=== PATIENT | female | born 1950 | race Hispanic/Latino ===

== ENCOUNTER 2017-12-04 22:34 | Emergency (ER) | payer OTHER ==
[2017-12-04 23:45] LABS: Urine Blood 1+ (NEG); Urine Glucose NEGATIVE (NEG); Urine Protein NEGATIVE (NEG); Urine Specific Gravity >1.030 (1.005-1.030); Urine pH 5.5 (5.0-7.0)
--- NOTE | 2017-12-05 00:12 | ER ---
Nurse's Notes [facility] Name: Shelia Valentine Age: 67 yrs Sex: Female : 1950 Arrival Date: 12/04/2017 Time: 22:37 Bed 6 Private MD: Diagnosis: Strain of other muscle(s) and tendon(s) at lower leg level, left leg;Headache Presentation: 12/04 22:40 Presenting complaint: Patient states: Patient reports her lower left leg and back ea started hurting yesterday and today it started to get worse today. Transition of care: patient was not received from another setting of care. Onset of symptoms was December 04, 2017. Care prior to arrival: None. 22:40 Method Of Arrival: Ambulatory ea 22:40 Acuity: ADDI 4 ea Triage Assessment: 22:40 Headache History: The patient has had previous headaches and this one is similar to ea previous episodes. General: Appears in no apparent distress. Behavior is calm, cooperative, appropriate for age. Pain: Complains of pain in left leg. 22:40 Pain: Pain currently is 7 out of 10 on a pain scale. Pain began 2-3 days ago. Also ea complains of no other associated symptoms. Historical: - Allergies: 23:07 Cipro; ea 23:07 Codeine; ea 23:07 HYDROCODONE; ea 23:07 Morphine; ea 23:07 PENICILLINS; ea 23:07 Sulfa (Sulfonamide Antibiotics); ea - Home Meds: 23:07 lisinopril 20 mg Oral tab twice daily [Active]; ea - PMHx: 23:07 Hypertension; GERD; BRADYCARDIA; ea - PSHx: 23:07 Appendectomy; PACEMAKER; ea - Immunization history:: Adult Immunizations. - Social history:: Smoking status: Patient/guardian denies using tobacco. Screenin:45 Abuse screen: Denies threats or abuse. Nutritional screening: No deficits noted. ea Tuberculosis screening: No symptoms or risk factors identified. Fall Risk None identified. Assessment: 23:45 Reassessment: Patient and/or family updated on plan of care and expected duration. Pain ea level reassessed. Patient is alert, oriented x 3, equal unlabored respirations, skin warm/dry/pink. 23:45 Reassessment: Patient and/or family updated on plan of care and expected duration. Pain ea level reassessed. Patient is alert, oriented x 3, equal unlabored respirations, skin warm/dry/pink. Pain: Complains of pain in left leg. Neuro: Level of Consciousness is awake, alert, obeys commands, Oriented to person, place, time, situation. 23:45 General: Behavior is calm, cooperative, appropriate for age. Cardiovascular: Patient's ea skin is warm and dry. Respiratory: Airway is patent Respiratory effort is even, unlabored, Respiratory pattern is regular, symmetrical. GI: No signs and/or symptoms were reported involving the gastrointestinal system. : No signs and/or symptoms were reported regarding the genitourinary system. 23:45 Derm: No signs and/or symptoms reported regarding the dermatologic system. Skin is ea pink, warm \T\ dry. 12/05 00:29 Reassessment: Patient and/or family updated on plan of care and expected duration. Pain ea level reassessed. Patient is alert, oriented x 3, equal unlabored respirations, skin warm/dry/pink. Discharge instruction given to patient, verbalized the understanding of instruction. Patient states feeling better. Patient states symptoms have improved. Vital Signs: 12/04 22:47 BP 159 / 87; Pulse 81; Resp 18; Temp 98.7(O); Pulse Ox 96% on R/A; Weight 72.57 kg; ea Height 5 ft. 2 in. (157.48 cm); Pain 7/10; 23:00 BP 120 / 67; Pulse 67; Resp 18 S; Pulse Ox 98% on R/A; ea 12/05 00:14 BP 129 / 79; Pulse 64; Resp 18 S; Pulse Ox 96% on R/A; ea 00:30 BP 132 / 78; Pulse 66; Resp 18; Temp 97.8(O); Pulse Ox 99% on R/A; Pain 0/10; ea 12/04 22:47 Body Mass Index 29.26 (72.57 kg, 157.48 cm) ea ED Course: 12/04 22:37 Patient arrived in ED. mr 22:52 Nash Matthew NP is PHCP. pm1 22:52 Fabián Cabrera MD is Attending Physician. pm1 22:57 Nayana Avery RN is Primary Nurse. ea 23:05 Triage completed. ea 23:45 Arm band placed on right wrist. Patient placed in an exam room, on a stretcher, on ea pulse oximetry. 23:45 Patient has correct armband on for positive identification. Bed in low position. Call ea light in reach. Side rails up X 1. 12/05 00:11 Domenico Jimenes MD is Referral Physician. pm1 00:30 No provider procedures requiring assistance completed. Patient did not have IV access ea during this emergency room visit. Administered Medications: No medications were administered Outcome: 00:12 Discharge ordered by MD. pm1 00:31 Discharged to home ambulatory. ea 00:31 Condition: improved 00:31 Discharge instructions given to patient, Instructed on discharge instructions, follow up and referral plans. medication usage, Demonstrated understanding of instructions, follow-up care, medications, Prescriptions given X 1. 00:31 Patient left the ED. ea Signatures: Meli Christie TiffNash, RETORT FIRER RETORT FIRER pm1 Nayana Avery RN RN ea Corrections: (The following items were deleted from the chart) 00:18 00:16 Reassessment: Patient and/or family updated on plan of care and expected ea duration. Pain level reassessed. Patient is alert, oriented x 3, equal unlabored respirations, skin warm/dry/pink. ea 00:18 00:16 Pain: Complains of pain in left leg ea ea 00: 00:16 Neuro: Level of Consciousness is awake, alert, obeys commands, Oriented to ea person, place, time, situation, ea 00:18 12/04 23:45 Reassessment: Patient and/or family updated on plan of care and expected ea duration. Pain level reassessed. Patient is alert, oriented x 3, equal unlabored respirations, skin warm/dry/pink. ea
--- NOTE | 2017-12-05 00:13 | EDPHYS ---
Physician Documentation [facility] Name: Shelia Valentine Age: 67 yrs Sex: Female : 1950 Arrival Date: 12/04/2017 Time: 22:37 Bed 6 Private MD: ED Physician Fabián Cabrera HPI: 12/05 01:00 This 67 yrs old Female presents to ER via Ambulatory with complaints of pm1 Headache, Left Leg Pain, Abdominal pain. 03:48 The patient complains of pain to the forehead. The patient describes the headache as pm1 aching, Resolved and occasionally present when her pressure is elevated. Patient ran out of her lisinopril 20 mg PO BID for the past three days. Onset: The symptoms/episode began/occurred 3 day(s) ago. Associated signs and symptoms: Pertinent negatives: dizziness, fever, nausea, rash, sinus congestion, sinus tenderness, vomiting, weakness. Severity of symptoms: in the emergency department the pain has resolved. Patient with additional complaints of left lower leg pain for 1 month. No swelling, redness or warmth. Pain improved with massage to left lower leg. Patient reports onset of abdominal pain today that started after eating fried chicken and potatoes. Abdominal pain resolved after bowel movement in the ER. Historical: - Allergies: 12/04 23:07 Cipro; ea 23:07 Codeine; ea 23:07 HYDROCODONE; ea 23:07 Morphine; ea 23:07 PENICILLINS; ea 23:07 Sulfa (Sulfonamide Antibiotics); ea - Home Meds: 23:07 lisinopril 20 mg Oral tab twice daily [Active]; ea - PMHx: 23:07 Hypertension; GERD; BRADYCARDIA; ea - PSHx: 23:07 Appendectomy; PACEMAKER; ea - Immunization history:: Adult Immunizations. - Social history:: Smoking status: Patient/guardian denies using tobacco. ROS: 12/05 03:48 Constitutional: Negative for fever, chills, and weight loss, Eyes: Negative for injury, pm1 pain, redness, and discharge, ENT: Negative for injury, pain, and discharge, Neck: Negative for injury, pain, and swelling, Cardiovascular: Negative for chest pain, palpitations, and edema, Respiratory: Negative for shortness of breath, cough, wheezing, and pleuritic chest pain. Back: Negative for injury and pain. Skin: Negative for injury, rash, and discoloration. Abdomen/GI: Positive for abdominal pain, resolved after bowel movement, Negative for nausea, vomiting, and diarrhea. : Positive for Occasional burning with urination for the past three days, Negative for urinary frequency, small amounts, flank pain. MS/extremity: Positive for pain, of the lateral aspect of left calf, Negative for decreased range of motion, deformity, ecchymosis, erythema, swelling. Neuro: Positive for headache, Negative for numbness, tingling. Exam: 03:53 Constitutional: This is a well developed, well nourished patient who is awake, alert, pm1 and in no acute distress. Head/Face: Normocephalic, atraumatic. Eyes: Pupils equal round and reactive to light, extra-ocular motions intact. Lids and lashes normal. Conjunctiva and sclera are non-icteric and not injected. Cornea within normal limits. Periorbital areas with no swelling, redness, or edema. ENT: Nares patent. No nasal discharge, no septal abnormalities noted. Tympanic membranes are normal and external auditory canals are clear. Oropharynx with no redness, swelling, or masses, exudates, or evidence of obstruction, uvula midline. Mucous membranes moist. Neck: Trachea midline, no thyromegaly or masses palpated, and no cervical lymphadenopathy. Supple, full range of motion without nuchal rigidity, or vertebral point tenderness. No Meningismus. Chest/axilla: Normal chest wall appearance and motion. Nontender with no deformity. No lesions are appreciated. Cardiovascular: Regular rate and rhythm with a normal S1 and S2. No gallops, murmurs, or rubs. Normal PMI, no JVD. No pulse deficits. Respiratory: Lungs have equal breath sounds bilaterally, clear to auscultation and percussion. No rales, rhonchi or wheezes noted. No increased work of breathing, no retractions or nasal flaring. Abdomen/GI: Soft, non-tender, with normal bowel sounds. No distension or tympany. No guarding or rebound. No evidence of tenderness throughout. Back: No spinal tenderness. No costovertebral tenderness. Full range of motion. Skin: Warm, dry with normal turgor. Normal color with no rashes, no lesions, and no evidence of cellulitis. MS/ Extremity: Pulses equal, no cyanosis. Neurovascular intact. Full, normal range of motion. 03:53 Neuro: Orientation: is normal, Mentation: is normal, Cranial nerves: CN II- XII are normal as tested, Cerebellar function: normal finger to nose testing, Motor: is normal, moves all fours, strength is normal, strength is 5/5 in all extremities, Sensation: is normal, no obvious gross deficits, Gait: is steady, at a normal pace, without difficulty. Vital Signs: 12/04 22:47 BP 159 / 87; Pulse 81; Resp 18; Temp 98.7(O); Pulse Ox 96% on R/A; Weight 72.57 kg; ea Height 5 ft. 2 in. (157.48 cm); Pain 7/10; 23:00 BP 120 / 67; Pulse 67; Resp 18 S; Pulse Ox 98% on R/A; ea 12/05 00:14 BP 129 / 79; Pulse 64; Resp 18 S; Pulse Ox 96% on R/A; ea 00:30 BP 132 / 78; Pulse 66; Resp 18; Temp 97.8(O); Pulse Ox 99% on R/A; Pain 0/10; ea 12/04 22:47 Body Mass Index 29.26 (72.57 kg, 157.48 cm) ea MDM: 12/04 23:01 Patient medically screened. pm1 12/05 00:10 Counseling: I had a detailed discussion with the patient and/or guardian regarding: the pm1 historical points, exam findings, and any diagnostic results supporting the discharge/admit diagnosis, lab results, the need for outpatient follow up, to return to the emergency department if symptoms worsen or persist or if there are any questions or concerns that arise at home. 03:53 Data reviewed: vital signs. Data interpreted: Pulse oximetry: on room air is 99 %. pm1 Interpretation: normal. 12/04 23:29 Order name: Urine Dipstick--Ancillary (enter results) rg2 12/04 23:45 Order name: Urine Dipstick-Ancillary; Complete Time: 00:39 EDMS 12/04 23:09 Order name: Urine Dipstick-Ancillary (obtain specimen); Complete Time: 23:33 pm1 Administered Medications: No medications were administered Disposition: 12/05/17 00:12 Discharged to Home. Impression: Strain of other muscle(s) and tendon(s) at lower leg level, left leg, Headache. - Condition is Stable. - Discharge Instructions: General Headache Without Cause, Muscle Strain. - Prescriptions for Lisinopril 20 mg Oral Tablet - take 1 tablet by ORAL route every 12 hours; 20 tablet. - Medication Reconciliation Form, Thank You Letter form. - Follow up: Domenico Jimenes MD; When: 2 - 3 days; Reason: Recheck today's complaints, Continuance of care, Re-evaluation by your physician. - Problem is new. - Symptoms have improved. Addendum: 12/09/2017 06:24 Co-signature as Attending Physician, Fabián Cabrera MD. g s Signatures: Dispatcher [employer] EDMS Nash Matthew, GO GO DANCER GO GO DANCER pm1 Nayana Avery, RN Fabián Bess ea, MD MD
[2017-12-05 01:48] VITALS: BP 132/78; TEMP 97.8; O2SAT 99
== END 2017-12-05 00:31 | disposition home or self-care (01) ==
LOC: ER 22:34
DX: S39.012A Strain of muscle, fascia and tendon of lower back, initial encounter (principal); I10 Essential (primary) hypertension; Z95.0 Presence of cardiac pacemaker; Z88.0 Allergy status to penicillin; Z88.1 Allergy status to other antibiotic agents; Z88.2 Allergy status to sulfonamides; Z88.5 Allergy status to narcotic agent
CPT/HCPCS: 81003; 99283

== ENCOUNTER 2018-02-25 14:33 | Observation (INO) | payer OTHER ==
[2018-02-25] MEDS ORDERED: FENTANYL CITR 100 MCG/2 ML ONE (15:47)
[2018-02-25] MEDS ORDERED: ONDANSETRON 4 MG/2 ML VIAL ONE (15:47)
[2018-02-25] MEDS ORDERED: PANTOPRAZOLE 40 MG INJ ONE (15:48)
[2018-02-25 15:55] LABS: Absolute Lymphocytes (CBC) 1.9 K/uL (0.7-4.9); Absolute Monocytes 0.5 K/uL (0.1-1.3); Absolute Neutrophil 3.9 K/uL (1.8-8.0); Basophils % 0.5 % (0-1.3); Hematocrit 41.3 % (36.0-45.0); Lymphocytes % 29.2 % (15.3-44.8); MCH 27.4 pg (27.0-35.0); MCV 84.4 fL (80-100); MPV 8.6 fL (7.6-11.3); Monocytes % 7.7 % (3.3-12.3)
--- NOTE | 2018-02-25 16:01 | RAD REPORT ---
EXAM DESCRIPTION: RAD - Chest Single View - 02/25/2018 3:46 pm CLINICAL HISTORY: Chest pain. COMPARISON: 12/06/2017 FINDINGS: Portable technique limits examination quality. The lungs are grossly clear. The heart is normal in size. Dual lead pacer device. No displaced fractu res. IMPRESSION: No acute intrathoracic process suspected.
[2018-02-25 16:24] LABS: Bicarbonate 25 mEq/L (21-31); CKMB Creatine Kinase MB 4.2 ng/ml (0.3-4.0); Glucose Level 114 mg/dL (65-120); Potassium 4.4 mEq/L (3.6-5.0); Sodium Level 140 mEq/L (135-145)
[2018-02-25 16:30] LABS: ALT/SGPT 21 IU/L (10-60); AST/SGOT 25 IU/L (10-42); Alkaline Phosphatase 73 IU/L (42-121); BUN Blood Urea Nitrogen 19 mg/dL (6-20); Bilirubin Direct < 0.1 mg/dL (0-0.2); Bilirubin Total 0.2 mg/dL (0.3-1.2); Creatine Phosphokinase 245 IU/L (22-269); Magnesium 2.3 mg/dL (1.8-2.5); Protein, Total 8.4 g/dL (6.0-8.3)
--- NOTE | 2018-02-25 16:52 | EDPHYS ---
Physician Documentation [facility] Name: Shelia Valentine Age: 67 yrs Sex: Female : 1950 Arrival Date: 02/25/2018 Time: 14:37 Bed 5 Private MD: Domenico Jimenes E ED Physician Miguel Martinez HPI: 02/25 15:40 This 67 yrs old Female presents to ER via Ambulatory with complaints of arin Nausea, Diarrhea, Chest Pressure, Abdominal Pain. 15:40 The patient presents to the emergency department with nausea, diarrhea, abdominal pain, arin of the epigastric area, right upper quadrant and left upper quadrant. Onset: The symptoms/episode began/occurred this morning. Possible causes: unknown. The symptoms are aggravated by nothing. The symptoms are alleviated by nothing. Associated signs and symptoms: The patient has no apparent associated signs or symptoms. Historical: - Allergies: 14:42 Cipro; hb 14:42 Codeine; hb 14:42 Demerol; hb 14:42 HYDROCODONE; hb 14:42 Morphine; hb 14:42 PENICILLINS; hb 14:42 Sulfa (Sulfonamide Antibiotics); hb - Home Meds: 14:42 lisinopril 20 mg Oral tab twice daily [Active]; hb - PMHx: 14:42 BRADYCARDIA; GERD; Hypertension; hb - PSHx: 14:42 PACEMAKER; Appendectomy; hb - Immunization history:: Adult Immunizations up to date. - Social history:: Smoking status: Patient/guardian denies using tobacco. - Ebola Screening: : No symptoms or risks identified at this time. ROS: 15:42 Constitutional: Negative for fever, chills, and weight loss, Eyes: Negative for injury, arin pain, redness, and discharge, ENT: Negative for injury, pain, and discharge, Neck: Negative for injury, pain, and swelling, Cardiovascular: Negative for chest pain, palpitations, and edema, Respiratory: Negative for shortness of breath, cough, wheezing, and pleuritic chest pain, Back: Negative for injury and pain, : Negative for injury, bleeding, discharge, and swelling, MS/Extremity: Negative for injury and deformity, Skin: Negative for injury, rash, and discoloration, Neuro: Negative for headache, weakness, numbness, tingling, and seizure, Psych: Negative for depression, anxiety, suicide ideation, homicidal ideation, and hallucinations, Allergy/Immunology: Negative for hives, rash, and allergies, Endocrine: Negative for neck swelling, polydipsia, polyuria, polyphagia, and marked weight changes. 15:42 Abdomen/GI: Positive for abdominal pain, nausea, diarrhea, abdominal cramps, abdominal distension. Exam: 15:42 Constitutional: This is a well developed, well nourished patient who is awake, alert, arin and in no acute distress. Head/Face: Normocephalic, atraumatic. Eyes: Pupils equal round and reactive to light, extra-ocular motions intact. Lids and lashes normal. Conjunctiva and sclera are non-icteric and not injected. Cornea within normal limits. Periorbital areas with no swelling, redness, or edema. ENT: Nares patent. No nasal discharge, no septal abnormalities noted. Tympanic membranes are normal and external auditory canals are clear. Oropharynx with no redness, swelling, or masses, exudates, or evidence of obstruction, uvula midline. Mucous membranes moist. Neck: Trachea midline, no thyromegaly or masses palpated, and no cervical lymphadenopathy. Supple, full range of motion without nuchal rigidity, or vertebral point tenderness. No Meningismus. Chest/axilla: Normal chest wall appearance and motion. Nontender with no deformity. No lesions are appreciated. Cardiovascular: Regular rate and rhythm with a normal S1 and S2. No gallops, murmurs, or rubs. Normal PMI, no JVD. No pulse deficits. Respiratory: Lungs have equal breath sounds bilaterally, clear to auscultation and percussion. No rales, rhonchi or wheezes noted. No increased work of breathing, no retractions or nasal flaring. Back: No spinal tenderness. No costovertebral tenderness. Full range of motion. Female : Normal external genitalia. Skin: Warm, dry with normal turgor. Normal color with no rashes, no lesions, and no evidence of cellulitis. MS/ Extremity: Pulses equal, no cyanosis. Neurovascular intact. Full, normal range of motion. Neuro: Awake and alert, GCS 15, oriented to person, place, time, and situation. Cranial nerves II-XII grossly intact. Motor strength 5/5 in all extremities. Sensory grossly intact. Cerebellar exam normal. Normal gait. Psych: Awake, alert, with orientation to person, place and time. Behavior, mood, and affect are within normal limits. Vital Signs: 14:41 BP 128 / 94; Pulse 84; Resp 18; Temp 98; Pulse Ox 96% on R/A; Pain 8/10; hb 15:27 BP 134 / 85; Pulse 72; Resp 14 S; Pulse Ox 97% on R/A; Pain 8/10; jl7 16:37 BP 127 / 72; Pulse 61; Resp 18; Pulse Ox 94% ; Pain 7/10; jl7 17:30 BP 127 / 77; Pulse 68; Resp 16; Pulse Ox 100% ; jl7 MDM: 14:51 Patient medically screened. [facility] 15:44 Data reviewed: vital signs, nurses notes, EMS record, lab test result(s), EKG, [facility] radiologic studies. 02/25 15:29 Order name: Basic Metabolic Panel; Complete Time: 16:46 [facility] 02/25 15:29 Order name: BNP; Complete Time: 16:46 [facility] 02/25 15:29 Order name: CBC with Diff; Complete Time: 16:46 [facility] 02/25 15:29 Order name: Ckmb; Complete Time: 16:46 [facility] 02/25 15:29 Order name: CPK; Complete Time: 16:46 [facility] 02/25 15:29 Order name: LFT's; Complete Time: 16:46 [facility] 02/25 15:29 Order name: Magnesium; Complete Time: 16:46 [facility] 02/25 15:29 Order name: PT-INR; Complete Time: 16:46 [facility] 02/25 15:29 Order name: Ptt, Activated; Complete Time: 16:46 [facility] 02/25 15:29 Order name: Troponin (emerg Dept Use Only); Complete Time: 16:46 [facility] 02/25 15:30 Order name: Urine Dipstick--Ancillary (enter results) 02/25 15:36 Order name: Lipase; Complete Time: 16:46 [facility] 02/25 15:40 Order name: Stool Culture [facility] 02/25 15:40 Order name: Fecal Leukocyte Stain [facility] 02/25 15:29 Order name: XRAY Chest (1 view); Complete Time: 16:46 [facility] 02/25 15:29 Order name: EKG; Complete Time: 15:30 [facility] 02/25 15:29 Order name: Cardiac monitoring; Complete Time: 15:30 [facility] 02/25 15:29 Order name: EKG - Nurse/Tech; Complete Time: 15:30 [facility] 02/25 15:29 Order name: IV Saline Lock; Complete Time: 15:30 [facility] 02/25 15:29 Order name: Labs collected and sent; Complete Time: 15:30 [facility] 02/25 15:36 Order name: CT Abd/Pelvis - W/Contrast [facility] 02/25 15:40 Order name: CDIFF [facility] 02/25 15:43 Order name: Urine Culture [facility] 02/25 16:55 Order name: CONS Physician Consult [facility] 02/25 17:29 Order name: CT; Complete Time: 18:14 [facility] 02/25 15:29 Order name: O2 Per Protocol; Complete Time: 15:30 [facility] 02/25 15:29 Order name: O2 Sat Monitoring; Complete Time: 15:30 [facility] 02/25 15:29 Order name: Urine Dipstick-Ancillary (obtain specimen); Complete Time: 15:30 jl Administered Medications: 15:43 Drug: Zofran 4 mg Route: IVP; Site: right antecubital; jl7 16:38 Follow up: Response: No adverse reaction; Nausea is decreased jl7 15:45 Drug: ProTONIX 40 mg Route: IVP; Site: right antecubital; jl7 16:38 Follow up: Response: No adverse reaction jl7 15:49 Drug: fentaNYL (PF) 25 mcg Route: IVP; Site: right antecubital; jl7 16:38 Follow up: Response: No adverse reaction; Pain is decreased jl7 Disposition: 02/25/18 16:52 Hospitalization ordered by Oscar Myers for Observation. Preliminary diagnosis are Abdominal tenderness, Other chest pain, Diarrhea, unspecified. - Bed requested for Telemetry/MedSurg (observation). - Status is Observation. jl7 - Condition is Stable. - Problem is new. - Symptoms have improved. UTI on Admission? No Signatures: Dispatcher [employer] [facility] Concepcion Reid, RN Miguel Medina MD MD cha Baxter, Heather, RN RN Jeannine Ariza RN RN jl7 Corrections: (The following items were deleted from the chart) 17:52 16:52 Hospitalization Ordered by Oscar Myers DO for Observation. Preliminary dw diagnosis is Abdominal tenderness; Other chest pain; Diarrhea, unspecified. Bed requested for Telemetry/MedSurg (observation). Status is Observation. Condition is Stable. Problem is new. Symptoms have improved. UTI on Admission? No. arin 18:18 17:52 02/25/2018 16:52 Hospitalization Ordered by Oscar Myers DO for Observation. jl7 Preliminary diagnosis is Abdominal tenderness; Other chest pain; Diarrhea, unspecified. Bed requested for Telemetry/MedSurg (observation). Status is Observation. Condition is Stable. Problem is new. Symptoms have improved. UTI on Admission? No. dw
--- NOTE | 2018-02-25 16:52 | ER ---
Nurse's Notes [facility] Name: Shelia Valentine Age: 67 yrs Sex: Female : 1950 Arrival Date: 02/25/2018 Time: 14:37 Bed 5 Private MD: Domenico Jimenes E Diagnosis: Abdominal tenderness;Other chest pain;Diarrhea, unspecified Presentation: 02/25 14:39 Presenting complaint: Patient states: Chest pressure, upper abdominal pain, nausea, and hb diarrhea since this morning. Transition of care: patient was not received from another setting of care. Onset of symptoms was February 25, 2018. Risk Assessment: Do you want to hurt yourself or someone else? Patient reports no desire to harm self or others. Care prior to arrival: None. 14:39 Method Of Arrival: Ambulatory hb 14:39 Acuity: ADDI 3 hb 14:45 Initial Sepsis Screen: Does the patient meet any 2 criteria? No. Patient's initial jl7 sepsis screen is negative. Does the patient have a suspected source of infection? No. Patient's initial sepsis screen is negative. Historical: - Allergies: 14:42 Cipro; hb 14:42 Codeine; hb 14:42 Demerol; hb 14:42 HYDROCODONE; hb 14:42 Morphine; hb 14:42 PENICILLINS; hb 14:42 Sulfa (Sulfonamide Antibiotics); hb - Home Meds: 14:42 lisinopril 20 mg Oral tab twice daily [Active]; hb - PMHx: 14:42 BRADYCARDIA; GERD; Hypertension; hb - PSHx: 14:42 PACEMAKER; Appendectomy; hb - Immunization history:: Adult Immunizations up to date. - Social history:: Smoking status: Patient/guardian denies using tobacco. - Ebola Screening: : No symptoms or risks identified at this time. Screenin:57 Abuse screen: Denies threats or abuse. Denies injuries from another. Nutritional jl7 screening: No deficits noted. Tuberculosis screening: No symptoms or risk factors identified. Fall Risk IV access (20 points). Total Bhatt Fall Scale indicates No Risk (0-24 pts). Assessment: 15:00 General: Appears in no apparent distress. uncomfortable, Behavior is calm, cooperative. jl7 Pain: Complains of pain in epigastric area, right upper quadrant and left upper quadrant Pain does not radiate. Pain currently is 8 out of 10 on a pain scale. Quality of pain is described as burning, Pain began 2-3 days ago. Is continuous. Pain: Complains of pain in mid-sternal area Pain does not radiate. Pain currently is 2 out of 10 on a pain scale. Quality of pain is described as pressure, Pain began 4 hours ago. Is continuous. Neuro: Level of Consciousness is awake, alert, obeys commands, Oriented to person, place, time, situation. Cardiovascular: Heart tones S1 S2 present Patient's skin is warm and dry. Rhythm is sinus rhythm. Respiratory: Airway is patent Respiratory effort is even, unlabored, Respiratory pattern is regular, symmetrical, Breath sounds are clear bilaterally. GI: Abdomen is round non-distended, Stools are reported to be diarrhea. Last BM at 15:00. Bowel sounds present X 4 quads. Abd is soft and non tender X 4 quads. Reports diarrhea, nausea, Patient currently denies vomiting. : No signs and/or symptoms were reported regarding the genitourinary system. EENT: No signs and/or symptoms were reported regarding the EENT system. Derm: Skin is pink, warm \T\ dry. Musculoskeletal: No signs and/or symptoms reported regarding the musculoskeletal system. 15:50 Reassessment: pt finished drinking oral contrast, CT notified. jl7 16:30 Reassessment: Patient and/or family updated on plan of care and expected duration. Pain jl7 level reassessed. Patient is alert, oriented x 3, equal unlabored respirations, skin warm/dry/pink. Patient states feeling better. 17:30 Reassessment: Patient and/or family updated on plan of care and expected duration. Pain jl7 level reassessed. Patient is alert, oriented x 3, equal unlabored respirations, skin warm/dry/pink. Vital Signs: 14:41 BP 128 / 94; Pulse 84; Resp 18; Temp 98; Pulse Ox 96% on R/A; Pain 8/10; hb 15:27 BP 134 / 85; Pulse 72; Resp 14 S; Pulse Ox 97% on R/A; Pain 8/10; jl7 16:37 BP 127 / 72; Pulse 61; Resp 18; Pulse Ox 94% ; Pain 7/10; jl7 17:30 BP 127 / 77; Pulse 68; Resp 16; Pulse Ox 100% ; jl7 ED Course: 14:37 Patient arrived in ED. mr 14:37 Domenico Jimenes MD is Private Physician. mr 14:41 Triage completed. hb 14:42 Arm band placed on left wrist. hb 14:51 Miguel Martinez MD is Attending Physician. arin 14:53 Jeannine Gavin RN is Primary Nurse. jl7 14:57 Patient has correct armband on for positive identification. Placed in gown. Bed in low jl7 position. Call light in reach. Side rails up X 1. environmental monitoring specialist on. Pulse ox on. NIBP on. Warm blanket given. 14:57 Patient maintains SpO2 saturation greater than 95% on room air. jl7 15:27 Initial lab(s) drawn, by me, sent to lab. Inserted saline lock: 22 gauge in right jl7 antecubital area, using aseptic technique. Blood collected. 15:45 Oral contrast given. vm2 15:45 XRAY Chest (1 view) In Process Unspecified. EDMS 15:52 Oral contrast reported to be complete. vm2 16:51 Oscar Myers DO is Hospitalizing Provider. arin 17:[address] via stretcher. vr 17:16 CT completed. Patient tolerated procedure well. Patient moved back from CT. vr 18:17 No provider procedures requiring assistance completed. Patient admitted, IV remains in jl7 place. intact, No redness/swelling at site. Administered Medications: 15:43 Drug: Zofran 4 mg Route: IVP; Site: right antecubital; jl7 16:38 Follow up: Response: No adverse reaction; Nausea is decreased jl7 15:45 Drug: ProTONIX 40 mg Route: IVP; Site: right antecubital; jl7 16:38 Follow up: Response: No adverse reaction jl7 15:49 Drug: fentaNYL (PF) 25 mcg Route: IVP; Site: right antecubital; jl7 16:38 Follow up: Response: No adverse reaction; Pain is decreased jl7 Outcome: 16:52 Decision to Hospitalize by Provider. arin 18:17 Admitted to Med/surg accompanied by tk, via wheelchair, room 211, with chart, Report jl7 called to KOBI Whiteside 18:17 Condition: stable 18:17 Discharge instructions given to patient, Instructed on the need for admit, Demonstrated understanding of instructions. 18:18 Patient left the ED. jl7 Signatures: Dispatcher [employer] EDMS Miguel Martinez MD MD cha Rivera, Maria mr Davis, Victoria vr Baxter, Heather, RN RN hb Leal, Jahala, RN RN jl7 McGuire, Victoria vm2 Corrections: (The following items were deleted from the chart) 14:41 14:39 Presenting complaint: Patient states: Chest pressure, nausea, and diarrhea since this morning. hb
--- NOTE | 2018-02-25 17:29 | RAD REPORT ---
EXAM DESCRIPTION: CTAbdomen Pelvis W Contrast - 02/25/2018 5:17 pm CLINICAL HISTORY: Abdominal pain. COMPARISON: 12/06/2017, 09/13/2016 TECHNIQUE: Biphasic CT imaging of the abdomen and pelvis was performed with 100 ml non-ionic IV cont rast. All CT scans are performed using dose optimization technique as appropriate and may include automated exposure control or mA/KV adjustment according to patient size. FINDINGS: The lung bases are clear.Small hiatal hernia is present with contrast in the distal esopha shaylee suggesting GERD. The liver demonstrates mild fatty infiltration. A cyst is present in the right lobe measuring 2.6 cm. Cholecystectomy clips are noted. The spleen, pancreas, adrenal glands and kidneys are within normal limits. No bowel obstruction, free air, free fluid or abscess. Scattered colonic diverticulosis without diver ticulitis. The appendix is normal. No evidence of significant lymphadenopathy. No suspicious bony findings. IMPRESSION: No acute intra-abdominal or pelvic finding. Gastroesophageal reflux suspected. Mild fatty liver. Colonic diverticulosis without diverticulitis.
[2018-02-25] MEDS ORDERED: ONDANSETRON 4 MG/2 ML VIAL IV PRN (17:35)
[2018-02-25] MEDS ORDERED: SODIUM CHLORIDE 0.9% 10ML INJ IV PRN (17:35)
--- NOTE | 2018-02-25 17:45 | P.HP ---
Certification for Inpatient Patient admitted to: Observation With expected LOS: <2 Midnights Patient will require the following post-hospital care: None Practitioner: I am a practitioner with admitting privileges, knowledge of patient current condition, hospital course, and medical plan of care. Services: Services provided to patient in accordance with Admission requirements found in Title 42 Section 412.3 of the Code of Federal Regulations Patient History Date of Service: 02/25/18 Primary Care Provider: Dr. Jimenes Reason for admission: Epigastric abdominal pain, diarrhea History of Present Illness: 67-year-old female presented emergency room with epigastric pain and diarrhea. The patient reports that she has been having epigastric pain since the Tuesday. Pain has been getting slightly worse. It is associated with diarrhea. She reports that the stooled is green in color. She denied any fever. Patient had nausea today. Pain persisted to the point to where she came to the ER for evaluation. She denied any significant shortness of breath, significant chest pain. Patient with history of hypertension, history of pacemaker, and GERD. In the ER patient was evaluated. White count 6.4, hemoglobin 13.4. Sodium 140 , potassium 4.4, BUN of 19, creatinine 1.16 with a GFR 47. Glucose 114. Initial cardiac enzymes unremarkable. Lipase unremarkable. Chest the normal. CT showed GERD changes, fatty liver, diverticulosis without diverticulitis noted. Chest x-ray unremarkable. Due to the changes the patient was admitted for observation. When I saw the patient ER, she appeared comfortable. Patient still reported some diarrhea. She is without any significant chest pain or shortness of breath. Patient stable. Patient admitted 3 months ago for renal insufficiency. Allergies codeine [Codeine] Allergy (Mild, Verified 10/30/16 14:36) Hives/Rash Penicillins Allergy (Mild, Verified 10/30/16 14:36) Hives/Rash meperidine [From Demerol] Allergy (Verified 12/07/17 04:54) Unknown morphine Allergy (Verified 10/30/16 14:36) Nausea/Vomiting ciprofloxacin [From Cipro] Adverse Reaction (Mild, Verified 10/30/16 14:36) Itching/Hives/Rash hydrocodone Adverse Reaction (Mild, Verified 10/30/16 14:36) Nausea/Vomiting Sulfa (Sulfonamide Antibiotics) [Sulfa(Sulfonamide Antibiotics)] Adverse Reaction (Mild, Verified 10/30/16 14:36) vomitting Home Medications: Lisinopril [Prinivil*] 20 mg PO BID 09/21/15 Pantoprazole [Protonix Tab] 40 mg PO DAILY #30 tab 12/07/17 - Past Medical/Surgical History Diabetic: No -: CAD, Cardiology-Dr. Rodgers -: GERD with hiatal hernia -: HTN -: Cervical Radiculopathy 2013 -: Bradycardia, pacemaker placement -: History of pancreatitis -: Liver cyst -: Left adrenal adenoma -: Left ovarian cyst -: Pacemaker placement -: Cholecystectomy -: x4 Psychosocial/ Personal History: . She currently lives by herself. She has 3 children. - Family History Mother -: Hypertension, Diabetes Notes: obese - Social History Smoking Status: Never smoker Alcohol use: No CD- Drugs: No Caffeine use: Yes Place of Residence: Home Review of Systems General: Weakness, As per HPI Eyes: Unremarkable ENT: Unremarkable Respiratory: Unremarkable Cardiovascular: Unremarkable Gastrointestinal: Nausea, Abdominal Pain, Diarrhea, As per HPI Genitourinary: Unremarkable Musculoskeletal: Unremarkable Integumentary: Unremarkable Neurological: Unremarkable Lymphatics: Unremarkable Physical Examination - Physical Exam General: Alert, In no apparent distress, Oriented x3, Cooperative HEENT: Atraumatic, Normocephalic, PERRLA, Other (Dry mucous membranes) Neck: Supple, No Thyromegaly Respiratory: Clear to auscultation bilaterally, Normal air movement Cardiovascular: Normal pulses, Regular rate/rhythm Gastrointestinal: Normal bowel sounds, Soft and benign, Non-distended, No masses , No rebound, No guarding, Tenderness (Mild pain to the epigastric region) Musculoskeletal: No erythema, No tenderness, No warmth Integumentary: No tenderness/swelling, No erythema, No warmth, No cyanosis Neurological: Normal speech, Normal strength at 5/5 x4 extr, Normal tone, Normal affect - Studies Laboratory Data (last 24 hrs) 02/25/18 15:15: Lipase 26 02/25/18 15:15: PT 11.8, INR 1.00, APTT 29.6 02/25/18 15:15: WBC 6.4, Hgb 13.4, Hct 41.3, Plt Count 215 02/25/18 15:15: B-Natriuretic Peptide 14 02/25/18 15:15: Sodium 140, Potassium 4.4, BUN 19, Creatinine 1.16 H, Glucose 114, Magnesium 2.3, Total Bilirubin 0.2 L, AST 25, ALT 21, Alkaline Phosphatase 73 Assessment and Plan - Problems (Diagnosis) (1) Gastroenteritis Current Visit: Yes Status: Acute Plan: Suspect viral gastroenteritis. Patient also with GERD and hiatal hernia. Will provide IV ppi. Will start Flagyl IV. Will continue with IV fluids. Will evaluate stool for possible C diff colitis. Will advance diet as tolerated. If patient much improved tomorrow then will plan to discharge. Patient with renal insufficiency likely from mild dehydration. (2) Epigastric abdominal pain Current Visit: No Status: Acute Plan: Likely from GERD with hiatal hernia. Will continue IV PPI twice daily. Continue as above. (3) HTN (hypertension) Onset Date: 09/22/15 Current Visit: No Status: Chronic Plan: Will continue with her medication. Qualifiers: Hypertension type: essential hypertension (4) Hiatal hernia with GERD Current Visit: No Status: Chronic Plan: Patient with history of GERD with hiatal hernia. Will continue with PPI. (5) Renal insufficiency Onset Date: 09/22/15 Current Visit: No Status: Acute Plan: Mild renal insufficiency likely from dehydration. Will monitor closely. Will provide IV fluids. Will reassess tomorrow. (6) Diarrhea Current Visit: Yes Status: Acute Plan: Will provide IV fluids and Flagyl. Will evaluate for C diff colitis. Likely related to gastroenteritis. Will monitor closely. Will reassess tomorrow. Qualifiers: Diarrhea type: unspecified type Qualified Code(s): R19.7 - Diarrhea, unspecified - Advance Directives Does patient have a Living Will: No Does patient have a Durable POA for Healthcare: No - Code Status/Comfort Care Code Status Assessed: Yes Time Spent Managing Pts Care (In Minutes): 55
[2018-02-25] MEDS ORDERED: ENOXAPARIN 40 MG/0.4 ML SQ SCH (18:00)
[2018-02-25 18:33] VITALS: BMI 33.2
[2018-02-25 19:04] LABS: Urine Blood TRACE (NEG); Urine Glucose NEGATIVE (NEG); Urine Protein NEGATIVE (NEG); Urine Specific Gravity >1.030 (1.005-1.030); Urine pH 5.5 (5.0-7.0)
[2018-02-25] MEDS: NA CHLORIDE 0.9% 1,000 ML IV SCH (20:18)
[2018-02-25] MEDS: METRONIDAZOLE 500mg IVPB 500 MG/100 ML BAG IV SCH (20:18)
[2018-02-25] MEDS: LISINOPRIL 20 MG TAB PO SCH (20:19)
[2018-02-25] MEDS: ACETAMINOPHEN 500 MG TAB PO PRN (20:20)
[2018-02-25] MEDS: PANTOPRAZOLE 40 MG INJ IVP SCH (21:50)
[2018-02-26] MEDS: METRONIDAZOLE 500mg IVPB 500 MG/100 ML BAG IV SCH ×2 (01:27→09:28)
[2018-02-26] MEDS: NA CHLORIDE 0.9% 1,000 ML IV SCH ×2 (04:00→05:50)
[2018-02-26 04:58] LABS: Absolute Lymphocytes (CBC) 2.1 K/uL (0.7-4.9); Absolute Monocytes 0.4 K/uL (0.1-1.3); Absolute Neutrophil 2.6 K/uL (1.8-8.0); Basophils % 0.5 % (0-1.3); Eosinophils % 1.3 % (0-4.4); Hematocrit 36.6 % (36.0-45.0); Lymphocytes % 39.7 % (15.3-44.8); MCH 27.7 pg (27.0-35.0); MCV 84.8 fL (80-100); MPV 8.6 fL (7.6-11.3); Monocytes % 8.2 % (3.3-12.3); RBC Red Blood Cell Count 4.32 M/uL (3.86-4.86)
[2018-02-26 05:55] LABS: Albumin 3.1 g/dL (3.2-5.5); Bilirubin Total 0.2 mg/dL (0.3-1.2); Magnesium 2.2 mg/dL (1.8-2.5); Potassium 4.2 mEq/L (3.6-5.0); Protein, Total 6.3 g/dL (6.0-8.3); Thyroid Stimulating Hormone 0.99 uIU/mL (0.34-5.60)
--- NOTE | 2018-02-26 07:57 | P.DS ---
Admission Date: 02/25/18 Discharge Date: 02/26/18 Primary Care Provider: Dr. Jimenes Disposition: ROUTINE DISCHARGE Discharge Condition: GOOD Reason for Admission: Epigastric abdominal pain, diarrhea Procedures: CT scan: FINDINGS: The lung bases are clear.Small hiatal hernia is present with contrast in the distal esophagus suggesting GERD. The liver demonstrates mild fatty infiltration. A cyst is present in the right lobe measuring 2.6 cm. Cholecystectomy clips are noted. The spleen, pancreas, adrenal glands and kidneys are within normal limits. No bowel obstruction, free air, free fluid or abscess. Scattered colonic diverticulosis without diverticulitis. The appendix is normal. No evidence of significant lymphadenopathy. No suspicious bony findings. IMPRESSION: No acute intra-abdominal or pelvic finding. Gastroesophageal reflux suspected. Mild fatty liver. Colonic diverticulosis without diverticulitis. - Problems (1) Gastroenteritis Current Visit: Yes Status: Acute (2) Epigastric abdominal pain Current Visit: No Status: Acute (3) HTN (hypertension) Onset Date: 09/22/15 Current Visit: No Status: Chronic Qualifiers: Hypertension type: essential hypertension (4) Hiatal hernia with GERD Current Visit: No Status: Chronic (5) Renal insufficiency Onset Date: 09/22/15 Current Visit: No Status: Acute (6) Diarrhea Current Visit: Yes Status: Acute Qualifiers: Diarrhea type: unspecified type Qualified Code(s): R19.7 - Diarrhea, unspecified (7) Fatty liver Current Visit: Yes Status: Chronic (8) Dehydration Current Visit: No Status: Acute (9) Liver cyst Current Visit: No Status: Chronic (10) Obesity Current Visit: No Status: Chronic Qualifiers: Obesity type: due to excess calories Obesity classification: adult class 1 (BMI 30 - 34.9) Serious obesity comorbidity presence: with serious comorbidity Body mass index: BMI 33.0-33.9 Qualified Code(s): E66.09 - Other obesity due to excess calories; Z68.33 - Body mass index (BMI) 33.0-33.9, adult Brief History of Present Illness: 67-year-old female presented emergency room with epigastric pain and diarrhea. The patient reports that she has been having epigastric pain since the Tuesday. Pain has been getting slightly worse. It is associated with diarrhea. She reports that the stooled is green in color. She denied any fever. Patient had nausea today. Pain persisted to the point to where she came to the ER for evaluation. She denied any significant shortness of breath, significant chest pain. Patient with history of hypertension, history of pacemaker, and GERD. In the ER patient was evaluated. White count 6.4, hemoglobin 13.4. Sodium 140 , potassium 4.4, BUN of 19, creatinine 1.16 with a GFR 47. Glucose 114. Initial cardiac enzymes unremarkable. Lipase unremarkable. Chest the normal. CT showed GERD changes, fatty liver, diverticulosis without diverticulitis noted. Chest x-ray unremarkable. Due to the changes the patient was admitted for observation. When I saw the patient ER, she appeared comfortable. Patient still reported some diarrhea. She is without any significant chest pain or shortness of breath. Patient stable. Patient admitted 3 months ago for renal insufficiency. Hospital Course: Patient did well in the course of her stay. Epigastric pain improved. Diarrhea resolved. Patient also presented with mild dehydration with renal insufficiency. This resolved. At discharge she is without any significant pain and tolerates diet. CT scan showed GERD with hiatal hernia. CT also showed fatty liver and right 2.6 cm liver cyst. Patient had not been using Protonix as directed previously. At discharge patient will continue with Protonix 40 mg 1 p.o. once daily. GERD education and diet lifestyle modification will be provided. Patient will need to decrease acidic products like yuko, limes, tomatoes. After eating she is to wait at least 1 hr before going to bed. She may have to elevate the head of the bed at least 30. Recommendation is the patient follow up with GI as an outpatient to further evaluate. Patient will likely need EGD in the near future to further assess. Patient has hypertension. Patient will continue with lisinopril 20 mg 1 pill twice daily. Recommendation is to maintain blood pressures less 150/80. Further adjustment can be done by her PCP. Diarrhea likely related to above. Patient may also have viral gastroenteritis. This appears resolved. Patient encouraged to increase oral intake. Recommendation is to eliminate nonsteroidal anti-inflammatories for pain. Vital Signs/Physical Exam: Temp Pulse Resp BP Pulse Ox 98.2 F 71 18 147/65 H 94 02/26/18 04:00 02/26/18 04:00 02/26/18 04:00 02/26/18 04:00 02/26/18 04:00 General: Alert, In no apparent distress, Oriented x3, Cooperative HEENT: Atraumatic, Normocephalic, Mucous membr. moist/pink Neck: Supple, No Thyromegaly Respiratory: Clear to auscultation bilaterally, Normal air movement Cardiovascular: Normal pulses, Regular rate/rhythm Gastrointestinal: Normal bowel sounds, Soft and benign, Non-distended, No tenderness, No masses, No rebound, No guarding Musculoskeletal: No erythema, No tenderness, No warmth Integumentary: No tenderness/swelling, No erythema, No warmth, No cyanosis Neurological: Normal speech, Normal strength at 5/5 x4 extr, Normal tone, Normal affect Lymphatics: No axilla or inguinal lymphadenopathy Laboratory Data at Discharge: WBC 5.2 K/uL (4.3-10.9) D 02/26/18 04:10 Hgb 12.0 g/dL (12.0-15.0) 02/26/18 04:10 Hct 36.6 % (36.0-45.0) 02/26/18 04:10 Plt Count 188 K/uL (152-406) 02/26/18 04:10 PT 11.8 SECONDS (9.5-12.5) 02/25/18 15:15 INR 1.00 02/25/18 15:15 APTT 29.6 SECONDS (24.3-36.9) 02/25/18 15:15 Sodium 142 mEq/L (135-145) 02/26/18 04:10 Potassium 4.2 mEq/L (3.6-5.0) 02/26/18 04:10 BUN 19 mg/dL (6-20) 02/26/18 04:10 Creatinine 0.93 mg/dL (0.44-1.00) 02/26/18 04:10 Glucose 114 mg/dL (65-120) 02/26/18 04:10 Magnesium 2.2 mg/dL (1.8-2.5) 02/26/18 04:10 Total Bilirubin 0.2 mg/dL (0.3-1.2) L 02/26/18 04:10 AST 18 IU/L (10-42) 02/26/18 04:10 ALT 17 IU/L (10-60) 02/26/18 04:10 Alkaline Phosphatase 60 IU/L (42-121) 02/26/18 04:10 B-Natriuretic Peptide 14 pg/ml (<=100) 02/25/18 15:15 Lipase 26 U/L (22-51) 02/25/18 15:15 Home Medications: Lisinopril [Prinivil*] 20 mg PO BID 09/21/15 Aspirin [Aspirin EC 81 MG] 81 mg PO DAILY #90 tablet. 02/26/18 Pantoprazole [Protonix Tab*] 40 mg PO DAILY #30 tab 02/26/18 New Medications: Aspirin [Aspirin EC 81 MG] 81 mg PO DAILY #90 tablet. Pantoprazole [Protonix Tab*] 40 mg PO DAILY #30 tab Patient Discharge Instructions: 1. Patient will need to follow up with a PCP in 1 week to follow up this hospitalization. 2. Patient presented with epigastric pain. CT scan reveals GERD with hiatal hernia. At discharge she will continue with Protonix 40 mg 1 pill once daily. Recommendation is for the patient to follow up with GI as an outpatient to further evaluate. Patient may require EGD to further assess. Recommendation is to decrease acidic products likes yuko, limes, and tomatoes. She is to elevate the head of the bed at least 30 to prevent reflux. After eating she is to wait at least 1 hr before going to bed. She needs to limit the use of nonsteroidal anti-inflammatories for pain (Aleve, ibuprofen, Motrin). 3. Patient found to have a right liver cyst. This can be followed up as an outpatient with GI. 4. Patient has hypertension. Patient will continue with lisinopril 20 mg 1 pill twice daily. Recommendation is to maintain blood pressures less 150/80. Further adjustment can be done by her PCP. 5. Lifestyle modification education will be provided. Diet: AHA Activity: Ad almas Time spent managing pt's care (in minutes): 55
[2018-02-26 08:56] VITALS: BP 142/68; TEMP 97.5
[2018-02-26] MEDS ORDERED: ASPIRIN EC 81 MG TAB PO SCH (09:00)
--- NOTE | 2018-02-26 09:10 | EKG ---
Test Date: 2018-02-25 Test Time: 15:03:21 [employer]: [employer] MEASUREMENT RESULTS: Intervals: Rate: 70 NM: 238 QRSD: 98 QT: 404 QTc: 436 [place]: P: 33 NM: 238 QRS: 100 T: 45 INTERPRETIVE STATEMENTS: Atrial-sensed ventricular-paced rhythm with prolonged AV conduction Abnormal ECG Compared to ECG 12/06/2017 23:19:20 Atrial-paced complex(es) or rhythm no longer present Right-axis deviation no longer present T-wave abnormality no longer present Electronically Signed On 02-26-18 09:08:36 CDT by Sukhjinder Darnell
[2018-02-26] MEDS: ACETAMINOPHEN 500 MG TAB PO PRN (09:28)
[2018-02-26] MEDS: PANTOPRAZOLE 40 MG INJ IVP SCH (09:28)
[2018-02-26] MEDS: LISINOPRIL 20 MG TAB PO SCH (09:31)
[2018-02-26 11:42] VITALS: O2SAT 95
== END 2018-02-26 11:35 | disposition home or self-care (01) ==
LOC: ER 14:33 → ERHOLD 16:53 → 2ND 18:14
PROVIDERS: ADMIT Family Medicine; ATTEND Family Medicine
DX: K52.9 Noninfective gastroenteritis and colitis, unspecified (principal); I10 Essential (primary) hypertension; K21.9 Gastro-esophageal reflux disease without esophagitis; K44.9 Diaphragmatic hernia without obstruction or gangrene; N28.9 Disorder of kidney and ureter, unspecified; K76.0 Fatty (change of) liver, not elsewhere classified; E86.0 Dehydration; K76.89 Other specified diseases of liver; E66.9 Obesity, unspecified; Z68.33 Body mass index [BMI] 33.0-33.9, adult; Z88.0 Allergy status to penicillin; Z95.0 Presence of cardiac pacemaker; Z88.2 Allergy status to sulfonamides; I25.10 Atherosclerotic heart disease of native coronary artery without angina pectoris
CPT/HCPCS: 36415; 71045; 74177; 80048; 80053; 80076; 81003; 82550; 82553; 83690; 83735; 83880; 84439; 84443; 84484; 85025; 85610; 85730; 87045; 87046; 87086; 87088; 87493; 89055; 93005; 96374; 96375; 99285; C9113; G0378; J1650; J2405; J3010; J7030; Q9967

== ENCOUNTER 2018-06-25 00:16 | Emergency (ER) | payer OTHER ==
[2018-06-25] MEDS ORDERED: NA CHLORIDE 0.9% 500 ML ONE (01:18)
[2018-06-25] MEDS ORDERED: ONDANSETRON 4 MG/2 ML VIAL ONE (01:18)
[2018-06-25] MEDS ORDERED: KETOROLAC 30 MG/ML INJ ONE (01:18)
[2018-06-25 01:43] LABS: Urine Bacteria <20 /HPF (<20); Urine Culture Reflex Order NOT NEEDED; Urine Mucus LIGHT /HPF (NONE SEEN); Urine RBC <5 /HPF (NONE SEEN)
[2018-06-25 01:46] LABS: Absolute Lymphocytes (CBC) 2.1 K/uL (0.7-4.9); Absolute Monocytes 0.6 K/uL (0.1-1.3); Absolute Neutrophil 4.6 K/uL (1.8-8.0); Basophils % 0.4 % (0-1.3); Eosinophils % 0.6 % (0-4.4); Hematocrit 36.8 % (36.0-45.0); Lymphocytes % 28.4 % (15.3-44.8); MCH 28.3 pg (27.0-35.0); MPV 8.1 fL (7.6-11.3); Monocytes % 7.8 % (3.3-12.3); RBC Red Blood Cell Count 4.23 M/uL (3.86-4.86)
[2018-06-25 01:58] LABS: Urine Blood 1+ (NEG); Urine Glucose NEGATIVE (NEG); Urine Protein NEGATIVE (NEG); Urine Specific Gravity >1.030 (1.005-1.030); Urine pH 5.5 (5.0-7.0)
[2018-06-25 02:07] LABS: ALT/SGPT 24 U/L (12-78); AST/SGOT 19 U/L (15-37); Albumin 3.2 g/dL (3.4-5.0); Alkaline Phosphatase 79 U/L (45-117); BUN Blood Urea Nitrogen 19 mg/dL (7-18); Bicarbonate 31 mmol/L (21-32); Bilirubin Direct < 0.1 mg/dL (0-0.2); Bilirubin Total 0.2 mg/dL (0.2-1.0); Glucose Level 117 mg/dL (74-106); Lipase 136 U/L (73-393); Potassium 4.2 mmol/L (3.5-5.1); Protein, Total 7.9 g/dL (6.4-8.2); Sodium Level 144 mmol/L (136-145)
[2018-06-25] MEDS ORDERED: FENTANYL CITR 100 MCG/2 ML ONE (02:48)
--- NOTE | 2018-06-25 05:44 | EDPHYS ---
Physician Documentation [facility] Name: Shelia Valentine Age: 67 yrs Sex: Female : 1950 Arrival Date: 06/25/2018 Time: 00:20 Bed 6 Private MD: ED Physician Reese Love HPI: 06/25 00:50 This 67 yrs old Female presents to ER via EMS with complaints of Flank Pain. cp 00:50 The patient complains of pain in the right flank. The pain radiates to the right mid cp back. Onset: The symptoms/episode began/occurred 5 day(s) ago. Associated signs and symptoms: Pertinent positives: nausea, Pertinent negatives: diarrhea, dizziness, fever, pain radiating to the lower extremities, vomiting. Severity of pain: in the emergency department the pain is unchanged despite home interventions. The patient has been recently seen by a physician: in [facility], with similar presenting complaints, and apparently given a diagnosis of kidney stone. Historical: - Allergies: 00:26 Cipro; ak1 00:26 Codeine; ak1 00:26 Sulfa (Sulfonamide Antibiotics); ak1 00:26 PENICILLINS; ak1 00:26 Morphine; ak1 00:26 HYDROCODONE; ak1 00:26 Demerol; ak1 - Home Meds: 00:26 lisinopril 20 mg Oral tab twice daily [Active]; ak1 - PMHx: 00:26 BRADYCARDIA; Hypertension; GERD; ak1 - PSHx: 00:26 Appendectomy; PACEMAKER; ak1 - Immunization history:: Adult Immunizations unknown. - Social history:: Smoking status: unknown. - Ebola Screening: : No symptoms or risks identified at this time. ROS: 01:00 Constitutional: Negative for body aches, chills, fever, poor PO intake. cp 01:00 Eyes: Negative for injury, pain, redness, and discharge. cp 01:00 ENT: Negative for drainage from ear(s), ear pain, sore throat, difficulty swallowing, difficulty handling secretions. 01:00 Cardiovascular: Negative for chest pain, edema, palpitations. 01:00 Respiratory: Negative for cough, shortness of breath, wheezing. 01:00 Abdomen/GI: Negative for vomiting, diarrhea, constipation, black/tarry stool, rectal bleeding. 01:00 Back: Positive for flank pain, on the right. 01:00 MS/extremity: Negative for injury or acute deformity, decreased range of motion, pain, paresthesias. 01:00 Skin: Negative for cellulitis, rash. 01:00 All other systems are negative. Exam: 01:05 Constitutional: The patient appears in no acute distress, alert, awake, cp non-diaphoretic, non-toxic, well developed, well nourished. 01:05 Head/Face: Normocephalic, atraumatic. Eyes: Pupils equal round and reactive to light, cp extra-ocular motions intact. Lids and lashes normal. Conjunctiva and sclera are non-icteric and not injected. Cornea within normal limits. Periorbital areas with no swelling, redness, or edema. ENT: Nares patent. No nasal discharge, no septal abnormalities noted. Tympanic membranes are normal and external auditory canals are clear. Oropharynx with no redness, swelling, or masses, exudates, or evidence of obstruction, uvula midline. Mucous membranes moist. Chest/axilla: Normal chest wall appearance and motion. Nontender with no deformity. No lesions are appreciated. 01:05 Cardiovascular: Rate: normal, Rhythm: regular. 01:05 Respiratory: the patient does not display signs of respiratory distress, Respirations: normal, no use of accessory muscles, no retractions, no splinting, no tachypnea, labored breathing, is not present, Breath sounds: are clear throughout, no decreased breath sounds, no stridor, no wheezing. 01:05 Abdomen/GI: Inspection: abdomen appears normal, Bowel sounds: active, all quadrants, Palpation: soft, in all quadrants, moderate abdominal tenderness, in the epigastric area, posterior aspect of right lateral abdomen, anterior aspect of right lateral abdomen and right upper quadrant, rebound tenderness, is not appreciated, involuntary guarding, is not appreciated. 01:05 Back: pain, that is moderate, of the right mid back, ROM is normal. 01:05 Skin: cellulitis, is not appreciated, no rash present. Vital Signs: 00:20 BP 164 / 87; Pulse 76; Resp 18; Temp 98.6(O); Pulse Ox 96% on R/A; Weight 83.91 kg (R); ak1 Height 5 ft. 2 in. (157.48 cm) (R); Pain 8/10; 01:49 BP 134 / 72; Pulse 61; Resp 18; Pulse Ox 96% on R/A; ao 00:20 Body Mass Index 33.84 (83.91 kg, 157.48 cm) ak1 MDM: 00:38 Patient medically screened. cp 01:00 Differential diagnosis: nephrolithiasis, pyelonephritis, UTI, pancreatitis. cp 03:31 Data reviewed: vital signs, nurses notes, lab test result(s). Transition of care: After cp a detail discussion of the patient's case, care is transferred to Reese Love MD. 06/25 00:46 Order name: Basic Metabolic Panel; Complete Time: 03:25 cp 06/25 03:30 Interpretation: Normal except: GLUC 117; BUN 19; GFR 55. cp 06/25 00:46 Order name: CBC with Diff; Complete Time: 02:00 cp 06/25 03:30 Interpretation: Reviewed. cp 06/25 00:46 Order name: Creatinine for Radiology; Complete Time: 03:25 cp 06/25 00:46 Order name: Hepatic Function; Complete Time: 03:25 cp 06/25 03:30 Interpretation: Normal except: ALB 3.2; GLOB 4.7; A/G 0.7. cp 06/25 00:46 Order name: Lipase; Complete Time: 03:25 cp 06/25 03:31 Interpretation: LIP 136; Reviewed. cp 06/25 00:46 Order name: Urine Microscopic Only; Complete Time: 02:00 cp 06/25 03:31 Interpretation: Reviewed. cp 06/25 00:46 Order name: IV Saline Lock; Complete Time: 01:38 cp 06/25 00:46 Order name: Labs collected and sent; Complete Time: 01:38 cp 06/25 01:23 Order name: Urine Dipstick--Ancillary (enter results); Complete Time: 02:00 cc 06/25 03:30 Interpretation: Normal except: USPGR >1.030; UBLD 1+. cp 06/25 02:00 Order name: CT Stone Protocol cp 06/25 00:46 Order name: Urine Dipstick-Ancillary (obtain specimen); Complete Time: 01:21 cp Administered Medications: 01:35 Drug: TORadol 30 mg Route: IVP; Site: right antecubital; ao 02:48 Follow up: Response: No adverse reaction ak1 01:38 Drug: NS 0.9% 500 ml Route: IV; Rate: bolus; Site: right antecubital; ao 06:03 Follow up: IV Status: Completed infusion ak1 01:38 Drug: Zofran 4 mg Route: IVP; Site: right antecubital; ao 02:48 Follow up: Response: No adverse reaction ak1 02:50 Drug: fentaNYL (PF) 25 mcg Route: IVP; Site: right antecubital; ao 06:03 Follow up: Response: No adverse reaction ak1 Disposition: 05:41 Co-signature as Attending Physician, Reese Love MD. pkl Disposition: 06/25/18 05:43 Discharged to Home. Impression: Right renal colic. - Condition is Stable. - Prescriptions for Ultram 50 mg Oral Tablet - take 1 tablet by ORAL route every 8 hours As needed; 20 tablet. - Medication Reconciliation Form, Thank You Letter, Antibiotic Education, Prescription Opioid Use form. - Follow up: Aleksandar Ybarra MD; When: 2 - 3 days; Reason: Re-evaluation by your physician. - Problem is new. - Symptoms have improved. Signatures: Dispatcher [employer] EDMS Reese Love MD MD pkl Josefina Joaquin RN RN ak1 Miguel Delacruz PA PA cp Ortiz, Alex, RN RN ao Corrections: (The following items were deleted from the chart) 06:17 05:43 06/25/2018 05:43 Discharged to Home. Impression: Right renal colic. Condition is ak1 Stable. Forms are Medication Reconciliation Form, Thank You Letter, Antibiotic Education, Prescription Opioid Use. Follow up: Aleksandar Ybarra; When: 2 - 3 days; Reason: Re-evaluation by your physician. Problem is new. Symptoms have improved. pkl
--- NOTE | 2018-06-25 05:44 | ER ---
Nurse's Notes [facility] Name: Shelia Valentine Age: 67 yrs Sex: Female : 1950 Arrival Date: 06/25/2018 Time: 00:20 Bed 6 Private MD: Diagnosis: Right renal colic Presentation: 06/25 00:21 Presenting complaint: EMS states: right flank pain, nausea. pt seen at [facility] dx kidney ak1 stone 2 days [employer]. pt stated they did not give her any prescriptions to have filled and the pain increased tonight. Transition of care: patient was not received from another setting of care. Onset of symptoms is unknown. Risk Assessment: Do you want to hurt yourself or someone else? Patient reports no desire to harm self or others. Initial Sepsis Screen: Does the patient meet any 2 criteria? No. Patient's initial sepsis screen is negative. Does the patient have a suspected source of infection? No. Patient's initial sepsis screen is negative. Care prior to arrival: None. 00:21 Method Of Arrival: EMS: [facility] ak 00:21 Acuity: ADDI 3 ak1 Triage Assessment: 00:26 General: Appears in no apparent distress. Behavior is calm, cooperative. Pain: ak1 Complains of pain in right flank. EENT: No signs and/or symptoms were reported regarding the EENT system. Neuro: No deficits noted. Cardiovascular: No deficits noted. Respiratory: No deficits noted. GI: Reports nausea. : Reports pain in right flank(s), pt stated she was seen at [facility] 2 days [employer] dx kidney stone. Derm: No signs and/or symptoms reported regarding the dermatologic system. Musculoskeletal: No signs and/or symptoms reported regarding the musculoskeletal system. Historical: - Allergies: 00:26 Cipro; ak1 00:26 Codeine; ak1 00:26 Sulfa (Sulfonamide Antibiotics); ak1 00:26 PENICILLINS; ak1 00:26 Morphine; ak1 00:26 HYDROCODONE; ak1 00:26 Demerol; ak1 - Home Meds: 00:26 lisinopril 20 mg Oral tab twice daily [Active]; ak1 - PMHx: 00:26 BRADYCARDIA; Hypertension; GERD; ak1 - PSHx: 00:26 Appendectomy; PACEMAKER; ak1 - Immunization history:: Adult Immunizations unknown. - Social history:: Smoking status: unknown. - Ebola Screening: : No symptoms or risks identified at this time. Screenin:31 Abuse screen: Denies threats or abuse. Denies injuries from another. Nutritional ak1 screening: No deficits noted. Tuberculosis screening: No symptoms or risk factors identified. Fall Risk None identified. Assessment: 00:32 Reassessment: Patient appears in no apparent distress at this time. No changes from ak1 previously documented assessment. see triage assessment. 01:49 Reassessment: Patient appears in no apparent distress at this time. Patient and/or ao family updated on plan of care and expected duration. Pain level reassessed. Patient is alert, oriented x 3, equal unlabored respirations, skin warm/dry/pink. Patient states feeling better. 02:47 Reassessment: Received a verbal order for fentanyl 25 IVP. ao 06:03 Reassessment: pt resting comfortable. resp even unlabored. ak1 Vital Signs: 00:20 BP 164 / 87; Pulse 76; Resp 18; Temp 98.6(O); Pulse Ox 96% on R/A; Weight 83.91 kg (R); ak1 Height 5 ft. 2 in. (157.48 cm) (R); Pain 8/10; 01:49 BP 134 / 72; Pulse 61; Resp 18; Pulse Ox 96% on R/A; ao 00:20 Body Mass Index 33.84 (83.91 kg, 157.48 cm) ak1 ED Course: 00:20 Patient arrived in ED. ak1 00:20 Arm band placed on Patient placed in an exam room, on a stretcher, on pulse oximetry, ak1 Patient notified of wait time. 00:22 Triage completed. ak1 00:31 Patient has correct armband on for positive identification. Placed in gown. Bed in low ak1 position. Call light in reach. Side rails up X2. Pulse ox on. NIBP on. 00:37 Miguel Delacruz PA is PHCP. cp 00:37 Reese Love MD is Attending Physician. cp 01:03 Josefina Joaquin, RN is Primary Nurse. ak1 01:39 Inserted saline lock: 20 gauge in right antecubital area, using aseptic technique. ao ,using aseptic technique. Ultrasound guided IV Blood collected. 03:[address] via stretcher. kw1 04:03 CT Stone Protocol In Process Unspecified. EDMS 04:04 CT completed. Patient tolerated procedure well. Patient moved back from CT. kw1 05:42 Aleksandar Ybarra MD is Referral Physician. pkl 06:04 No provider procedures requiring assistance completed. IV discontinued, intact, ak1 bleeding controlled, No redness/swelling at site. Pressure dressing applied. Administered Medications: 01:35 Drug: TORadol 30 mg Route: IVP; Site: right antecubital; ao 02:48 Follow up: Response: No adverse reaction ak1 01:38 Drug: NS 0.9% 500 ml Route: IV; Rate: bolus; Site: right antecubital; ao 06:03 Follow up: IV Status: Completed infusion ak1 01:38 Drug: Zofran 4 mg Route: IVP; Site: right antecubital; ao 02:48 Follow up: Response: No adverse reaction ak1 02:50 Drug: fentaNYL (PF) 25 mcg Route: IVP; Site: right antecubital; ao 06:03 Follow up: Response: No adverse reaction ak1 Outcome: 05:43 Discharge ordered by . pkl 06:04 Condition: improved ak1 06:04 Discharge instructions given to patient, Instructed on discharge instructions, follow up and referral plans. no drinking with medication, no driving heavy equipment, medication usage, Demonstrated understanding of instructions, follow-up care, medications, Prescriptions given X 1. 06:08 Discharged to home ambulatory, with family. ak1 06:17 Patient left the ED. ak1 Signatures: Dispatcher [employer] EDMS Reese Love MD MD pkJosefina Sapp RN RN ak1 Miguel Delacruz PA PA cp Ortiz, Alex, RN RN Cele Collins kw1
[2018-06-25 06:33] VITALS: BP 134/72; O2SAT 96
[2018-06-25 06:35] VITALS: TEMP 98.6
--- NOTE | 2018-06-25 11:31 | RAD REPORT ---
EXAM DESCRIPTION: CT - Stone Protocol - 06/25/2018 6:50 am CLINICAL HISTORY: Flank pain. FLANK PAIN COMPARISON: Abdomen Pelvis W Contrast dated 02/25/2018; Abdomen Pelvis Wo Contrast dated 12/06/2017 TECHNIQUE: Axial images were obtained without oral or IV contrast. Lack of contrast limits solid org an and vascular assessment. The [id number] spans the entirety of the system partially obscuring uppermost abdomen and lung bases. Coronal reformatted images were obtained and reviewed. All CT scans are performed using dose optimization technique as appropriate and may include automated exposure control or mA/KV adjustment according to patient size. FINDINGS: The lower lung lezama are clear. Small hiatal hernia. Imaged portions of the liver and spleen show no suspicious findings on non-contrast imaging.Cholecyst ectomy clips. The pancreas and adrenal glands are normal. No pathologic lymphadenopathy in the abdome n or pelvis. Small bilateral nonobstructing renal calculi. No hydronephrosis. No bowel obstruction, free air, free fluid or abscess. Normal appendix noted.Small containing umbilic al hernia. Moderate lumbosacral degenerative changes. IMPRESSION: Small bilateral renal calculi without hydronephrosis.
== END 2018-06-25 06:17 | disposition home or self-care (01) ==
LOC: ER 00:16
DX: N23 Unspecified renal colic (principal); I10 Essential (primary) hypertension; Z95.0 Presence of cardiac pacemaker; Z88.0 Allergy status to penicillin; Z88.1 Allergy status to other antibiotic agents; Z88.2 Allergy status to sulfonamides; Z88.5 Allergy status to narcotic agent; Z88.8 Allergy status to other drugs, medicaments and biological substances
CPT/HCPCS: 36415; 74176; 76377; 80048; 80076; 83690; 85025; 96361; 96374; 96375; 99284; J2405; J3010; 81003; 81015

== ENCOUNTER 2018-09-04 23:47 | Emergency (ER) | payer OTHER ==
[2018-09-05] MEDS ORDERED: ONDANSETRON 4 MG/2 ML VIAL ONE (00:01)
[2018-09-05] MEDS ORDERED: MAGNE/ALUM HYDROXD 30 ML UCUP ONE (00:01)
[2018-09-05] MEDS ORDERED: LIDOCAINE VISCOUS 2% SOLN 15 ML UDC ONE (00:01)
[2018-09-05] MEDS ORDERED: NA CHLORIDE 0.9% 1,000 ML ONE (00:17)
[2018-09-05 00:25] LABS: Absolute Lymphocytes (CBC) 2.5 K/uL (0.7-4.9); Absolute Monocytes 0.5 K/uL (0.1-1.3); Absolute Neutrophil 3.8 K/uL (1.8-8.0); Basophils % 0.4 % (0-1.3); Eosinophils % 0.8 % (0-4.4); Hematocrit 40.2 % (36.0-45.0); Lymphocytes % 36.9 % (15.3-44.8); MCH 28.4 pg (27.0-35.0); MCV 85.9 fL (80-100); MPV 8.8 fL (7.6-11.3); Monocytes % 7.2 % (3.3-12.3); RBC Red Blood Cell Count 4.68 M/uL (3.86-4.86)
[2018-09-05 00:39] LABS: ALT/SGPT 23 U/L (12-78); AST/SGOT 19 U/L (15-37); Albumin 3.2 g/dL (3.4-5.0); Alkaline Phosphatase 78 U/L (45-117); BUN Blood Urea Nitrogen 20 mg/dL (7-18); Bicarbonate 28 mmol/L (21-32); Bilirubin Direct < 0.1 mg/dL (0-0.2); Bilirubin Total 0.2 mg/dL (0.2-1.0); Glucose Level 120 mg/dL (74-106); Lipase 115 U/L (73-393); Potassium 3.8 mmol/L (3.5-5.1); Protein, Total 7.9 g/dL (6.4-8.2); Sodium Level 145 mmol/L (136-145); Troponin (Emerg Dept Use Only) < 0.02 ng/mL (0.0-0.045)
[2018-09-05] MEDS ORDERED: PROMETHAZINE 25 MG/ML VIAL ONE ×2 (00:44→01:03)
[2018-09-05 01:26] LABS: Urine Blood TRACE (NEG); Urine Glucose NEGATIVE (NEG); Urine Protein NEGATIVE (NEG); Urine Specific Gravity 1.025 (1.005-1.030); Urine pH 5.5 (5.0-7.0)
--- NOTE | 2018-09-05 04:13 | EDPHYS ---
Physician Documentation [facility] Name: Shelia Valentine Age: 67 yrs Sex: Female : 1950 Arrival Date: 09/04/2018 Time: 23:49 Bed 5 Private MD: ED Physician Ru Ely HPI: 09/05 00:11 This 67 yrs old Female presents to ER via EMS with complaints of rn Nausea/Vomiting. 00:11 The patient presents to the emergency department with nausea, vomiting. Onset: The rn symptoms/episode began/occurred today. Possible causes: unknown. The symptoms are aggravated by nothing. The symptoms are alleviated by nothing. Severity of symptoms: At their worst the symptoms were mild in the emergency department the symptoms are unchanged. The patient has experienced similar episodes in the past. Reports began today with upper abd pain, assoc with nausea/vomiting, feels "acid in chest", no diarrhea. . Historical: - Allergies: 09/04 23:58 Cipro; bb 23:58 Codeine; bb 23:58 Demerol; bb 23:58 HYDROCODONE; bb 23:58 Morphine; bb 23:58 PENICILLINS; bb 23:58 Sulfa (Sulfonamide Antibiotics); bb - Home Meds: 23:58 lisinopril 20 mg Oral tab twice daily [Active]; bb - PMHx: 23:58 BRADYCARDIA; GERD; Hypertension; bb - PSHx: 23:58 Appendectomy; PACEMAKER; bb - Immunization history:: Adult Immunizations up to date. - Social history:: Smoking status: Patient/guardian denies using tobacco, Patient/guardian denies using alcohol, street drugs. - Ebola Screening: : No symptoms or risks identified at this time. - Family history:: not pertinent. - Hospitalizations: : No recent hospitalization is reported. ROS: 09/05 00:11 Constitutional: Negative for fever, chills, and weight loss, Eyes: Negative for injury, rn pain, redness, and discharge, Neck: Negative for injury, pain, and swelling, Cardiovascular: Negative for chest pain, palpitations, and edema, Respiratory: + cough Abdomen/GI: Negative for diarrhea, and constipation, MS/Extremity: Negative for injury and deformity, Skin: Negative for injury, rash, and discoloration, Neuro: + generalized weakness Exam: 00:11 Constitutional: This is a well developed, well nourished patient who is awake, alert, rn and in no acute distress. Head/Face: Normocephalic, atraumatic. Eyes: Pupils equal round and reactive to light, extra-ocular motions intact. Lids and lashes normal. Conjunctiva and sclera are non-icteric and not injected. Cornea within normal limits. Periorbital areas with no swelling, redness, or edema. ENT: MMM Neck: Trachea midline, no thyromegaly or masses palpated, and no cervical lymphadenopathy. Supple, full range of motion without nuchal rigidity, or vertebral point tenderness. No Meningismus. Cardiovascular: normal rate and rhythm, no murmur, No pulse deficits. Respiratory: Lungs have equal breath sounds bilaterally, clear to auscultation and percussion. No rales, rhonchi or wheezes noted. No increased work of breathing, no retractions or nasal flaring. Abdomen/GI: soft, mild epigastric tenderness, no rebound MS/ Extremity: Pulses equal, no cyanosis. Neurovascular intact. Full, normal range of motion. Equal circumference. Neuro: Awake and alert, GCS 15, oriented to person, place, time, and situation. Cranial nerves II-XII grossly intact. Motor strength 5/5 in all extremities. Sensory grossly intact. Cerebellar exam normal. Vital Signs: 09/04 23:58 BP 174 / 85; Pulse 76; Resp 18 S; Temp 98.5(O); Pulse Ox 96% on R/A; Weight 77.11 kg bb (R); Height 5 ft. 0 in. (152.40 cm) (R); Pain 7/10; 09/05 00:53 BP 211 / 92; Pulse 95; Resp 18; Pulse Ox 99% on R/A; mw2 02:13 BP 190 / 96; Pulse 88; Resp 18 S; Pulse Ox 96% on R/A; bb 03:34 BP 158 / 85; Pulse 73; Resp 16; Pulse Ox 96% on R/A; ak1 04:28 BP 123 / 95; Pulse 72; Resp 16 S; Temp 98(O); Pulse Ox 95% on R/A; bb 05:38 BP 157 / 56; Pulse 64; Resp 16 S; Pulse Ox 93% on R/A; bb 09/04 23:58 Body Mass Index 33.20 (77.11 kg, 152.40 cm) bb MDM: 09/04 23:51 Patient medically screened. rn 09/05 04:09 Differential diagnosis: gastritis, viral gastroenteritis, gastroenteritis. Data rn reviewed: vital signs, nurses notes, lab test result(s), EKG, radiologic studies, CT scan, and as a result, I will discharge patient. Counseling: I had a detailed discussion with the patient and/or guardian regarding: the historical points, exam findings, and any diagnostic results supporting the discharge/admit diagnosis, lab results, radiology results, the need for outpatient follow up, to return to the emergency department if symptoms worsen or persist or if there are any questions or concerns that arise at home. Response to treatment: the patient's symptoms have markedly improved after treatment, and as a result, I will discharge patient. ED course: Sleeping comfortably, no longer vomiting, CT neg for acute findings other than gastritis, improved with GI cocktail and nausea meds, will dc home with antacids and prn zofran.. 04:09 ED course: Had negative stress and normal ECHO last admission recently for chest pain.. rn 09/04 23:52 Order name: Basic Metabolic Panel; Complete Time: 00:55 rn 09/04 23:52 Order name: CBC with Diff; Complete Time: 00:55 rn 09/04 23:52 Order name: Hepatic Function; Complete Time: 00:55 rn 09/04 23:52 Order name: Lipase; Complete Time: 00:55 rn 09/04 23:52 Order name: Troponin (emerg Dept Use Only); Complete Time: 00:55 rn 09/05 00:26 Order name: Urine Dipstick--Ancillary (enter results); Complete Time: 01:32 gm 09/04 23:52 Order name: CT Abd/Pelvis - W/Contrast rn 09/04 23:52 Order name: EKG; Complete Time: 23:52 rn 09/04 23:52 Order name: XRAY Chest (1 view) rn 09/04 23:52 Order name: IV Saline Lock; Complete Time: 00:02 rn 09/04 23:52 Order name: Labs collected and sent; Complete Time: 00:02 rn 09/04 23:52 Order name: EKG - Nurse/Tech; Complete Time: 00:01 rn Administered Medications: 09/04 23:50 Drug: GI Cocktail without - (Maalox Suspension 30 ml, Lidocaine Liquid 2 % 15 ak1 ml) Route: PO; 09/05 00:44 Follow up: Response: No adverse reaction ak1 09/04 23:50 Drug: Zofran 4 mg Route: IVP; Site: right wrist; ak1 09/05 00:44 Follow up: Response: No adverse reaction; Nausea unchanged ak1 00:30 Drug: NS 0.9% 500 ml Route: IV; Rate: bolus; Site: right wrist; ak1 01:01 Follow up: IV Status: Completed infusion ak1 00:43 Drug: Phenergan 12.5 mg Route: IVP; Site: right wrist; ak1 00:59 Follow up: Response: No change in condition bb 00:59 Drug: Phenergan 12.5 mg Route: IVP; Site: right wrist; bb 02:12 Follow up: Response: No change in condition bb Disposition: 09/05/18 04:12 Discharged to Home. Impression: Gastritis, unspecified, without bleeding. - Condition is Stable. - Discharge Instructions: Gastritis, Adult. - Prescriptions for Zofran ODT 4 mg Oral tablet,disintegrating - place 1 tablet by TRANSLINGUAL route every 8 hours As needed; 20 tablet. Nexium 20 mg Oral Capsule - take 1 capsule by ORAL route once daily; 20 capsule. - Medication Reconciliation Form, Thank You Letter, Antibiotic Education, Prescription Opioid Use form. - Follow up: Jung Bey MD; When: As needed; Reason: Recheck today's complaints, Re-evaluation by your physician. - Problem is new. - Symptoms have improved. Signatures: Dispatcher [employer] EDCharissa Henson RN RN Ru Martínez MD MD rn Krenek, Amber, RN RN ak1 Corrections: (The following items were deleted from the chart) 05:39 04:12 09/05/2018 04:12 Discharged to Home. Impression: Gastritis, unspecified, without bb bleeding. Condition is Stable. Forms are Medication Reconciliation Form, Thank You Letter, Antibiotic Education, Prescription Opioid Use. Follow up: Jung Bey; When: As needed; Reason: Recheck today's complaints, Re-evaluation by your physician. Problem is new. Symptoms have improved. rn
--- NOTE | 2018-09-05 04:13 | ER ---
Nurse's Notes [facility] Name: Shelia Valentine Age: 67 yrs Sex: Female : 1950 Arrival Date: 09/04/2018 Time: 23:49 Bed 5 Private MD: Diagnosis: Gastritis, unspecified, without bleeding Presentation: 09/04 23:54 Presenting complaint: EMS states: they were toned out for pt c/o abdominal pain, bb vomiting, nausea and chest pain. Transition of care: patient was not received from another setting of care. Onset of symptoms was September 03, 2018. Risk Assessment: Do you want to hurt yourself or someone else? Patient reports no desire to harm self or others. Initial Sepsis Screen: Does the patient meet any 2 criteria? No. Patient's initial sepsis screen is negative. Does the patient have a suspected source of infection? No. Patient's initial sepsis screen is negative. Care prior to arrival: None. 23:54 Method Of Arrival: EMS: [facility] 23:54 Acuity: ADDI 3 bb Triage Assessment: 23:58 General: Appears in no apparent distress. uncomfortable, obese, Behavior is calm, bb cooperative. Pain: Complains of pain in chest and abdomen Pain does not radiate. Pain currently is 7 out of 10 on a pain scale. Neuro: Level of Consciousness is awake, alert, obeys commands, Oriented to person, place, time, situation. Cardiovascular: Reports chest pain, Heart tones S1 S2 present Capillary refill < 3 seconds Patient's skin is warm and dry. Pulses are all present. Respiratory: Respiratory effort is even, unlabored, Respiratory pattern is regular, Breath sounds are clear bilaterally. GI: Abdomen is non-distended, Abdomen is tender to palpation X 4 quads. Reports upper abdominal pain, vomiting. Derm: Skin is pink, warm \T\ dry. Musculoskeletal: Circulation, motion, and sensation intact. Historical: - Allergies: 23:58 Cipro; bb 23:58 Codeine; bb 23:58 Demerol; bb 23:58 HYDROCODONE; bb 23:58 Morphine; bb 23:58 PENICILLINS; bb 23:58 Sulfa (Sulfonamide Antibiotics); bb - Home Meds: 23:58 lisinopril 20 mg Oral tab twice daily [Active]; bb - PMHx: 23:58 BRADYCARDIA; GERD; Hypertension; bb - PSHx: 23:58 Appendectomy; PACEMAKER; bb - Immunization history:: Adult Immunizations up to date. - Social history:: Smoking status: Patient/guardian denies using tobacco, Patient/guardian denies using alcohol, street drugs. - Ebola Screening: : No symptoms or risks identified at this time. - Family history:: not pertinent. - Hospitalizations: : No recent hospitalization is reported. Screenin/18 00:02 Abuse screen: Denies threats or abuse. Nutritional screening: No deficits noted. bb Tuberculosis screening: No symptoms or risk factors identified. Fall Risk None identified. Assessment: 00:02 Reassessment: No changes from previously documented assessment. see triage assessment. bb 00:24 Reassessment: pt ambulated to restroom with steady gait. ak1 00:25 GI: pt vomited X1 after GI cocktail, Dr. Ely notified with new orders given. pt ak1 attempting to finish oral contrast. will continue to monitor. 00:59 Reassessment: pt A\T\O x 3, resp unlabored, actively vomiting Dr Ely notified new bb orders received pt medicated see NOV. 01:17 Reassessment: CT contacted and informed of IV contrast only per Dr. Ely, pt unable to ak1 drink oral contrast. . 01:38 Reassessment: pt to CT scan via stretcher with wafer fab technician. bb 02:12 Reassessment: Patient and/or family updated on plan of care and expected duration. Pain bb level reassessed. Patient is alert, oriented x 3, equal unlabored respirations, skin warm/dry/pink. pt vomited again and was incontinent, pt cleaned and gown and linens changed. 03:51 Reassessment: pt appears to be sleeping, eyes closed, resp unlabored awaiting bb disposition by ED provider. 04:27 Reassessment: Patient and/or family updated on plan of care and expected duration. Pain bb level reassessed. Patient is alert, oriented x 3, equal unlabored respirations, skin warm/dry/pink. pt verbalized understanding of and agrees to plan of care discharge instructions given pt states she is taking the bus home so will continue to monitor her until 0545. 05:37 Reassessment: pt sleeping arouses easily verbalized understanding of and agrees to plan bb of care repeated discharge instructions pt ambulated with steady gait to the exit. Vital Signs: 09/04 23:58 BP 174 / 85; Pulse 76; Resp 18 S; Temp 98.5(O); Pulse Ox 96% on R/A; Weight 77.11 kg bb (R); Height 5 ft. 0 in. (152.40 cm) (R); Pain 7/10; 09/05 00:53 BP 211 / 92; Pulse 95; Resp 18; Pulse Ox 99% on R/A; mw2 02:13 BP 190 / 96; Pulse 88; Resp 18 S; Pulse Ox 96% on R/A; bb 03:34 BP 158 / 85; Pulse 73; Resp 16; Pulse Ox 96% on R/A; ak1 04:28 BP 123 / 95; Pulse 72; Resp 16 S; Temp 98(O); Pulse Ox 95% on R/A; bb 05:38 BP 157 / 56; Pulse 64; Resp 16 S; Pulse Ox 93% on R/A; bb 09/04 23:58 Body Mass Index 33.20 (77.11 kg, 152.40 cm) bb ED Course: 09/04 23:49 Patient arrived in ED. ds1 23:51 Ru Ely MD is Attending Physician. rn 23:56 Triage completed. bb 23:56 Josefina Joaquin, RN is Primary Nurse. ak1 23:58 Arm band placed on Patient placed in an exam room, on a stretcher, on fruit thinner machine operator, bb on pulse oximetry. EKG completed in triage. Results shown to MD. Antipyretics given from triage as ordered by an ER provider. Antipyretics given from triage as ordered by an ER provider. 09/05 00:02 Patient has correct armband on for positive identification. Placed in gown. Bed in low bb position. Call light in reach. Side rails up X2. exploration manager on. Pulse ox on. NIBP on. Warm blanket given. 00:02 Initial lab(s) drawn, by ED staff, sent to lab. Inserted saline lock: 22 gauge in right bb wrist, using aseptic technique. ,using aseptic technique. by [facility] tech Blood collected. 00:15 X-ray completed. Portable x-ray completed in exam room. Patient tolerated procedure sg4 well. 00:19 XRAY Chest (1 view) In Process Unspecified. EDMS 01:33 CT completed. Patient tolerated procedure well. Patient moved to CT via stretcher. Patient moved back from CT. 01:40 CT Abd/Pelvis - W/Contrast In Process Unspecified. EDMS 04:12 Jugn Bey MD is Referral Physician. rn 04:30 No provider procedures requiring assistance completed. bb 05:37 IV discontinued, intact, bleeding controlled, No redness/swelling at site. Pressure bb dressing applied. Administered Medications: 09/04 23:50 Drug: GI Cocktail without - (Maalox Suspension 30 ml, Lidocaine Liquid 2 % 15 ak1 ml) Route: PO; 09/05 00:44 Follow up: Response: No adverse reaction ak1 09/04 23:50 Drug: Zofran 4 mg Route: IVP; Site: right wrist; ak1 09/05 00:44 Follow up: Response: No adverse reaction; Nausea unchanged ak1 00:30 Drug: NS 0.9% 500 ml Route: IV; Rate: bolus; Site: right wrist; ak1 01:01 Follow up: IV Status: Completed infusion ak1 00:43 Drug: Phenergan 12.5 mg Route: IVP; Site: right wrist; ak1 00:59 Follow up: Response: No change in condition bb 00:59 Drug: Phenergan 12.5 mg Route: IVP; Site: right wrist; bb 02:12 Follow up: Response: No change in condition bb Outcome: 04:12 Discharge ordered by MD. rn 04:30 Discharged to home will continue to monitor in ED until 0545 for the bus bb 04:30 Condition: stable 04:30 Discharge instructions given to patient, Instructed on discharge instructions, follow up and referral plans. medication usage, Demonstrated understanding of instructions, follow-up care, medications, Prescriptions given X 2. 05:39 Patient left the ED. bb Signatures: Dispatcher [employer] Meenu Mazariegos Demi dsCharissa Bowles RN RN bb Ru Ely MD MD rn Krenek, Amber, RN RN ak1 Abimbola Queen2 Gela Anthony sg4
[2018-09-05 05:57] VITALS: TEMP 98
[2018-09-05 06:19] VITALS: BP 98/61; O2SAT 97
--- NOTE | 2018-09-05 08:18 | RAD REPORT ---
EXAM DESCRIPTION: RAD - Chest Single View - 09/05/2018 12:19 am CLINICAL HISTORY: COUGH Chest pain. COMPARISON: Chest Single View dated 02/25/2018; Chest Single View dated 12/06/2017; Chest Single View d ated 07/17/2017; Chest Single View dated 10/30/2016 FINDINGS: Portable technique limits examination quality. The lungs are grossly clear. The heart is upper limit of normal in size. No displaced fractures.Dual lead pacer device present. IMPRESSION: No acute intrathoracic process suspected.
--- NOTE | 2018-09-05 08:46 | RAD REPORT ---
EXAM DESCRIPTION: CTAbdomen Pelvis W Contrast - 09/05/2018 4:24 am CLINICAL HISTORY: Abdominal pain. Abd pain;Nausea / vomiting COMPARISON: Abdomen Pelvis W Contrast dated 02/25/2018; Abdomen Pelvis W Contrast dated 09/13/2016 ; CT ABD PELVIS W CONTRAST dated 05/19/2015; CT ABD PELVIS W CONTRAST dated 12/25/2013; Stone Protocol d ated 06/25/2018 TECHNIQUE: Biphasic CT imaging of the abdomen and pelvis was performed with 100 ml non-ionic IV cont rast. All CT scans are performed using dose optimization technique as appropriate and may include automated exposure control or mA/KV adjustment according to patient size. FINDINGS: Gastroesophageal reflux is seen into the distal esophagus.The inferior lung bases are sia r. Diffuse fatty liver is present. A cyst is present measuring 2.6 cm in posterior right lobe liver. Cho lecystectomy clips are noted. The spleen pancreas and right adrenal gland are normal. Left adrenal gl and contains a 10 mm low-density nodule, likely an adenoma. No renal mass or hydronephrosis. Small be nign left renal cyst. Punctate right nephrolithiasis. No bowel obstruction, free air, free fluid or abscess. The appendix is normal. No evidence of signi ficant lymphadenopathy. No suspicious bony findings. IMPRESSION: No acute intra-abdominal or pelvic finding.
--- NOTE | 2018-09-05 11:07 | EKG ---
Test Date: 2018-09-04 Test Time: 23:52:55 Sweatband Drummer: BRET MEASUREMENT RESULTS: Intervals: Rate: 74 MI: 214 QRSD: 152 QT: 446 QTc: 495 [place]: P: 46 MI: 214 QRS: 45 T: 159 INTERPRETIVE STATEMENTS: Electronic ventricular pacemaker Compared to ECG 02/25/2018 15:03:21 Atrial-sensed ventricular-paced complex(es) or rhythm no longer present Electronically Signed On 09-05-18 11:05:53 SVP by Sukhjinder Darnell
== END 2018-09-05 05:39 | disposition home or self-care (01) ==
LOC: ER 23:47
DX: K29.70 Gastritis, unspecified, without bleeding (principal); I10 Essential (primary) hypertension; Z95.0 Presence of cardiac pacemaker; Z88.0 Allergy status to penicillin; Z88.1 Allergy status to other antibiotic agents; Z88.2 Allergy status to sulfonamides; Z88.5 Allergy status to narcotic agent
CPT/HCPCS: 36415; 71045; 74177; 80048; 80076; 81003; 83690; 84484; 85025; 93005; 96361; 96374; 96375; 99285; J2405; J2550 ×2; J7030; Q9967

== ENCOUNTER 2018-12-03 23:37 | Emergency (ER) | payer OTHER ==
[2018-12-04 01:29] LABS: Urine Culture Reflex Order NOT NEEDED
[2018-12-04 01:30] LABS: Urine Bacteria <20 /HPF (<20); Urine Mucus 1+ /HPF (NONE SEEN); Urine RBC <5 /HPF (NONE SEEN)
[2018-12-04 01:31] LABS: Urine Blood 2+ (NEG); Urine Glucose NEGATIVE (NEG); Urine Protein 1+ (NEG); Urine Specific Gravity 1.015 (1.005-1.030)
[2018-12-04] MEDS ORDERED: NA CHLORIDE 0.9% 1,000 ML ONE (01:37)
[2018-12-04] MEDS ORDERED: ACETAMINOPHEN 500 MG TAB ONE (02:03)
[2018-12-04 02:25] LABS: ALT/SGPT 24 U/L (12-78); AST/SGOT 22 U/L (15-37); Albumin 3.1 g/dL (3.4-5.0); Alkaline Phosphatase 77 U/L (45-117); BUN Blood Urea Nitrogen 17 mg/dL (7-18); Bicarbonate 26 mmol/L (21-32); Bilirubin Direct < 0.1 mg/dL (0-0.2); Bilirubin Total 0.4 mg/dL (0.2-1.0); Glucose Level 137 mg/dL (74-106); Lipase 59 U/L (73-393); Protein, Total 8.1 g/dL (6.4-8.2); Sodium Level 142 mmol/L (136-145)
[2018-12-04 02:35] LABS: Absolute Lymphocytes (CBC) 1.4 K/uL (0.7-4.9); Absolute Monocytes 0.7 K/uL (0.1-1.3); Basophils % 0.2 % (0-1.3); Eosinophils % 0.2 % (0-4.4); Hematocrit 41.2 % (36.0-45.0); Lymphocytes % 19.8 % (15.3-44.8); MPV 8.6 fL (7.6-11.3); Monocytes % 10.5 % (3.3-12.3); RBC Red Blood Cell Count 4.82 M/uL (3.86-4.86)
[2018-12-04] MEDS ORDERED: ONDANSETRON 4 MG/2 ML VIAL ONE (02:39)
--- NOTE | 2018-12-04 03:45 | EDPHYS ---
Physician Documentation [facility] Name: Shelia Valentine Age: 68 yrs Sex: Female : 1950 Arrival Date: 12/03/2018 Time: 23:38 Bed 7 Private MD: ED Physician Fabián Cabrera HPI: 12/04 02:54 This 68 yrs old Female presents to ER via Ambulatory with complaints of Back snw Pain, Nausea. 02:54 The patient presents with pain that is acute. The symptoms are located in the low back. snw Onset: The symptoms/episode began/occurred 2 day(s) ago, and became persistent. The pain does not radiate. Associated signs and symptoms: Pertinent positives: nausea. The problem was sustained from unknown cause. Severity of symptoms: At their worst the symptoms were moderate. It is unknown whether or not the patient has had similar symptoms in the past. It is unknown whether or not the patient has recently seen a physician. Historical: - Allergies: 00:28 Cipro; bb 00:28 Codeine; bb 00:28 Demerol; bb 00:28 HYDROCODONE; bb 00:28 Morphine; bb 00:28 PENICILLINS; bb 00:28 Sulfa (Sulfonamide Antibiotics); bb - Home Meds: 00:28 lisinopril 20 mg Oral tab twice daily [Active]; pantoprazole oral oral [Active]; bb gabapentin oral oral [Active]; - PMHx: 00:28 BRADYCARDIA; GERD; Hypertension; bb - PSHx: 00:28 Appendectomy; PACEMAKER; bb - Immunization history:: Adult Immunizations up to date, Flu vaccine is up to date. - Social history:: Smoking status: Patient/guardian denies using tobacco. - Ebola Screening: : No symptoms or risks identified at this time. ROS: 02:53 Eyes: Negative for injury, pain, redness, and discharge, ENT: Negative for injury, snw pain, and discharge, Neck: Negative for injury, pain, and swelling, Cardiovascular: Negative for chest pain, palpitations, and edema, Respiratory: Negative for shortness of breath, cough, wheezing, and pleuritic chest pain. 02:53 : Negative for injury, bleeding, discharge, and swelling, MS/Extremity: Negative for injury and deformity, Skin: Negative for injury, rash, and discoloration, Neuro: Negative for headache, weakness, numbness, tingling, and seizure. 02:53 Constitutional: Positive for body aches, fever, malaise. 02:53 Abdomen/GI: Positive for nausea. 02:53 Back: Positive for pain at rest, of the low back area. Exam: 02:51 Head/Face: Normocephalic, atraumatic. Eyes: Pupils equal round and reactive to light, snw extra-ocular motions intact. Lids and lashes normal. Conjunctiva and sclera are non-icteric and not injected. Cornea within normal limits. Periorbital areas with no swelling, redness, or edema. ENT: Nares patent. No nasal discharge, no septal abnormalities noted. Tympanic membranes are normal and external auditory canals are clear. Oropharynx with no redness, swelling, or masses, exudates, or evidence of obstruction, uvula midline. Mucous membranes moist. Neck: Trachea midline, no thyromegaly or masses palpated, and no cervical lymphadenopathy. Supple, full range of motion without nuchal rigidity, or vertebral point tenderness. No Meningismus. Chest/axilla: Normal chest wall appearance and motion. Nontender with no deformity. No lesions are appreciated. 02:51 Respiratory: Lungs have equal breath sounds bilaterally, clear to auscultation and percussion. No rales, rhonchi or wheezes noted. No increased work of breathing, no retractions or nasal flaring. Abdomen/GI: Soft, non-tender, with normal bowel sounds. No distension or tympany. No guarding or rebound. No evidence of tenderness throughout. 02:51 Skin: Warm, dry with normal turgor. Normal color with no rashes, no lesions, and no evidence of cellulitis. MS/ Extremity: Pulses equal, no cyanosis. Neurovascular intact. Full, normal range of motion. Neuro: Awake and alert, GCS 15, oriented to person, place, time, and situation. Cranial nerves II-XII grossly intact. Motor strength 5/5 in all extremities. Sensory grossly intact. Cerebellar exam normal. Normal gait. 02:51 Constitutional: The patient appears alert, anxious, febrile, uncomfortable. 02:51 Cardiovascular: Rate: tachycardic, Rhythm: regular, Heart sounds: murmur. 02:51 Back: pain, that is moderate, of the low back area, CVA tenderness, is absent. Vital Signs: 00:28 BP 129 / 72; Pulse 103; Resp 20 S; Temp 101.9(O); Pulse Ox 94% on R/A; Weight 72.57 kg bb (R); Height 5 ft. 1 in. (154.94 cm) (R); Pain 8/10; 01:00 BP 124 / 87; Pulse 98; Resp 17 S; Pulse Ox 98% on R/A; jd3 02:29 BP 119 / 97; Pulse 92; Temp 99.0; Pulse Ox 97% ; lt1 03:30 BP 94 / 62; Pulse 81; Resp 19 S; Pulse Ox 97% on R/A; jd3 04:08 BP 110 / 79; Pulse 78; Resp 18 S; Pulse Ox 98% on R/A; jd3 00:28 Body Mass Index 30.23 (72.57 kg, 154.94 cm) bb MDM: 01:09 Patient medically screened. snw 03:48 Data reviewed: vital signs, nurses notes. Data interpreted: Pulse oximetry: on room air snw is 97 %. Interpretation: normal. Counseling: I had a detailed discussion with the patient and/or guardian regarding: the historical points, exam findings, and any diagnostic results supporting the discharge/admit diagnosis, lab results, the need for outpatient follow up, to return to the emergency department if symptoms worsen or persist or if there are any questions or concerns that arise at home. Special discussion: I have referred the patient to see his PCP for further evaluation of high blood pressure. Based on the history and exam findings, there is no indication for further emergent testing or inpatient evaluation. I discussed with the patient/guardian the need to see the primary care provider for further evaluation of the symptoms. 12/04 00:41 Order name: Flu; Complete Time: 03:29 snw 12/04 00:41 Order name: Urine Culture snw 12/04 00:41 Order name: Urine Microscopic Only; Complete Time: 01:34 snw 12/04 00:41 Order name: Basic Metabolic Panel; Complete Time: 02:30 snw 12/04 00:41 Order name: CBC with Diff; Complete Time: 02:37 snw 12/04 00:41 Order name: Creatinine for Radiology; Complete Time: 02:30 snw 12/04 00:41 Order name: Chest Single View XRAY snw 12/04 00:41 Order name: Hepatic Function; Complete Time: 02:30 snw 12/04 00:41 Order name: Lipase; Complete Time: 02:30 snw 12/04 00:41 Order name: Blood Culture Adult (2) snw 12/04 00:41 Order name: Procalcitonin; Complete Time: 03:33 snw 12/04 00:41 Order name: Lactate; Complete Time: 02:30 snw 12/04 01:12 Order name: Urine Dipstick--Ancillary (enter results); Complete Time: 01:34 mw2 12/03 23:50 Order name: EKG; Complete Time: 23:50 snw 12/03 23:50 Order name: EKG - Nurse/Tech; Complete Time: 01:46 snw 12/04 00:41 Order name: Urine Dipstick-Ancillary (obtain specimen); Complete Time: 01:54 snw 12/04 00:41 Order name: IV Saline Lock; Complete Time: 01:46 snw 12/04 00:41 Order name: Labs collected and sent; Complete Time: 01:46 snw Administered Medications: 01:46 Drug: NS 0.9% 1000 ml Route: IV; Rate: 125 ml/hr; Site: right wrist; jd3 04:07 Follow up: Response: No adverse reaction; IV Status: Order to discontinue infusion jd3 01:54 Drug: Tylenol 1000 mg Route: PO; jd3 04:06 Follow up: Response: No adverse reaction jd3 02:31 Drug: Zofran 4 mg Route: IVP; Site: right wrist; jd3 04:06 Follow up: Response: No adverse reaction jd3 03:55 Drug: Rocephin 1 grams Route: IV; Rate: calculated rate; Site: right wrist; jd3 04:17 Follow up: Response: No adverse reaction; IV Status: Completed infusion jd3 03:55 Drug: Tamiflu 75 mg Route: PO; jd3 04:17 Follow up: Response: No adverse reaction jd3 04:05 Drug: Zofran 4 mg Route: PO; jd3 04:17 Follow up: Response: Medication administered at discharge. jd3 Disposition: 12/04/18 03:44 Discharged to Home. Impression: Dysuria, Fever, unspecified. - Condition is Stable. - Discharge Instructions: Dysuria, Fever, Adult, Influenza, Adult, Rehydration, Elderly. - Prescriptions for Zofran 4 mg Oral Tablet - take 1 tablet by ORAL route every 12 hours As needed; 6 tablet. cefpodoxime 100 mg Oral Tablet - take 1 tablet by ORAL route every 12 hours for 10 days take with food; 20 tablet. Tamiflu 75 mg Oral Capsule - take 1 tablet by ORAL route every 12 hours for 5 days; 10 tablet. - Medication Reconciliation Form, Thank You Letter, Antibiotic Education, Prescription Opioid Use form. - Follow up: Private Physician; When: 2 - 3 days; Reason: Recheck today's complaints, Continuance of care, Re-evaluation by your physician. Follow up: Emergency Department; When: As needed; Reason: Worsening of condition. Signatures: Dispatcher [employer] EDMS Katie Harding, SHALINI-C SLAB POLISHER-Csnw Charissa Mcallister RN RN bb Davies, Jonathon, RN RN jd3 Corrections: (The following items were deleted from the chart) 04:24 03:44 12/04/2018 03:44 Discharged to Home. Impression: Dysuria; Fever, unspecified. jd3 Condition is Stable. Forms are Medication Reconciliation Form, Thank You Letter, Antibiotic Education, Prescription Opioid Use. Follow up: Private Physician; When: 2 - 3 days; Reason: Recheck today's complaints, Continuance of care, Re-evaluation by your physician. Follow up: Emergency Department; When: As needed; Reason: Worsening of condition. snw
--- NOTE | 2018-12-04 03:45 | ER ---
Nurse's Notes [facility] Name: Shelia Valentine Age: 68 yrs Sex: Female : 1950 Arrival Date: 12/03/2018 Time: 23:38 Bed 7 Private MD: Diagnosis: Dysuria;Fever, unspecified Presentation: 12/04 00:26 Presenting complaint: Patient states: she has been sick for two days has back pain, bb pressure when she pees, has chills. Transition of care: patient was not received from another setting of care. Onset of symptoms was December 01, 2018. Risk Assessment: Do you want to hurt yourself or someone else? Patient reports no desire to harm self or others. Initial Sepsis Screen: Does the patient meet any 2 criteria? Yes Does the patient have a suspected source of infection? Yes: Dysuria/Frequency/Urgency/UTI. Care prior to arrival: None. 00:26 Method Of Arrival: Ambulatory bb 00:26 Acuity: ADDI 3 bb Historical: - Allergies: 00:28 Cipro; bb 00:28 Codeine; bb 00:28 Demerol; bb 00:28 HYDROCODONE; bb 00:28 Morphine; bb 00:28 PENICILLINS; bb 00:28 Sulfa (Sulfonamide Antibiotics); bb - Home Meds: 00:28 lisinopril 20 mg Oral tab twice daily [Active]; pantoprazole oral oral [Active]; bb gabapentin oral oral [Active]; - PMHx: 00:28 BRADYCARDIA; GERD; Hypertension; bb - PSHx: 00:28 Appendectomy; PACEMAKER; bb - Immunization history:: Adult Immunizations up to date, Flu vaccine is up to date. - Social history:: Smoking status: Patient/guardian denies using tobacco. - Ebola Screening: : No symptoms or risks identified at this time. Screenin:14 Abuse screen: Denies threats or abuse. Nutritional screening: No deficits noted. jd3 Tuberculosis screening: No symptoms or risk factors identified. Fall Risk Ambulatory Aid- None/Bed Rest/Nurse Assist (0 pts). Gait- Normal/Bed Rest/Wheelchair (0 pts) Mental Status- Oriented to own ability (0 pts). Total Bhatt Fall Scale indicates No Risk (0-24 pts). Assessment: 01:12 General: Appears in no apparent distress. uncomfortable, Behavior is calm, cooperative, jd3 appropriate for age. Pain: Complains of pain in back and abdomen Quality of pain is described as aching. Neuro: Level of Consciousness is awake, alert, obeys commands, Oriented to person, place, time, situation, Appropriate for age. Cardiovascular: Heart tones present Capillary refill < 3 seconds Patient's skin is warm and dry. Respiratory: Airway is patent Respiratory effort is even, unlabored, Respiratory pattern is regular, symmetrical, Breath sounds are clear bilaterally. GI: Abdomen is round Bowel sounds present X 4 quads. Abd is soft and non tender X 4 quads. Reports nausea, vomiting. : No signs and/or symptoms were reported regarding the genitourinary system. EENT: No signs and/or symptoms were reported regarding the EENT system. Derm: Skin is intact, Skin is dry, Skin is normal, Skin temperature is warm. Musculoskeletal: Circulation, motion, and sensation intact. Range of motion: intact in all extremities. 02:25 Reassessment: Patient appears in no apparent distress at this time. Patient and/or jd3 family updated on plan of care and expected duration. Pain level reassessed. Patient is alert, oriented x 3, equal unlabored respirations, skin warm/dry/pink. 03:30 Reassessment: Patient appears in no apparent distress at this time. Patient and/or jd3 family updated on plan of care and expected duration. Pain level reassessed. Patient is alert, oriented x 3, equal unlabored respirations, skin warm/dry/pink. 04:08 Reassessment: Patient appears in no apparent distress at this time. Patient and/or jd3 family updated on plan of care and expected duration. Pain level reassessed. Patient is alert, oriented x 3, equal unlabored respirations, skin warm/dry/pink. Patient states feeling better. Vital Signs: 00:28 BP 129 / 72; Pulse 103; Resp 20 S; Temp 101.9(O); Pulse Ox 94% on R/A; Weight 72.57 kg bb (R); Height 5 ft. 1 in. (154.94 cm) (R); Pain 8/10; 01:00 BP 124 / 87; Pulse 98; Resp 17 S; Pulse Ox 98% on R/A; jd3 02:29 BP 119 / 97; Pulse 92; Temp 99.0; Pulse Ox 97% ; lt1 03:30 BP 94 / 62; Pulse 81; Resp 19 S; Pulse Ox 97% on R/A; jd3 04:08 BP 110 / 79; Pulse 78; Resp 18 S; Pulse Ox 98% on R/A; jd3 00:28 Body Mass Index 30.23 (72.57 kg, 154.94 cm) bb ED Course: 12/03 23:38 Patient arrived in ED. am2 12/04 00:27 Triage completed. bb 00:28 Arm band placed on Patient placed in an exam room, on a stretcher, on pulse oximetry. bb 00:41 Katie Harding FNP-C is PHCP. snw 00:41 Fabián Cabrera MD is Attending Physician. snw 00:42 Meek Borges RN is Primary Nurse. jd3 01:13 X-ray completed. Portable x-ray completed in exam room. Patient tolerated procedure kw well. 01:14 Chest Single View XRAY In Process Unspecified. EDMS 01:14 Patient has correct armband on for positive identification. Placed in gown. Bed in low jd3 position. Call light in reach. Side rails up X2. 01:40 Inserted saline lock: 22 gauge in right wrist, using aseptic technique. Blood collected.jd3 04:18 No provider procedures requiring assistance completed. IV discontinued, intact, jd3 bleeding controlled, No redness/swelling at site. Pressure dressing applied. Administered Medications: 01:46 Drug: NS 0.9% 1000 ml Route: IV; Rate: 125 ml/hr; Site: right wrist; jd3 04:07 Follow up: Response: No adverse reaction; IV Status: Order to discontinue infusion jd3 01:54 Drug: Tylenol 1000 mg Route: PO; jd3 04:06 Follow up: Response: No adverse reaction jd3 02:31 Drug: Zofran 4 mg Route: IVP; Site: right wrist; jd3 04:06 Follow up: Response: No adverse reaction jd3 03:55 Drug: Rocephin 1 grams Route: IV; Rate: calculated rate; Site: right wrist; jd3 04:17 Follow up: Response: No adverse reaction; IV Status: Completed infusion jd3 03:55 Drug: Tamiflu 75 mg Route: PO; jd3 04:17 Follow up: Response: No adverse reaction jd3 04:05 Drug: Zofran 4 mg Route: PO; jd3 04:17 Follow up: Response: Medication administered at discharge. jd3 Outcome: 03:44 Discharge ordered by . keith 04:18 Discharged to home ambulatory. jd3 04:18 Condition: stable 04:18 Discharge instructions given to patient, Instructed on discharge instructions, follow up and referral plans. medication usage, Demonstrated understanding of instructions, follow-up care, medications, Prescriptions given X 3. 04:24 Patient left the ED. jd3 Addendum: 12/07/2018 15:49 Addendum: Culture Results: Positive urine culture. No further action required. Other: s s OK per LEONOR Lea. Sensitive to prescribed antibiotics. . Signatures: Dispatcher [employer] EDMS Katie Harding, PRE PRESS PROOFER-C PRE PRESS PROOFER-Csnw Charissa Mcallister RN RN bb Smirch, Shelby, RN RN ss Whitley, Kimberlee kw Moreno, Amanda Meek Dubon RN RN jd3 Tran, Leah 1 Corrections: (The following items were deleted from the chart) 12/04 02:26 02:25 BP 124 / 87; Pulse 98bpm; Resp 17bpm; Spontaneous; Pulse Ox 98% RA; jnargis jnargis
[2018-12-04] MEDS ORDERED: OSELTAMIVIR 75 MG CAP ONE (03:58)
[2018-12-04] MEDS ORDERED: ONDANSETRON 4 MG (ODT) TAB ONE (03:58)
[2018-12-04] MEDS ORDERED: CEFTRIAXONE/SWI 1gm 1 GM/10 ML SYR ONE (03:59)
[2018-12-04 04:59] VITALS: TEMP 99
[2018-12-04 05:02] VITALS: BP 110/79; O2SAT 98
--- NOTE | 2018-12-04 08:40 | RAD REPORT ---
EXAM DESCRIPTION: Beena Single View12/04/2018 1:15 am CLINICAL HISTORY: Chest and back pain COMPARISON: August 2018 FINDINGS: The lungs appear clear of acute infiltrate. The heart is mildly enlarged. Pacemaker leads are in place. The thoracic spine is not well evaluated on this frontal view. Spondylosis is present. If clinically indicated further evaluation with a dedicated plain film series of the thoracic spine could be obtain ed
--- NOTE | 2018-12-04 12:19 | EKG ---
Test Date: 2018-12-04 Test Time: 00:38:11 Cigar Brander: MICHAEL MEASUREMENT RESULTS: Intervals: Rate: 94 PA: 222 QRSD: 138 QT: 386 QTc: 482 [place]: P: 39 PA: 222 QRS: 55 T: 176 INTERPRETIVE STATEMENTS: Atrial-sensed ventricular-paced rhythm with prolonged AV conduction Abnormal ECG Compared to ECG 09/04/2018 23:52:55 No significant changes Electronically Signed On 12-04-18 12:18:20 CDT by Tmi Rodgers
== END 2018-12-04 04:24 | disposition home or self-care (01) ==
LOC: ER 23:37
DX: R30.0 Dysuria (principal); I10 Essential (primary) hypertension; K21.9 Gastro-esophageal reflux disease without esophagitis; M54.5 Low back pain; Z88.0 Allergy status to penicillin; Z88.2 Allergy status to sulfonamides; Z88.5 Allergy status to narcotic agent; Z88.8 Allergy status to other drugs, medicaments and biological substances; Z95.0 Presence of cardiac pacemaker
CPT/HCPCS: 96365; 96361; 93005; 87040 ×2; 87088; 85025; 87086; 80048; 36415; 80076; 83605; 87077; 87186; 83690; 84145; 87804 ×2; 71045; 96375; 99284; J0696; J7030; J2405; 81003; 81015

== ENCOUNTER 2018-12-20 10:24 | Emergency (ER) | payer OTHER ==
--- NOTE | 2018-12-20 10:42 | ER ---
Nurse's Notes [facility] Name: Shelia Valentine Age: 68 yrs Sex: Female : 1950 Arrival Date: 12/20/2018 Time: 10:26 Bed 6 Private MD: Domenico Jimenes E Diagnosis: Radiculopathy, lumbosacral region Presentation: 12/20 10:29 Presenting complaint: Patient states: pain to left lower leg that began 2 days ago. Pt aa5 denies known injury, pt reports pain radiating to lower back. Transition of care: patient was not received from another setting of care. Onset of symptoms was December 2018. Risk Assessment: Do you want to hurt yourself or someone else? Patient reports no desire to harm self or others. Initial Sepsis Screen: Does the patient meet any 2 criteria? No. Patient's initial sepsis screen is negative. Does the patient have a suspected source of infection? No. Patient's initial sepsis screen is negative. Care prior to arrival: None. 10:29 Method Of Arrival: Ambulatory aa5 10:29 Acuity: ADDI 3 aa5 Historical: - Allergies: 10:30 Cipro; aa5 10:30 Codeine; aa5 10:30 Demerol; aa5 10:30 HYDROCODONE; aa5 10:30 Morphine; aa5 10:30 PENICILLINS; aa5 10:30 Sulfa (Sulfonamide Antibiotics); aa5 - PMHx: 10:30 BRADYCARDIA; GERD; Hypertension; aa5 - PSHx: 10:30 Appendectomy; PACEMAKER; aa5 - Immunization history:: Flu vaccine is up to date. - Social history:: Smoking status: Patient/guardian denies using tobacco. - Ebola Screening: : No symptoms or risks identified at this time. - Family history:: not pertinent. - Hospitalizations: : No recent hospitalization is reported. Screenin:39 Abuse screen: Denies threats or abuse. Nutritional screening: No deficits noted. tw2 Tuberculosis screening: No symptoms or risk factors identified. Fall Risk None identified. Assessment: 10:45 General: Appears in no apparent distress. unkempt, Behavior is calm, cooperative, tw2 appropriate for age. Pain: Complains of pain in right leg and left leg. Neuro: Level of Consciousness is awake, alert, obeys commands, Oriented to person, place, time, situation. Cardiovascular: Denies chest pain, shortness of breath, Patient's skin is warm and dry. Vital Signs: 10:30 BP 152 / 82; Pulse 75; Resp 18 S; Temp 99.0(O); Pulse Ox 97% on R/A; Weight 72.57 kg aa5 (R); Height 5 ft. 1 in. (154.94 cm) (R); Pain 9/10; 10:30 Body Mass Index 30.23 (72.57 kg, 154.94 cm) aa5 ED Course: 10:26 Patient arrived in ED. mr 10:26 Domenico Jimenes MD is Private Physician. mr 10:28 Arm band placed on. aa5 10:29 Triage completed. aa5 10:31 Bed in low position. tw2 10:33 Ru Ely MD is Attending Physician. rn 10:38 Shabana Rai RN is Primary Nurse. tw2 10:47 No provider procedures requiring assistance completed. Patient did not have IV access tw2 during this emergency room visit. Administered Medications: 10:43 Drug: Motrin 800 mg Route: PO; tw2 10:46 Follow up: Response: No adverse reaction tw2 10:43 Drug: predniSONE 60 mg Route: PO; tw2 10:46 Follow up: Response: No adverse reaction tw2 10:43 Drug: Flexeril 10 mg Route: PO; tw2 10:46 Follow up: Response: No adverse reaction tw2 Outcome: 10:42 Discharge ordered by . rn 10:47 Discharged to home ambulatory. tw2 10:47 Condition: stable 10:47 Discharge instructions given to patient, Instructed on discharge instructions, follow up and referral plans. no drinking with medication, no driving heavy equipment, medication usage, Demonstrated understanding of instructions, follow-up care, medications, Prescriptions given X 2. 10:47 Patient left the ED. tw2 Signatures: Татьяна Christie mr Ru Ely MD MD rn Calderon, Audri, RN RN aa5 Shabana Rai RN RN tw2
--- NOTE | 2018-12-20 10:42 | EDPHYS ---
Physician Documentation [facility] Name: Shelia Valentine Age: 68 yrs Sex: Female : 1950 Arrival Date: 12/20/2018 Time: 10:26 Bed 6 Private MD: Domenico Jimenes E ED Physician Ru Ely HPI: 12/20 10:38 This 68 yrs old Female presents to ER via Ambulatory with complaints of Leg rn Pain. 10:38 The patient presents with pain. The complaints affect the . Onset: The symptoms/episode rn began/occurred 2 day(s) ago. Modifying factors: The symptoms are alleviated by nothing. the symptoms are aggravated by nothing. Severity of symptoms: At their worst the symptoms were moderate, in the emergency department the symptoms are unchanged. The patient has experienced similar episodes in the past. Reports intermittent left leg pain for 2 days, has had before, + hx of sciatica, reports pain radiating from left lower back, no fever/trauma/fall. NO bowel or bladder issues. No hx of dvt, no recent surgery. No leg swelling.. Historical: - Allergies: 10:30 Cipro; aa5 10:30 Codeine; aa5 10:30 Demerol; aa5 10:30 HYDROCODONE; aa5 10:30 Morphine; aa5 10:30 PENICILLINS; aa5 10:30 Sulfa (Sulfonamide Antibiotics); aa5 - PMHx: 10:30 BRADYCARDIA; GERD; Hypertension; aa5 - PSHx: 10:30 Appendectomy; PACEMAKER; aa5 - Immunization history:: Flu vaccine is up to date. - Social history:: Smoking status: Patient/guardian denies using tobacco. - Ebola Screening: : No symptoms or risks identified at this time. - Family history:: not pertinent. - Hospitalizations: : No recent hospitalization is reported. ROS: 10:38 Constitutional: Negative for fever, chills, and weight loss, Eyes: Negative for injury, rn pain, redness, and discharge, Neck: Negative for injury, pain, and swelling, Cardiovascular: Negative for chest pain, palpitations, and edema, Respiratory: Negative for shortness of breath, cough, wheezing, and pleuritic chest pain, Abdomen/GI: Negative for abdominal pain, nausea, vomiting, diarrhea, and constipation, Back: + low back pain MS/Extremity: + left leg pain Skin: Negative for injury, rash, and discoloration, Neuro: Negative for headache, weakness, numbness, tingling, and seizure. Vital Signs: 10:30 BP 152 / 82; Pulse 75; Resp 18 S; Temp 99.0(O); Pulse Ox 97% on R/A; Weight 72.57 kg aa5 (R); Height 5 ft. 1 in. (154.94 cm) (R); Pain 9/10; 10:30 Body Mass Index 30.23 (72.57 kg, 154.94 cm) aa5 MDM: 10:33 Patient medically screened. rn 10:40 Differential diagnosis: muscle spasm, radiculopathy. Data reviewed: vital signs, nurses rn notes, and as a result, I will discharge patient. Counseling: I had a detailed discussion with the patient and/or guardian regarding: the historical points, exam findings, and any diagnostic results supporting the discharge/admit diagnosis, the need for outpatient follow up, to return to the emergency department if symptoms worsen or persist or if there are any questions or concerns that arise at home. Response to treatment: the patient's symptoms have mildly improved after treatment, and as a result, I will discharge patient. Special discussion: I discussed with the patient/guardian in detail that at this point there is no indication for admission to the hospital. It is understood, however, that if the symptoms persist or worsen the patient needs to return immediately for re-evaluation. Administered Medications: 10:43 Drug: Motrin 800 mg Route: PO; tw2 10:46 Follow up: Response: No adverse reaction tw2 10:43 Drug: predniSONE 60 mg Route: PO; tw2 10:46 Follow up: Response: No adverse reaction tw2 10:43 Drug: Flexeril 10 mg Route: PO; tw2 10:46 Follow up: Response: No adverse reaction tw2 Disposition: 12/20/18 10:42 Discharged to Home. Impression: Radiculopathy, lumbosacral region. - Condition is Stable. - Discharge Instructions: Lumbosacral Radiculopathy. - Prescriptions for Cyclobenzaprine 10 mg Oral Tablet - take 1 tablet by ORAL route every 8 hours As needed; 15 tablet. Medrol (Boy) 4 mg Oral Tablets, Dose Pack - take 1 tablet by ORAL route as directed - follow package instructions; 1 packet. - Medication Reconciliation Form, Thank You Letter, Antibiotic Education, Prescription Opioid Use form. - Follow up: Private Physician; When: As needed; Reason: Recheck today's complaints, Re-evaluation by your physician. - Problem is an acute exacerbation. - Symptoms have improved. Signatures: Ru Ely MD MD rn Calderon, Audri RN RN aa5 Shabana Rai RN RN tw2 Corrections: (The following items were deleted from the chart) 10:47 10:42 12/20/2018 10:42 Discharged to Home. Impression: Radiculopathy, lumbosacral tw2 region. Condition is Stable. Forms are Medication Reconciliation Form, Thank You Letter, Antibiotic Education, Prescription Opioid Use. Follow up: Private Physician; When: As needed; Reason: Recheck today's complaints, Re-evaluation by your physician. Problem is an acute exacerbation. Symptoms have improved. rn
[2018-12-20] MEDS ORDERED: CYCLOBENZAPRINE 10 MG TAB ONE (10:52)
[2018-12-20] MEDS ORDERED: IBUPROFEN 400 MG TAB ONE (10:52)
[2018-12-20] MEDS ORDERED: predniSONE 20 MG TAB ONE (10:53)
[2018-12-20 14:24] VITALS: BP 152/82; TEMP 99; O2SAT 97
== END 2018-12-20 10:47 | disposition home or self-care (01) ==
LOC: ER 10:24
DX: M54.17 Radiculopathy, lumbosacral region (principal); K21.9 Gastro-esophageal reflux disease without esophagitis; I10 Essential (primary) hypertension; Z88.1 Allergy status to other antibiotic agents; Z88.5 Allergy status to narcotic agent; Z88.0 Allergy status to penicillin; Z88.2 Allergy status to sulfonamides
CPT/HCPCS: 99283; J7512

== ENCOUNTER 2019-01-21 16:24 | Emergency (ER) | payer OTHER ==
[2019-01-21] MEDS ORDERED: IBUPROFEN 400 MG TAB ONE (17:37)
[2019-01-21] MEDS ORDERED: DIAZEPAM 2 MG TABLET ONE (17:37)
--- NOTE | 2019-01-21 19:36 | ER ---
Nurse's Notes [facility] Name: Shelia Valentine Age: 68 yrs Sex: Female : 1950 Arrival Date: 01/21/2019 Time: 16:27 Bed 24 Private MD: Diagnosis: Sciatica, right side Presentation: 01/21 16:58 Presenting complaint: Patient states: Right hip pain for the past 2 to 3 days. Patient aj1 denies injury to right hip. Transition of care: patient was not received from another setting of care. Onset of symptoms was January 17, 2019. Risk Assessment: Do you want to hurt yourself or someone else? Patient reports no desire to harm self or others. Initial Sepsis Screen: Does the patient meet any 2 criteria? No. Patient's initial sepsis screen is negative. Does the patient have a suspected source of infection? No. Patient's initial sepsis screen is negative. Care prior to arrival: None. 16:58 Method Of Arrival: Wheelchair aj1 16:58 Acuity: ADDI 4 aj1 Triage Assessment: 17:00 General: Appears in no apparent distress. comfortable, Behavior is calm, cooperative, aj1 appropriate for age. Pain: Complains of pain in right hip Pain currently is 9 out of 10 on a pain scale. Neuro: Level of Consciousness is awake, alert, obeys commands. Cardiovascular: Patient's skin is warm and dry. Respiratory: Airway is patent Respiratory effort is even, unlabored, Respiratory pattern is regular, symmetrical. Historical: - Allergies: 17:00 Cipro; aj1 17:00 Codeine; aj1 17:00 Demerol; aj1 17:00 HYDROCODONE; aj1 17:00 Morphine; aj1 17:00 PENICILLINS; aj1 17:00 Sulfa (Sulfonamide Antibiotics); aj1 - Home Meds: 17:00 gabapentin Oral [Active]; lisinopril 20 mg Oral tab twice daily [Active]; pantoprazole aj1 Oral [Active]; cyclobenzaprine 5 mg Oral tab 1 tab as needed [Active]; - PMHx: 17:00 BRADYCARDIA; GERD; Hypertension; aj1 - Immunization history:: Flu vaccine is up to date. - Social history:: Smoking status: Patient/guardian denies using tobacco. - Ebola Screening: : Patient denies travel to an Ebola-affected area in the 21 days before illness onset. Screenin:29 Abuse screen: Denies threats or abuse. Nutritional screening: On. Tuberculosis la1 screening: No symptoms or risk factors identified. Fall Risk None identified. Assessment: 17:29 General: Appears in no apparent distress. Behavior is calm, cooperative. Pain: la1 Complains of pain in pelvis and right hip. Neuro: Level of Consciousness is awake, alert, obeys commands, Oriented to person, place, time, situation. Cardiovascular: Capillary refill < 3 seconds Patient's skin is warm and dry. Respiratory: Airway is patent Respiratory effort is even, unlabored. GI: No signs and/or symptoms were reported involving the gastrointestinal system. : No signs and/or symptoms were reported regarding the genitourinary system. Musculoskeletal: Circulation, motion, and sensation intact. Capillary refill < 3 seconds. 19:02 Reassessment: Patient appears in no apparent distress at this time. No changes from la1 previously documented assessment. Patient and/or family updated on plan of care and expected duration. Pain level reassessed. Patient is alert, oriented x 3, equal unlabored respirations, skin warm/dry/pink. Vital Signs: 17:00 BP 164 / 88; Pulse 72; Resp 18; Temp 98.9(O); Pulse Ox 96% on R/A; Height 5 ft. 0 in. aj1 (152.40 cm) (R); Pain 9/10; 19:02 BP 164 / 74; Pulse 81; Resp 16; Pulse Ox 98% on R/A; la1 ED Course: 16:27 Patient arrived in ED. as 16:59 Triage completed. aj1 17:00 Arm band placed on Patient placed in an exam room. aj1 17:02 Roderick Wei PA is PHCP. jmm 17:02 Miguel Martinez MD is Attending Physician. jmm 17:17 Adrián Hernandez, RN is Primary Nurse. la1 17:29 Call light in reach. Side rails up X 1. la1 17:30 No provider procedures requiring assistance completed. Patient did not have IV access la1 during this emergency room visit. 18:21 Ultrasound completed. Patient tolerated well. sg3 19:18 US Extremity Venous Unilateral Ltd In Process Unspecified. EDMS Administered Medications: 17:28 Drug: Ibuprofen 400 mg Route: PO; la1 19:46 Follow up: Response: No adverse reaction; Pain is decreased la1 17:28 Drug: Valium 2 mg Route: PO; la1 19:46 Follow up: Response: No adverse reaction; Pain is decreased la1 Outcome: 19:36 Discharge ordered by . gabrielle 19:46 Discharged to home via wheelchair. la1 19:46 Condition: stable 19:46 Discharge instructions given to patient, Instructed on discharge instructions, follow up and referral plans. medication usage, Demonstrated understanding of instructions, follow-up care, medications, Prescriptions given X 2. 19:46 Patient left the ED. la1 Signatures: Dispatcher [employer] EDMS Adriane Rincon RN RN aj1 Roderick Wei PA PA jmm Martinez, Amelia as Attema, Lee, RN RN la1 Shonna Lofton sg3
--- NOTE | 2019-01-21 19:36 | EDPHYS ---
Physician Documentation [facility] Name: Shelia Valentine Age: 68 yrs Sex: Female : 1950 Arrival Date: 01/21/2019 Time: 16:27 Bed 24 Private MD: ED Physician Miguel Martinez HPI: 01/21 17:04 This 68 yrs old Female presents to ER via Wheelchair with complaints of Hip jmm Pain, Leg Pain. 17:04 The patient or guardian reports pain. Onset: The symptoms/episode began/occurred jmm gradually, 2 day(s) ago. Modifying factors: The symptoms are alleviated by remaining still, the symptoms are aggravated by any movement. Associated signs and symptoms: Pertinent negatives: dysuria, fever. This is a 68 year old female with a history of HTN that presents to the ED with complaints of right hip pain which radiates down her right leg. Patient states having a similar episode to the left lower leg last month with a diagnosis of sciatica. Patient denies bowel incontinence, denies urinary retention. Denies numbness or weakness to the extremity. . Historical: - Allergies: 17:00 Cipro; aj1 17:00 Codeine; aj1 17:00 Demerol; aj1 17:00 HYDROCODONE; aj1 17:00 Morphine; aj1 17:00 PENICILLINS; aj1 17:00 Sulfa (Sulfonamide Antibiotics); aj1 - Home Meds: 17:00 gabapentin Oral [Active]; lisinopril 20 mg Oral tab twice daily [Active]; pantoprazole aj1 Oral [Active]; cyclobenzaprine 5 mg Oral tab 1 tab as needed [Active]; - PMHx: 17:00 BRADYCARDIA; GERD; Hypertension; aj1 - Immunization history:: Flu vaccine is up to date. - Social history:: Smoking status: Patient/guardian denies using tobacco. - Ebola Screening: : Patient denies travel to an Ebola-affected area in the 21 days before illness onset. ROS: 17:04 Constitutional: Negative for fever, chills, and weight loss, Cardiovascular: Negative jmm for chest pain, palpitations, and edema, Respiratory: Negative for shortness of breath, cough, wheezing, and pleuritic chest pain. 17:04 MS/extremity: Positive for pain. 17:04 All other systems are negative. Exam: 17:57 Head/Face: atraumatic. Eyes: EOMI, no conjunctival erythema appreciated ENT: Moist [place] Mucus Membranes Neck: Trachea midline, Supple Chest/axilla: Normal chest wall appearance and motion. Cardiovascular: Regular rate and rhythm. No edema appreciated Respiratory: Normal respirations, no respiratory distress appreciated Abdomen/GI: Non distended, soft 17:57 Skin: General appearance color normal Neuro: Awake and alert, normal gait Psych: Behavior is normal, Mood is normal, Patient is cooperative and pleasant 17:57 Constitutional: The patient appears alert, awake, uncomfortable. 17:57 Back: ROM is normal. 17:57 Musculoskeletal/extremity: pain is elicited on palpation of the right buttocks, FROM appreciated to the right lower extremity, compartments are soft, NVI. 17:57 Skin: Vital Signs: 17:00 BP 164 / 88; Pulse 72; Resp 18; Temp 98.9(O); Pulse Ox 96% on R/A; Height 5 ft. 0 in. aj1 (152.40 cm) (R); Pain 9/10; 19:02 BP 164 / 74; Pulse 81; Resp 16; Pulse Ox 98% on R/A; la1 MDM: 17:04 Patient medically screened. arin 19:31 Data reviewed: vital signs, nurses notes. Counseling: I had a detailed discussion with gabrielle the patient and/or guardian regarding: the historical points, exam findings, and any diagnostic results supporting the discharge/admit diagnosis, radiology results, the need for outpatient follow up, to return to the emergency department if symptoms worsen or persist or if there are any questions or concerns that arise at home. ED course: Pain is moderately relieved in the ED. Patient is resting comfortably upon reexamination. Symptoms appear consistent with sciatica. Extensor hallucis longus intact. I do not suspect cauda equina. Patient is advised to closely follow up with pcp and otherwise given strict return precautions. Patient understood and agrees with the plan of care. . 01/21 17:19 Order name: US Extremity Venous Unilateral Ltd [place] Administered Medications: 17:28 Drug: Ibuprofen 400 mg Route: PO; la1 19:46 Follow up: Response: No adverse reaction; Pain is decreased la1 17:28 Drug: Valium 2 mg Route: PO; la1 19:46 Follow up: Response: No adverse reaction; Pain is decreased la1 Disposition: 01/22 06:52 Co-signature as Attending Physician, Miguel Martinez MD I agree with the assessment and arin plan of care. Disposition: 01/21/19 19:36 Discharged to Home. Impression: Sciatica, right side. - Condition is Stable. - Discharge Instructions: Sciatica. - Prescriptions for Medrol (Boy) 4 mg Oral Tablets, Dose Pack - take 1 tablet by ORAL route as directed - follow package instructions; 1 packet. orphenadrine citrate 100 mg Oral Tablet Sustained Release - take 1 tablet by ORAL route 2 times per day As needed; 20 tablet. - Medication Reconciliation Form, Thank You Letter, Antibiotic Education, Prescription Opioid Use form. - Follow up: Private Physician; When: 2 - 3 days; Reason: Recheck today's complaints, Continuance of care, Re-evaluation by your physician. Signatures: Dispatcher [employer] EDAdriane Bowles RN RN aj1 Miguel Martinez MD MD cha Mickail, Joel, PA PA jm Adrián Hernandez RN RN la1 Corrections: (The following items were deleted from the chart) 01/21 19:46 19:36 01/21/2019 19:36 Discharged to Home. Impression: Sciatica, right side. Condition la1 is Stable. Forms are Medication Reconciliation Form, Thank You Letter, Antibiotic Education, Prescription Opioid Use. Follow up: Private Physician; When: 2 - 3 days; Reason: Recheck today's complaints, Continuance of care, Re-evaluation by your physician. gabrielle
[2019-01-21 19:56] VITALS: TEMP 98.9
[2019-01-21 19:57] VITALS: BP 164/74; O2SAT 98
--- NOTE | 2019-01-21 19:57 | RAD REPORT ---
EXAM DESCRIPTION: US - Extremity Venous Uni Ltd - 01/21/2019 7:18 pm CLINICAL HISTORY: Right leg pain and swelling COMPARISON: None. TECHNIQUE: Real-time sonographic evaluation of the right lower extremity deep venous systems was per formed. FINDINGS: Normal compressibility, flow augmentation, phasic flow and spontaneous flow are identified in the right lower extremity common femoral, superficial femoral, popliteal and posterior tibial vei ns. No intraluminal filling defects seen. IMPRESSION: No DVT in the right lower extremity.
== END 2019-01-21 19:46 | disposition home or self-care (01) ==
LOC: ER 16:24
DX: M54.31 Sciatica, right side (principal); K21.9 Gastro-esophageal reflux disease without esophagitis; I10 Essential (primary) hypertension; Z88.6 Allergy status to analgesic agent; Z88.1 Allergy status to other antibiotic agents; Z88.0 Allergy status to penicillin; Z88.2 Allergy status to sulfonamides
CPT/HCPCS: 93971; 99283

== ENCOUNTER 2019-02-02 09:09 | Emergency (ER) | payer OTHER ==
--- NOTE | 2019-02-02 10:24 | ER ---
Nurse's Notes [facility] Name: Shelia Valentine Age: 68 yrs Sex: Female : 1950 Arrival Date: 02/02/2019 Time: 09:11 Bed 4 Private MD: oDmenico Jimenes E Diagnosis: Sciatica, right side;Chronic pain syndrome;Patient's other noncompliance with medication regimen Presentation: 02/02 09:15 Presenting complaint: pain to R harp area that began months ago. Pain to R hip/ buttock ss that began yesterday. Pt also reports nausea from pain since last night. Denies injury. Transition of care: patient was not received from another setting of care. Onset of symptoms is unknown. Risk Assessment: Do you want to hurt yourself or someone else? Patient reports no desire to harm self or others. Initial Sepsis Screen: Does the patient meet any 2 criteria? No. Patient's initial sepsis screen is negative. Does the patient have a suspected source of infection? No. Patient's initial sepsis screen is negative. Care prior to arrival: None. 09:15 Method Of Arrival: Ambulatory ss 09:15 Acuity: ADDI 4 ss Triage Assessment: 09:15 General: Appears in no apparent distress. Behavior is cooperative, appropriate for age. tw2 GI: Reports "hip pain". Historical: - Allergies: 09:41 Cipro; ss 09:41 Codeine; ss 09:41 Demerol; ss 09:41 HYDROCODONE; ss 09:41 Morphine; ss 09:41 PENICILLINS; ss 09:41 Sulfa (Sulfonamide Antibiotics); ss - PMHx: 09:41 BRADYCARDIA; GERD; Hypertension; ss - Immunization history:: Adult Immunizations up to date. - Social history:: Smoking status: Patient/guardian denies using tobacco. - Ebola Screening: : Patient denies exposure to infectious person Patient denies travel to an Ebola-affected area in the 21 days before illness onset. Screenin:38 Abuse screen: Denies threats or abuse. Nutritional screening: No deficits noted. tw2 Tuberculosis screening: No symptoms or risk factors identified. Fall Risk Secondary diagnosis (15 points) impaired mobility. Assessment: 09:15 General: Appears in no apparent distress. Behavior is calm, cooperative, appropriate tw2 for age. Pain: Complains of pain in right leg and right hip. Neuro: Level of Consciousness is awake, alert, obeys commands, Oriented to person, place, time, situation. Cardiovascular: Heart tones S1 S2 Capillary refill < 3 seconds Patient's skin is warm and dry. Respiratory: Airway is patent Respiratory effort is even, unlabored, Respiratory pattern is regular, symmetrical, Breath sounds are clear bilaterally. GI: Abdomen is round non-distended, obese, Bowel sounds present X 4 quads. Abd is soft and non tender X 4 quads. : No signs and/or symptoms were reported regarding the genitourinary system. EENT: No signs and/or symptoms were reported regarding the EENT system. Derm: No signs and/or symptoms reported regarding the dermatologic system. Musculoskeletal: Range of motion: intact in all extremities. 10:35 Reassessment: Patient appears in no apparent distress at this time. No changes from tw2 previously documented assessment. Patient and/or family updated on plan of care and expected duration. Pain level reassessed. Patient is alert, oriented x 3, equal unlabored respirations, skin warm/dry/pink. Vital Signs: 09:41 BP 189 / 94; Pulse 83; Resp 18; Temp 97.2(TE); Pulse Ox 98% on R/A; Weight 76.2 kg; ss Height 5 ft. 0 in. (152.40 cm); Pain 9/10; 10:36 BP 189 / 97; Pulse 83; Resp 17; Pulse Ox 97% on R/A; Pain 0/10; tw2 09:41 Body Mass Index 32.81 (76.20 kg, 152.40 cm) ED Course: 09:11 Patient arrived in ED. as 09:12 Domenico Jimenes MD is Private Physician. as 09:15 Bed in low position. Call light in reach. Pulse ox on. NIBP on. tw2 09:23 Shabana Rai, KOBI is Primary Nurse. tw2 09:40 Triage completed. ss 09:41 Arm band placed on right wrist. ss 09:58 Fabián Cabrera MD is Attending Physician. gs 10:23 Domenico Jimenes MD is Referral Physician. gs 10:36 No provider procedures requiring assistance completed. Patient did not have IV access tw2 during this emergency room visit. Administered Medications: No medications were administered Outcome: 10:24 Discharge ordered by . gs 10:36 Patient left the ED. tw2 10:36 Discharged to home ambulatory. tw2 10:36 Condition: stable 10:36 Discharge instructions given to patient, Instructed on discharge instructions, follow up and referral plans. Demonstrated understanding of instructions, follow-up care. Signatures: Luly Raymundo Shelby, RN RN Shabana Rai RN RN tw2 Fabián Cabrera MD MD
--- NOTE | 2019-02-02 10:24 | EDPHYS ---
Physician Documentation [facility] Name: Shelia Valentine Age: 68 yrs Sex: Female : 1950 Arrival Date: 02/02/2019 Time: 09:11 Bed 4 Private MD: Domenico Jimenes E ED Physician Fabián Cabrera HPI: 02/02 12:04 This 68 yrs old Female presents to ER via Ambulatory with complaints of Hip gs Pain. 12:04 The complaints affect the right hip. Onset: The symptoms/episode began/occurred gs yesterday. Modifying factors: the symptoms are aggravated by any movement. Associated signs and symptoms: Pertinent negatives:. Associated signs and symptoms: Pertinent positives: nausea, Pertinent negatives: abdominal pain, altered mental status. Severity of symptoms: At their worst the symptoms were moderate, in the emergency department the symptoms are unchanged. The patient has experienced similar episodes in the past, multiple times, chronically. The patient has not recently seen a physician. has not taken meds and is out of pain medication. Historical: - Allergies: 09:41 Cipro; ss 09:41 Codeine; ss 09:41 Demerol; ss 09:41 HYDROCODONE; ss 09:41 Morphine; ss 09:41 PENICILLINS; ss 09:41 Sulfa (Sulfonamide Antibiotics); ss - PMHx: 09:41 BRADYCARDIA; GERD; Hypertension; ss - Immunization history:: Adult Immunizations up to date. - Social history:: Smoking status: Patient/guardian denies using tobacco. - Ebola Screening: : Patient denies exposure to infectious person Patient denies travel to an Ebola-affected area in the 21 days before illness onset. ROS: 12:04 All other systems are negative. gs Exam: 12:04 Head/Face: Normocephalic, atraumatic. Eyes: Pupils equal round and reactive to light, gs extra-ocular motions intact. Lids and lashes normal. Conjunctiva and sclera are non-icteric and not injected. Cornea within normal limits. Periorbital areas with no swelling, redness, or edema. ENT: Nares patent. No nasal discharge, no septal abnormalities noted. Tympanic membranes are normal and external auditory canals are clear. Oropharynx with no redness, swelling, or masses, exudates, or evidence of obstruction, uvula midline. Mucous membranes moist. Neck: Trachea midline, no thyromegaly or masses palpated, and no cervical lymphadenopathy. Supple, full range of motion without nuchal rigidity, or vertebral point tenderness. No Meningismus. Chest/axilla: Normal chest wall appearance and motion. Nontender with no deformity. No lesions are appreciated. Cardiovascular: Regular rate and rhythm with a normal S1 and S2. No gallops, murmurs, or rubs. Normal PMI, no JVD. No pulse deficits. Respiratory: Lungs have equal breath sounds bilaterally, clear to auscultation and percussion. No rales, rhonchi or wheezes noted. No increased work of breathing, no retractions or nasal flaring. Abdomen/GI: Soft, non-tender, with normal bowel sounds. No distension or tympany. No guarding or rebound. No evidence of tenderness throughout. Back: No spinal tenderness. No costovertebral tenderness. Full range of motion. Skin: Warm, dry with normal turgor. Normal color with no rashes, no lesions, and no evidence of cellulitis. Neuro: Awake and alert, GCS 15, oriented to person, place, time, and situation. Cranial nerves II-XII grossly intact. Motor strength 5/5 in all extremities. Sensory grossly intact. Cerebellar exam normal. Normal gait. 12:04 Constitutional: The patient appears alert, awake. 12:04 Musculoskeletal/extremity: Extremities: noted in the right hip: tenderness, sciatic notch, Circulation is intact in all extremities. Sensation intact. Vital Signs: 09:41 BP 189 / 94; Pulse 83; Resp 18; Temp 97.2(TE); Pulse Ox 98% on R/A; Weight 76.2 kg; ss Height 5 ft. 0 in. (152.40 cm); Pain 9/10; 10:36 BP 189 / 97; Pulse 83; Resp 17; Pulse Ox 97% on R/A; Pain 0/10; tw2 09:41 Body Mass Index 32.81 (76.20 kg, 152.40 cm) MDM: 10:02 Patient medically screened. gs 12:04 Differential diagnosis: arthritis, strain, sciatica. Data reviewed: vital signs, nurses gs notes. Counseling: I had a detailed discussion with the patient and/or guardian regarding: the historical points, exam findings, and any diagnostic results supporting the discharge/admit diagnosis, the need for outpatient follow up. Administered Medications: No medications were administered Disposition: 02/02/19 10:24 Discharged to Home. Impression: Sciatica, right side, Chronic pain syndrome, Patient's other noncompliance with medication regimen. - Condition is Stable. - Discharge Instructions: Chronic Pain, Sciatica. - Medication Reconciliation Form, Thank You Letter, Antibiotic Education, Prescription Opioid Use form. - Follow up: Domenico Jimenes MD; When: 1 - 2 days; Reason: Re-evaluation by your physician. Signatures: Deb Silverman RN RN Shabana Rai RN RN tw2 Fabián Cabrera MD MD gs Corrections: (The following items were deleted from the chart) 10:36 10:24 02/02/2019 10:24 Discharged to Home. Impression: Sciatica, right side; Chronic tw2 pain syndrome; Patient's other noncompliance with medication regimen. Condition is Stable. Forms are Medication Reconciliation Form, Thank You Letter, Antibiotic Education, Prescription Opioid Use. Follow up: Domenico Jimenes; When: 1 - 2 days; Reason: Re-evaluation by your physician. gs
[2019-02-02 10:42] VITALS: TEMP 97.2
[2019-02-02 10:44] VITALS: BP 189/97; O2SAT 97
== END 2019-02-02 10:36 | disposition home or self-care (01) ==
LOC: ER 09:09
DX: M54.31 Sciatica, right side (principal); G89.4 Chronic pain syndrome; Z91.14 Patient's other noncompliance with medication regimen; I10 Essential (primary) hypertension; Z88.0 Allergy status to penicillin; Z88.2 Allergy status to sulfonamides; Z88.5 Allergy status to narcotic agent; Z88.8 Allergy status to other drugs, medicaments and biological substances
CPT/HCPCS: 99283

== ENCOUNTER 2019-05-11 11:28 | Emergency (ER) | payer OTHER ==
[2019-05-11] MEDS ORDERED: NITROFURAN MACRO 100 MG CAP PO ONE (12:49)
[2019-05-11] MEDS ORDERED: HYDROMORPHONE HCL 0.5 MG/0.5 ML INJ ONE (13:20)
[2019-05-11] MEDS ORDERED: ONDANSETRON 4 MG/2 ML VIAL ONE ×2 (13:21→14:28)
[2019-05-11] MEDS ORDERED: NA CHLORIDE 0.9% 500 ML ONE (13:21)
[2019-05-11] MEDS ORDERED: IBUPROFEN 400 MG TAB ONE (13:21)
[2019-05-11 13:56] LABS: Urine Blood TRACE (NEG); Urine Glucose NEGATIVE (NEG); Urine Protein NEGATIVE (NEG); Urine Specific Gravity 1.025 (1.005-1.030); Urine pH 5.5 (5.0-7.0)
--- NOTE | 2019-05-11 13:58 | RAD REPORT ---
EXAM DESCRIPTION: Sary Turpin Left05/11/2019 1:44 pm CLINICAL HISTORY: Left leg pain FINDINGS: 14 millimeter exostosis extends off of the anterior superior aspect of the tibia. No fracture is noted.
[2019-05-11 14:00] LABS: Basophils % 0.3 % (0-1.3); Hematocrit 42.7 % (36.0-45.0); Lymphocytes % 32.4 % (15.3-44.8); MPV 8.4 fL (7.6-11.3); RBC Red Blood Cell Count 4.95 M/uL (3.86-4.86)
[2019-05-11 14:04] LABS: Albumin 3.5 g/dL (3.4-5.0); Bilirubin Total 0.4 mg/dL (0.2-1.0); Potassium 4.6 mmol/L (3.5-5.1); Protein, Total 8.3 g/dL (6.4-8.2)
--- NOTE | 2019-05-11 14:37 | RAD REPORT ---
EXAM DESCRIPTION: USExtremidris Venous Uni Ltd05/11/2019 2:21 pm CLINICAL HISTORY: Bilateral leg pain COMPARISON: January 2019 FINDINGS: The common femoral, superficial femoral, popliteal and posterior tibial veins bilaterally are compressible and demonstrate augmentation. Doppler demonstrates good flow. IMPRESSION: No evidence of deep venous thrombosis involving either lower extremity.
--- NOTE | 2019-05-11 14:57 | EDPHYS ---
Physician Documentation [facility] Name: Shelia Valentine Age: 68 yrs Sex: Female : 1950 Arrival Date: 05/11/2019 Time: 11:32 Bed 23 Private MD: ED Physician Miguel Martinez HPI: 05/11 12:46 This 68 yrs old Female presents to ER via Ambulatory with complaints of Back arin Pain, Leg Pain. 12:46 The patient presents with pain that is acute, with no known mechanism of injury. The arin symptoms are located in the low back. Onset: The symptoms/episode began/occurred 3 day(s) ago. The pain does not radiate. Associated signs and symptoms: The patient has no apparent associated signs or symptoms. Modifying factors: The patient symptoms are alleviated by nothing, the patient symptoms are aggravated by nothing. Severity of symptoms: At their worst the symptoms were mild, in the emergency department the symptoms are unchanged. The patient has experienced similar episodes in the past, several times. Historical: - Allergies: 11:34 Cipro; la1 11:34 Codeine; la1 11:34 Demerol; la1 11:34 HYDROCODONE; la1 11:34 Morphine; la1 11:34 PENICILLINS; la1 11:34 Sulfa (Sulfonamide Antibiotics); la1 - Home Meds: 12:17 cyclobenzaprine 5 mg Oral tab 1 tab as needed [Active]; lisinopril 20 mg Oral tab twice mg2 daily [Active]; pantoprazole Oral [Active]; gabapentin Oral [Active]; - PMHx: 11:34 BRADYCARDIA; GERD; Hypertension; la1 - Immunization history:: Adult Immunizations up to date. - Social history:: Smoking status: Patient/guardian denies using tobacco. - Ebola Screening: : No symptoms or risks identified at this time. - Family history:: not pertinent. ROS: 12:46 Constitutional: Negative for fever, chills, and weight loss, Eyes: Negative for injury, arin pain, redness, and discharge, ENT: Negative for injury, pain, and discharge, Neck: Negative for injury, pain, and swelling, Cardiovascular: Negative for chest pain, palpitations, and edema, Respiratory: Negative for shortness of breath, cough, wheezing, and pleuritic chest pain, Abdomen/GI: Negative for abdominal pain, nausea, vomiting, diarrhea, and constipation, : Negative for injury, bleeding, discharge, and swelling, Skin: Negative for injury, rash, and discoloration, Neuro: Negative for headache, weakness, numbness, tingling, and seizure, Psych: Negative for depression, anxiety, suicide ideation, homicidal ideation, and hallucinations, Allergy/Immunology: Negative for hives, rash, and allergies, Endocrine: Negative for neck swelling, polydipsia, polyuria, polyphagia, and marked weight changes, Hematologic/Lymphatic: Negative for swollen nodes, abnormal bleeding, and unusual bruising. 12:46 Back: Positive for decreased range of motion, pain at rest, pain with movement. Exam: 12:46 Constitutional: This is a well developed, well nourished patient who is awake, alert, arin and in no acute distress. Head/Face: Normocephalic, atraumatic. Eyes: Pupils equal round and reactive to light, extra-ocular motions intact. Lids and lashes normal. Conjunctiva and sclera are non-icteric and not injected. Cornea within normal limits. Periorbital areas with no swelling, redness, or edema. ENT: Nares patent. No nasal discharge, no septal abnormalities noted. Tympanic membranes are normal and external auditory canals are clear. Oropharynx with no redness, swelling, or masses, exudates, or evidence of obstruction, uvula midline. Mucous membranes moist. Neck: Trachea midline, no thyromegaly or masses palpated, and no cervical lymphadenopathy. Supple, full range of motion without nuchal rigidity, or vertebral point tenderness. No Meningismus. Chest/axilla: Normal chest wall appearance and motion. Nontender with no deformity. No lesions are appreciated. Cardiovascular: Regular rate and rhythm with a normal S1 and S2. No gallops, murmurs, or rubs. Normal PMI, no JVD. No pulse deficits. Respiratory: Lungs have equal breath sounds bilaterally, clear to auscultation and percussion. No rales, rhonchi or wheezes noted. No increased work of breathing, no retractions or nasal flaring. Abdomen/GI: Soft, non-tender, with normal bowel sounds. No distension or tympany. No guarding or rebound. No evidence of tenderness throughout. Back: No spinal tenderness. No costovertebral tenderness. Full range of motion. Female : Normal external genitalia. Skin: Warm, dry with normal turgor. Normal color with no rashes, no lesions, and no evidence of cellulitis. Neuro: Awake and alert, GCS 15, oriented to person, place, time, and situation. Cranial nerves II-XII grossly intact. Motor strength 5/5 in all extremities. Sensory grossly intact. Cerebellar exam normal. Normal gait. Psych: Awake, alert, with orientation to person, place and time. Behavior, mood, and affect are within normal limits. 12:46 Musculoskeletal/extremity: Extremities: all appear grossly normal, with no appreciated pain with palpation, ROM: full active range of motion, full passive range of motion, Circulation is intact in all extremities. Pulses: noted to be 4+ in the bilateral radial, brachial, femoral, popliteal, posterior tibial and and dorsalis pedis arteries., Perfusion: the patient is normally perfused throughout, Perfusion: the extremity is normally perfused throughout, Calf tenderness, that is mild, Edema, DVT Exam: no pain, no swelling, negative Homans' sign noted on exam, no appreciated bluish discoloration, no erythema, no increased warmth, tenderness, pain left and right lateral lower extremities. Vital Signs: 11:35 BP 131 / 81; Pulse 70; Resp 16; Temp 97.5; Pulse Ox 98% on R/A; Weight 72.57 kg; Height la1 5 ft. 2 in. (157.48 cm); 12:16 BP 119 / 70; Pulse 63; Resp 18; Pulse Ox 100% on R/A; mg2 13:17 BP 139 / 79; Pulse 63; Resp 18; Pulse Ox 100% on R/A; mg2 14:34 BP 154 / 63; Pulse 60; Resp 18; Pulse Ox 98% on R/A; mg2 15:36 BP 162 / 91; Pulse 65; Resp 16; Pulse Ox 96% on R/A; rv 16:22 BP 161 / 79; Pulse 66; Resp 18; Temp 98.5; Pulse Ox 100% on R/A; Pain 0/10; mg2 11:35 Body Mass Index 29.26 (72.57 kg, 157.48 cm) la1 MDM: 11:55 Patient medically screened. [facility] 12:50 Data reviewed: vital signs, nurses notes, lab test result(s), urinalysis. [facility] 05/11 12:16 Order name: Urine Dipstick--Ancillary (enter results); Complete Time: 14:52 dh3 05/11 12:43 Order name: Urine Culture [facility] 05/11 13:15 Order name: CBC with Diff; Complete Time: 14:52 [facility] 05/11 13:15 Order name: Comprehensive Metabolic Panel; Complete Time: 14:52 [facility] 05/11 15:17 Order name: Troponin (emerg Dept Use Only); Complete Time: 16:11 [facility] 05/11 15:17 Order name: Ckmb; Complete Time: 16:11 [facility] 05/11 13:15 Order name: US Extremity Venous Unilateral Ltd; Complete Time: 16:11 [facility] 05/11 13:15 Order name: US Lower Extremity Artery Uni Ltd; Complete Time: 16:11 [facility] 05/11 13:15 Order name: Tib Fib Left XRAY; Complete Time: 15:15 [facility] 05/11 15:17 Order name: CK; Complete Time: 16:11 [facility] 05/11 15:17 Order name: CT Aorta for Dissection; Complete Time: 16:11 [facility] 05/11 15:15 Order name: EKG; Complete Time: 15:16 [facility] 05/11 15:15 Order name: EKG - Nurse/Tech; Complete Time: 15:41 [facility] Administered Medications: 12:51 Drug: Nitrofurantoin 100 mg Route: PO; mg2 14:32 Follow up: Response: No adverse reaction mg2 13:39 Drug: Dilaudid 0.5 mg Route: IVP; Site: right hand; mg2 14:32 Follow up: Response: No adverse reaction; Marked relief of symptoms; RASS: Alert and mg2 Calm (0) 13:39 Drug: Zofran 4 mg Route: IVP; Site: right hand; mg2 14:33 Follow up: Response: No adverse reaction mg2 13:40 Drug: Motrin 400 mg Route: PO; mg2 14:32 Follow up: Response: No adverse reaction mg2 13:40 Drug: NS 0.9% 500 ml Route: IV; Rate: bolus; Site: right hand; mg2 14:40 Follow up: Response: No adverse reaction; IV Status: Completed infusion; IV Intake: mg2 500ml 14:32 Drug: Zofran 4 mg Route: IVP; Site: right hand; mg2 14:59 Follow up: Response: No adverse reaction mg2 15:22 Drug: Phenergan 12.5 mg Route: IVP; Site: right hand; mg2 15:42 Follow up: Response: No adverse reaction; Marked relief of symptoms mg2 Disposition: 05/11/19 14:55 Discharged to Home. Impression: Low back pain, Urinary tract infection, site not specified, Pain in left leg. - Condition is Stable. - Discharge Instructions: Back Pain, Adult, Chronic Back Pain, Dysuria, Musculoskeletal Pain, Urinary Tract Infection, Adult, Urinary Tract Infection, Adult, [id number], Back Pain, Adult, [id number]. - Prescriptions for Macrobid 100 mg Oral Capsule - take 1 capsule by ORAL route every 12 hours for 7 days; 14 capsule. Tramadol 50 mg Oral Tablet - take 1 tablet by ORAL route every 6 hours as needed; 26 tablet. Valium 2 mg Oral Tablet - take 1 tablet by ORAL route every 8 hours As needed; 20 tablet. - Medication Reconciliation Form, Thank You Letter, Antibiotic Education, Prescription Opioid Use form. - Follow up: Private Physician; When: 2 - 3 days; Reason: Recheck today's complaints, Continuance of care, Re-evaluation by your physician. - Problem is new. - Symptoms have improved. Signatures: Dispatcher [employer] [facility] Miguel Martinez MD MD cha Attema, Lee RN RN la1 Javed Maldonado RN RN mg2 Corrections: (The following items were deleted from the chart) 15:29 15:16 Stone Protocol+CT.RAD.BRZ ordered. [facility] 16:24 14:55 05/11/2019 14:55 Discharged to Home. Impression: Low back pain; Urinary tract mg2 infection, site not specified; Pain in left leg. Condition is Stable. Discharge Instructions: Back Pain, Adult, Chronic Back Pain, Dysuria, Musculoskeletal Pain, Urinary Tract Infection, Adult, Urinary Tract Infection, Adult, [id number], Back Pain, Adult, [id number]. Prescriptions for Macrobid 100 mg Oral Capsule - take 1 capsule by ORAL route every 12 hours for 7 days; 14 capsule, Tramadol 50 mg Oral Tablet - take 1 tablet by ORAL route every 6 hours as needed; 26 tablet. and Forms are Medication Reconciliation Form, Thank You Letter, Antibiotic Education, Prescription Opioid Use. Follow up: Private Physician; When: 2 - 3 days; Reason: Recheck today's complaints, Continuance of care, Re-evaluation by your physician. Problem is new. Symptoms have improved. arin
--- NOTE | 2019-05-11 14:57 | ER ---
Nurse's Notes [facility] Name: Shelia Valentine Age: 68 yrs Sex: Female : 1950 Arrival Date: 05/11/2019 Time: 11:32 Bed 23 Private MD: Diagnosis: Low back pain;Urinary tract infection, site not specified;Pain in left leg Presentation: 05/11 11:34 Presenting complaint: Patient states: My back has been hurting me for about 4 days and la1 both of my legs have been hurting for 2 nights, it also tovar when I pee. Transition of care: patient was not received from another setting of care. Onset of symptoms was May 11, 2019. Risk Assessment: Do you want to hurt yourself or someone else? Patient reports no desire to harm self or others. Initial Sepsis Screen: Does the patient meet any 2 criteria? No. Patient's initial sepsis screen is negative. Does the patient have a suspected source of infection? No. Patient's initial sepsis screen is negative. Care prior to arrival: None. 11:34 Method Of Arrival: Ambulatory la1 11:34 Acuity: ADDI 3 la1 Historical: - Allergies: 11:34 Cipro; la1 11:34 Codeine; la1 11:34 Demerol; la1 11:34 HYDROCODONE; la1 11:34 Morphine; la1 11:34 PENICILLINS; la1 11:34 Sulfa (Sulfonamide Antibiotics); la1 - Home Meds: 12:17 cyclobenzaprine 5 mg Oral tab 1 tab as needed [Active]; lisinopril 20 mg Oral tab twice mg2 daily [Active]; pantoprazole Oral [Active]; gabapentin Oral [Active]; - PMHx: 11:34 BRADYCARDIA; GERD; Hypertension; la1 - Immunization history:: Adult Immunizations up to date. - Social history:: Smoking status: Patient/guardian denies using tobacco. - Ebola Screening: : No symptoms or risks identified at this time. - Family history:: not pertinent. Screenin:16 Abuse screen: Denies threats or abuse. Denies injuries from another. Nutritional mg2 screening: No deficits noted. Tuberculosis screening: No symptoms or risk factors identified. Fall Risk None identified. Assessment: 12:14 General: Appears in no apparent distress. comfortable, Behavior is calm, cooperative. mg2 Pain: Complains of pain in back, right leg and left leg Pain does not radiate. Pain currently is 4 out of 10 on a pain scale. Quality of pain is described as aching, Pain began gradually, 2-3 days ago. Is intermittent. Neuro: Level of Consciousness is awake, alert, obeys commands, Oriented to person, place, time, situation. Cardiovascular: Capillary refill < 3 seconds Patient's skin is warm and dry. Respiratory: Airway is patent Respiratory effort is even, unlabored, Respiratory pattern is regular, symmetrical. GI: No signs and/or symptoms were reported involving the gastrointestinal system. : No signs and/or symptoms were reported regarding the genitourinary system. :. : Reports burning with urination, since 3 days. EENT: No signs and/or symptoms were reported regarding the EENT system. Derm: Skin is intact, is healthy with good turgor, Skin is pink, warm \T\ dry. normal. Musculoskeletal: Circulation, motion, and sensation intact. Capillary refill < 3 seconds, Reports pain in back, right leg and left leg. 15:23 Reassessment: patient vomited several times in ed. provider informed and ordered mg2 further tests on her. patient sent to ct scan via stretcher. 16:22 Reassessment: Patient denies pain at this time. Patient states feeling better. Patient mg2 states symptoms have improved. Vital Signs: 11:35 BP 131 / 81; Pulse 70; Resp 16; Temp 97.5; Pulse Ox 98% on R/A; Weight 72.57 kg; Height la1 5 ft. 2 in. (157.48 cm); 12:16 BP 119 / 70; Pulse 63; Resp 18; Pulse Ox 100% on R/A; mg2 13:17 BP 139 / 79; Pulse 63; Resp 18; Pulse Ox 100% on R/A; mg2 14:34 BP 154 / 63; Pulse 60; Resp 18; Pulse Ox 98% on R/A; mg2 15:36 BP 162 / 91; Pulse 65; Resp 16; Pulse Ox 96% on R/A; rv 16:22 BP 161 / 79; Pulse 66; Resp 18; Temp 98.5; Pulse Ox 100% on R/A; Pain 0/10; mg2 11:35 Body Mass Index 29.26 (72.57 kg, 157.48 cm) la1 ED Course: 11:32 Patient arrived in ED. cf2 11:35 Triage completed. la1 11:35 Arm band placed on left wrist. la1 11:55 Miguel Martinez MD is Attending Physician. arin 11:55 Javed Maldonado, RN is Primary Nurse. mg2 12:16 No provider procedures requiring assistance completed. mg2 12:17 Patient has correct armband on for positive identification. Pulse ox on. NIBP on. Door mg2 closed. Warm blanket given. 13:20 Inserted saline lock: 24 gauge in right hand, using aseptic technique. Blood collected. mg2 13:54 Tib Fib Left XRAY In Process Unspecified. EDMS 14:31 US Extremity Venous Unilateral Ltd In Process Unspecified. EDMS 14:31 US Lower Extremity Artery Uni Ltd In Process Unspecified. EDMS 15:37 CT Aorta for Dissection In Process Unspecified. EDMS 16:23 IV discontinued, intact, bleeding controlled, No redness/swelling at site. Pressure mg2 dressing applied. Administered Medications: 12:51 Drug: Nitrofurantoin 100 mg Route: PO; mg2 14:32 Follow up: Response: No adverse reaction mg2 13:39 Drug: Dilaudid 0.5 mg Route: IVP; Site: right hand; mg2 14:32 Follow up: Response: No adverse reaction; Marked relief of symptoms; RASS: Alert and mg2 Calm (0) 13:39 Drug: Zofran 4 mg Route: IVP; Site: right hand; mg2 14:33 Follow up: Response: No adverse reaction mg2 13:40 Drug: Motrin 400 mg Route: PO; mg2 14:32 Follow up: Response: No adverse reaction mg2 13:40 Drug: NS 0.9% 500 ml Route: IV; Rate: bolus; Site: right hand; mg2 14:40 Follow up: Response: No adverse reaction; IV Status: Completed infusion; IV Intake: mg2 500ml 14:32 Drug: Zofran 4 mg Route: IVP; Site: right hand; mg2 14:59 Follow up: Response: No adverse reaction mg2 15:22 Drug: Phenergan 12.5 mg Route: IVP; Site: right hand; mg2 15:42 Follow up: Response: No adverse reaction; Marked relief of symptoms mg2 Outcome: 14:55 Discharge ordered by . arin 16:23 Discharged to home via wheelchair. mg2 16:23 Condition: stable 16:23 Discharge instructions given to patient, Instructed on discharge instructions, follow up and referral plans. medication usage, Demonstrated understanding of instructions, follow-up care, medications, Prescriptions given X 3. 16:24 Patient left the ED. mg2 Signatures: Dispatcher [employer] Miguel Gonzalez MD MD cha Attema, Lee, RN RN la1 Javed Maldonado RN RN mg2 Melchor Chavez RN RN Kacey Freire 2 Corrections: (The following items were deleted from the chart) 11:36 11:34 Presenting complaint: Patient states: My back has been hurting me for about 4 la1 days and both of my legs have been hurting for 2 nights la1
--- NOTE | 2019-05-11 15:08 | RAD REPORT ---
EXAM DESCRIPTION: US - Lower Extremity Artery Uni Ltd - 05/11/2019 2:21 pm CLINICAL HISTORY: Leg pain COMPARISON: None FINDINGS: Waveforms of the left common femoral, superficial femoral and popliteal arteries are b to triphasic. 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
[2019-05-11] MEDS ORDERED: PROMETHAZINE 25 MG/ML VIAL ONE (15:17)
[2019-05-11 15:39] LABS: CKMB Creatine Kinase MB 2.1 ng/mL (0.3-3.6); Creatine Phosphokinase 135 U/L (26-192); Troponin (Emerg Dept Use Only) < 0.02 ng/mL (0.0-0.045)
--- NOTE | 2019-05-11 15:58 | RAD REPORT ---
EXAM DESCRIPTION: CT - Angio Aorta For Dissection - 05/11/2019 3:30 pm CLINICAL HISTORY: Dissection;Painchest pain, back pain COMPARISON: Portable chest December 04, 2018, CT dissection study May 2014 TECHNIQUE: Dynamically enhanced 3 mm thick images of the chest, abdomen, and upper pelvis were obtai alphonso during administration of approximately 150mL Isovue 370 IV contrast. Sagittal and coronal reconst ruction images were generated using MIP and reviewed. Exam utilizes a protocol to evaluate entire cou rse of the aorta. All CT scans are performed using dose optimization technique as appropriate and may include automated exposure control or mA/KV adjustment according to patient size. FINDINGS: Aorta is normal in diameter with no dissection or other acute aortic findings. Reconstruct ion images show no significant findings. Great vessel origin show no stenosis. There is tortuosity of the proximal portion of the great vessels. Subclavian arteries as imaged are unremarkable. Pulmonary arteries are unremarkable. No cardiomegaly, pericardial thickening or pericardial effusion. Pacemaker is in place. No mass or infiltrate in the lung parenchyma. No pleural thickening, pleural effusion or pneumothorax . No abnormal mediastinal or hilar mass or lymphadenopathy seen. No chest wall mass or abnormal axillar y lymphadenopathy. Celiac, SMA and renal arteries show no suspicious findings. Solid abdominal viscera and bowel show no significant findings. A 3.1 centimeter cyst is present in the medial right lobe of the liver. Patien t has a small hiatal hernia. No mass or abnormal lymphadenopathy. No free air, free fluid or inflamm atory stranding. Urinary bladder is fully contracted. Uterus and ovaries show no suspicious findings. An 18 millimeter left ovarian cyst is present. No free air, free fluid or inflammatory stranding. Postsurgical changes are noted to the anterior abd ominal wall. Small fat only hernia is present at the umbilical level where there is also laxity of th e anterior abdominal wall. No acute bone findings seen. There is significant degenerative disc disease at L5-S1. IMPRESSION: Negative CT scan of the aorta. No acute findings on chest, abdomen and upper pelvis examination.
[2019-05-11 17:47] VITALS: BP 161/79; TEMP 98.5; O2SAT 100
--- NOTE | 2019-05-12 15:50 | EKG ---
Test Date: 2019-05-11 Test Time: 15:39:03 Personal Injury Law Specialist: HANNAH MEASUREMENT RESULTS: Intervals: Rate: 78 NE: 220 QRSD: 160 QT: 508 QTc: 579 [place]: P: 71 NE: 220 QRS: 78 T: 176 INTERPRETIVE STATEMENTS: Sinus rhythm with 1st degree AV block with occasional and consecutive premature ventricular complexes Atrial-sensed ventricular-paced rhythm Abnormal ECG Compared to ECG 12/04/2018 00:38:11 Ventricular premature complex(es) now present First degree AV block now present Electronically Signed On 05-12-19 15:50:20 CDT by Tim Rodgers
== END 2019-05-11 16:24 | disposition home or self-care (01) ==
LOC: ER 11:28
DX: N39.0 Urinary tract infection, site not specified (principal); M79.605 Pain in left leg; K21.9 Gastro-esophageal reflux disease without esophagitis; I10 Essential (primary) hypertension; Z88.6 Allergy status to analgesic agent; Z88.0 Allergy status to penicillin; Z88.2 Allergy status to sulfonamides; Z88.1 Allergy status to other antibiotic agents
CPT/HCPCS: 96361; 93005; 87088; 85025; 87086; 36415; 82550; 81003; 84484; 82553; 80053; 71275; 74175; 73590; 93926; 93971; 96375; 96374; 99284; Q9967; J2550; J1170; J2405 ×2

== ENCOUNTER 2019-08-19 21:58 | Emergency (ER) | payer OTHER ==
[2019-08-19 22:49] LABS: Urine Blood 2+ (NEG); Urine Glucose NEGATIVE (NEG); Urine Protein NEGATIVE (NEG)
[2019-08-19] MEDS ORDERED: LOSARTAN POTASSIUM 50 MG TABLET ONE (22:53)
[2019-08-19 23:09] LABS: Urine Bacteria <20 /HPF (<20); Urine Culture Reflex Order NOT NEEDED
[2019-08-19] MEDS ORDERED: ONDANSETRON 4 MG (ODT) TAB ONE (23:43)
[2019-08-20] MEDS ORDERED: KETOROLAC 30 MG/ML INJ ONE (00:35)
--- NOTE | 2019-08-20 00:49 | EDPHYS ---
Physician Documentation [facility] Name: Shelia Valentine Age: 68 yrs Sex: Female : 1950 Arrival Date: 08/19/2019 Time: 22:06 Bed 14 Private MD: ED Physician Ki Virk HPI: 08/19 23:13 This 68 yrs old Female presents to ER via EMS with complaints of Leg Pain. snw 23:13 The patient presents with pain, that is acute. The complaints affect the left gluteal snw fold, left hamstring and left calf. Context: The problem was sustained at home, resulted from an unknown cause, the patient can fully bear weight, the patient is able to ambulate. Onset: The symptoms/episode began/occurred suddenly, and became persistent. Associated signs and symptoms: The patient has no apparent associated signs or symptoms. Severity of symptoms: At their worst the symptoms were moderate. The patient has experienced similar episodes in the past. It is unknown whether or not the patient has recently seen a physician. pt has multiple empty medication bottles, states she ran out of them 2 weeks ago. Historical: - Allergies: 22:12 Cipro; 22:12 Codeine; 22:12 Demerol; 22:12 HYDROCODONE; 22:12 Morphine; 22:12 PENICILLINS; 22:12 Sulfa (Sulfonamide Antibiotics); - Home Meds: 22:12 pantoprazole Oral [Active]; losartan oral oral [Active]; amlodipine oral [Active]; - PMHx: 22:12 BRADYCARDIA; GERD; Hypertension; - Immunization history:: Adult Immunizations up to date. - Social history:: Smoking status: Patient/guardian denies using tobacco. - Ebola Screening: : Patient negative for fever greater than or equal to 101.5 degrees Fahrenheit, and additional compatible Ebola Virus Disease symptoms Patient denies exposure to infectious person. ROS: 23:08 Neck: Negative for injury, pain, and swelling. snw 23:08 Constitutional: Negative for fever, chills, and weight loss, Eyes: Negative for injury, pain, redness, and discharge, ENT: Negative for injury, pain, and discharge, Cardiovascular: Negative for chest pain, palpitations, and edema, Respiratory: Negative for shortness of breath, cough, wheezing, and pleuritic chest pain, Abdomen/GI: Negative for abdominal pain, nausea, vomiting, diarrhea, and constipation, Back: Negative for injury and pain. 23:08 Skin: Negative for injury, rash, and discoloration, Neuro: Negative for headache, weakness, numbness, tingling, and seizure. 23:08 : Positive for urinary symptoms. 23:08 MS/extremity: Positive for pain, of the left leg. Exam: 23:08 Constitutional: This is a well developed, well nourished patient who is awake, alert, snw and in no acute distress. Head/Face: Normocephalic, atraumatic. Eyes: Pupils equal round and reactive to light, extra-ocular motions intact. Lids and lashes normal. Conjunctiva and sclera are non-icteric and not injected. Cornea within normal limits. Periorbital areas with no swelling, redness, or edema. ENT: Nares patent. No nasal discharge, no septal abnormalities noted. Tympanic membranes are normal and external auditory canals are clear. Oropharynx with no redness, swelling, or masses, exudates, or evidence of obstruction, uvula midline. Mucous membranes moist. Neck: Trachea midline, no thyromegaly or masses palpated, and no cervical lymphadenopathy. Supple, full range of motion without nuchal rigidity, or vertebral point tenderness. No Meningismus. Chest/axilla: Normal chest wall appearance and motion. Nontender with no deformity. No lesions are appreciated. Cardiovascular: Regular rate and rhythm with a normal S1 and S2. No gallops, murmurs, or rubs. Normal PMI, no JVD. No pulse deficits. Respiratory: Lungs have equal breath sounds bilaterally, clear to auscultation and percussion. No rales, rhonchi or wheezes noted. No increased work of breathing, no retractions or nasal flaring. Abdomen/GI: Soft, non-tender, with normal bowel sounds. No distension or tympany. No guarding or rebound. No evidence of tenderness throughout. Back: No spinal tenderness. No costovertebral tenderness. Full range of motion. Skin: Warm, dry with normal turgor. Normal color with no rashes, no lesions, and no evidence of cellulitis. Neuro: Awake and alert, GCS 15, oriented to person, place, time, and situation. Cranial nerves II-XII grossly intact. Motor strength 5/5 in all extremities. Sensory grossly intact. Cerebellar exam normal. Normal gait. Psych: Awake, alert, with orientation to person, place and time. Behavior, mood, and affect are within normal limits. 23:08 Musculoskeletal/extremity: Extremities: grossly normal except: noted in the left leg: ROM: intact in all extremities, Circulation is intact in all extremities. Sensation intact. Vital Signs: 22:17 BP 137 / 96; Pulse 75; Resp 18; Temp 98.2; Pulse Ox 97% ; Weight 72.57 kg; Height 5 ft. 2 in. (157.48 cm); 08/20 00:05 BP 154 / 79; Pulse 72; Resp 18; Pulse Ox 96% on R/A; 01:18 BP 138 / 74; Pulse 63; Resp 18; Pulse Ox 97% on R/A; wh 08/19 22:17 Body Mass Index 29.26 (72.57 kg, 157.48 cm) MDM: 08/19 22:25 Patient medically screened. snw 08/20 00:49 Data reviewed: vital signs, nurses notes. Data interpreted: Pulse oximetry: on room air snw is 96 %. Interpretation: acceptable. Counseling: I had a detailed discussion with the patient and/or guardian regarding: the historical points, exam findings, and any diagnostic results supporting the discharge/admit diagnosis, the presence of at least one elevated blood pressure reading (>120/80) during this emergency department visit, lab results, to return to the emergency department if symptoms worsen or persist or if there are any questions or concerns that arise at home. Special discussion: I have referred the patient to see his PCP for further evaluation of high blood pressure. Based on the history and exam findings, there is no indication for further emergent testing or inpatient evaluation. I discussed with the patient/guardian the need to see the primary care provider for further evaluation of the symptoms. 08/19 22:33 Order name: Urine Culture snw 08/19 22:33 Order name: Urine Microscopic Only; Complete Time: 23:15 snw 08/19 22:43 Order name: Urine Dipstick--Ancillary (enter results); Complete Time: 22:59 mt 08/19 22:33 Order name: Urine Dipstick-Ancillary (obtain specimen); Complete Time: 22:42 snw Administered Medications: 08/19 22:55 Drug: Losartan 50 mg Route: PO; 08/20 01:19 Follow up: Response: No adverse reaction; Blood pressure is lowered 08/19 23:45 Drug: Zofran 4 mg Route: PO; 08/20 01:21 Follow up: Response: No adverse reaction; Nausea is decreased 00:37 Drug: TORadol - Ketorolac 15 mg Route: IM; Site: left gluteus; 01:22 Follow up: Response: No adverse reaction; Pain is decreased Disposition: 10:23 Co-signature as Attending Physician, Ki Virk MD I agree with the assessment and kdr plan of care. Disposition: 08/20/19 00:47 Discharged to Home. Impression: Patient's other noncompliance with medication regimen, Radiculopathy, site unspecified, Pain in left leg. - Condition is Stable. - Discharge Instructions: Leg Cramps, Medicine Refill at the Emergency Department, Musculoskeletal Pain, Peripheral Neuropathy, Cryotherapy, Heat Therapy, Radicular Pain. - Medication Reconciliation Form, Thank You Letter, Antibiotic Education, Prescription Opioid Use form. - Follow up: Emergency Department; When: As needed; Reason: Worsening of condition. Follow up: Private Physician; When: 2 - 3 days; Reason: Recheck today's complaints, Continuance of care, Re-evaluation by your physician. Signatures: Dispatcher [employer] EDDE Ki Virk MD MD [facility] Katie Harding, ROPE SILICA MACHINE OPERATOR-C ROPE SILICA MACHINE OPERATOR-Csnw Andi Kim Corrections: (The following items were deleted from the chart) 01:24 00:47 08/20/2019 00:47 Discharged to Home. Impression: Patient's other noncompliance with medication regimen; Radiculopathy, site unspecified; Pain in left leg. Condition is Stable. Discharge Instructions: Peripheral Neuropathy, Radicular Pain. Forms are Medication Reconciliation Form, Thank You Letter, Antibiotic Education, Prescription Opioid Use. Follow up: Emergency Department; When: As needed; Reason: Worsening of condition. Follow up: Private Physician; When: 2 - 3 days; Reason: Recheck today's complaints, Continuance of care, Re-evaluation by your physician. snw
--- NOTE | 2019-08-20 00:49 | ER ---
Nurse's Notes [facility] Name: Shelia Valentine Age: 68 yrs Sex: Female : 1950 Arrival Date: 08/19/2019 Time: 22:06 Bed 14 Private MD: Diagnosis: Patient's other noncompliance with medication regimen;Radiculopathy, site unspecified;Pain in left leg Presentation: 08/19 22:07 Presenting complaint: EMS states: Pt C/O leg pain for a week, now C/O left hip pain and wh back pain that just started. Pt stated she wasn't able to see PCP because of the holidays. Transition of care: patient was not received from another setting of care. Onset of symptoms was August 19, 2019. Risk Assessment: Do you want to hurt yourself or someone else? Patient reports no desire to harm self or others. Initial Sepsis Screen: Does the patient meet any 2 criteria? No. Patient's initial sepsis screen is negative. Does the patient have a suspected source of infection? No. Patient's initial sepsis screen is negative. Care prior to arrival: None. 22:07 Method Of Arrival: EMS: [facility] 22:07 Acuity: ADDI 3 Historical: - Allergies: 22:12 Cipro; 22:12 Codeine; 22:12 Demerol; 22:12 HYDROCODONE; 22:12 Morphine; 22:12 PENICILLINS; 22:12 Sulfa (Sulfonamide Antibiotics); - Home Meds: 22:12 pantoprazole Oral [Active]; losartan oral oral [Active]; amlodipine oral [Active]; - PMHx: 22:12 BRADYCARDIA; GERD; Hypertension; - Immunization history:: Adult Immunizations up to date. - Social history:: Smoking status: Patient/guardian denies using tobacco. - Ebola Screening: : Patient negative for fever greater than or equal to 101.5 degrees Fahrenheit, and additional compatible Ebola Virus Disease symptoms Patient denies exposure to infectious person. Screenin:16 Abuse screen: Denies threats or abuse. Denies injuries from another. Nutritional screening: No deficits noted. Tuberculosis screening: No symptoms or risk factors identified. Fall Risk None identified. Assessment: 22:14 General: Appears in no apparent distress. Behavior is calm, cooperative, appropriate for age. Pain: Complains of pain in left leg and left hip Pain does not radiate. Pain currently is 8 out of 10 on a pain scale. Pain began 1 week ago. Neuro: Level of Consciousness is awake, alert, obeys commands, Oriented to person, place, time, situation, Appropriate for age. Cardiovascular: Capillary refill < 3 seconds. Respiratory: Airway is patent Respiratory effort is even, unlabored, Respiratory pattern is regular, symmetrical. GI: Abdomen is flat, non-distended. : No signs and/or symptoms were reported regarding the genitourinary system. EENT: No signs and/or symptoms were reported regarding the EENT system. Derm: Skin is intact, is healthy with good turgor, Skin is pink, warm \T\ dry. normal. Musculoskeletal: Circulation, motion, and sensation intact. 08/20 00:05 Reassessment: Patient appears in no apparent distress at this time. No changes from previously documented assessment. Patient and/or family updated on plan of care and expected duration. Pain level reassessed. Patient is alert, oriented x 3, equal unlabored respirations, skin warm/dry/pink. 01:18 Reassessment: Patient appears in no apparent distress at this time. No changes from previously documented assessment. Patient and/or family updated on plan of care and expected duration. Pain level reassessed. Patient is alert, oriented x 3, equal unlabored respirations, skin warm/dry/pink. Patient states feeling better. Patient states symptoms have improved. Vital Signs: 08/19 22:17 BP 137 / 96; Pulse 75; Resp 18; Temp 98.2; Pulse Ox 97% ; Weight 72.57 kg; Height 5 ft. 2 in. (157.48 cm); 08/20 00:05 BP 154 / 79; Pulse 72; Resp 18; Pulse Ox 96% on R/A; 01:18 BP 138 / 74; Pulse 63; Resp 18; Pulse Ox 97% on R/A; 08/19 22:17 Body Mass Index 29.26 (72.57 kg, 157.48 cm) ED Course: 08/19 22:06 Patient arrived in ED. 22:08 Triage completed. 22:16 Patient has correct armband on for positive identification. Bed in low position. Call light in reach. Side rails up X 1. Pulse ox on. NIBP on. 22:16 Arm band placed on. 22:19 Katie Harding FNP-C is [facility]. sn 22:19 Ki Virk MD is Attending Physician. formerly [facility] 22:39 Andi Kim is Primary Nurse. 22:44 Urine Culture Sent. ms 22:44 Urine Microscopic Only Sent. ms 23:19 Urine Culture Sent. ds4 08/20 00:57 Oxygen administration via nasal cannula \T\ 3L/min Response to oxygen therapy: symptoms ds4 improved. 01:23 No provider procedures requiring assistance completed. Patient did not have IV access during this emergency room visit. Administered Medications: 08/19 22:55 Drug: Losartan 50 mg Route: PO; 08/20 01:19 Follow up: Response: No adverse reaction; Blood pressure is lowered 08/19 23:45 Drug: Zofran 4 mg Route: PO; 08/20 01:21 Follow up: Response: No adverse reaction; Nausea is decreased 00:37 Drug: TORadol - Ketorolac 15 mg Route: IM; Site: left gluteus; 01:22 Follow up: Response: No adverse reaction; Pain is decreased Outcome: 00:47 Discharge ordered by . snw 01:23 Discharged to home via wheelchair. 01:23 Condition: stable 01:23 Discharge instructions given to patient, Instructed on discharge instructions, follow up and referral plans. POC Peripheral Neuropathy. Pt was ordered taxi by [facility] for transportation Demonstrated understanding of instructions, follow-up care, POC 01:24 Patient left the ED. Signatures: Katie Harding FNP-C UX LEAD-CsnRuss Gill ds4 Julissa Mcghee ms Andi Kim
[2019-08-20 01:29] VITALS: TEMP 98.2
[2019-08-20 01:32] VITALS: BP 138/74; O2SAT 97
== END 2019-08-20 01:24 | disposition home or self-care (01) ==
LOC: ER 21:58
DX: M54.10 Radiculopathy, site unspecified (principal); Z91.14 Patient's other noncompliance with medication regimen; I10 Essential (primary) hypertension; Z88.0 Allergy status to penicillin; Z88.1 Allergy status to other antibiotic agents; Z88.2 Allergy status to sulfonamides; Z88.5 Allergy status to narcotic agent
CPT/HCPCS: 81003; 81015; 87086; 87088; 96372; 99284

== ENCOUNTER 2019-09-22 01:06 | Observation (INO) | payer MEDICARE, OTHER ==
[2019-09-22 01:39] LABS: Absolute Lymphocytes (CBC) 2.4 K/uL (0.7-4.9); Basophils % 0.7 % (0-1.3); Hematocrit 39.5 % (36.0-45.0); MPV 8.3 fL (7.6-11.3); RBC Red Blood Cell Count 4.74 M/uL (3.86-4.86)
[2019-09-22 02:01] LABS: Sodium Level 141 mmol/L (136-145)
[2019-09-22 02:02] LABS: ALT/SGPT 26 U/L (12-78); Albumin 3.3 g/dL (3.4-5.0); Alkaline Phosphatase 75 U/L (45-117); BUN Blood Urea Nitrogen 18 mg/dL (7-18); Bicarbonate 27 mmol/L (21-32); Bilirubin Total 0.3 mg/dL (0.2-1.0); Glucose Level 131 mg/dL (74-106); Lipase 70 U/L (73-393); Protein, Total 7.8 g/dL (6.4-8.2)
[2019-09-22 02:17] LABS: AST/SGOT 27 U/L (15-37); Bilirubin Direct < 0.1 mg/dL (0-0.2); Magnesium 2.2 mg/dL (1.8-2.4); Potassium 4.3 mmol/L (3.5-5.1)
[2019-09-22 02:21] LABS: Troponin I 0.58 ng/mL (0.0-0.045)
[2019-09-22] MEDS ORDERED: FAMOTIDINE 20 MG/2 ML VIAL IV ONE (03:01)
[2019-09-22] MEDS ORDERED: ASPIRIN 81 MG CHEWABLE TABLET ONE (03:01)
[2019-09-22] MEDS ORDERED: NA CHLORIDE 0.9% 500 ML ONE (03:01)
[2019-09-22] MEDS ORDERED: ONDANSETRON 4 MG/2 ML VIAL ONE (03:01)
--- NOTE | 2019-09-22 05:00 | ER ---
Nurse's Notes [facility] Name: Shelia Valentine Age: 68 yrs Sex: Female : 1950 Arrival Date: 09/22/2019 Time: 01:13 Bed 3 Private MD: Diagnosis: Epigastric pain;Elevated Trop Presentation: 09/22 01:05 Presenting complaint: Patient states: that she has been having abd pain x 2 days then fc last night at 2200 she started to nausea and vomiting. Denies any diarrhea or constipation. Transition of care: patient was not received from another setting of care. Onset of symptoms was September 20, 2018. Risk Assessment: Do you want to hurt yourself or someone else? Patient reports no desire to harm self or others. Initial Sepsis Screen: Does the patient meet any 2 criteria? No. Patient's initial sepsis screen is negative. Does the patient have a suspected source of infection? No. Patient's initial sepsis screen is negative. Care prior to arrival: None. 01:05 Method Of Arrival: EMS: [facility] fc 01:05 Acuity: ADDI 3 fc Historical: - Allergies: 01:19 Cipro; fc 01:19 Demerol; fc 01:19 HYDROCODONE; fc 01:19 Codeine; fc 01:19 PENICILLINS; fc 01:19 Sulfa (Sulfonamide Antibiotics); fc 01:19 Morphine; fc - Home Meds: 01:25 meloxicam 7.5 mg oral tab 1 tab twice a day [Active]; lisinopril 20 mg Oral tab 1 tab fc twice daily [Active]; pantoprazole 40 mg oral TbEC 1 tab once daily [Active]; - PMHx: 01:19 BRADYCARDIA; GERD; Hypertension; fc 01:25 High Cholesterol; Sleep Apnea; Osteoporosis; chest pain; CAD; Kidney stones; fc Pancreatitis; - PSHx: 01:19 Cholecystectomy; ; pacemaker; fc - Immunization history:: Last tetanus immunization: unknown, Flu vaccine is up to date. - Social history:: Smoking status: Patient/guardian denies using tobacco, Patient/guardian denies using alcohol, street drugs. - Ebola Screening: : Patient negative for fever greater than or equal to 101.5 degrees Fahrenheit, and additional compatible Ebola Virus Disease symptoms Patient denies exposure to infectious person Patient denies travel to an Ebola-affected area in the 21 days before illness onset. Screenin:05 Abuse screen: Denies threats or abuse. Nutritional screening: No deficits noted. Tuberculosis screening: No symptoms or risk factors identified. Fall Risk None identified. Assessment: 01:13 General: Appears in no apparent distress. uncomfortable, Behavior is calm, cooperative, jd3 appropriate for age. Pain: Complains of pain in right upper quadrant and left upper quadrant Quality of pain is described as sharp, tender. Neuro: Level of Consciousness is awake, alert, obeys commands, Oriented to person, place, time, situation. Cardiovascular: Denies chest pain, Capillary refill < 3 seconds Patient's skin is warm and dry. Respiratory: Airway is patent Respiratory effort is even, unlabored, Respiratory pattern is regular, symmetrical, Denies cough, shortness of breath. GI: Abdomen is round non-distended, Abd is soft X 4 quads Abdomen is tender to palpation in right upper quadrant and left upper quadrant Reports upper abdominal pain, nausea, vomiting, Patient currently denies constipation, diarrhea. : Reports burning with urination. EENT: No signs and/or symptoms were reported regarding the EENT system. Derm: Skin is intact, Skin is dry, Skin is normal, Skin temperature is warm. Musculoskeletal: Circulation, motion, and sensation intact. Range of motion: intact in all extremities. 02:15 Reassessment: Patient appears in no apparent distress at this time. No changes from jd3 previously documented assessment. Patient and/or family updated on plan of care and expected duration. Pain level reassessed. Patient is alert, oriented x 3, equal unlabored respirations, skin warm/dry/pink. 03:14 Reassessment: Patient appears in no apparent distress at this time. No changes from jd3 previously documented assessment. Patient and/or family updated on plan of care and expected duration. Pain level reassessed. Patient is alert, oriented x 3, equal unlabored respirations, skin warm/dry/pink. 04:41 Reassessment: Patient appears in no apparent distress at this time. Patient and/or jd3 family updated on plan of care and expected duration. Pain level reassessed. Patient is alert, oriented x 3, equal unlabored respirations, skin warm/dry/pink. pt resting in bed with eyes closed, even and unlabored respirations. call guadalupe in reach, awaiting disposition. Patient states feeling better. 05:29 Reassessment: Patient appears in no apparent distress at this time. No changes from jd3 previously documented assessment. Patient and/or family updated on plan of care and expected duration. Pain level reassessed. Patient is alert, oriented x 3, equal unlabored respirations, skin warm/dry/pink. Patient states feeling better. 06:04 Reassessment: Patient appears in no apparent distress at this time. No changes from jd3 previously documented assessment. Patient and/or family updated on plan of care and expected duration. Pain level reassessed. Patient is alert, oriented x 3, equal unlabored respirations, skin warm/dry/pink. report given to Susana PEACE. Vital Signs: 01:05 BP 163 / 95; Pulse 69; Resp 18; Temp 98(O); Pulse Ox 98% on R/A; Weight 72.57 kg (R); fc Height 5 ft. 0 in. (152.40 cm) (R); Pain 9/10; 03:14 BP 118 / 66; Pulse 99; Resp 15 S; Pulse Ox 97% on R/A; jd3 04:42 BP 115 / 64; Pulse 60; Resp 16 S; Pulse Ox 96% on R/A; jd3 05:30 BP 102 / 63; Pulse 60; Resp 15 S; Pulse Ox 97% on R/A; jd3 01:05 Body Mass Index 31.25 (72.57 kg, 152.40 cm) ED Course: 01:05 Arm band placed on Patient placed in an exam room, on a stretcher. fc 01:13 Patient arrived in ED. fc 01:13 Meek Borges, KOBI is Primary Nurse. jd3 01:13 Miguel Delacruz PA is PHCP. cp 01:13 Mario Alberto Tovar MD is Attending Physician. cp 01:15 Triage completed. fc 01:15 Patient has correct armband on for positive identification. Placed in gown. Bed in low jd3 position. Call light in reach. Side rails up X2. 01:15 Arm band placed on. jd3 01:27 Initial lab(s) drawn, by me, sent to lab. Missed attempt(s): 22 gauge in left lp1 antecubital area. Missed attempt(s): 22 gauge in right forearm. 01:53 Radiology exam delayed due to lab results not completed at this time. (BUN/Creatinine). kw1 02:12 Radiology exam delayed due to IV insertion attempt and/or patient not having kw1 appropriate IV at this time. 02:24 Accessed peripheral vein via ultrasound, utilizing dynamic ultrasound technique using jd3 ,sterile technique, per hospital protocol. Clean \T\ dry. Dressing intact. Good blood return. Flushes easily. 22 G right AC. 02:40 Radiology exam delayed due to IV insertion attempt and/or patient not having kw1 appropriate IV at this time. 03:00 Inserted 18 gauge 10 cm midline to left upper basilic vein on first attempt. Line with fc good blood return and flushes well. 03:04 CXR XRAY In Process Unspecified. EDMS 04:01 CT Abd/Pelvis - IV Contrast Only In Process Unspecified. EDMS 04:46 Yolette Mora MD is Hospitalizing Provider. fc 06:05 No provider procedures requiring assistance completed. Patient admitted, IV remains in jd3 place. Administered Medications: 03:13 Drug: Aspirin Chewable Tablet 324 mg Route: PO; jd3 06:06 Follow up: Response: No adverse reaction jd3 03:13 Drug: NS 0.9% 500 ml Route: IV; Rate: bolus; Site: left upper arm; jd3 06:06 Follow up: Response: No adverse reaction; IV Status: Completed infusion; IV Intake: jd3 500ml 03:14 Drug: Zofran 4 mg Route: IVP; Site: left upper arm; jd3 06:06 Follow up: Response: No adverse reaction jd3 03:14 Drug: Pepcid 20 mg Route: IVP; Site: left upper arm; jd3 06:06 Follow up: Response: No adverse reaction jd3 Intake: 06:06 IV: 500ml; Total: 500ml. jd3 Outcome: 04:47 Decision to Hospitalize by Provider. fc 06:05 Condition: stable jd3 06:05 Instructed on the need for admit, Demonstrated understanding of instructions. 06:12 Admitted to Tele accompanied by tech, via stretcher, room 412, with chart, Report jd3 called to Susana PEACE 06:12 Patient left the ED. jd3 Signatures: Dispatcher [employer] EDMS Lilia Clement RN RN Charlene Spann RN RN lp1 Miguel Delacruz PA PA cp Davies, Jonathon, RN RN jd3 Cele Boss kw1 Corrections: (The following items were deleted from the chart) : Home Meds: lisinopril 20 mg Oral tab twice daily; fc : Home Meds: pantoprazole Oral; [facility] : Home Meds: meloxicam oral oral; [facility]
--- NOTE | 2019-09-22 05:02 | EDPHYS ---
Physician Documentation [facility] Name: Shelia Valentine Age: 68 yrs Sex: Female : 1950 Arrival Date: 09/22/2019 Time: 01:13 Bed 3 Private MD: ED Physician Mario Alberto Tovar HPI: 09/22 01:15 This 68 yrs old Female presents to ER via EMS with complaints of Abdominal cp Pain, Nausea/Vomiting. 01:15 The patient presents with abdominal pain in the epigastric area, in the upper abdomen. cp 01:15 Onset: The symptoms/episode began/occurred 2 day(s) ago, and became worse last night. cp 01:15 Associated signs and symptoms: Pertinent positives: nausea and vomiting, Pertinent cp negatives: chest pain, constipation, diarrhea, fever, vomiting blood. Historical: - Allergies: 01:19 Cipro; fc 01:19 Demerol; fc 01:19 HYDROCODONE; fc 01:19 Codeine; fc 01:19 PENICILLINS; fc 01:19 Sulfa (Sulfonamide Antibiotics); fc 01:19 Morphine; fc - Home Meds: 01:25 meloxicam 7.5 mg oral tab 1 tab twice a day [Active]; lisinopril 20 mg Oral tab 1 tab fc twice daily [Active]; pantoprazole 40 mg oral TbEC 1 tab once daily [Active]; - PMHx: 01:19 BRADYCARDIA; GERD; Hypertension; fc 01:25 High Cholesterol; Sleep Apnea; Osteoporosis; chest pain; CAD; Kidney stones; fc Pancreatitis; - PSHx: 01:19 Cholecystectomy; ; pacemaker; fc - Immunization history:: Last tetanus immunization: unknown, Flu vaccine is up to date. - Social history:: Smoking status: Patient/guardian denies using tobacco, Patient/guardian denies using alcohol, street drugs. - Ebola Screening: : Patient negative for fever greater than or equal to 101.5 degrees Fahrenheit, and additional compatible Ebola Virus Disease symptoms Patient denies exposure to infectious person Patient denies travel to an Ebola-affected area in the 21 days before illness onset. ROS: 01:20 Constitutional: Negative for body aches, chills, fever. cp 01:20 Eyes: Negative for injury, pain, redness, and discharge. cp 01:20 ENT: Negative for drainage from ear(s), ear pain, sore throat, difficulty swallowing, difficulty handling secretions. 01:20 Cardiovascular: Negative for chest pain. 01:20 Respiratory: Negative for cough, shortness of breath, wheezing. 01:20 Abdomen/GI: Positive for abdominal pain, nausea and vomiting, Negative for dysphagia, hematemesis, black/tarry stool, rectal bleeding. 01:20 Back: Negative for radiated pain. 01:20 : Negative for urinary symptoms. 01:20 Skin: Negative for rash. 01:20 Neuro: Negative for altered mental status, headache, syncope, weakness. 01:20 All other systems are negative. Exam: 01:27 Constitutional: The patient appears in no acute distress, alert, awake, cp non-diaphoretic, non-toxic, well developed, well nourished, uncomfortable. 01:27 Head/Face: Normocephalic, atraumatic. cp 01:27 Eyes: Periorbital structures: appear normal, Conjunctiva: normal, no exudate, no injection, Sclera: no appreciated abnormality, Lids and lashes: appear normal, bilaterally. 01:27 ENT: External ear(s): are unremarkable, Nose: is normal, Mouth: Lips: moist, Oral mucosa: moist, Posterior pharynx: Airway: no evidence of obstruction, patent. 01:27 Neck: ROM/movement: is normal, is supple, no meningismus, no nuchal rigidity. 01:27 Chest/axilla: Inspection: normal, Palpation: is normal, no crepitus, no tenderness. 01:27 Cardiovascular: Rate: normal, Rhythm: regular, Edema: is not appreciated, JVD: is not appreciated. 01:27 Respiratory: the patient does not display signs of respiratory distress, Respirations: normal, no use of accessory muscles, no retractions, no splinting, no tachypnea, labored breathing, is not present, Breath sounds: are clear throughout, no decreased breath sounds, no stridor, no wheezing. 01:27 Abdomen/GI: Inspection: scar(s), are noted in the mid line lower abdomen, Bowel sounds: active, all quadrants, Palpation: soft, in all quadrants, severe abdominal tenderness, in the epigastric area, rebound tenderness, is not appreciated, voluntary guarding, is elicited in the epigastric area. 01:27 Back: pain, is absent. 01:27 Skin: no rash present. 01:27 Neuro: Orientation: to person, place \T\ time. Mentation: is normal, Motor: moves all fours, strength is normal, Sensation: is normal. 01:47 ECG was reviewed by the Attending Physician. Vital Signs: 01:05 BP 163 / 95; Pulse 69; Resp 18; Temp 98(O); Pulse Ox 98% on R/A; Weight 72.57 kg (R); fc Height 5 ft. 0 in. (152.40 cm) (R); Pain 9/10; 03:14 BP 118 / 66; Pulse 99; Resp 15 S; Pulse Ox 97% on R/A; jd3 04:42 BP 115 / 64; Pulse 60; Resp 16 S; Pulse Ox 96% on R/A; jd3 05:30 BP 102 / 63; Pulse 60; Resp 15 S; Pulse Ox 97% on R/A; jd3 01:05 Body Mass Index 31.25 (72.57 kg, 152.40 cm) fc MDM: 01:18 Patient medically screened. cp 01:30 Differential diagnosis: AAA, acute coronary syndrome, bowel obstruction, gastritis, GI cp Bleed, pancreatitis, Peptic Ulcer Disease, Perf. Duodenal Ulcer, Perf. Gastric Ulcer, Pyelonephritis, urinary tract infection. 03:15 Data reviewed: vital signs, nurses notes, lab test result(s), EKG, I have discussed the cp patient's presentation/case with the attending Emergency Department Physician;. 03:15 Transition of care: After a detail discussion of the patient's case, care is cp transferred to Mario Alberto Tovar MD. 09/22 01:15 Order name: Basic Metabolic Panel cp 09/22 01:15 Order name: CBC with Diff cp 09/22 01:15 Order name: Creatinine for Radiology cp 09/22 01:15 Order name: Hepatic Function cp 09/22 01:15 Order name: Lipase cp 09/22 01:15 Order name: Troponin I cp 09/22 01:15 Order name: Magnesium cp 09/22 01:45 Order name: CBC with Automated Diff; Complete Time: 02:27 EDMS 09/22 02:02 Order name: Creatinine (Radiology Only); Complete Time: 02:27 EDMS 09/22 02:27 Interpretation: Normal except: GFR 52. cp 09/22 02:03 Order name: Basic Metabolic Panel; Complete Time: 02:27 EDMS 09/22 02:28 Interpretation: Normal except: GLUC 131; GFR 57. cp 09/22 02:03 Order name: Liver (Hepatic) Function; Complete Time: 02:27 EDMS 09/22 03:02 Interpretation: Normal except: ALB 3.3; GLOB 4.5; A/G 0.7. cp 09/22 02:03 Order name: Lipase; Complete Time: 02:27 EDMS 09/22 02:22 Order name: Troponin I; Complete Time: 02:27 EDMS 09/22 02:28 Interpretation: Abnormal: TROP 0.58. cp 09/22 02:22 Order name: Magnesium; Complete Time: 02:27 EDMA 09/22 01:15 Order name: EKG; Complete Time: 01:20 cp 09/22 01:15 Order name: CXR XRAY 09/22 01:15 Order name: CT Abd/Pelvis - IV Contrast Only 09/22 02:30 Order name: Urine Microscopic Only 09/22 06:00 Order name: CONS Physician Consult EDMA 09/22 06:00 Order name: Heart Healthy EDMA 09/22 06:00 Order name: Echo with Doppler EDMA 09/22 06:01 Order name: Lipid Profile EDMA 09/22 06:01 Order name: Lipid Profile EDMA 09/22 06:01 Order name: Troponin I EDMA 09/22 06:01 Order name: Troponin I EDMA 09/22 06:01 Order name: Troponin I EDMA 09/22 01:15 Order name: IV Saline Lock; Complete Time: 02:39 09/22 01:15 Order name: Labs collected and sent; Complete Time: 01:28 cp 09/22 01:15 Order name: EKG - Nurse/Tech; Complete Time: 01:45 cp 09/22 06:00 Order name: EKG Electrocardiogram EDMA 09/22 06:00 Order name: EKG Electrocardiogram EDMA EC:47 Rate is 69 beats/min. Rhythm is regular, Paced. [place] interval is prolonged at 220 msec. cp QRS interval is prolonged at 158 msec. QT interval is prolonged at 518 msec. T waves are Inverted in leads I, II, aVL, V4, V5, V6. Interpreted by me. Reviewed by me. Administered Medications: 03:13 Drug: Aspirin Chewable Tablet 324 mg Route: PO; jd3 06:06 Follow up: Response: No adverse reaction jd3 03:13 Drug: NS 0.9% 500 ml Route: IV; Rate: bolus; Site: left upper arm; jd3 06:06 Follow up: Response: No adverse reaction; IV Status: Completed infusion; IV Intake: jd3 500ml 03:14 Drug: Zofran 4 mg Route: IVP; Site: left upper arm; jd3 06:06 Follow up: Response: No adverse reaction jd3 03:14 Drug: Pepcid 20 mg Route: IVP; Site: left upper arm; jd3 06:06 Follow up: Response: No adverse reaction jd3 Disposition: 19:02 Co-signature as Attending Physician, Mario Alberto Tovar MD Available for consultation at ps1 all times. Signing chart for administrative purposes. Not an endorsement of care. . Disposition: 09/22/19 04:47 Hospitalization ordered by Yolette Mora for Observation. Preliminary diagnosis are Epigastric pain, Elevated Trop. - Bed requested for Telemetry/MedSurg (observation). - Status is Observation. jd3 - Condition is Stable. - Problem is new. - Symptoms are unchanged. UTI on Admission? No Signatures: Dispatcher [employer] EDMS Radha Melendez RN RN mw Chretien, Felicia, RN RN fc Page, Corey, PA PA cp Davies, Jonathon, RN RN jd3 Singer, Phillip, MD MD ps1 Corrections: (The following items were deleted from the chart) 01: 01:19 Home Meds: lisinopril 20 mg Oral tab twice daily; [facility] :25 01:19 Home Meds: pantoprazole Oral; [facility] :25 01:19 Home Meds: meloxicam oral oral; [facility] 01:51 01:15 Onset: The symptoms/episode began/occurred yesterday, cp cp 05:52 04:47 Hospitalization Ordered by Yolette Mora MD for Observation. Preliminary mw diagnosis is Epigastric pain; Elevated Trop. Bed requested for Telemetry/MedSurg (observation). Status is Observation. Condition is Stable. Problem is new. Symptoms are unchanged. UTI on Admission? No. 06:12 05:52 09/22/2019 04:47 Hospitalization Ordered by Yolette Mora MD for Observation. jd3 Preliminary diagnosis is Epigastric pain; Elevated Trop. Bed requested for Telemetry/MedSurg (observation). Status is Observation. Condition is Stable. Problem is new. Symptoms are unchanged. UTI on Admission? No. mw
[2019-09-22] MEDS ORDERED: MORPHINE 4 MG/ML SYR IV PRN (05:52)
[2019-09-22] MEDS ORDERED: ALPRAZOLAM 0.25 MG TABLET PO PRN (05:52)
[2019-09-22 06:53] VITALS: BMI 33.6
--- NOTE | 2019-09-22 07:09 | P.HP ---
Certification for Inpatient Patient admitted to: Observation With expected LOS: <2 Midnights Patient will require the following post-hospital care: None Practitioner: I am a practitioner with admitting privileges, knowledge of patient current condition, hospital course, and medical plan of care. Services: Services provided to patient in accordance with Admission requirements found in Title 42 Section 412.3 of the Code of Federal Regulations Patient History Date of Service: 09/22/19 Reason for admission: Epigastric tenderness/chest pain/elevated troponin History of Present Illness: Patient is a 68-year-old female who comes into the hospital with what she feels is epigastric tenderness. She has been feeling the pain for the last few days. It has gotten significantly worse so she came to the hospital for further evaluation. In the emergency room, she was given pain medication and she got minimal relief. She was sleeping, and she appears to have sleep apnea as she becomes hypoxic and holds her breath for quite a while. When I woke her up to talk to her she did mention that she is having significant epigastric tenderness. She does not state that this in the chest. She has cardiac issues including Coronary artery disease, as well as bradycardia which required pacemaker placement. In the emergency room her troponins were found to be elevated, and this is what led the ER physician to proceed to admission. Currently, she is asymptomatic. She is not short of breath nor is she having any chest pain. No radiation to the arm. She does describe some epigastric tenderness which is not reproducible. She will be admitted to the hospital for further evaluation. Allergies codeine [Codeine] Allergy (Mild, Verified 09/22/19 06:34) Hives/Rash Penicillins Allergy (Mild, Verified 09/22/19 06:34) Hives/Rash meperidine [From Demerol] Allergy (Verified 09/22/19 06:34) Unknown morphine Allergy (Verified 09/22/19 06:34) Nausea/Vomiting ciprofloxacin [From Cipro] Adverse Reaction (Mild, Verified 09/22/19 06:34) Itching/Hives/Rash hydrocodone Adverse Reaction (Mild, Verified 09/22/19 06:34) Nausea/Vomiting Sulfa (Sulfonamide Antibiotics) [Sulfa(Sulfonamide Antibiotics)] Adverse Reaction (Mild, Verified 09/22/19 06:34) vomitting Home Medications: lisinopriL [Prinivil*] 20 mg PO BID 09/21/15 Aspirin [Aspirin EC 81 MG] 81 mg PO DAILY #90 tablet. 02/26/18 Pantoprazole [Protonix Tab*] 40 mg PO DAILY #30 tab 02/26/18 - Past Medical/Surgical History Has patient received pneumonia vaccine in the past: No Diabetic: No -: CAD, Cardiology-Dr. Rodgers -: GERD with hiatal hernia -: HTN -: Cervical Radiculopathy 2013 -: Bradycardia, pacemaker placement -: History of pancreatitis -: Liver cyst -: Left adrenal adenoma -: Left ovarian cyst -: Pacemaker placement -: Cholecystectomy -: x4 Psychosocial/ Personal History: . She currently lives by herself. She has 3 children. - Family History Mother Medical History: Hypertension, Diabetes Notes: obese - Social History Smoking Status: Former smoker Alcohol use: No CD- Drugs: No Caffeine use: Yes Place of Residence: Home Review of Systems 10-point ROS is otherwise unremarkable Physical Examination - Vital Signs Temperature: 97.3 F Blood Pressure: 141/72 Pulse: 65 Respirations: 16 Pulse Ox (%): 95 - Physical Exam General: Alert, In no apparent distress, Oriented x3 HEENT: Atraumatic, PERRLA, Mucous membr. moist/pink, EOMI, Sclerae nonicteric Neck: Supple, 2+ carotid pulse no bruit, No LAD, Without JVD or thyroid abnormality Respiratory: Clear to auscultation bilaterally, Normal air movement Cardiovascular: Regular rate/rhythm, Normal S1 S2 Gastrointestinal: Normal bowel sounds, Soft and benign, Non-distended, No rebound, No guarding, Tenderness (Epigastric tenderness) Musculoskeletal: No clubbing, No swelling, No tenderness Integumentary: No rashes Neurological: Normal gait, Normal speech, Normal strength at 5/5 x4 extr, Normal tone, Sensation intact, Cranial nerves 3-12 intact, Normal affect Lymphatics: No axilla or inguinal lymphadenopathy - Studies Laboratory Data (last 24 hrs) 09/22/19 01:23: Creatinine 1.06 09/22/19 01:23: WBC 8.5, Hgb 12.8, Hct 39.5, Plt Count 209 09/22/19 01:23: Sodium 141, Potassium 4.3, BUN 18, Creatinine 0.97, Glucose 131 H, Magnesium 2.2, Total Bilirubin 0.3, AST 27, ALT 26, Alkaline Phosphatase 75, Troponin I 0.58 H*, Lipase 70 L Assessment & Plan - Problems (Diagnosis) (1) Chest pain, rule out acute myocardial infarction Current Visit: Yes Status: Acute (2) GERD (gastroesophageal reflux disease) Onset Date: 09/22/15 Current Visit: No Status: Chronic Qualifiers: Esophagitis presence: without esophagitis Qualified Code(s): K21.9 - Gastro -esophageal reflux disease without esophagitis (3) HTN (hypertension) Onset Date: 09/22/15 Current Visit: No Status: Chronic Qualifiers: Hypertension type: essential hypertension (4) History of coronary artery disease Current Visit: No Status: Chronic (5) History of permanent cardiac pacemaker placement Current Visit: No Status: Chronic (6) Obesity Current Visit: No Status: Chronic Qualifiers: Obesity type: due to excess calories Obesity classification: adult class 1 (BMI 30 - 34.9) Serious obesity comorbidity presence: with serious comorbidity Body mass index: BMI 33.0-33.9 Qualified Code(s): E66.09 - Other obesity due to excess calories; Z68.33 - Body mass index (BMI) 33.0-33.9, adult (7) Renal calculi Current Visit: No Status: Chronic (8) Gastritis Current Visit: No Status: Suspected Qualifiers: Gastritis type: unspecified gastritis Chronicity: unspecified Gastritis bleeding: without bleeding Qualified Code(s): K29.70 - Gastritis, unspecified , without bleeding (9) Obstructive sleep apnea Current Visit: No Status: Suspected - Plan 1. Serial troponins and EKG 2. Cardiology consultation 3. Will discuss with Cardiology if patient needs any further workup. Most likely this is gastroesophageal reflux disease or gastritis. Will place patient on a PPI twice daily. She may need further workup with the GI. 4. Anti-platelet therapy, anti coagulation, beta-machelle, statin, and O2 as needed 5. IV morphine for pain 6. Nitro p.r.n. Discharge Plan: Home Plan to discharge in: 24 Hours - Advance Directives Does patient have a Living Will: No Does patient have a Durable POA for Healthcare: No - Code Status/Comfort Care Code Status Assessed: Yes Code Status: Full Code Critical Care: No Time Spent Managing PTS Care (In Minutes): 45
[2019-09-22] MEDS: ACETAMINOPHEN 500 MG TAB PO PRN ×2 (07:22→20:53)
[2019-09-22] MEDS: ONDANSETRON 4 MG/2 ML VIAL IV PRN ×3 (07:22→19:57)
[2019-09-22] MEDS: METOPROLOL TAR 50 MG TAB PO SCH ×2 (08:19→20:51)
[2019-09-22] MEDS: PANTOPRAZOLE 40MG TABLET PO SCH ×2 (08:19→17:21)
[2019-09-22] MEDS: ENOXAPARIN 40 MG/0.4 ML SQ SCH (08:19)
[2019-09-22] MEDS: ASPIRIN EC 81 MG TAB PO SCH (08:19)
[2019-09-22] MEDS: lisinopriL 10 MG TAB PO SCH ×2 (08:31→20:52)
--- NOTE | 2019-09-22 08:41 | RAD REPORT ---
EXAM DESCRIPTION: RAD - Chest Single View - 09/22/2019 2:44 am CLINICAL HISTORY: Abdominal pain, epigastric pain, history bradycardia, hypertension and coronary ar kadi disease COMPARISON: November 2018 TECHNIQUE: AP portable chest image was obtained 0240 hours . FINDINGS: Lung volumes are low. No focal mass or consolidation. Interstitial pattern matches compari son. Pacemaker is in place. Heart and vasculature are normal. No measurable pleural effusion and no p neumothorax. No acute bony abnormality seen. No acute aortic findings suspected. IMPRESSION: No acute cardiopulmonary process. No significant interval change.
[2019-09-22] MEDS ORDERED: ASPIRIN EC 81 MG TAB PO SCH (09:00)
[2019-09-22 10:26] LABS: Urine Appearance CLEAR; Urine Bilirubin NEGATIVE (NEG); Urine Blood TRACE (NEG); Urine Color YELLOW; Urine Glucose NEGATIVE (NEG); Urine Protein 1+ (NEG); Urine Specific Gravity >=1.030 (1.005-1.030); Urine Urobilinogen 0.2 mg/dL (0.2-1.0); Urine pH 5.5 (5.0-7.0)
[2019-09-22 10:27] LABS: Urine Microscopic Reflex ORDER UMIC
[2019-09-22 10:52] LABS: Urine Bacteria <20 /HPF (<20); Urine Culture Reflex Order NOT NEEDED; Urine RBC <5 /HPF (NONE SEEN)
[2019-09-22] MEDS ORDERED: TRAMADOL HCL 50 MG TAB PO PRN (12:17)
--- NOTE | 2019-09-22 14:50 | EKG ---
Test Date: 2019-09-22 Test Time: 01:35:00 Trans Router: ENRIKE MEASUREMENT RESULTS: Intervals: Rate: 69 WA: 220 QRSD: 158 QT: 518 QTc: 555 [place]: P: 55 WA: 220 QRS: 97 T: 206 INTERPRETIVE STATEMENTS: Atrial-sensed ventricular-paced rhythm with prolonged AV conduction Abnormal ECG Compared to ECG 05/11/2019 15:39:03 Sinus rhythm no longer present First degree AV block no longer present Ventricular premature complex(es) no longer present Electronically Signed On 09-22-19 14:50:13 [employer] by Sukhjinder Darnell
--- NOTE | 2019-09-22 18:04 | CON ---
Date of Consultation: 09/22/2019 She was admitted by Dr. Osorio on 09/22/2019. I saw her on 09/22/2019. Reason For Consultation: Elevated troponin. History Of Present Illness: Ms. Valentine is a 68-year-old, has a history of permanent pacemaker placem ent by Dr. Rodgers. She has a history of dyslipidemia, hypertension, mild coronary artery disease, ga stroesophageal reflux disease. Came in with what sounds like a viral gastroenteritis with nausea, vo miting, left lateral abdominal pain, some fever. No chills. Denied any chest pain. Denied any PND, orthopnea, pedal edema, palpitation, or syncope. Her troponin was 0.57, otherwise the rest of her b lood work was unremarkable. She is asymptomatic now. Allergies: TO CIPROFLOXACIN, CODEINE, PENICILLIN, DEMEROL, AND SULFA. Medications: Her home medications include lisinopril, Protonix, and Mobic. Social History: Negative. Family History: Negative. Review of Systems: Negative. Physical Examination: General: She appeared to be in no acute distress. She was in a paced rhythm, afebrile. HEENT: Negative. Neck: Supple with no bruit. Chest: Clear. Cardiac: Revealed a paced rhythm. No murmurs, gallops, or rubs. Abdomen: Benign. Extremities: Revealed no clubbing, cyanosis, or edema. Diagnostic Data: Listed earlier. Impression And Plan: Elevated troponin, possibly secondary to viral gastroenteritis or colitis. We are not dealing with an acute coronary syndrome. She has a paced rhythm on her EKG and is difficult to see any ischemia on it because of the pacemaker. The patient is to be treated for viral gastroent eritis. She needs to be hydrated. Her medication needs to be continued. I do not think she needs a [place] acute cardiac workup, but I will check the office and see when the last time she had a stress test and an echocardiogram. I will make sure we see her in the office in the next 1 or 2 weeks. Her blo od pressure, dyslipidemia, and gastroesophageal reflux disease are well controlled. She has mild cor onary artery disease. We will continue to follow. She can go home from my standpoint. I will see h er in the office in 2 weeks. MARIA LUISA/STEPHANIE Voice ID: [id number] Report ID: [id number]
[2019-09-22] MEDS ORDERED: PNEUMOCOCCAL VACCINE 0.5 ML IMVAC ONE (21:00)
[2019-09-23] MEDS: PANTOPRAZOLE 40MG TABLET PO SCH (08:01)
[2019-09-23] MEDS: ENOXAPARIN 40 MG/0.4 ML SQ SCH (08:01)
[2019-09-23] MEDS: lisinopriL 10 MG TAB PO SCH (08:01)
[2019-09-23] MEDS: ASPIRIN EC 81 MG TAB PO SCH (08:01)
[2019-09-23] MEDS: METOPROLOL TAR 50 MG TAB PO SCH (08:02)
[2019-09-23 11:34] LABS: Absolute Lymphocytes (CBC) 1.9 K/uL (0.7-4.9); Basophils % 0.5 % (0-1.3); Hematocrit 36.6 % (36.0-45.0); Lymphocytes % 30.3 % (15.3-44.8); MPV 8.1 fL (7.6-11.3); RBC Red Blood Cell Count 4.34 M/uL (3.86-4.86)
[2019-09-23 11:47] LABS: Albumin 2.8 g/dL (3.4-5.0); Bilirubin Total 0.2 mg/dL (0.2-1.0); Protein, Total 6.6 g/dL (6.4-8.2)
[2019-09-23 11:50] VITALS: O2SAT 96
[2019-09-23 12:25] VITALS: BP 129/62; TEMP 97.5
--- NOTE | 2019-09-23 22:55 | DS ---
Date of Discharge: 09/23/2019 Discharge Diagnoses: 1.Chest pain, rule out myocardial infarction. 2.Elevated troponin. 3.Lower back pain. 4.Hypertension. 5.Viral gastroenteritis, resolved. 6.Mild anemia. 7.Mild renal insufficiency. Consult: Cardiology. Procedures: 1.CT of the abdomen and pelvis without evidence of any acute process on preliminary. 2.Chest x-ray negative. For history of present illness please refer to Dr. Mora's admission note. Hospital Course: Initially, patient presented to the hospital with history of epigastric tenderness that lasted a few days. In the ER, she was evaluated, she was found to have mild bradycardia. Her t roponin was elevated at 0.58. Three sets were ordered and she was going down to 0.[address] Kirby land was seeing the patient and he advised patient has viral gastroenteritis and he advised to disc harge her and follow up with him in the office for outpatient workup. In the meantime, I advised pat ient strongly to avoid any exertion until she has met Dr. Darnell and finished her cardiac workup. S he continued to have epigastric pain improved, but she continued to have lower back pain. She could not tolerate any pain medication due to her allergy and nausea and she was only able to tolerate Tyle nol and her back pain improved. She was able to ambulate nicely. She will be discharged today in st able condition. I advised her that if her back pain continued, to follow up with primary care physic douglas as outpatient and order MRI of the back. In the meantime, she will see Dr. Darnell. He said he will arrange for an appointment and she will avoid exertion until she sees him and finish her cardiac workup. Discharge Condition: Stable. Discharge Diet: Cardiac. Discharge Followup: With Dr. Darnell as he advised. Follow up with primary care physician on Tuesday and arrange for an MRI of the back if the back pain is not any better. Avoid exertion. Discharge Condition: Stable. Discharge Physical Examination: Vital Signs: Blood pressure is 137/66, respiratory rate 18, pulse 6 0, temperature 96.9. She is saturating 98 on room air. General: She is alert and oriented x3. Does not look in any distress. HEENT: Atraumatic, normocephalic. PERRLA. Oral mucosa is moist. Neck: Supple. No JVD. No bruit. Chest: Clear to auscultation. Good air entry. Heart: Regular rate and rhythm. S1, S2 normal. No gallop. Abdomen: Soft, nontender with no hepatosplenomegaly. Positive bowel sounds. Extremities: No clubbing, cyanosis, or edema. No calf tenderness noted. Neurologic: Grossly intact. Discharge Medications: Lisinopril 20 mg twice a day, Meloxicam 7.5 mg twice a day, Protonix 40 mg da eun. MT/MODL Voice ID: [id number] Report ID: [id number]
--- NOTE | 2019-09-24 13:43 | RAD REPORT ---
EXAM DESCRIPTION: CT - Abdomen Pelvis W Contrast - 09/22/2019 5:21 am CLINICAL HISTORY: The patient is 68 years old and is Female; Epigastric pain;Nausea / vomiting TECHNIQUE: Axial computed tomography images of the abdomen and pelvis with intravenous contrast. S agittal and coronal reformatted images were created and reviewed. This CT exam was performed using one or more of the following dose reduction techniques: automated exposure control, adjustment of t he mA and/or kV according to patient size, and/or use of iterative reconstruction technique. COMPARISON: CT of the abdomen and pelvis September 05, 2018 FINDINGS: ARTIFACTS: The exam is suboptimal secondary to motion artifact. LUNG BASES: Minimal dependent densities in the lung bases are present. MEDIASTINUM: A small hiatal hernia is present. ABDOMEN: LIVER: A 2.4 cm cyst within the right hepatic lobe is present. The liver is otherwise unremarkab le. GALLBLADDER AND BILE DUCTS: Surgical clips are present in the right upper quadrant, consistent w ith previous cholecystectomy. PANCREAS: No ductal dilation. No mass. SPLEEN: Unremarkable. ADRENALS: Unremarkable. No mass. KIDNEYS AND URETERS: Unremarkable. The kidneys enhance symmetrically. No obstructing renal or ur eteral calculus is seen. No hydronephrosis or hydroureter. No perinephric fluid or stranding. STOMACH AND BOWEL: The stomach is moderately distended. The small bowel is normal in caliber. St ool is present throughout colon. There is no mucosal thickening or evidence of bowel obstruction. PELVIS: APPENDIX: The appendix is normal in caliber without surrounding inflammation. BLADDER: Unremarkable. No mass. REPRODUCTIVE: A 1.5 cm left ovarian cyst is present. No follow-up imaging is recommended. The ut erus and right ovary are normal. ABDOMEN and PELVIS: INTRAPERITONEAL SPACE: Unremarkable. No free air. No significant fluid collection. BONES/JOINTS: Minimal degenerative change of the lower lumbar spine is present. SOFT TISSUES: The soft tissues are normal. VASCULATURE: Unremarkable. No abdominal aortic aneurysm. LYMPH NODES: Unremarkable. No enlarged lymph nodes. IMPRESSION: No acute findings on this contrasted CT of the abdomen and pelvis to explain the patient 's symptoms. Electronically signed by: Astrid Pradhan MD 09/22/2019 4:20 AM HAND IRONER Due to temporary technical issues with the PACS/Fluency reporting system, reports are being signed by the in house radiologist as a courtesy to ensure prompt reporting. The interpreting radiologist is f ully responsible for the content of the report.
== END 2019-09-23 13:00 | disposition home or self-care (01) ==
LOC: ER 01:06 → ERHOLD 05:52 → 4TH 06:06
PROVIDERS: ADMIT Internal Medicine; ATTEND Hospitalist
DX: R07.9 Chest pain, unspecified (principal); A08.4 Viral intestinal infection, unspecified; R79.89 Other specified abnormal findings of blood chemistry; M54.5 Low back pain; I10 Essential (primary) hypertension; D64.9 Anemia, unspecified; N28.9 Disorder of kidney and ureter, unspecified; Z88.0 Allergy status to penicillin; Z88.2 Allergy status to sulfonamides; Z95.0 Presence of cardiac pacemaker; I25.10 Atherosclerotic heart disease of native coronary artery without angina pectoris
CPT/HCPCS: 96361; 93005; 87088; 85025 ×2; 87086; 80048; 36415 ×2; 83735; 80061; 80076; 84484 ×3; 83690; 80053; 74177; 71045; 96375; 96374; 99285; Q9967; J1650 ×2; J7040; J2405 ×4; G0378 ×3; 81003; 81015

== ENCOUNTER 2019-12-16 18:15 | Emergency (ER) | payer MEDICARE, OTHER ==
[2019-12-16 18:41] LABS: Urine Blood 2+ (NEG); Urine Glucose NEGATIVE (NEG); Urine Protein NEGATIVE (NEG); Urine Specific Gravity 1.025 (1.005-1.030); Urine pH 5.5 (5.0-7.0)
[2019-12-16 18:53] LABS: Urine Bacteria <20 /HPF (<20); Urine Culture Reflex Order NOT NEEDED; Urine RBC <5 /HPF (NONE SEEN)
[2019-12-16 19:20] LABS: Absolute Lymphocytes (CBC) 2.2 K/uL (0.7-4.9); Basophils % 0.5 % (0-1.3); Hematocrit 41.7 % (36.0-45.0); Lymphocytes % 34.4 % (15.3-44.8); MPV 8.2 fL (7.6-11.3); RBC Red Blood Cell Count 4.97 M/uL (3.86-4.86)
[2019-12-16 19:21] LABS: Protime INR 0.93
[2019-12-16 19:41] LABS: ALT/SGPT 21 U/L (12-78); Albumin 3.2 g/dL (3.4-5.0); Alkaline Phosphatase 78 U/L (45-117); BUN Blood Urea Nitrogen 19 mg/dL (7-18); Bicarbonate 27 mmol/L (21-32); Bilirubin Direct < 0.1 mg/dL (0-0.2); Glucose Level 135 mg/dL (74-106); Lipase 68 U/L (73-393); NT PRO-BNP 65 pg/mL (<125); Protein, Total 8.2 g/dL (6.4-8.2); Sodium Level 143 mmol/L (136-145); Troponin (Emerg Dept Use Only) < 0.02 ng/mL (0.0-0.045)
[2019-12-16 19:47] LABS: AST/SGOT 20 U/L (15-37); Bilirubin Total < 0.1 mg/dL (0.2-1.0); Magnesium 2.2 mg/dL (1.8-2.4); Potassium 4.2 mmol/L (3.5-5.1)
--- NOTE | 2019-12-16 21:01 | RAD REPORT ---
EXAM DESCRIPTION: CT - Angio Aorta For Dissection - 12/16/2019 8:31 pm CLINICAL HISTORY: . Chest / abd pain COMPARISON: 2018 TECHNIQUE: Computed tomography angiography of the chest, abdomen pelvis were obtained. 100 cc Isovue 370 was administered intravenously. Coronal and sagittal reconstruction were performed. MIP 3D reconstruction was performed All CT scans are performed using dose optimization technique as appropriate and may include automated exposure control or mA/KV adjustment according to patient size. FINDINGS: An aortic dissection is not seen. An aortic aneurysm is not displayed. The celiac, SMA and SORAYA are patent . A lung consolidation is not present. A pericardial effusion is not seen. A pleural effusion is not n oted. A 25 millimeter hepatic cyst. Cholecystectomy. Spleen, pancreas right adrenal and kidneys demonstrate no significant abnormality. Small left adrenal adenoma The appendix is normal. There no evidence diverticulitis. A 2 centimeter left ovarian cyst without significant free fluid Small hiatal hernia Disc herniation/large disc bulge L4-5 resulting in spinal stenosis IMPRESSION: Negative for an aortic dissection. Disc herniation/large disc bulge L4-5. If clinically indicated further evaluation with MRI could be o btained
[2019-12-16] MEDS ORDERED: DIAZEPAM 10 MG/2 ML INJ SYRINGE ONE (21:40)
--- NOTE | 2019-12-16 21:54 | EDPHYS ---
Physician Documentation [facility] Name: Shelia Valentine Age: 69 yrs Sex: Female : 1950 Arrival Date: 12/16/2019 Time: 18:18 Bed 24 Private MD: ED Physician Miguel Martinez HPI: 12/15 18:28 This 69 yrs old Female presents to ER via Ambulatory with complaints of Back jmm Pain. 18:28 The patient presents with pain that is acute. Onset: The symptoms/episode jmm began/occurred gradually, 3 day(s) ago. The pain radiates to the left flank. Associated signs and symptoms: Pertinent positives: chest pain, Pertinent negatives: abdominal pain. This is a 69 year old female with a history of CAD, GERD, HTN, HLP that presents to the ED with complaints of left upper back pain which radiates down her left flank. Patient also complains of painful urination. Patient denies fever. Patient also complains of intermittent chest pain over the past 2 days. . Historical: - Allergies: 18:24 Sulfa (Sulfonamide Antibiotics); ll1 18:24 PENICILLINS; ll1 18:24 Morphine; ll1 18:24 HYDROCODONE; ll1 18:24 Demerol; ll1 18:24 Codeine; ll1 18:24 Cipro; ll1 - PMHx: 18:24 BRADYCARDIA; chest pain; GERD; Hypertension; Kidney stones; Osteoporosis; Sleep Apnea; ll1 Pancreatitis; High Cholesterol; CAD; - PSHx: 18:24 ; ll1 - Immunization history:: Flu vaccine is up to date. - Social history:: Patient/guardian denies using alcohol, street drugs, tobacco products, Smoking status: Patient denies any tobacco usage or history of. ROS: 18:28 Constitutional: Negative for fever, chills, and weight loss. jmm 18:28 Cardiovascular: Positive for chest pain. 18:28 Abdomen/GI: Negative for abdominal pain, nausea and vomiting, diarrhea. 18:28 Back: Positive for pain with movement. 18:28 All other systems are negative. Exam: 18:28 Head/Face: atraumatic. Eyes: EOMI, no conjunctival erythema appreciated ENT: Moist jmm Mucus Membranes Neck: Trachea midline, Supple Chest/axilla: Normal chest wall appearance and motion. 18:28 Constitutional: The patient appears in no acute distress, alert, awake. 18:28 Cardiovascular: Rate: normal, Rhythm: regular, Pulses: no pulse deficits are appreciated. 18:28 Respiratory: the patient does not display signs of respiratory distress, Respirations: normal, Breath sounds: are clear throughout. 18:28 Abdomen/GI: Inspection: obese Bowel sounds: normal, Palpation: abdomen is soft and non-tender, in all quadrants. 18:28 Back: pain, that is moderate, of the left scapular area, left subscapular area and left mid back. 18:28 Musculoskeletal/extremity: ROM: intact in all extremities. 18:28 Neuro: Orientation: is normal, Mentation: is normal, Memory: is normal. 18:28 Psych: Behavior/mood is pleasant, cooperative. Vital Signs: 18:20 BP 177 / 108; Pulse 81; Resp 19; Temp 98.0; Pulse Ox 97% ; Weight 78.02 kg; Height 5 ll1 ft. 2 in. (157.48 cm); Pain 8/10; 19:35 BP 163 / 90; Pulse 74; Pulse Ox 96% on R/A; vc 20:45 BP 177 / 88; Pulse 71; Resp 20; Pulse Ox 100% on R/A; vc 21:45 BP 163 / 75; Pulse 75; Resp 18; Pulse Ox 97% on R/A; vc 18:20 Body Mass Index 31.46 (78.02 kg, 157.48 cm) ll1 MDM: 18:31 Patient medically screened. arin 21:36 Data reviewed: vital signs, nurses notes. Counseling: I had a detailed discussion with gabrielle the patient and/or guardian regarding: the historical points, exam findings, and any diagnostic results supporting the discharge/admit diagnosis, lab results, radiology results, the need for outpatient follow up, to return to the emergency department if symptoms worsen or persist or if there are any questions or concerns that arise at home. ED course: patient was recently evaluated with a stress test. I do not suspect ACS at this time. Patient does have a history of chronic back pain. Pain is most likely due to spasm. Will treat with muscle relaxer. Patient is advised to follow up with pcp tomorrow for reevaluation. . 21:51 Data reviewed: lab test result(s), radiologic studies, CT scan. [facility] 12/15 18:28 Order name: Basic Metabolic Panel; Complete Time: 19:50 [facility] 12/15 18:28 Order name: CBC with Diff; Complete Time: 19:31 [facility] 12/15 18:28 Order name: LFT's; Complete Time: 19:50 [facility] 12/15 18:28 Order name: Magnesium; Complete Time: 19:50 [facility] 12/15 18:28 Order name: NT PRO-BNP; Complete Time: 19:50 [facility] 12/15 18:28 Order name: PT-INR; Complete Time: 19:31 [facility] 12/15 18:28 Order name: Troponin (emerg Dept Use Only); Complete Time: 19:50 [facility] 12/15 18:28 Order name: Lipase; Complete Time: 19:50 [facility] 12/15 18:28 Order name: Urine Microscopic Only; Complete Time: 18:59 [facility] 12/15 18:28 Order name: Urine Culture [facility] 12/15 18:39 Order name: Urine Dipstick--Ancillary (enter results) ar 12/15 19:51 Order name: CT Aorta for Dissection; Complete Time: 21:11 [facility] 12/15 18:28 Order name: EKG; Complete Time: 18:29 [facility] 12/15 18:28 Order name: EKG - Nurse/Tech; Complete Time: 19:34 [facility] 12/15 18:28 Order name: IV Saline Lock; Complete Time: 18:38 [facility] 12/15 18:28 Order name: Labs collected and sent; Complete Time: 18:38 [facility] 12/15 18:28 Order name: O2 Per Protocol; Complete Time: 18:38 [facility] 12/15 18:28 Order name: O2 Sat Monitoring; Complete Time: 18:38 [facility] 12/15 18:28 Order name: Urine Dipstick-Ancillary (obtain specimen); Complete Time: 18:37 [facility] Administered Medications: 21:44 Drug: Valium 2 mg Route: IVP; Site: right wrist; vc 22:38 Follow up: Response: No adverse reaction vc 22:30 Drug: Tetanus-Diphtheria Toxoid Adult 0.5 ml {Milk Route Supervisor: [employer]. Exp: vc 02/22/2021. Lot #: [id number]. } Route: IM; Site: right deltoid; 22:38 Follow up: Response: No adverse reaction vc Disposition: 12/16 07:30 Co-signature as Attending Physician, Miguel Martinez MD I agree with the assessment and arin plan of care. Disposition: 12/16/19 21:53 Discharged to Home. Impression: Strain of muscle and tendon of back wall of thorax, Strain of muscle, fascia and tendon of abdomen, lower back and pelvis, Finger Laceration, Chest Pain. - Condition is Stable. - Discharge Instructions: Nonspecific Chest Pain, Thoracic Strain. - Prescriptions for orphenadrine citrate 100 mg Oral Tablet Sustained Release - take 1 tablet by ORAL route 2 times per day As needed; 20 tablet. - Medication Reconciliation Form, Thank You Letter, Antibiotic Education, Prescription Opioid Use form. - Follow up: Private Physician; When: Tomorrow; Reason: Recheck today's complaints, Continuance of care, Re-evaluation by your physician. Signatures: Dispatcher [employer] EDMiguel Hilton MD MD cha Mickail, Joel, PA PA jmm Hall, Patricia, RN RN Amanda Menchaca RN RN vc Lewis, Lynsay, RN RN ll1 Corrections: (The following items were deleted from the chart) 12/15 22:51 21:53 12/16/2019 21:53 Discharged to Home. Impression: Strain of muscle and tendon of vc back wall of thorax; Strain of muscle, fascia and tendon of abdomen, lower back and pelvis; Finger Laceration; Chest Pain. Condition is Stable. Forms are Medication Reconciliation Form, Thank You Letter, Antibiotic Education, Prescription Opioid Use. Follow up: Private Physician; When: Tomorrow; Reason: Recheck today's complaints, Continuance of care, Re-evaluation by your physician. gabrielle
--- NOTE | 2019-12-16 21:54 | ER ---
Nurse's Notes [facility] Name: Shelia Valentine Age: 69 yrs Sex: Female : 1950 Arrival Date: 12/16/2019 Time: 18:18 Bed 24 Private MD: Diagnosis: Strain of muscle and tendon of back wall of thorax;Strain of muscle, fascia and tendon of abdomen, lower back and pelvis;Finger Laceration;Chest Pain Presentation: 12/15 18:20 Chief complaint: Patient states: 1. Upper and mid back pain for 3 days. + dysuria and ll1 pressure with urination. No known fever. No cough. + throat congestion. 2. Cut right hand 2nd digit on aluminum foil today. Bleeding controlled. Coronavirus screen: Patient denies a cough. Patient denies shortness of breath or difficulty breathing. Patient denies measured and/or subjective temperature greater than 100.4F. Patient denies travel on a cruise ship or to a country the [facility] currently lists as an affected area. Patient denies contact with known and/or suspected case of COVID-19. Ebola Screen: Patient denies travel to an Ebola-affected area in the 21 days before illness onset. Initial Sepsis Screen: Does the patient meet any 2 criteria? No. Patient's initial sepsis screen is negative. Risk Assessment: Do you want to hurt yourself or someone else? Patient reports no desire to harm self or others. 18:20 Method Of Arrival: Ambulatory ll1 18:20 Acuity: ADDI 3 ll1 20:59 Initial Sepsis Screen: Does the patient have a suspected source of infection? No. vc Patient's initial sepsis screen is negative. Triage Assessment: 20:58 General: Appears in no apparent distress. Behavior is calm, cooperative, appropriate vc for age. Musculoskeletal: Range of motion: intact in all extremities. Historical: - Allergies: 18:24 Sulfa (Sulfonamide Antibiotics); ll1 18:24 PENICILLINS; ll1 18:24 Morphine; ll1 18:24 HYDROCODONE; ll1 18:24 Demerol; ll1 18:24 Codeine; ll1 18:24 Cipro; ll1 - PMHx: 18:24 BRADYCARDIA; chest pain; GERD; Hypertension; Kidney stones; Osteoporosis; Sleep Apnea; ll1 Pancreatitis; High Cholesterol; CAD; - PSHx: 18:24 ; ll1 - Immunization history:: Flu vaccine is up to date. - Social history:: Patient/guardian denies using alcohol, street drugs, tobacco products, Smoking status: Patient denies any tobacco usage or history of. Screenin:43 Abuse screen: Denies threats or abuse. Denies injuries from another. Nutritional ph screening: No deficits noted. Tuberculosis screening: No symptoms or risk factors identified. Fall Risk None identified. Assessment: 18:38 Pain: Complains of pain in left scapular area, right scapular area, thoracic area and ph lumbar area. Neuro: Level of Consciousness is awake, alert, obeys commands, Oriented to person, place, time, situation. Cardiovascular: Denies chest pain, fatigue, nausea, shortness of breath, Capillary refill < 3 seconds in bilateral fingers Patient's skin is warm and dry. Respiratory: Airway is patent Respiratory effort is even, unlabored, Respiratory pattern is regular, symmetrical, Denies cough, shortness of breath. GI: No signs and/or symptoms were reported involving the gastrointestinal system. : Reports burning with urination, pain in bilateral in lower back. Derm: Skin is intact, is healthy with good turgor, Skin is pink, warm \T\ dry. Musculoskeletal: Circulation, motion, and sensation intact. Range of motion: intact in all extremities. 19:15 Reassessment: Patient appears in no apparent distress at this time. Patient and/or vc family updated on plan of care and expected duration. Pain level reassessed. Patient is alert, oriented x 3, equal unlabored respirations, skin warm/dry/pink. 20:15 Reassessment: Patient and/or family updated on plan of care and expected duration. Pain vc level reassessed. Patient is alert, oriented x 3, equal unlabored respirations, skin warm/dry/pink. Patient ambulated to bathroom. Patient states symptoms have not improved. 20:22 Reassessment: Patient to CT via stretcher. vc 21:15 Reassessment: Patient and/or family updated on plan of care and expected duration. Pain vc level reassessed. Patient is alert, oriented x 3, equal unlabored respirations, skin warm/dry/pink. Patient states symptoms have improved. 22:30 Reassessment: Patient and/or family updated on plan of care and expected duration. Pain vc level reassessed. Patient is alert, oriented x 3, equal unlabored respirations, skin warm/dry/pink. Patient denies pain at this time. Patient states feeling better. Patient states symptoms have improved. Vital Signs: 18:20 BP 177 / 108; Pulse 81; Resp 19; Temp 98.0; Pulse Ox 97% ; Weight 78.02 kg; Height 5 ll1 ft. 2 in. (157.48 cm); Pain 8/10; 19:35 BP 163 / 90; Pulse 74; Pulse Ox 96% on R/A; vc 20:45 BP 177 / 88; Pulse 71; Resp 20; Pulse Ox 100% on R/A; vc 21:45 BP 163 / 75; Pulse 75; Resp 18; Pulse Ox 97% on R/A; vc 18:20 Body Mass Index 31.46 (78.02 kg, 157.48 cm) ll1 ED Course: 18:18 Patient arrived in ED. mr 18:23 Triage completed. 1 18:24 Arm band placed on Patient placed in an exam room. [facility] 18:27 Roderick Wei PA is PHCP. [facility] 18:27 Miguel Martinez MD is Attending Physician. [facility] 18:37 Frances Morillo, KOBI is Primary Nurse. ph 18:44 Patient has correct armband on for positive identification. Bed in low position. Call ph light in reach. Side rails up X 1. Pulse ox on. NIBP on. Door closed. Noise minimized. Warm blanket given. 18:45 Missed attempt(s): 22 gauge wrist. Bleeding controlled, band aid applied, catheter tip jp3 intact. 19:10 Initial lab(s) drawn, by hi, sent to lab. Inserted saline lock: 24 gauge in left jp3 forearm, using aseptic technique. Blood collected. 20:15 No provider procedures requiring assistance completed. Inserted saline lock: 20 gauge vc in right wrist, using aseptic technique. 20:31 CT Aorta for Dissection In Process Unspecified. EDMS 20:32 CT completed. Patient tolerated procedure well. Patient moved back from CT. mw3 22:49 IV discontinued, intact, bleeding controlled, No redness/swelling at site. Pressure vc dressing applied. 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 Exp: vc 02/22/2021. Lot #: [id number]. } Route: IM; Site: right deltoid; 22:38 Follow up: Response: No adverse reaction vc Outcome: 21:53 Discharge ordered by . gabrielle 22:48 Discharged to home ambulatory. vc 22:48 Condition: good 22:48 Discharge instructions given to patient, Instructed on discharge instructions, follow up and referral plans. medication usage, Demonstrated understanding of instructions, follow-up care, medications, Prescriptions given X 1. 22:51 Patient left the ED. vc Signatures: Dispatcher [employer] EDMS Roderick Wei PA PA jmm Rivera, Mary mr Hall, Patricia RN RN Tanya Mcneill 3 Royal Hodge jp3 Amanda Menchaca RN RN vc Lewis, Lynsay, RN RN ll1
[2019-12-16] MEDS ORDERED: TETANUS & DIPHTHERIA TOX,ADULT 0.5 ML VIAL ONE (22:21)
[2019-12-16 23:23] VITALS: TEMP 98
[2019-12-16 23:38] VITALS: BP 163/75; O2SAT 97
--- NOTE | 2019-12-18 05:27 | EKG ---
Test Date: 2019-12-16 Test Time: 19:27:42 Freight Claim Investigator: RODY MEASUREMENT RESULTS: Intervals: Rate: 68 LA: 220 QRSD: 154 QT: 470 QTc: 499 [place]: P: 50 LA: 220 QRS: 90 T: 191 INTERPRETIVE STATEMENTS: Atrial-sensed ventricular-paced rhythm with prolonged AV conduction Abnormal ECG Compared to ECG 09/22/2019 01:35:00 No significant changes Electronically Signed On 12-18-19 05:25:17 CDT by Sukhjinder Darnell
== END 2019-12-16 22:51 | disposition home or self-care (01) ==
LOC: ER 18:15
DX: S29.012A Strain of muscle and tendon of back wall of thorax, initial encounter (principal); S39.012A Strain of muscle, fascia and tendon of lower back, initial encounter; S39.013A Strain of muscle, fascia and tendon of pelvis, initial encounter; I10 Essential (primary) hypertension; Z88.0 Allergy status to penicillin; Z88.1 Allergy status to other antibiotic agents; Z88.2 Allergy status to sulfonamides; Z88.5 Allergy status to narcotic agent; E78.00 Pure hypercholesterolemia, unspecified; I25.10 Atherosclerotic heart disease of native coronary artery without angina pectoris
CPT/HCPCS: 93005; 87088; 85025; 87086; 80048; 36415; 83735; 85610; 80076; 87077; 87186; 84484; 83690; 83880; 71275; 74175; 90471; 90714; 96374; 99284; Q9967; J3360; 81003; 81015

== ENCOUNTER 2020-01-18 22:48 | Emergency (ER) | payer OTHER ==
[2020-01-18] MEDS ORDERED: KETOROLAC 30 MG/ML INJ ONE (23:19)
[2020-01-18] MEDS ORDERED: ONDANSETRON 4 MG/2 ML VIAL ONE (23:19)
[2020-01-18] MEDS ORDERED: NA CHLORIDE 0.9% 1,000 ML ONE (23:19)
[2020-01-18 23:32] LABS: Absolute Lymphocytes (CBC) 2.3 K/uL (0.7-4.9); Basophils % 0.5 % (0-1.3); MPV 8.2 fL (7.6-11.3); RBC Red Blood Cell Count 4.97 M/uL (3.86-4.86)
[2020-01-18 23:39] LABS: Urine Blood 1+ (NEG); Urine Glucose NEGATIVE (NEG); Urine Protein NEGATIVE (NEG); Urine Specific Gravity >1.030 (1.005-1.030); Urine pH 5.5 (5.0-7.0)
[2020-01-18 23:40] LABS: Potassium 4.2 mmol/L (3.5-5.1)
--- NOTE | 2020-01-19 00:47 | EDPHYS ---
Physician Documentation [facility] Name: Shelia Valentine Age: 69 yrs Sex: Female : 1950 Arrival Date: 01/18/2020 Time: 22:49 Bed 19 Private MD: ED Physician Reese Love HPI: 01/17 23:31 This 69 yrs old Female presents to ER via Ambulatory with complaints of kb Nausea/Vomiting, Neck Pain, >24Hrs Old, Back Pain. 23:31 The patient complains of pain in the right flank. The pain does not radiate. Onset: The kb symptoms/episode began/occurred 3 day(s) ago. Modifying factors: The symptoms are alleviated by nothing. the symptoms are aggravated by palpation/percussion. Associated signs and symptoms: Pertinent positives: nausea, vomiting, Pertinent negatives: diarrhea, dizziness, dysuria, fever, urinary frequency, headache, hematuria, pain radiating to the lower extremities. Severity of pain: At its worst the pain was moderate in the emergency department the pain is unchanged. The patient has not experienced similar symptoms in the past. The patient has not recently seen a physician. 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 Also reports that when she shakes her head from side to side she gets a little dizzy and has some pain in her neck. . Historical: - Allergies: 23:04 Cipro; rv 23:04 Codeine; rv 23:04 Demerol; rv 23:04 HYDROCODONE; rv 23:04 Morphine; rv 23:04 PENICILLINS; rv 23:04 Sulfa (Sulfonamide Antibiotics); rv - PMHx: 23:04 BRADYCARDIA; CAD; GERD; High Cholesterol; Hypertension; Kidney stones; Osteoporosis; rv Pancreatitis; Sleep Apnea; - PSHx: 23:04 Cholecystectomy; ; pacemaker; rv - Immunization history:: Adult Immunizations up to date. - Social history:: Smoking status: unknown. ROS: 23:33 Constitutional: Negative for fever, chills, and weight loss, ENT: Negative for injury, kb pain, and discharge, Cardiovascular: Negative for chest pain, palpitations, and edema, Respiratory: Negative for shortness of breath, cough, wheezing, and pleuritic chest pain, : Negative for injury, bleeding, discharge, and swelling, MS/Extremity: Negative for injury and deformity, Skin: Negative for injury, rash, and discoloration. 23:33 Neck: Positive for pain with movement. 23:33 Abdomen/GI: Positive for nausea and vomiting, Negative for abdominal pain, diarrhea, constipation. 23:33 Back: Positive for flank pain, on the right. 23:33 Neuro: Positive for dizziness. Exam: 23:34 Constitutional: This is a well developed, well nourished patient who is awake, alert, kb and in no acute distress. Head/Face: Normocephalic, atraumatic. ENT: Nares patent. No nasal discharge, no septal abnormalities noted. Tympanic membranes are normal and external auditory canals are clear. Oropharynx with no redness, swelling, or masses, exudates, or evidence of obstruction, uvula midline. Mucous membranes moist. Neck: Trachea midline, no thyromegaly or masses palpated, and no cervical lymphadenopathy. Supple, full range of motion without nuchal rigidity, or vertebral point tenderness. No Meningismus. Chest/axilla: Normal chest wall appearance and motion. Nontender with no deformity. No lesions are appreciated. Cardiovascular: Regular rate and rhythm with a normal S1 and S2. No gallops, murmurs, or rubs. Normal PMI, no JVD. No pulse deficits. Respiratory: Lungs have equal breath sounds bilaterally, clear to auscultation and percussion. No rales, rhonchi or wheezes noted. No increased work of breathing, no retractions or nasal flaring. Abdomen/GI: Soft, non-tender, with normal bowel sounds. No distension or tympany. No guarding or rebound. No evidence of tenderness throughout. Skin: Warm, dry with normal turgor. Normal color with no rashes, no lesions, and no evidence of cellulitis. MS/ Extremity: Pulses equal, no cyanosis. Neurovascular intact. Full, normal range of motion. Neuro: Awake and alert, GCS 15, oriented to person, place, time, and situation. Cranial nerves II-XII grossly intact. Motor strength 5/5 in all extremities. Sensory grossly intact. Cerebellar exam normal. Normal gait. 23:34 Back: CVA tenderness, that is mild, that is moderate, is noted on the right. Vital Signs: 23:00 BP 163 / 66; Pulse 78; Resp 17; Temp 98.3; Pulse Ox 100% ; Weight 77.11 kg; Pain 8/10; rv 23:30 BP 153 / 83; Pulse 74; Resp 16; Pulse Ox 96% on R/A; rv 01/18 00:00 BP 150 / 83; Pulse 66; Resp 17; Pulse Ox 97% on R/A; rv 01:00 BP 167 / 87; Pulse 81; Resp 17; Temp 98(O); Pulse Ox 100% on R/A; rv MDM: 01/17 22:56 Patient medically screened. kb 23:34 Data reviewed: vital signs, nurses notes. Data interpreted: Pulse oximetry: on room air kb is 100 %. Interpretation: normal. 01/18 00:46 Counseling: I had a detailed discussion with the patient and/or guardian regarding: the kb historical points, exam findings, and any diagnostic results supporting the discharge/admit diagnosis, lab results, radiology results, the need for outpatient follow up, a family practitioner, to return to the emergency department if symptoms worsen or persist or if there are any questions or concerns that arise at home. 01/17 23:15 Order name: Basic Metabolic Panel; Complete Time: 23:47 kb 01/17 23:15 Order name: CBC with Diff; Complete Time: 23:35 kb 01/17 23:18 Order name: CT Stone Protocol kb 01/17 23:35 Order name: Urine Dipstick--Ancillary (enter results); Complete Time: 23:47 ar5 01/18 00:01 Order name: CT C Spine kb 01/17 23:15 Order name: IV Saline Lock; Complete Time: 23:22 kb 01/17 23:15 Order name: Labs collected and sent; Complete Time: 23:22 kb 01/17 23:18 Order name: Urine Dipstick-Ancillary (obtain specimen); Complete Time: 23:34 kb Administered Medications: 01/17 23:10 Drug: NS 0.9% 1000 ml Route: IV; Rate: 1000 ml; Site: right forearm; rv 01/18 01:05 Follow up: IV Status: Completed infusion; IV Intake: 1000ml rv 01/17 23:10 Drug: Zofran (Ondansetron) 4 mg Route: IVP; Site: right forearm; rv 01/18 01:05 Follow up: Response: No adverse reaction rv 01/17 23:22 Drug: TORadol - Ketorolac 15 mg Route: IVP; Site: right forearm; rv 01/18 01:05 Follow up: Response: No adverse reaction rv 01:00 Drug: Phenergan 6.25 mg Route: IVP; Site: right forearm; rv 02:13 Follow up: Response: No adverse reaction rv 01:00 Drug: Tylenol 1000 mg Route: PO; rv 02:13 Follow up: Response: No adverse reaction rv Disposition: 03:17 Co-signature as Attending Physician, Reese Love MD. orly Disposition: 01/19/20 00:46 Discharged to Home. Impression: Flank Pain, Nausea and vomiting, neck pain. - Condition is Stable. - Discharge Instructions: Nausea and Vomiting, Adult, [id number], Flank Pain, [id number]. - Prescriptions for Zofran 4 mg Oral Tablet - take 1 tablet by ORAL route every 6 hours As needed; 20 tablet. - Medication Reconciliation Form, Thank You Letter, Antibiotic Education, Prescription Opioid Use form. - Follow up: Emergency Department; When: As needed; Reason: Worsening of condition. Follow up: Private Physician; When: 2 - 3 days; Reason: Recheck today's complaints, Continuance of care, Re-evaluation by your physician. Signatures: Dispatcher [employer] EDMS Rocio Malave, GRAPHIC DESIGN MANAGER-C GRAPHIC DESIGN MANAGER-Reese Cary MD MD pkl Vicente, Ronaldo RN RN rv Corrections: (The following items were deleted from the chart) 02:32 00:46 01/19/2020 00:46 Discharged to Home. Impression: Flank Pain; Nausea and vomiting; rv neck pain. Condition is Stable. Forms are Medication Reconciliation Form, Thank You Letter, Antibiotic Education, Prescription Opioid Use. Follow up: Emergency Department; When: As needed; Reason: Worsening of condition. Follow up: Private Physician; When: 2 - 3 days; Reason: Recheck today's complaints, Continuance of care, Re-evaluation by your physician. kb
--- NOTE | 2020-01-19 00:47 | ER ---
Nurse's Notes [facility] Name: Shelia Valentine Age: 69 yrs Sex: Female : 1950 Arrival Date: 01/18/2020 Time: 22:49 Bed 19 Private MD: Diagnosis: Flank Pain;Nausea and vomiting;neck pain Presentation: 01/17 23:00 Chief complaint: Patient states: 3 days ago started complaining of back pain, right rv side. yesterday having pain on the back of the neck. Started Clarithromycin and Metronidazole for stomach infection since 01/11/20. patient is actively vomiting. Coronavirus screen: Proceed with normal triage. Ebola Screen: No symptoms or risks identified at this time. Initial Sepsis Screen: Does the patient meet any 2 criteria? No. Patient's initial sepsis screen is negative. Does the patient have a suspected source of infection? No. Patient's initial sepsis screen is negative. Risk Assessment: Do you want to hurt yourself or someone else? Patient reports no desire to harm self or others. Onset of symptoms was January 17, 2020 at 08:00. 23:00 Method Of Arrival: Ambulatory rv 23:00 Acuity: ADDI 3 rv Triage Assessment: 23:15 General: Appears uncomfortable, Behavior is calm, cooperative. rv 23:15 Pain: Complains of pain in back and right flank. Neuro: Level of Consciousness is rv awake, alert, obeys commands, Oriented to person, place, time, situation. Cardiovascular: Patient's skin is warm and dry. Respiratory: Airway is patent Respiratory effort is even, unlabored. GI: Pt is actively vomiting bile, Reports nausea, vomiting. :. Historical: - Allergies: 23:04 Cipro; rv 23:04 Codeine; rv 23:04 Demerol; rv 23:04 HYDROCODONE; rv 23:04 Morphine; rv 23:04 PENICILLINS; rv 23:04 Sulfa (Sulfonamide Antibiotics); rv - PMHx: 23:04 BRADYCARDIA; CAD; GERD; High Cholesterol; Hypertension; Kidney stones; Osteoporosis; rv Pancreatitis; Sleep Apnea; - PSHx: 23:04 Cholecystectomy; ; pacemaker; rv - Immunization history:: Adult Immunizations up to date. - Social history:: Smoking status: unknown. Screenin:44 Abuse screen: Denies threats or abuse. Denies injuries from another. Nutritional rv screening: No deficits noted. Tuberculosis screening: No symptoms or risk factors identified. Fall Risk None identified. Assessment: 23:42 Reassessment: patient was able to move bowels. rv 01/18 00:45 Reassessment: Patient and/or family updated on plan of care and expected duration. Pain rv level reassessed. Patient is alert, oriented x 3, equal unlabored respirations, skin warm/dry/pink. 00:45 GI: Abdomen is round non-distended. rv 02:12 Reassessment: patient unable to contact family for transportation. rv Vital Signs: 01/17 23:00 BP 163 / 66; Pulse 78; Resp 17; Temp 98.3; Pulse Ox 100% ; Weight 77.11 kg; Pain 8/10; rv 23:30 BP 153 / 83; Pulse 74; Resp 16; Pulse Ox 96% on R/A; rv 01/18 00:00 BP 150 / 83; Pulse 66; Resp 17; Pulse Ox 97% on R/A; rv 01:00 BP 167 / 87; Pulse 81; Resp 17; Temp 98(O); Pulse Ox 100% on R/A; rv ED Course: 01/17 22:49 Patient arrived in ED. fj1 22:56 Rocio [facility]ave [facility]C [facility] kb 22:56 Reese Love MD is Attending Physician. kb 23:00 Melchor Chavez RN is Primary Nurse. rv 23:02 Triage completed. rv 23:10 Inserted saline lock: 20 gauge in right forearm, using aseptic technique. Blood rv collected. 23:10 Initial lab(s) drawn, by wy, sent to lab. rv 23:44 Placed in gown. Bed in low position. Call light in reach. Side rails up X 1. Pulse ox rv on. NIBP on. 23:46 Arm band placed on Patient placed Patient notified of wait time. rv 01/18 00:30 CT C Spine In Process Unspecified. EDMS 00:32 CT Stone Protocol In Process Unspecified. EDMS 01:09 No provider procedures requiring assistance completed. IV discontinued, intact, rv bleeding controlled, No redness/swelling at site. Pressure dressing applied. Administered Medications: 01/17 23:10 Drug: NS 0.9% 1000 ml Route: IV; Rate: 1000 ml; Site: right forearm; rv 01/18 01:05 Follow up: IV Status: Completed infusion; IV Intake: 1000ml rv 01/17 23:10 Drug: Zofran (Ondansetron) 4 mg Route: IVP; Site: right forearm; rv 01/18 01:05 Follow up: Response: No adverse reaction rv 01/17 23:22 Drug: TORadol - Ketorolac 15 mg Route: IVP; Site: right forearm; rv 01/18 01:05 Follow up: Response: No adverse reaction rv 01:00 Drug: Phenergan 6.25 mg Route: IVP; Site: right forearm; rv 02:13 Follow up: Response: No adverse reaction rv 01:00 Drug: Tylenol 1000 mg Route: PO; rv 02:13 Follow up: Response: No adverse reaction rv Intake: 01:05 IV: 1000ml; Total: 1000ml. rv Outcome: 00:46 Discharge ordered by . kb 01:09 Condition: good rv 01:09 Discharge instructions given to patient, Instructed on discharge instructions, follow up and referral plans. medication usage, Demonstrated understanding of instructions, follow-up care, medications, Prescriptions given X 1. 02:32 Discharged to home ambulatory. rv 02:32 Patient left the ED. rv Signatures: Dispatcher [employer] EDMS Rocio Malave, SHALINI-C HR ADMINISTRATIVE ASSISTANT-Melchor Bennett RN RN rv Brennan Kevin fj1 Corrections: (The following items were deleted from the chart) 02:12 01:09 Discharged to home ambulatory, rv rv 02:12 01:09 Discharge instructions given to patient, Instructed on discharge instructions, rv follow up and referral plans. medication usage, Demonstrated understanding of instructions, follow-up care, medications, Prescriptions given X 2, rv
[2020-01-19] MEDS ORDERED: PROMETHAZINE INJ 25 MG/ML AMP ONE (01:00)
[2020-01-19] MEDS ORDERED: ACETAMINOPHEN 500 MG TAB ONE (01:01)
[2020-01-19 03:02] VITALS: BP 167/87; TEMP 98; O2SAT 100
--- NOTE | 2020-01-19 11:36 | RAD REPORT ---
EXAM DESCRIPTION: CT - C Spine Wo Con - 01/19/2020 5:37 am CLINICAL HISTORY: PAIN COMPARISON: None. TECHNIQUE: CT CERVICAL SPINE WITHOUT IV CONTRAST on 01/19/2020 12:01 AM CDT This exam was performed according to our departmental dose-optimization program, which includes autom ated exposure control, adjustment of the mA and/or kV according to patient size and/or use of iterati ve reconstruction technique. FINDINGS: There is no acute fracture. Alignment is anatomic. There is mild left and moderate right-s ided facet arthritis. There is mild narrowing of the C4-5 disc. Vertebral body heights are preserved. Soft tissues are unre markable. IMPRESSION: No acute fracture or subluxation. Electronically signed by: Rigoberto Hassan MD 01/19/2020 12:36 AM CDT Due to temporary technical issues with the PACS/Fluency reporting system, reports are being signed by the in house radiologist as a courtesy to ensure prompt reporting. The interpreting radiologist is f ully responsible for the content of the report.
--- NOTE | 2020-01-19 12:35 | RAD REPORT ---
EXAM DESCRIPTION: CT - Stone Protocol - 01/19/2020 5:37 am CLINICAL HISTORY: FLANK PAIN COMPARISON: 09/22/2019. TECHNIQUE: CT ABDOMEN PELVIS WITHOUT IV CONTRAST on 01/18/2020 11:18 PM CDT This exam was performed according to our departmental dose-optimization program, which includes autom ated exposure control, adjustment of the mA and/or kV according to patient size and/or use of iterati ve reconstruction technique. FINDINGS: Lower lungs are clear. Abdomen: There is a small right hepatic lobe cyst. There is no biliary dilatation. Cholecystectomy wa s performed. The pancreas and spleen are normal in appearance. There are five left renal calculi pily uring up to 2 mm. There are four right renal calculi measuring up to 2 mm. Abdominal aorta is normal in course and caliber without aneurysm. There is no free air. There is no r etroperitoneal adenopathy. Pelvis: There is no bowel obstruction. Urinary bladder is unremarkable. There is no free fluid. Uteru s is normal in size. Appendix is normal. Skeleton: There are no acute osseous findings. No suspicious bony lesions. IMPRESSION: Bilateral nephrolithiasis without hydronephrosis. No acute inflammatory process. Electronically signed by: Rigoberto Hassan MD 01/19/2020 12:41 AM CDT Due to temporary technical issues with the PACS/Fluency reporting system, reports are being signed by the in house radiologist as a courtesy to ensure prompt reporting. The interpreting radiologist is f ully responsible for the content of the report.
== END 2020-01-19 02:32 | disposition home or self-care (01) ==
LOC: ER 22:48
DX: R11.2 Nausea with vomiting, unspecified (principal); M54.2 Cervicalgia; I10 Essential (primary) hypertension; Z88.0 Allergy status to penicillin; Z88.1 Allergy status to other antibiotic agents; Z88.2 Allergy status to sulfonamides; Z88.5 Allergy status to narcotic agent; Z95.0 Presence of cardiac pacemaker
CPT/HCPCS: 96361; 85025; 80048; 36415; 81003; 72125; 76377; 74176; 96375; 96374; 99284; J2550; J7030; J2405

== ENCOUNTER 2020-03-18 09:04 | Emergency (ER) | payer OTHER ==
[2020-03-18 09:43] LABS: Urine Blood TRACE (NEG); Urine Glucose NEGATIVE (NEG); Urine Protein NEGATIVE (NEG); Urine Specific Gravity 1.025 (1.005-1.030); Urine pH 5.5 (5.0-7.0)
[2020-03-18] MEDS ORDERED: NA CHLORIDE 0.9% 500 ML ONE (09:52)
[2020-03-18] MEDS ORDERED: ONDANSETRON 4 MG/2 ML VIAL ONE (09:52)
[2020-03-18 10:01] LABS: Absolute Lymphocytes (CBC) 1.5 K/uL (0.7-4.9); Basophils % 0.5 % (0-1.3); Hematocrit 41.9 % (36.0-45.0); Lymphocytes % 31.9 % (15.3-44.8); MPV 8.6 fL (7.6-11.3); RBC Red Blood Cell Count 4.97 M/uL (3.86-4.86)
[2020-03-18 10:23] LABS: ALT/SGPT 34 U/L (12-78); AST/SGOT 34 U/L (15-37); Albumin 3.5 g/dL (3.4-5.0); Alkaline Phosphatase 94 U/L (45-117); BUN Blood Urea Nitrogen 12 mg/dL (7-18); Bicarbonate 26 mmol/L (21-32); Bilirubin Direct < 0.1 mg/dL (0-0.2); Bilirubin Total 0.4 mg/dL (0.2-1.0); Glucose Level 93 mg/dL (74-106); Potassium 4.1 mmol/L (3.5-5.1); Protein, Total 8.8 g/dL (6.4-8.2); Sodium Level 142 mmol/L (136-145)
--- NOTE | 2020-03-18 10:56 | RAD REPORT ---
EXAM DESCRIPTION: CT - Abdomen Pelvis W Contrast - 03/18/2020 10:36 am CLINICAL HISTORY: Abdominal pain COMPARISON: January 2020 TECHNIQUE: Computed axial tomography of the abdomen pelvis was obtained. 100 cc Isovue-300 was admin istered intravenously. Oral contrast was not requested which limits evaluation of bowel. All CT scans are performed using dose optimization technique as appropriate and may include automated exposure control or mA/KV adjustment according to patient size. FINDINGS: Hepatic cyst unchanged. Cholecystectomy Spleen, pancreas and adrenals unremarkable. Tiny nonobstructing renal calculi. Small renal cysts. No evidence of diverticulitis. Normal appendix. Small uterine fibroid. 2 centimeter left ovarian cyst without significant change Small hiatal hernia IMPRESSION: No acute abnormality is displayed.
[2020-03-18] MEDS ORDERED: MAGNE/ALUM HYDROXD 30 ML UCUP ONE (11:00)
[2020-03-18] MEDS ORDERED: LIDOCAINE VISCOUS 2% SOLN 15 ML UDC ONE (11:00)
--- NOTE | 2020-03-18 12:09 | EDPHYS ---
Physician Documentation [facility] Name: Shelia Valentine Age: 69 yrs Sex: Female : 1950 Arrival Date: 03/18/2020 Time: 09:09 Bed 7 Private MD: ED Physician Ki Virk HPI: 03/18 09:44 This 69 yrs old Female presents to ER via Ambulatory with complaints of kdr Vomiting, Abdominal Pain, Back Pain, Urinary Problem. 09:44 The patient presents to the emergency department with nausea, that is mild, abdominal kdr pain, of the epigastric area, described as achy, burning, constant, dull, vague,\E\. Onset: The symptoms/episode began/occurred gradually, Tuesday. Possible causes: unknown. The symptoms are aggravated by nothing. The symptoms are alleviated by nothing. Associated signs and symptoms: Pertinent positives: abdominal pain, nausea, Substernal CP and left clavicular pain. Severity of symptoms: At their worst the symptoms were mild moderate just prior to arrival, in the emergency department the symptoms are unchanged. The patient has not experienced similar symptoms in the past. The patient has not recently seen a physician. Historical: - Allergies: 09:28 Cipro; ss 09:28 Codeine; ss 09:28 Demerol; ss 09:28 HYDROCODONE; ss 09:28 Morphine; ss 09:28 PENICILLINS; ss 09:28 Sulfa (Sulfonamide Antibiotics); ss - PMHx: 09:28 BRADYCARDIA; CAD; chest pain; GERD; High Cholesterol; Hypertension; Kidney stones; ss Osteoporosis; Pancreatitis; Sleep Apnea; - PSHx: 09:28 Cholecystectomy; ; pacemaker; ss - Immunization history:: Adult Immunizations up to date. - Social history:: Smoking status: Patient denies any tobacco usage or history of. ROS: 09:44 Constitutional: Negative for fever, chills, and weight loss, Eyes: Negative for injury, kdr pain, redness, and discharge, ENT: Negative for injury, pain, and discharge, Neck: Negative for injury, pain, and swelling, Respiratory: Negative for shortness of breath, cough, wheezing, and pleuritic chest pain, Back: Negative for injury and pain, : Negative for injury, bleeding, discharge, and swelling, MS/Extremity: Negative for injury and deformity, Skin: Negative for injury, rash, and discoloration, Neuro: Negative for headache, weakness, numbness, tingling, and seizure activity. Psych: Negative for depression, anxiety, suicide ideation, homicidal ideation, and hallucinations, Allergy/Immunology: Negative for hives, rash, and allergies, Endocrine: Negative for neck swelling, polydipsia, polyuria, polyphagia, and marked weight changes, Hematologic/Lymphatic: Negative for swollen nodes, abnormal bleeding, and unusual bruising. 09:44 Cardiovascular: Positive for chest pain, Negative for edema, orthopnea, palpitations, paroxysmal nocturnal dyspnea, acute changes. 09:44 Abdomen/GI: Positive for abdominal pain, nausea and vomiting, rectal pain, The patient has hemorrhoids , Negative for diarrhea, constipation, abdominal cramps, abdominal distension, dysphagia, hematemesis, black/tarry stool. Exam: 09:44 Constitutional: This is a well developed, well nourished patient who is awake, alert, kdr and in no acute distress. Head/Face: Normocephalic, atraumatic. Eyes: Pupils equal round and reactive to light, extra-ocular motions intact. Lids and lashes normal. Conjunctiva and sclera are non-icteric and not injected. Cornea within normal limits. Periorbital areas with no swelling, redness, or edema. Neck: Trachea midline, no thyromegaly or masses palpated, and no cervical lymphadenopathy. Supple, full range of motion without nuchal rigidity, or vertebral point tenderness. No Meningismus. Chest/axilla: Normal chest wall appearance and motion. Nontender with no deformity. No lesions are appreciated. Cardiovascular: Regular rate and rhythm with a normal S1 and S2. No gallops, murmurs, or rubs. Normal PMI, no JVD. No pulse deficits. Respiratory: Lungs have equal breath sounds bilaterally, clear to auscultation and percussion. No rales, rhonchi or wheezes noted. No increased work of breathing, no retractions or nasal flaring. Back: No spinal tenderness. No costovertebral tenderness. Full range of motion. Skin: Warm, dry with normal turgor. Normal color with no rashes, no lesions, and no evidence of cellulitis. MS/ Extremity: Pulses equal, no cyanosis. Neurovascular intact. Full, normal range of motion. Neuro: Awake and alert, GCS 15, oriented to person, place, time, and situation. Cranial nerves II-XII grossly intact. Motor strength 5/5 in all extremities. Sensory grossly intact. Cerebellar exam normal. Normal gait. Psych: Awake, alert, with orientation to person, place and time. Behavior, mood, and affect are within normal limits. 09:44 Abdomen/GI: Inspection: obese Bowel sounds: active, all quadrants, Palpation: soft, mild abdominal tenderness, in the epigastric area. 10:06 ECG was reviewed by the Attending Physician. kdr Vital Signs: 09:24 BP 157 / 97; Pulse 73; Resp 16; Temp 98.9(TE); Pulse Ox 100% on R/A; Weight 77.11 kg; ss Pain 7/10; 10:45 BP 173 / 58; Pulse 64; Resp 18; Pulse Ox 95% ; sv MDM: 09:44 Data reviewed: vital signs, nurses notes, lab test result(s). Counseling: I had a kdr detailed discussion with the patient and/or guardian regarding: the historical points, exam findings, and any diagnostic results supporting the discharge/admit diagnosis, lab results. 12:08 Patient medically screened. kdr 03/18 09:24 Order name: Urine Dipstick--Ancillary (enter results) mt 03/18 09:25 Order name: Basic Metabolic Panel; Complete Time: 10:54 kdr 03/18 09:25 Order name: CBC with Diff; Complete Time: 10:54 kdr 03/18 09:25 Order name: Hepatic Function; Complete Time: 10:54 kdr 03/18 09:25 Order name: Urine Dipstick-Ancillary; Complete Time: 10:54 EDMS 03/18 09:44 Order name: Troponin (emerg Dept Use Only); Complete Time: 10:54 kdr 03/18 09:24 Order name: Urine Dipstick-Ancillary (obtain specimen); Complete Time: 09:24 sv 03/18 09:25 Order name: IV Saline Lock; Complete Time: 09:53 kdr 03/18 09:25 Order name: Labs collected and sent; Complete Time: 09:53 kdr 03/18 09:44 Order name: CT Abd/Pelvis - IV Contrast Only; Complete Time: 11:19 kdr 03/18 09:44 Order name: EKG - Nurse/Tech; Complete Time: 09:53 kdr EC:06 Rate is 65 beats/min. Rhythm is regular, Paced with No ectopy. Left axis deviation kdr noted. FL interval is normal. QRS interval is normal. QT interval is normal. No Q waves. Clinical impression: Abnormal EKG without significant change and No evidence of ischemia. Administered Medications: 09:53 Drug: NS 0.9% 250 ml Route: IV; Rate: bolus; Site: right wrist; em 10:20 Follow up: IV Status: Completed infusion; IV Intake: 250ml em 09:54 Drug: Zofran (Ondansetron) 4 mg Route: IVP; Site: right wrist; em 10:20 Follow up: Response: No adverse reaction; Marked relief of symptoms; Nausea is decreasedem 10:22 Drug: NS 0.9% 1000 ml Route: IV; Rate: 100 ml/hr; Site: right wrist; em 11:30 Follow up: IV Status: Order to discontinue infusion em 10:59 Drug: GI Cocktail with - (Phenobarbital-Belladonna 10 ml, Maalox Suspension 30 em ml, Lidocaine Liquid 2 % 20 ml) Route: PO; 11:32 Follow up: Response: No adverse reaction; Marked relief of symptoms; Pain is decreased em Disposition: 03/18/20 12:08 Discharged to Home. Impression: Nausea and vomiting, Abdominal and pelvic pain, Functional dyspepsia. - Condition is Stable. - Discharge Instructions: Abdominal Pain, Adult, [id number]-[id number]. - Prescriptions for Pepcid 20 mg Oral Tablet - take 1 tablet by ORAL route every 12 hours for 5 days; 10 tablet. Zofran 4 mg Oral Tablet - take 1 tablet by ORAL route every 4-6 hours As needed; 12 tablet. - Medication Reconciliation Form, Thank You Letter, Antibiotic Education, Prescription Opioid Use form. - Follow up: Private Physician; When: 2 - 3 days; Reason: If symptoms return, Further diagnostic work-up, Recheck today's complaints, Continuance of care, Re-evaluation by your physician. Follow up: Randy Quinteros MD; When: 2 - 3 days; Reason: If symptoms return, Further diagnostic work-up, Recheck today's complaints, Continuance of care, Re-evaluation by your physician. - Problem is an ongoing problem. - Symptoms have improved. Signatures: Dispatcher [employer] Arlette Das RN RN sv Ki Virk MD MD [facility] Samir Astorga RN RN em Deb Silverman RN RN ss Corrections: (The following items were deleted from the chart) 12:24 12:08 03/18/2020 12:08 Discharged to Home. Impression: Nausea and vomiting; Abdominal em and pelvic pain; Functional dyspepsia. Condition is Stable. Forms are Medication Reconciliation Form, Thank You Letter, Antibiotic Education, Prescription Opioid Use. Follow up: Private Physician; When: 2 - 3 days; Reason: If symptoms return, Further diagnostic work-up, Recheck today's complaints, Continuance of care, Re-evaluation by your physician. Follow up: Randy Quinteros; When: 2 - 3 days; Reason: If symptoms return, Further diagnostic work-up, Recheck today's complaints, Continuance of care, Re-evaluation by your physician. Problem is an ongoing problem. Symptoms have improved. kdr
--- NOTE | 2020-03-18 12:09 | ER ---
Nurse's Notes [facility] Name: Shelia Valentine Age: 69 yrs Sex: Female : 1950 Arrival Date: 03/18/2020 Time: 09:09 Bed 7 Private MD: Diagnosis: Nausea and vomiting;Abdominal and pelvic pain;Functional dyspepsia Presentation: 03/18 09:24 Chief complaint: Patient states: burning with urination, back pain and N/V that began ss 2-3 days ago. Coronavirus screen: Proceed with normal triage. Patient denies a cough. Patient denies shortness of breath or difficulty breathing. Patient denies measured and/or subjective temperature greater than 100.4F prior to today's visit. Patient denies travel on a cruise ship or to a country the [facility] currently lists as an affected area. Patient denies contact with known and/or suspected case of COVID-19. Ebola Screen: Patient denies exposure to infectious person. Patient denies travel to an Ebola-affected area in the 21 days before illness onset. Initial Sepsis Screen: Does the patient meet any 2 criteria? No. Patient's initial sepsis screen is negative. Does the patient have a suspected source of infection? No. Patient's initial sepsis screen is negative. Risk Assessment: Do you want to hurt yourself or someone else? Patient reports no desire to harm self or others. Onset of symptoms was March 16, 2020. 09:24 Method Of Arrival: Ambulatory 09:24 Acuity: ADDI 3 ss Historical: - Allergies: 09:28 Cipro; ss 09:28 Codeine; ss 09:28 Demerol; ss 09:28 HYDROCODONE; ss 09:28 Morphine; ss 09:28 PENICILLINS; ss 09:28 Sulfa (Sulfonamide Antibiotics); ss - PMHx: 09:28 BRADYCARDIA; CAD; chest pain; GERD; High Cholesterol; Hypertension; Kidney stones; ss Osteoporosis; Pancreatitis; Sleep Apnea; - PSHx: 09:28 Cholecystectomy; ; pacemaker; ss - Immunization history:: Adult Immunizations up to date. - Social history:: Smoking status: Patient denies any tobacco usage or history of. Screenin:24 Abuse screen: Denies threats or abuse. Denies injuries from another. Nutritional sv screening: No deficits noted. Tuberculosis screening: No symptoms or risk factors identified. Fall Risk None identified. Assessment: 09:40 General: Appears in no apparent distress. comfortable, Behavior is calm, cooperative, em appropriate for age, Denies fever. Pain: Complains of pain in back and epigastric area Pain currently is 6 out of 10 on a pain scale. Neuro: Level of Consciousness is awake, alert, obeys commands, Oriented to person, place, time, situation, Appropriate for age. Cardiovascular: Reports chest pain, nausea, Capillary refill < 3 seconds. Respiratory: Airway is patent Respiratory effort is even, unlabored, Respiratory pattern is regular, symmetrical. GI: Abdomen is round non-distended, Reports diarrhea, nausea, vomiting. : Reports burning with urination. Derm: Skin is intact, is healthy with good turgor, Skin is pink, warm \T\ dry. Musculoskeletal: Capillary refill < 3 seconds, Range of motion: intact in all extremities. 10:55 Reassessment: request something for pain, Dr. Virk notified, received verbal orders em for GI cocktail. 11:33 Reassessment: Patient appears in no apparent distress at this time. Patient and/or em family updated on plan of care and expected duration. Pain level reassessed. Patient is alert, oriented x 3, equal unlabored respirations, skin warm/dry/pink. Patient states feeling better. Patient states symptoms have improved. Vital Signs: 09:24 BP 157 / 97; Pulse 73; Resp 16; Temp 98.9(TE); Pulse Ox 100% on R/A; Weight 77.11 kg; ss Pain 7/10; 10:45 BP 173 / 58; Pulse 64; Resp 18; Pulse Ox 95% ; sv ED Course: 09:09 Patient arrived in ED. mr 09:19 Samir Astorga, KOBI is Primary Nurse. em 09:20 Ki Virk MD is Attending Physician. kdr 09:24 Urine collected: clean catch specimen, clear. sv 09:24 Patient has correct armband on for positive identification. Placed in gown. Bed in low sv position. Call light in reach. Pulse ox on. NIBP on. Door closed. Head of bed elevated. 09:27 Triage completed. ss 09:28 Arm band placed on right wrist. ss 09:40 ED physician to see patient. sv 09:45 Inserted saline lock: 22 gauge in right wrist, using aseptic technique. ,using aseptic sv technique. diffusics Blood collected. Flushed right with 5 ml normal saline. 09:53 Urine Dipstick--Ancillary (enter results) Sent. sv 09:57 EKG done, by ED staff, reviewed by Ki Virk MD. sv 10:35 CT Abd/Pelvis - IV Contrast Only In Process Unspecified. EDMS 12:07 Randy Quinteros MD is Referral Physician. kdr 12:23 No provider procedures requiring assistance completed. IV discontinued, intact, em bleeding controlled, No redness/swelling at site. Pressure dressing applied. Administered Medications: 09:53 Drug: NS 0.9% 250 ml Route: IV; Rate: bolus; Site: right wrist; em 10:20 Follow up: IV Status: Completed infusion; IV Intake: 250ml em 09:54 Drug: Zofran (Ondansetron) 4 mg Route: IVP; Site: right wrist; em 10:20 Follow up: Response: No adverse reaction; Marked relief of symptoms; Nausea is decreasedem 10:22 Drug: NS 0.9% 1000 ml Route: IV; Rate: 100 ml/hr; Site: right wrist; em 11:30 Follow up: IV Status: Order to discontinue infusion em 10:59 Drug: GI Cocktail with - (Phenobarbital-Belladonna 10 ml, Maalox Suspension 30 em ml, Lidocaine Liquid 2 % 20 ml) Route: PO; 11:32 Follow up: Response: No adverse reaction; Marked relief of symptoms; Pain is decreased em Intake: 10:20 IV: 250ml; Total: 250ml. em Outcome: 12:08 Discharge ordered by . kdr 12:23 Discharged to home ambulatory. em 12:23 Condition: good 12:23 Discharge instructions given to patient, Instructed on discharge instructions, follow up and referral plans. medication usage, Demonstrated understanding of instructions, follow-up care, medications, Prescriptions given X 2. 12:24 Patient left the ED. em Signatures: Dispatcher [employer] Arlette Das, RN Ki Godoy MD MD kdr Rivera, Mary mr Munoz, Edgar, RN RN em Deb Silverman RN RN ss Corrections: (The following items were deleted from the chart) 11:30 10:45 BP 173 / 58; Pulse 64bpm; Resp 18bpm; sv sv
[2020-03-18 12:34] VITALS: TEMP 98.9
[2020-03-18 12:44] VITALS: BP 173/58; O2SAT 95
--- NOTE | 2020-03-19 07:18 | EKG ---
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
== END 2020-03-18 12:24 | disposition home or self-care (01) ==
LOC: ER 09:04
DX: K30 Functional dyspepsia (principal); R10.2 Pelvic and perineal pain; I10 Essential (primary) hypertension; Z95.0 Presence of cardiac pacemaker; Z88.1 Allergy status to other antibiotic agents; Z88.5 Allergy status to narcotic agent; Z88.2 Allergy status to sulfonamides
CPT/HCPCS: 96365; 96361; 93005; 85025; 80048; 36415; 80076; 81003; 84484; 74177; 96375; 99284; Q9967; J7040; J2405

== ENCOUNTER 2020-03-21 10:36 | Emergency (ER) | payer OTHER ==
[2020-03-21 12:22] LABS: Urine Blood 1+ (NEG); Urine Glucose NEGATIVE (NEG); Urine Protein 2+ (NEG); Urine Specific Gravity 1.025 (1.005-1.030); Urine pH 6.5 (5.0-7.0)
[2020-03-21 13:16] LABS: Absolute Lymphocytes (CBC) 0.8 K/uL (0.7-4.9); Basophils % 0.1 % (0-1.3); Hematocrit 42.3 % (36.0-45.0); Lymphocytes % 15.6 % (15.3-44.8); MPV 8.1 fL (7.6-11.3); RBC Red Blood Cell Count 5.02 M/uL (3.86-4.86)
[2020-03-21] MEDS ORDERED: ACETAMINOPHEN 500 MG TAB ONE (13:19)
[2020-03-21] MEDS ORDERED: MAGNE/ALUM HYDROXD 30 ML UCUP ONE (13:19)
[2020-03-21] MEDS ORDERED: ONDANSETRON 4 MG/2 ML VIAL ONE (13:20)
[2020-03-21] MEDS ORDERED: CEFTRIAXONE/SWI 1gm 1 GM/10 ML SYR ONE (13:20)
[2020-03-21] MEDS ORDERED: LIDOCAINE VISCOUS 2% SOLN 15 ML UDC ONE (13:20)
[2020-03-21] MEDS ORDERED: NA CHLORIDE 0.9% 1,000 ML ONE (13:20)
[2020-03-21] MEDS ORDERED: FAMOTIDINE 20 MG/2 ML VIAL IV ONE (13:20)
[2020-03-21 13:40] LABS: Albumin 3.3 g/dL (3.4-5.0); Bilirubin Direct 0.1 mg/dL (0-0.2); Bilirubin Total 0.4 mg/dL (0.2-1.0); Potassium 3.9 mmol/L (3.5-5.1); Protein, Total 8.5 g/dL (6.4-8.2)
--- NOTE | 2020-03-21 13:42 | RAD REPORT ---
EXAM DESCRIPTION: CT - Abdomen Pelvis W Contrast - 03/21/2020 1:24 pm CLINICAL HISTORY: ABD PAIN COMPARISON: Abdomen Pelvis W Contrast dated 03/18/2020 TECHNIQUE: Biphasic, helical CT imaging of the abdomen and pelvis was performed following 100 ml non -ionic IV contrast. No oral contrast. All CT scans are performed using dose optimization technique as appropriate and may include automated exposure control or mA/KV adjustment according to patient size. FINDINGS: Minimal focus of ground-glass opacification is present in the anterior inferior aspect of the lingula at the left lung base. This is seen on the initial image and not fully assessed. If there is an additional 2-3 cm area of ground-glass opacification in the posterior gutter on the left. Inte rstitial thickening is present. No pleural effusions. No suspicious liver finding identified. A 2.6 centimeter thin-walled cyst is present medial right lob e near the IVC. This is unchanged. No portal vein abnormality. Spleen and pancreas show no suspicious findings. Gallbladder is absent. Biliary tree is normal size for a post cholecystectomy patient. Symmetric renal function is seen with no hydronephrosis or suspicious renal mass. No pyelonephritis o r acute parenchymal process. A 10 millimeter low-density mass lateral lower left kidney has not goyal ed over the short interval. Urinary bladder is contracted limiting assessment. No adrenal abnormaliti es. No suspicious uterine finding. A 17 millimeter area of increased attenuation or enhancement is se en along the right lateral fundus. This is believed to be a subserosal fibroid. No suspicious ovarian findings. Left ovary contains a 15 millimeter cyst similar to March 18 study. No fallopian tube dilat ation. No dilated bowel loops or bowel wall thickening. Appendix is normal. No free air, free fluid or infla mmatory stranding. No hernia, mass or bulky lymphadenopathy. Prominent degenerative disc disease and endplate spurring at L5-S1. IMPRESSION: Contrast enhanced CT abdomen and pelvis imaging shows no acute or emergent finding. Above detailed findings are without significant change from the March 18 study.
--- NOTE | 2020-03-21 14:18 | RAD REPORT ---
EXAM DESCRIPTION: RAD - Chest Single View - 03/21/2020 2:04 pm CLINICAL HISTORY: CONGESTION COMPARISON: Portable September 22 TECHNIQUE: AP portable chest image was obtained 03/21/2020 2:04 pm . FINDINGS: Low lung volumes are noted. Hazy left base opacification is present compared to the prior study. Earlier CT study showed 2 areas of left base ground-glass opacification. Mid left lung field i s somewhat hazy. No focal right lung field abnormality seen. Pacemaker is in place. Heart and vasculature are normal. No measurable pleural effusion and no pneumo thorax. No acute bony abnormality seen. No acute aortic findings suspected. IMPRESSION: Hazy left lower lung field opacification with CT imaging showing ground-glass opacificat ion. Early left lung field pneumonia changes are suspected. The unilateral lower lung field only abnormali ty does not elevate probability of a COVID-19 pneumonia versus other community-acquired infections.
--- NOTE | 2020-03-21 14:39 | ER ---
Nurse's Notes [facility] Name: Shelia Valentine Age: 69 yrs Sex: Female : 1950 Arrival Date: 03/21/2020 Time: 10:41 Bed 15 Private MD: Diagnosis: Cystitis, unspecified without hematuria;Pneumonia due to other specified infectious organisms Presentation: 03/21 10:59 Chief complaint: Patient states: headache, fever, chills, nausea, diarrhea vomiting, ss body aches that began last night. Denies cough/ shortness of breath. Coronavirus screen: Surgical mask placed on patient. Patient moved to private room, placed in contact and droplet isolation with eye protection until further assessment. Patient denies a cough. Patient denies shortness of breath or difficulty breathing. Patient reports a measured and/or subjective temperature greater than 100.4F. Patient denies travel on a cruise ship or to a country the [facility] currently lists as an affected area. Patient denies contact with known and/or suspected case of COVID-19. Ebola Screen: Patient denies exposure to infectious person. Patient denies travel to an Ebola-affected area in the 21 days before illness onset. Initial Sepsis Screen: Does the patient meet any 2 criteria? No. Patient's initial sepsis screen is negative. Does the patient have a suspected source of infection? No. Patient's initial sepsis screen is negative. Risk Assessment: Do you want to hurt yourself or someone else? Patient reports no desire to harm self or others. Onset of symptoms was March 20, 2020. 10:59 Method Of Arrival: Ambulatory 10:59 Acuity: ADDI 3 ss Historical: - Allergies: 11:01 Cipro; ss 11:01 Codeine; ss 11:01 Demerol; ss 11:01 HYDROCODONE; ss 11:01 Morphine; ss 11:01 PENICILLINS; ss 11:01 Sulfa (Sulfonamide Antibiotics); ss - PMHx: 11:01 BRADYCARDIA; CAD; chest pain; GERD; High Cholesterol; Hypertension; Kidney stones; ss Osteoporosis; Pancreatitis; Sleep Apnea; - PSHx: 11:01 Cholecystectomy; ; pacemaker; ss - Immunization history:: Adult Immunizations up to date. - Social history:: Smoking status: Patient denies any tobacco usage or history of. Patient/guardian denies using alcohol, street drugs, The patient lives with family. - Family history:: not pertinent. Screenin:10 Abuse screen: Denies threats or abuse. Nutritional screening: No deficits noted. ll1 Tuberculosis screening: No symptoms or risk factors identified. Fall Risk IV access (20 points). Total Bhatt Fall Scale indicates No Risk (0-24 pts). Assessment: 12:30 General: Appears in no apparent distress. Behavior is calm, cooperative, appropriate ll1 for age. Pain: Denies pain. 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 Full function Gait is steady, Speech is normal, Facial symmetry appears normal, Reports headache. Cardiovascular: No deficits noted. Respiratory: Airway is patent Trachea midline Respiratory effort is even, unlabored, Respiratory pattern is regular, symmetrical, Denies cough, shortness of breath. GI: Abdomen is flat, Bowel sounds present X 4 quads. Abd is soft and non tender X 4 quads. Reports cramping, diarrhea, nausea, vomiting. : No deficits noted. Musculoskeletal: Circulation, motion, and sensation intact. Capillary refill < 3 seconds, Range of motion: intact in all extremities, Reports body aches. 13:30 Reassessment: Patient appears in no apparent distress at this time. No changes from ll1 previously documented assessment. Patient and/or family updated on plan of care and expected duration. Pain level reassessed. Patient is alert, oriented x 3, equal unlabored respirations, skin warm/dry/pink. 14:30 Reassessment: Patient appears in no apparent distress at this time. No changes from ll1 previously documented assessment. Patient and/or family updated on plan of care and expected duration. Pain level reassessed. Patient is alert, oriented x 3, equal unlabored respirations, skin warm/dry/pink. Vital Signs: 10:59 BP 152 / 117; Pulse 87; Resp 16; Temp 100.7(O); Pulse Ox 95% on R/A; Weight 77.11 kg; ss Height 5 ft. 5 in. (165.10 cm); Pain 5/10; 14:09 BP 157 / 73; Pulse 70; Resp 17; ll1 15:06 BP 137 / 67; Pulse 63; Resp 17; Temp 98.5; Pulse Ox 96% ; Pain 0/10; ll1 10:59 Body Mass Index 28.29 (77.11 kg, 165.10 cm) ED Course: 10:41 Patient arrived in ED. mr 11:01 Triage completed. ss 11:01 Arm band placed on right wrist. ss 11:55 Junior Ibrahim, KOBI is Primary Nurse. ll1 11:56 Yolette Gorman MD is Attending Physician. ma2 12:00 Urine collected: clean catch specimen, clear, cloudy, leda colored. Patient maintains jp3 SpO2 saturation greater than 95% on room air. 12:13 Bed in low position. Call light in reach. Side rails up X 1. Warm blanket given. Verbal jp3 reassurance given. Pulse ox on. NIBP on. 12:25 Inserted saline lock: 22 gauge in right wrist, using aseptic technique. Blood collected.ll1 13:24 CT Abd/Pelvis - IV Contrast Only In Process Unspecified. EDMS 14:04 CXR XRAY In Process Unspecified. EDMS 15:06 IV discontinued, intact, bleeding controlled, No redness/swelling at site. Pressure ll1 dressing applied. 15:09 No provider procedures requiring assistance completed. ll1 Administered Medications: 13:42 Drug: NS 0.9% 1000 ml Route: IV; Rate: 1000 ml; Site: right wrist; ll1 15:04 Follow up: Response: No adverse reaction; RASS: Alert and Calm (0); IV Status: ll1 Completed infusion; IV Intake: 1000ml 13:45 Drug: Rocephin 1 grams Route: IV; Rate: calculated rate; Site: right wrist; ll1 13:45 Drug: Pepcid 10 mg Route: IVP; Site: right wrist; ll1 13:45 Drug: GI Cocktail without - (Maalox Suspension 30 ml, Lidocaine Liquid 2 % 15 ll1 ml) Route: PO; 13:45 Drug: Tylenol 1000 mg Route: PO; ll1 15:05 Follow up: Response: No adverse reaction; Temperature is decreased; RASS: Alert and ll1 Calm (0) 14:09 Drug: Zofran (Ondansetron) 4 mg Route: IVP; Site: right wrist; ll1 15:04 Follow up: Response: No adverse reaction; Nausea is decreased; RASS: Alert and Calm (0) ll1 15:04 Drug: AZITHromycin 500 mg Route: PO; ll1 15:05 Follow up: Response: No adverse reaction; RASS: Alert and Calm (0) 1 Intake: 15:04 IV: 1000ml; Total: 1000ml. 1 Outcome: 14:39 Discharge ordered by . bebe 15:08 Patient left the ED. ll1 15:09 Discharged to home ambulatory. ll1 15:09 Condition: stable 15:09 Discharge instructions given to patient, Instructed on discharge instructions, follow up and referral plans. medication usage, Demonstrated understanding of instructions, follow-up care, medications, Prescriptions given X 4. Signatures: Dispatcher [employer] Татьяна Vázquez Shelby, RN RN Yolette Elizalde MD MD al2 Royal Hodge Lynsay, RN RN 1
--- NOTE | 2020-03-21 14:39 | EDPHYS ---
Physician Documentation [facility] Name: Shelia Valentine Age: 69 yrs Sex: Female : 1950 Arrival Date: 03/21/2020 Time: 10:41 Bed 15 Private MD: ED Physician Yolette Gorman HPI: 03/21 12:33 This 69 yrs old Female presents to ER via Ambulatory with complaints of ma2 Vomiting. 12:45 The patient presents to the emergency department with nausea, vomiting. Onset: The ma2 symptoms/episode began/occurred gradually, 2 day(s) ago. Associated signs and symptoms: Pertinent negatives: belching, diarrhea, flatulence, GI bleeding. Severity of symptoms: At their worst the symptoms were moderate in the emergency department the symptoms are unchanged. The patient has not experienced similar symptoms in the past. Historical: - Allergies: 11:01 Cipro; ss 11:01 Codeine; ss 11:01 Demerol; ss 11:01 HYDROCODONE; ss 11:01 Morphine; ss 11:01 PENICILLINS; ss 11:01 Sulfa (Sulfonamide Antibiotics); ss - PMHx: 11:01 BRADYCARDIA; CAD; chest pain; GERD; High Cholesterol; Hypertension; Kidney stones; ss Osteoporosis; Pancreatitis; Sleep Apnea; - PSHx: 11:01 Cholecystectomy; ; pacemaker; ss - Immunization history:: Adult Immunizations up to date. - Social history:: Smoking status: Patient denies any tobacco usage or history of. Patient/guardian denies using alcohol, street drugs, The patient lives with family. - Family history:: not pertinent. ROS: 12:45 Constitutional: Negative for fever, chills, and weight loss, Eyes: Negative for injury, ma2 pain, redness, and discharge, ENT: Negative for injury, pain, and discharge, Cardiovascular: Negative for chest pain, palpitations, and edema. 12:45 All other systems are negative. Exam: 12:45 Constitutional: This is a well developed, well nourished patient who is awake, alert, ma2 and in no acute distress. Head/Face: Normocephalic, atraumatic. Eyes: Pupils equal round and reactive to light, extra-ocular motions intact. Lids and lashes normal. Conjunctiva and sclera are non-icteric and not injected. Cornea within normal limits. Periorbital areas with no swelling, redness, or edema. ENT: Nares patent. No nasal discharge, no septal abnormalities noted. Tympanic membranes are normal and external auditory canals are clear. Oropharynx with no redness, swelling, or masses, exudates, or evidence of obstruction, uvula midline. Mucous membranes moist. Neck: Trachea midline, no thyromegaly or masses palpated, and no cervical lymphadenopathy. Supple, full range of motion without nuchal rigidity, or vertebral point tenderness. No Meningismus. Chest/axilla: Normal chest wall appearance and motion. Nontender with no deformity. No lesions are appreciated. Cardiovascular: Regular rate and rhythm with a normal S1 and S2. No gallops, murmurs, or rubs. Normal PMI, no JVD. No pulse deficits. Respiratory: Lungs have equal breath sounds bilaterally, clear to auscultation and percussion. No rales, rhonchi or wheezes noted. No increased work of breathing, no retractions or nasal flaring. Abdomen/GI: Soft, non-tender, with normal bowel sounds. No distension or tympany. No guarding or rebound. No evidence of tenderness throughout. Skin: Warm, dry with normal turgor. Normal color with no rashes, no lesions, and no evidence of cellulitis. MS/ Extremity: Pulses equal, no cyanosis. Neurovascular intact. Full, normal range of motion. Neuro: Awake and alert, GCS 15, oriented to person, place, time, and situation. Cranial nerves II-XII grossly intact. Motor strength 5/5 in all extremities. Sensory grossly intact. Cerebellar exam normal. Normal gait. Vital Signs: 10:59 BP 152 / 117; Pulse 87; Resp 16; Temp 100.7(O); Pulse Ox 95% on R/A; Weight 77.11 kg; ss Height 5 ft. 5 in. (165.10 cm); Pain 5/10; 14:09 BP 157 / 73; Pulse 70; Resp 17; ll1 15:06 BP 137 / 67; Pulse 63; Resp 17; Temp 98.5; Pulse Ox 96% ; Pain 0/10; ll1 10:59 Body Mass Index 28.29 (77.11 kg, 165.10 cm) MDM: 11:56 Patient medically screened. ma2 12:45 Differential diagnosis: Nonspecific abd pain, gastritis, viral gastroenteritis, hi2 gastroenteritis. 14:37 Data reviewed: vital signs, nurses notes. Counseling: I had a detailed discussion with [facility] the patient and/or guardian regarding: the historical points, exam findings, and any diagnostic results supporting the discharge/admit diagnosis, the presence of at least one elevated blood pressure reading (>120/80) during this emergency department visit. Medical screen evaluation completed. EMTALA emergency medical condition absent. Response to treatment: the patient's symptoms have resolved after treatment. ED course: she is in good shape, although cxr shows pneumonia, patient is not in respiratory distress and vs wnl now, she prefer to go home.. i gave return precaution . 03/21 12:17 Order name: Urine Dipstick--Ancillary (enter results); Complete Time: 12:33 1 03/21 12:37 Order name: Blood Culture Adult (2) [facility] 03/21 12:37 Order name: BMP; Complete Time: 13:41 [facility] 03/21 12:37 Order name: CBC with Diff; Complete Time: 13:41 [facility] 03/21 12:37 Order name: Hepatic Function; Complete Time: 13:41 [facility] 03/21 12:37 Order name: Lipase; Complete Time: 13:41 [facility] 03/21 12:37 Order name: CT Abd/Pelvis - IV Contrast Only; Complete Time: 14:29 [facility] 03/21 12:37 Order name: CXR XRAY; Complete Time: 14:29 [facility] 03/21 12:37 Order name: COVID-19 [facility] 03/21 12:37 Order name: Flu; Complete Time: 14:29 [facility] 03/21 12:37 Order name: Strep; Complete Time: 14:29 [facility] 03/21 13:29 Order name: CREATININE WHOLE BLOOD; Complete Time: 13:41 [facility] 03/21 14:20 Order name: Throat Culture [facility] 03/21 12:37 Order name: EKG - Nurse/Tech; Complete Time: 15:16 [facility] 03/21 12:37 Order name: IV Saline Lock; Complete Time: 13:07 [facility] 03/21 12:37 Order name: Labs collected and sent; Complete Time: 13:07 [facility] 03/21 12:37 Order name: NPO; Complete Time: 13:07 [facility] 03/21 12:37 Order name: Document PUI#; Complete Time: 15:05 [facility] 03/21 12:37 Order name: Droplet/Contact Precautions; Complete Time: 13:18 [facility] 03/21 12:37 Order name: Notify Health Dept [phone]/ ; Complete Time: 15:05 [facility] 03/21 12:37 Order name: O2 Per Protocol; Complete Time: 13:18 [facility] 03/21 15:08 Order name: EKG Electrocardiogram; Complete Time: 15:10 EDMS Administered Medications: 13:42 Drug: NS 0.9% 1000 ml Route: IV; Rate: 1000 ml; Site: right wrist; ll1 15:04 Follow up: Response: No adverse reaction; RASS: Alert and Calm (0); IV Status: ll1 Completed infusion; IV Intake: 1000ml 13:45 Drug: Rocephin 1 grams Route: IV; Rate: calculated rate; Site: right wrist; ll1 13:45 Drug: Pepcid 10 mg Route: IVP; Site: right wrist; ll1 13:45 Drug: GI Cocktail without - (Maalox Suspension 30 ml, Lidocaine Liquid 2 % 15 ll1 ml) Route: PO; 13:45 Drug: Tylenol 1000 mg Route: PO; ll1 15:05 Follow up: Response: No adverse reaction; Temperature is decreased; RASS: Alert and ll1 Calm (0) 14:09 Drug: Zofran (Ondansetron) 4 mg Route: IVP; Site: right wrist; ll1 15:04 Follow up: Response: No adverse reaction; Nausea is decreased; RASS: Alert and Calm (0) ll1 15:04 Drug: AZITHromycin 500 mg Route: PO; ll1 15:05 Follow up: Response: No adverse reaction; RASS: Alert and Calm (0) ll1 Disposition: 03/21/20 14:39 Discharged to Home. Impression: Cystitis, unspecified without hematuria, Pneumonia due to other specified infectious organisms. - Condition is Stable. - Discharge Instructions: Urinary Tract Infection, Adult. - Prescriptions for Zofran 4 mg Oral Tablet - take 1 tablet by ORAL route every 12 hours As needed; 20 tablet. cefpodoxime 200 mg Oral Tablet - take 2 tablets by ORAL route every 12 hours with food; 10 tablet. Medrol (Boy) 4 mg Oral Tablets, Dose Pack - take 1 tablet by ORAL route as directed - follow package instructions; 1 packet. Zithromax Z- Boy 250 mg Oral Tablet - take 1 tablet by ORAL route as directed for 5 days Day 1 - take two (2) tablets one time. Day 2, 3, 4 , 5 take one (1) tablet once daily.; 6 tablet. - Medication Reconciliation Form, Thank You Letter, Antibiotic Education, Prescription Opioid Use form. - Follow up: Private Physician; When: Tomorrow; Reason: Continuance of care. Signatures: Dispatcher [employer] EDMS Deb Silverman RN RN ss Yolette Gorman MD MD ma2 Junior Ibrahim RN RN ll1 Corrections: (The following items were deleted from the chart) 15:08 14:39 03/21/2020 14:39 Discharged to Home. Impression: Cystitis, unspecified without ll1 hematuria; Pneumonia due to other specified infectious organisms. Condition is Stable. Prescriptions for Zofran 4 mg Oral Tablet - take 1 tablet by ORAL route every 12 hours As needed; 20 tablet, cefpodoxime 200 mg Oral Tablet - take 2 tablets by ORAL route every 12 hours with food; 10 tablet, Medrol (Boy) 4 mg Oral Tablets, Dose Pack - take 1 tablet by ORAL route as directed - follow package instructions; 1 packet. and Forms are Medication Reconciliation Form, Thank You Letter, Antibiotic Education, Prescription Opioid Use. Follow up: Private Physician; When: Tomorrow; Reason: Continuance of care. ma2
[2020-03-21] MEDS ORDERED: AZITHROMYCIN 250 MG TAB ONE (15:04)
[2020-03-21 15:45] VITALS: BP 137/67; TEMP 98.5; O2SAT 96
--- NOTE | 2020-03-22 08:57 | EKG ---
Test Date: 2020-03-21 Test Time: 14:06:39 Finger Grip Machine Operator: JHONATHAN MEASUREMENT RESULTS: Intervals: Rate: 72 KS: 218 QRSD: 154 QT: 470 QTc: 514 [place]: P: 42 KS: 218 QRS: 65 T: 183 INTERPRETIVE STATEMENTS: Electronic ventricular pacemaker Compared to ECG 03/18/2020 09:55:13 No significant changes Electronically Signed On 03-22-20 08:55:17 CDT by Sukhjinder Darnell
== END 2020-03-21 15:08 | disposition home or self-care (01) ==
LOC: ER 10:36
DX: N30.90 Cystitis, unspecified without hematuria (principal); Z20.828 Contact with and (suspected) exposure to other viral communicable diseases; J16.8 Pneumonia due to other specified infectious organisms; I10 Essential (primary) hypertension; Z95.0 Presence of cardiac pacemaker; Z88.2 Allergy status to sulfonamides; Z88.1 Allergy status to other antibiotic agents; Z88.5 Allergy status to narcotic agent; Z91.010 Allergy to peanuts
CPT/HCPCS: 96361; 93005; 87040 ×2; 87070; 85025; 80048; 36415; 82565; 80076; 87081; 81003; 83690; 87804 ×2; 74177; 71045; 96375; 96374; 99284; U0001; Q9967; J0696; J7030; J2405

== ENCOUNTER 2020-05-24 09:36 | Emergency (ER) | payer MEDICARE, OTHER ==
--- OUTSIDE RECORDS SUMMARY | 2020-05-24 09:37 | XMS REPORT | Continuity of Care Document ---
:1950 Author Organization [facility] t Address [address] [place] [place] [address] Care Team Providers Name Role Phone Navid Gould Attending Clinician Problems This patient has no known problems. Allergies, Adverse Reactions, Alerts This patient has no known allergies or adverse reactions. Medications This patient has no known medications. Procedures This patient has no known procedures. Encounters Start End Encounter Admission Attending Care Care Encounter Source Date/Time Date/Time Type Type Clinicians Facility Department ID 2020-05-15 2020-05-16 Emergency ALEX P[place] [id number] 21:47:00 01:20:00 Margaret Queen [id number] [place] [id number] [place] [id number] Results This patient has no known results.
--- OUTSIDE RECORDS SUMMARY | 2020-05-24 09:38 | XMS REPORT | Summary of Care ---
:1950 Author Organization [facility] - [facility] Address [address] [place] [id number] Care Team Providers Name Role Phone Pcp, Does Not Have A Primary Care Provider Reason for Referral Radiology Services (STAT) Status Reason Specialty Diagnoses / Referred By Referred To Procedures Contact Contact New Request Diagnostic Diagnoses Burning with urination Abdominal pain, unspecified abdominal location Non-intractable vomiting with nausea, unspecified vomiting type Diarrhea, unspecified type Margaret Pemberton, Radiology Procedures XR CHEST 1 VW PAC [address] [place] [address] [facility] [id number] Reason for Visit Reason Comments Other covid test Nausea Cough Auth/Cert Status Reason Specialty Diagnoses / Referred By Referred To Procedures Contact Contact Emergency Medicine Diagnoses NAUSEA AND COUGHING [facility] Emergency Dept [address] [place] [address] Fax: Encounter Details Date Type Department Care Team Description 05/15/2020 - Emergency ADC-Emergency PembertonMargaret tello S, Abdominal p ain, unspecified abdominal location (Primary Dx); 05/16/2020 Department PAC Burning with urination; [address] [place] [address] Non-intractable vomiting with nausea, un specified vomiting type; [place] [address] Diarrhea, unspecified type; [place] [address] Hypertension, unspecified type; [phone] Wheezing Allergies Active Allergy Reactions Severity Noted Date Comments Cephalexin Nausea Only 09/14/2007 Doxycycline Nausea Only 09/14/2007 Famotidine Nausea Only 09/14/2007 Hydroxyzine Nausea Only 09/14/2007 Ibuprofen Nausea Only 09/14/2007 Sulfa (Sulfonamide Nausea Only 09/14/2007 Antibiotics) Ondansetron Hcl (Pf) Itching 06/23/2018 Reactio n occurred in the ER. documented as of this encounter (statuses as of 05/16/2020) Medications Medication Sig Dispensed Refills Start Date End Date Status omeprazole Take 40 mg by 0 Activ e (PRILOSEC) 40 mg mouth daily. capsule fluticasone Use 1 Golden in 0 Act yelitza (FLONASE) 50 each nostril mcg/actuation daily. nasal Indications: 1 sprayIndications: Golden each 1 Golden each Nostril BID Nostril BID traZODONE Take 50 mg by 0 Active (DESYREL) 50 mg mouth at bedtime. tablet lisinopril Take 1 tablet by 60 tablet 3 07/20/2016 A ctive (PRINIVIL,ZESTRIL) mouth 2 (two) 20 mg tablet times daily. proMETHazine Insert 1 10 Suppository 0 04/01/2018 A ctive (PHENERGAN) 25 mg Suppository into suppository rectum every 6 (six) hours as needed for Nausea and Vomiting (N/V). dicyclomine Take 1 capsule by 20 capsule 0 06/23/2018 Active (BENTYL) 10 mg mouth 4 (four) capsule times daily. traMADOL 50 mg Take 1 tablet by 30 tablet 0 06/23/2018 Active tablet mouth every 6 (six) hours as needed for Pain (scale 4-6). albuterol 90 Inhale 2 Puffs 8.5 g 0 05/16/2020 A ctive mcg/actuation every 4 (four) inhalerIndications hours as needed : Wheezing for Wheezing or Shortness of Breath. documented as of this encounter (statuses as of 05/16/2020) Active Problems No known active problemsdocumented as of this encounter (statuses as of 05/16/2020) Social History Tobacco Use Types Packs/Day Years Used Date Former Smoker Smokeless Tobacco: Never Used Alcohol Use Drinks/Week oz/Week Comments No 0 Standard drinks or equivalent 0.0 Sex Assigned at Date Recorded Not on file COVID-19 Exposure Response Date Recorded In the last month, have you been in contact with Yes 05/15/2020 9:41 PM CDT someone who was confirmed or suspected to have Coronavirus / COVID-19? documented as of this encounter Last Filed Vital Signs Vital Sign Reading Time Taken Comments Blood Pressure 163/74 05/16/2020 1:00 AM CDT Pulse 64 05/16/2020 1:00 AM CDT Temperature 37.2 C (99 F) 05/15/2020 9:44 PM CDT Respiratory Rate 20 05/16/2020 1:00 AM CDT Oxygen Saturation 98% 05/16/2020 1:00 AM CDT Inhaled Oxygen Concentration - - Weight 77.1 kg (170 lb) 05/15/2020 9:44 PM CDT Height 152.4 cm (5') 05/15/2020 9:44 PM CDT Body Mass Index 33.2 05/15/2020 9:44 PM CDT documented in this encounter Discharge Instructions Margaret Melgoza, PAC - 05/16/2020DIAGNOSIS 1. Abdominal pain 2. Reflux 3. Constipation 4. Hypertension 5. Wheezing NO LIFE-THREATENING FINDINGS ON TODAY'S EXAM. PROCEDURES IN THE ER TODAY: none MEDICATIONS ADMINISTERED IN THE ER TODAY: Clonidine 0.1 mg Albuterol inhaler YOUR PRESCRIPTIONS AND NOWL-KUL-LHODPFD MEDICATION RECOMMENDATIONS: Take Miralax daily for constipation. Albuterol inhaler SPECIAL CARE INSTRUCTIONS: Take the medication recommended to help with constipation. Drink clear fluids and eat bland foods as tolerated. Return to the ER if your pain worsens, if you have vomiting that prevents you from keeping fluids down, if you develop a fever with your abdominal pain or if you are unable to drink enough fluids to urinate at least 3 times every 24 hours. Otherwise, if your symptoms are not improving in the next few days, follow up for re-evaluation withyour physician. Follow up with your primary care physician to re-check your wheezing and blood pressure. Make an appointment to see a GI specialist for further evaluation of your abdominal pain and reflux or vomiting. FOLLOW-UP RECOMMENDATIONS: RECOMMEND FOLLOW-UP WITH A PRIMARY CARE PROVIDER OR SPECIALIST IN 2-5 DAYS, ESPECIALLY IF NO IMPROVEMENT IN SYMPTOMS. TO FOLLOW-UP WITHIN THE [facility], TRY THESE OPTIONS (CLINIC APPOINTMENTS AVAILABLE ON [id number] BASIS): 1. SCHEDULE AN APPOINTMENT ONLINE AT WWW[facility] 2. OR CALL THE [facility] AT OR 3. OR CALL YOUR [facility] PHYSICIAN'S OFFICE DIRECTLY IF YOU ARE ALREADY AN ESTABLISHED [facility] PATIENT. OR, YOU MAY FOLLOW-UP WITH A PROVIDER OF YOUR CHOICE, SUCH : 1. A PHYSICIAN OF YOUR CHOICE 2. [facility], . LOCATIONS IN [facility] 3. [facility], [address] [place], [place]; [phone] RETURN TO ER FOR WORSENING OF SYMPTOMS. AttachmentsThe following attachments cannot be sent through Care Everywhere. Abdominal Pain, Adult (Wallisian)Acid Reflux, Tips to Control (Wallisian)documented in this encounter ED Notes Verona William RN - 05/15/2020 9:41 PM CDTCC: patient states her daughter had covid over a month ago. She states that she has a "little cough,vomited x1, and hard green poop x1 today." PMHx: HTN, Sick sinus syndrome PSH: pacemaker, gall bladder MEDS: unk Awake, alert, oriented, resp reg unlabored, skin warm and dry, color appropriate for race, moves allext without difficulty, amb with no assist Appears in no distress documented in this encounter Miscellaneous Notes ED Nurse Note - Meli Colorado RN - 05/16/2020 1:18 AM CDTPt given printed and verbal discharge instructions regarding abdominal pain, hypertension, vomiting,wheezing, and diarrhea, encouraged hydration. Prescriptions provided. Pt verbalized understanding of instructions, pt awake alert oriented, resp reg unlabored, skin w/d, color appropriate for race, moves all ext well, pt encouraged to follow up with PCP. Advised to seek medical attention for new/prolonged/worsening of symptoms. Symptoms addressed. No adverse reaction to meds given in ER noted upon discharge. PIV d'cd, dressing to site, catheter intact. Pt leaving amb with steady gait, in no apparent distress. D Nurse Note - Meli Colorado, RN - 05/16/2020 12:28 AM CDTCalled and informed lab that patient has add on blood work ordered. D Nurse Note - Jordana Espinosa RN - 05/15/2020 10:03 PM CDTPt adds that she had incontinence the other day, and wants her urine checked. documented in this encounter Plan of Treatment Health Maintenance Due Date Last Done Comments HEPATITIS C (HCV) SCREEN 1950 Depression Screening 1962 DTaP,Tdap,and Td Vaccines (1 - Tdap) 1969 Breast Cancer Screening (MAMMOGRAM) 1990 COLON CANCER SCREENING ANNUAL FIT/FOBT 2000 COLON CANCER SCREENING FIT DNA EVERY 3 YEARS 2000 COLON CANCER SCREENING SIGMOIDOSCOPY EVERY 5 YEARS 2000 COLONOSCOPY 2000 Colorectal Cancer Screening 2000 Zoster Recombinant Vaccine (SHINGRIX) (1 of 2) 2000 LUNG CANCER SCREEN: Recommended for age 55-80 with 30 + 12/04/19 06 pack year history Medicare Wellness Visit 12/04/2015 Osteoporosis Screening 12/04/2015 PNEUMOCOCCAL VACCINES 65+ (1 of 1 - PPSV23) 12/04/2015 INFLUENZA VACCINE (#1) 2020 documented as of this encounter Procedures Procedure Name Priority Date/Time Associated Comments Diagnosis EKG-12 LEAD Routine 05/16/2020 12:28 AM CDT COVID-19 (ID NOW STAT 05/15/2020 11:35 Burning with Results for this RAPID TESTING) PM CDT urination procedure are in Abdominal pain, the results unspecified section. abdominal locati on Non-intractable vomiting with nausea, unspecified vomiting type Diarrhea, unspecified type CBC WITH DIFF STAT 05/15/2020 11:35 Burning with Results fo r this PM CDT urination procedure are in Abdominal pain, the results unspecified section. abdominal locati on Non-intractable vomiting with nausea, unspecified vomiting type Diarrhea, unspecified type COMP. METABOLIC STAT 05/15/2020 11:35 Burning with Results for this PANEL (10930) PM CDT urination procedure are in Abdominal pain, the results unspecified section. abdominal locati on Non-intractable vomiting with nausea, unspecified vomiting type Diarrhea, unspecified type TROPONIN I STAT Add-On 05/15/2020 11:35 Burning with Results for this PM CDT urination procedure are i n the results section. LIPASE STAT 05/15/2020 11:35 Burning with Results for this PM CDT urination procedure are in Abdominal pain, the results unspecified section. abdominal locati on Non-intractable vomiting with nausea, unspecified vomiting type Diarrhea, unspecified type XR CHEST 1 VW STAT 05/15/2020 11:16 Burning with Results fo r this PM CDT urination procedure are in Abdominal pain, the results unspecified section. abdominal locati on Non-intractable vomiting with nausea, unspecified vomiting type Diarrhea, unspecified type URINALYSIS STAT 05/15/2020 10:08 Burning with Results for this PM CDT urination procedure are i n the results section. NOTICE OF PRIVACY Routine 05/15/2020 9:35 PRACTICES PM CDT CONSENT/REFUSAL FOR Routine 05/15/2020 9:34 DIAGNOSIS AND PM CDT TREATMENT documented in this encounter Results TROPONIN I (05/15/2020 11:35 PM CDT) Pathologist Sig nature TROPONIN I 0.029 <=0.034 ng/mL [facility] Specimen Blood - VENOUS Narrative Performed At Equal or Less than 0.034 ng/ml---Normal [facility] Note: Cardiac troponin begins to rise 3-4 hours after the onset of ischemia. Repeat in 4-6 hours if the sample was drawn within 3-4 hours of the onset of the symptom and found normal. Between 0.035 and 0.120 ng/mL--- Borderline. Questionable myocardial injury or necros is Note: Serial measurement may be necessary to confirm or exclude the diagnosis of myocardial injury or necrosis; Clinical correlation (symptoms, EKGs, imaging studies, and others) required; Repeat in 4-6 hours if clinically indicated. Equal or Higher than 0.121 ng/mL---Abnormal. Myocardial Injury or Necrosis Likely Biotin has been reported to cause a negative bias, interpret results relative to patient's use of biotin. Performing Organization Address City/State/Zipcode Phone Number [facility] CLIA: [id number] [place] [address] [place] [address] COVID-19 (ID NOW RAPID TESTING) (05/15/2020 11:35 PM CDT) SARS-CoV-2 Rapid ID Not Detected Not Detected [facility] Specimen Swab - NASOPHARYNGEAL SWAB Narrative Performed At ID NOW COVID-19 Assay is an isothermal nucleic [facility] acid amplification test intended for the qualitative detection of nucleic acid from SARS-CoV-2 viral RNA in nasopharyngeal (COUNTER SALES REPRESENTATIVE) specimens. It is used under Emergency Use Authorization (EUA) by FDA. The limit of detection (LOD) of the assay is 125 Genome Equivalents/mL. A positive result is indicative of the presence of SARS-CoV-2 RNA. Clinical correlation with patient history and other diagnostic information is necessary to determine patient infection status. A negative (Not Detected) result does not preclude SARS-CoV-2 infection. In patients with clinical symptoms and other tests that are consistent with SARS-CoV-2 infection, negative results should be treated as presumptive negative and a new specimen should be tested with alternative PCR molecular test. Invalid: Please collect a new specimen for repeat patient testing if clinically indicated. Performing Organization Address City/State/Zipcode Phone Number [facility] CLIA: [id number] [place] [address] LIPASE (05/15/2020 11:35 PM CDT) Pathologist Sig nature LIPASE 48 0 - 220 U/L [facility] Specimen Blood - VENOUS Performing Organization Address City/[facility]/Zipcode Phone Number [facility] CLIA: [id number] [place] [address] COMP. METABOLIC PANEL ([id number]) (05/15/2020 11:35 PM CDT) Pathologist Sig nature NA 140 135 - 145 [facility] mmol/L [facility] K 4.6 3.5 - 5.0 [facility] mmol/L [facility] CL 108 98 - 108 mmol/L [facility] CO2 TOTAL 29 23 - 31 mmol/L [facility] AGAP 3 2 - 16 [facility] BUN 18 7 - 23 mg/dL [facility] GLUCOSE 108 70 - 110 mg/dL [facility] CREATININE 0.92 0.50 - 1.04 [facility] mg/dL [facility] TOTAL BILI 0.4 0.1 - 1.1 mg/dL [facility] CALCIUM 9.3 8.6 - 10.6 [facility] mg/dL [facility] T PROTEIN 8.1 6.3 - 8.2 g/dL [facility] ALBUMIN 4.2 3.5 - 5.0 g/dL [facility] ALK PHOS 71 34 - 122 U/L [facility] ALTv 20 5 - 35 U/L [facility] AST(SGOT) 50 (H) 13 - 40 U/L [facility] eGFR Calculation 60.5 mL/min/1.73m2 [facility] (Non-) [facility] Y eGFR Calculation 73.4 mL/min/1.73m2 [facility] () [facility] Specimen Blood - VENOUS Narrative Performed At Association of Glomerular Filtration Rate (GFR) [facility] and Staging of Kidney Disease* + + +- + | GFR (mL/min/1.73 m2) | With Kidney Damage | Without Kidney Damage + + +- + | >90 | Stage one | Normal + + +- + | 60-89 | Stage two | Decreased GFR + + +- + | 30-59 | Stage three | Stage three + + +- + | 15-29 | Stage four | Stage four + + +- + | <15 (or dialysis) | Stage five | Stage five + + +- + *Each stage assumes the associated GFR level has been in effect for at least three months. Stages 1 to 5, with or without kidney disease, indicate chronic kidney disease. Notes: Determination of stages one and two (with eGFR >59mL/min/1.73 m2) requires estimation of kidney damage for at least three months as defined by structural or functional abnormalities of the kidney, manifested by either: Pathological abnormalities or Markers of kidney damage (including abnormalities in the composition of the blood or urine or abnormalities in imaging tests). Performing Organization Address City/State/Zipcode Phone Number [facility] CLIA: [id number] [place] [address] CBC WITH DIFF (05/15/2020 11:35 PM CDT) [facility] WBC 5.70 4.30 - 11.10 [facility] 10*3/L [facility] RBC 4.73 3.93 - 5.25 [facility] 10*6/L [facility] HGB 13.0 11.6 - 15.0 [facility] g/dL [facility] HCT 41.7 35.7 - 45.2 % [facility] MCV 88.2 80.6 - 95.5 fL [facility] MCH 27.5 25.9 - 32.8 pg [facility] MCHC 31.2 (L) 31.6 - 35.1 [facility] g/dL [facility] RDW-SD 49.1 39.0 - 49.9 fL [facility] RDW-CV 15.1 12.0 - 15.5 % [facility] PLT 214 166 - 358 [facility] 10*3/L [facility] MPV 9.8 9.5 - 12.9 fL [facility] NRBC/100 WBC 0.0 0.0 - 10.0 /100 [facility] WBCs [facility] NRBC x10^3 <0.01 10*3/L [facility] GRAN MAT (NEUT) % 50.8 % [facility] IMM GRAN % 0.40 % [facility] LYMPH % 39.1 % [facility] MONO % 7.7 % [facility] EOS % 1.6 % [facility] BASO % 0.4 % [facility] GRAN MAT x10^3(ANC) 2.90 1.88 - 7.09 [facility] 10*3/uL [facility]ITAL [facility] IMM GRAN x10^3 <0.03 0.00 - 0.06 [facility] 10*3/uL [facility] LYMPH x10^3 2.23 1.32 - 3.29 [facility] 10*3/uL [facility] MONO x10^3 0.44 0.33 - 0.92 [facility] 10*3/uL [facility]ITAL [facility] EOS x10^3 0.09 0.03 - 0.39 [facility] 10*3/uL [facility] BASO x10^3 <0.03 0.01 - 0.07 [facility] 10*3/uL [facility] Specimen Blood - VENOUS Performing Organization Address [facility]/Zipcode Phone Number [facility] CLIA: [id number] [place] [address] XR CHEST 1 VW (05/15/2020 11:16 PM CDT) Specimen Impressions Performed At PACS/VR/DOSE No acute cardiopulmonary abnormality. Preliminary Report Dictated by Resident: Prudencio Salazar MD., have reviewed this study and agree with the above report. Narrative Performed At EXAM: XR CHEST 1 VW PACS/VR/DOSE CLINICAL INDICATION: cough, wheezing COMPARISON: None FINDINGS: Left chest wall cardiac pacer tips termi myrtle in the right ventricle and right atrium. The lungs are well-expanded and clear without focal co nsolidation, pleural effusion, or pneumothorax. The cardiac silhouette is normal in size . The aortic knob is calcified. No acute osseous abnormality. Procedure Note [facility], Radiant Results Inft User - 2019 12:12 AM CDT EXAM: XR CHEST 1 VW CLINICAL INDICATION: cough, wheezing COMPARISON: None FINDINGS: Left chest wall cardiac pacer tips termi myrtle in the right ventricle and right atrium. The lungs are well-expanded and clear wi thout focal consolidation, pleural effusion, or pneumothorax. The cardiac silhouette is normal in size . The aortic knob is calcified. No acute osseous abnormality. IMPRESSION No acute cardiopulmonary abnormality. Preliminary Report Dictated by Resident: Prudencio Salazar MD., have r eviewed this study and agree with the above report. Performing Organization Address [facility]/Zipcode Phone Number [facility] URINALYSIS (05/15/2020 10:08 PM CDT) APPEARANCE Clear Clear [facility] COLOR Yellow Yellow [facility] PH 5.0 4.8 - 8.0 [facility] SP GRAVITY 1.023 1.003 - 1.030 [facility] GLU U QUAL Normal Normal [facility] BLOOD NegativeComment: Negative [facility] INTERFERENCE FROM HOSPITAL LABORATORY ASCORBIC ACID MAY CAUSE FALSE NEGATIVE RESULT KETONES Negative Negative [facility] PROTEIN Negative Negative [facility] UROBILIN Normal Normal [facility] BILIRUBIN Negative Negative [facility] NITRITE Negative Negative [facility] LEUK NESS Negative Negative [facility] RBC/HPF 2 0 - 3 HPF [facility] WBC/HPF 2 0 - 5 HPF [facility] BACTERIA Few (A) Negative [facility] MUCOUS Slight (A) Negative LPF [facility] SQ EPITH 2 HPF [facility] Specimen Urine - URINE, CLEAN CATCH Performing Organization Address City/State/Zipcode Phone Number [facility] CLIA: [id number] [place] [address] documented in this encounter Visit Diagnoses Diagnosis Abdominal pain, unspecified abdominal lo cation - Primary Burning with urination Dysuria Non-intractable vomiting with nausea, un specified vomiting type Diarrhea, unspecified type Hypertension, unspecified type Wheezing documented in this encounter Administered Medications Medication Order MAR Action Action Date Dose Rate Site albuterol (VENTOLIN) inhaler 2 Given 05/16/2020 1:12 AM CDT 2 P uffs Puff 2 Puff, Inhalation, ONCE, 1 dose, Tue05/16/20 at 0215, PAUL, Is this order for a patient with suspected or confirmed COVID-19 infection? No, Does this order have Pulmonary/Critical Care approval? Yes cloNIDine (CATAPRES) tablet 0.1 mg Given 05/16/2020 12:13 AM CDT 0.1 mg 0.1 mg, Oral, ONCE, 1 dose, Tue05/16/20 at 0100, STAT documented in this encounter Additional Health Concerns Infection Onset Date Last Indicated Resolved Time COVID-19 Rule Out 05/15/2020 05/15/2020 05/16/2020 12: 01 AM CDT documented as of this encounter Insurance Payer Benefit Plan / Subscriber ID Effective Dates Phone Addre ss Type Group MEDICARE MEDICARE PART [id number] 2015-[place] [phone] [address] Medicare A & B t 2 [id number] [place] [id number] [facility] MEDICAID OF [id number] 2018-[place] [phone] Medicaid [place] 0 [id number] [place] [address] (Work) [id number] documented as of this encounter
[2020-05-24] MEDS ORDERED: NA CHLORIDE 0.9% 1,000 ML ONE (10:48)
--- NOTE | 2020-05-24 10:56 | RAD REPORT ---
EXAM DESCRIPTION: RAD - Chest Single View - 05/24/2020 10:50 am CLINICAL HISTORY: COUGH Chest pain. COMPARISON: Chest Single View dated 03/21/2020; Chest Single View dated 09/22/2019; Chest Single View da daniel 12/04/2018; Chest Single View dated 09/05/2018 FINDINGS: Portable technique limits examination quality. The lungs are grossly clear. The heart is normal in size. No displaced fractures.Dual lead pacer debyb ce is in place. IMPRESSION: No acute intrathoracic process suspected.
[2020-05-24 11:17] LABS: Absolute Lymphocytes (CBC) 1.8 K/uL (0.7-4.9); Basophils % 0.4 % (0-1.3); Hematocrit 41.6 % (36.0-45.0); RBC Red Blood Cell Count 4.89 M/uL (3.86-4.86)
[2020-05-24 11:18] LABS: Urine Blood TRACE (NEG); Urine Glucose NEGATIVE (NEG); Urine Protein NEGATIVE (NEG); Urine pH 5.5 (5.0-7.0)
[2020-05-24 11:37] LABS: ALT/SGPT 24 U/L (12-78); AST/SGOT 21 U/L (15-37); Albumin 3.4 g/dL (3.4-5.0); Alkaline Phosphatase 84 U/L (45-117); BUN Blood Urea Nitrogen 15 mg/dL (7-18); Bicarbonate 31 mmol/L (21-32); Bilirubin Direct < 0.1 mg/dL (0-0.2); Bilirubin Total 0.2 mg/dL (0.2-1.0); Glucose Level 92 mg/dL (74-106); Lipase 59 U/L (73-393); Magnesium 2.4 mg/dL (1.8-2.4); NT PRO-BNP 93 pg/mL (<125); Potassium 4.7 mmol/L (3.5-5.1); Protein, Total 8.2 g/dL (6.4-8.2); Sodium Level 142 mmol/L (136-145); Troponin (Emerg Dept Use Only) < 0.02 ng/mL (0.0-0.045)
--- NOTE | 2020-05-24 12:05 | ER ---
Nurse's Notes [facility] Name: Shelia Valentine Age: 69 yrs Sex: Female : 1950 Arrival Date: 05/24/2020 Time: 09:38 Bed 13 Private MD: Diagnosis: Dysuria;Bronchitis, not specified as acute or chronic;Cystitis Presentation: 05/24 10:06 Chief complaint: Patient states: burning with urination, back pain, nausea X 3 days, no iw fever . Also has a cough for 5 days with green sputum. Coronavirus screen: cough unrelated to allergies, nausea, Client presents with at least one sign or symptom that may indicate coronavirus-19. Standard/surgical mask placed on the client. Provider contacted for isolation considerations. Ebola Screen: Patient negative for fever greater than or equal to 101.5 degrees Fahrenheit, and additional compatible Ebola Virus Disease symptoms Patient denies exposure to infectious person. Patient denies travel to an Ebola-affected area in the 21 days before illness onset. No symptoms or risks identified at this time. Onset of symptoms was May 20, 2020. 10:06 Method Of Arrival: Ambulatory iw 10:07 Risk Assessment: Do you want to hurt yourself or someone else? Patient reports no iw desire to harm self or others. 10:07 Acuity: ADDI 3 iw 10:14 Initial Sepsis Screen: Does the patient meet any 2 criteria? No. Patient's initial iw sepsis screen is negative. Does the patient have a suspected source of infection? No. Patient's initial sepsis screen is negative. Historical: - Allergies: 10:07 Cipro; iw 10:07 Codeine; iw 10:07 Demerol; iw 10:07 HYDROCODONE; iw 10:07 Morphine; iw 10:07 PENICILLINS; iw 10:07 Sulfa (Sulfonamide Antibiotics); iw - Home Meds: 10:15 lisinopril 20 mg Oral tab 1 tab twice daily [Active]; pantoprazole 40 mg Oral TbEC 1 iw tab once daily [Active]; meloxicam 7.5 mg Oral tab 1 tab twice a day [Active]; - PMHx: 10:07 BRADYCARDIA; CAD; chest pain; GERD; High Cholesterol; Hypertension; Kidney stones; iw Osteoporosis; Pancreatitis; Sleep Apnea; - PSHx: 10:07 Cholecystectomy; pacemaker; ; iw - Immunization history:: Adult Immunizations up to date. - Social history:: Smoking status: Patient denies any tobacco usage or history of. - Family history:: not pertinent. Screenin:00 Abuse screen: Denies threats or abuse. Nutritional screening: No deficits noted. aa5 Tuberculosis screening: No symptoms or risk factors identified. Fall Risk None identified. Assessment: 11:00 General: Appears comfortable, Behavior is calm, cooperative. Pain: Complains of pain in aa5 low back Pain does not radiate. Pain currently is 7 out of 10 on a pain scale. Quality of pain is described as sharp, Is continuous. Neuro: Level of Consciousness is awake, alert, obeys commands, Oriented to person, place, time, situation. Cardiovascular: Heart tones S1 S2 present Rhythm is regular. Respiratory: Reports cough that is productive, Airway is patent Respiratory effort is even, unlabored, Respiratory pattern is regular, symmetrical. GI: Abdomen is round non-distended, Bowel sounds present X 4 quads. Abd is soft and non tender X 4 quads. Reports nausea, Patient currently denies diarrhea, vomiting. : Reports burning with urination, urinary frequency. EENT: No signs and/or symptoms were reported regarding the EENT system. Derm: Skin is pink, warm \T\ dry. Musculoskeletal: Range of motion: intact in all extremities. 11:45 Reassessment: Patient is alert, oriented x 3, equal unlabored respirations, skin aa5 warm/dry/pink. Pt sitting up in bed, states no complaints at this time. . 12:40 Reassessment: Patient is alert, oriented x 3, equal unlabored respirations, skin aa5 warm/dry/pink. PT c/o increased back pain and nausea, MD was notified. . 13:30 Reassessment: Patient is alert, oriented x 3, equal unlabored respirations, skin aa5 warm/dry/pink. Patient states feeling better. Patient states symptoms have improved. Awaiting CT scan results for d/c home. . 13:30 Pain: Pain currently is 2 out of 10 on a pain scale. aa5 15:10 Reassessment: Patient is alert, oriented x 3, equal unlabored respirations, skin aa5 warm/dry/pink. Patient states feeling better. Patient states symptoms have improved. 15:10 Reassessment: Patient denies pain at this time. aa5 Vital Signs: 10:14 BP 195 / 86; Pulse 67; Resp 16 S; Temp 97.9; Pulse Ox 100% ; Weight 77.11 kg; Height 5 iw ft. 3 in. (160.02 cm); Pain 7/10; 11:00 BP 173 / 84; Pulse 75; Resp 20 S; Pulse Ox 100% on R/A; aa5 11:45 BP 179 / 74; Pulse 62; Resp 16 S; Pulse Ox 99% on R/A; aa5 13:30 BP 165 / 73; Pulse 62; Resp 18 S; Temp 98.0(TE); Pulse Ox 95% on R/A; aa5 15:00 BP 163 / 74; Pulse 62; Resp 16 S; Temp 98.2(TE); Pulse Ox 98% on R/A; aa5 10:14 Body Mass Index 30.11 (77.11 kg, 160.02 cm) iw ED Course: 09:38 Patient arrived in ED. as 10:08 Triage completed. iw 10:08 Arm band placed on. iw 10:16 Charlette Mohr, RN is Primary Nurse. aa5 10:16 Miguel Martinez MD is Attending Physician. arin 10:50 XRAY Chest (1 view) In Process Unspecified. EDMS 11:00 Patient has correct armband on for positive identification. Placed in gown. Bed in low aa5 position. Call light in reach. monitor technician on. Pulse ox on. NIBP on. 11:05 EKG done, by ED staff, reviewed by Miguel Martinez MD. aa5 11:06 Initial lab(s) drawn, by ky, sent to lab. Inserted saline lock: 20 gauge in left aa5 forearm, using aseptic technique. Blood collected. 11:08 Flu and/or RSV swab sent to lab. aa5 11:16 Warm blanket given. 5 11:16 Urine Culture Sent. 5 11:16 Urine collected: clean catch specimen, clear. mh5 13:27 CT Stone Protocol In Process Unspecified. EDMS 13:59 Mariano Peralta MD is Referral Physician. arin 15:10 No provider procedures requiring assistance completed. IV discontinued, intact, aa5 bleeding controlled, No redness/swelling at site. Pressure dressing applied. Administered Medications: 11:10 Drug: NS 0.9% 1000 ml Route: IV; Rate: 125 ml/hr; Site: left forearm; aa5 15:10 Follow up: IV Status: Order to discontinue infusion aa5 12:34 CANCELLED (MD changed order): Zithromax 500 mg IVPB once over 1 hrs; mix in 250 mL NS aa5 12:38 Drug: Rocephin 1 grams Route: IV; Rate: per protocol; Site: left forearm; aa5 12:45 Follow up: Response: No adverse reaction aa5 12:38 Drug: Zithromax 500 mg Route: PO; aa5 15:10 Follow up: Response: No adverse reaction aa5 12:49 Drug: Zofran (Ondansetron) 4 mg Route: IVP; Site: left forearm; aa5 12:55 Follow up: Response: No adverse reaction aa5 12:49 Drug: TORadol 30 mg Route: IVP; Site: left forearm; aa5 12:55 Follow up: Response: No adverse reaction aa5 Outcome: 12:05 Discharge ordered by MD. hinkle 15:15 Discharged to home ambulatory. aa5 15:15 Condition: improved 15:15 Discharge instructions given to patient, Instructed on discharge instructions, follow up and referral plans. medication usage, Demonstrated understanding of instructions, follow-up care, medications, Prescriptions given X 5 15:20 Patient left the ED. aa5 Signatures: Dispatcher [employer] EDMS Miguel Martinez MD MD cha Martinez, Amelia as Williams, Irene, RN RN iw Calderon, Audri, RN RN aa5 Martinez, Maria [facility] Corrections: (The following items were deleted from the chart) 10:14 10:06 Chief complaint: Patient states: burning with urination, back pain, nausea X 3 iw days, no fever iw 10:39 10:06 Coronavirus screen: At this time, the client does not indicate any symptoms aa5 associated with coronavirus-19. iw 13:48 13:30 Reassessment: Patient is alert, oriented x 3, equal unlabored respirations, skin aa5 warm/dry/pink. Awaiting CT scan results for d/c home. . aa5 13:48 13:48 Pain: Pain currently is 2 out of 10 on a pain scale. aa5 aa5 13:50 11:16 Patient has correct armband on for positive identification. Placed in gown. Bed aa5 in low position. Call light in reach. [facility] 13:50 11:16 monitor technician on. Pulse ox on. NIBP on. [facility] aa5 17:58 15:15 Discharge instructions given to patient, Instructed on discharge instructions, aa5 follow up and referral plans. medication usage, Demonstrated understanding of instructions, follow-up care, medications, aa5
--- NOTE | 2020-05-24 12:06 | EDPHYS ---
Physician Documentation [facility] Name: Shelia Valentine Age: 69 yrs Sex: Female : 1950 Arrival Date: 05/24/2020 Time: 09:38 Bed 13 Private MD: FIONA Physician Miguel Martinez HPI: 05/24 12:00 This 69 yrs old Female presents to ER via Ambulatory with complaints of Back arin Pain, Pain With Urination, Productive Cough. 12:00 The patient presents with pain that is chronic. The symptoms are located in the low arin back. Onset: The symptoms/episode began/occurred 3 day(s) ago. 12:00 The patient presents with urinary symptoms, dysuria, frequency. Onset: The arin symptoms/episode began/occurred 3 day(s) ago. Modifying factors: The symptoms are alleviated by nothing, the symptoms are aggravated by nothing. Associated signs and symptoms: Pertinent positives: dysuria. Associated signs and symptoms: The patient has no apparent associated signs or symptoms. Severity of symptoms: At their worst the symptoms were mild, in the emergency department the symptoms are unchanged. The problem was sustained from unknown cause. Historical: - Allergies: 10:07 Cipro; iw 10:07 Codeine; iw 10:07 Demerol; iw 10:07 HYDROCODONE; iw 10:07 Morphine; iw 10:07 PENICILLINS; iw 10:07 Sulfa (Sulfonamide Antibiotics); iw - Home Meds: 10:15 lisinopril 20 mg Oral tab 1 tab twice daily [Active]; pantoprazole 40 mg Oral TbEC 1 iw tab once daily [Active]; meloxicam 7.5 mg Oral tab 1 tab twice a day [Active]; - PMHx: 10:07 BRADYCARDIA; CAD; chest pain; GERD; High Cholesterol; Hypertension; Kidney stones; iw Osteoporosis; Pancreatitis; Sleep Apnea; - PSHx: 10:07 Cholecystectomy; pacemaker; ; iw - Immunization history:: Adult Immunizations up to date. - Social history:: Smoking status: Patient denies any tobacco usage or history of. - Family history:: not pertinent. ROS: 12:00 Constitutional: Negative for fever, chills, and weight loss, Eyes: Negative for injury, arin pain, redness, and discharge, ENT: Negative for injury, pain, and discharge, Neck: Negative for injury, pain, and swelling, Cardiovascular: Negative for chest pain, palpitations, and edema, Abdomen/GI: Negative for abdominal pain, nausea, vomiting, diarrhea, and constipation, Back: Negative for injury and pain, MS/Extremity: Negative for injury and deformity, Skin: Negative for injury, rash, and discoloration, Neuro: Negative for headache, weakness, numbness, tingling, and seizure, Psych: Negative for depression, anxiety, suicide ideation, homicidal ideation, and hallucinations, Allergy/Immunology: Negative for hives, rash, and allergies, Endocrine: Negative for neck swelling, polydipsia, polyuria, polyphagia, and marked weight changes, Hematologic/Lymphatic: Negative for swollen nodes, abnormal bleeding, and unusual bruising. 12:00 Respiratory: Positive for cough, shortness of breath. 12:00 Abdomen/GI: Positive for 12:00 : Positive for urinary frequency, burning with urination, bladder incontinence Exam: 12:00 Constitutional: This is a well developed, well nourished patient who is awake, alert, arin and in no acute distress. Head/Face: Normocephalic, atraumatic. Eyes: Pupils equal round and reactive to light, extra-ocular motions intact. Lids and lashes normal. Conjunctiva and sclera are non-icteric and not injected. Cornea within normal limits. Periorbital areas with no swelling, redness, or edema. ENT: Nares patent. No nasal discharge, no septal abnormalities noted. Tympanic membranes are normal and external auditory canals are clear. Oropharynx with no redness, swelling, or masses, exudates, or evidence of obstruction, uvula midline. Mucous membranes moist. Neck: Trachea midline, no thyromegaly or masses palpated, and no cervical lymphadenopathy. Supple, full range of motion without nuchal rigidity, or vertebral point tenderness. No Meningismus. Chest/axilla: Normal chest wall appearance and motion. Nontender with no deformity. No lesions are appreciated. Cardiovascular: Regular rate and rhythm with a normal S1 and S2. No gallops, murmurs, or rubs. Normal PMI, no JVD. No pulse deficits. Respiratory: Lungs have equal breath sounds bilaterally, clear to auscultation and percussion. No rales, rhonchi or wheezes noted. No increased work of breathing, no retractions or nasal flaring. Abdomen/GI: Soft, non-tender, with normal bowel sounds. No distension or tympany. No guarding or rebound. No evidence of tenderness throughout. Back: No spinal tenderness. No costovertebral tenderness. Full range of motion. Female : Normal external genitalia. Skin: Warm, dry with normal turgor. Normal color with no rashes, no lesions, and no evidence of cellulitis. MS/ Extremity: Pulses equal, no cyanosis. Neurovascular intact. Full, normal range of motion. Neuro: Awake and alert, GCS 15, oriented to person, place, time, and situation. Cranial nerves II-XII grossly intact. Motor strength 5/5 in all extremities. Sensory grossly intact. Cerebellar exam normal. Normal gait. Psych: Awake, alert, with orientation to person, place and time. Behavior, mood, and affect are within normal limits. 12:00 Abdomen/GI: Inspection: abdomen appears normal, Bowel sounds: normal, Palpation: abdomen is soft and non-tender, Indicators: none, Liver: no appreciated palpable abnormalities, Hernia: not appreciated. 12:08 ECG was reviewed by the Attending Physician. [facility] Vital Signs: 10:14 BP 195 / 86; Pulse 67; Resp 16 S; Temp 97.9; Pulse Ox 100% ; Weight 77.11 kg; Height 5 iw ft. 3 in. (160.02 cm); Pain 7/10; 11:00 BP 173 / 84; Pulse 75; Resp 20 S; Pulse Ox 100% on R/A; aa5 11:45 BP 179 / 74; Pulse 62; Resp 16 S; Pulse Ox 99% on R/A; aa5 13:30 BP 165 / 73; Pulse 62; Resp 18 S; Temp 98.0(TE); Pulse Ox 95% on R/A; aa5 15:00 BP 163 / 74; Pulse 62; Resp 16 S; Temp 98.2(TE); Pulse Ox 98% on R/A; aa5 10:14 Body Mass Index 30.11 (77.11 kg, 160.02 cm) iw MDM: 10:16 Patient medically screened. [facility] 12:03 Data reviewed: vital signs, nurses notes, lab test result(s), EKG, radiologic studies, [facility] plain films. 12:05 Differential diagnosis: menorrhea, ovarian cyst, Abdominal Aortic Aneurysm Basilar arin Pneumonia chronic back pain, Fracture Obesity Pyelonephritis sprain, urinary tract infection. Differential Diagnosis: Bronchitis Upper Respiratory Infection Pharyngitis Pneumonia. Data interpreted: residential monitor: rate is 75 beats/min, rhythm is regular, Pulse oximetry: on room air is 100 %. Test interpretation: by ED physician or midlevel provider: ECG, plain radiologic studies. Counseling: I had a detailed discussion with the patient and/or guardian regarding: the historical points, exam findings, and any diagnostic results supporting the discharge/admit diagnosis, lab results, radiology results, the need for outpatient follow up. 05/24 10:18 Order name: Basic Metabolic Panel; Complete Time: 11:58 [facility] 05/24 10:18 Order name: CBC with Diff; Complete Time: : [facility] 05/24 10:18 Order name: LFT's; Complete Time: :58 [facility] 05/24 10:18 Order name: Magnesium; Complete Time: 11:58 [facility] 05/24 10:18 Order name: NT PRO-BNP; Complete Time: :58 [facility] 05/24 10:18 Order name: Troponin (emerg Dept Use Only); Complete Time: :58 [facility] 05/24 10:18 Order name: XRAY Chest (1 view); Complete Time: :58 [facility] 05/24 10:18 Order name: Lipase; Complete Time: :58 [facility] 05/24 10:18 Order name: Urine Culture [facility] 05/24 10:29 Order name: Flu; Complete Time: 11:58 05/24 10:31 Order name: Urine Dipstick--Ancillary (enter results); Complete Time: 11:58 05/24 12:44 Order name: CT Stone Protocol; Complete Time: 13:57 [facility] 05/24 10:18 Order name: EKG; Complete Time: 10:18 [facility] 05/24 10:18 Order name: Cardiac monitoring; Complete Time: 11: [facility] 05/24 10:18 Order name: EKG - Nurse/Tech; Complete Time: 11: [facility] 05/24 10:18 Order name: IV Saline Lock; Complete Time: 11: [facility] 05/24 10:18 Order name: Labs collected and sent; Complete Time: 11:11 [facility] 05/24 10:18 Order name: O2 Per Protocol; Complete Time: 11: [facility] 05/24 10:18 Order name: O2 Sat Monitoring; Complete Time: 11:11 arin 05/24 10:18 Order name: Urine Dipstick-Ancillary (obtain specimen); Complete Time: 10:22 arin EC:08 Rate is 66 beats/min. Rhythm is regular. QRS Dickson is Normal. NH interval is normal. QRS arin interval is normal. QT interval is normal. No Q waves. T waves are Normal. No ST changes noted. Clinical impression: NSR w/ Non-specific ST/T Changes and No evidence of ischemia. Interpreted by me. Reviewed by me. Administered Medications: 11:10 Drug: NS 0.9% 1000 ml Route: IV; Rate: 125 ml/hr; Site: left forearm; aa5 15:10 Follow up: IV Status: Order to discontinue infusion aa5 12:34 CANCELLED (MD changed order): Zithromax 500 mg IVPB once over 1 hrs; mix in 250 mL NS aa5 12:38 Drug: Rocephin 1 grams Route: IV; Rate: per protocol; Site: left forearm; aa5 12:45 Follow up: Response: No adverse reaction aa5 12:38 Drug: Zithromax 500 mg Route: PO; aa5 15:10 Follow up: Response: No adverse reaction aa5 12:49 Drug: Zofran (Ondansetron) 4 mg Route: IVP; Site: left forearm; aa5 12:55 Follow up: Response: No adverse reaction aa5 12:49 Drug: TORadol 30 mg Route: IVP; Site: left forearm; aa5 12:55 Follow up: Response: No adverse reaction aa5 Disposition: 05/24/20 12:05 Discharged to Home. Impression: Dysuria, Bronchitis, not specified as acute or chronic, Cystitis. - Condition is Stable. - Discharge Instructions: Acute Bronchitis, Adult, Dysuria, Upper Respiratory Infection, Adult, Upper Respiratory Infection, Adult, Syqr-ca-[id number], Cough, Adult, [id number]-mr-[id number], Cough, Adult. - Prescriptions for Bromfed DM 2- 30-10 mg/5 mL Oral syrup - take 10 milliliter by ORAL route every 6 hours; 180 milliliter. Medrol (Boy) 4 mg Oral Tablets, Dose Pack - take 1 tablet by ORAL route as directed - follow package instructions; 1 packet. Albuterol Sulfate 90 mcg/actuation - inhale 1-2 puff by INHALATION route every 4-6 hours; 1 Inhaler. Zithromax 500 mg Oral Tablet - take 1 tablet by ORAL route once daily for 5 days; 5 tablet. cefdinir 300 mg Oral capsule - take 1 capsule by ORAL route every 12 hours for 7 days; 14 capsule. - Medication Reconciliation Form, Thank You Letter, Antibiotic Education, Prescription Opioid Use form. - Follow up: Private Physician; When: 2 - 3 days; Reason: Recheck today's complaints, Continuance of care, Re-evaluation by your physician. Follow up: Mariano Peralta MD; When: 2 - 3 days; Reason: Recheck today's complaints, Re-evaluation by your physician. - Problem is new. - Symptoms have improved. Signatures: Dispatcher [employer] [facility] Miguel Martinez MD MD cha Williams, Irene, RN Charlette Shannon RN RN aa5 Corrections: (The following items were deleted from the chart) 12:34 10:43 Zithromax 500 mg IVPB once over 1 hrs; mix in 250 mL NS ordered. arin aa5 12:34 12:34 Zithromax 500 mg IVPB once over 1 hrs; mix in 250 mL NS ordered. aa5 aa5 13:35 10:30 CORONAVIRUS+MR.LAB.BRZ ordered. [facility] 13:59 12:05 05/24/2020 12:05 Discharged to Home. Impression: Dysuria; Bronchitis, not arin specified as acute or chronic. Condition is Stable. Forms are Medication Reconciliation Form, Thank You Letter, Antibiotic Education, Prescription Opioid Use. Follow up: Private Physician; When: 2 - 3 days; Reason: Recheck today's complaints, Continuance of care, Re-evaluation by your physician. Problem is new. Symptoms have improved. [facility] 15:20 13:59 05/24/2020 12:05 Discharged to Home. Impression: Dysuria; Bronchitis, not aa5 specified as acute or chronic; Cystitis. Condition is Stable. Discharge Instructions: Acute Bronchitis, Adult, Dysuria, Upper Respiratory Infection, Adult, Upper Respiratory Infection, Adult, Fmyk-le-Ucin, Cough, Adult, Fbbq-[id number]-Boom, Cough, Adult. Prescriptions for Bromfed DM 2-30-10 mg/5 mL Oral syrup - take 10 milliliter by ORAL route every 6 hours; 180 milliliter, Medrol (Boy) 4 mg Oral Tablets, Dose Pack - take 1 tablet by ORAL route as directed - follow package instructions; 1 packet, Albuterol Sulfate 90 mcg/actuation - inhale 1-2 puff by INHALATION route every 4-6 hours; 1 Inhaler, Zithromax 500 mg Oral Tablet - take 1 tablet by ORAL route once daily for 5 days; 5 tablet. and Forms are Medication Reconciliation Form, Thank You Letter, Antibiotic Education, Prescription Opioid Use. Follow up: Private Physician; When: 2 - 3 days; Reason: Recheck today's complaints, Continuance of care, Re-evaluation by your physician. Follow up: Mariano Peralta; When: 2 - 3 days; Reason: Recheck today's complaints, Re-evaluation by your physician. Problem is new. Symptoms have improved. arin
[2020-05-24] MEDS ORDERED: AZITHROMYCIN 250 MG TAB ONE (12:28)
[2020-05-24] MEDS ORDERED: CEFTRIAXONE/SWI 1gm 1 GM/10 ML SYR ONE (12:28)
[2020-05-24] MEDS ORDERED: ONDANSETRON 4 MG/2 ML VIAL ONE (12:57)
[2020-05-24] MEDS ORDERED: KETOROLAC 30 MG/ML INJ ONE (12:57)
[2020-05-24] MEDS ORDERED: AZITHROMYCIN IV 500 MG in NA CHLORIDE 0.9% 250 ML IVPB ONE (13:00)
--- NOTE | 2020-05-24 13:41 | RAD REPORT ---
EXAM DESCRIPTION: CT - Stone Protocol - 05/24/2020 1:28 pm CLINICAL HISTORY: Flank pain. FLANK PAIN COMPARISON: Abdomen Pelvis W Contrast dated 03/21/2020 TECHNIQUE: Axial images were obtained without oral or IV contrast. Lack of contrast limits solid org an and vascular assessment. The [id number] spans the entirety of the system partially obscuring uppermost abdomen and lung bases. Coronal reformatted images were obtained and reviewed. All CT scans are performed using dose optimization technique as appropriate and may include automated exposure control or mA/KV adjustment according to patient size. FINDINGS: The lower lung lezama are clear. Pacemaker wires are noted. Small hiatal hernia. The liver contains a benign appearing cyst centrally measuring 28 mm. Cholecystectomy clips. The sple en is normal sized. The pancreas and adrenal glands are normal. No pathologic lymphadenopathy in the abdomen or pelvis. Small fat containing umbilical hernia. Punctate calculi are seen in the calices of both kidneys. No hydronephrosis. No bowel obstruction, free air, free fluid or abscess. Normal appendix noted. Moderate lower lumbar degenerative changes with posterior disc bulges. Tiny air bubble is present in urinary bladder. IMPRESSION: Tiny air bubble in the urinary bladder is noted likely indicating cystitis. Punctate bilateral nephrolithiasis. No hydronephrosis.
[2020-05-25 14:04] VITALS: BP 165/73; TEMP 98; O2SAT 95
--- NOTE | 2020-05-27 05:23 | EKG ---
Test Date: 2020-05-24 Test Time: 10:46:28 Sales And Marketing Professional: CASIMIRO MEASUREMENT RESULTS: Intervals: Rate: 66 RI: 214 QRSD: 146 QT: 486 QTc: 509 [place]: P: 58 RI: 214 QRS: 80 T: 187 INTERPRETIVE STATEMENTS: Sinus rhythm with 1st degree AV block Left bundle branch block Abnormal ECG Compared to ECG 03/21/2020 14:06:39 First degree AV block now present Left bundle-branch block now present Ventricular-paced complex(es) or rhythm no longer present Electronically Signed On 05-27-20 05:20:51 CDT by Sukhjinder Darnell
== END 2020-05-24 15:20 | disposition home or self-care (01) ==
LOC: ER 09:36
DX: N30.90 Cystitis, unspecified without hematuria (principal); J40 Bronchitis, not specified as acute or chronic; I10 Essential (primary) hypertension; E78.00 Pure hypercholesterolemia, unspecified; Z88.0 Allergy status to penicillin; Z88.1 Allergy status to other antibiotic agents; Z88.2 Allergy status to sulfonamides; Z88.5 Allergy status to narcotic agent
CPT/HCPCS: 96361; 93005; 87088; 85025; 87086; 80048; 36415; 83735; 80076; 81003; 84484; 83690; 83880; 87804 ×2; 76377; 74176; 71045; 96375; 96374; 99285; J0456; J0696; J7050; J7030; J2405

== ENCOUNTER 2020-10-04 00:21 | Emergency (ER) | payer MEDICARE, OTHER ==
--- OUTSIDE RECORDS SUMMARY | 2020-10-04 00:24 | XMS REPORT | Continuity of Care Document ---
:[address] [facility] t Address [address] [place] [place] [address] Care Team Providers Name Role Phone Navid [...] Department ID 2020-05-15 2020-05-16 Emergency ALEX Pemberton [id number] 21:47:00 01:20:00 Margaret Queen [id number] [place] [id number] [place] [id number] Results This patient has no known results.
[2020-10-04] MEDS ORDERED: ONDANSETRON 4 MG/2 ML VIAL ONE (00:47)
[2020-10-04] MEDS ORDERED: FAMOTIDINE 20 MG/2 ML VIAL IV ONE (00:47)
[2020-10-04] MEDS ORDERED: NA CHLORIDE 0.9% 1,000 ML ONE (00:47)
[2020-10-04 01:05] LABS: ALT/SGPT 22 U/L (12-78); AST/SGOT 23 U/L (15-37); Albumin 3.8 g/dL (3.4-5.0); Alkaline Phosphatase 89 U/L (45-117); BUN Blood Urea Nitrogen 24 mg/dL (7-18); Bicarbonate 28 mmol/L (21-32); Bilirubin Direct < 0.1 mg/dL (0-0.2); Bilirubin Total 0.3 mg/dL (0.2-1.0); Glucose Level 134 mg/dL (74-106); Lipase 75 U/L (73-393); Protein, Total 8.6 g/dL (6.4-8.2); Sodium Level 143 mmol/L (136-145)
[2020-10-04 01:29] LABS: Urine Blood TRACE (NEG); Urine Glucose NEGATIVE (NEG); Urine Protein NEGATIVE (NEG)
[2020-10-04 01:57] LABS: Absolute Lymphocytes (CBC) 1.7 K/uL (0.7-4.9); Basophils % 0.3 % (0-1.3); Hematocrit 37.9 % (36.0-45.0); Lymphocytes % 26.3 % (15.3-44.8); MPV 8.5 fL (7.6-11.3); RBC Red Blood Cell Count 4.35 M/uL (3.86-4.86)
[2020-10-04] MEDS ORDERED: ACETAMINOPHEN 500 MG TAB ONE (03:44)
--- NOTE | 2020-10-04 03:48 | EDPHYS ---
Physician Documentation [facility] Name: Shelia Valentine Age: 69 yrs Sex: Female : 1950 Arrival Date: 10/04/2020 Time: 00:23 Bed 7 Private MD: ED Physician Anil Lopez HPI: 10/04 00:31 This 69 yrs old Female presents to ER via EMS with complaints of Abdominal mh7 Pain. Vomiting.. 00:31 The patient presents with abdominal pain in the upper abdomen. mh7 00:32 Onset: The symptoms/episode began/occurred 3 day(s) ago. The symptoms radiate to the mh7 right flank. Associated signs and symptoms: Pertinent positives: nausea and vomiting, Pertinent negatives: anorexia, blood in stools, chest pain, constipation, diarrhea, dysuria, fever, headache, hematuria, palpitations, shortness of breath, vaginal discharge, vomiting blood. The symptoms are described as intermittent, vague, waxing/waning. Modifying factors: The symptoms are alleviated by nothing, the symptoms are aggravated by nothing. Severity of pain: At its worst the pain was moderate yesterday, in the emergency department the pain is unchanged. Historical: - Allergies: 00:27 Cipro; mg2 00:27 Codeine; mg2 00:27 Demerol; mg2 00:27 HYDROCODONE; mg2 00:27 Morphine; mg2 00:27 PENICILLINS; mg2 00:27 Sulfa (Sulfonamide Antibiotics); mg2 - Home Meds: 00:27 lisinopril 20 mg Oral tab 1 tab twice daily [Active]; meloxicam 7.5 mg Oral tab 1 tab mg2 twice a day [Active]; pantoprazole 40 mg Oral TbEC 1 tab once daily [Active]; - PMHx: 00:27 BRADYCARDIA; CAD; chest pain; GERD; High Cholesterol; Hypertension; Kidney stones; mg2 Osteoporosis; Pancreatitis; Sleep Apnea; - PSHx: 00:27 Cholecystectomy; mg2 - Immunization history:: Flu vaccine status is unknown. - Social history:: Smoking status: unknown. ROS: 00:32 Constitutional: Negative for fever, chills, and weight loss, Eyes: Negative for injury, mh7 pain, redness, and discharge, ENT: Negative for injury, pain, and discharge, Neck: Negative for injury, pain, and swelling, Cardiovascular: Negative for chest pain, palpitations, and edema, Respiratory: Negative for shortness of breath, cough, wheezing, and pleuritic chest pain, : Negative for injury, bleeding, discharge, and swelling, MS/Extremity: Negative for injury and deformity, Skin: Negative for injury, rash, and discoloration, Neuro: Negative for headache, weakness, numbness, tingling, and seizure, Psych: Negative for depression, anxiety, suicide ideation, homicidal ideation, and hallucinations, Allergy/Immunology: Negative for hives, rash, and allergies, Endocrine: Negative for neck swelling, polydipsia, polyuria, polyphagia, and marked weight changes, Hematologic/Lymphatic: Negative for swollen nodes, abnormal bleeding, and unusual bruising. Exam: 00:32 Head/Face: Normocephalic, atraumatic. Eyes: Pupils equal round and reactive to light, mh7 extra-ocular motions intact. Lids and lashes normal. Conjunctiva and sclera are non-icteric and not injected. Cornea within normal limits. Periorbital areas with no swelling, redness, or edema. Neck: Trachea midline, no thyromegaly or masses palpated, and no cervical lymphadenopathy. Supple, full range of motion without nuchal rigidity, or vertebral point tenderness. No Meningismus. Chest/axilla: Normal chest wall appearance and motion. Nontender with no deformity. No lesions are appreciated. Cardiovascular: Regular rate and rhythm with a normal S1 and S2. No gallops, murmurs, or rubs. Normal PMI, no JVD. No pulse deficits. Respiratory: Lungs have equal breath sounds bilaterally, clear to auscultation and percussion. No rales, rhonchi or wheezes noted. No increased work of breathing, no retractions or nasal flaring. 00:32 Skin: Warm, dry with normal turgor. Normal color with no rashes, no lesions, and no evidence of cellulitis. MS/ Extremity: Pulses equal, no cyanosis. Neurovascular intact. Full, normal range of motion. Neuro: Awake and alert, GCS 15, oriented to person, place, time, and situation. Cranial nerves II-XII grossly intact. Motor strength 5/5 in all extremities. Sensory grossly intact. Cerebellar exam normal. Normal gait. Psych: Awake, alert, with orientation to person, place and time. Behavior, mood, and affect are within normal limits. 00:32 Constitutional: The patient appears in no acute distress, alert, awake, uncomfortable. 00:32 Abdomen/GI: Inspection: obese scar(s), are noted in the suprapubic area and right upper quadrant, Bowel sounds: normal, in all quadrants, Palpation: moderate abdominal tenderness, in the epigastric area and left upper quadrant, Rectal exam: the exam is deferred, because of patient request, Indicators: McBurney's point is not tender, Dominguez's sign is negative, Rovsing's sign is negative, Obturator sign is negative, Psoas sign is negative, Liver: no appreciated palpable abnormalities, Hernia: not appreciated. 00:32 Back: ROM is normal, normal spinal alignment noted, CVA tenderness, that is mild, is noted on the right, vertebral tenderness, is not appreciated, muscle spasm, is not present. Vital Signs: 00:23 BP 153 / 97; Pulse 95; Resp 18; Temp 98.3; Pulse Ox 100% on R/A; mg2 01:48 BP 151 / 58; Pulse 75; Resp 18; Pulse Ox 98% on R/A; mg2 03:18 BP 138 / 83; Pulse 70; Resp 18; Pulse Ox 100% on R/A; mg2 MDM: 03:45 Differential diagnosis: bowel obstruction, gastritis, gastroesophageal reflux disease, mh7 non-specific abd pain, pancreatitis, Peptic Ulcer Disease, urinary tract infection. Data reviewed: vital signs, nurses notes, old medical records, lab test result(s), cardiac enzymes, CBC, electrolytes, urinalysis, EKG, radiologic studies, CT scan. Data interpreted: Pulse oximetry: on room air is 100 %. Interpretation: normal. Counseling: I had a detailed discussion with the patient and/or guardian regarding: the historical points, exam findings, and any diagnostic results supporting the discharge/admit diagnosis, the presence of at least one elevated blood pressure reading (>120/80) during this emergency department visit, lab results, radiology results, the need for outpatient follow up, to return to the emergency department if symptoms worsen or persist or if there are any questions or concerns that arise at home. Response to treatment: the patient's symptoms have markedly improved after treatment. 03:47 Patient medically screened. 7 10/04 00:26 Order name: Basic Metabolic Panel; Complete Time: 01:16 [facility] 10/04 00:26 Order name: CBC with Diff; Complete Time: 02:13 [facility] 10/04 00:26 Order name: Hepatic Function; Complete Time: :16 [facility] 10/04 00:26 Order name: Lipase; Complete Time: 01:16 [facility] 10/04 01:28 Order name: Urine Dipstick--Ancillary (enter results); Complete Time: 02:13 [facility] 10/04 02:32 Order name: Troponin (emerg Dept Use Only); Complete Time: 03:20 [facility] 10/04 00:26 Order name: IV Saline Lock; Complete Time: 00:47 [facility] 10/04 00:26 Order name: Labs collected and sent; Complete Time: 00:35 [facility] 10/04 00:27 Order name: CT Abd/Pelvis - IV Contrast Only [facility] 10/04 00:26 Order name: Urine Dipstick-Ancillary (obtain specimen); Complete Time: 01:28 [facility] Administered Medications: 00:46 Drug: NS 0.9% 1000 ml Route: IV; Rate: 1000 ml; Site: right wrist; mg2 03:18 Follow up: Response: No adverse reaction; IV Status: Completed infusion; IV Intake: mg2 1000ml 00:46 CANCELLED (Physician Discretion): morphine 4 mg IVP once; RASS on ADMIN: Combtv4, Very mg2 Agttd3, Agttd2, Rstlss1, AlertClm0, Drwsy-1, Lt Sdtn-2, Mod Sdtn-3, Dp Sdtn-4, UnArsble-5 00:46 Drug: Zofran (Ondansetron) 4 mg Route: IVP; Site: right wrist; mg2 03:18 Follow up: Response: No adverse reaction mg2 00:46 Drug: Pepcid 20 mg Route: IVP; Site: right wrist; mg2 03:18 Follow up: Response: No adverse reaction mg2 03:33 Drug: Tylenol 1000 mg Route: PO; mg2 04:00 Follow up: Response: No adverse reaction; Marked relief of symptoms mg2 Disposition: 10/04/20 03:47 Discharged to Home. Impression: Upper abdominal pain, unspecified, Nausea with vomiting, unspecified. - Condition is Stable. - Discharge Instructions: Nausea and Vomiting, Adult, [id number], Abdominal Pain, Adult, [id number]. - Prescriptions for Zofran ODT 4 mg Oral tablet,disintegrating - place 1 tablet by TRANSLINGUAL route every 8 hours As needed; 6 tablet. Bentyl 20 mg Oral Tablet - take 1 tablet by ORAL route every 6 hours As needed; 20 tablet. Pepcid 20 mg Oral Tablet - take 1 tablet by ORAL route every 12 hours for 5 days; 10 tablet. - Medication Reconciliation Form, Thank You Letter, Antibiotic Education, Prescription Opioid Use form. - Follow up: Private Physician; When: 1 - 2 days; Reason: Worsening of condition, Recheck today's complaints, Continuance of care, Re-evaluation by your physician. - Problem is an acute exacerbation. - Symptoms have improved. Signatures: Dispatcher [employer] EDMS Javed Maldonado RN RN mg2 Anil Lopez MD MD [facility] Corrections: (The following items were deleted from the chart) 00:46 00:26 morphine 4 mg IVP once; RASS on ADMIN: Combtv4, Very Agttd3, Agttd2, Rstlss1, mg2 AlertClm0, Drwsy-1, Lt Sdtn-2, Mod Sdtn-3, Dp Sdtn-4, UnArsble-5 ordered. [facility] 00:46 00:46 morphine 4 mg IVP once; RASS on ADMIN: Combtv4, Very Agttd3, Agttd2, Rstlss1, mg2 AlertClm0, Drwsy-1, Lt Sdtn-2, Mod Sdtn-3, Dp Sdtn-4, UnArsble-5 ordered. mg2 04:01 03:47 10/04/2020 03:47 Discharged to Home. Impression: Upper abdominal pain, mg2 unspecified; Nausea with vomiting, unspecified. Condition is Stable. Forms are Medication Reconciliation Form, Thank You Letter, Antibiotic Education, Prescription Opioid Use. Follow up: Private Physician; When: 1 - 2 days; Reason: Worsening of condition, Recheck today's complaints, Continuance of care, Re-evaluation by your physician. Problem is an acute exacerbation. Symptoms have improved. [facility]
--- NOTE | 2020-10-04 03:48 | ER ---
Nurse's Notes [facility] Name: Shelia Valentine Age: 69 yrs Sex: Female : 1950 Arrival Date: 10/04/2020 Time: 00:23 Bed 7 Private MD: Diagnosis: Upper abdominal pain, unspecified;Nausea with vomiting, unspecified Presentation: 10/04 00:23 Chief complaint: EMS states: she has epigastric pain radiating to the back and vomiting mg2 for 3 days . Coronavirus screen: Client denies travel out of the [place] in the last 14 days. Ebola Screen: No symptoms or risks identified at this time. Initial Sepsis Screen: Does the patient meet any 2 criteria? No. Patient's initial sepsis screen is negative. Does the patient have a suspected source of infection? No. Patient's initial sepsis screen is negative. Risk Assessment: Do you want to hurt yourself or someone else? Patient reports no desire to harm self or others. Onset of symptoms was October 02, 2020. 00:23 Method Of Arrival: EMS: [facility] mg2 00:23 Acuity: ADDI 3 mg2 Triage Assessment: 00:27 General: Appears in no apparent distress. comfortable, Behavior is calm, cooperative. mg2 Pain: Complains of pain in abdomen. EENT: No signs and/or symptoms were reported regarding the EENT system. Neuro: Level of Consciousness is awake, alert, obeys commands, Oriented to person, place, time, situation. Cardiovascular: Capillary refill < 3 seconds Patient's skin is warm and dry. Respiratory: Airway is patent Respiratory effort is even, unlabored, Respiratory pattern is regular, symmetrical. GI: Reports epigastric pain, vomiting. : No signs and/or symptoms were reported regarding the genitourinary system. Derm: Skin is intact, is healthy with good turgor, Skin is pink, warm \T\ dry. normal. Musculoskeletal: Circulation, motion, and sensation intact. Capillary refill < 3 seconds. Historical: - Allergies: 00:27 Cipro; mg2 00:27 Codeine; mg2 00:27 Demerol; mg2 00:27 HYDROCODONE; mg2 00:27 Morphine; mg2 00:27 PENICILLINS; mg2 00:27 Sulfa (Sulfonamide Antibiotics); mg2 - Home Meds: 00:27 lisinopril 20 mg Oral tab 1 tab twice daily [Active]; meloxicam 7.5 mg Oral tab 1 tab mg2 twice a day [Active]; pantoprazole 40 mg Oral TbEC 1 tab once daily [Active]; - PMHx: 00:27 BRADYCARDIA; CAD; chest pain; GERD; High Cholesterol; Hypertension; Kidney stones; mg2 Osteoporosis; Pancreatitis; Sleep Apnea; - PSHx: 00:27 Cholecystectomy; mg2 - Immunization history:: Flu vaccine status is unknown. - Social history:: Smoking status: unknown. Screenin:28 Abuse screen: Denies threats or abuse. Denies injuries from another. Nutritional mg2 screening: No deficits noted. Tuberculosis screening: No symptoms or risk factors identified. Fall Risk IV access (20 points). Assessment: 00:27 General: see triage note. mg2 01:49 Reassessment: Patient appears in no apparent distress at this time. Patient and/or mg2 family updated on plan of care and expected duration. Pain level reassessed. Patient is alert, oriented x 3, equal unlabored respirations, skin warm/dry/pink. 03:18 Reassessment: Patient appears in no apparent distress at this time. Patient and/or mg2 family updated on plan of care and expected duration. Pain level reassessed. Patient is alert, oriented x 3, equal unlabored respirations, skin warm/dry/pink. 04:01 Reassessment: Patient denies pain at this time. Patient states feeling better. Patient mg2 states symptoms have improved. Vital Signs: 00:23 BP 153 / 97; Pulse 95; Resp 18; Temp 98.3; Pulse Ox 100% on R/A; mg2 01:48 BP 151 / 58; Pulse 75; Resp 18; Pulse Ox 98% on R/A; mg2 03:18 BP 138 / 83; Pulse 70; Resp 18; Pulse Ox 100% on R/A; mg2 ED Course: 00:23 Patient arrived in ED. mg2 00:25 Anil Lopez MD is Attending Physician. 7 00:25 Triage completed. mg2 00:27 Arm band placed on. mg2 00:28 Patient has correct armband on for positive identification. mg2 00:28 No provider procedures requiring assistance completed. mg2 00:34 Keith Naqvi RN is Primary Nurse. rr5 00:35 Initial lab(s) drawn, by me, sent to lab. rr5 00:47 Inserted saline lock: 20 gauge in right wrist, using aseptic technique. Blood collected.mg2 01:53 CT Abd/Pelvis - IV Contrast Only In Process Unspecified. EDMS 04:01 IV discontinued, intact, bleeding controlled, No redness/swelling at site. Pressure mg2 dressing applied. Administered Medications: 00:46 Drug: NS 0.9% 1000 ml Route: IV; Rate: 1000 ml; Site: right wrist; mg2 03:18 Follow up: Response: No adverse reaction; IV Status: Completed infusion; IV Intake: mg2 1000ml 00:46 CANCELLED (Physician Discretion): morphine 4 mg IVP once; RASS on ADMIN: Combtv4, Very mg2 Agttd3, Agttd2, Rstlss1, AlertClm0, Drwsy-1, Lt Sdtn-2, Mod Sdtn-3, Dp Sdtn-4, UnArsble-5 00:46 Drug: Zofran (Ondansetron) 4 mg Route: IVP; Site: right wrist; mg2 03:18 Follow up: Response: No adverse reaction mg2 00:46 Drug: Pepcid 20 mg Route: IVP; Site: right wrist; mg2 03:18 Follow up: Response: No adverse reaction mg2 03:33 Drug: Tylenol 1000 mg Route: PO; mg2 04:00 Follow up: Response: No adverse reaction; Marked relief of symptoms mg2 Intake: 03:18 IV: 1000ml; Total: 1000ml. mg2 Outcome: 03:47 Discharge ordered by . rinku 04:01 Discharged to home ambulatory. mg2 04:01 Condition: stable 04:01 Discharge instructions given to patient, Instructed on discharge instructions, follow up and referral plans. Demonstrated understanding of instructions, follow-up care, medications, Prescriptions given X 3. 04:01 Patient left the ED. mg2 Signatures: Dispatcher [employer] EDMS Javed Maldonado RN RN mg2 Keith Naqvi RN RN rr5 Anil oLpez MD MD mh7
[2020-10-04 04:07] VITALS: TEMP 98.3
[2020-10-04 04:09] VITALS: BP 138/83; O2SAT 100
--- NOTE | 2020-10-04 22:05 | RAD REPORT ---
EXAM DESCRIPTION: CT ABDOMEN PELVIS WITH IV CONTRAST CLINICAL HISTORY: ABD PAIN TECHNIQUE: Contiguous axial images obtained through the abdomen and pelvis following the uneventful administration of IV contrast. Coronal and sagittal reformatted images were provided. This exam was performed according to our departmental dose-optimization program, which includes autom ated exposure control, adjustment of the mA and/or kV according to patient size and/or use of iterati ve reconstruction technique. COMPARISON: 03/21/2020 FINDINGS: Lung bases: Clear Liver: Stable 2.7 cm right hepatic cyst. Gallbladder and biliary system: Prior cholecystectomy. Pancreas: Unremarkable Spleen: Unremarkable Adrenals: Stable 1 cm homogeneous left adrenal nodule. Kidneys: Normal renal cortical enhancement. Stable 1 cm left renal cortical hypodensity which cannot be fully characterized. Tiny bilateral calculi. No hydronephrosis. Bowel: Colonic diverticula without adjacent inflammatory change. No obstruction. No appreciable mucos al thickening. Appendix: Normal caliber appendix. No findings to suggest acute appendicitis. Urinary bladder: Unremarkable Reproductive: 1.7 cm left ovarian cyst. Right anterior uterine fibroid. The right ovary is unremarkab le as visualized. Lymph nodes: No pathologically enlarged lymph nodes. Peritoneum: No focal fluid collection. No free air. Vessels: Mild atherosclerotic disease. No abdominal aortic aneurysm. Abdominal wall: Midline ventral abdominal wall incisional scar. Bones: Multilevel spondylosis. No acute fracture. IMPRESSION: 1. No acute inflammatory process identified within the abdomen and pelvis. 2. Stable 1 cm homogeneous left adrenal nodule most compatible with a benign adenoma. 3. 1.7 cm benign appearing left ovarian cyst. No follow-up imaging is recommended. Reference: J A m Maci Radiol 2013;10:675-681 4. Other findings as above. Electronically signed by: Elizabeth Dong MD 10/04/2020 2:09 AM [employer] Due to temporary technical issues with the PACS/Fluency reporting system, reports are being signed by the in house radiologists without review as a courtesy to insure prompt reporting. The interpreting radiologist is fully responsible for the content of the report.
== END 2020-10-04 04:01 | disposition home or self-care (01) ==
LOC: ER 00:21
DX: R11.2 Nausea with vomiting, unspecified (principal); I10 Essential (primary) hypertension; E78.00 Pure hypercholesterolemia, unspecified; I25.10 Atherosclerotic heart disease of native coronary artery without angina pectoris; Z88.0 Allergy status to penicillin; Z88.1 Allergy status to other antibiotic agents; Z88.2 Allergy status to sulfonamides; Z88.5 Allergy status to narcotic agent
CPT/HCPCS: 96361; 93005; 85025; 80048; 36415; 80076; 81003; 84484; 83690; 74177; 96375; 96374; 99284; Q9967; J7030; J2405

== ENCOUNTER 2021-01-24 20:20 | Emergency (ER) | payer MEDICARE, OTHER ==
--- OUTSIDE RECORDS SUMMARY | 2021-01-24 20:23 | XMS REPORT | Continuity of Care Document ---
:1950 Author Organization [facility] t Address [address] [place] [place] [address] Care Team Providers Name Role Phone Darrick LOYA Attending Clinician Niecy BALDERRAMA S Attending Clinician Problems This patient has no known problems. Allergies, Adverse Reactions, Alerts This patient has no known allergies or adverse reactions. Medications This patient has no known medications. Procedures This patient has no known procedures. Encounters Start End Encounter Admission Attending Care Care Encounter Source Date/Time Date/Time Type Type Clinicians Facility Department ID 2020-10-10 2020-10-[address] [id number] 15:39:00 18:33:00 Anabela Queen [id number] [place] [id number] [place] [id number] 2020-05-15 2020-05-16 Emergency [facility] [id number] 21:47:00 01:20:00 Margaret Queen [id number] [place] [id number] [place] [id number] Results This patient has no known results.
[2021-01-24 21:34] LABS: Urine Blood Trace-intact (Negative); Urine Glucose Negative (Negative); Urine Protein Negative (Negative); Urine Specific Gravity 1.025 (1.005-1.030); Urine pH 5.5 (5.0-7.0)
[2021-01-24] MEDS ORDERED: ONDANSETRON 4 MG (ODT) TAB ONE (22:41)
[2021-01-24 22:43] LABS: Absolute Lymphocytes (CBC) 1.7 K/uL (0.7-4.9); Basophils % 0.5 % (0-1.3); Hematocrit 39.1 % (36.0-45.0); Lymphocytes % 28.3 % (15.3-44.8); MPV 7.9 fL (7.6-11.3); RBC Red Blood Cell Count 4.64 M/uL (3.86-4.86)
[2021-01-24 22:48] LABS: Protime INR 0.92
[2021-01-24 23:01] LABS: ALT/SGPT 26 U/L (12-78); AST/SGOT 20 U/L (15-37); Albumin 3.6 g/dL (3.4-5.0); Alkaline Phosphatase 81 U/L (45-117); BUN Blood Urea Nitrogen 17 mg/dL (7-18); Bicarbonate 26 mmol/L (21-32); Bilirubin Direct < 0.1 mg/dL (0-0.2); Bilirubin Total 0.2 mg/dL (0.2-1.0); Glucose Level 107 mg/dL (74-106); Magnesium 2.4 mg/dL (1.8-2.4); NT PRO-BNP 45 pg/mL (<125); Potassium 4.2 mmol/L (3.5-5.1); Protein, Total 8.1 g/dL (6.4-8.2); Sodium Level 143 mmol/L (136-145); Troponin (Emerg Dept Use Only) < 0.02 ng/mL (0.0-0.045)
[2021-01-24] MEDS ORDERED: MAGNES/ALUMIN/SIMET 30ML UCUP ONE (23:02)
[2021-01-24] MEDS ORDERED: PANTOPRAZOLE 40 MG INJ ONE (23:02)
[2021-01-24] MEDS ORDERED: LIDOCAINE VISCOUS 2% SOLN 15 ML UDC ONE (23:02)
[2021-01-24 23:43] LABS: Calcium Oxalate Crystals- Ur MODERATE (NONE SEEN); Urine Bacteria 20-50 /HPF (<20); Urine Mucus 1+ /HPF (NONE SEEN); Urine RBC <5 /HPF (NONE SEEN); Urine Yeast FEW (NONE SEEN)
--- NOTE | 2021-01-25 00:09 | ER ---
Nurse's Notes [facility] Name: Shelia Valentine Age: 70 yrs Sex: Female : 1950 Arrival Date: 01/24/2021 Time: 20:31 Bed 18 Private MD: Diagnosis: Esophagitis, unspecified;Hypertensive headache;Headache;Hypertensive urgency Presentation: 01/24 21:19 Chief complaint: Patient states: Reports vomiting that began this evening, reports lp1 chest pain with vomiting; States burning with urination that began today; denies fever, diarrhea. Coronavirus screen: Client denies travel out of the [place] in the last 14 days. At this time, the client does not indicate any symptoms associated with coronavirus-19. Ebola Screen: No symptoms or risks identified at this time. Initial Sepsis Screen: Does the patient meet any 2 criteria? No. Patient's initial sepsis screen is negative. Does the patient have a suspected source of infection? No. Patient's initial sepsis screen is negative. Risk Assessment: Do you want to hurt yourself or someone else? Patient reports no desire to harm self or others. Onset of symptoms was January 24, 2021 at 18:00. 21:19 Method Of Arrival: Ambulatory lp1 21:19 Acuity: ADDI 3 lp1 Historical: - Allergies: 21:21 Cipro; lp1 21:21 Codeine; lp1 21:21 Demerol; lp1 21:21 HYDROCODONE; lp1 21:21 Morphine; lp1 21:21 PENICILLINS; lp1 21:21 Sulfa (Sulfonamide Antibiotics); lp1 - Home Meds: 21:21 lisinopril 20 mg Oral tab 1 tab twice daily [Active]; meloxicam 7.5 mg Oral tab 1 tab lp1 twice a day [Active]; pantoprazole 40 mg Oral TbEC 1 tab once daily [Active]; - PMHx: 21:21 BRADYCARDIA; CAD; chest pain; GERD; High Cholesterol; Hypertension; Kidney stones; lp1 Osteoporosis; Pancreatitis; Sleep Apnea; - Immunization history:: Adult Immunizations up to date. - Social history:: Smoking status: Patient denies any tobacco usage or history of. Screenin:00 Abuse screen: Denies threats or abuse. Nutritional screening: No deficits noted. jb4 Tuberculosis screening: No symptoms or risk factors identified. Fall Risk None identified. Assessment: 22:00 General: Appears in no apparent distress. comfortable, Behavior is calm, cooperative. jb4 Pain: Complains of pain in chest Pain does not radiate. Pain currently is 6 out of 10 on a pain scale. Quality of pain is described as burning. Neuro: Level of Consciousness is awake, alert, obeys commands, Oriented to person, place, time, situation. Cardiovascular: Patient's skin is warm and dry. Respiratory: Airway is patent Respiratory effort is even, unlabored, Respiratory pattern is regular, symmetrical. GI: No signs and/or symptoms were reported involving the gastrointestinal system. : No signs and/or symptoms were reported regarding the genitourinary system. EENT: No signs and/or symptoms were reported regarding the EENT system. Derm: Skin is intact, Skin is pink, warm \T\ dry. Musculoskeletal: Circulation, motion, and sensation intact. Range of motion:. 23:00 Reassessment: Patient appears in no apparent distress at this time. Patient and/or jb4 family updated on plan of care and expected duration. Pain level reassessed. Patient is alert, oriented x 3, equal unlabored respirations, skin warm/dry/pink. 01/25 00:44 Reassessment: Patient appears in no apparent distress at this time. Patient and/or jb4 family updated on plan of care and expected duration. Pain level reassessed. Patient is alert, oriented x 3, equal unlabored respirations, skin warm/dry/pink. Patient states feeling better. Vital Signs: 01/24 21:19 BP 173 / 89; Pulse 73; Resp 18; Temp 98.9(O); Pulse Ox 99% on R/A; Weight 77.11 kg (R); lp1 23:00 BP 151 / 63; Pulse 71; Resp 18; Pulse Ox 97% ; jb4 01/25 00:30 BP 154 / 65; Pulse 62; Resp 16; Pulse Ox 99% on R/A; jb4 Lizz Coma Score: 00:05 Eye Response: spontaneous(4). Verbal Response: oriented(5). Motor Response: obeys tw4 commands(6). Total: 15. ED Course: 01/24 20:31 Patient arrived in ED. cf2 21:20 Triage completed. lp1 21:20 Arm band placed on. lp1 22:00 Patient has correct armband on for positive identification. Bed in low position. Call jb4 light in reach. Side rails up X 1. Pulse ox on. NIBP on. 22:01 David Burden MD is Attending Physician. tw4 22:19 Herberth Figueroa, RN is Primary Nurse. jb4 22:30 Inserted saline lock: 18 gauge in right wrist, using aseptic technique. jb4 22:54 XRAY Chest (1 view) In Process Unspecified. EDMS 01/25 00:47 No provider procedures requiring assistance completed. IV discontinued, intact, jb4 bleeding controlled, No redness/swelling at site. Pressure dressing applied. Administered Medications: 01/24 22:20 Drug: Ondansetron 4 mg Route: PO; jb4 23:37 Follow up: Response: No adverse reaction; Marked relief of symptoms jb4 22:52 Drug: ProTONIX (pantoprazole) 40 mg Route: IVP; Site: right wrist; jb4 23:38 Follow up: Response: No adverse reaction jb4 22:54 Drug: GI Cocktail without - (Maalox Suspension 30 ml, Lidocaine Liquid 2 % 15 jb4 ml) Route: PO; 23:35 Follow up: Response: No adverse reaction; Marked relief of symptoms; Pain is decreased jb4 01/25 00:19 Drug: TORadol (ketorolac) 30 mg Route: IVP; Site: right hand; jb4 00:48 Follow up: Response: No adverse reaction jb4 Outcome: 00:09 Discharge ordered by . tw4 00:48 Discharged to home ambulatory. jb4 00:48 Condition: stable 00:48 Discharge instructions given to patient, Instructed on discharge instructions, follow up and referral plans. medication usage, Demonstrated understanding of instructions, follow-up care, medications, Prescriptions given X 3. 00:48 Patient left the ED. jb4 Signatures: Dispatcher [employer] EDWY Charlene Spann RN RN lp1 Herberth Figueroa, KOBI PEACE jb4 Dvaid Burden MD MD 4 Kacey Freire 2
--- NOTE | 2021-01-25 00:10 | EDPHYS ---
Physician Documentation [facility] Name: Shelia Valentine Age: 70 yrs Sex: Female : 1950 Arrival Date: 01/24/2021 Time: 20:31 Bed 18 Private MD: ED Physician David Burden HPI: 01/24 23:29 This 70 yrs old Female presents to ER via Ambulatory with complaints of tw4 Headache, Vomiting. 23:29 The patient complains of pain to the forehead. The patient describes the headache as tw4 pounding, a pressure. Onset: The symptoms/episode began/occurred just prior to arrival, today. Associated signs and symptoms: Pertinent positives: nausea, vomiting. Severity of symptoms: At its worst the pain was moderate, in the emergency department the pain has improved. Headache History: Denies prior headaches. The symptoms are alleviated by nothing. the symptoms are aggravated by nothing. The patient has not experienced similar symptoms in the past. Historical: - Allergies: 21:21 Cipro; lp1 21:21 Codeine; lp1 21:21 Demerol; lp1 21:21 HYDROCODONE; lp1 21:21 Morphine; lp1 21:21 PENICILLINS; lp1 21:21 Sulfa (Sulfonamide Antibiotics); lp1 - Home Meds: 21:21 lisinopril 20 mg Oral tab 1 tab twice daily [Active]; meloxicam 7.5 mg Oral tab 1 tab lp1 twice a day [Active]; pantoprazole 40 mg Oral TbEC 1 tab once daily [Active]; - PMHx: 21:21 BRADYCARDIA; CAD; chest pain; GERD; High Cholesterol; Hypertension; Kidney stones; lp1 Osteoporosis; Pancreatitis; Sleep Apnea; - Immunization history:: Adult Immunizations up to date. - Social history:: Smoking status: Patient denies any tobacco usage or history of. ROS: 23:29 Constitutional: Negative for fever, chills, and weight loss, Eyes: Negative for injury, tw4 pain, redness, and discharge, Cardiovascular: Negative for chest pain, palpitations, and edema, Respiratory: Negative for shortness of breath, cough, wheezing, and pleuritic chest pain. 23:29 Back: Negative for injury and pain, MS/Extremity: Negative for injury and deformity, Skin: Negative for injury, rash, and discoloration. 23:29 Abdomen/GI: Positive for nausea and vomiting, nausea, vomiting, and diarrhea, nausea, vomiting, Negative for abdominal pain, diarrhea, constipation, abdominal cramps, abdominal distension, dysphagia, black/tarry stool, rectal pain, rectal bleeding, bowel incontinence. 23:29 Neuro: Positive for headache, Negative for altered mental status, dizziness, gait disturbance, numbness, seizure activity, speech changes, syncope, near syncope, tingling, tinnitus, visual changes, weakness. Exam: 23:31 Constitutional: This is a well developed, well nourished patient who is awake, alert, tw4 and in no acute distress. Head/Face: Normocephalic, atraumatic. Chest/axilla: Normal chest wall appearance and motion. Nontender with no deformity. No lesions are appreciated. Cardiovascular: Regular rate and rhythm with a normal S1 and S2. No gallops, murmurs, or rubs. Normal PMI, no JVD. No pulse deficits. Respiratory: Lungs have equal breath sounds bilaterally, clear to auscultation and percussion. No rales, rhonchi or wheezes noted. No increased work of breathing, no retractions or nasal flaring. Abdomen/GI: Soft, non-tender, with normal bowel sounds. No distension or tympany. No guarding or rebound. No evidence of tenderness throughout. Back: No spinal tenderness. No costovertebral tenderness. Full range of motion. MS/ Extremity: Pulses equal, no cyanosis. Neurovascular intact. Full, normal range of motion. Neuro: Awake and alert, GCS 15, oriented to person, place, time, and situation. Cranial nerves II-XII grossly intact. Motor strength 5/5 in all extremities. Sensory grossly intact. Cerebellar exam normal. Normal gait. Vital Signs: 21:19 BP 173 / 89; Pulse 73; Resp 18; Temp 98.9(O); Pulse Ox 99% on R/A; Weight 77.11 kg (R); lp1 23:00 BP 151 / 63; Pulse 71; Resp 18; Pulse Ox 97% ; jb4 01/25 00:30 BP 154 / 65; Pulse 62; Resp 16; Pulse Ox 99% on R/A; jb4 Lizz Coma Score: 00:05 Eye Response: spontaneous(4). Verbal Response: oriented(5). Motor Response: obeys tw4 commands(6). Total: 15. MDM: 01/24 22:03 Patient medically screened. tw4 01/25 00:05 Differential diagnosis: cluster headache, hypertensive headache, hypoglycemia, tw4 hyponatremia, intracerebral hemorrhage, migraine, tension headache. Data reviewed: vital signs, nurses notes. Data interpreted: Pulse oximetry: Interpretation: normal. Test interpretation: by ED physician or midlevel provider: ECG, plain radiologic studies. Counseling: I had a detailed discussion with the patient and/or guardian regarding: the historical points, exam findings, and any diagnostic results supporting the discharge/admit diagnosis, the presence of at least one elevated blood pressure reading (>120/80) during this emergency department visit, lab results. Medication response: Zofran relieved the patient's nausea. Response to treatment: the patient's symptoms have markedly improved after treatment, and as a result, I will discharge patient. Special discussion: I discussed with the patient/guardian in detail that at this point there is no indication for admission to the hospital. It is understood, however, that if the symptoms persist or worsen the patient needs to return immediately for re-evaluation. 01/24 21:34 Order name: Urine Dipstick-Ancillary; Complete Time: 00:02 EDWV 01/25 00:02 Interpretation: Normal except: UBLD Trace-intact; UESTR Trace. 01/24 22:19 Order name: Basic Metabolic Panel; Complete Time: 00:02 [facility] 01/25 00:02 Interpretation: Normal except: GFR 66; GLUC 107; CL 112. [facility] 01/24 22:19 Order name: CBC with Diff; Complete Time: 00:02 tw4 01/25 00:02 Interpretation: Within normal limits. tw01/24 22:19 Order name: LFT's; Complete Time: 00:02 01/25 00:02 Interpretation: Normal except: GLOB 4.5; A/G 0.8. tw01/24 22:19 Order name: Magnesium; Complete Time: 00:02 tw4 01/25 00:02 Interpretation: MG 2.4. tw 01/24 22:19 Order name: NT PRO-BNP; Complete Time: 00:02 [facility] 01/25 00:02 Interpretation: NT PRO-BNP 45. tw01/24 22:19 Order name: PT-INR; Complete Time: 00:02 4 01/24 22:19 Order name: Troponin (emerg Dept Use Only); Complete Time: 00:02 01/25 00:02 Interpretation: Within normal limits: TROPED < 0.02. 01/24 22:19 Order name: XRAY Chest (1 view) [facility] 01/24 23:16 Order name: Urine Microscopic Only; Complete Time: 00:02 [facility] 01/25 00:02 Interpretation: Normal except: UWBC 5-10; UBACT 20-50; CAOX MODERATE. 01/24 23:17 Order name: Urine Culture [facility] 01/24 21:29 Order name: Urine Dipstick-Ancillary (obtain specimen); Complete Time: 22:05 [facility] 01/24 22:19 Order name: EKG; Complete Time: 22:19 01/24 22:19 Order name: Cardiac monitoring; Complete Time: 22:35 [facility] 01/24 22:19 Order name: EKG - Nurse/Tech; Complete Time: 22:36 01/24 22:19 Order name: IV Saline Lock; Complete Time: 22:36 01/24 22:19 Order name: Labs collected and sent; Complete Time: 22:36 01/24 22:19 Order name: O2 Per Protocol; Complete Time: 22:36 01/24 22:19 Order name: O2 Sat Monitoring; Complete Time: 22:36 tw4 EC:04 Rate is 64 beats/min. Rhythm is regular. QRS [place] is Normal. MS interval is normal. QRS tw4 interval is prolonged. No Q waves. T waves are Normal. No ST changes noted. Clinical impression: atrial paced rhythm. Interpreted by me. Reviewed by me. Administered Medications: 01/24 22:20 Drug: Ondansetron 4 mg Route: PO; jb4 23:37 Follow up: Response: No adverse reaction; Marked relief of symptoms jb4 22:52 Drug: ProTONIX (pantoprazole) 40 mg Route: IVP; Site: right wrist; jb4 23:38 Follow up: Response: No adverse reaction jb4 22:54 Drug: GI Cocktail without - (Maalox Suspension 30 ml, Lidocaine Liquid 2 % 15 jb4 ml) Route: PO; 23:35 Follow up: Response: No adverse reaction; Marked relief of symptoms; Pain is decreased jb4 01/25 00:19 Drug: TORadol (ketorolac) 30 mg Route: IVP; Site: right hand; jb4 00:48 Follow up: Response: No adverse reaction jb4 Disposition: 01/25/21 00:09 Discharged to Home. Impression: Esophagitis, unspecified, Hypertensive headache, Headache, Hypertensive urgency. - Condition is Stable. - Discharge Instructions: Esophagitis, General Headache Without Cause, Hypertension. - Prescriptions for Nexium 20 mg Oral Capsule - take 1 capsule by ORAL route once daily; 20 capsule. Zofran 4 mg Oral Tablet - take 1 tablet by ORAL route every 12 hours As needed; 6 tablet. Lisinopril 10 mg Oral Tablet - take 1 tablet by ORAL route once daily; 20 tablet. - Medication Reconciliation Form, Thank You Letter, Antibiotic Education, Prescription Opioid Use form. - Follow up: Private Physician; When: Upon discharge from the Emergency Department; Reason: Recheck today's complaints, Continuance of care, Re-evaluation by your physician. - Problem is new. - Symptoms have improved. Signatures: Dispatcher [employer] EDMS Charlene Spann RN RN lp1 Herberth Figueroa RN RN jb4 David Burden MD MD tw4 Corrections: (The following items were deleted from the chart) 00:10 00:09 01/25/2021 00:09 Discharged to Home. Impression: Esophagitis, unspecified; tw4 Hypertensive headache. Condition is Stable. Forms are Medication Reconciliation Form, Thank You Letter, Antibiotic Education, Prescription Opioid Use. Follow up: Private Physician; When: Upon discharge from the Emergency Department; Reason: Recheck today's complaints, Continuance of care, Re-evaluation by your physician. Problem is new. Symptoms have improved. tw4 00:48 00:10 01/25/2021 00:09 Discharged to Home. Impression: Esophagitis, unspecified; jb4 Hypertensive headache; Headache; Hypertensive urgency. Condition is Stable. Discharge Instructions: Esophagitis. Forms are Medication Reconciliation Form, Thank You Letter, Antibiotic Education, Prescription Opioid Use. Follow up: Private Physician; When: Upon discharge from the Emergency Department; Reason: Recheck today's complaints, Continuance of care, Re-evaluation by your physician. Problem is new. Symptoms have improved. tw4
[2021-01-25] MEDS ORDERED: KETOROLAC 30 MG/ML INJ ONE (00:31)
[2021-01-25 04:20] VITALS: TEMP 98.9
[2021-01-25 04:22] VITALS: BP 154/65; O2SAT 99
--- NOTE | 2021-01-25 08:57 | RAD REPORT ---
EXAM DESCRIPTION: Beena Single View01/24/2021 10:54 pm CLINICAL HISTORY: Chest pain COMPARISON: 2019 FINDINGS: The lungs appear clear of acute infiltrate. The heart is upper limits normal size. Pacema ker leads in place. IMPRESSION: No acute abnormalities displayed
--- NOTE | 2021-01-25 12:12 | EKG ---
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
== END 2021-01-25 00:48 | disposition home or self-care (01) ==
LOC: ER 20:20
DX: I16.0 Hypertensive urgency (principal); K20.90 Esophagitis, unspecified without bleeding; I10 Essential (primary) hypertension; E78.00 Pure hypercholesterolemia, unspecified; Z88.0 Allergy status to penicillin; Z88.1 Allergy status to other antibiotic agents; Z88.2 Allergy status to sulfonamides; Z88.5 Allergy status to narcotic agent
CPT/HCPCS: 93005; 87088; 85025; 87086; 80048; 36415; 83735; 85610; 80076; 84484; 83880; 71045; C9113; 81003; 81015; 99284

== ENCOUNTER 2021-05-08 09:31 | Emergency (ER) | payer OTHER ==
--- OUTSIDE RECORDS SUMMARY | 2021-05-08 09:34 | XMS REPORT | Continuity of Care Document ---
:1950 Author Organization [facility] t Address [address] [place] [place] [address] Care Team Providers Name Role Phone Doctor Unassigned, Name Attending Clinician Unavailable Darrick LOYA Attending Clinician Niecy BALDERRAMA, S Attending Clinician Problems This patient has no known problems. Allergies, Adverse Reactions, Alerts This patient has no known allergies or adverse reactions. Medications This patient has no known medications. Procedures This patient has no known procedures. Encounters Start End Encounter Admission Attending Care Care Encounter Source Date/Time Date/Time Type Type Clinicians Facility Department ID 2021-03-20 2021-03-20 Orders Doctor STEVENS [id number] 21 00:00:00 00:00:00 Only UnassignedHILARY [id number] [place] [facility] [id number] 2020-10-10 2020-10-10 Emergency ALEX [place] [id number] 15:39:00 18:33:00 Anabela Queen [id number] [place] [id number] [place] [id number] 2020-05-15 2020-05-16 Emergency ALEX [place] [id number] 21:47:00 01:20:00 Margaret Queen [id number] [place] [id number] [place] [id number] Results This patient has no known results.
[2021-05-08 13:57] LABS: Basophils % 0.3 % (0-1.3); Hematocrit 44.9 % (36.0-45.0); Lymphocytes % 29.7 % (15.3-44.8); RBC Red Blood Cell Count 5.33 M/uL (3.86-4.86)
[2021-05-08 14:14] LABS: Urine Blood 1+ (Negative); Urine Glucose Negative (Negative); Urine Protein Negative (Negative); Urine Specific Gravity >=1.030 (1.005-1.030); Urine pH 5.5 (5.0-7.0)
[2021-05-08 14:16] LABS: ALT/SGPT 32 U/L (12-78); Albumin 3.7 g/dL (3.4-5.0); Alkaline Phosphatase 100 U/L (45-117); BUN Blood Urea Nitrogen 17 mg/dL (7-18); Bicarbonate 30 mmol/L (21-32); Bilirubin Direct < 0.1 mg/dL (0-0.2); Bilirubin Total 0.3 mg/dL (0.2-1.0); Glucose Level 83 mg/dL (74-106); Lipase 59 U/L (73-393); Protein, Total 8.8 g/dL (6.4-8.2); Sodium Level 140 mmol/L (136-145)
[2021-05-08 14:17] LABS: AST/SGOT 23 U/L (15-37); Potassium 4.6 mmol/L (3.5-5.1)
[2021-05-08] MEDS ORDERED: HYDROCODONE/APAP 7.5/325 MG TAB ONE (14:38)
--- NOTE | 2021-05-08 15:02 | RAD REPORT ---
EXAM DESCRIPTION: RAD - Shoulder Right 2 View - 05/08/2021 2:46 pm CLINICAL HISTORY: Right shoulder pain FINDINGS: No fracture or dislocation is seen. Mild to moderate osteoarthritis involves the AC joint consisting of joint space narrowing and osteoph ytes. This may result in impingement syndrome.
[2021-05-08 15:15] LABS: Urine Bacteria 20-50 /HPF (<20); Urine RBC <5 /HPF (NONE SEEN)
[2021-05-08 15:16] LABS: Urine Trichomonas PRESENT (NONE SEEN)
[2021-05-08] MEDS ORDERED: ONDANSETRON 4 MG/2 ML VIAL ONE (15:28)
[2021-05-08] MEDS ORDERED: NA CHLORIDE 0.9% 500 ML ONE (16:10)
[2021-05-08] MEDS ORDERED: cloNIDine HCL 0.1 MG TAB ONE (16:50)
--- NOTE | 2021-05-08 17:46 | ER ---
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 Coronavirus da3 screen: Client denies travel out of the [place] in the last 14 days. Ebola Screen: No symptoms or risks identified at this time. Risk Assessment: Do you want to hurt yourself or someone else? Patient reports no desire to harm self or others. 09:47 Method Of Arrival: Ambulatory da3 09:47 Acuity: ADDI 3 da3 Triage Assessment: 09:51 General: Appears in no apparent distress. uncomfortable, Behavior is calm, cooperative. da3 Historical: - Allergies: 15:48 Cipro; vg1 15:48 Codeine; vg1 15:48 Demerol; vg1 15:48 HYDROCODONE; vg1 15:48 Morphine; vg1 15:48 PENICILLINS; vg1 15:48 Sulfa (Sulfonamide Antibiotics); vg1 - Home Meds: 15:48 lisinopril 20 mg Oral tab 1 tab twice daily [Active]; meloxicam 7.5 mg Oral tab 1 tab vg1 twice a day [Active]; pantoprazole 40 mg Oral TbEC 1 tab once daily [Active]; - PMHx: 15:55 BRADYCARDIA; CAD; chest pain; GERD; High Cholesterol; Hypertension; Kidney stones; vg1 Osteoporosis; Pancreatitis; Sleep Apnea; - Immunization history:: Client reports receiving the 2nd dose of the Covid vaccine. - Social history:: Smoking status: Patient denies any tobacco usage or history of. Screenin:53 Abuse screen: Denies threats or abuse. Nutritional screening: No deficits noted. vg1 Tuberculosis screening: No symptoms or risk factors identified. Fall Risk No fall in past 12 months (0 pts). No secondary diagnosis (0 pts). IV access (20 points). Ambulatory Aid- None/Bed Rest/Nurse Assist (0 pts). Gait- Normal/Bed Rest/Wheelchair (0 pts) Mental Status- Oriented to own ability (0 pts). Total Bhatt Fall Scale indicates No Risk (0-24 pts). Assessment: 13:50 General: Appears in no apparent distress. comfortable, Behavior is calm, cooperative. vg1 Pain: Complains of pain in Right shoulder, lower back and ABD Pain currently is 9 out of 10 on a pain scale. Pain began Right shoulder pain began 3 weeks ago, stated ABD pain began 3 days ago. Neuro: Level of Consciousness is awake, alert, obeys commands, Oriented to person, place, time, situation. Cardiovascular: Patient's skin is warm and dry. Respiratory: Airway is patent Respiratory effort is even, unlabored. GI: Reports diarrhea, nausea. : No signs and/or symptoms were reported regarding the genitourinary system. EENT: No signs and/or symptoms were reported regarding the EENT system. Derm: Skin is intact, is healthy with good turgor. Musculoskeletal: Circulation, motion, and sensation intact. 14:51 Reassessment: Patient appears in no apparent distress at this time. No changes from vg1 previously documented assessment. Patient and/or family updated on plan of care and expected duration. Pain level reassessed. Patient is alert, oriented x 3, equal unlabored respirations, skin warm/dry/pink. Rated pain 6/10. 15:09 Reassessment: Received VO from Dr Virk to adminsiter zofran 4 mg IVP x1. vg1 15:30 Reassessment: Pt had two episodes of diarrhea. Provider notified. vg1 16:00 Reassessment: Pt stated has not take blood pressure medication today. Stated takes vg1 Lisinopril 10 mg PO. Provider notified. 17:10 Reassessment: Patient appears in no apparent distress at this time. Patient and/or vg1 family updated on plan of care and expected duration. Pain level reassessed. Pt states nausea has subsided, stated pain in Right shoulder is back. Rated pain 8/10. Provider notified. 18:09 Reassessment: Patient appears in no apparent distress at this time. Patient and/or vg1 family updated on plan of care and expected duration. Pain level reassessed. Patient is alert, oriented x 3, equal unlabored respirations, skin warm/dry/pink. Patient states feeling better. Vital Signs: 09:48 BP 126 / 114; Pulse 83; Resp 18; Temp 98.5; Pulse Ox 98% on R/A; da3 13:54 BP 121 / 93; Pulse 73; Resp 16; Pulse Ox 97% on R/A; vg1 14:00 BP 132 / 81; Pulse 64; Resp 16; Pulse Ox 98% on R/A; vg1 15:00 BP 176 / 96; Pulse 60; Resp 16; Pulse Ox 96% on R/A; vg1 15:04 BP 171 / 95; Pulse 63; Resp 16; Pulse Ox 97% on R/A; vg1 15:11 Pain 6/10; vg1 16:00 BP 180 / 68; Pulse 60; Resp 16; Pulse Ox 95% on R/A; vg1 16:30 BP 156 / 87; Pulse 60; Resp 16; Pulse Ox 97% on R/A; vg1 17:00 BP 141 / 52; Pulse 63; Resp 16; Pulse Ox 98% on R/A; vg1 ED Course: 09:38 Patient arrived in ED. am2 09:39 Smooth Lynn is Private Physician. am2 09:48 Triage completed. da3 12:16 Ki Virk MD is Attending Physician. kdr 13:38 Patient has correct armband on for positive identification. Bed in low position. Call dw light in reach. Side rails up X2. 13:38 Inserted saline lock: 22 gauge in right wrist, using aseptic technique. Blood collected.dw 13:43 Sara Anthony, RN is Primary Nurse. vg1 13:54 Arm band placed on. vg1 13:54 No provider procedures requiring assistance completed. vg1 14:46 Shoulder Right (2 View) XRAY In Process Unspecified. EDMS 17:43 Smooth Lynn is Referral Physician. kdr 18:12 IV discontinued, intact, bleeding controlled, No redness/swelling at site. Pressure vg1 dressing applied. Administered Medications: 14:17 Drug: [place] (HYDROcodone-acetaminophen) (7.5 mg-325 mg) 1 tabs Route: PO; vg1 15:11 Follow up: Pain 6/10 Adult; Response: No adverse reaction; Marked relief of symptoms vg1 15:09 Drug: Zofran (Ondansetron) 4 mg Route: IVP; Site: right wrist; vg1 16:30 Follow up: Response: No adverse reaction vg1 15:56 Drug: NS 0.9% 500 ml Route: IV; Rate: bolus; Site: right wrist; vg1 16:20 Follow up: IV Status: Completed infusion; IV Intake: 500ml vg1 16:30 Drug: cloNIDine 0.2 mg Route: PO; vg1 17:57 Follow up: Response: No adverse reaction; Blood pressure is lowered vg1 18:09 Drug: Flagyl (metroNIDAZOLE) 2 grams Route: PO; vg1 18:14 Follow up: Response: Medication administered at discharge. vg1 Intake: 16:20 IV: 500ml; Total: 500ml. vg1 Outcome: 17:45 Discharge ordered by . kdr 18:11 Discharged to home ambulatory. vg1 18:11 Condition: stable 18:11 Discharge instructions given to patient, Instructed on discharge instructions, follow up and referral plans. medication usage, Demonstrated understanding of instructions, follow-up care, medications, Prescriptions given X 2. 18:14 Patient left the ED. vg1 Signatures: Dispatcher [employer] EDRI Concepcion Reid RN RN dw Ki Virk MD MD kdr Moreno, Amanda am2 Sara Anthony RN RN vg1 Randy Lin, RN RN da3 Corrections: (The following items were deleted from the chart) 15:12 14:51 Reassessment: Patient appears in no apparent distress at this time. No changes vg1 from previously documented assessment. Patient and/or family updated on plan of care and expected duration. Pain level reassessed. Patient is alert, oriented x 3, equal unlabored respirations, skin warm/dry/pink. vg1
--- NOTE | 2021-05-08 17:46 | EDPHYS ---
Physician Documentation [facility] Name: Shelia Valentine Age: 70 yrs Sex: Female : 1950 Arrival Date: 05/08/2021 Time: 09:38 Bed 24 Private MD: Smooth Lynn ED Physician Ki Virk HPI: 05/08 17:24 This 70 yrs old Female presents to ER via Ambulatory with complaints of Back kdr Pain, Diarrhea, Abdominal Pain, Shoulder Pain - right. 17:24 And has multiple complaints including right shoulder pain for about 3 weeks, low back kdr pain for a week or so, and intermittent brief and transient diarrhea. Her primary complaint and most significant seems to be her right shoulder pain. She denies any specific injury and had not had this pain prior to the last 3 weeks. Severity of symptoms: At their worst the symptoms were moderate. 19:10 The patient has not experienced similar symptoms in the past. The patient has not kdr recently seen a physician. 19:11 In review of the nursing notes, it is noted that the patient was complaining of kdr abdominal pain "9 out of 10". During the period of my exam, the patient primarily complained of her right shoulder. She had very little as any abdominal pain on exam. The shoulder pain started about 3 weeks ago and the abdominal pain began about 3 days ago.. Historical: - Allergies: 15:48 Cipro; vg1 15:48 Codeine; vg1 15:48 Demerol; vg1 15:48 HYDROCODONE; vg1 15:48 Morphine; vg1 15:48 PENICILLINS; vg1 15:48 Sulfa (Sulfonamide Antibiotics); vg1 - Home Meds: 15:48 lisinopril 20 mg Oral tab 1 tab twice daily [Active]; meloxicam 7.5 mg Oral tab 1 tab vg1 twice a day [Active]; pantoprazole 40 mg Oral TbEC 1 tab once daily [Active]; - PMHx: 15:55 BRADYCARDIA; CAD; chest pain; GERD; High Cholesterol; Hypertension; Kidney stones; vg1 Osteoporosis; Pancreatitis; Sleep Apnea; - Immunization history:: Client reports receiving the 2nd dose of the Covid vaccine. - Social history:: Smoking status: Patient denies any tobacco usage or history of. ROS: 19:11 Constitutional: Negative for fever, chills, and weight loss, Eyes: Negative for injury, kdr pain, redness, and discharge, ENT: Negative for injury, pain, and discharge, Neck: Negative for injury, pain, and swelling, Cardiovascular: Negative for chest pain, palpitations, and edema, Respiratory: Negative for shortness of breath, cough, wheezing, and pleuritic chest pain, : Negative for injury, bleeding, discharge, and swelling, Skin: Negative for injury, rash, and discoloration, Neuro: Negative for headache, weakness, numbness, tingling, and seizure activity. Psych: Negative for depression, anxiety, suicide ideation, homicidal ideation, and hallucinations, Allergy/Immunology: Negative for hives, rash, and allergies, Endocrine: Negative for neck swelling, polydipsia, polyuria, polyphagia, and marked weight changes, Hematologic/Lymphatic: Negative for swollen nodes, abnormal bleeding, and unusual bruising. 19:11 Abdomen/GI: Positive for abdominal pain, nausea, diarrhea, The patient has very brief and intermittent diarrhea. She also complains of occasional nausea but no vomiting. She also complains of very mild abdominal pain, Negative for Exam: 19:11 Constitutional: This is a well developed, well nourished patient who is awake, alert, kdr and in no acute distress. Head/Face: Normocephalic, atraumatic. Eyes: Pupils equal round and reactive to light, extra-ocular motions intact. Lids and lashes normal. Conjunctiva and sclera are non-icteric and not injected. Cornea within normal limits. Periorbital areas with no swelling, redness, or edema. Neck: Trachea midline, no thyromegaly or masses palpated, and no cervical lymphadenopathy. Supple, full range of motion without nuchal rigidity, or vertebral point tenderness. No Meningismus. Chest/axilla: Normal chest wall appearance and motion. Nontender with no deformity. No lesions are appreciated. Cardiovascular: Regular rate and rhythm with a normal S1 and S2. No gallops, murmurs, or rubs. Normal PMI, no JVD. No pulse deficits. Respiratory: Lungs have equal breath sounds bilaterally, clear to auscultation and percussion. No rales, rhonchi or wheezes noted. No increased work of breathing, no retractions or nasal flaring. Back: No spinal tenderness. No costovertebral tenderness. Full range of motion. Skin: Warm, dry with normal turgor. Normal color with no rashes, no lesions, and no evidence of cellulitis. MS/ Extremity: Pulses equal, no cyanosis. Neurovascular intact. Full, normal range of motion. Neuro: Awake and alert, GCS 15, oriented to person, place, time, and situation. Cranial nerves II-XII grossly intact. Motor strength 5/5 in all extremities. Sensory grossly intact. Cerebellar exam normal. Normal gait. Psych: Awake, alert, with orientation to person, place and time. Behavior, mood, and affect are within normal limits. 19:11 Abdomen/GI: Inspection: obese Bowel sounds: active, diminished, in all quadrants, Palpation: soft, Patient had very mild to minor lower abdominal pain with no rebound. The pain in her right shoulder far exceeded any discomfort she had anywhere else including her abdomen and back. She also had no other complaints including vaginal discharge or pain on urination. Vital Signs: 09:48 BP 126 / 114; Pulse 83; Resp 18; Temp 98.5; Pulse Ox 98% on R/A; da3 13:54 BP 121 / 93; Pulse 73; Resp 16; Pulse Ox 97% on R/A; vg1 14:00 BP 132 / 81; Pulse 64; Resp 16; Pulse Ox 98% on R/A; vg1 15:00 BP 176 / 96; Pulse 60; Resp 16; Pulse Ox 96% on R/A; vg1 15:04 BP 171 / 95; Pulse 63; Resp 16; Pulse Ox 97% on R/A; vg1 15:11 Pain 6/10; vg1 16:00 BP 180 / 68; Pulse 60; Resp 16; Pulse Ox 95% on R/A; vg1 16:30 BP 156 / 87; Pulse 60; Resp 16; Pulse Ox 97% on R/A; vg1 17:00 BP 141 / 52; Pulse 63; Resp 16; Pulse Ox 98% on R/A; vg1 MDM: 17:45 Patient medically screened. kdr 19:11 Data reviewed: vital signs, nurses notes, lab test result(s), radiologic studies. kdr Counseling: I had a detailed discussion with the patient and/or guardian regarding: the historical points, exam findings, and any diagnostic results supporting the discharge/admit diagnosis, lab results, radiology results, the need for outpatient follow up. Special discussion: Based on the patient's Hx, exam, and Dx evaluation, there is no indication for emergent surgery or inpatient Tx. It is understood by the patient/guardian that if the Sx's persist or worsen they need to return immediately for re-evaluation. I discussed with the patient/guardian in detail that at this point there is no indication for admission to the hospital. It is understood, however, that if the symptoms persist or worsen the patient needs to return immediately for re-evaluation. ED course: Patient has significant improvement with the interventions given. Her shoulder pain was particularly better. Her abdominal pain and low back pain improved mildly to moderately. She was able to take p.o. hydration without problems. Overall she was happy with the care provided and the plan for discharge and follow-up.. 05/08 12:17 Order name: Basic Metabolic Panel; Complete Time: 17:20 kdr 05/08 12:17 Order name: CBC with Diff; Complete Time: 17:20 kdr 05/08 12:17 Order name: Hepatic Function; Complete Time: 17:20 kdr 05/08 12:17 Order name: Lipase; Complete Time: 17:20 kdr 05/08 14:07 Order name: UA MICROSCOPIC; Complete Time: 17:20 dw 05/08 14:07 Order name: Urine Culture dw 05/08 12:17 Order name: IV Saline Lock; Complete Time: 13:47 kdr 05/08 13:49 Order name: Shoulder Right (2 View) XRAY; Complete Time: 17:20 kdr 05/08 14:15 Order name: Urine Dipstick-Ancillary; Complete Time: 17:20 EDMS 05/08 12:17 Order name: Labs collected and sent; Complete Time: 13:47 kdr 05/08 13:49 Order name: Urine Dipstick-Ancillary (obtain specimen); Complete Time: 14:07 kdr Administered Medications: 14:17 Drug: [place] (HYDROcodone-acetaminophen) (7.5 mg-325 mg) 1 tabs Route: PO; vg1 15:11 Follow up: Pain 6/10 Adult; Response: No adverse reaction; Marked relief of symptoms vg1 15:09 Drug: Zofran (Ondansetron) 4 mg Route: IVP; Site: right wrist; vg1 16:30 Follow up: Response: No adverse reaction vg1 15:56 Drug: NS 0.9% 500 ml Route: IV; Rate: bolus; Site: right wrist; vg1 16:20 Follow up: IV Status: Completed infusion; IV Intake: 500ml vg1 16:30 Drug: cloNIDine 0.2 mg Route: PO; vg1 17:57 Follow up: Response: No adverse reaction; Blood pressure is lowered vg1 18:09 Drug: Flagyl (metroNIDAZOLE) 2 grams Route: PO; vg1 18:14 Follow up: Response: Medication administered at discharge. 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 kdr - Diarrhea, unspecified kdr - Abdominal pain, Generalized - Minor kdr - Trichomoniasis, unspecified kdr Followup: kdr - With: Smooth Lynn - When: 2 - 3 days - Reason: If symptoms return, Further diagnostic work-up, Recheck today's complaints, Continuance of care, Re-evaluation by your physician Discharge Instructions: - Discharge Summary Sheet kdr - Abdominal Pain, Adult kdr - Shoulder Pain, [id number] kdr - Hypertension, Adult, [id number] kdr - Osteoarthritis kdr - Trichomoniasis kdr - Diarrhea, Adult, [id number] kdr Forms: - Medication Reconciliation Form kdr - Thank You Letter kdr - Prescription Opioid Use kdr Prescriptions: - Ibuprofen 600 mg Oral Tablet - take 1 tablet by ORAL route every 6 hours As needed take with food; 30 tablet; kdr Refills: 0, Product Selection Permitted - Zofran 4 mg Oral Tablet - take 1 tablet by ORAL route every 4-6 hours As needed; 16 tablet; Refills: 0, kdr Product Selection Permitted Signatures: Dispatcher [employer] Ki Gomez MD MD kdr Sara Anthony RN RN vg1 Randy Lin RN RN da3
[2021-05-08] MEDS ORDERED: metroNIDAZOLE 500 MG TABLET ONE (18:22)
[2021-05-08 18:48] VITALS: TEMP 98.5
[2021-05-08 18:58] VITALS: BP 141/52; O2SAT 98
== END 2021-05-08 18:14 | disposition home or self-care (01) ==
LOC: ER 09:31
DX: M19.011 Primary osteoarthritis, right shoulder (principal); A59.9 Trichomoniasis, unspecified; R19.7 Diarrhea, unspecified; R10.84 Generalized abdominal pain; I10 Essential (primary) hypertension; E78.00 Pure hypercholesterolemia, unspecified; Z88.0 Allergy status to penicillin; Z88.1 Allergy status to other antibiotic agents; Z88.2 Allergy status to sulfonamides; Z88.5 Allergy status to narcotic agent
CPT/HCPCS: 87088; 85025; 87086; 80048; 36415; 80076; 87077; 87186; 83690; 73030; 96374; 99284; J7040; J2405; 81003; 81015

== ENCOUNTER 2021-08-10 23:12 | Emergency (ER) | payer MEDICARE, OTHER ==
--- OUTSIDE RECORDS SUMMARY | 2021-08-10 23:16 | XMS REPORT | Continuity of Care Document ---
:1950 Author Organization [facility] t Address [address] [place] [address] Care Team Providers Name Role Phone ADY Attending Clinician Unavailable Doctor Unassigned, Name Attending Clinician Unavailable Yoko ROSE Attending Clinician Unavailable Darrick LOYA Attending Clinician Niecy BALDERRAMA S Attending Clinician Payers Payer Name Policy Type Policy Number Effective Date Expiration Date S ource MEDICAID OF [place] [id number] 2018 00:00:00 FITO/KRAIG [id number] 2019 MEDICARE ADVANTAGE 00:00:00 MEDICARE PART A [id number] 2015 \\T\\ B 00:00:00 Problems Condition Condition Condition Status Onset Resolution Last Treating Co mments Source Name Details Category Date Date Treatment Clinician Date No known No known Disease Unive rs active active ity of problems problems [facility] Allergies, Adverse Reactions, Alerts Allergy Allergy Status Severity Reaction(s) Onset Inactive Treating Comm ents Source Name Type Date Date Clinician ONDANSET DRUG Active ITCHING 2017-09 Univers TEDDY HCL 0-05 ity of (PF) 00:00: [place] [address] Medical Branch Ondanset Propensi Active Itching 2017-09 Reaction Uni vers teddy Hcl ty to 0-05 occurred ity of (Pf) adverse 00:00: in the [place] reaction 00 ER. Medical Branch Hydroxyz Propensi Active Nausea Only 2006-09 U nivers ine ty to 2-27 ity of adverse 00:00: [place] reaction 00 Medical s Branch Ibuprofe Propensi Active Nausea Only 2006-09 U nivers n ty to 2-27 ity of adverse 00:00: [place] reaction 00 Medical s Branch Sulfa Propensi Active Nausea Only 2006-09 Uni vers (Sulfona ty to 2-27 ity of mide adverse 00:00: [place] Antibiot reaction 00 Medica l ics) s Branch CEPHALEX DRUG Active NAUSEA ONLY 2006-09 Uni vers IN INGREDI 2-27 ity of 00:00: [place] 00 Medical Branch DOXYCYCL DRUG Active NAUSEA ONLY 2006-09 Uni vers INE INGREDI 2-27 ity of 00:00: [place] 00 Medical Branch FAMOTIDI DRUG Active NAUSEA ONLY 2006-09 Uni vers NE INGREDI 2-27 ity of 00:00: [place] 00 Medical Branch HYDROXYZ DRUG Active NAUSEA ONLY 2006-09 Uni vers INE INGREDI 2-27 ity of 00:00: [place] 00 Medical Branch IBUPROFE DRUG Active NAUSEA ONLY 2006-09 Uni vers N INGREDI 2-27 ity of 00:00: [place] 00 Medical Branch SULFA Drug Active NAUSEA ONLY 2006-09 Unive rs (SULFONA Class 2-27 ity of MIDE 00:00: [place] ANTIBIOT 00 Medical ICS) Branch Cephalex Propensi Active Nausea Only 2006-09 U nivers in ty to 2-27 ity of adverse 00:00: [place] reaction 00 Medical s Branch Doxycycl Propensi Active Nausea Only 2006-09 U nivers ine ty to 2-27 ity of adverse 00:00: [place] reaction 00 Medical s Branch Famotidi Propensi Active Nausea Only 2006-09 U nivers ne ty to 2-27 ity of adverse 00:00: [place] reaction 00 Medical s Branch Social History Social Habit Start Date Stop Date Quantity Comments Source Exposure to Not sure [facility] SARS-CoV-2 [facility] (event) Branch Tobacco use and 2020-10-10 2020-10-10 Never used Universit y of exposure 00:00:00 00:00:00 [facility] Alcohol intake 2020-10-10 2020-10-10 Current University of 00:00:00 00:00:00 non-drinker of [facility] alcohol Branch (finding) Sex Assigned At 1950-12-031950-12-03 Universit y of 00:00:00 00:00:00 [facility] Smoking Status Start Date Stop Date Source Former smoker 2020-10-10 00:00:00 2020-10-10 00:00:00 [facility] Medications Ordered Filled Start Stop Current Ordering Indication Dosage Frequency Signature Comments Components Source Medication Medication Date Date Medication? Clinician (SIG) Name Name ketorolac No 15mg 15 mg, Unive rs (TORADOL) 10-10 Slow IV ity of injection 23:00: 23:19 Push, [place] 15 mg 00 :00 ONCE, 1 Medical dose, Fri Branch 10/10/20 at 1700, PAUL
Fa culty member approving Restricted medication : EMERGENCY ROOM, methocarbam No 500mg 500 mg, U nivers oL 10-10 Oral, ONCE ity of (ROBAXIN) 23:00: 23:03 NOW, 1 [place] tablet 500 00 :00 dose, Fri Medi shahla mg 10/10/20 at Branch 1700, PAUL methocarbam Yes [id number] 750mg Take 1 Univers oL 750 mg 1-22 tablet by ity o f tablet 00:00: mouth 3 [place] 00 (three) Medical times Branch daily as needed (muscle pain). methocarbam Yes [id number] 750mg Take 1 Univers oL 750 mg 1-22 tablet by ity o f tablet 00:00: mouth 3 [place] 00 (three) Medical times Branch daily as needed (muscle pain). albuterol 2019- No 2{puff} 2 Puff, U nivers (VENTOLIN) 05-16 Inhalation it y of inhaler 2 07:15: 06:12 , [place] 1 [place] Puff 00 :00 dose, Fri Medical 05/16/20 at Branch 0215, PAUL
Is this order for a patient with suspected or confirmed COVID-19 infection? No
Does this order have Pulmonary/ Critical Care approval? Yes cloNIDine 2019- No .1mg 0.1 mg, Univ ers (CATAPRES) 05-16 Oral, ity of tablet 0.1 06:00: 05:13 ONCE, 1 [place] as mg 00 :00 dose, Fri Medical 05/16/20 at Branch 0100, STAT albuterol Yes [id number] 2{puff} Inhale 2 Univers 90 8-28 Puffs ity of mcg/actuati 00:00: every 4 [place] as on inhaler 00 (four) Medical hours as Branch needed for Wheezing or Shortness of Breath. albuterol Yes [id number] 2{puff} Inhale 2 Univers 90 8-28 Puffs ity of mcg/actuati 00:00: every 4 [place] as on inhaler 00 (four) Medical hours as Branch needed for Wheezing or Shortness of Breath. albuterol Yes [id number] 2{puff} Inhale 2 Univers 90 8-28 Puffs ity of mcg/actuati 00:00: every 4 [place] as on inhaler 00 (four) Medical hours as Branch needed for Wheezing or Shortness of Breath. dicyclomine 2017-09 Yes 10mg Take 1 Univ ers (BENTYL) 10 0-05 capsule by it y of mg capsule 00:00: mouth 4 [place] 00 (four) Medical times Branch daily. traMADOL 50 2017-09 Yes 50mg Take 1 Univ ers mg tablet 0-05 tablet by ity o f 00:00: mouth [place] 00 every 6 Medical (six) Branch hours as needed for Pain (scale 4-6). dicyclomine 2017-09 Yes 10mg Take 1 Univ ers (BENTYL) 10 0-05 capsule by it y of mg capsule 00:00: mouth 4 [place] 00 (four) Medical times Branch daily. traMADOL 50 2017-09 Yes 50mg Take 1 Univ ers mg tablet 0-05 tablet by ity o f 00:00: mouth [place] 00 every 6 Medical (six) Branch hours as needed for Pain (scale 4-6). dicyclomine 2017-09 Yes 10mg Take 1 Univ ers (BENTYL) 10 0-05 capsule by it y of mg capsule 00:00: mouth 4 [place] 00 (four) Medical times Branch daily. traMADOL 50 2017-09 Yes 50mg Take 1 Univ ers mg tablet 0-05 tablet by ity o f 00:00: mouth [place] 00 every 6 Medical (six) Branch hours as needed for Pain (scale 4-6). proMETHazin 2018-0 Yes 25mg Insert 1 Un michele e 7-14 Suppositor ity of (PHENERGAN) 00:00: y into [place] 25 mg 00 rectum Medical suppository every 6 Branc h (six) hours as needed for Nausea and Vomiting (N/V). proMETHazin 2018-0 Yes 25mg Insert 1 Un michele e 7-14 Suppositor ity of (PHENERGAN) 00:00: y into [place] 25 mg 00 rectum Medical suppository every 6 Branc h (six) hours as needed for Nausea and Vomiting (N/V). proMETHazin 2018-0 Yes 25mg Insert 1 Un michele e 7-14 Suppositor ity of (PHENERGAN) 00:00: y [place] 25 mg 00 rectum Medical suppository every 6 Branc h (six) hours as needed for Nausea and Vomiting (N/V). fluticasone 2015-09 Yes 1{spray Use 1 Un michele (FLONASE) 1-01 } [place] in ity of 50 15:14: each [place] mcg/actuati 28 nostril Medic al on nasal daily. Branch spray Indication s: 1 [place] each Nostril BID traZODONE 2015-09 Yes 50mg Take 50 mg Un michele (DESYREL) 1-01 by mouth ity of 50 mg 15:14: at [place] tablet 28 bedtime. Medical Branch fluticasone 2015-09 Yes 1{spray Use 1 Un michele (FLONASE) 1-01 } [place] ity of 50 15:14: each [place] mcg/actuati 28 nostril Medic al on nasal daily. Branch spray Indication s: 1 [place] each Nostril BID traZODONE 2015-09 Yes 50mg Take 50 mg Un michele (DESYREL) 1-01 by mouth ity of 50 mg 15:14: at [place] tablet 28 bedtime. Medical Branch fluticasone 2015-09 Yes 1{spray Use 1 Un michele (FLONASE) 1-01 } [place] ity of 50 15:14: each [place] mcg/actuati 28 nostril Medic al on nasal daily. Branch spray Indication s: 1 [place] each Nostril BID traZODONE 2015-09 Yes 50mg Take 50 mg Un michele (DESYREL) 1-01 by mouth ity of 50 mg 15:14: at [place] tablet 28 bedtime. Medical Branch omeprazole 2015-09 Yes 40mg Take 40 mg U nivers (PRILOSEC) 09-19 by mouth ity o f 40 mg 15:14: daily. [place] capsule 27 Medical Branch omeprazole 2015-09 Yes 40mg Take 40 mg U nivers (PRILOSEC) 09-19 by mouth ity o f 40 mg 15:14: daily. [place] capsule 27 Medical Branch omeprazole 2015-09 Yes 40mg Take 40 mg U nivers (PRILOSEC) 09-19 by mouth ity o f 40 mg 15:14: daily. [facility] 27 [facility] Branch lisinopril 2015-09 Yes 20mg Take 1 Unive rs (PRINIVIL,Z 1-01 tablet by ity of ESTRIL) 20 00:00: mouth 2 [place] mg tablet 00 (two) Medical times Branch daily. lisinopril 2015-09 Yes 20mg Take 1 Unive rs (PRINIVIL,Z 1-01 tablet by ity of ESTRIL) 20 00:00: mouth 2 [place] mg tablet 00 (two) Medical times Branch daily. lisinopril 2015-09 Yes 20mg Take 1 Unive rs (PRINIVIL,Z 1-01 tablet by ity of ESTRIL) 20 00:00: mouth 2 [place] mg tablet 00 (two) Medical times Branch daily. Immunizations Ordered Filled Immunization Date Status Comments [facility] e Immunization Name Name SARS-COV-2 COVID-19 2021-02-07 Completed Unive rsity of PFIZER VACCINE 00:00:00 [facility] SARS-COV-2 COVID-19 2021-01-10 Completed Unive rsity of PFIZER VACCINE 00:00:00 [facility] Vital Signs Vital Name Observation Time Observation Value Comments Source Systolic blood 2020-10-11 00:00:00 106 mm[Hg] Univer sity of pressure [facility] Diastolic blood 2020-10-11 00:00:00 74 mm[Hg] Unive rsity of pressure [facility] Heart rate 2020-10-11 00:00:00 63 /min [facility] Respiratory rate 2020-10-11 00:00:00 16 /min Univ ersity [facility] Oxygen saturation in 2020-10-11 00:00:00 98 /min University of Arterial blood by [place] [employer] shahla Pulse oximetry Branch Body temperature 2020-10-10 21:35:00 37.11 Luisa Univ ersity of [place] [facility] Body height 2020-10-10 21:35:00 157.5 cm Universi ty of [place] [facility] Body weight 2020-10-10 21:35:00 77.111 kg Universi ty of [place] [facility] BMI 2020-10-10 21:35:00 31.09 kg/m2 Universi ty of [place] [facility] Systolic blood 2020-10-11 00:00:00 106 mm[Hg] Univer sity of pressure [place] [facility] Diastolic blood 2020-10-11 00:00:00 74 mm[Hg] Unive rsity of pressure [place] [facility] Heart rate 2020-10-11 00:00:00 63 /min Universi ty of [place] [facility] Respiratory rate 2020-10-11 00:00:00 16 /min Univ ersity of [place] [facility] Oxygen saturation in 2020-10-11 00:00:00 98 /min University of Arterial blood by [place] [employer] shahla Pulse oximetry Branch Body temperature 2020-10-10 21:35:00 37.11 Luisa Univ ersity of [place] [facility] Body height 2020-10-10 21:35:00 157.5 cm Universi ty [facility] [place] [facility] Body weight 2020-10-10 21:35:00 77.111 kg Universi ty [facility] [place] [facility] BMI 2020-10-10 21:35:00 31.09 kg/m2 Universi ty [facility] [place] [facility] Systolic blood 2020-05-16 06:00:00 163 mm[Hg] Univer sity of pressure [place] [facility] Diastolic blood 2020-05-16 06:00:00 74 mm[Hg] Unive rsity of pressure [place] [facility] Heart rate 2020-05-16 06:00:00 64 /min Universi ty of [place] [facility] Respiratory rate 2020-05-16 06:00:00 20 /min Univ ersity of [place] [facility] Oxygen saturation in 2020-05-16 06:00:00 98 /min University of Arterial blood by [place] [employer] shahla Pulse oximetry Branch Body temperature 2020-05-16 02:44:00 37.22 Luisa Univ ersity of [place] [facility] Body height 2020-05-16 02:44:00 152.4 cm Universi ty [facility] [place] [facility] Body weight 2020-05-16 02:44:00 77.111 kg Universi [facility] BMI 2020-05-16 02:44:00 33.20 kg/m2 [facility] Systolic blood 2020-05-16 06:00:00 163 mm[Hg] Univer sity of pressure [facility] Diastolic blood 2020-05-16 06:00:00 74 mm[Hg] [facility] Heart rate 2020-05-16 06:00:00 64 /min [facility] Respiratory rate 2020-05-16 06:00:00 20 /min [facility] Oxygen saturation in 2020-05-16 06:00:00 98 /min [facility] Arterial blood by [facility] Pulse oximetry [place] Body temperature 2020-05-16 02:44:00 37.22 Luisa [facility] Body height 2020-05-16 02:44:[address] [facility] Body weight 2020-05-16 02:44:[address] [facility] BMI 2020-05-16 02:44:00 33.20 kg/m2 [facility] Procedures Procedure Date / Time Performed Performing Clinician [facility] e EXTERNAL PROVIDER - 2021-03-20 05:01:00 Doctor Unassigned, No Un [facility] ADC REFERRAL Name Medical Branch LIPASE 2020-10-10 23:18:00 [facility] [place] [facility] 2020-10-10 23:18:00 Anabela Hollingsworth [facility] ([id number]) [facility] (ALB,T.PRO,BILI T,BU/BC,ALT,AST,ALK PHOS) BASIC METABOLIC PANEL 2020-10-10 23:18:00 HollingsworthAnabela sanchez [facility] (NA, K, CL, CO2, Medical Branch GLUCOSE, BUN, CREATININE, CA) CBC WITH DIFF 2020-10-10 23:18:00 [facility] [place] [facility] 2020-10-10 23:04:00 [facility] PELVIS WO 2020-10-10 22:23:01 Anabela Hollingsworth [facility] CONTRAST Medical Branch NOTICE OF PRIVACY 2020-10-10 21:29:06 Doctor Unassigned, No [facility] [place] [facility] Name Medical Branch CONSENT/REFUSAL FOR 2020-10-10 21:28:36 [facility] Unassigned, No [facility] DI[facility] AND Name Medical Branch TREATMENT EKG-12 LEAD 2020-05-16 05:28:45 Margaret Pemberton [facility] LIPASE 2020-05-16 04:35:00 Margaret Pemberton [facility] TROPONIN I 2020-05-16 04:35:00 Margaret Pemberton [facility] COMP. METABOLIC PANEL 2020-05-16 04:35:00 Margaret Pemberton [facility] ([id number]) Medical Branch CBC WITH DIFF 2020-05-16 04:35:00 Margaret Pemberton [facility] COVID-19 (ID NOW RAPID 2020-05-16 04:35:00 Margaret Pemberton [facility] TESTING) Medical Branch XR CHEST 1 VW 2020-05-16 04:16:00 Margaret Pemberton [facility] URINALYSIS 2020-05-16 03:08:00 Shreyas Mota [facility] NOTICE OF PRIVACY 2020-05-16 02:35:16 Doctor Unassigned, No [facility] Name Medical Branch CONSENT/REFUSAL FOR 2020-05-16 02:34:46 Doctor Unassigned, No [facility] [place] DIAGNOSIS AND Name Medical Branch TREATMENT Encounters Start End Encounter Admission Attending Care Care Encounter Source Date/Time Date/Time Type Type Clinicians Facility Department ID 2021-07-18 Emergency [facility] [id number] Univers 18:58:18 [facility] 2021-07-17 Emergency [facility] [id number] Univers 14:37:11 [facility] 2021-05-22 2021-05-22 Outpatient Emeka GARSIA, [facility] [id number] Univers 15:40:00 15:40:00 SHREYAS [id number] [facility] 2021-05-22 2021-05-22 Outpatient Emeka GARSIA, [facility] [id number] Univers 15:40:00 15:40:00 SHREYAS cabralesy o [facility] 2021-05-07 2021-05-07 Outpatient Emeka ADY, [facility] [id number] Univers 10:00:00 10:00:00 SHREYAS [id number] ity o f [facility] 2021-05-07 2021-05-07 Outpatient Emeka ADY [facility] [id number] Univers 10:00:00 10:00:00 SHREYAS cabralesy o [facility] 2021-03-20 2021-03-20 Orders Doctor HILDA [id number] 00:00:00 00:00:00 Only Unassigned, HILARY [id number] [place] [facility] 4.2.7.2.686 [id number] 2021-03-20 2021-03-20 Orders Doctor HILDA [id number] Univers 00:00:00 00:00:00 Only Unassigned, HILARY [id number] ity [place] [facility] 4.2.7.2.686 Yifan as [id number] [address] 2021-02-07 2021-02-07 Outpatient [facility] [id number] Univers 09:15:00 09:15:00 [id number] [facility] 2021-02-07 2021-02-07 Outpatient R [facility] [id number] Univers 09:15:00 09:15:00 ity [facility] 2021-01-31 2021-01-31 Outpatient [facility] [id number] Univers 09:15:00 09:15:00 [id number] [facility] 2021-01-10 2021-01-10 Outpatient Emeka ROSE, [facility] [id number] Univers 09:30:00 09:30:00 CORNELIUS [id number] [facility] 2021-01-10 2021-01-10 Outpatient Emeka ROSE, [facility] [id number] Univers 09:30:00 09:30:00 CORNELIUS [facility] 2020-10-10 2020-10-10 Emergency Hollingsworth, [facility] [id number] 15:39:00 18:33:00 Anabela [place] [id number] [place] [address] [place] [address] [id number] 2020-10-10 2020-10-10 Emergency [place], [facility] [id number] [facility] 15:39:00 18:33:00 Anabela Queen [id number] i ty of [place] 4.2.7.2.686 [facility] [id number] [place] [address] Branch 2020-05-15 2020-05-16 [facility] [id number] 21:47:00 01:20:00 Margaret [place] [id number] [place] [address] [place] [address] [id number] 2020-05-15 2020-05-16 Emergency [facility] [id number] [facility] 21:47:00 01:20:00 Margaret Queen [id number] i ty of [place] 4.2.7.[address] [place] [address] [id number] [place] [address] Branch Results Test Description Test Time Test Comments Results Result Comments Source Hepatic Function Panel (ALB, T.PRO, BILI T, BU/BC, ALT , AST, 2020-10-10 23:54:00 ALK PHOS) Test Item Value Reference Range Interpretation Comme nts TOTAL BILI (test code = 2407706221) 0.5 mg/dL 0.1-1.1 BILI UNCON (test code = 0915338104) 0.4 mg/dL 0.1-1.1 BILI CONJ (test code = 3630050130) 0.0 mg/dL 0-0.3 T PROTEIN (test code = 0495307133) 8.3 g/dL 6.3-8.2 H ALBUMIN (test code = 8849796670) 4.5 g/dL 3.5-5 ALK PHOS (test code = 3878033024) 86 U/L 34-122 ALTv (test code = 1742-6) 17 U/L 5-35 AST(SGOT) (test code = 9276719178) 31 U/L 13-40 Lab Interpretation (test code = 44520-8) Abnormal [facility] [id number] 23:54:00 Test Item Value Reference Range Interpretation Comments LIPASE (test code = 8400029732) 60 U/L 0-220 Lab Interpretation (test code = Normal 75989-3) [facility] (NA, K, CL, CO2, GLUCOSE, BUN, CREATININE, CA)2020-10-10 23:54:00 Test Item Value Reference Range Interpretation Comments NA (test code = 140 mmol/L 135-145 5667188522) K (test code = 4.7 mmol/L 3.5-5 0820969388) CL (test code = 104 mmol/L 98-108 4086619171) CO2 TOTAL (test code = 28 mmol/L 23-31 5778797427) AGAP (test code = 2-16 1883701865) BUN (test code = 17 mg/dL 7-23 2120153164) GLUCOSE (test code = 92 mg/dL 70-110 2252230500) CREATININE (test code 0.81 mg/dL 0.5-1.04 = 8873023324) CALCIUM (test code = 9.3 mg/dL 8.6-10.6 1393652417) eGFR Calculation mL/min/1.73m2 (Non-) (test code = 2868754882) eGFR Calculation mL/min/1.73m2 () (test code = 1192562212) JOHN (test code = JOHN) Association of Glomerular Filtration Rate (GFR) and Staging of Kidney Disease* + -+ + ---+| GFR (mL/min/1.73 m2) ?| With Kidney Damage ?| ?Without Kidney Damage+ -------+ ------+ ---------+| ?>90 ?| ?Stage one ?| ? Normal ?+ --+ -+ ----+| ?60-89 ?| ?Stage two ?| ? Decreased GFR ? + -+ + ---+| ?30-59 ?| ?Stage three ?| ? Stage three ? + -+ + ---+| ?15-29 ?| ?Stage four ? | ? Stage four ?+ --+ -+ ----+| ?<15 (or dialysis) ? ?| ?Stage five ? | ? Stage five ?+ --+ -+ ----+ *Each stage assumes the associated GFR level has been in effect for at least three months. ?Stages 1 to 5, with or without kidney disease, indicate chronic kidney disease. Notes: Determination of stages one and two (with eGFR >59mL/min/1.73 m2) requires estimation of kidney damage for at least three months as defined by structural or functional abnormalities of the kidney, manifested by either:Pathological abnormalities or Markers of kidney damage (including abnormalities in the composition of the blood or urine or abnormalities in imaging tests). [facility] 23:41:00 Test Item Value Reference Range Interpretation Comments APPEARANCE (test code = Hazy Clear A 7920578772) COLOR (test code = Yellow Yellow 6984509335) PH (test code = 4.8-8.0 7598719512) SP GRAVITY (test code = 1.003-1.030 1909899185) GLU U QUAL (test code = Normal Normal 6313308695) BLOOD (test code = Negative Negative INTERFERE NCE FROM 3732705465) ASCORBIC ACID M AY CAUSE FALSE NEG ATIVE RESULT KETONES (test code = Negative Negative 5857245612) PROTEIN (test code = Negative Negative 2887-8) UROBILIN (test code = Normal Normal 4980280325) BILIRUBIN (test code = Negative Negative 7131052476) NITRITE (test code = Negative Negative 4159836107) LEUK NESS (test code = 250/uL Negative A 1336496574) RBC/HPF (test code = See_Comment [Autom ated message] 7311440424) The system [employer] generated this result transmitted ref erence range: 0 - 3 HP F. The reference range was not used to int erpret this result as normal/abnormal . WBC/HPF (test code = See_Comment [Autom ated message] 9827047526) The system [employer] generated this result transmitted ref erence range: 0 - 5 HP F. The reference range was not used to int erpret this result as normal/abnormal . BACTERIA (test code = Negative Negative 5698129306) MUCOUS (test code = Slight Negative LPF A 4278493401) SQ EPITH (test code = HPF 2852132073) Lab Interpretation (test Abnormal code = 76167-1) [facility] with [id number] 23:36:00 Test Item Value Reference Range Interpretation Comments WBC (test code = See_Comment [Automated 6690-2) message] The sy stem which generated this result transmitted reference range : 4.30 - 11.10 10*3/?L. The reference range was not used to interpret this result as normal/abnormal . RBC (test code = See_Comment [Automated 789-8) message] The sy stem which generated this result transmitted reference range : 3.93 - 5.25 10*6/?L. The reference range was not used to interpret this result as normal/abnormal . HGB (test code = 13.3 g/dL 11.6-15 718-7) HCT (test code = 42.8 % 35.7-45.2 4544-3) MCV (test code = 88.2 fL 80.6-95.5 787-2) MCH (test code = 27.4 pg 25.9-32.8 785-6) MCHC (test code = 31.1 g/dL 31.6-35.1 L 786-4) RDW-SD (test code = 46.5 fL 39-49.9 07737-0) RDW-CV (test code = 14.4 % 12-15.5 788-0) PLT (test code = See_Comment [Automated 777-3) message] The sy stem which generated this result transmitted reference range : 166 - 358 10*3/ ?L. The reference r susan was not used to interpret this result as normal/abnormal . MPV (test code = 9.5 fL 9.5-12.9 38926-6) NRBC/100 WBC (test See_Comment [Automat ed code = 1317622756) message] The system which generated this result transmitted reference range : 0.0 - 10.0 /100 WBCs. The refer ence range was not u sed to interpret th is result as normal/abnormal . NRBC x10^3 (test code <0.01 See_Comment [Auto mated = 5466543385) message] The s varinodetem which generated this result transmitted reference range : 10*3/?L. The reference range was not used to interpret this result as normal/abnormal . GRAN MAT (NEUT) % 53.6 % (test code = 770-8) IMM GRAN % (test code 0.20 % = 9213241206) LYMPH % (test code = 36.6 % 736-9) MONO % (test code = 8.6 % 5905-5) EOS % (test code = 0.7 % 713-8) BASO % (test code = 0.3 % 706-2) GRAN MAT x10^3(ANC) 3.16 10*3/uL 1.88-7.09 (test code = 2053607749) IMM GRAN x10^3 (test <0.03 0-0.06 code = 2900346125) LYMPH x10^3 (test code 2.16 10*3/uL 1.32-3.29 = 731-0) MONO x10^3 (test code 0.51 10*3/uL 0.33-0.92 = 742-7) EOS x10^3 (test code = 0.04 10*3/uL 0.03-0.39 711-2) BASO x10^3 (test code <0.03 0.01-0.07 = 704-7) Lab Interpretation Abnormal (test code = 85905-7) [facility] [id number] 23:05:431. ?Interval enlargement of cystic lesion within the medial segment 7 [id number]. Central fluid attenuation suggests a simple cyst. Considerconfirmation with multiphasic CT or MRI given interval growth. 2. ?Status post cholecystectomy. 3. ?Punctate bilateral nonobstructive nephrolithiasis. 4. ?Left adrenal benign adenoma. 5. ?Left ovarian 1.7 cm cyst. Attention on follow-up in 6 weeks. 6. ?Scarring in the ventral abdominal wall and small fat-containingumbilical hernia.CT abdomen and pelvis without contrast REASON FOR STUDY: Flank pain, stone disease suspected Nausea, vomiting COMPARISON: 06/23/2022TECHNIQUE: Unenhanced multidetector axial CT images from lung bases throughpelvic inlet. As requested, no IV contrast was used. Coronal and sagittalMPR images also generated. INTRAVENOUS CONTRAST ADMINISTRATION: None. DOSE REPORT (Total DLP mGy*cm): 383. FINDINGS: Lower chest: Clear lung bases. Partially visualized AICD lead tipsterminating in the right ventricle and right atrium. ABDOMEN AND PELVISLiver: Liver does not appear overtly cirrhotic. Medial segment 7 2.9 cmhypoattenuating lesion with central fluid attenuation, previously 2.4 cm onCT from 2018. No other focal hepatic lesions identified. N ormal hepaticsurface contour. Biliary Tract/GB: Status post cholecystectomy. Spleen: No splenomegaly. Subcentimeter splenule along the superior marginof the spleen. Pancreas: No pancreatic ductal dilatation. Adrenals: 1.0 cm left adrenal nodule with attenuation consistent withbenign lipid rich adenoma(4-6 Hounsfield units). Kidneys: There are 4-5 bilateral punctate nonobstructive calculi. Nohydronephrosis or contour deforming renal mass. Overall appearance issimilar to prior exam. No hydroureter. Bowel: Tiny sliding-type hiatal hernia with mild distal esophagealthickening. Mild pancolonic diverticulosis without diverticulitis. Normalappendix. Small bowel appears unremarkable. No abnormal bowel dilatation orwall thickening. Peritoneum: No pneumoperitoneum or free fluid. Vasculature: Mild atherosclerotic calcifications in the infrarenalabdominal aorta. Lymph Nodes: No lymphadenopathy. ? Pelvic Organs: Left ovarian 1.7 cm cystic lesion with central fluidattenuation. Right ovary is not well distinguished from the adjacentviscera. Uterus is normal. Urinary bladder is decompressed. No urinarybladder calculi. Abdominal/Pelvic Wall: Redemonstration of scarring within the theinfraumbilical ventral abdominal wall, similar to minimally more prominentwhen comparing to prior examfrom 2018. Tiny fat-containing umbilicalhernia is visualized on 6:65 (with fascial defect measuring 1.5 cm intransverse dimension), similar prior. Subcentimeter calcified granuloma within the subcutaneous tissuessuperficial to the right greater trochanter. BONES: No acute or aggressive osseous abnormality. Slightly increasedsclerosis at the inferior left SI joint without appreciable joint erosion(4:65). No aggressive feature identified. [facility], Radiant Results Inft User - 10/10/2020 5:06 PM CSTCT abdomen and pelvis without contrastREASON FOR STUDY: Flank pain, stone disease suspected Nausea, vomiting COMPARISON: 06/23/2022TECHNIQUE: Unenhanced multidetector axial CT images from lung bases throughpelvic inlet. As requested, no IV contrast was used. Coronal and sagittalMPR images also generated.INTRAVENOUS CONTRAST ADMINISTRATION: None.DOSE REPORT (Total DLP mGy*cm): 383.FINDINGS: Lower chest: Clear lung bases. Partially visualized AICD lead tipsterminating in the right ventricle and right atrium.ABDOMEN AND PELVISLiver: Liver does not appear overtly cirrhotic. Medial segment 7 2.9 cmhypoattenuating lesion with central fluid attenuation, previously 2.4 cm onCT from 2018. No other focal hepatic lesions identified. Normal hepaticsurface contour.Biliary Tract/GB: Status post cholecystectomy.Spleen: No splenomegaly. Subcentimeter splenule along the superior marginof the spleen.Pancreas: No pancreatic ductal dilatation.Adrenals: 1.0 cm left adrenal nodule with attenuation consistent withbenign lipid rich adenoma (4-6 Hounsfield units).Kidneys: There are 4-5 bilateral punctate nonobstructive calculi. Nohydronephrosis or contour deforming renal mass. Overall appearance issimilar to prior exam. No hydroureter.Bowel: Tiny sliding-type hiatal hernia with mild distal esophagealthickening. Mild pancolonic diverticulosis without diverticulitis. Normalappendix. Small bowel appears unremarkable. No abnormal bowel dilatation orwall thickening.Peritoneum: No pneumoperitoneum or free fluid.Vasculature: Mild atherosclerotic calcifications in the infrarenalabdominal aorta.Lymph Nodes: No lymphadenopathy. Pelvic Organs: Left ovarian 1.7 cm cystic lesion with central fluidattenuation. Right ovary is not well distinguished from the adjacentviscera. Uterus is normal. Urinary bladder is decompressed. No urinarybladder calculi.Abdominal/Pelvic Wall: Redemonstration of scarring within the theinfraumbilical ventral abdominal wall, similar to minimally more prominentwhen comparing to prior exam from 2018. Tiny fat-containing umbilicalhernia is visualized on 6:65 (with fascial defect measuring 1.5 cm intransverse dimension), similar prior. Subcentimeter calcified granuloma within the subcutaneous tissuessuperficial to the right greater trochanter.BONES: No acute or aggressive osseous abnormality. Slightly increasedsclerosis at the inferior left SI joint without appreciable joint erosion(4:65). No aggressive feature identified.IMPRESSION1. Interval enlargement of cystic lesion within the medial segment 7 [id number]. Central fluid attenuation suggests a simple cyst. Considerconfirmation with multiphasic CT or MRI given interval growth. 2. Status post cholecystectomy.3. Punctate bilateral nonobstructive nephrolithiasis.4. Left adrenal benign adenoma.5. Left ovarian 1.7 cm cyst. A ttention on follow-up in 6 weeks.6. Scarring in the ventral abdominal wall and small fat-containingumbilical hernia.[facility]TR[facility] [id number] 05:48:00 Test Item Value Reference Range Interpretation Comments TROPONIN I (test 0.029 ng/mL See_Comment [Automated code = [id number]) message] The system which generated this result transmitted reference range : <=0.034. The reference range was not used to interpret this result as normal/abnormal . JOHN (test code = Equal or Less than JOHN) 0.034 ng/ml---Normal ?Note: Cardiac troponin begins to rise 3-4 hours after the onset of ischemia. Repeat in 4-6 hours if the sample was drawn within 3-4 hours of the onset of the symptom and found normal. Between 0.035 and 0.120 ng/mL--- Borderline. Questionable myocardial injury or necrosis ? ?Note: Serial measurement may be necessary to confirm or exclude the diagnosis of myocardial injury or necrosis; Clinical correlation (symptoms, EKGs, imaging studies, and others) required; Repeat in 4-6 hours if clinically indicated. ? Equal or Higher than 0.121 ng/mL---Abnormal. Myocardial Injury or Necrosis Likely ? Biotin has been reported to cause a negative bias, interpret results relative to patient's use of biotin. ? Lab Interpretation Normal (test code = 53089-1) [facility]XR [facility] 1 [id number] 05:11:31 No acute cardiopulmonary abnormality. Preliminary Report Dictated by Resident: Phi Salazar MD., have reviewed this study and agree withthe above report.EXAM: XR CHEST 1 VW CLINICAL INDICATION: cough, wheezing COMPARISON: None FINDINGS: Left chest wall cardiac pacer tips terminate in the right ventricle andright atrium. The lungs are well-expanded and clear without focal consolidation, pleuraleffusion, or pneumothorax. The cardiac silhouette is normal in size. The aorticknob is calcified. No acute osseous abnormality. [facility], [facility]iant Results Inft User - 05/16/2020 12:12AM CDTEXAM: XR CHEST 1 VWCLINICAL INDICATION: cough, wheezing COMPARISON: NoneFINDINGS:Left chest wall cardiac pacer tips terminate in the right ventricle andright atrium.The lungs are well-expanded and clear without focal consolidation, pleuraleffusion, or pneumothorax.The cardiac silhouette is normal in size. The aortic knob is calcified.No acute osseous abnormality. IMPRESSIONNo acute cardiopulmonary abnormality.Preliminary Report Dictated by Resident: Prudencio Delaney MD., have reviewed this study and agree withthe above report. [facility]. METABOLIC PANEL ([id number])2020-05-16 05:05:00 Test Item Value Reference Range Interpretation Comments NA (test code = 140 mmol/L 135-145 1180746414) K (test code = 4.6 mmol/L 3.5-5 4842764730) CL (test code = 108 mmol/L 98-108 2238549398) CO2 TOTAL (test code = 29 mmol/L 23-31 0823045889) AGAP (test code = 2-16 6031866588) BUN (test code = 18 mg/dL 7-23 1931230059) GLUCOSE (test code = 108 mg/dL 70-110 2280709328) CREATININE (test code = 0.92 mg/dL 0.5-1.04 0279426758) TOTAL BILI (test code = 0.4 mg/dL 0.1-1.5 6831680567) CALCIUM (test code = 9.3 mg/dL 8.6-10.6 0074833303) T PROTEIN (test code = 8.1 g/dL 6.3-8.2 0803837201) ALBUMIN (test code = 4.2 g/dL 3.5-5 0782103827) ALK PHOS (test code = 71 U/L 34-122 1307298896) ALTv (test code = 20 U/L 5-35 1742-6) AST(SGOT) (test code = 50 U/L 13-40 H 8806697440) eGFR Calculation mL/min/1.73m2 (Non-) (test code = 0540882955) eGFR Calculation mL/min/1.73m2 () (test code = 9484770024) JOHN (test code = JOHN) Association of Glomerular Filtration Rate (GFR) and Staging of Kidney Disease* + --+ --+ ------+| GFR (mL/min/1.73 m2) ?| With Kidney Damage ?| ?Without Kidney Damage+ --------+ --------+ +| ?>90 ?| ?Stage one ?| ? Normal ?+ ---+ ---+ -------+| ?60-89 ?| ?Stage two ?| ? Decreased GFR ? + --+ --+ ------+| ?30-59 ?| ?Stage three ?| ? Stage three ? + --+ --+ ------+| ?15-29 ?| ?Stage four ? | ? Stage four ?+ ---+ ---+ -------+| ?<15 (or dialysis) ? ?| ?Stage five ? | ? Stage five ?+ ---+ ---+ -------+ *Each stage assumes the associated GFR level has been in effect for at least three months. ?Stages 1 to 5, with or without kidney disease, indicate chronic kidney disease. Notes: Determination of stages one and two (with eGFR >59mL/min/1.73 m2) requires estimation of kidney damage for at least three months as defined by structural or functional abnormalities of the kidney, manifested by either:Pathological abnormalities or Markers of kidney damage (including abnormalities in the composition of the blood or urine or abnormalities in imaging tests). Lab Interpretation Abnormal (test code = 57721-5) [facility]2020-[facility] 05:04:00 Test Item Value Reference Range Interpretation Comments LIPASE (test code = 3705072370) 48 U/L 0-220 Lab Interpretation (test code = Normal 64899-5) [facility] HospitalCOVID[facility] (ID NOW RAPID TESTING)2020-05-16 05:01:00 Test Item Value Reference Range Interpretation Comments SARS-CoV-2 Rapid ID NOW Not Detected Not Detected (test code = 57816-3) JOHN (test code = JOHN) ID NOW COVID-19 Assay is an isothermal nucleic acid amplification test intended for the qualitative detection of nucleic acid from SARS-CoV-2 viral RNA in nasopharyngeal (SIDER MECHANIC) specimens. It is used under Emergency Use Authorization (EUA) by FDA. The limit of detection (LOD) of the assay is 125 Genome Equivalents/mL. A positive result is indicative of the presence of SARS-CoV-2 RNA. ?Clinical correlation with patient history and other diagnostic [...] for repeat patient testing if clinically indicated. Lab Interpretation Normal (test code = 40864-9) [facility] WITH [id number] 04:46:00 Test Item Value Reference Range Interpretation Comments WBC (test code = See_Comment [Automated 6306-2) message] The sy stem which generated this result transmitted reference range : 4.30 - 11.10 10*3/?L. The reference range was not used to interpret this result as normal/abnormal . RBC (test code = See_Comment [Automated 382-8) message] The sy stem which generated this result transmitted reference range : 3.93 - 5.25 10*6/?L. The reference range was not used to interpret this result as normal/abnormal . HGB (test code = 13.0 g/dL 11.6-15 718-7) HCT (test code = 41.7 % 35.7-45.2 4544-3) MCV (test code = 88.2 fL 80.6-95.5 787-2) MCH (test code = 27.5 pg 25.9-32.8 785-6) MCHC (test code = 31.2 g/dL 31.6-35.1 L 786-4) RDW-SD (test code = 49.1 fL 39-49.9 47855-3) RDW-CV (test code = 15.1 % 12-15.5 788-0) PLT (test code = See_Comment [Automated 777-3) message] The sy stem which generated this result transmitted reference range : 166 - 358 10*3/ ?L. The reference r susan was not used to interpret this result as normal/abnormal . MPV (test code = 9.8 fL 9.5-12.9 52752-5) NRBC/100 WBC (test See_Comment [Automat ed code = 5932523631) message] The system which generated this result transmitted reference range : 0.0 - 10.0 /100 WBCs. The refer ence range was not u sed to interpret th is result as normal/abnormal . NRBC x10^3 (test code <0.01 See_Comment [Auto mated = 3214749456) message] The s ystem which generated this result transmitted reference range : 10*3/?L. The reference range was not used to interpret this result as normal/abnormal . GRAN MAT (NEUT) % 50.8 % (test code = 770-8) IMM GRAN % (test code 0.40 % = 9351244837) LYMPH % (test code = 39.1 % 736-9) MONO % (test code = 7.7 % 5905-5) EOS % (test code = 1.6 % 713-8) BASO % (test code = 0.4 % 706-2) GRAN MAT x10^3(ANC) 2.90 10*3/uL 1.88-7.09 (test code = 9886002091) IMM GRAN x10^3 (test <0.03 0-0.06 code = 1876157689) LYMPH x10^3 (test code 2.23 10*3/uL 1.32-3.29 = 731-0) MONO x10^3 (test code 0.44 10*3/uL 0.33-0.92 = 742-7) EOS x10^3 (test code = 0.09 10*3/uL 0.03-0.39 711-2) BASO x10^3 (test code <0.03 0.01-0.07 = 704-7) Lab Interpretation Abnormal (test code = 66249-3) [facility]2020-[facility] 03:37:00 Test Item Value Reference Range Interpretation Comments APPEARANCE (test code = Clear Clear 2159012150) COLOR (test code = Yellow Yellow 1627923365) PH (test code = 4.8-8.0 4270828628) SP GRAVITY (test code = 1.003-1.030 0785390002) GLU U QUAL (test code = Normal Normal 4838470233) BLOOD (test code = Negative Negative INTERFERE NCE FROM 0514011550) ASCORBIC ACID M AY CAUSE FALSE NEG ATIVE RESULT KETONES (test code = Negative Negative 5527904577) PROTEIN (test code = Negative Negative 2887-8) UROBILIN (test code = Normal Normal 8924691699) BILIRUBIN (test code = Negative Negative 1392678147) NITRITE (test code = Negative Negative 2860366423) LEUK NESS (test code = Negative Negative 9429699898) RBC/HPF (test code = See_Comment [Autom ated message] 9821302598) The system [employer] generated this result transmitted ref erence range: 0 - 3 HP F. The reference range was not used to int erpret this result as normal/abnormal . WBC/HPF (test code = See_Comment [Autom ated message] 6947087807) The system [employer] generated this result transmitted ref erence range: 0 - 5 HP F. The reference range was not used to int erpret this result as normal/abnormal . BACTERIA (test code = Few Negative A 8346195809) MUCOUS (test code = Slight Negative LPF A 3222456143) SQ EPITH (test code = HPF 1432067685) Lab Interpretation (test Abnormal code = 69904-6) [facility]"
[2021-08-11] MEDS ORDERED: CEFTRIAXONE 1000 MG/VIAL ONE (00:56)
[2021-08-11] MEDS ORDERED: NA CHLORIDE 0.9% 1,000 ML ONE (00:57)
[2021-08-11] MEDS ORDERED: ONDANSETRON 4 MG/2 ML VIAL ONE (00:57)
[2021-08-11 01:20] LABS: Absolute Lymphocytes (CBC) 1.6 K/uL (0.7-4.9); Basophils % 0.4 % (0-1.3); Hematocrit 43.5 % (36.0-45.0); Lymphocytes % 22.7 % (15.3-44.8); MPV 8.2 fL (7.6-11.3); RBC Red Blood Cell Count 5.15 M/uL (3.86-4.86)
[2021-08-11 01:21] LABS: Protime INR 0.92
[2021-08-11 01:34] LABS: ALT/SGPT 24 U/L (12-78); AST/SGOT 21 U/L (15-37); Albumin 3.5 g/dL (3.4-5.0); Alkaline Phosphatase 92 U/L (45-117); BUN Blood Urea Nitrogen 16 mg/dL (7-18); Bicarbonate 28 mmol/L (21-32); Bilirubin Direct < 0.1 mg/dL (0-0.2); Bilirubin Total 0.2 mg/dL (0.2-1.0); Glucose Level 117 mg/dL (74-106); Lipase 91 U/L (73-393); Magnesium 2.5 mg/dL (1.8-2.4); NT PRO-BNP 56 pg/mL (<125); Potassium 4.1 mmol/L (3.5-5.1); Protein, Total 8.5 g/dL (6.4-8.2); Sodium Level 141 mmol/L (136-145); Troponin (Emerg Dept Use Only) < 0.02 ng/mL (0.0-0.045)
[2021-08-11 02:13] LABS: SARS-COV-2 RT PCR NEGATIVE (NEGATIVE)
--- NOTE | 2021-08-11 02:57 | EDPHYS ---
Physician Documentation [facility] Name: Shelia Valentine Age: 70 yrs Sex: Female : 1950 Arrival Date: 08/10/2021 Time: 23:13 Bed 7 Private MD: ED Physician Miguel Martinez HPI: 08/11 00:43 This 70 yrs old Female presents to ER via Ambulatory with complaints of arin Vomiting, Cough. 00:43 The patient presents to the emergency department with nausea, vomiting, that is arin intermittent. Onset: The symptoms/episode began/occurred yesterday. Possible causes: unknown. The symptoms are aggravated by nothing. The symptoms are alleviated by nothing. Associated signs and symptoms: The patient has no apparent associated signs or symptoms. Severity of symptoms: At their worst the symptoms were mild in the emergency department the symptoms are unchanged. The patient has not experienced similar symptoms in the past. Historical: - Allergies: 08/10 23:26 Cipro; ld1 23:26 Codeine; ld1 23:26 Demerol; ld1 23:26 HYDROCODONE; ld1 23:26 Morphine; ld1 23:26 PENICILLINS; ld1 23:26 Sulfa (Sulfonamide Antibiotics); ld1 - Home Meds: 23:26 lisinopril 20 mg Oral tab 1 tab twice daily [Active]; meloxicam 7.5 mg Oral tab 1 tab ld1 twice a day [Active]; pantoprazole 40 mg Oral TbEC 1 tab once daily [Active]; - PMHx: 23:26 BRADYCARDIA; CAD; chest pain; GERD; High Cholesterol; Hypertension; Kidney stones; ld1 Osteoporosis; Pancreatitis; Sleep Apnea; - Immunization history:: Adult Immunizations up to date, Client reports receiving the 2nd dose of the Covid vaccine. - Social history:: Smoking status: Patient denies any tobacco usage or history of. Patient/guardian denies using alcohol. - Family history:: not pertinent. ROS: 08/11 00:43 Constitutional: Negative for fever, chills, and weight loss, Eyes: Negative for injury, arin pain, redness, and discharge, ENT: Negative for injury, pain, and discharge, Neck: Negative for injury, pain, and swelling, Cardiovascular: Negative for chest pain, palpitations, and edema, Respiratory: Negative for shortness of breath, cough, wheezing, and pleuritic chest pain, Back: Negative for injury and pain, : Negative for injury, bleeding, discharge, and swelling, MS/Extremity: Negative for injury and deformity, Skin: Negative for injury, rash, and discoloration, Neuro: Negative for headache, weakness, numbness, tingling, and seizure, Psych: Negative for depression, anxiety, suicide ideation, homicidal ideation, and hallucinations, Allergy/Immunology: Negative for hives, rash, and allergies, Endocrine: Negative for neck swelling, polydipsia, polyuria, polyphagia, and marked weight changes, Hematologic/Lymphatic: Negative for swollen nodes, abnormal bleeding, and unusual bruising. Abdomen/GI: Positive for abdominal pain, nausea and vomiting, diarrhea. Exam: 00:43 Constitutional: This is a well developed, well nourished patient who is awake, alert, arin and in no acute distress. Head/Face: Normocephalic, atraumatic. Eyes: Pupils equal round and reactive to light, extra-ocular motions intact. Lids and lashes normal. Conjunctiva and sclera are non-icteric and not injected. Cornea within normal limits. Periorbital areas with no swelling, redness, or edema. ENT: Nares patent. No nasal discharge, no septal abnormalities noted. Tympanic membranes are normal and external auditory canals are clear. Oropharynx with no redness, swelling, or masses, exudates, or evidence of obstruction, uvula midline. Mucous membranes moist. Neck: Trachea midline, no thyromegaly or masses palpated, and no cervical lymphadenopathy. Supple, full range of motion without nuchal rigidity, or vertebral point tenderness. No Meningismus. Chest/axilla: Normal chest wall appearance and motion. Nontender with no deformity. No lesions are appreciated. Cardiovascular: Regular rate and rhythm with a normal S1 and S2. No gallops, murmurs, or rubs. Normal PMI, no JVD. No pulse deficits. Respiratory: Lungs have equal breath sounds bilaterally, clear to auscultation and percussion. No rales, rhonchi or wheezes noted. No increased work of breathing, no retractions or nasal flaring. Abdomen/GI: Soft, non-tender, with normal bowel sounds. No distension or tympany. No guarding or rebound. No evidence of tenderness throughout. Back: No spinal tenderness. No costovertebral tenderness. Full range of motion. Female : Normal external genitalia. Skin: Warm, dry with normal turgor. Normal color with no rashes, no lesions, and no evidence of cellulitis. MS/ Extremity: Pulses equal, no cyanosis. Neurovascular intact. Full, normal range of motion. Neuro: Awake and alert, GCS 15, oriented to person, place, time, and situation. Cranial nerves II-XII grossly intact. Motor strength 5/5 in all extremities. Sensory grossly intact. Cerebellar exam normal. Normal gait. Psych: Awake, alert, with orientation to person, place and time. Behavior, mood, and affect are within normal limits. 00:43 Musculoskeletal/extremity: DVT Exam: No signs of deep vein thrombosis. no pain, no swelling, no tenderness, negative Homans' sign noted on exam, no appreciated bluish discoloration, no erythema, no increased warmth. 02:00 ECG was reviewed by the Attending Physician. [facility] Vital Signs: 08/10 23:24 BP 166 / 106; Pulse 79; Resp 19; Temp 98.5(O); Pulse Ox 98% on R/A; Weight 83.91 kg; ld1 Height 5 ft. 5 in. (165.10 cm); Pain 6/10; 08/11 02:30 BP 151 / 66; Pulse 75; Resp 18; Pulse Ox 98% on R/A; df1 03:55 BP 155 / 76; Pulse 76; Resp 18; Pulse Ox 99% on R/A; df1 04:03 BP 154 / 74; Pulse 79; Resp 18; Temp 98.2(O); Pulse Ox 97% ; df1 08/10 23:24 Body Mass Index 30.79 (83.91 kg, 165.10 cm) ld1 MDM: 00:28 Patient medically screened. arin 00:45 Differential diagnosis: Nonspecific abd pain, gastritis, viral gastroenteritis, arin gastroenteritis. Data reviewed: vital signs, nurses notes, lab test result(s), EKG, radiologic studies, CT scan, plain films. Data interpreted: night monitor: rate is 79 beats/min, rhythm is regular, Pulse oximetry: on room air is 98 %. Test interpretation: by ED physician or midlevel provider: ECG, plain radiologic studies. Counseling: I had a detailed discussion with the patient and/or guardian regarding: the historical points, exam findings, and any diagnostic results supporting the discharge/admit diagnosis, lab results, radiology results, the need for outpatient follow up, for definitive care, a family practitioner. 08/11 00:40 Order name: Basic Metabolic Panel [facility] 08/11 00:40 Order name: CBC with Diff; Complete Time: 01:37 [facility] 08/11 00:40 Order name: LFT's; Complete Time: :37 [facility] 08/11 00:40 Order name: Magnesium; Complete Time: :37 [facility] 08/11 00:40 Order name: NT PRO-BNP; Complete Time: :37 [facility] 08/11 00:40 Order name: PT-INR; Complete Time: :37 [facility] 08/11 00:40 Order name: Troponin (emerg Dept Use Only); Complete Time: : [facility] 08/11 00:40 Order name: Lipase; Complete Time: :37 [facility] 08/11 00:40 Order name: Urine Culture [facility] 08/11 00:40 Order name: Lactate; Complete Time: :37 [facility] 08/11 00:41 Order name: Basic Metabolic Panel; Complete Time: :37 EDMS 08/11 00:40 Order name: XRAY Chest (1 view) [facility] 08/11 00:40 Order name: EKG; Complete Time: 00:41 [facility] 08/11 00:40 Order name: Cardiac monitoring; Complete Time: 01:04 [facility] 08/11 00:40 Order name: EKG - Nurse/Tech; Complete Time: 02:09 [facility] 08/11 00:40 Order name: IV Saline Lock; Complete Time: 01:05 [facility] 08/11 00:40 Order name: Labs collected and sent; Complete Time: 01:05 [facility] 08/11 00:40 Order name: O2 Per Protocol; Complete Time: 01:05 [facility] 08/11 00:40 Order name: O2 Sat Monitoring; Complete Time: 01:05 [facility] 08/11 00:40 Order name: Urine Dipstick-Ancillary (obtain specimen); Complete Time: 01:04 [facility] 08/11 00:40 Order name: CT Chest, Abdomen, Pelvis - W/Contrast [facility] 08/11 01:11 Order name: COVID-19/FLU A+B/RSV; Complete Time: 02:55 EDMS 08/11 03:55 Order name: CREATININE WHOLE BLOOD EDMS EC:00 Rate is 71 beats/min. Rhythm is regular. QRS [place] is Normal. AR interval is normal. QRS arin interval is normal. QT interval is normal. No Q waves. No ST changes noted. Clinical impression: NSR w/ Non-specific ST/T Changes. Interpreted by me. Reviewed by me. Administered Medications: 01:04 Drug: NS 0.9% 1000 ml Route: IV; Rate: 1 bolus; Site: right forearm; df1 04:11 Follow up: IV Status: Completed infusion; IV Intake: 700ml bb 01:05 Drug: Rocephin (cefTRIAXone) 1 grams Route: IV; Rate: per protocol; Site: right forearm;df1 01:10 Follow up: IV Status: Completed infusion; IV Intake: 10ml bb 01:06 Drug: Zofran (Ondansetron) 4 mg Route: IVP; Site: right antecubital; df1 03:53 Follow up: Response: Nausea is decreased df1 Disposition Summary: 08/11/21 02:56 Discharge Ordered Location: Home [facility] Problem: new arin Symptoms: have improved arin Condition: Stable arin Diagnosis - Vomiting arin - Cough arin - Essential (primary) hypertension arin Followup: arin - With: Private Physician - When: 2 - 3 days - Reason: Recheck today's complaints, Continuance of care, Re-evaluation by your physician Followup: arin - With: Enedina Pantoja MD - When: 2 - 3 days - Reason: Recheck today's complaints, Re-evaluation by your physician Discharge Instructions: - Discharge Summary Sheet arin - Nausea and Vomiting, Adult arin - Cool Mist Vaporizer arin - Nausea and Vomiting, Adult, [id number] arin - Cough, Adult, Prtc-[id number] arin - Cough, Adult arin - Vomiting, Adult arin Forms: - Medication Reconciliation Form [facility] - Thank You Letter [facility] - Antibiotic Education [facility] - Prescription Opioid Use [facility] Prescriptions: - Pepcid 20 mg Oral Tablet - take 1 tablet by ORAL route every 12 hours for 10 days; 20 tablet; Refills: 0, [facility] Product Selection Permitted - Zofran 4 mg Oral Tablet - take 1 tablet by ORAL route every 12 hours As needed; 20 tablet; Refills: 0, [facility] Product Selection Permitted Signatures: Dispatcher [employer] [facility] Miguel Martinez MD MD cha Dibbern, Lauren, RN RN ld1 Samra Sousa df1 Charissa Mcallister RN bb Corrections: (The following items were deleted from the chart) 01:11 00:41 SARS-COV-2 RT PCR+MOL.LAB.BRZ ordered. EDMS EDMS : 00:42 Influenza Screen (A \T\ B)+BA.LAB.BRZ ordered. EDMS EDMS 01: 00:42 Respiratory Syncytial Virus Ag+BA.LAB.BRZ ordered. EDMS EDMS
--- NOTE | 2021-08-11 02:57 | ER ---
Nurse's Notes [facility] Name: Shelia Valentine Age: 70 yrs Sex: Female : 1950 Arrival Date: 08/10/2021 Time: 23:13 Bed 7 Private MD: Diagnosis: Vomiting;Cough;Essential (primary) hypertension Presentation: 08/10 23:24 Chief complaint: Patient states: I woke up this morning not feeling good. I have had ld1 diarrhea, runny nose, vomiting \T\ cough. Pt reports ALEX flank pain and incontinence. Coronavirus screen: Client presents with at least one sign or symptom that may indicate coronavirus-19. Standard/surgical mask placed on the client. Ebola Screen: No symptoms or risks identified at this time. Initial Sepsis Screen: Does the patient meet any 2 criteria? No. Patient's initial sepsis screen is negative. Does the patient have a suspected source of infection? No. Patient's initial sepsis screen is negative. Risk Assessment: Do you want to hurt yourself or someone else? Patient reports no desire to harm self or others. Onset of symptoms was August 10, 2021 at 23:26. 23:24 Method Of Arrival: Ambulatory ld1 23:24 Acuity: ADDI 3 ld1 Triage Assessment: 23:26 General: Appears in no apparent distress. comfortable, Behavior is calm, cooperative, ld1 appropriate for age. Pain: Complains of pain in low back area Pain does not radiate. Pain currently is 8 out of 10 on a pain scale. Quality of pain is described as throbbing, Pain began 2-3 days ago. Is continuous. EENT: No signs and/or symptoms were reported regarding the EENT system. Neuro: Level of Consciousness is awake, alert, obeys commands, Oriented to person, place, time, situation. Cardiovascular: Capillary refill < 3 seconds Patient's skin is warm and dry. Respiratory: Airway is patent Respiratory effort is even, unlabored, Respiratory pattern is regular, symmetrical. GI: Abdomen is round non-distended, Reports diarrhea, nausea, vomiting. : No signs and/or symptoms were reported regarding the genitourinary system. Derm: No signs and/or symptoms reported regarding the dermatologic system. Musculoskeletal: Reports pain in back. Historical: - Allergies: 23:26 Cipro; ld1 23:26 Codeine; ld1 23:26 Demerol; ld1 23:26 HYDROCODONE; ld1 23:26 Morphine; ld1 23:26 PENICILLINS; ld1 23:26 Sulfa (Sulfonamide Antibiotics); ld1 - Home Meds: 23:26 lisinopril 20 mg Oral tab 1 tab twice daily [Active]; meloxicam 7.5 mg Oral tab 1 tab ld1 twice a day [Active]; pantoprazole 40 mg Oral TbEC 1 tab once daily [Active]; - PMHx: 23:26 BRADYCARDIA; CAD; chest pain; GERD; High Cholesterol; Hypertension; Kidney stones; ld1 Osteoporosis; Pancreatitis; Sleep Apnea; - Immunization history:: Adult Immunizations up to date, Client reports receiving the 2nd dose of the Covid vaccine. - Social history:: Smoking status: Patient denies any tobacco usage or history of. Patient/guardian denies using alcohol. - Family history:: not pertinent. Screenin/23 00:29 Abuse screen: Denies threats or abuse. Nutritional screening: No deficits noted. df1 Tuberculosis screening: No symptoms or risk factors identified. Fall Risk None identified. Assessment: 01:30 General: Appears in no apparent distress. Behavior is calm, cooperative. df1 01:30 Neuro: No deficits noted. Cardiovascular: No deficits noted. Respiratory: Airway is df1 patent Respiratory effort is even, unlabored, Respiratory pattern is regular, symmetrical. GI: Abdomen is round Bowel sounds present X 4 quads. Abd is soft and non tender X 4 quads. : No deficits noted. EENT: No deficits noted. Musculoskeletal: No deficits noted. 04:09 Reassessment: Patient is alert, oriented x 3, equal unlabored respirations, skin bb warm/dry/pink. pt verbalized understanding of and agrees to plan of care discharge instructions given pt ambulated with steady gait to exit. Vital Signs: 08/10 23:24 BP 166 / 106; Pulse 79; Resp 19; Temp 98.5(O); Pulse Ox 98% on R/A; Weight 83.91 kg; ld1 Height 5 ft. 5 in. (165.10 cm); Pain 6/10; 08/11 02:30 BP 151 / 66; Pulse 75; Resp 18; Pulse Ox 98% on R/A; df1 03:55 BP 155 / 76; Pulse 76; Resp 18; Pulse Ox 99% on R/A; df1 04:03 BP 154 / 74; Pulse 79; Resp 18; Temp 98.2(O); Pulse Ox 97% ; df1 08/10 23:24 Body Mass Index 30.79 (83.91 kg, 165.10 cm) ld1 ED Course: 08/10 23:13 Patient arrived in ED. bp1 23:26 Triage completed. ld1 23:26 Arm band placed on right wrist. ld1 23:59 Samra Sousa is Primary Nurse. df1 08/11 00:28 Miguel Martinez MD is Attending Physician. arin 00:29 Patient has correct armband on for positive identification. Placed in gown. Bed in low df1 position. Call light in reach. Side rails up X 1. Pulse ox on. NIBP on. 00:29 Inserted saline lock: 18 gauge in right forearm, using aseptic technique. df1 00:29 No provider procedures requiring assistance completed. df1 00:49 XRAY Chest (1 view) In Process Unspecified. EDMS 01:04 Urine Culture Sent. df1 01:04 Lipase Sent. df1 01:04 Basic Metabolic Panel Sent. df1 01:05 CBC with Diff Sent. df1 01:05 LFT's Sent. df1 01:05 Magnesium Sent. df1 01:05 NT PRO-BNP Sent. df1 01:05 PT-INR Sent. df1 01:05 Troponin (emerg Dept Use Only) Sent. df1 01:05 Basic Metabolic Panel Sent. df1 01:05 Lactate Sent. df1 01:34 CT Chest, Abdomen, Pelvis - W/Contrast In Process Unspecified. EDMS 02:56 Enedina Pantoja MD is Referral Physician. arin 04:10 IV discontinued, intact, bleeding controlled, No redness/swelling at site. Pressure bb dressing applied. Administered Medications: 01:04 Drug: NS 0.9% 1000 ml Route: IV; Rate: 1 bolus; Site: right forearm; df1 04:11 Follow up: IV Status: Completed infusion; IV Intake: 700ml bb 01:05 Drug: Rocephin (cefTRIAXone) 1 grams Route: IV; Rate: per protocol; Site: right forearm;df1 01:10 Follow up: IV Status: Completed infusion; IV Intake: 10ml bb 01:06 Drug: Zofran (Ondansetron) 4 mg Route: IVP; Site: right antecubital; df1 03:53 Follow up: Response: Nausea is decreased df1 Intake: 01:10 IV: 10ml; Total: 10ml. bb 04:11 IV: 700ml; Total: 710ml. bb Outcome: 02:56 Discharge ordered by . arin 04:10 Discharged to home ambulatory. bb 04:10 Condition: stable 04:10 Discharge instructions given to patient, Instructed on discharge instructions, Demonstrated understanding of instructions, follow-up care, Prescriptions given X 2. 04:11 Patient left the ED. bb Signatures: Dispatcher [employer] EDMS Miguel Martinez MD MD cha Ballard, Brenda, RN RN bb Elsy Beyer Lauren, RN RN ld1 Samra Sousa df1 Corrections: (The following items were deleted from the chart) 01:11 01:04 SARS-COV-2 RT PCR+MOL.LAB.BRZ drawn and sent. df1 EDMS 01:11 01:05 Influenza Screen (A \T\ B)+BA.LAB.BRZ drawn and sent. df1 EDMS 01:11 01:05 Respiratory Syncytial Virus Ag+BA.LAB.BRZ drawn and sent. df1 EDMS
[2021-08-11 04:21] VITALS: TEMP 98.5
[2021-08-11 04:24] VITALS: BP 155/76; O2SAT 99
--- NOTE | 2021-08-11 08:42 | RAD REPORT ---
EXAM DESCRIPTION: Beena Single View08/11/2021 12:49 am CLINICAL HISTORY: Cough COMPARISON: January 2021 FINDINGS: The lungs appear clear of acute infiltrate. The heart is normal size. Pacemaker leads are in place IMPRESSION: No acute abnormalities displayed
--- NOTE | 2021-08-11 13:04 | RAD REPORT ---
EXAM DESCRIPTION: CT - Chest Abdomen Pelvis W Cont - 08/11/2021 6:13 am CLINICAL HISTORY: 70 years Female Cough;Fever. TECHNIQUE :CT imaging of the chest, abdomen and pelvis with intravenous contrast administration. Sag ittal and coronal reconstructed images were performed. The CT study is performed according to ALARA ( as low as reasonably achievable) or ALARA/IMAGE GENTLY, with automatic adjustment of mA and/or kV acc ording to patient size. Performed on: 08/11/2021 at 1:29 AM Comparisons: Prior CT abdomen and pelvis with IV contrast performed on 10/04/2020 09/05/2018 FINDINGS: CHEST: Lungs: The lungs are well expanded and are clear. There are no pleural effusions. There is no pneumot horax. The central airways are patent. Heart: The heart is normal in size. There is no pericardial effusion. A left subclavian bipolar p acemaker is present Mediastinum: The mediastinum is unremarkable. The mediastinal vessels are normal in caliber and con tour. There is a small hiatal hernia. Bones: No acute osseous abnormalities are identified. Soft tissues: No focal soft tissue abnormalities are identified. Lymphadenopathy: No pathologic hilar, mediastinal or axillary lymphadenopathy is identified. ABDOMEN/PELVIS: Liver: The liver is normal in size and configuration. There has been interval decrease in size of the sharply marginated cystic mass along the medial right hepatic lobe which measures approximately 2.3 x 1.8 cm in cross-sectional diameter. Liver attenuation is otherwise within normal limits. There may be trace fluid along the inferior right hepatic lobe versus breathing motion artifact. Spleen: The spleen is normal is size, configuration and attenuation. Gallbladder and bile duct: The gallbladder is absent. There is mild dilatation of the common bile d uct likely physiologic in nature following a cholecystectomy. Pancreas: The pancreas is grossly normal in size and configuration. Adrenal Glands: There is a stable low density nodule arising from the left adrenal gland measuring ap proximately 0.1 x 0.8 cm in cross-sectional diameter. This most likely represents an adrenal adenoma. The right adrenal gland is normal in size and configuration. Kidneys: The kidneys are normal in size and configuration. There is no evidence of hydronephrosis. Th ere is no evidence of nephrolithiasis. No definite solid or cystic renal mass lesions are identified. Stomach: The stomach is grossly normal. There is a small hiatal hernia. Bowel: The bowel gas pattern is non specific and non obstructive. Appendix: The appendix is normal. Free air: There is no evidence of free air. Free fluid: There is no evidence of free fluid. Vasculature: The aorta is normal in caliber and contour. The inferior vena cava is grossly unremarkab le. Lymphadenopathy: No pathologic lymphadenopathy is identified. Bladder: The bladder is well distended and smooth in contour. Reproductive: The uterus is grossly within normal limits. There is widening of the endometrial canal which measures approximately 1 cm in diameter. There is a grossly stable 1.5 x 1.6 cm cystic left adn exal mass lesion. Bones: No acute osseous abnormalities are identified. Soft tissues: No focal soft tissue abnormalities are identified. There is a tiny fat-containing ventr al umbilical hernia. IMPRESSION: CT CHEST: 1. No evidence of acute intrathoracic disease. 2. Stable left subclavian bipolar pacemaker. CT ABDOMEN AND PELVIS: 1. No evidence of acute intra-abdominal or intrapelvic pathology. 2. Interval decrease in size of the sharply marginated cystic mass along the medial right hepatic l obe. 3. Remote cholecystectomy. 4. Stable left adrenal adenoma. 5. Small hiatal hernia. 6. Grossly stable cystic left adnexal mass lesion. No follow-up imaging is recommended. 7. There is widening of the endometrial canal which measures approximately 1 cm in diameter. Recomm end prompt follow-up with pelvic ultrasound. 8. There may be trace fluid along the inferior right hepatic lobe versus breathing motion artifact. Electronically signed by: Tammy Sarmiento DO 08/11/2021 2:47 AM [employer] Due to temporary technical issues with the PACS/Fluency reporting system, reports are being signed by the in house radiologists without review as a courtesy to insure prompt reporting. The interpreting radiologist is fully responsible for the content of the report.
--- NOTE | 2021-08-12 08:06 | EKG ---
Test Date: 2021-08-11 Test Time: 01:41:44 [place] Operator: ALOK MEASUREMENT RESULTS: Intervals: Rate: 71 NE: 220 QRSD: 152 QT: 492 QTc: 534 [place]: P: 67 NE: 220 QRS: 116 T: -53 INTERPRETIVE STATEMENTS: Atrial-sensed ventricular-paced rhythm with prolonged AV conduction Abnormal ECG Compared to ECG 01/24/2021 22:37:31 No significant changes Electronically Signed On 08-12-21 08:03:26 [employer] by Sukhjinder Darnell
== END 2021-08-11 04:11 | disposition home or self-care (01) ==
LOC: ER 23:12
DX: R05.9 Cough, unspecified (principal); I10 Essential (primary) hypertension; Z20.822 Contact with and (suspected) exposure to COVID-19; E78.00 Pure hypercholesterolemia, unspecified; Z88.0 Allergy status to penicillin; Z88.1 Allergy status to other antibiotic agents; Z88.2 Allergy status to sulfonamides; Z88.5 Allergy status to narcotic agent
CPT/HCPCS: 93005; 87088; 85025; 87086; 80048; 36415; 83735; 85610; 82565; 80076; 83605; 84484; 83690; 83880; 0241U; 71260; 74177; 71045; 99284; Q9967; J7030; J2405

== ENCOUNTER 2021-09-16 17:46 | Emergency (ER) | payer OTHER ==
--- OUTSIDE RECORDS SUMMARY | 2021-09-16 17:50 | XMS REPORT | Continuity of Care Document ---
:1950 Author Organization [facility] t Address [address] [place] [address] Care Team Providers Name Role Phone ADY Attending Clinician Unavailable Doctor Unassigned, Name Attending Clinician Unavailable Yoko ROSE Attending Clinician Unavailable Darrick LOYA Attending Clinician Niecy BALDERRAMA S Attending Clinician Payers Payer Name Policy Type Policy Number Effective Date Expiration Date S ource [place] [id number] 2018 00:00:00 FITO/KRAIG [id number] 2019 MEDICARE ADVANTAGE 00:00:00 MEDICARE PART A [id number] 2015 \\T\\ B 00:00:00 Problems Condition Condition Condition Status Onset Resolution Last Treating Co mments Source Name Details Category Date Date Treatment Clinician Date No known No known Disease Unive rs active active ity of problems problems [facility] Allergies, Adverse Reactions, Alerts Allergy Allergy Status Severity Reaction(s) Onset Inactive Treating Comm ents Source Name Type Date Date Clinician ONDANSET DRUG Active ITCHING 2017-09 Univers TEDDY HCL 0-05 ity of (PF) 00:00: [place] [address] Medical Branch Ondanset Propensi Active Itching 2017-09 [...] Quantity Comments Source Exposure to Not sure [facility] SARS-CoV-2 [facility] (event) Branch Tobacco use and 2020-10-10 2020-10-10 Never used Universit y of exposure 00:00:00 00:00:00 [facility] Alcohol intake 2020-10-10 2020-10-10 Current University of 00:00:00 00:00:00 non-drinker of [facility] alcohol Branch (finding) Sex Assigned At 1950-12-031950-12-03 Universit y of 00:00:00 00:00:00 [facility] Smoking Status Start Date Stop Date Source Former smoker 2020-10-10 00:00:00 2020-10-10 00:00:00 [facility] Medications Ordered Filled Start Stop Current Ordering [...] 10/10/20 at Branch 1700, PAUL methocarbam Yes [id number] 750mg Take 1 Univers oL 750 mg 1-22 tablet by ity o f tablet 00:00: mouth 3 [place] 00 (three) Medical times Branch daily as needed (muscle pain). methocarbam Yes [id number] 750mg Take 1 Univers oL 750 mg [...] 05/16/20 at Branch 0100, STAT albuterol Yes [id number] 2{puff} Inhale 2 Univers 90 8-28 Puffs ity of mcg/actuati 00:00: every 4 Yifan as on inhaler 00 (four) Medical hours as Branch needed for Wheezing or Shortness of Breath. albuterol Yes [id number] 2{puff} Inhale 2 Univers 90 8-28 Puffs ity of mcg/actuati 00:00: every 4 Yifan as on inhaler 00 (four) Medical hours as Branch needed for Wheezing or Shortness of Breath. albuterol Yes [id number] 2{puff} Inhale 2 Univers 90 8-28 Puffs [...] Use 1 Un michele (FLONASE) 1-01 } [place] in ity of 50 15:14: each [place] mcg/actuati 28 nostril Medic al on nasal daily. Branch spray Indication s: 1 [place] each Nostril BID traZODONE 2015-09 Yes 50mg Take 50 mg Un michele (DESYREL) 1-01 by mouth ity of 50 mg 15:14: at [place] tablet 28 bedtime. Medical Branch fluticasone 2015-09 Yes 1{spray Use 1 Un michele (FLONASE) 1-01 } [place] in ity of 50 15:14: each [place] mcg/actuati 28 nostril Medic al on nasal daily. Branch spray Indication s: 1 [place] each Nostril BID traZODONE 2015-09 Yes 50mg Take 50 mg Un michele (DESYREL) 1-01 by mouth ity of 50 mg 15:14: at [place] tablet 28 bedtime. Medical Branch fluticasone 2015-09 Yes 1{spray Use 1 Un michele (FLONASE) 1-01 } [place] in ity of 50 15:14: each [place] mcg/actuati 28 nostril Medic al on nasal daily. Branch spray Indication s: 1 [place] each Nostril BID traZODONE 2015-09 Yes 50mg [...] ity o f 40 mg 15:14: daily. [facility] Branch lisinopril 2015-09 Yes 20mg Take 1 [...] Immunizations Ordered Filled Immunization Date Status Comments [facility] e Immunization Name Name SARS-COV-2 COVID-19 2021-02-07 Completed Unive rsity of PFIZER VACCINE 00:00:00 [facility] [place] SARS-COV-2 COVID-19 2021-01-10 Completed Unive rsity of PFIZER VACCINE 00:00:00 [facility] [place] Vital Signs Vital Name Observation Time Observation Value Comments Source Systolic blood 2020-10-11 00:00:00 106 mm[Hg] Univer sity of pressure [facility] Diastolic blood 2020-10-11 00:00:00 74 mm[Hg] Unive rsity of pressure [facility] Heart rate 2020-10-11 00:00:00 63 /min [facility] Respiratory rate 2020-10-11 00:00:00 16 /min Univ ersity [facility] Oxygen saturation in 2020-10-11 00:00:00 98 /min University of Arterial blood by [place] [email or web address] shahla Pulse oximetry Branch Body temperature 2020-10-10 [...] University of Arterial blood by [place] [email or web address] shahla Pulse oximetry Branch Body temperature 2020-10-10 [...] University of Arterial blood by [place] [email or web address] shahla Pulse oximetry Branch Body temperature 2020-05-16 02:44:00 37.22 Luisa Univ ersity [facility] [place] Medical Branch Body height 2020-05-16 02:44:00 152.4 cm [facility] [place] [facility] Body weight 2020-05-16 02:44:00 77.111 kg Universi [facility] BMI 2020-05-16 02:44:00 33.20 kg/m2 [facility] Systolic blood 2020-05-16 06:00:00 163 mm[Hg] Univer sity of pressure [facility] Diastolic blood 2020-05-16 06:00:00 74 mm[Hg] [facility] Heart rate 2020-05-16 06:00:00 64 /min [facility] Respiratory rate 2020-05-16 06:00:00 20 /min [facility] Oxygen saturation in 2020-05-16 06:00:00 98 /min [facility] Arterial blood by [facility] Pulse oximetry [place] Body temperature 2020-05-16 02:44:00 37.22 Luisa [facility] Body height 2020-05-16 02:44:00 152.4 cm [facility] Body weight 2020-05-16 02:44:00 77.111 kg [facility] BMI 2020-05-16 02:44:00 33.20 kg/m2 [facility] Procedures Procedure Date / Time Performed Performing Clinician [facility] e EXTERNAL PROVIDER - 2021-03-20 05:01:00 Doctor Unassigned, No Un [facility] ADC REFERRAL Name Medical Branch LIPASE 2020-10-10 23:18:00 [facility] 2020-10-10 23:18:00 Anabela Hollingsworth [facility] ([id number]) [facility] (ALB,T.PRO,BILI T,BU/BC,ALT,AST,ALK PHOS) BASIC METABOLIC PANEL 2020-10-10 23:18:00 HollingsworthAnabela sanchez [facility] (NA, K, CL, CO2, Medical Branch GLUCOSE, BUN, CREATININE, CA) CBC WITH DIFF 2020-10-10 23:18:00 [facility] 2020-10-10 23:04:00 [facility] PELVIS WO 2020-10-10 22:23:01 Anabela Hollingsworth [facility] CONTRAST Medical Branch NOTICE OF PRIVACY 2020-10-10 21:29:06 Doctor Unassigned, No [facility] Name Medical Branch CONSENT/REFUSAL FOR 2020-10-10 21:28:36 Doctor Unassigned, No [facility] DIAGNOSIS AND Name Medical Branch TREATMENT EKG-12 LEAD 2020-05-16 05:28:45 Margaret Pemberton [facility] LIPASE 2020-05-16 04:35:00 Margaret Pemberton [facility] TROPONIN I 2020-05-16 04:35:00 Margaret Pemberton [facility] COMP. METABOLIC PANEL 2020-05-16 04:35:00 Margaret Pemberton [facility] ([id number]) Medical Branch CBC WITH DIFF 2020-05-16 04:35:00 Margaret Pemberton [facility] COVID-19 (ID NOW RAPID 2020-05-16 04:35:00 Margaret Pemberton [facility] TESTING) Medical Branch XR CHEST 1 VW 2020-05-16 04:16:00 Margaret Pemberton [facility] URINALYSIS 2020-05-16 03:08:00 Shreyas Mota [facility] NOTICE OF PRIVACY 2020-05-16 02:35:16 Doctor Unassigned, No [facility] Name Medical Branch CONSENT/REFUSAL FOR 2020-05-16 02:34:46 Doctor Unassigned, No [facility] [place] DIAGNOSIS AND Name Medical Branch TREATMENT Encounters Start End Encounter Admission Attending Care Care Encounter Source Date/Time Date/Time Type Type Clinicians Facility Department ID 2021-07-18 Emergency [facility] [id number] Univers 18:58:18 [facility] 2021-07-17 Emergency [facility] [id number] Univers 14:37:11 [facility] 2021-05-22 2021-05-22 Outpatient Emeka GARSIA, [facility] [id number] Univers 15:40:00 15:40:00 SHREYAS [id number] [facility] 2021-05-22 2021-05-22 Outpatient Emeka GARSIA, [facility] [id number] Univers 15:40:00 15:40:00 SHREYAS cabralesy o [facility] 2021-05-07 2021-05-07 Outpatient Emeka ADY, [facility] [id number] Univers 10:00:00 10:00:00 SHREYAS [id number] ity o f [facility] 2021-05-07 2021-05-07 Outpatient Emeka ADY [facility] [id number] Univers 10:00:00 10:00:00 SHREYAS cabralesy o [facility] 2021-03-20 2021-03-20 Orders Doctor HILDA [id number] 00:00:00 00:00:00 Only Unassigned, HILARY [id number] [place] [facility] 4.2.7.2.686 [id number] 2021-03-20 2021-03-20 Orders Doctor HILDA [id number] Univers 00:00:00 00:00:00 Only Unassigned, HILARY 350.1.13.10 ity [place] [facility] 4.2.7.2.686 Yifan as [id number] [address] 2021-02-07 2021-02-07 Outpatient [facility] [id number] Univers 09:15:00 09:15:00 [id number] [facility] 2021-02-07 2021-02-07 Outpatient R [facility] [id number] Univers 09:15:00 09:15:00 ity [facility] 2021-01-31 2021-01-31 Outpatient [facility] [id number] Univers 09:15:00 09:15:00 [id number] [facility] 2021-01-10 2021-01-10 Outpatient Emeka ROSE, [facility] [id number] Univers 09:30:00 09:30:00 CORNELIUS [id number] [facility] 2021-01-10 2021-01-10 Outpatient Emeka ROSE, [facility] [id number] Univers 09:30:00 09:30:00 CORNELIUS [facility] 2020-10-10 2020-10-10 Emergency Hollingsworth, [facility] [id number] 15:39:00 18:33:00 Anabela Queen [id number] [place] [address] [place] [address] [id number] 2020-10-10 2020-10-10 Emergency [place]ingsworth, [facility] [id number] [facility] 15:39:00 18:33:00 Anabela Queen 350.1.13.10 i ty of [place] 4.2.7.2.686 [facility] [id number] [place] [address] Branch 2020-05-15 2020-05-16 [facility] [id number] 21:47:00 01:20:00 Margaret Queen [id number] [place] [address] [place] [address] [id number] 2020-05-15 2020-05-16 Emergency [facility] [id number] [facility] 21:47:00 01:20:00 Margaret Queen [id number] i ty of [place] [address] [place] [address] [id number] [place] [address] Branch Results Test Description Test Time Test Comments Results Result Comments Source Hepatic Function Panel (ALB, T.PRO, BILI T, BU/BC, ALT , AST, 2020-10-10 23:54:00 ALK PHOS) Test Item Value Reference Range Interpretation Comme nts TOTAL BILI (test code = 2462588703) 0.5 mg/dL 0.1-1.1 BILI UNCON (test code = 2881023683) 0.4 mg/dL 0.1-1.1 BILI CONJ (test code = 2010486164) 0.0 mg/dL 0-0.3 T PROTEIN (test code = 7680710525) 8.3 g/dL 6.3-8.2 H ALBUMIN (test code = 8936914211) 4.5 g/dL 3.5-5 ALK PHOS (test code = 9661637766) 86 U/L 34-122 ALTv (test code = 1742-6) 17 U/L 5-35 AST(SGOT) (test code = 1622112332) 31 U/L 13-40 Lab Interpretation (test code = 94314-6) Abnormal [facility] [id number] 23:54:00 Test Item Value Reference Range Interpretation Comments LIPASE (test code = 2461498087) 60 U/L 0-220 Lab Interpretation (test code = Normal 62292-1) [facility] Met[facility] Panel (NA, K, CL, CO2, GLUCOSE, BUN, CREATININE, CA)2020-10-10 23:54:00 Test Item Value Reference Range Interpretation Comments NA (test code = 140 mmol/L 135-145 8180681534) K (test code = 4.7 mmol/L 3.5-5 9791289378) CL (test code = 104 mmol/L 98-108 7960042332) CO2 TOTAL (test code = 28 mmol/L 23-31 2943301771) AGAP (test code = 2-16 2936280843) BUN (test code = 17 mg/dL 7-23 5461830219) GLUCOSE (test code = 92 mg/dL 70-110 2140248773) CREATININE (test code 0.81 mg/dL 0.5-1.04 = 9407614965) CALCIUM (test code = 9.3 mg/dL 8.6-10.6 1197800743) eGFR Calculation mL/min/1.73m2 (Non-) (test code = 8293849724) eGFR Calculation mL/min/1.73m2 () (test code = 9929947152) JOHN (test code = JONH) Association of Glomerular Filtration Rate (GFR) and [...] or urine or abnormalities in imaging tests). [facility]ysis2021-01-22 23:41:00 Test Item Value Reference Range Interpretation Comments APPEARANCE (test code = Hazy Clear A 7924844300) COLOR (test code = Yellow Yellow 5276471400) PH (test code = 4.8-8.0 0208147678) SP GRAVITY (test code = 1.003-1.030 3567325970) GLU U QUAL (test code = Normal Normal 2102643939) BLOOD (test code = Negative Negative INTERFERE NCE FROM 6858954655) ASCORBIC ACID M AY CAUSE FALSE NEG ATIVE RESULT KETONES (test code = Negative Negative 1393732799) PROTEIN (test code = Negative Negative 2887-8) UROBILIN (test code = Normal Normal 6774429331) BILIRUBIN (test code = Negative Negative 4208775143) NITRITE (test code = Negative Negative 0520932425) LEUK NESS (test code = 250/uL Negative A 6604251951) RBC/HPF (test code = See_Comment [Autom ated message] 6454486334) The system [employer] generated this result transmitted ref erence range: 0 - 3 HP F. The reference range was not used to int erpret this result as normal/abnormal . WBC/HPF (test code = See_Comment [Autom ated message] 5105886024) The system [employer] generated this result transmitted ref erence range: 0 - 5 HP F. The reference range was not used to int erpret this result as normal/abnormal . BACTERIA (test code = Negative Negative 8338635042) MUCOUS (test code = Slight Negative LPF A 3296165032) SQ EPITH (test code = HPF 0988430873) Lab Interpretation (test Abnormal code = 76702-4) [facility] with [id number] 23:36:00 Test Item Value Reference Range Interpretation [...] RDW-SD (test code = 46.5 fL 39-49.9 74645-6) RDW-CV (test code = 14.4 % 12-15.5 788-0) PLT (test code = See_Comment [Automated 777-3) message] The sy stem which generated this result transmitted reference range : 166 - 358 10*3/ ?L. The reference r susan was not used to interpret this result as normal/abnormal . MPV (test code = 9.5 fL 9.5-12.9 53975-3) NRBC/100 WBC (test See_Comment [Automat ed code = 4757120155) message] The system which generated this result transmitted reference range : 0.0 - 10.0 /100 WBCs. The refer ence range was not u sed to interpret th is result as normal/abnormal . NRBC x10^3 (test code <0.01 See_Comment [Auto mated = 5810720542) message] The s REHtem which generated this result transmitted reference range : 10*3/?L. The reference range was not used to interpret this result as normal/abnormal . GRAN MAT (NEUT) % 53.6 % (test code = 770-8) IMM GRAN % (test code 0.20 % = 1271589997) LYMPH % (test code = 36.6 % 736-9) MONO % (test code = 8.6 % 5905-5) EOS % (test code = 0.7 % 713-8) BASO % (test code = 0.3 % 706-2) GRAN MAT x10^3(ANC) 3.16 10*3/uL 1.88-7.09 (test code = 7644405797) IMM GRAN x10^3 (test <0.03 0-0.06 code = 6597219078) LYMPH x10^3 (test code 2.16 10*3/uL 1.32-3.29 = 731-0) MONO x10^3 (test code 0.51 10*3/uL 0.33-0.92 = 742-7) EOS x10^3 (test code = 0.04 10*3/uL 0.03-0.39 711-2) BASO x10^3 (test code <0.03 0.01-0.07 = 704-7) Lab Interpretation Abnormal (test code = 39591-6) [facility] Abdom[facility]/Pelvis W/O [id number] 23:05:431. ?Interval enlargement of cystic lesion within the medial segment 7 [id number]. Central fluid attenuation suggests a simple cyst. [...] cystic lesion within the medial segment 7 dmxmg9600. Central fluid attenuation suggests a simple cyst. Considerconfirmation with multiphasic CT or MRI given interval growth. 2. Status post cholecystectomy.3. Punctate bilateral nonobstructive nephrolithiasis.4. Left adrenal benign adenoma.5. Left ovarian 1.7 cm cyst. A ttention on follow-up in 6 weeks.6. Scarring in the ventral abdominal wall and small fat-containingumbilical hernia.[facility] CenterTROPONIN [id number] 05:48:00 Test Item Value Reference Range Interpretation Comments TROPONIN I (test 0.029 ng/mL See_Comment [Automated code = 2207436133) message] The system which generated this result [...] ? Lab Interpretation Normal (test code = 48365-2) [facility] CHEST 1 [id number] 05:11:31 No acute cardiopulmonary abnormality. Preliminary Report [...] this study and agree withthe above report. [facility]. METABOLIC PANEL (91283)2020-05-16 05:05:00 Test Item Value Reference Range Interpretation Comments NA (test code = 140 mmol/L 135-145 5529431578) K (test code = 4.6 mmol/L 3.5-5 2024971232) CL (test code = 108 mmol/L 98-108 6793646711) CO2 TOTAL (test code = 29 mmol/L 23-31 7222666339) AGAP (test code = 2-16 9078172404) BUN (test code = 18 mg/dL 7-23 6915917546) GLUCOSE (test code = 108 mg/dL 70-110 3728627134) CREATININE (test code = 0.92 mg/dL 0.5-1.04 1693925232) TOTAL BILI (test code = 0.4 mg/dL 0.1-1.2 5457261198) CALCIUM (test code = 9.3 mg/dL 8.6-10.6 0167940780) T PROTEIN (test code = 8.1 g/dL 6.3-8.2 3443810185) ALBUMIN (test code = 4.2 g/dL 3.5-5 8623358929) ALK PHOS (test code = 71 U/L 34-122 0000026409) ALTv (test code = 20 U/L 5-35 1742-6) AST(SGOT) (test code = 50 U/L 13-40 H 2979598623) eGFR Calculation mL/min/1.73m2 (Non-) (test code = 7935192323) eGFR Calculation mL/min/1.73m2 () (test code = 5142088077) JOHN (test code = JOHN) Association of [...] tests). Lab Interpretation Abnormal (test code = 93858-5) [facility]2020-08-28 05:04:00 Test Item Value Reference Range Interpretation Comments LIPASE (test code = 4320431140) 48 U/L 0-220 Lab Interpretation (test code = Normal 04056-5) [facility] Center[facility]OVID[facility] (ID NOW RAPID TESTING)2020-05-16 05:01:00 Test Item Value Reference Range Interpretation Comments SARS-CoV-2 Rapid ID NOW Not Detected Not Detected (test code = 77852-0) JOHN (test code = JOHN) ID NOW COVID-19 Assay is an isothermal nucleic acid amplification test intended for the qualitative detection of nucleic acid from SARS-CoV-2 viral RNA in nasopharyngeal (INFORMATION TECHNOLOGY OFFICER) specimens. It is used under Emergency Use [...] indicated. Lab Interpretation Normal (test code = 84790-6) [facility] WITH [id number] 04:46:00 Test Item Value Reference Range Interpretation Comments WBC (test code = See_Comment [Automated 8896-2) message] The sy stem which generated this result transmitted reference range : 4.30 - 11.10 10*3/?L. The reference range was not used to interpret this result as normal/abnormal . RBC (test code = See_Comment [Automated 255-8) message] The sy stem which generated this [...] RDW-SD (test code = 49.1 fL 39-49.9 87232-2) RDW-CV (test code = 15.1 % 12-15.5 788-0) PLT (test code = See_Comment [Automated 777-3) message] The sy stem which generated this result transmitted reference range : 166 - 358 10*3/ ?L. The reference r susan was not used to interpret this result as normal/abnormal . MPV (test code = 9.8 fL 9.5-12.9 59334-2) NRBC/100 WBC (test See_Comment [Automat ed code = 0472410614) message] The system which generated this result transmitted reference range : 0.0 - 10.0 /100 WBCs. The refer ence range was not u sed to interpret th is result as normal/abnormal . NRBC x10^3 (test code <0.01 See_Comment [Auto mated = 7523092259) message] The s ystem which generated this result transmitted reference range : 10*3/?L. The reference range was not used to interpret this result as normal/abnormal . GRAN MAT (NEUT) % 50.8 % (test code = 770-8) IMM GRAN % (test code 0.40 % = 6910240871) LYMPH % (test code = 39.1 % 736-9) MONO % (test code = 7.7 % 5905-5) EOS % (test code = 1.6 % 713-8) BASO % (test code = 0.4 % 706-2) GRAN MAT x10^3(ANC) 2.90 10*3/uL 1.88-7.09 (test code = 2025970058) IMM GRAN x10^3 (test <0.03 0-0.06 code = 6477630006) LYMPH x10^3 (test code 2.23 10*3/uL 1.32-3.29 = 731-0) MONO x10^3 (test code 0.44 10*3/uL 0.33-0.92 = 742-7) EOS x10^3 (test code = 0.09 10*3/uL 0.03-0.39 711-2) BASO x10^3 (test code <0.03 0.01-0.07 = 704-7) Lab Interpretation Abnormal (test code = 19618-7) [facility]IS2020-08-28 03:37:00 Test Item Value Reference Range Interpretation Comments APPEARANCE (test code = Clear Clear 5272722899) COLOR (test code = Yellow Yellow 9090733221) PH (test code = 4.8-8.0 9477629012) SP GRAVITY (test code = 1.003-1.030 2734401196) GLU U QUAL (test code = Normal Normal 9327926215) BLOOD (test code = Negative Negative INTERFERE NCE FROM 4847194873) ASCORBIC ACID M AY CAUSE FALSE NEG ATIVE RESULT KETONES (test code = Negative Negative 6158832598) PROTEIN (test code = Negative Negative 2887-8) UROBILIN (test code = Normal Normal 4192185837) BILIRUBIN (test code = Negative Negative 9872582201) NITRITE (test code = Negative Negative 7490022874) LEUK NESS (test code = Negative Negative 4468432966) RBC/HPF (test code = See_Comment [Autom ated message] 9559486734) The system [employer] generated this result transmitted ref erence range: 0 - 3 HP F. The reference range was not used to int erpret this result as normal/abnormal . WBC/HPF (test code = See_Comment [Autom ated message] 9540351281) The system [employer] generated this result transmitted ref erence range: 0 - 5 HP F. The reference range was not used to int erpret this result as normal/abnormal . BACTERIA (test code = Few Negative A 2282474410) MUCOUS (test code = Slight Negative LPF A 8624869185) SQ EPITH (test code = HPF 0104339558) Lab Interpretation (test Abnormal code = 29921-6) [facility]"
[2021-09-16 22:28] LABS: Absolute Lymphocytes (CBC) 1.8 K/uL (0.7-4.9); Hematocrit 44.5 % (36.0-45.0); Lymphocytes % 22.1 % (15.3-44.8); MPV 8.1 fL (7.6-11.3); RBC Red Blood Cell Count 5.27 M/uL (3.86-4.86)
[2021-09-16 22:40] LABS: Urine Blood 1+ (Negative); Urine Glucose Negative (Negative); Urine Protein Trace (Negative); Urine Specific Gravity >=1.030 (1.005-1.030); Urine pH 5.5 (5.0-7.0)
[2021-09-16 22:45] LABS: ALT/SGPT 36 U/L (12-78); AST/SGOT 27 U/L (15-37); Albumin 3.6 g/dL (3.4-5.0); Alkaline Phosphatase 98 U/L (45-117); BUN Blood Urea Nitrogen 21 mg/dL (7-18); Bicarbonate 28 mmol/L (21-32); Bilirubin Direct < 0.1 mg/dL (0-0.2); Bilirubin Total 0.4 mg/dL (0.2-1.0); Glucose Level 111 mg/dL (74-106); Lipase 49 U/L (73-393); Potassium 5.2 mmol/L (3.5-5.1); Protein, Total 8.9 g/dL (6.4-8.2); Sodium Level 136 mmol/L (136-145)
[2021-09-17] MEDS ORDERED: ALBUTEROL 2.5 MG/3 ML NEB SOL ONE (00:09)
[2021-09-17 00:56] LABS: Urine Bacteria >50 /HPF (<20); Urine Mucus 1+ /HPF (NONE SEEN); Urine RBC <5 /HPF (NONE SEEN)
--- NOTE | 2021-09-17 00:57 | ER ---
Nurse's Notes [facility] Name: Shelia Valentine Age: 70 yrs Sex: Female : 1950 Arrival Date: 09/16/2021 Time: 17:47 Bed 19 Private MD: Diagnosis: UTI/ Urinary tract infection, site not specified;Nausea with vomiting, unspecified Presentation: 09/16 18:41 Chief complaint: Patient states: ABD and back pain that began today around 1600; states vg1 diarrhea and vomiting as well. States the pain starts in back and radiates to LLQ. Coronavirus screen: Vaccine status: Patient reports receiving the 2nd dose of the covid vaccine. Client denies travel out of the [place] in the last 14 days. Ebola Screen: Patient negative for fever greater than or equal to 101.5 degrees Fahrenheit, and additional compatible Ebola Virus Disease symptoms. Initial Sepsis Screen: Does the patient meet any 2 criteria? No. Patient's initial sepsis screen is negative. Does the patient have a suspected source of infection? No. Patient's initial sepsis screen is negative. Risk Assessment: Do you want to hurt yourself or someone else? Patient reports no desire to harm self or others. Onset of symptoms was September 16, 2021. 18:41 Method Of Arrival: EMS: [facility] vg1 18:41 Acuity: ADDI 3 vg1 Triage Assessment: 18:44 General: Appears in no apparent distress. uncomfortable, Behavior is calm, cooperative. vg1 Pain: Complains of pain in back and left upper quadrant Pain currently is 9 out of 10 on a pain scale. Also complains of nausea. GI: Abdomen is round non-distended, Reports diarrhea, nausea, vomiting. : Reports burning with urination. Historical: - Allergies: 18:44 Cipro; vg1 18:44 Codeine; vg1 18:44 Demerol; vg1 18:44 HYDROCODONE; vg1 18:44 Morphine; vg1 18:44 PENICILLINS; vg1 18:44 Sulfa (Sulfonamide Antibiotics); vg1 - Home Meds: 18:44 lisinopril 20 mg Oral tab 1 tab twice daily [Active]; meloxicam 7.5 mg Oral tab 1 tab vg1 twice a day [Active]; pantoprazole 40 mg Oral TbEC 1 tab once daily [Active]; Indomethacin Oral [Active]; Oxybutynin Chloride Oral [Active]; - PMHx: 18:44 BRADYCARDIA; CAD; chest pain; GERD; High Cholesterol; Hypertension; Kidney stones; vg1 Osteoporosis; Pancreatitis; Sleep Apnea; Arthritis; - Immunization history:: Client reports receiving the 2nd dose of the Covid vaccine. - Social history:: Smoking status: Patient denies any tobacco usage or history of. Screenin/30 00:10 Abuse screen: Denies threats or abuse. Denies injuries from another. Nutritional mr2 screening: No deficits noted. Tuberculosis screening: No symptoms or risk factors identified. Fall Risk None identified. Assessment: 00:20 GI: Bowel sounds present X 4 quads. Abd is soft and non tender X 4 quads. mr2 01:00 Reassessment: No changes from previously documented assessment. mr2 Vital Signs: 09/16 18:41 BP 140 / 80; Pulse 72; Resp 16; Temp 97.9; Pulse Ox 100% ; Weight 74.84 kg; Height 5 vg1 ft. 5 in. (165.10 cm); Pain 9/10; 09/17 00:20 BP 133 / 77; Pulse 77; Resp 18; Temp 98.2; Pulse Ox 100% on R/A; mr2 09/16 18:41 Body Mass Index 27.46 (74.84 kg, 165.10 cm) vg1 ED Course: 09/16 17:47 Patient arrived in ED. am2 18:44 Triage completed. vg1 18:44 Arm band placed on. vg1 21:25 Rocio [facility]ave [facility]C [facility]. kb 21:25 Reese Love MD is Attending Physician. kb 21:48 Johnie Ibarra, KOBI is Primary Nurse. mr2 21:51 Basic Metabolic Panel Sent. mr2 22:58 CT Abd/Pelvis - IV Contrast Only In Process Unspecified. EDMS 23:00 Inserted saline lock: 20 gauge in right forearm, using aseptic technique. Blood oe collected. 09/17 00:20 Patient has correct armband on for positive identification. Bed in low position. Side mr2 rails up X2. 01:30 No provider procedures requiring assistance completed. IV discontinued. mr2 Administered Medications: 00:19 Drug: Albuterol 2.5 mg Route: Inhalation; mr2 00:20 Not Given (md aparicio'dd): NS 0.9% 500 ml IV at bolus once mr2 00:20 Not Given (Patient Refused): Zofran (Ondansetron) 4 mg IVP once; over 2 minutes mr2 01:05 Drug: Macrobid (nitrofurantoin) 100 mg Route: PO; mr2 Outcome: 00:57 Discharge ordered by MD. elise 01:30 Discharged to home ambulatory. mr2 01:30 Condition: stable 01:30 Discharge instructions given to patient. 01:40 Patient left the ED. mr2 Addendum: 09/20/2021 09:51 Addendum: Culture Results: Positive urine culture. No further action required. Bacteria e b sensitive to prescribed antibiotic. Signatures: Dispatcher [employer] EDMS Rocio Malave, JAMARIC MECHANIC SENIOR-Sarwat Vidal Amanda amElizabeth Fung Victoria, RN RN vg1 Johnie Ibarra RN RN mr2
--- NOTE | 2021-09-17 00:57 | EDPHYS ---
Physician Documentation [facility] Name: Shelia Valentine Age: 70 yrs Sex: Female : 1950 Arrival Date: 09/16/2021 Time: 17:47 Bed 19 Private MD: ED Physician Reese Love HPI: 09/16 23:21 This 70 yrs old Female presents to ER via EMS with complaints of Abdominal kb Pain, Back Pain. 23:21 The patient presents with abdominal pain in the left upper quadrant, in the left lower kb quadrant. Onset: The symptoms/episode began/occurred today, at 16:00. The symptoms radiate to Associated signs and symptoms: Pertinent positives: nausea and vomiting, Pertinent negatives: diarrhea, fever. The symptoms are described as constant. Modifying factors: The symptoms are alleviated by nothing, the symptoms are aggravated by nothing. Severity of pain: At its worst the pain was moderate in the emergency department the pain is unchanged. The patient has not experienced similar symptoms in the past. The patient has not recently seen a physician. Historical: - Allergies: 18:44 Cipro; vg1 18:44 Codeine; vg1 18:44 Demerol; vg1 18:44 HYDROCODONE; vg1 18:44 Morphine; vg1 18:44 PENICILLINS; vg1 18:44 Sulfa (Sulfonamide Antibiotics); vg1 - Home Meds: 18:44 lisinopril 20 mg Oral tab 1 tab twice daily [Active]; meloxicam 7.5 mg Oral tab 1 tab vg1 twice a day [Active]; pantoprazole 40 mg Oral TbEC 1 tab once daily [Active]; Indomethacin Oral [Active]; Oxybutynin Chloride Oral [Active]; - PMHx: 18:44 BRADYCARDIA; CAD; chest pain; GERD; High Cholesterol; Hypertension; Kidney stones; vg1 Osteoporosis; Pancreatitis; Sleep Apnea; Arthritis; - Immunization history:: Client reports receiving the 2nd dose of the Covid vaccine. - Social history:: Smoking status: Patient denies any tobacco usage or history of. ROS: 23:21 Constitutional: Negative for fever, chills, and weight loss. kb 23:21 Abdomen/GI: Positive for abdominal pain, nausea and vomiting. 23:21 All other systems are negative. Exam: 23:21 Constitutional: This is a well developed, well nourished patient who is awake, alert, kb and in no acute distress. Head/Face: Normocephalic, atraumatic. ENT: Moist Mucous membranes Cardiovascular: Regular rate and rhythm with a normal S1 and S2. No gallops, murmurs, or rubs. No pulse deficits. Respiratory: Respirations even and unlabored. No increased work of breathing. Talking in full sentences Skin: Warm, dry with normal turgor. Normal color. MS/ Extremity: Pulses equal, no cyanosis. Neurovascular intact. Full, normal range of motion. Neuro: Awake and alert, GCS 15, oriented to person, place, time, and situation. Moves all extremities. Normal gait. Psych: Awake, alert, with orientation to person, place and time. Behavior, mood, and affect are within normal limits. 23:21 Abdomen/GI: Inspection: abdomen appears normal, Bowel sounds: normal, in all quadrants, Palpation: soft, in all quadrants, moderate abdominal tenderness, in the left upper quadrant and left lower quadrant. Vital Signs: 18:41 BP 140 / 80; Pulse 72; Resp 16; Temp 97.9; Pulse Ox 100% ; Weight 74.84 kg; Height 5 vg1 ft. 5 in. (165.10 cm); Pain 9/10; 09/17 00:20 BP 133 / 77; Pulse 77; Resp 18; Temp 98.2; Pulse Ox 100% on R/A; mr2 09/16 18:41 Body Mass Index 27.46 (74.84 kg, 165.10 cm) vg1 MDM: 09/16 21:32 Patient medically screened. kb 23:21 Data reviewed: vital signs, nurses notes. Data interpreted: Pulse oximetry: on room air kb is 100 %. Interpretation: normal. 23:57 Counseling: I had a detailed discussion with the patient and/or guardian regarding: the kb historical points, exam findings, and any diagnostic results supporting the discharge/admit diagnosis, lab results, radiology results, the need for outpatient follow up, a family practitioner, to return to the emergency department if symptoms worsen or persist or if there are any questions or concerns that arise at home. 09/17 01:01 ED course: Pt tolerating po intake. States her urine smelled strong today, micro kb ordered and shows bacteria. Will treat with antibiotics. 09/16 21:50 Order name: Basic Metabolic Panel kb 12/29 21:50 Order name: CBC with Diff kb 09/16 21:50 Order name: Hepatic Function 09/16 21:50 Order name: Lipase 09/16 21:51 Order name: Basic Metabolic Panel; Complete Time: 22:46 EDMS 09/16 21:51 Order name: CBC with Automated Diff; Complete Time: 22:35 EDMS 09/16 21:50 Order name: CT Abd/Pelvis - IV Contrast Only 09/16 21:51 Order name: Liver (Hepatic) Function; Complete Time: 22:46 EDMS 09/16 21:51 Order name: Lipase; Complete Time: 22:46 EDMS 09/16 22:40 Order name: Urine Dipstick-Ancillary; Complete Time: 22:44 EDMS 09/17 00:14 Order name: Urine Microscopic Only; Complete Time: 00:56 kb 09/17 00:58 Order name: Urine Culture EDIL 09/16 21:50 Order name: IV Saline Lock; Complete Time: 21:51 09/16 21:50 Order name: Labs collected and sent; Complete Time: 21:51 09/16 21:50 Order name: Urine Dipstick-Ancillary (obtain specimen) 09/17 00:04 Order name: PO challenge; Complete Time: 00:19 kb Administered Medications: 00:19 Drug: Albuterol 2.5 mg Route: Inhalation; mr2 00:20 Not Given ( dc'dd): NS 0.9% 500 ml IV at bolus once mr2 00:20 Not Given (Patient Refused): Zofran (Ondansetron) 4 mg IVP once; over 2 minutes mr2 01:05 Drug: Macrobid (nitrofurantoin) 100 mg Route: PO; mr2 Disposition: 03:20 Co-signature as Attending Physician, Reese Love MD. pkl Disposition Summary: 09/17/21 00:57 Discharge Ordered Location: Home kb Condition: Stable kb Diagnosis - UTI/ Urinary tract infection, site not specified kb - Nausea with vomiting, unspecified kb Followup: kb - With: Emergency Department - When: As needed - Reason: Worsening of condition Followup: kb - With: Private Physician - When: 2 - 3 days - Reason: Recheck today's complaints, Continuance of care, Re-evaluation by your physician Discharge Instructions: - Discharge Summary Sheet kb - Nausea and Vomiting, Adult, [id number] kb - Urinary Tract Infection, Adult, [id number] kb Forms: - Medication Reconciliation Form kb - Thank You Letter kb - Antibiotic Education kb - Prescription Opioid Use kb Prescriptions: - Zofran 4 mg Oral Tablet - take 1 tablet by ORAL route every 6 hours As needed; 20 tablet; Refills: 0, kb Product Selection Permitted - Macrobid 100 mg Oral Capsule - take 1 capsule by ORAL route every 12 hours for 10 days; 20 capsule; Refills: kb 0, Product Selection Permitted Signatures: Dispatcher [employer] EDIL Rocio Malvae, SHALINI-C Reese Marie MD MD pkl Garcia, Victoria RN RN vg1 Johnie Ibarra RN RN mr2 Corrections: (The following items were deleted from the chart) 09/16 23:22 23:21 Onset: The symptoms/episode began/occurred yesterday, kb kb 23:22 23:21 The symptoms do not radiate. kb kb
[2021-09-17] MEDS ORDERED: NITROFURAN MACRO 100 MG CAP PO ONE (01:04)
[2021-09-17] MEDS ORDERED: ONDANSETRON 4 MG (ODT) TAB ONE (01:04)
[2021-09-17 01:44] VITALS: O2SAT 100
[2021-09-17 01:45] VITALS: BP 133/77; TEMP 98.2
--- NOTE | 2021-09-17 14:58 | RAD REPORT ---
EXAM DESCRIPTION: CT ABDOMEN AND PELVIS WITH CONTRAST. CLINICAL HISTORY: Abdominal pain. COMPARISON: CT chest abdomen and pelvis 08/11/2021, CT abdomen and pelvis with contrast 09/05/2018. TECHNIQUE: Axial CT imaging of the abdomen and pelvis performed with intravenous contrast. Reformatt ed coronal and sagittal images reviewed. A dose reduction technique was utilized with automated exposure control according to patient size. FINDINGS: Clear lung bases. Heart is normal in size. Pacemaker leads is in the right atrium and vent ricle. Normal liver size and contour. Mild decreased attenuation due to fatty infiltration. Medial right lob e is 2.3 cm low-density mass compatible with benign cysts. No biliary dilatation. Gallbladder has bee n resected. Normal spleen. Unremarkable pancreas. Right adrenal appears normal. Stable 1.2 cm left ad renal nodule. No interval change since 2018. Right and left kidney are normal in contour and size. There are a few punctate nonobstructing calculi in the right and left renal pelvis. There is a lateral left renal 9 mm cyst. No perinephric edema. Mild aorta atherosclerosis. Normal caliber inferior vena cava. Mesenteric vessels appear normal. Smal l hiatal hernia. Stomach and small bowel loops are otherwise normal. Normal right lower quadrant appe ndix. Mild diverticulosis in the descending colon. No diverticulitis. No ascites or free air. No mese nteric edema. Unremarkable decompressed bladder. Normal uterus. 1.6 cm left ovarian cyst. Vacuum disc with degenera tive disc narrowing L5-S1. Intact bony pelvis. Normal hips. IMPRESSION: 1. No acute finding within the abdomen or pelvis to account for pain. 2. Small hiatal hernia. 3. Stable right hepatic cyst. 4. Stable left adrenal nodule since 2018 suggestive of a benign adenoma. 5. Left renal cyst. 6.1.6 cm left ovarian simple-appearing cyst. No follow-up imaging is recommended. Reference: JACR 2019;17(2):248-254 Electronically signed by: Odalys Miguel DO 09/16/2021 11:44 PM ARSON INVESTIGATOR Due to temporary technical issues with the PACS/Fluency reporting system, reports are being signed by the in house radiologist without review as a courtesy to ensure prompt reporting. The interpreting r adiologist is fully responsible for the content of the report.
== END 2021-09-17 01:40 | disposition home or self-care (01) ==
LOC: ER 17:46
DX: N39.0 Urinary tract infection, site not specified (principal); R11.2 Nausea with vomiting, unspecified; I25.10 Atherosclerotic heart disease of native coronary artery without angina pectoris; I10 Essential (primary) hypertension; Z88.0 Allergy status to penicillin; Z88.2 Allergy status to sulfonamides
CPT/HCPCS: 87088; 85025; 87086; 80048; 36415; 82565; 80076; 87077; 87186; 81003; 81015; 83690; 74177; 99284; Q9967

== ENCOUNTER 2022-02-21 14:07 | Emergency (ER) | payer OTHER ==
--- OUTSIDE RECORDS SUMMARY | 2022-02-21 14:11 | XMS REPORT | Continuity of Care Document ---
:1950 Author Organization [facility] t Address [address] [place] [address] Care Team Providers Name Role Phone ADY Attending Clinician Unavailable Doctor Unassigned, Name Attending Clinician Unavailable Yoko ROSE Attending Clinician Unavailable Darrick LOYA Attending Clinician Navid Gould Attending Clinician Payers Payer Name Policy Type Policy Number Effective Date Expiration Date S ource [place] [id number] 2018 00:00:00 FITO/KRAIG [id number] 2019 MEDICARE ADVANTAGE 00:00:00 MEDICARE PART A [id number] 2015 \\T\\ B 00:00:00 Problems Condition Condition Condition Status Onset Resolution Last Treating Co mments Source Name Details Category Date Date Treatment Clinician Date No known No known Disease Unive rs active active ity of problems problems [facility] Allergies, Adverse Reactions, Alerts Allergy Allergy Status Severity Reaction(s) Onset Inactive Treating Comm ents Source Name Type Date Date Clinician ONDANSET DRUG Active ITCHING 2017-09 Univers TEDDY HCL 0-05 ity of (PF) 00:00: [place] [address] Medical Branch Ondanset Propensi Active Itching 2017-09 Reaction Uni vers teddy Hcl ty to 0-05 occurred ity of (Pf) adverse 00:00: in the [place] reaction 00 ER. Medical s Branch Hydroxyz Propensi Active Nausea Only 2006-09 [...] Quantity Comments Source Exposure to Not sure [facility] SARS-CoV-2 [facility] (event) Branch Tobacco use and 2020-10-10 2020-10-10 Never used Universit y of exposure 00:00:00 00:00:00 [facility] Alcohol intake 2020-10-10 2020-10-10 Current University of 00:00:00 00:00:00 non-drinker of [facility] alcohol Branch (finding) Sex [facility]igned At [birth year] [facility]00 [facility] Smoking Status Start Date Stop Date Source Former smoker 2020-10-10 00:00:00 2020-10-10 00:00:00 [facility] Medications Ordered Filled Start Stop Current Ordering [...] 10/10/20 at Branch 1700, PAUL methocarbam Yes [id number] 750mg Take 1 Univers oL 750 mg 1-22 tablet by ity o f tablet 00:00: mouth 3 [place] 00 (three) Medical times Branch daily as needed (muscle pain). methocarbam Yes [id number] 750mg Take 1 Univers oL 750 mg [...] 05/16/20 at Branch 0100, STAT albuterol Yes [id number] 2{puff} Inhale 2 Univers 90 8-28 Puffs ity of mcg/actuati 00:00: every 4 [place] as on inhaler 00 (four) Medical hours as Branch needed for Wheezing or Shortness of Breath. albuterol Yes [id number] 2{puff} Inhale 2 Univers 90 8-28 Puffs ity of mcg/actuati 00:00: every 4 [place]if[place] as on inhaler 00 (four) Medical hours as Branch needed for Wheezing or Shortness of Breath. albuterol Yes [id number] 2{puff} Inhale 2 Univers 90 8-28 Puffs [...] Use 1 Un michele (FLONASE) 1-01 } [place] in ity of 50 15:14: each [place] mcg/actuati 28 nostril Medic al on nasal daily. Branch spray Indication s: 1 [place] each Nostril BID traZODONE 2015-09 Yes 50mg Take 50 mg Un michele (DESYREL) 1-01 by mouth ity of 50 mg 15:14: at [place] tablet 28 bedtime. Medical Branch fluticasone 2015-09 Yes 1{spray Use 1 Un michele (FLONASE) 1-01 } [place] in ity of 50 15:14: each [place] mcg/actuati 28 nostril Medic al on nasal daily. Branch spray Indication s: 1 [place] each Nostril BID traZODONE 2015-09 Yes 50mg Take 50 mg Un michele (DESYREL) 1-01 by mouth ity of 50 mg 15:14: at [place] tablet 28 bedtime. Medical Branch fluticasone 2015-09 Yes 1{spray Use 1 Un michele (FLONASE) 1-01 } [place] in ity of 50 15:14: each [place] mcg/actuati 28 nostril Medic al on nasal daily. Branch spray Indication s: 1 [place] each Nostril BID traZODONE 2015-09 Yes 50mg Take 50 mg Un michele (DESYREL) 1-01 by mouth ity of 50 mg 15:14: at [place] tablet 28 bedtime. Medical Branch omeprazole 2015-09 Yes 40mg Take 40 mg U nivers (PRILOSEC) 09-19 by mouth ity o f 40 mg 15:14: daily. [place] capsule 27 Medical Branch omeprazole 2015-09 Yes 40mg Take 40 mg U nivers (PRILOSEC) 09-19 by mouth ity o f 40 mg 15:14: daily. [place] capsule 27 Medical Branch omeprazole 2015-09 Yes 40mg Take 40 mg U nivers (PRILOSEC) 09-19 by mouth ity o f 40 mg 15:14: daily. [facility] 27 [facility] Branch lisinopril 2015-09 Yes 20mg Take [...] Immunizations Ordered Filled Immunization Date Status Comments [facility] e Immunization Name Name SARS-COV-2 COVID-19 2021-02-07 Completed Unive rsity of PFIZER VACCINE 00:00:00 [facility] SARS-COV-2 COVID-19 2021-01-10 Completed Unive rsity of PFIZER VACCINE 00:00:00 [facility] Vital Signs Vital Name Observation Time Observation Value Comments Source Systolic blood 2020-10-11 00:00:00 106 mm[Hg] Univer sity of pressure [facility] Diastolic blood 2020-10-11 00:00:00 74 mm[Hg] Unive rsity of pressure [facility] Heart rate 2020-10-11 00:00:00 63 /min [facility] Respiratory rate 2020-10-11 00:00:00 16 /min [facility] saturation in 2020-10-11 00:00:00 98 /min University of Arterial blood by [place] [employer] shahla Pulse oximetry Branch Body temperature 2020-10-10 21:35:00 37.11 Luisa Univ ersity of [place] [facility] Body height 2020-10-10 21:35:00 157.5 cm Universi ty [facility] [place] [facility] Body weight 2020-10-10 21:35:00 77.111 kg [facility]i ty [facility] [place] [facility] BMI 2020-10-10 21:35:00 31.09 kg/m2 Universi ty [facility] [place] [facility] Systolic blood 2020-10-11 00:00:00 106 mm[Hg] Univer sity of pressure [place] [facility] Diastolic blood 2020-10-11 00:00:00 74 mm[Hg] Unive rsity of pressure [place] [facility] Heart rate 2020-10-11 00:00:00 63 /min Universi ty [facility] [place] [facility] Respiratory rate 2020-10-11 00:00:00 16 /min Univ ersity of [place] [facility] Oxygen saturation in 2020-10-11 00:00:00 98 /min University of Arterial blood by [place] [employer] shahla Pulse oximetry Branch Body temperature 2020-10-10 21:35:00 37.11 Luisa Univ ersity [facility] [place] [facility] Body height 2020-10-10 21:35:00 157.5 cm [facility] [place] [facility] Body weight 2020-10-10 21:35:00 77.111 kg [facility] [place] [facility] BMI 2020-10-10 21:35:00 31.09 kg/m2 [facility] [place] [facility] Systolic blood 2020-05-16 06:00:00 163 mm[Hg] Univer sity of pressure [place] [facility] Diastolic blood 2020-05-16 06:00:00 74 mm[Hg] Unive rsity of pressure [place] [facility] Heart rate 2020-05-16 06:00:00 64 /min [facility]i ty [facility] [place] [facility] Respiratory rate 2020-05-16 06:00:00 20 /min Univ ersity of [place] [facility] Oxygen saturation in 2020-05-16 06:00:00 98 /min University of Arterial blood by [place] [employer] shahla Pulse oximetry Branch Body temperature 2020-05-16 02:44:00 37.22 Luisa Univ ersity [facility] [place] [facility] Body height 2020-05-16 02:44:00 152.4 cm [facility] [place] [facility] Body weight 2020-05-16 02:44:00 77.111 kg Universi [facility] BMI 2020-05-16 02:44:00 33.20 kg/m2 [facility] Systolic blood 2020-05-16 06:00:00 163 mm[Hg] Univer sity of pressure [facility] Diastolic blood 2020-05-16 06:00:00 74 mm[Hg] [facility] Heart rate 2020-05-16 06:00:00 64 /min [facility] Respiratory rate 2020-05-16 06:00:00 20 /min [facility] Oxygen saturation in 2020-05-16 06:00:00 98 /min [facility] Arterial blood by [facility] Pulse oximetry [place] Body temperature 2020-05-16 02:44:00 37.22 Luisa [facility] Body height 2020-05-16 02:44:00 152.4 cm [facility] Body weight 2020-05-16 02:44:00 77.111 kg [facility] BMI 2020-05-16 02:44:00 33.20 kg/m2 [facility] Procedures Procedure Date / Time Performed Performing Clinician [facility] e EXTERNAL PROVIDER - 2021-03-20 05:01:00 [facility], [facility] Name Medical Branch LIPASE 2020-10-10 23:18:00 [facility] 2020-10-10 23:18:00 Anabela Hollingsworth [facility] ([id number]) [facility] (ALB,T.PRO,BILI T,BU/BC,ALT,AST,ALK PHOS) BASIC METABOLIC PANEL 2020-10-10 23:18:00 HollingsworthAnabela sanchez [facility] (NA, K, CL, CO2, Medical Branch GLUCOSE, BUN, CREATININE, CA) CBC WITH DIFF 2020-10-10 23:18:00 [facility] 2020-10-10 23:04:[facility] PELVIS WO 2020-10-10 22:23:01 Anabela Hollingsworth [facility] CONTRAST Medical Branch NOTICE OF PRIVACY 2020-10-10 21:29:06 Doctor Unassigned, No [facility] PRACTICES Name Medical Branch CONSENT/REFUSAL FOR 2020-10-10 21:28:36 Doctor Unassigned, [facility] AND Name Medical Branch TREATMENT EKG-12 LEAD 2020-05-16 05:28:45 Margaret Pemberton [facility] LIPASE 2020-05-16 04:35:00 Margaret Pemberton [facility] TROPONIN I 2020-05-16 04:35:00 Margaret Pemberton [facility] COMP. METABOLIC PANEL 2020-05-16 04:35:00 Margaret Pemberton [facility] ([id number]) Medical Branch CBC WITH DIFF 2020-05-16 04:35:00 Margaret Pemberton [facility] COVID-19 (ID NOW RAPID 2020-05-16 04:35:00 Margaret Pemberton [facility] TESTING) Medical Branch XR CHEST 1 VW 2020-05-16 04:16:00 Margaret Pemberton [facility] URINALYSIS 2020-05-16 03:08:00 Shreyas Mota [facility] NOTICE OF PRIVACY 2020-05-16 02:35:16 Doctor Unassigned, No [facility] Name Medical Branch CONSENT/REFUSAL FOR 2020-05-16 02:34:46 Doctor Unassigned, No [facility] [place] DIAGNOSIS AND Name Medical Branch TREATMENT Encounters Start End Encounter Admission Attending Care Care Encounter Source Date/Time Date/Time Type Type Clinicians Facility Department ID 2021-07-18 Emergency [facility] [id number] Univers 18:58:18 [facility] 2021-07-17 Emergency [facility] [id number] Univers 14:37:11 [facility] 2021-05-22 2021-05-22 Outpatient Emeka GARSIA, [facility] [id number] Univers 15:40:00 15:40:00 SHREYAS [id number] [facility] 2021-05-22 2021-05-22 Outpatient Emeka GARSIA, [facility] [id number] Univers 15:40:00 15:40:00 SHREYAS cabralesy o [facility] 2021-05-07 2021-05-07 Outpatient R ADY, [facility] [id number] Univers 10:00:00 10:00:00 SHREYAS [id number] ity o f [facility] 2021-05-07 2021-05-07 Outpatient R ADY [facility] [id number] Univers 10:00:00 10:00:00 SHREYAS ity o [facility] 2021-03-20 2021-03-20 Orders Doctor HILDA [id number] 00:00:00 00:00:00 Only Unassigned, HILARY [id number] [place] [facility] 4.2.7.2.686 [id number] 2021-03-20 2021-03-20 Orders Doctor HILDA [id number] Univers 00:00:00 00:00:00 Only Unassigned, HILARY 350.1.13.10 ity [place] [facility] 4.2.7.2.686 Yifan as [id number] [address] 2021-02-07 2021-02-07 Outpatient [facility] [id number] Univers 09:15:00 09:15:00 [id number] [facility] 2021-02-07 2021-02-07 Outpatient R [facility] [id number] Univers 09:15:00 09:15:00 ity [facility] 2021-01-31 2021-01-31 Outpatient [facility] [id number] Univers 09:15:00 09:15:00 [id number] [facility] 2021-01-10 2021-01-10 Outpatient R MILTON, [facility] [id number] Univers 09:30:00 09:30:00 CORNELIUS [id number] [facility] 2021-01-10 2021-01-10 Outpatient R MILTON, [facility] [id number] Univers 09:30:00 09:30:00 CORNELIUS [facility] 2020-10-10 2020-10-10 Emergency [place], [facility] [id number] 15:39:00 18:33:00 Anabela Queen [id number] [place] [address] [place] [address] [id number] 2020-10-10 2020-10-[address] [facility], [facility] [id number] [facility] 15:39:00 18:33:00 Anabela Queen [id number] i ty of [place] 4.2.7.2.686 [facility] [id number] [place] [address] Branch 2020-05-15 2020-05-16 [facility] [id number] 21:47:00 01:20:00 Margaret Queen [id number] [place] [address] [place] [address] [id number] 2020-05-15 2020-05-[address] [facility] [id number] [facility] 21:47:00 01:20:00 Margaret Queen [id number] i ty of [place] 4.2.7.[address] [place] [address] [id number] [place] [address] Branch Results Test Description Test Time Test Comments Results Result Comments Source Hepatic Function Panel (ALB, T.PRO, BILI T, BU/BC, ALT , AST, 2020-10-10 23:54:00 ALK PHOS) Test Item Value Reference Range Interpretation Comme nts TOTAL BILI (test code = 6521593792) 0.5 mg/dL 0.1-1.1 BILI UNCON (test code = 1388266244) 0.4 mg/dL 0.1-1.1 BILI CONJ (test code = 1696222547) 0.0 mg/dL 0-0.3 T PROTEIN (test code = 7839920403) 8.3 g/dL 6.3-8.2 H ALBUMIN (test code = 1439669804) 4.5 g/dL 3.5-5 ALK PHOS (test code = 6152068253) 86 U/L 34-122 ALTv (test code = 1742-6) 17 U/L 5-35 AST(SGOT) (test code = 9149200157) 31 U/L 13-40 Lab Interpretation (test code = 49445-4) Abnormal [facility] [id number] 23:54:00 Test Item Value Reference Range Interpretation Comments LIPASE (test code = 1418718232) 60 U/L 0-220 Lab Interpretation (test code = Normal 18624-8) [facility] Metabolic Panel (NA, K, CL, CO2, GLUCOSE, BUN, CREATININE, CA)2020-10-10 23:54:00 Test Item Value Reference Range Interpretation Comments NA (test code = 140 mmol/L 135-145 8542900597) K (test code = 4.7 mmol/L 3.5-5 0772352099) CL (test code = 104 mmol/L 98-108 9604043436) CO2 TOTAL (test code = 28 mmol/L 23-31 7245671012) AGAP (test code = 2-16 3568223861) BUN (test code = 17 mg/dL 7-23 8308400675) GLUCOSE (test code = 92 mg/dL 70-110 0505512406) CREATININE (test code 0.81 mg/dL 0.5-1.04 = 5565432836) CALCIUM (test code = 9.3 mg/dL 8.6-10.6 7465019955) eGFR Calculation mL/min/1.73m2 (Non-) (test code = 3081115176) eGFR Calculation mL/min/1.73m2 () (test code = 1239576401) JOHN (test code = JOHN) Association of [...] or urine or abnormalities in imaging tests). [facility]way[facility]inalysis2021-01-22 23:41:00 Test Item Value Reference Range Interpretation Comments APPEARANCE (test code = Hazy Clear A 5256580756) COLOR (test code = Yellow Yellow 5680799186) PH (test code = 4.8-8.0 2272642461) SP GRAVITY (test code = 1.003-1.030 3385312055) GLU U QUAL (test code = Normal Normal 5530024383) BLOOD (test code = Negative Negative INTERFERE NCE FROM 5801639950) ASCORBIC ACID M AY CAUSE FALSE NEG ATIVE RESULT KETONES (test code = Negative Negative 7474848259) PROTEIN (test code = Negative Negative 2887-8) UROBILIN (test code = Normal Normal 8500134161) BILIRUBIN (test code = Negative Negative 0866547075) NITRITE (test code = Negative Negative 3357389234) LEUK NESS (test code = 250/uL Negative A 9427305749) RBC/HPF (test code = See_Comment [Autom ated message] 0223224071) The system [employer] generated this result transmitted ref erence range: 0 - 3 HP F. The reference range was not used to int erpret this result as normal/abnormal . WBC/HPF (test code = See_Comment [Autom ated message] 2374612701) The system [employer] generated this result transmitted ref erence range: 0 - 5 HP F. The reference range was not used to int erpret this result as normal/abnormal . BACTERIA (test code = Negative Negative 6394556503) MUCOUS (test code = Slight Negative LPF A 9848526158) SQ EPITH (test code = HPF 7396045466) Lab Interpretation (test Abnormal code = 25414-7) [facility] with [id number] 23:36:00 Test Item Value Reference Range Interpretation [...] RDW-SD (test code = 46.5 fL 39-49.9 99546-3) RDW-CV (test code = 14.4 % 12-15.5 788-0) PLT (test code = See_Comment [Automated 777-3) message] The sy stem which generated this result transmitted reference range : 166 - 358 10*3/ ?L. The reference r susan was not used to interpret this result as normal/abnormal . MPV (test code = 9.5 fL 9.5-12.9 73721-1) NRBC/100 WBC (test See_Comment [Automat ed code = 0670724728) message] The system which generated this result transmitted reference range : 0.0 - 10.0 /100 WBCs. The refer ence range was not u sed to interpret th is result as normal/abnormal . NRBC x10^3 (test code <0.01 See_Comment [Auto mated = 0221541819) message] The s Edut[employer] which generated this result transmitted reference range : 10*3/?L. The reference range was not used to interpret this result as normal/abnormal . GRAN MAT (NEUT) % 53.6 % (test code = 770-8) IMM GRAN % (test code 0.20 % = 3527202758) LYMPH % (test code = 36.6 % 736-9) MONO % (test code = 8.6 % 5905-5) EOS % (test code = 0.7 % 713-8) BASO % (test code = 0.3 % 706-2) GRAN MAT x10^3(ANC) 3.16 10*3/uL 1.88-7.09 (test code = 1006468420) IMM GRAN x10^3 (test <0.03 0-0.06 code = 6281069787) LYMPH x10^3 (test code 2.16 10*3/uL 1.32-3.29 = 731-0) MONO x10^3 (test code 0.51 10*3/uL 0.33-0.92 = 742-7) EOS x10^3 (test code = 0.04 10*3/uL 0.03-0.39 711-2) BASO x10^3 (test code <0.03 0.01-0.07 = 704-7) Lab Interpretation Abnormal (test code = 88118-4) [facility]way[facility] Abdomen/Pelvis W/O [id number] 23:05:431. ?Interval enlargement of cystic lesion within the medial segment 7 uyxsu9698. Central fluid attenuation suggests a simple cyst. [...] cystic lesion within the medial segment 7 bhpmm5832. Central fluid attenuation suggests a simple cyst. Considerconfirmation with multiphasic CT or MRI given interval growth. 2. Status post cholecystectomy.3. Punctate bilateral nonobstructive nephrolithiasis.4. Left adrenal benign adenoma.5. Left ovarian 1.7 cm cyst. A ttention on follow-up in 6 weeks.6. Scarring in the ventral abdominal wall and small fat-containingumbilical hernia.[facility] LakewayTROPONIN [id number] 05:48:00 Test Item Value Reference Range Interpretation Comments TROPONIN I (test 0.029 ng/mL See_Comment [Automated code = 1193967934) message] The system which generated this result [...] ? Lab Interpretation Normal (test code = 99536-5) [facility] LakewayXR CHEST 1 [id number] 05:11:31 No acute cardiopulmonary abnormality. Preliminary Report [...] this study and agree withthe above report. [facility]. METABOLIC PANEL (80843)2020-05-16 05:05:00 Test Item Value Reference Range Interpretation Comments NA (test code = 140 mmol/L 135-145 6216734365) K (test code = 4.6 mmol/L 3.5-5 4495776758) CL (test code = 108 mmol/L 98-108 7856166193) CO2 TOTAL (test code = 29 mmol/L 23-31 5173874499) AGAP (test code = 2-16 8883217399) BUN (test code = 18 mg/dL 7-23 9390420060) GLUCOSE (test code = 108 mg/dL 70-110 4249046448) CREATININE (test code = 0.92 mg/dL 0.5-1.04 0080200700) TOTAL BILI (test code = 0.4 mg/dL 0.1-1.2 8415666937) CALCIUM (test code = 9.3 mg/dL 8.6-10.6 6513615136) T PROTEIN (test code = 8.1 g/dL 6.3-8.2 9613230441) ALBUMIN (test code = 4.2 g/dL 3.5-5 4968382311) ALK PHOS (test code = 71 U/L 34-122 9765259500) ALTv (test code = 20 U/L 5-35 1742-6) AST(SGOT) (test code = 50 U/L 13-40 H 8881445482) eGFR Calculation mL/min/1.73m2 (Non-) (test code = 2429820174) eGFR Calculation mL/min/1.73m2 () (test code = 8032839862) JOHN (test code = JOHN) Association of [...] tests). Lab Interpretation Abnormal (test code = 02309-4) [facility]way[facility]IP[facility]2020-08-28 05:04:00 Test Item Value Reference Range Interpretation Comments LIPASE (test code = 5752140539) 48 U/L 0-220 Lab Interpretation (test code = Normal 47543-0) [facility]wayCOVID-19 (ID NOW RAPID TESTING)2020-05-16 05:01:00 Test Item Value Reference Range Interpretation Comments SARS-CoV-2 Rapid ID NOW Not Detected Not Detected (test code = 82112-8) JOHN (test code = JOHN) ID NOW COVID-19 Assay is an isothermal nucleic acid amplification test intended for the qualitative detection of nucleic acid from SARS-CoV-2 viral RNA in nasopharyngeal (BIODIESEL TECHNOLOGY MANAGER) specimens. It is used under Emergency Use [...] indicated. Lab Interpretation Normal (test code = 54255-5) [facility] WITH [id number] 04:46:00 Test Item Value Reference Range Interpretation Comments WBC (test code = See_Comment [Automated 2827-2) message] The sy stem which generated this result transmitted reference range : 4.30 - 11.10 10*3/?L. The reference range was not used to interpret this result as normal/abnormal . RBC (test code = See_Comment [Automated 779-8) message] The sy stem which generated this [...] RDW-SD (test code = 49.1 fL 39-49.9 38513-1) RDW-CV (test code = 15.1 % 12-15.5 788-0) PLT (test code = See_Comment [Automated 777-3) message] The sy stem which generated this result transmitted reference range : 166 - 358 10*3/ ?L. The reference r susan was not used to interpret this result as normal/abnormal . MPV (test code = 9.8 fL 9.5-12.9 43216-2) NRBC/100 WBC (test See_Comment [Automat ed code = 1909925526) message] The system which generated this result transmitted reference range : 0.0 - 10.0 /100 WBCs. The refer ence range was not u sed to interpret th is result as normal/abnormal . NRBC x10^3 (test code <0.01 See_Comment [Auto mated = 1266464122) message] The s ystem which generated this result transmitted reference range : 10*3/?L. The reference range was not used to interpret this result as normal/abnormal . GRAN MAT (NEUT) % 50.8 % (test code = 770-8) IMM GRAN % (test code 0.40 % = 4499591171) LYMPH % (test code = 39.1 % 736-9) MONO % (test code = 7.7 % 5905-5) EOS % (test code = 1.6 % 713-8) BASO % (test code = 0.4 % 706-2) GRAN MAT x10^3(ANC) 2.90 10*3/uL 1.88-7.09 (test code = 2053725500) IMM GRAN x10^3 (test <0.03 0-0.06 code = 3809541476) LYMPH x10^3 (test code 2.23 10*3/uL 1.32-3.29 = 731-0) MONO x10^3 (test code 0.44 10*3/uL 0.33-0.92 = 742-7) EOS x10^3 (test code = 0.09 10*3/uL 0.03-0.39 711-2) BASO x10^3 (test code <0.03 0.01-0.07 = 704-7) Lab Interpretation Abnormal (test code = 28451-9) [facility]INALYSIS2020-08-28 03:37:00 Test Item Value Reference Range Interpretation Comments APPEARANCE (test code = Clear Clear 3156556155) COLOR (test code = Yellow Yellow 9032948885) PH (test code = 4.8-8.0 4127487847) SP GRAVITY (test code = 1.003-1.030 9586414969) GLU U QUAL (test code = Normal Normal 3918080527) BLOOD (test code = Negative Negative INTERFERE NCE FROM 9157804244) ASCORBIC ACID M AY CAUSE FALSE NEG ATIVE RESULT KETONES (test code = Negative Negative 1769979309) PROTEIN (test code = Negative Negative 2887-8) UROBILIN (test code = Normal Normal 0052061991) BILIRUBIN (test code = Negative Negative 7217678723) NITRITE (test code = Negative Negative 0084533799) LEUK NESS (test code = Negative Negative 6167975382) RBC/HPF (test code = See_Comment [Autom ated message] 9250432492) The system [employer] generated this result transmitted ref erence range: 0 - 3 HP F. The reference range was not used to int erpret this result as normal/abnormal . WBC/HPF (test code = See_Comment [Autom ated message] 4703996342) The system [employer] generated this result transmitted ref erence range: 0 - 5 HP F. The reference range was not used to int erpret this result as normal/abnormal . BACTERIA (test code = Few Negative A [id number]) MUCOUS (test code = Slight Negative LPF A [id number]) SQ EPITH (test code = HPF [id number]) Lab Interpretation (test Abnormal code = 75814-3) [facility]"
[2022-02-21] MEDS ORDERED: methocarbamoL 500 MG TAB ONE (14:53)
[2022-02-21] MEDS ORDERED: dexAMETHasone 10 MG/ML VIAL ONE (14:53)
[2022-02-21] MEDS ORDERED: KETOROLAC 30 MG/ML INJ ONE (14:54)
--- NOTE | 2022-02-21 15:29 | RAD REPORT ---
EXAM DESCRIPTION: RAD - Lumbar Spine 3 Views - 02/21/2022 3:18 pm CLINICAL HISTORY: PAIN Radiculopathy COMPARISON: Spine Lumbar W obliques dated 10/31/2016; COCCYX dated 03/05/2015; LUMBAR SPINE 3 VIEWS da daniel 03/08/2011 FINDINGS: Vertebral body heights appear maintained. No compression fracture noted. Mild lower lumbar spondylosis. No spondylolysis or spondylolisthesis. Cholecystectomy clips. IMPRESSION: Mild lower lumbar spondylosis. No acute abnormality detected.
--- NOTE | 2022-02-21 16:06 | EDPHYS ---
Physician Documentation [facility] Name: Sheila Valentine Age: 71 yrs Sex: Female : 1950 Arrival Date: 02/21/2022 Time: 14:09 Bed 6 Private MD: ED Physician Miguel Martinez HPI: 02/21 15:00 This 71 yrs old Female presents to ER via Wheelchair with complaints of Foot en Pain. 15:00 71 yo F with chronic back pain 2/2 sciatica presents to ED with exacerbation of back en pain radiating to Right leg. Describes pain as burning and made her leg go out from under her. She did not fall to the ground. Someone caught her. No Bowel or bladder incontinence. . Historical: - Allergies: 14:30 Cipro; ll1 14:30 Codeine; ll1 14:30 Demerol; ll1 14:30 HYDROCODONE; ll1 14:30 Morphine; ll1 14:30 PENICILLINS; ll1 14:30 Sulfa (Sulfonamide Antibiotics); ll1 - Home Meds: 15:34 Indomethacin Oral [Active]; lisinopril 20 mg Oral tab 1 tab twice daily [Active]; jg9 meloxicam 7.5 mg Oral tab 1 tab twice a day [Active]; Oxybutynin Chloride Oral [Active]; pantoprazole 40 mg Oral TbEC 1 tab once daily [Active]; - PMHx: 14:30 Arthritis; BRADYCARDIA; CAD; chest pain; GERD; High Cholesterol; Hypertension; Kidney ll1 stones; Osteoporosis; Pancreatitis; Sleep Apnea; - Immunization history:: Adult Immunizations up to date. - Social history:: Smoking status: Patient denies any tobacco usage or history of. ROS: 15:00 Constitutional: Negative for fever, chills, and weight loss. en 15:00 Cardiovascular: Negative for chest pain. 15:00 Respiratory: Negative for cough, shortness of breath. 15:00 Abdomen/GI: Negative for abdominal pain, nausea, vomiting, and diarrhea. 15:00 : Negative for urinary symptoms, no incontinence. 15:00 MS/extremity: Positive for back pain. 15:00 Neuro: Negative for gait disturbance, headache, loss of consciousness, tingling, weakness. 15:00 All other systems are negative. Exam: 15:00 Constitutional: This is a well developed, well nourished patient who is awake, alert, en and in no acute distress. 15:00 Constitutional: The patient appears in no acute distress, alert, awake. 15:00 Cardiovascular: Rate: normal, Rhythm: regular, Pulses: no pulse deficits are appreciated, Heart sounds: normal, S1, S2, S3. 15:00 Respiratory: the patient does not display signs of respiratory distress, Respirations: no acute changes, is not noted, Breath sounds: no acute changes. 15:00 Abdomen/GI: Inspection: abdomen appears normal, Bowel sounds: normal, Palpation: abdomen is soft and non-tender. 15:00 Back: ROM is decreased, DROM 2/2 pain, right sided lumbar perispinal TTP. +SLR at 45 degrees, no foot drop. 5/5 PF/DF/EHL antalgic gait. 2+DP/PT pulses, normal sensation. . 15:00 Musculoskeletal/extremity: NVI. 15:00 Neuro: Orientation: appropriate for stated age, no acute changes, Deep tendon reflexes are 2+ (normal) in the right patellar and left patellar. Vital Signs: 14:32 BP 172 / 105; Pulse 64; Resp 18; Temp 97.9; Pulse Ox 98% on R/A; ph 15:30 BP 151 / 90; Pulse 60; Resp 16; Pulse Ox 94% on R/A; Pain 6/10; jg9 16:30 BP 169 / 93; Pulse 60; Resp 14 S; Pulse Ox 96% on R/A; jg9 MDM: 14:39 Patient medically screened. arin 15:00 Differential diagnosis: Lumbar strain, sciatica. Data reviewed: vital signs, nurses en notes, old medical records, and as a result, I will XR back and tx acute exacerbation. 16:03 ED course: Reviewed imaging with pt. No Fx. Will dc home with steroids and robaxin with en PCP f/u. 16:07 ED course: Pt also noted at time of discharge that she is having dysuria, but already en urinated. She reports h/o frequent UTIs. Will d/c home with omnicef. 02/21 14:39 Order name: Lumbar Spine (3 Views) XRAY; Complete Time: 16:03 en Administered Medications: 14:51 Not Given (Other Intervention Used): Decadron - Dexamethasone 10 mg IVP once jg9 14:52 Drug: Ketorolac 15 mg Route: IM; Site: right deltoid; jg9 15:30 Follow up: Response: No adverse reaction; Pain is decreased jg9 14:52 Drug: Robaxin (methocarbamol) 750 mg Route: PO; jg9 15:30 Follow up: Response: No adverse reaction; Pain is decreased jg9 14:52 Drug: Decadron (dexamethasone) 10 mg Route: IM; Site: left deltoid; jg9 15:30 Follow up: Response: No adverse reaction; Pain is decreased jg9 16:24 Not Given (not in Pixuss): Omnicef (cefdinir) 300 mg PO once en 16:27 Drug: KeFLEX (cephalexin) 500 mg Route: PO; jg9 16:33 Follow up: Response: No adverse reaction; Medication administered at discharge. jg9 Disposition Summary: 02/21/22 16:05 Discharge Ordered Location: Home en Condition: Fair en Diagnosis - Dysuria en - Sciatica en Followup: en - With: Andrews Garcia MD - When: As needed - Reason: Re-evaluation by your physician Discharge Instructions: - Discharge Summary Sheet en - Dysuria en - Sciatica en Forms: - Medication Reconciliation Form en - Thank You Letter en - Antibiotic Education en - Prescription Opioid Use en Prescriptions: - Prednisone 20 mg Oral Tablet - take 2 tablets by ORAL route once daily for 5 days; 10 tablet; Refills: 0, en Product Selection Permitted - cefdinir 300 mg Oral capsule - take 1 capsule by ORAL route every 12 hours for 10 days; 20 capsule; Refills: en 0, Product Selection Permitted - methocarbamol 500 mg Oral Tablet - take 2 tablets by ORAL route 4 times per day; 20 tablet; Refills: 0, Product en Selection Permitted Signatures: Dispatcher [employer] EDMiguel Hilton MD MD cha Lewis, Lynsay RN RN ll1 Gladys Simmons RN RN jg9 Elizabeth Colon PA PA en
--- NOTE | 2022-02-21 16:06 | ER ---
Nurse's Notes [facility] Name: Shelia Valentine Age: 71 yrs Sex: Female : 1950 Arrival Date: 02/21/2022 Time: 14:09 Bed 6 Private MD: Diagnosis: Dysuria;Sciatica Presentation: 02/21 14:32 Chief complaint: Patient states: R lower back pain that radiates down leg, reports that ph she fell in taoism d/t pain, denies injury r/t fall. Coronavirus screen: Vaccine status: Patient reports receiving the 2nd dose of the covid vaccine. Ebola Screen: No symptoms or risks identified at this time. Initial Sepsis Screen: Does the patient meet any 2 criteria? No. Patient's initial sepsis screen is negative. Does the patient have a suspected source of infection? No. Patient's initial sepsis screen is negative. Risk Assessment: Do you want to hurt yourself or someone else? Patient reports no desire to harm self or others. 14:32 Method Of Arrival: Wheelchair 14:32 Acuity: ADDI 4 ph 15:34 Onset of symptoms is unknown. jg9 Triage Assessment: 14:38 General: Appears in no apparent distress. uncomfortable, Behavior is anxious. Pain: ph Complains of pain in right low back Pain radiates to right leg. Neuro: Level of Consciousness is awake, alert, obeys commands, Oriented to person, place, time, situation. Derm: Skin is intact, is healthy with good turgor, Skin is pink, warm \T\ dry. Historical: - Allergies: 14:30 Cipro; ll1 14:30 Codeine; ll1 14:30 Demerol; ll1 14:30 HYDROCODONE; ll1 14:30 Morphine; ll1 14:30 PENICILLINS; ll1 14:30 Sulfa (Sulfonamide Antibiotics); ll1 - Home Meds: 15:34 Indomethacin Oral [Active]; lisinopril 20 mg Oral tab 1 tab twice daily [Active]; jg9 meloxicam 7.5 mg Oral tab 1 tab twice a day [Active]; Oxybutynin Chloride Oral [Active]; pantoprazole 40 mg Oral TbEC 1 tab once daily [Active]; - PMHx: 14:30 Arthritis; BRADYCARDIA; CAD; chest pain; GERD; High Cholesterol; Hypertension; Kidney ll1 stones; Osteoporosis; Pancreatitis; Sleep Apnea; - Immunization history:: Adult Immunizations up to date. - Social history:: Smoking status: Patient denies any tobacco usage or history of. Screenin:33 Abuse screen: Denies threats or abuse. Denies injuries from another. Nutritional jg9 screening: No deficits noted. Tuberculosis screening: No symptoms or risk factors identified. Fall Risk None identified. Assessment: 15:33 Reassessment: Patient and/or family updated on plan of care and expected duration. Pain jg9 level reassessed. Patient is alert, oriented x 3, equal unlabored respirations, skin warm/dry/pink. Patient reports slight improvement in pain-provider notified. Vital Signs: 14:32 BP 172 / 105; Pulse 64; Resp 18; Temp 97.9; Pulse Ox 98% on R/A; ph 15:30 BP 151 / 90; Pulse 60; Resp 16; Pulse Ox 94% on R/A; Pain 6/10; jg9 16:30 BP 169 / 93; Pulse 60; Resp 14 S; Pulse Ox 96% on R/A; jg9 ED Course: 14:09 Patient arrived in ED. rg4 14:25 Junior Ibrahim RN is Primary Nurse. ll1 14:25 Elizabeth Colon PA is PHCP. en 14:25 Arm band placed on Patient placed in an exam room, on a stretcher. ll1 14:37 Triage completed. ph 14:39 Miguel Martinez MD is Attending Physician. arin 15:19 Lumbar Spine (3 Views) XRAY In Process Unspecified. EDMS 15:34 Patient has correct armband on for positive identification. Bed in low position. Call jg9 light in reach. Side rails up X 1. 16:04 Andrews Garcia MD is Referral Physician. en 16:32 No provider procedures requiring assistance completed. jg9 16:32 Patient did not have IV access during this emergency room visit. jg9 Administered Medications: 14:51 Not Given (Other Intervention Used): Decadron - Dexamethasone 10 mg IVP once jg9 14:52 Drug: Ketorolac 15 mg Route: IM; Site: right deltoid; jg9 15:30 Follow up: Response: No adverse reaction; Pain is decreased jg9 14:52 Drug: Robaxin (methocarbamol) 750 mg Route: PO; jg9 15:30 Follow up: Response: No adverse reaction; Pain is decreased jg9 14:52 Drug: Decadron (dexamethasone) 10 mg Route: IM; Site: left deltoid; jg9 15:30 Follow up: Response: No adverse reaction; Pain is decreased jg9 16:24 Not Given (not in Pixuss): Omnicef (cefdinir) 300 mg PO once en 16:27 Drug: KeFLEX (cephalexin) 500 mg Route: PO; jg9 16:33 Follow up: Response: No adverse reaction; Medication administered at discharge. jg9 Medication: 15:34 VIS not applicable for this client. jg9 Outcome: 16:05 Discharge ordered by . en 16:32 Discharged to home via wheelchair. jg9 16:32 Condition: stable 16:32 Discharge instructions given to patient, Instructed on discharge instructions, follow up and referral plans. Demonstrated understanding of instructions, follow-up care, medications, Prescriptions given X 3. 16:34 Patient left the ED. jg9 Signatures: Dispatcher [employer] EDMS Miguel Martinez MD MD cha Hall, Patricia RN RN catalina Anthony, Ibeth [id number] Junior Ibrahim RN RN ll1 Gladys Simmons RN RN jg9 Elizabeth Colon PA PA en
[2022-02-21] MEDS ORDERED: CEPHALEXIN 250 MG CAP ONE (16:32)
[2022-02-21 16:41] VITALS: TEMP 97.9
[2022-02-21 16:44] VITALS: BP 169/93; O2SAT 96
== END 2022-02-21 16:34 | disposition home or self-care (01) ==
LOC: ER 14:07
DX: R30.0 Dysuria (principal); M54.30 Sciatica, unspecified side; Z88.1 Allergy status to other antibiotic agents; Z88.0 Allergy status to penicillin; Z88.6 Allergy status to analgesic agent; E78.00 Pure hypercholesterolemia, unspecified; I10 Essential (primary) hypertension; K21.9 Gastro-esophageal reflux disease without esophagitis; I25.10 Atherosclerotic heart disease of native coronary artery without angina pectoris; R00.1 Bradycardia, unspecified
CPT/HCPCS: 72100; 96372; 99283; J1100

== ENCOUNTER 2022-09-12 02:39 | Emergency (ER) | payer OTHER ==
--- OUTSIDE RECORDS SUMMARY | 2022-09-12 02:44 | XMS REPORT | Continuity of Care Document ---
:1950 Author Organization [facility] t Address [address] [place] [address] Care Team Providers Name Role Phone Pcp, Patient Does Not Have A Primary Care Physician [id number] JOSE ANGEL LOZA Attending Clinician Unavailable KERRI PINA Attending Clinician Unavailable Doctor Unassigned, [place] Attending Clinician Unavailable GIULIA GROSS Attending Clinician Unavailable SHREYAS GARSIA Attending Clinician Unavailable CORNELIUS ROSE Attending Clinician Unavailable Anabela Brooks Attending Clinician Margaret Gould Attending Clinician GIULIA GROSS Admitting Clinician Unavailable Payers Payer Name Policy Type Policy Number Effective Date Expiration Date Navid thomason [facility] WELLMED [id number] 2021 00:00:00 [place]ICAID [place] [id number] 2018 00:00:00 [employer] [id number] 2019 MEDICARE ADVANTAGE 00:00:00 MEDICARE PART A [id number] 2015 \\T\\ B 00:00:00 Problems Condition Condition Condition Status Onset Resolution Last Treating Co mments Source Name Details Category Date Date Treatment Clinician Date No known No known Disease Unive rs active active ity of problems problems [facility] Allergies, Adverse Reactions, Alerts Allergy Allergy Status Severity Reaction(s) Onset Inactive Treating Comm ents Source Name Type Date Date Clinician ONDANSET DRUG Active ITCHING 2017-09 Univers TEDDY HCL 0-05 ity of (PF) 00:00: [place] 00 Medical Branch Ondanset Propensi Active Itching 2017-09 Reaction Uni vers teddy Hcl ty to 0-05 occurred ity of (Pf) adverse 00:00: in the [place] reaction 00 ER. Medical s Branch CEPHALEX DRUG Active NAUSEA ONLY [...] 00:00: [place] ANTIBIOT 00 Medical ICS) Branch Sulfa Propensi Active Nausea Only 2006-09 Uni vers (Sulfona ty to 2-27 ity of mide adverse 00:00: [place] Antibiot reaction 00 Medica l ics) s Branch Cephalex Propensi Active Nausea Only 2006-09 [...] 00:00: [place] reaction 00 Medical s Branch Hydroxyz Propensi Active Nausea Only 2006-09 U nivers ine ty to 2-27 ity of adverse 00:00: [place] reaction [facility] Ibuprofe Propensi Active Nausea Only 2006-09 U nivers n ty to 2 ity of adverse 00:00: [place] reaction 00 [facility] Sulfa Propensi Active Nausea Only 2006-09 Uni vers (Sulfona ty to 11-15 ity of mide adverse 00:00: [place] Antibiot reaction 00 Medica l ics) [facility] Social History Social Habit Start Date Stop Date Quantity Comments Source History of Current smoker University of tobacco use [facility] Exposure to Not sure [facility] SARS-CoV-2 [facility] (event) [place] Tobacco use and 2020-10-10 2020-10-10 Never used Universit y of exposure 00:00:00 00:00:00 [facility] Alcohol intake 2020-10-10 2020-10-10 0 /d University of 00:00:00 00:00:00 [facility] Sex Assigned At [birth year] Universit y of 00:00:00 00:00:00 [facility] Smoking Status Start Date Stop Date Source Ex-smoker 2020-10-10 00:00:00 2020-10-10 00:00:00 [facility] Medications Ordered Filled Start Stop Current [...] approving Restricted medication : EMERGENCY ROOM, methocarbam 2020- No 500mg 500 mg, U nivers oL 10-10 Oral, ONCE ity of (ROBAXIN) 23:00: 23:03 NOW, 1 [place] tablet 500 00 :00 dose, Fri Medi shahla mg 10/10/20 at Branch 1700, PALU methocarbam Yes [id number] 750mg Take 1 Univers oL 750 mg 10-10 tablet by ity o f tablet 00:00: mouth 3 00 (three) Medical times Branch daily as needed (muscle pain). methocarbam 2020-0 Yes [id number] 750mg Take 1 Univers oL 750 mg 1-22 tablet by ity o f tablet 00:00: mouth 3 00 (three) Medical times Branch daily as needed (muscle pain). methocarbam 2020-0 Yes [id number] 750mg Take 1 Univers oL 750 mg 1-22 tablet by ity o f tablet 00:00: mouth 3 00 (three) Medical times Branch daily as needed (muscle pain). albuterol 2019- 2020- No 2{puff} 2 Puff, U nivers (VENTOLIN) 05-16 Inhalation it y of inhaler 2 07:15: 06:12 [place] :[place] dose, Fri Medical 05/16/20 at Branch 0215, PAUL
Is this order for a patient with suspected or confirmed COVID-19 infection? No
Does this order have Pulmonary/ Critical Care approval? Yes cloNIDine 2019-0 2020- No .1mg 0.1 mg, Univ ers (CATAPRES) 05-16 Oral, ity of tablet 0.1 06:00: 05:13 ONCE, 1 [place] as mg 00 :00 dose, Fri Medical 05/16/20 at Branch 0100, STAT albuterol 2019-0 Yes [id number] 2{puff} Inhale 2 Univers 90 8-28 Puffs ity of mcg/actuati 00:00: every 4 [place] as on inhaler 00 (four) Medical hours as Branch needed for Wheezing or Shortness of Breath. albuterol 2019-0 Yes [id number] 2{puff} Inhale 2 Univers 90 8-28 Puffs ity of mcg/actuati 00:00: every 4 Yifan as on inhaler 00 (four) Medical hours as Branch needed for Wheezing or Shortness of Breath. albuterol 2020-0 Yes [id number] 2{puff} Inhale 2 Univers 90 8-28 Puffs ity of mcg/actuati 00:00: every 4 Yifan as on inhaler 00 (four) Medical hours as Branch needed for Wheezing or Shortness of Breath. albuterol 2019-0 Yes [id number] 2{puff} Inhale 2 Univers 90 8-28 Puffs [...] as needed for Pain (scale 4-6). proMETHazin Yes 25mg Insert 1 Un michele e [...] Use 1 Un michele (FLONASE) 1-01 } [place] in ity of 50 15:14: each [place] mcg/actuati 28 nostril Medic al on nasal daily. Branch spray Indication s: 1 [place] each Nostril BID traZODONE 2015-09 Yes 50mg Take 50 mg Un michele (DESYREL) 1-01 by mouth ity of 50 mg 15:14: at [place] tablet 28 bedtime. Medical Branch fluticasone 2015-09 Yes 1{spray Use 1 Un michele (FLONASE) 1- } [place] in ity of 50 15:14: each [place] mcg/actuati 28 nostril Medic al on nasal daily. Branch spray Indication s: 1 [place] each Nostril BID traZODONE 2015-09 Yes 50mg Take 50 mg Un michele (DESYREL) 1-01 by mouth ity of 50 mg 15:14: at [place] tablet 28 bedtime. Medical Branch fluticasone 2015-09 Yes 1{spray Use 1 Un michele (FLONASE) 1-01 } [place] in ity of 50 15:14: each [place] mcg/actuati 28 nostril Medic al on nasal daily. Branch spray Indication s: 1 [place] each Nostril BID traZODONE 2015-09 Yes 50mg Take 50 mg Un michele (DESYREL) 1-01 by mouth ity of 50 mg 15:14: at [place] tablet 28 bedtime. Medical Branch omeprazole 2015-09 Yes 40mg Take 40 mg U nivers (PRILOSEC) 09-19 by mouth ity o f 40 mg 15:14: daily. [place] [address] Medical Branch omeprazole 2015-09 Yes 40mg Take 40 mg U nivers (PRILOSEC) 09-19 by mouth ity o f 40 mg 15:14: daily. [place] [address] Medical Branch omeprazole 2015-09 Yes 40mg Take 40 mg U nivers (PRILOSEC) 09-19 by mouth ity o f 40 mg 15:14: daily. [place] [address] Medical Branch fluticasone 2015-09 Yes 1{spray Use 1 Un michele (FLONASE) 09-19 } [place] in ity of 50 10:14: each [place] mcg/actuati 28 nostril Medic al on nasal daily. Branch spray Indication s: 1 [place] each Nostril BID traZODONE 2015-09 Yes 50mg Take 50 mg Un michele (DESYREL) 09-19 by mouth ity of 50 mg 10:14: at [place] tablet 28 bedtime. Medical Branch omeprazole 2015-09 Yes 40mg Take 40 mg U nivers (PRILOSEC) 09-19 by mouth ity o f 40 mg 10:14: daily. [address] Branch lisinopril 2015-09 Yes 20mg Take 1 [...] Immunizations Ordered Filled Immunization Date Status Comments Sour e Immunization Name Name SARS-COV-2 COVID-19 2021-02-07 Completed Unive rsity of PFIZER VACCINE 00:00:00 [facility] SARS-COV-2 COVID-19 2021-02-07 Completed Unive rsity of PFIZER VACCINE 00:00:00 [facility] SARS-COV-2 COVID-19 2021-01-10 Completed Unive rsity of PFIZER VACCINE 00:00:00 [facility] SARS-COV-2 COVID-19 2021-01-10 Completed Unive rsity of PFIZER VACCINE 00:00:00 [facility] Vital Signs Vital Name Observation Time Observation Value Comments Source Systolic blood 2020-10-11 00:00:00 106 mm[Hg] Univer sity of pressure [facility] Diastolic blood 2020-10-11 00:00:00 74 mm[Hg] Unive rsity of [facility] Heart rate 2020-10-11 00:00:00 63 /min [facility] Respiratory rate 2020-10-11 00:00:00 16 /min [facility] O[facility] saturation in 2020-10-11 00:00:00 98 /min [facility] Arterial blood by [facility] Pulse oximetry [place] Body temperature 2020-10-10 21:35:00 37.11 Luisa [facility] Body height 2020-10-10 21:35:00 157.5 cm [facility] Body weight 2020-10-10 21:35:00 77.111 kg [facility] BMI 2020-10-10 21:35:00 31.09 kg/m2 [facility] Systolic blood 2020-10-11 00:00:00 106 mm[Hg] Univer sity of pressure [facility] Diastolic blood 2020-10-11 00:00:00 74 mm[Hg] Unive rsity of pressure [facility] Heart rate 2020-10-11 00:00:00 63 /min [facility] Respiratory rate 2020-10-11 00:00:00 16 /min [facility] O[facility] saturation in 2020-10-11 00:00:00 98 /min University of Arterial blood by [facility] Pulse oximetry Branch Body temperature 2020-10-10 21:35:00 37.11 Luisa [facility] Body height 2020-10-10 21:35:00 157.5 cm [facility] Body weight 2020-10-10 21:35:00 77.111 kg [facility] BMI 2020-10-10 21:35:00 31.09 kg/m2 [facility] Systolic blood 2020-05-16 06:00:00 163 mm[Hg] Univer sity of [facility] Diastolic blood 2020-05-16 06:00:00 74 mm[Hg] Unive rsity of [facility] Heart rate 2020-05-16 06:00:00 64 /min [facility] Respiratory rate 2020-05-16 06:00:00 20 /min [facility] Oxygen saturation in 2020-05-16 06:00:00 98 /min University of Arterial blood by [facility] Pulse oximetry Branch Body temperature 2020-05-16 02:44:00 37.22 Luisa [facility] Body height 2020-05-16 02:44:00 152.4 cm [facility] Body weight 2020-05-16 02:44:00 77.111 kg [facility] BMI 2020-05-16 02:44:00 33.20 kg/m2 [facility] [place] [facility] Systolic blood 2020-05-16 06:00:00 163 mm[Hg] Univer sity of [facility] Diastolic blood 2020-05-16 06:00:00 74 mm[Hg] Unive rsity of [facility] Heart rate 2020-05-16 06:00:00 64 /min [facility] Respiratory rate 2020-05-16 06:00:00 20 /min [facility] Oxygen saturation in 2020-05-16 06:00:00 98 /min University of Arterial blood by [facility] Pulse oximetry Branch Body temperature 2020-05-16 02:44:00 37.22 Luisa [facility] [place] [facility] Body height 2020-05-16 02:44:00 152.4 cm [facility]i [facility] [place] [facility] Body weight 2020-05-16 02:44:00 77.111 kg [facility] BMI 2020-05-16 02:44:00 33.20 kg/m2 [facility] Procedures Procedure Date / Time Performed Performing Clinician [facility] e REFERRAL- 2022-09-02 06:01:00 Doctor Unassigned, No [facility] REQUEST/RESPONSE Name Medical Branch EXTERNAL PROVIDER - 2021-03-20 05:01:00 [facility] Name Medical Branch LIPASE 2020-10-10 23:18[facility] 2020-10-10 23:18[facility]00 [id number] [place] (ALB,T.PRO,BILI T,BU/BC,ALT,AST,ALK PHOS) BASIC METABOLIC PANEL 2020-10-10 23:18:00 [facility] (NA, K, CL, CO2, Medical Branch GLUCOSE, BUN, CREATININE, CA) CBC WITH DIFF 2020-10-10 23:18:00 [facility] 2020-10-10 23:04:[address] [facility] [address] ABDOMEN PELVIS WO 2020-10-10 22:23:01 [place], Anabela [facility] NOTICE OF PRIVACY 2020-10-10 21:29:06 Doctor Unassigned, No [facility] PRACTICES Name Medical Branch CONSENT/REFUSAL FOR 2020-10-10 21:28:36 Doctor Unassigned, No [facility] DI[facility] AND Name Medical Branch TREATMENT EKG-12 LEAD 2020-05-16 05:28:45 Margaret Pemberton [facility] LIPASE 2020-05-16 04:35:00 Margaret Pemberton [facility] TROPONIN I 2020-05-16 04:35:00 Margaret Pemberton [facility] COMP. METABOLIC PANEL 2020-05-16 04:35:00 Margaret Pemberton [facility] ([id number]) Medical Branch CBC WITH DIFF 2020-05-16 04:35:00 Margaret Pemberton [facility] COVID-19 (ID NOW RAPID 2020-05-16 04:35:00 Margaret Pemberton [facility] TESTING) Medical Branch XR CHEST 1 VW 2020-05-16 04:16:00 Margaret Pemberton [facility] URINALYSIS 2020-05-16 03:08:00 Shreyas Mota [facility] NOTICE OF PRIVACY 2020-05-16 02:35:16 Doctor Unassigned, No Univ [facility] PRACTICES Name Medical Branch CONSENT/REFUSAL FOR 2020-05-16 02:34:46 Doctor Unassigned, No [facility] DIAGNOSIS AND Name Medical Branch TREATMENT Encounters Start End Encounter Admission Attending Care Care Encounter Source Date/Time Date/Time Type Type Clinicians Facility Department ID 2022-08-31 Outpatient [facility] [id number] [place] 07:51:11 [id number] [facility] 2022-08-10 Outpatient [facility] [id number] [place] 10:50:36 [id number] [facility] 2022-04-14 [facility] [id number] [place] 07:54:13 JOSE ANGEL [id number] [facility] 2022-04-13 [facility] [id number] [place] 10:22:44 JOSE ANGEL [id number] [facility] 2022-03-24 Outpatient [facility] [id number] [place] 15:48:13 [id number] [facility] 2022-02-24 Outpatient [facility] [id number] [place] 15:21:43 [id number] [facility] 2022-02-23 Outpatient OKPALA, [facility] [id number] [place] 12:34:09 WILIAMALISSA [id number] [facility] 2021-07-18 Emergency [facility] [id number] Univers 18:58:18 [facility] 2021-07-17 Emergency [facility] [id number] Univers 14:37:11 [facility] 2022-09-29 2022-09-29 Outpatient Emeka PINA [facility] [id number] Univers 09:30:00 09:30:00 KERRI [facility] 2022-09-27 2022-09-27 Outpatient R YOVANI, [facility] [id number] Univers 11:00:00 11:00:00 KERRI steinberg [facility] 2022-09-02 2022-09-02 Orders Doctor HILDA [id number] Univers 00:00:00 00:00:00 Only Unassigned, HILARY [id number] ity of [place] [facility] 4.2.7.2.686 Yifan as [id number] [address] 2022-09-01 2022-09-01 Outpatient [facility], [facility] [id number] [place] 11:00:00 11:00:00 [facility] 2022-08-17 2022-08-17 Outpatient [facility] [id number] [place] 11:30:00 11:30:00 [facility] 2022-07-06 2022-07-06 Outpatient SFA SFA [id number] Kelvin 09:27:36 09:27:36 [id number] F Mio 2022-02-28 2022-03-30 Inpatient GINNY, [facility] [id number] [facility] 17:05:00 15:15:00 GIULIA 2021-05-22 2021-05-22 Outpatient Emeka GARSIA, [facility] [id number] Univers 15:40:00 15:40:00 SHREYAS reddy [facility] 2021-05-07 2021-05-07 Outpatient Emeka GARSIA, [facility] [id number] Univers 10:00:00 10:00:00 SHREYAS reddy [facility] 2021-03-20 2021-03-20 Orders Doctor HILDA [id number] Univers 00:00:00 00:00:00 Only Unassigned, HILARY 350.1.13.10 ity of [place] [facility] 4.2.7.2.686 Yifan as [id number] [address] 2021-03-20 2021-03-20 Orders Doctor HILDA [id number] 00:00:00 00:00:00 Only Unassigned, HILARY 350.1.13.10 [place] [facility] 4.2.7.2.686 [id number] [facility] 2021-02-07 2021-02-07 Outpatient R [facility] [id number] Univers 09:15:00 [facility]15[facility] 2021-01-10 2021-01-10 Outpatient R MILTON, [facility] [id number] Univers 09:30:00 09:30:00 CORNELIUS [facility] 2020-10-10 2020-10-10 Emergency [facility] [id number] Univers 15:39:00 18:33:00 Anabela [place] 350.1.13.10 i ty of [employer] 4.2.7.2.686 [facility] [id number] [address] 2020-10-10 2020-10-10 Emergency [facility] [id number] 15:39:00 18:33:00 Anabela [place] 350.1.13.10 [employer] 4.2.7.2.686 [place] [id number] 2020-05-15 2020-05-16 Emergency [facility] [id number] Univers 21:47:00 01:20:00 Margaret S [place] 350.1.13.10 i ty of [employer] 4.2.7.2.686 [facility] [id number] [address] 2020-05-15 2020-05-16 Emergency [facility] [id number] 21:47:00 01:20:00 Margaret S [place] 350.1.13.10 [employer] 4.2.7.2.686 [place] [id number] Results Test Description Test Time Test Comments Results Result Comments Source CULTURE, URINE 2022-07-03 SPECIMEN NUMBER: 13:54:04 [id number] CULTURE, URINE SPECIMEN NUMBER: [id number] SPECIMEN COMMENT: URINE SOURCE: URINE REPORT STATUS: FINAL ISOLATE NUMBER 1: ORGANISM: 07/02/2022 >100,000 CFU/ML GRAM NEGATIVE BACILLI IDENTIFICATION: 07/03/2022 ESCHERICHIA COLI E. COLI AMOX ICILLIN/CA INTERMED 16/8AMPICILLIN RESISTANT >16CEFAZOLIN SENSITIVE 8CEFTRIAXONE SENSITIVE <=1CIPROFLOXACIN SENSITIVE <=1LEVOFLOXACIN SENSITIVE <=2NITROFURANTOIN SENSITIVE <=32PIP/TAZOBAC SENSITIVE <=16TETRACYCLINE RESISTANT >8TOBRAMYCIN SENSITIVE <=4TRIMETH/SULFA RESISTANT >2/38 NOTE: NUMBERS DISPLAYED REPRESENT MINIMUM INHIBITORY CONCENTRATION (JEFF) WHICH IS EXPRESSED IN MCG/ML. UNLESS OTHERWISE INDICATED, ALL TESTING PERFORMED [employer] [address] [place], [place] [address] RETAIL ASSISTANT: LIZZY GREENWOOD M.D. CLIA NUMBER [id number] [place] [id number] CULTURE, URINE 2022-05-01 SPECIMEN NUMBER: 11:37:05 [id number] CULTURE, URINE SPECIMEN NUMBER: [id number] SPECIMEN COMMENT: URINE SOURCE: URINE REPORT STATUS: FINAL ISOLATE NUMBER 1: ORGANISM: 04/30/2022 >100,000 CFU/ML GRAM NEGATIVE BACILLI IDENTIFICATION: 05/01/2022 ESCHERICHIA COLI E. COLI AMOX ICILLIN/CA INTERMED 16/8AMPICILLIN RESISTANT >16CEFAZOLIN SENSITIVE <=2CEFTRIAXONE SENSITIVE <=1CIPROFLOXACIN SENSITIVE <=1LEVOFLOXACIN SENSITIVE <=2NITROFURANTOIN SENSITIVE <=32PIP/TAZOBAC SENSITIVE <=16TETRACYCLINE RESISTANT >8TOBRAMYCIN SENSITIVE <=4TRIMETH/SULFA RESISTANT >2/38 NOTE: NUMBERS DISPLAYED REPRESENT MINIMUM INHIBITORY CONCENTRATION (JEFF) WHICH IS EXPRESSED IN MCG/ML. UNLESS OTHERWISE INDICATED, ALL TESTING PERFORMED [employer] [address] [place] [address] RETAIL ASSISTANT: LIZZY GREENWOOD M.D. CLIA NUMBER [id number] [place]. [id number] Hepatic Function Panel (ALB, T.PRO, BILI T, BU/BC, ALT , AST, 2020-10-10 23:54:00 ALK PHOS) Test Item Value Reference Range Interpretation Comme nts TOTAL BILI (test code = 4704078778) 0.5 mg/dL 0.1-1.1 BILI UNCON (test code = 2450198726) 0.4 mg/dL 0.1-1.1 BILI CONJ (test code = 4036653501) 0.0 mg/dL 0-0.3 T PROTEIN (test code = 7503648522) 8.3 g/dL 6.3-8.2 H ALBUMIN (test code = 0597134130) 4.5 g/dL 3.5-5 ALK PHOS (test code = 6071816641) 86 U/L 34-122 ALTv (test code = 1742-6) 17 U/L 5-35 AST(SGOT) (test code = 7688600055) 31 U/L 13-40 Lab Interpretation (test code = 70495-2) Abnormal [facility] [id number] 23:54:00 Test Item Value Reference Range Interpretation Comments LIPASE (test code = 3748393708) 60 U/L 0-220 Lab Interpretation (test code = Normal 32132-3) [facility] Met[facility] (NA, K, CL, CO2, GLUCOSE, BUN, CREATININE, CA)2020-10-10 23:54:00 Test Item Value Reference Range Interpretation Comments NA (test code = 140 mmol/L 135-145 6223114171) K (test code = 4.7 mmol/L 3.5-5 5499444417) CL (test code = 104 mmol/L 98-108 1615627492) CO2 TOTAL (test code = 28 mmol/L 23-31 2260529022) AGAP (test code = 2-16 8122667859) BUN (test code = 17 mg/dL 7-23 9238134226) GLUCOSE (test code = 92 mg/dL 70-110 9590281924) CREATININE (test code 0.81 mg/dL 0.5-1.04 = 6384925623) CALCIUM (test code = 9.3 mg/dL 8.6-10.6 9891648214) eGFR Calculation mL/min/1.73m2 (Non-) (test code = 2568829267) eGFR Calculation mL/min/1.73m2 () (test code = 9555586845) JOHN (test code = JOHN) Association of [...] [facility]22 23:41:00 Test Item Value Reference Range Interpretation Comments APPEARANCE (test code = Hazy Clear A 5197261986) COLOR (test code = Yellow Yellow 9793407398) PH (test code = 4.8-8.0 2138548960) SP GRAVITY (test code = 1.003-1.030 6439719151) GLU U QUAL (test code = Normal Normal 3577917752) BLOOD (test code = Negative Negative INTERFERE NCE FROM 8669034170) ASCORBIC ACID M AY CAUSE FALSE NEG ATIVE RESULT KETONES (test code = Negative Negative 0815912080) PROTEIN (test code = Negative Negative 2887-8) UROBILIN (test code = Normal Normal 1975045110) BILIRUBIN (test code = Negative Negative 4241916012) NITRITE (test code = Negative Negative 9092357417) LEUK NESS (test code = 250/uL Negative A 3287010008) RBC/HPF (test code = See_Comment [Autom ated message] 4824430638) The system [employer] generated this result transmitted ref erence range: 0 - 3 HP F. The reference range was not used to int erpret this result as normal/abnormal . WBC/HPF (test code = See_Comment [Autom ated message] 2124671594) The system [employer] generated this result transmitted ref erence range: 0 - 5 HP F. The reference range was not used to int erpret this result as normal/abnormal . BACTERIA (test code = Negative Negative 6435100819) MUCOUS (test code = Slight Negative LPF A 6707125042) SQ EPITH (test code = HPF 5858270622) Lab Interpretation (test Abnormal code = 17857-1) [facility] with [id number] 23:36:00 Test Item Value Reference Range Interpretation Comments WBC (test code = See_Comment [Automated 0490-2) message] The sy stem which generated this result transmitted reference range : 4.30 - 11.10 10*3/?L. The reference range was not used to interpret this result as normal/abnormal . RBC (test code = See_Comment [Automated 159-8) message] The sy stem which generated this [...] RDW-SD (test code = 46.5 fL 39-49.9 83466-1) RDW-CV (test code = 14.4 % 12-15.5 788-0) PLT (test code = See_Comment [Automated 777-3) message] The sy stem which generated this result transmitted reference range : 166 - 358 10*3/ ?L. The reference r susan was not used to interpret this result as normal/abnormal . MPV (test code = 9.5 fL 9.5-12.9 14423-8) NRBC/100 WBC (test See_Comment [Automat ed code = 3241968933) message] The system which generated this result transmitted reference range : 0.0 - 10.0 /100 WBCs. The refer ence range was not u sed to interpret th is result as normal/abnormal . NRBC x10^3 (test code <0.01 See_Comment [Auto mated = 1399621397) message] The s ystem which generated this result transmitted reference range : 10*3/?L. The reference range was not used to interpret this result as normal/abnormal . GRAN MAT (NEUT) % 53.6 % (test code = 770-8) IMM GRAN % (test code 0.20 % = 7389976925) LYMPH % (test code = 36.6 % 736-9) MONO % (test code = 8.6 % 5905-5) EOS % (test code = 0.7 % 713-8) BASO % (test code = 0.3 % 706-2) GRAN MAT x10^3(ANC) 3.16 10*3/uL 1.88-7.09 (test code = 5984924015) IMM GRAN x10^3 (test <0.03 0-0.06 code = 6313942768) LYMPH x10^3 (test code 2.16 10*3/uL 1.32-3.29 = 731-0) MONO x10^3 (test code 0.51 10*3/uL 0.33-0.92 = 742-7) EOS x10^3 (test code = 0.04 10*3/uL 0.03-0.39 711-2) BASO x10^3 (test code <0.03 0.01-0.07 = 704-7) Lab Interpretation Abnormal (test code = 36469-7) [facility]O [id number] 23:05:431. ?Interval enlargement of cystic lesion within the medial segment 7 [id number]. Central fluid attenuation suggests a simple cyst. Considerconfirmation with multiphasic CT or MRI given interval growth.2. ?Status post cholecystectomy. 3. ?Punctate bilateral nonobstructive nephrolithiasis. 4. ?Left adrenal benign adenoma. 5. ?Left ovarian 1.7 cm cyst. Attention on follow- up in 6 weeks. 6. ?Scarring inthe ventral abdominal wall and small fat- containingumbilical hernia.CT abdomen and pelvis without contrast REASON FOR STUDY: Flank pain, stone disease suspected Nausea, vomiting COMPARISON: 06/23/2022 TECHNIQUE: Unenhanced multidetector axial CT images from lung bases throughpelvic inlet. As requested,no IV contrast was used. Coronal and sagittalMPR [...] 2018. No other focal hepatic lesions identified. Nor mal hepaticsurface contour. Biliary Tract/GB: Status post cholecystectomy. Spleen: No splenomegaly. Subcentimeter splenule along the superior marginof the spleen. Pancreas: No pancreatic ductal dilatation. Adrenals: 1.0 cm left adrenal nodule with attenuation consistent withbenign lipid rich adenoma (4-6 Hounsfield units). Kidneys: There are 4-5 bilateral [...] multidetector axial CT images from lung bases throughpelvicinlet. As requested, no IV contrast was used. Coronal and sagittalMPR images also generated.INTRAVENO US CONTRAST ADMINISTRATION: None.DOSE REPORT (Total DLP mGy*cm): 383.FINDINGS: Lower chest: Clear lung bases. Partially visualized AICD lead tipsterminating in the right ventricle and right atrium.ABDOMEN AND PELVISLiver: Liver does not appear overtly cirrhotic. Medial segment 7 2.9 cmhypoattenuating lesion with central fluid attenuation, previously 2.4 cm onCT from 2018. No other focal hepatic lesions identified. Normal hepaticsurface contour.Biliary Tract/GB: Status post cholecystectomy.Spleen: Nosplenomegaly. Subcentimeter splenule along the superior marginof the spleen.Pancreas: No pancreatic ductal dilatation.Adrenals: 1.0 cm left adrenal nodule with attenuation consistent withbenign lipid rich adenoma (4-6 Hounsfield units).Kidneys: There are 4-5 bilateral punctate nonobstructive calculi. Nohydronephrosis or contour deforming renal mass. Overall appearance issimilar to prior exam. No hydroureter.Bowel: Tiny sliding-type hiatal hernia with mild distal esophagealthickening. Mild pancolonicdiverticulosis without diverticulitis. Normalappendix. Small bowel appears unremarkable. No abnormalbowel dilatation orwall thickening.Peritoneum: No pneumoperitoneum or free fluid.Vasculature: Mild atherosclerotic calcifications in the infrarenalabdominal aorta.Lymph Nodes: No lymphadenopathy. Pelvic Organs: Left ovarian 1.7 cm cystic lesion with central fluidattenuation. Right ovary is not well distinguished from the adjacentviscera. Uterus is normal. Urinary bladder is decompressed. No urinarybladder calculi.Abdominal/Pelvic Wall: Redemonstration of scarring within the theinfraumbilical ventralabdominal wall, similar to minimally more prominentwhen comparing to prior exam from 2018. Tiny fat-containing umbilicalhernia is visualized on 6:65 (with fascial defect measuring 1.5 cm intransverse di mension), similar prior. Subcentimeter calcified granuloma within the subcutaneous tissuessuperficial to the right greater trochanter.BONES: No acute or aggressive osseous abnormality. Slightly increasedsclerosis at the inferior left SI joint without appreciable joint erosion(4:65). No aggressive feature identified.IMPRESSION1. Interval enlargement of cystic lesion within the medial segment 7 [id number]. Central fluid attenuation suggests a simple cyst. Considerconfirmation with multiphasic CT or MRIgiven interval growth. 2. Status post cholecystectomy.3. Punctate bilateral nonobstructive nephrolithiasis.4. Left adrenal benign adenoma.5. Left ovarian 1.7 cm cyst. Attention on follow-up in 6 weeks.6. Scarring in the ventral abdominal wall and small fat- containingumbilical hernia.[facility] 2020-05-16 05:48:00 Test Item Value Reference Range Interpretation Comments TROPONIN I (test 0.029 ng/mL See_Comment [Automated code = 3055892935) message] The system which generated this result [...] ? Lab Interpretation Normal (test code = 97829-2) [facility] CHEST 1 [id number] 05:11:31 No acute cardiopulmonary abnormality. Preliminary Report [...] normal in size. The aortic knob is calcified. No acute osseous abnormality. [facility], Radiant Results Inft 05/16/2020 12:12 AM CDTEXAM: XR CHEST 1 VWCLINICAL INDICATION: cough, [...] this study and agree withthe above report. [facility]. METABOLIC PANEL ([id number])2020-05-16 05:05:00 Test Item Value Reference Range Interpretation Comments NA (test code = 140 mmol/L 135-145 3165773087) K (test code = 4.6 mmol/L 3.5-5 6094413729) CL (test code = 108 mmol/L 98-108 4489476382) CO2 TOTAL (test code = 29 mmol/L 23-31 9961621614) AGAP (test code = 2-16 0235146841) BUN (test code = 18 mg/dL 7-23 8385918734) GLUCOSE (test code = 108 mg/dL 70-110 1803663008) CREATININE (test code = 0.92 mg/dL 0.5-1.04 2187865759) TOTAL BILI (test code = 0.4 mg/dL 0.1-1.8 0721898787) CALCIUM (test code = 9.3 mg/dL 8.6-10.6 8400056824) T PROTEIN (test code = 8.1 g/dL 6.3-8.2 2180398657) ALBUMIN (test code = 4.2 g/dL 3.5-5 0055229946) ALK PHOS (test code = 71 U/L 34-122 0689687319) ALTv (test code = 20 U/L 5-35 1742-6) AST(SGOT) (test code = 50 U/L 13-40 H 7534450155) eGFR Calculation mL/min/1.73m2 (Non-) (test code = 6815727361) eGFR Calculation mL/min/1.73m2 () (test code = 3286948106) JOHN (test code = JOHN) Association of [...] tests). Lab Interpretation Abnormal (test code = 59841-4) [facility]2020-08-28 05:04:00 Test Item Value Reference Range Interpretation Comments LIPASE (test code = 8959210794) 48 U/L 0-220 Lab Interpretation (test code = Normal 91901-8) [facility]OVID-[facility] (ID NOW RAPID TESTING)2020-05-16 05:01:00 Test Item Value Reference Range Interpretation Comments SARS-CoV-2 Rapid ID NOW Not Detected Not Detected (test code = 23045-3) JOHN (test code = JOHN) ID NOW COVID-19 Assay is an isothermal nucleic acid amplification test intended for the qualitative detection of nucleic acid from SARS-CoV-2 viral RNA in nasopharyngeal (PRODUCTION ENGINEER TRACK) specimens. It is used under Emergency Use [...] indicated. Lab Interpretation Normal (test code = 26429-2) [facility] WITH [id number] 04:46:00 Test Item Value Reference Range Interpretation Comments WBC (test code = See_Comment [Automated 4871-2) message] The sy stem which generated this result transmitted reference range : 4.30 - 11.10 10*3/?L. The reference range was not used to interpret this result as normal/abnormal . RBC (test code = See_Comment [Automated 711-1) message] The sy stem which generated this [...] RDW-SD (test code = 49.1 fL 39-49.9 17436-6) RDW-CV (test code = 15.1 % 12-15.5 788-0) PLT (test code = See_Comment [Automated 777-3) message] The sy stem which generated this result transmitted reference range : 166 - 358 10*3/ ?L. The reference r susan was not used to interpret this result as normal/abnormal . MPV (test code = 9.8 fL 9.5-12.9 95376-2) NRBC/100 WBC (test See_Comment [Automat ed code = 1422976737) message] The system which generated this result transmitted reference range : 0.0 - 10.0 /100 WBCs. The refer ence range was not u sed to interpret th is result as normal/abnormal . NRBC x10^3 (test code <0.01 See_Comment [Auto mated = 7220785954) message] The s ystem which generated this result transmitted reference range : 10*3/?L. The reference range was not used to interpret this result as normal/abnormal . GRAN MAT (NEUT) % 50.8 % (test code = 770-8) IMM GRAN % (test code 0.40 % = 4437899969) LYMPH % (test code = 39.1 % 736-9) MONO % (test code = 7.7 % 5905-5) EOS % (test code = 1.6 % 713-8) BASO % (test code = 0.4 % 706-2) GRAN MAT x10^3(ANC) 2.90 10*3/uL 1.88-7.09 (test code = 2261996471) IMM GRAN x10^3 (test <0.03 0-0.06 code = 2737693737) LYMPH x10^3 (test code 2.23 10*3/uL 1.32-3.29 = 731-0) MONO x10^3 (test code 0.44 10*3/uL 0.33-0.92 = 742-7) EOS x10^3 (test code = 0.09 10*3/uL 0.03-0.39 711-2) BASO x10^3 (test code <0.03 0.01-0.07 = 704-7) Lab Interpretation Abnormal (test code = 26200-8) [facility]2020-08-28 03:37:00 Test Item Value Reference Range Interpretation Comments APPEARANCE (test code = Clear Clear 2976643837) COLOR (test code = Yellow Yellow 1150214010) PH (test code = 4.8-8.0 7593537170) SP GRAVITY (test code = 1.003-1.030 5612461574) GLU U QUAL (test code = Normal Normal 6233352028) BLOOD (test code = Negative Negative INTERFERE NCE FROM 8327947831) ASCORBIC ACID M AY CAUSE FALSE NEG ATIVE RESULT KETONES (test code = Negative Negative 1649903934) PROTEIN (test code = Negative Negative 2887-8) UROBILIN (test code = Normal Normal 3151733213) BILIRUBIN (test code = Negative Negative 1462016996) NITRITE (test code = Negative Negative 5723472080) LEUK NESS (test code = Negative Negative 1010145687) RBC/HPF (test code = See_Comment [Autom ated message] 1725066540) The system [employer] generated this result transmitted ref erence range: 0 - 3 HP F. The reference range was not used to int erpret this result as normal/abnormal . WBC/HPF (test code = See_Comment [Autom ated message] 5415319512) The system [employer] generated this result transmitted ref erence range: 0 - 5 HP F. The reference range was not used to int erpret this result as normal/abnormal . BACTERIA (test code = Few Negative A 9816351638) MUCOUS (test code = Slight Negative LPF A 3232730648) SQ EPITH (test code = HPF 9258217593) Lab Interpretation (test Abnormal code = 36120-5) [facility]"
[2022-09-12] MEDS ORDERED: ONDANSETRON 4 MG/2 ML VIAL ONE (03:15)
[2022-09-12] MEDS ORDERED: NA CHLORIDE 0.9% 1,000 ML ONE (03:15)
[2022-09-12 03:48] LABS: Absolute Lymphocytes (CBC) 1.7 K/uL (0.7-4.9); Hematocrit 42.7 % (36.0-45.0); Lymphocytes % 18.3 % (15.3-44.8); MCV 81.5 fL (80-100); MPV 7.9 fL (7.6-11.3); RBC Red Blood Cell Count 5.24 M/uL (3.86-4.86)
[2022-09-12 04:09] LABS: Albumin 3.6 g/dL (3.4-5.0); Bilirubin Total 0.3 mg/dL (0.2-1.0); Protein, Total 8.1 g/dL (6.4-8.2); Troponin High Sensitivity 15.8 pg/mL (<58.9)
--- NOTE | 2022-09-12 04:16 | ER ---
Nurse's Notes [facility] Name: Shelia Valentine Age: 71 yrs Sex: Female : 1950 Arrival Date: 09/12/2022 Time: 02:43 Bed 15 Private MD: Diagnosis: Vomiting Presentation: 09/12 02:48 Chief complaint: EMS states: 71 year old female woke up at midnight feeling nausea. tw5 Coronavirus screen: Vaccine status: Patient reports receiving the 2nd dose of the covid vaccine. Ebola Screen: No symptoms or risks identified at this time. Initial Sepsis Screen: Does the patient meet any 2 criteria? No. Patient's initial sepsis screen is negative. Does the patient have a suspected source of infection? No. Patient's initial sepsis screen is negative. Risk Assessment: Do you want to hurt yourself or someone else? Patient reports no desire to harm self or others. Onset of symptoms was September 12, 2022. 02:48 Method Of Arrival: EMS: [facility] tw5 02:48 Acuity: ADDI 3 tw5 Triage Assessment: 02:53 General: Appears uncomfortable, Behavior is calm, cooperative. Pain: Complains of pain tw5 in abdomen Pain does not radiate. Pain currently is 8 out of 10 on a pain scale. EENT: No signs and/or symptoms were reported regarding the EENT system. Neuro: Level of Consciousness is awake, alert, obeys commands, Oriented to person, place, time, situation, Reports having a stroke a month ago.. Cardiovascular: Reports having a defibrillator and a pacemaker Capillary refill < 3 seconds Patient's skin is warm and dry. Respiratory: Airway is patent Trachea midline Respiratory effort is even, unlabored, Respiratory pattern is regular, symmetrical. GI: Abdomen is non-distended, obese, Bowel sounds present X 4 quads. Reports vomiting. : No signs and/or symptoms were reported regarding the genitourinary system. Derm: Skin is pink, warm \T\ dry. Musculoskeletal: Range of motion: limited in left side of body. Historical: - Allergies: 02:53 Cipro; tw 02:53 Codeine; tw5 02:53 Demerol; tw5 02:53 HYDROCODONE; tw 02:53 Morphine; tw 02:53 PENICILLINS; tw5 02:53 Sulfa (Sulfonamide Antibiotics); - Home Meds: 02:53 lisinopril 20 mg Oral tab 1 tab twice daily [Active]; - PMHx: 02:53 Arthritis; CAD; High Cholesterol; Hypertension; Osteoporosis; Kidney stones; GERD; tw Sleep Apnea; chest pain; Pancreatitis; - Immunization history:: Adult Immunizations up to date. - Social history:: Smoking status: unknown. - Family history:: not pertinent. Screenin:06 Abuse screen: Denies threats or abuse. Denies injuries from another. Nutritional tw5 screening: No deficits noted. Tuberculosis screening: No symptoms or risk factors identified. 03:10 [facility] ED Fall Risk Assessment (Adult) History of falling in the last 3 months, pf1 including since admission No falls in past 3 months (0 pts) Confusion or Disorientation No (0 pts) Intoxicated or Sedated No (0 pts) Impaired Gait Yes (1 pt) Mobility Assist Device Used Yes (1 pt) Altered Elimination No (0 pt) Score/Fall Risk Level 0 - 2 = Low Risk Oriented to surroundings, Maintained a safe environment, Educated pt \T\ family on fall prevention, incl call for assistance when getting out of bed, Assessed \T\ reinforced patient's understanding of fall precautions, Provided non-skid footwear, Hourly rounding (assess needs \T\ fall precautionary measures) done, Used ambulatory aids as needed (educated on \T\ assisted with), Used gait belt as appropriate. Assessment: 02:50 General: Appears uncomfortable, well groomed, well developed, Behavior is calm, pf1 cooperative, appropriate for age, anxious. 02:50 Pain: Complains of pain in back of neck, back and left leg Pain currently is 8 out of pf1 10 on a pain scale. Neuro: No deficits noted. Level of Consciousness is awake, alert, obeys commands, Oriented to person, place, time, situation. Cardiovascular: No deficits noted. Respiratory: No deficits noted. Airway is patent. GI: Reports nausea. GI: Bowel sounds present X 4 quads. Abd is soft and non tender X 4 quads. Abd is soft X 4 quads. : No deficits noted. No signs and/or symptoms were reported regarding the genitourinary system. EENT: No deficits noted. No signs and/or symptoms were reported regarding the EENT system. Derm: No deficits noted. No signs and/or symptoms reported regarding the dermatologic system. Musculoskeletal: Reports pain in left leg. 03:50 Reassessment: Patient and/or family updated on plan of care and expected duration. Pain tw5 level reassessed. Patient is alert, oriented x 3, equal unlabored respirations, skin warm/dry/pink. 04:30 General: Patient discharge, waiting on granddaughter to arrive to go home. pf1 Vital Signs: 02:30 BP 156 / 103; Pulse 64; Resp 20; Pulse Ox 99% on R/A; tw5 02:48 BP 156 / 103; Pulse 64; Resp 20 S; Temp 98.2; Pulse Ox 99% on R/A; Weight 68.04 kg; tw5 Height 5 ft. 4 in. (162.56 cm); 03:30 BP 181 / 95; Pulse 62; Resp 18 S; Pulse Ox 99% on R/A; tw5 04:00 BP 160 / 90; Pulse 62; Resp 18 S; Pulse Ox 99% on R/A; tw5 02:48 Body Mass Index 25.75 (68.04 kg, 162.56 cm) tw5 ED Course: 02:43 Patient arrived in ED. wm 02:45 Alex Dwyer MD is Attending Physician. rt 02:45 Patient has correct armband on for positive identification. Placed in gown. Bed in low tw5 position. Call light in reach. Side rails up X 1. 02:53 Triage completed. tw5 02:53 Arm band placed on right wrist. tw5 02:55 Marcelina krueger, KOBI is Primary Nurse. pf1 03:30 No provider procedures requiring assistance completed. Inserted saline lock: 20 gauge pf1 in right antecubital area, using aseptic technique. Blood collected. 03:37 Lipase Sent. pf1 03:37 CMP Sent. pf1 03:37 CBC with Diff Sent. pf1 03:37 Troponin High Sensitivity Sent. pf1 04:51 IV discontinued, intact, bleeding controlled, No redness/swelling at site. pf1 Administered Medications: 03:35 Drug: NS 0.9% 1000 ml Route: IV; Rate: 1 bolus; Site: right antecubital; pf1 04:29 Follow up: Response: No adverse reaction; Marked relief of symptoms; IV Status: pf1 Completed infusion; IV Intake: 500ml 03:36 Drug: Zofran (Ondansetron) 4 mg Route: IVP; Site: right antecubital; pf1 03:50 Follow up: Response: Nausea is decreased pf1 04:26 Not Given (Physician Discretion; change orderr): Ketorolac 10 mg 30 mg IVP once pf1 04:28 Drug: Ketorolac 30 mg Route: IVP; Site: right antecubital; pf1 04:49 Follow up: Response: No adverse reaction; Pain is decreased pf1 Medication: 04:53 VIS not applicable for this client. pf1 Intake: 04:29 IV: 500ml; Total: 500ml. pf1 Outcome: 04:15 Discharge ordered by MD. rt 04:51 Discharged to home via wheelchair, with family. pf1 04:51 Condition: improved 04:51 Discharge instructions given to patient, Instructed on discharge instructions, follow up and referral plans. medication usage, Demonstrated understanding of instructions, follow-up care, medications, Prescriptions given X 1. 05:05 Patient left the ED. pf1 Signatures: Halley Trujillo Tiffany tw5 Alex Dwyer MD MD rt Marcelina krueger, RN RN pf1 Corrections: (The following items were deleted from the chart) 04:53 04:52 PMHx: BRADYCARDIA; pf1 pf1
--- NOTE | 2022-09-12 04:16 | EDPHYS ---
Physician Documentation [facility] Name: Shelia Valentine Age: 71 yrs Sex: Female : 1950 Arrival Date: 09/12/2022 Time: 02:43 Bed 15 Private MD: ED Physician Alex Dwyer HPI: 09/12 03:23 This 71 yrs old Female presents to ER via EMS with complaints of Vomiting. rt 03:23 The patient presents to the emergency department with nausea, vomiting. Onset: The rt symptoms/episode began/occurred acutely, 1 hour(s) ago. The symptoms are aggravated by nothing. The symptoms are alleviated by nothing. Associated signs and symptoms: Pertinent negatives: abdominal pain. Presents to the ED with nausea and vomiting occurring just prior to arrival. She tried to take a nausea medication but vomited it up. States that the nausea is somewhat improved, but denies any abdominal pain, the complaints. Symptoms are moderate in severity, no other aggravating alleviating factors.. Historical: - Allergies: 02:53 Cipro; tw5 02:53 Codeine; tw5 02:53 Demerol; tw5 02:53 HYDROCODONE; tw5 02:53 Morphine; tw5 02:53 PENICILLINS; tw5 02:53 Sulfa (Sulfonamide Antibiotics); tw5 - Home Meds: 02:53 lisinopril 20 mg Oral tab 1 tab twice daily [Active]; tw5 - PMHx: 02:53 Arthritis; CAD; High Cholesterol; Hypertension; Osteoporosis; Kidney stones; GERD; tw5 Sleep Apnea; chest pain; Pancreatitis; - Immunization history:: Adult Immunizations up to date. - Social history:: Smoking status: unknown. - Family history:: not pertinent. ROS: 03:23 Constitutional: Negative for fever, chills, and weight loss, Eyes: Negative for injury, rt pain, redness, and discharge, ENT: Negative for injury, pain, and discharge, Neck: Negative for injury, pain, and swelling, Cardiovascular: Negative for chest pain, palpitations, and edema, Respiratory: Negative for shortness of breath, cough, wheezing, and pleuritic chest pain, MS/Extremity: Negative for injury and deformity, Skin: Negative for injury, rash, and discoloration, Neuro: Negative for headache, weakness, numbness, tingling, and seizure, Psych: Negative for depression, anxiety, suicide ideation, homicidal ideation, and hallucinations. 03:23 Abdomen/GI: Positive for nausea and vomiting, Negative for abdominal pain, diarrhea. Exam: 03:23 Constitutional: This is a well developed, well nourished patient who is awake, alert, rt and in no acute distress. Head/Face: Normocephalic, atraumatic. Eyes: Pupils equal round and reactive to light, extra-ocular motions intact. Lids and lashes normal. Conjunctiva and sclera are non-icteric and not injected. Cornea within normal limits. Periorbital areas with no swelling, redness, or edema. ENT: Nares patent. No nasal discharge, no septal abnormalities noted. Tympanic membranes are normal and external auditory canals are clear. Oropharynx with no redness, swelling, or masses, exudates, or evidence of obstruction, uvula midline. Mucous membranes moist. Neck: Trachea midline, no thyromegaly or masses palpated, and no cervical lymphadenopathy. Supple, full range of motion without nuchal rigidity, or vertebral point tenderness. No Meningismus. Chest/axilla: Normal chest wall appearance and motion. Nontender with no deformity. No lesions are appreciated. Cardiovascular: Regular rate and rhythm with a normal S1 and S2. No gallops, murmurs, or rubs. Normal PMI, no JVD. No pulse deficits. Respiratory: Lungs have equal breath sounds bilaterally, clear to auscultation and percussion. No rales, rhonchi or wheezes noted. No increased work of breathing, no retractions or nasal flaring. Abdomen/GI: Soft, non-tender, with normal bowel sounds. No distension or tympany. No guarding or rebound. No evidence of tenderness throughout. Skin: Warm, dry with normal turgor. Normal color with no rashes, no lesions, and no evidence of cellulitis. MS/ Extremity: Pulses equal, no cyanosis. Neurovascular intact. Full, normal range of motion. Neuro: Awake and alert, GCS 15, oriented to person, place, time, and situation. Cranial nerves II-XII grossly intact. Motor strength 5/5 in all extremities. Sensory grossly intact. Cerebellar exam normal. Normal gait. Psych: Awake, alert, with orientation to person, place and time. Behavior, mood, and affect are within normal limits. 03:23 ECG was reviewed by the Attending Physician. Vital Signs: 02:30 BP 156 / 103; Pulse 64; Resp 20; Pulse Ox 99% on R/A; tw5 02:48 BP 156 / 103; Pulse 64; Resp 20 S; Temp 98.2; Pulse Ox 99% on R/A; Weight 68.04 kg; tw5 Height 5 ft. 4 in. (162.56 cm); 03:30 BP 181 / 95; Pulse 62; Resp 18 S; Pulse Ox 99% on R/A; tw5 04:00 BP 160 / 90; Pulse 62; Resp 18 S; Pulse Ox 99% on R/A; tw5 02:48 Body Mass Index 25.75 (68.04 kg, 162.56 cm) tw5 MDM: 02:46 Patient medically screened. rt 04:16 Differential diagnosis: Nonspecific abd pain, gastritis, cholecystitis, pancreatitis, rt appendicitis. Data reviewed: vital signs, nurses notes, old medical records, EKG, radiologic studies. ED course: Patient presents to the ED with nausea, vomiting. This does resolve with Zofran, IV fluids. The patient has stable vital signs, benign abdominal examination, very low suspicion for acute surgical pathology, do not believe that advanced imaging is indicated at this time. Labs, EKG showed no acute findings. She is stable for outpatient care, return precautions were discussed.. 09/12 02:53 Order name: CBC with Diff; Complete Time: 04:12 rt 09/12 02:53 Order name: CMP; Complete Time: 04:12 rt 09/12 02:53 Order name: Lipase; Complete Time: 04:12 rt 09/12 02:53 Order name: Troponin High Sensitivity; Complete Time: 04:12 rt 09/12 02:53 Order name: EKG; Complete Time: 02:54 rt 09/12 02:53 Order name: EKG - Nurse/Tech; Complete Time: 03:37 rt EC:23 Rate is 62 beats/min. Rhythm is regular, Paced with No ectopy, AV sequential paced. QRS rt [place] is Normal. NM interval is normal. No Q waves. T waves are Normal. Administered Medications: 03:35 Drug: NS 0.9% 1000 ml Route: IV; Rate: 1 bolus; Site: right antecubital; pf1 04:29 Follow up: Response: No adverse reaction; Marked relief of symptoms; IV Status: pf1 Completed infusion; IV Intake: 500ml 03:36 Drug: Zofran (Ondansetron) 4 mg Route: IVP; Site: right antecubital; pf1 03:50 Follow up: Response: Nausea is decreased pf1 04:26 Not Given (Physician Discretion; change orderr): Ketorolac 10 mg 30 mg IVP once pf1 04:28 Drug: Ketorolac 30 mg Route: IVP; Site: right antecubital; pf1 04:49 Follow up: Response: No adverse reaction; Pain is decreased pf1 Disposition Summary: 09/12/22 04:15 Discharge Ordered Location: Home rt Problem: new rt Symptoms: are resolved rt Condition: Stable rt Diagnosis - Vomiting rt Followup: rt - With: Private Physician - When: 2 - 3 days - Reason: Discharge Instructions: - Discharge Summary Sheet rt - Nausea and Vomiting, Adult rt Forms: - Medication Reconciliation Form rt - Thank You Letter rt - Antibiotic Education rt - Prescription Opioid Use rt Prescriptions: - Zofran 4 mg Oral Tablet - take 1 tablet by ORAL route every 12 hours As needed; 20 tablet; Refills: 0, rt Product Selection Permitted Signatures: Dispatcher [employer] EVELYN Chester Alyssa tw5 Alex Dwyer MD MD rt Marcelina krueger RN RN pf1 Corrections: (The following items were deleted from the chart) 04:53 04:52 PMHx: BRADYCARDIA; pf1 pf1
[2022-09-12] MEDS ORDERED: KETOROLAC 30 MG/ML INJ ONE (04:27)
[2022-09-12 05:14] VITALS: TEMP 98.2; O2SAT 99
[2022-09-12 05:23] VITALS: BP 160/90
--- NOTE | 2022-09-14 13:44 | EKG ---
Test Date: 2022-09-12 Test Time: 03:20:13 [employer] Worker: SEBASTIEN MEASUREMENT RESULTS: Intervals: Rate: 62 MT: 218 QRSD: 160 QT: 516 QTc: 523 [place]: P: 65 MT: 218 QRS: 75 T: 178 INTERPRETIVE STATEMENTS: Atrial-sensed ventricular-paced rhythm with prolonged AV conduction Abnormal ECG Electronically Signed On 09-14-22 13:39:37 HISTORICAL INTERPRETER by Cecilio Gunn
== END 2022-09-12 05:05 | disposition home or self-care (01) ==
LOC: ER 02:39
DX: R11.2 Nausea with vomiting, unspecified (principal); I10 Essential (primary) hypertension; Z88.0 Allergy status to penicillin; Z88.1 Allergy status to other antibiotic agents; Z88.2 Allergy status to sulfonamides; Z88.5 Allergy status to narcotic agent
CPT/HCPCS: 93005; 85025; 36415; 84484; 83690; 80053; J7030; J2405; 96361; 96374; 96375; 99284

== ENCOUNTER 2023-06-09 09:47 | Emergency (ER) | payer OTHER ==
--- OUTSIDE RECORDS SUMMARY | 2023-06-09 09:54 | XMS REPORT | Continuity of Care Document ---
:1950 Author Organization [facility] t Address [address] [place] [address] Care Team Providers Name Role Phone GABRIEL DORMAN Primary Care Physician Unavailable JOSE ANGEL LOZA Attending Clinician Unavailable ROMIE ARRIAGA Attending Clinician Unavailable ROMIE ARRIAGA Attending Clinician Unavailable KERRI PINA Attending Clinician Unavailable KERRI PINA Attending Clinician Unavailable Veronica Medina PT Attending Clinician Unavailable Kerri Pina MD Attending Clinician Yaneth Buckley PTA Attending Clinician Unavailable Bel Dominguez PT Attending Clinician Unavailable , Sleep Lab Bed Attending Clinician Unavailable Romie Arriaga MD Attending Clinician Doctor Unassigned, [place] Attending Clinician Unavailable Lucille Anthony OT Attending Clinician Unavailable Lucille Love PTA Attending Clinician Unavailable Stevenson Love PTA Attending Clinician Unavailable Anabela Kimbrough PTA Attending Clinician Unavailable Chelita Che PT Attending Clinician Unavailable GIULIA GROSS Attending Clinician Unavailable SHREYAS GARSIA Attending Clinician Unavailable CORNELIUS ROSE Attending Clinician Unavailable Darrick LOYA, Anabela Attending Clinician Niecy BALDERRAMA Margaret Navid Attending Clinician GIULIA GROSS Admitting Clinician Unavailable Payers Payer Name Policy Type Policy Number Effective Date Expiration Date Navid thomason [facility] WELLMED [id number] 2021 00:00:00 MEDICAID [facility] [id number] 2018 00:00:00 WELLMED/AARP [id number] 2019 MEDICARE ADVANTAGE 00:00:00 MEDICARE PART A [id number] 2015 \\T\\ B 00:00:00 Problems Condition Condition Condition Status Onset Resolution Last Treating Co mments Source Name Details Category Date Date Treatment Clinician Date No known No known Disease Unive rs active active ity of problems problems [facility] Allergies, Adverse Reactions, Alerts Allergy Allergy Status Severity Reaction(s) Onset Inactive Treating Comm ents Source Name Type Date Date Clinician ONDANSET DRUG Active ITCHING 2017-09 Univers TEDDY HCL 0-05 ity of (PF) 00:00: [place] [address] [facility] Ondanset Propensi Active Itching 2017-09 Reaction Uni [...] 2-27 ity of adverse 00:00: [place] reaction Medical s Branch Doxycycl Propensi Active Nausea Only 2006-09 U nivers ine ty to 2-27 ity of adverse 00:00: [place] reaction Medical s Branch Famotidi Propensi Active Nausea Only 2006-09 U nivers ne ty to 2-27 ity of adverse 00:00: [place] reaction Medical s Branch Hydroxyz Propensi Active Nausea Only 2006-09 U nivers ine ty to 2-27 ity of adverse 00:00: [place] reaction Medical s Branch Ibuprofe Propensi Active Nausea Only 2006-09 U nivers n ty to 2-27 ity of adverse 00:00: [place] reaction Medical s Branch Sulfa Propensi Active Nausea Only 2006-09 Uni vers (Sulfona ty to 2-27 ity of mide adverse 00:00: [place] Antibiot reaction 00 Medica l ics) s Branch Social History Social Habit Start Date Stop Date Quantity Comments [facility] Sexual orientation Univer sity [facility] History of tobacco Current smoker Un iversity of use [facility] Exposure to 2023-01-23 2023-02-02 Not sure University of SARS-CoV-2 (event) 00:00:00 09:11:00 [facility] History of Social 2020-10-10 2020-10-10 Univers ity of function 00:00:00 00:00:00 [facility] Tobacco use and 2020-10-10 2020-10-10 Never used Universit y of exposure 00:00:00 00:00:00 [facility] Alcohol intake 2020-10-10 2020-10-10 0 /d University of 00:00:00 00:00:00 [facility] Sex Assigned At [birth year] Universit y of 00:00:00 00:00:00 [facility] Smoking Status Start Date Stop Date Source Ex-smoker 2020-10-10 00:00:00 2020-10-10 [facility] [place] [place] [facility] Medications Ordered Filled Start Stop Current Ordering [...] 10/10/20 at Branch 1700, PAUL methocarbam Yes [id number] 750mg Take 1 Univers oL 750 mg 1-22 tablet by ity o f tablet 00:00: mouth 3 00 (three) Medical times Branch daily as needed (muscle pain). methocarbam Yes [id number] 750mg Take 1 Univers oL 750 mg 1-22 tablet by ity o f tablet 00:00: mouth 3 00 (three) Medical times Branch daily as needed (muscle pain). methocarbam Yes [id number] 750mg Take 1 Univers oL 750 mg 1-22 tablet by ity o f tablet 00:00: mouth 3 [place] 00 (three) Medical times Branch daily as needed (muscle pain). methocarbam Yes [id number] 750mg Take 1 Univers oL 750 mg 1-22 tablet by ity o f tablet 00:00: mouth 3 [place] 00 (three) Medical times Branch daily as needed (muscle pain). methocarbam 2020-0 Yes [id number] 750mg Take 1 Univers oL 750 mg 1-22 tablet by ity o f tablet 00:00: mouth 3 [place] 00 (three) Medical times Branch daily as needed (muscle pain). methocarbam 2020-0 Yes [id number] 750mg Take 1 Univers oL 750 mg 1-22 tablet by ity o f tablet 00:00: mouth 3 [place] 00 (three) Medical times Branch daily as needed (muscle pain). methocarbam 2020-0 Yes [id number] 750mg Take 1 Univers oL 750 mg 1-22 tablet by ity o f tablet 00:00: mouth (three) Medical times Branch daily as needed (muscle pain). methocarbam 2020-0 Yes [id number] 750mg Take 1 Univers oL 750 mg 1-22 tablet by ity o f tablet 00:00: mouth (three) Medical times Branch daily as needed (muscle pain). methocarbam 2020-0 Yes [id number] 750mg Take 1 Univers oL 750 mg 1-22 tablet by ity o f tablet 00:00: mouth (three) Medical times Branch daily as needed (muscle pain). methocarbam 2020-0 Yes [id number] 750mg Take 1 Univers oL 750 mg 1-22 tablet by ity o f tablet 00:00: mouth (three) Medical times Branch daily as needed (muscle pain). methocarbam 2020-0 Yes [id number] 750mg Take 1 Univers oL 750 mg 1-22 tablet by ity o f tablet 00:00: mouth (three) Medical times Branch daily as needed (muscle pain). methocarbam 2020-0 Yes [id number] 750mg Take 1 Univers oL 750 mg 1-22 tablet by ity o f tablet 00:00: mouth (three) Medical times Branch daily as needed (muscle pain). methocarbam 2020-0 Yes [id number] 750mg Take 1 Univers oL 750 mg 1-22 tablet by ity o f tablet 00:00: mouth (three) Medical times Branch daily as needed (muscle pain). methocarbam 2020-0 Yes [id number] 750mg Take 1 Univers oL 750 mg 1-22 tablet by ity o f tablet 00:00: mouth (three) Medical times Branch daily as needed (muscle pain). methocarbam 2020-0 Yes [id number] 750mg Take 1 Univers oL 750 mg 1-22 tablet by ity o f tablet 00:00: mouth 3 (three) Medical times Branch daily as needed (muscle pain). methocarbam 2020-0 Yes [id number] 750mg Take 1 Univers oL 750 mg 1-22 tablet by ity o f tablet 00:00: mouth 3 (three) Medical times Branch daily as needed (muscle pain). methocarbam 2020-0 Yes [id number] 750mg Take 1 Univers oL 750 mg 1-22 tablet by ity o f tablet 00:00: mouth 3 (three) Medical times Branch daily as needed (muscle pain). methocarbam 2020-0 Yes [id number] 750mg Take 1 Univers oL 750 mg 1-22 tablet by ity o f tablet 00:00: mouth 3 (three) Medical times Branch daily as needed (muscle pain). methocarbam 2020-0 Yes [id number] 750mg Take 1 Univers oL 750 mg 1-22 tablet by ity o f tablet 00:00: mouth (three) Medical times Branch daily as needed (muscle pain). methocarbam 2020-0 Yes [id number] 750mg Take 1 Univers oL 750 mg 1-22 tablet by ity o f tablet 00:00: mouth (three) Medical times Branch daily as needed (muscle pain). methocarbam 0 Yes [id number] 750mg Take 1 Univers oL 750 mg 1-22 tablet by ity o f tablet 00:00: mouth (three) Medical times Branch daily as needed (muscle pain). methocarbam 2020-0 Yes [id number] 750mg Take 1 Univers oL 750 mg 1-22 tablet by ity o f tablet 00:00: mouth (three) Medical times Branch daily as needed (muscle pain). methocarbam 2020-0 Yes [id number] 750mg Take 1 Univers oL 750 mg 1-22 tablet by ity o f tablet 00:00: mouth (three) Medical times Branch daily as needed (muscle pain). methocarbam 2020-0 Yes [id number] 750mg Take 1 Univers oL 750 mg 1-22 tablet by ity o f tablet 00:00: mouth 3 (three) Medical times Branch daily as needed (muscle pain). methocarbam 2020-0 Yes [id number] 750mg Take 1 Univers oL 750 mg 1-22 tablet by ity o f tablet 00:00: mouth 3 (three) Medical times Branch daily as needed (muscle pain). methocarbam 2020-0 Yes [id number] 750mg Take 1 Univers oL 750 mg 1-22 tablet by ity o f tablet 00:00: mouth 3 (three) Medical times Branch daily as needed (muscle pain). methocarbam 2020-0 Yes [id number] 750mg Take 1 Univers oL 750 mg 1-22 tablet by ity o f tablet 00:00: mouth 3 (three) Medical times Branch daily as needed (muscle pain). methocarbam 2020-0 Yes [id number] 750mg Take 1 Univers oL 750 mg 1-22 tablet by ity o f tablet 00:00: mouth (three) Medical times Branch daily as needed (muscle pain). methocarbam 2020-0 Yes [id number] 750mg Take 1 Univers oL 750 mg 1-22 tablet by ity o f tablet 00:00: mouth (three) Medical times Branch daily as needed (muscle pain). methocarbam 2020-0 Yes [id number] 750mg Take 1 Univers oL 750 mg 1-22 tablet by ity o f tablet 00:00: mouth (three) Medical times Branch daily as needed (muscle pain). methocarbam 2020-0 Yes [id number] 750mg Take 1 Univers oL 750 mg 1-22 tablet by ity o f tablet 00:00: mouth (three) Medical times Branch daily as needed (muscle pain). methocarbam 2020-0 Yes [id number] 750mg Take 1 Univers oL 750 mg 1-22 tablet by ity o f tablet 00:00: mouth (three) Medical times Branch daily as needed (muscle pain). methocarbam 2020-0 Yes [id number] 750mg Take 1 Univers oL 750 mg 1-22 tablet by ity o f tablet 00:00: mouth (three) Medical times Branch daily as needed (muscle pain). methocarbam 2020-0 Yes [id number] 750mg Take 1 Univers oL 750 mg 1-22 tablet by ity o f tablet 00:00: mouth 3 (three) Medical times Branch daily as needed (muscle pain). methocarbam 2020-0 Yes [id number] 750mg Take 1 Univers oL 750 mg 1-22 tablet by ity o f tablet 00:00: mouth (three) Medical times Branch daily as needed (muscle pain). methocarbam 2020-0 Yes [id number] 750mg Take 1 Univers oL 750 mg 1-22 tablet by ity o f tablet 00:00: mouth 3 (three) Medical times Branch daily as needed (muscle pain). methocarbam 2020-0 Yes [id number] 750mg Take 1 Univers oL 750 mg 1-22 tablet by ity o f tablet 00:00: mouth (three) Medical times Branch daily as needed (muscle pain). methocarbam 2020-0 Yes [id number] 750mg Take 1 Univers oL 750 mg 1-22 tablet by ity o f tablet 00:00: mouth (three) Medical times Branch daily as needed (muscle pain). methocarbam 2020-0 Yes [id number] 750mg Take 1 Univers oL 750 mg 1-22 tablet by ity o f tablet 00:00: mouth (three) Medical times Branch daily as needed (muscle pain). methocarbam 2020-0 Yes [id number] 750mg Take 1 Univers oL 750 mg 1-22 tablet by ity o f tablet 00:00: mouth (three) Medical times Branch daily as needed (muscle pain). methocarbam 2020-0 Yes [id number] 750mg Take 1 Univers oL 750 mg 1-22 tablet by ity o f tablet 00:00: mouth (three) Medical times Branch daily as needed (muscle pain). methocarbam 2020-0 Yes [id number] 750mg Take 1 Univers oL 750 mg 1-22 tablet by ity o f tablet 00:00: mouth (three) Medical times Branch daily as needed (muscle pain). methocarbam 2020-0 Yes [id number] 750mg Take 1 Univers oL 750 mg 1-22 tablet by ity o f tablet 00:00: mouth (three) Medical times Branch daily as needed (muscle pain). methocarbam 2020-0 Yes [id number] 750mg Take 1 Univers oL 750 mg 1-22 tablet by ity o f tablet 00:00: mouth (three) Medical times Branch daily as needed (muscle pain). methocarbam 2020-0 Yes [id number] 750mg Take 1 Univers oL 750 mg 1-22 tablet by ity o f tablet 00:00: mouth 3 (three) Medical times Branch daily as needed (muscle pain). methocarbam 2020-0 Yes [id number] 750mg Take 1 Univers oL 750 mg 1-22 tablet by ity o f tablet 00:00: mouth 3 (three) Medical times Branch daily as needed (muscle pain). methocarbam 2020-0 Yes [id number] 750mg Take 1 Univers oL 750 mg 1-22 tablet by ity o f tablet 00:00: mouth 3 (three) Medical times Branch daily as needed (muscle pain). methocarbam 2020-0 Yes [id number] 750mg Take 1 Univers oL 750 mg 1-22 tablet by ity o f tablet 00:00: mouth 3 (three) Medical times Branch daily as needed (muscle pain). methocarbam 2020-0 Yes [id number] 750mg Take 1 Univers oL 750 mg 1-22 tablet by ity o f tablet 00:00: mouth (three) Medical times Branch daily as needed (muscle pain). methocarbam 2020-0 Yes [id number] 750mg Take 1 Univers oL 750 mg 1-22 tablet by ity o f tablet 00:00: mouth (three) Medical times Branch daily as needed (muscle pain). methocarbam 2020-0 Yes [id number] 750mg Take 1 Univers oL 750 mg 1-22 tablet by ity o f tablet 00:00: mouth (three) Medical times Branch daily as needed (muscle pain). methocarbam 2020-0 Yes [id number] 750mg Take 1 Univers oL 750 mg 1-22 tablet by ity o f tablet 00:00: mouth 3 (three) Medical times Branch daily as needed (muscle pain). methocarbam 2020-0 Yes [id number] 750mg Take 1 Univers oL 750 mg 1-22 tablet by ity o f tablet 00:00: mouth 3 (three) Medical times Branch daily as needed (muscle pain). methocarbam 2020-0 Yes [id number] 750mg Take 1 Univers oL 750 mg 1-22 tablet by ity o f tablet 00:00: mouth 3 [place] 00 (three) Medical times Branch daily as needed (muscle pain). methocarbam 1-0 Yes [id number] 750mg Take 1 Univers oL 750 mg 1-22 tablet by ity o f tablet 00:00: mouth 3 00 (three) Medical times Branch daily as needed (muscle pain). methocarbam 2021-0 Yes [id number] 750mg Take 1 Univers oL 750 mg 1-22 tablet by ity o f tablet 00:00: mouth 3 (three) Medical times Branch daily as needed (muscle pain). methocarbam 1-0 Yes [id number] 750mg Take 1 Univers oL 750 mg 1-22 tablet by ity o f tablet 00:00: mouth 3 00 (three) Medical times Branch daily as needed (muscle pain). methocarbam 2021-0 Yes [id number] 750mg Take 1 Univers oL 750 mg 1-22 tablet by ity o f tablet 00:00: mouth 3 (three) Medical times Branch daily as needed (muscle pain). albuterol 2019-0 2020- No 2{puff} 2 Puff, U nivers [...] Medical 05/16/20 at Branch 0100, STAT albuterol 2020-0 Yes [id number] 2{puff} Inhale 2 Univers 90 8-28 Puffs ity of mcg/actuati 00:00: every 4 [place] as on inhaler 00 (four) Medical hours as Branch needed for Wheezing or Shortness of Breath. albuterol 2020-0 Yes [id number] 2{puff} Inhale 2 Univers 90 8-28 Puffs ity of mcg/actuati 00:00: every 4 [place] as on inhaler 00 (four) Medical hours as Branch needed for Wheezing or Shortness of Breath. albuterol 2020-0 Yes [id number] 2{puff} Inhale 2 Univers 90 8-28 Puffs ity of mcg/actuati 00:00: every 4 [place] as on inhaler 00 (four) Medical hours as Branch needed for Wheezing or Shortness of Breath. albuterol 2020-0 Yes [id number] 2{puff} Inhale 2 Univers 90 8-28 Puffs ity of mcg/actuati 00:00: every 4 [place]ifan as on inhaler 00 (four) Medical hours as Branch needed for Wheezing or Shortness of Breath. albuterol 2020-0 Yes [id number] 2{puff} Inhale 2 Univers 90 8-28 Puffs ity of mcg/actuati 00:00: every 4 [place]if[place] as on inhaler 00 (four) Medical hours as Branch needed for Wheezing or Shortness of Breath. albuterol 2020-0 Yes [id number] 2{puff} Inhale 2 Univers 90 8-28 Puffs ity of mcg/actuati 00:00: every 4 [place]ifan as on inhaler 00 (four) Medical hours as Branch needed for Wheezing or Shortness of Breath. albuterol 2020-0 Yes [id number] 2{puff} Inhale 2 Univers 90 8-28 Puffs ity of mcg/actuati 00:00: every 4 [place]if[place] as on inhaler 00 (four) Medical hours as Branch needed for Wheezing or Shortness of Breath. albuterol 2020-0 Yes [id number] 2{puff} Inhale 2 Univers 90 8-28 Puffs ity of mcg/actuati 00:00: every 4 Yifan as on inhaler 00 (four) Medical hours as Branch needed for Wheezing or Shortness of Breath. albuterol 2020-0 Yes [id number] 2{puff} Inhale 2 Univers 90 8-28 Puffs ity of mcg/actuati 00:00: every 4 [place] as on inhaler 00 (four) Medical hours as Branch needed for Wheezing or Shortness of Breath. albuterol 2020-0 Yes [id number] 2{puff} Inhale 2 Univers 90 8-28 Puffs ity of mcg/actuati 00:00: every 4 [place] as on inhaler 00 (four) Medical hours as Branch needed for Wheezing or Shortness of Breath. albuterol 2020-0 Yes [id number] 2{puff} Inhale 2 Univers 90 8-28 Puffs ity of mcg/actuati 00:00: every 4 [place] as on inhaler 00 (four) Medical hours as Branch needed for Wheezing or Shortness of Breath. albuterol 2020-0 Yes [id number] 2{puff} Inhale 2 Univers 90 8-28 Puffs ity of mcg/actuati 00:00: every 4 [place] as on inhaler 00 (four) Medical hours as Branch needed for Wheezing or Shortness of Breath. albuterol 2020-0 Yes [id number] 2{puff} Inhale 2 Univers 90 8-28 Puffs ity of mcg/actuati 00:00: every 4 [place] as on inhaler 00 (four) Medical hours as Branch needed for Wheezing or Shortness of Breath. albuterol 2020-0 Yes [id number] 2{puff} Inhale 2 Univers 90 8-28 Puffs ity of mcg/actuati 00:00: every 4 [place] as on inhaler 00 (four) Medical hours as Branch needed for Wheezing or Shortness of Breath. albuterol 2020-0 Yes [id number] 2{puff} Inhale 2 Univers 90 8-28 Puffs ity of mcg/actuati 00:00: every 4 [place] as on inhaler 00 (four) Medical hours as Branch needed for Wheezing or Shortness of Breath. albuterol 2020-0 Yes [id number] 2{puff} Inhale 2 Univers 90 8-28 Puffs ity of mcg/actuati 00:00: every 4 [place]if[place] as on inhaler 00 (four) Medical hours as Branch needed for Wheezing or Shortness of Breath. albuterol 2020-0 Yes [id number] 2{puff} Inhale 2 Univers 90 8-28 Puffs ity of mcg/actuati 00:00: every 4 [place] as on inhaler 00 (four) Medical hours as Branch needed for Wheezing or Shortness of Breath. albuterol 2020-0 Yes [id number] 2{puff} Inhale 2 Univers 90 8-28 Puffs ity of mcg/actuati 00:00: every 4 [place]if[place] as on inhaler 00 (four) Medical hours as Branch needed for Wheezing or Shortness of Breath. albuterol 2020-0 Yes [id number] 2{puff} Inhale 2 Univers 90 8-28 Puffs ity of mcg/actuati 00:00: every 4 [place] as on inhaler 00 (four) Medical hours as Branch needed for Wheezing or Shortness of Breath. albuterol 2020-0 Yes [id number] 2{puff} Inhale 2 Univers 90 8-28 Puffs ity of mcg/actuati 00:00: every 4 [place]if[place] as on inhaler 00 (four) Medical hours as Branch needed for Wheezing or Shortness of Breath. albuterol 2020-0 Yes [id number] 2{puff} Inhale 2 Univers 90 8-28 Puffs ity of mcg/actuati 00:00: every 4 [place] as on inhaler 00 (four) Medical hours as Branch needed for Wheezing or Shortness of Breath. albuterol 2020-0 Yes [id number] 2{puff} Inhale 2 Univers 90 8-28 Puffs ity of mcg/actuati 00:00: every 4 [place] as on inhaler 00 (four) Medical hours as Branch needed for Wheezing or Shortness of Breath. albuterol 2020-0 Yes [id number] 2{puff} Inhale 2 Univers 90 8-28 Puffs ity of mcg/actuati 00:00: every 4 [place]if[place] as on inhaler 00 (four) Medical hours as Branch needed for Wheezing or Shortness of Breath. albuterol 2020-0 Yes [id number] 2{puff} Inhale 2 Univers 90 8-28 Puffs ity of mcg/actuati 00:00: every 4 [place] as on inhaler 00 (four) Medical hours as Branch needed for Wheezing or Shortness of Breath. albuterol 2020-0 Yes [id number] 2{puff} Inhale 2 Univers 90 8-28 Puffs ity of mcg/actuati 00:00: every 4 [place]if[place] as on inhaler 00 (four) Medical hours as Branch needed for Wheezing or Shortness of Breath. albuterol 2020-0 Yes [id number] 2{puff} Inhale 2 Univers 90 8-28 Puffs ity of mcg/actuati 00:00: every 4 [place] as on inhaler 00 (four) Medical hours as Branch needed for Wheezing or Shortness of Breath. albuterol 2020-0 Yes [id number] 2{puff} Inhale 2 Univers 90 8-28 Puffs ity of mcg/actuati 00:00: every 4 [place]if[place] as on inhaler 00 (four) Medical hours as Branch needed for Wheezing or Shortness of Breath. albuterol 2020-0 Yes [id number] 2{puff} Inhale 2 Univers 90 8-28 Puffs ity of mcg/actuati 00:00: every 4 [place]if[place] as on inhaler 00 (four) Medical hours as Branch needed for Wheezing or Shortness of Breath. albuterol 2020-0 Yes [id number] 2{puff} Inhale 2 Univers 90 8-28 Puffs ity of mcg/actuati 00:00: every 4 [place]if[place] as on inhaler 00 (four) Medical hours as Branch needed for Wheezing or Shortness of Breath. albuterol 2020-0 Yes [id number] 2{puff} Inhale 2 Univers 90 8-28 Puffs ity of mcg/actuati 00:00: every 4 Yifan as on inhaler 00 (four) Medical hours as Branch needed for Wheezing or Shortness of Breath. albuterol 2020-0 Yes [id number] 2{puff} Inhale 2 Univers 90 8-28 Puffs ity of mcg/actuati 00:00: every 4 Yif[place] as on inhaler 00 (four) Medical hours as Branch needed for Wheezing or Shortness of Breath. albuterol 2020-0 Yes [id number] 2{puff} Inhale 2 Univers 90 8-28 Puffs ity of mcg/actuati 00:00: every 4 [place]if[place] as on inhaler 00 (four) Medical hours as Branch needed for Wheezing or Shortness of Breath. albuterol 2020-0 Yes [id number] 2{puff} Inhale 2 Univers 90 8-28 Puffs ity of mcg/actuati 00:00: every 4 [place]if[place] as on inhaler 00 (four) Medical hours as Branch needed for Wheezing or Shortness of Breath. albuterol 2020-0 Yes [id number] 2{puff} Inhale 2 Univers 90 8-28 Puffs ity of mcg/actuati 00:00: every 4 [place]if[place] as on inhaler 00 (four) Medical hours as Branch needed for Wheezing or Shortness of Breath. albuterol 2020-0 Yes [id number] 2{puff} Inhale 2 Univers 90 8-28 Puffs ity of mcg/actuati 00:00: every 4 Yifan as on inhaler 00 (four) Medical hours as Branch needed for Wheezing or Shortness of Breath. albuterol 2020-0 Yes [id number] 2{puff} Inhale 2 Univers 90 8-28 Puffs ity of mcg/actuati 00:00: every 4 Yifan as on inhaler 00 (four) Medical hours as Branch needed for Wheezing or Shortness of Breath. albuterol 2020-0 Yes [id number] 2{puff} Inhale 2 Univers 90 8-28 Puffs ity of mcg/actuati 00:00: every 4 Yifan as on inhaler 00 (four) Medical hours as Branch needed for Wheezing or Shortness of Breath. albuterol 2020-0 Yes [id number] 2{puff} Inhale 2 Univers 90 8-28 Puffs ity of mcg/actuati 00:00: every 4 Yifan as on inhaler 00 (four) Medical hours as Branch needed for Wheezing or Shortness of Breath. albuterol 2020-0 Yes [id number] 2{puff} Inhale 2 Univers 90 8-28 Puffs ity of mcg/actuati 00:00: every 4 Yifan as on inhaler 00 (four) Medical hours as Branch needed for Wheezing or Shortness of Breath. albuterol 2020-0 Yes [id number] 2{puff} Inhale 2 Univers 90 8-28 Puffs ity of mcg/actuati 00:00: every 4 Yifan as on inhaler 00 (four) Medical hours as Branch needed for Wheezing or Shortness of Breath. albuterol 2020-0 Yes [id number] 2{puff} Inhale 2 Univers 90 8-28 Puffs ity of mcg/actuati 00:00: every 4 Yifan as on inhaler 00 (four) Medical hours as Branch needed for Wheezing or Shortness of Breath. albuterol 2020-0 Yes [id number] 2{puff} Inhale 2 Univers 90 8-28 Puffs ity of mcg/actuati 00:00: every 4 Yifan as on inhaler 00 (four) Medical hours as Branch needed for Wheezing or Shortness of Breath. albuterol 2020-0 Yes [id number] 2{puff} Inhale 2 Univers 90 8-28 Puffs ity of mcg/actuati 00:00: every 4 Yifan as on inhaler 00 (four) Medical hours as Branch needed for Wheezing or Shortness of Breath. albuterol 2020-0 Yes [id number] 2{puff} Inhale 2 Univers 90 8-28 Puffs ity of mcg/actuati 00:00: every 4 Yifan as on inhaler 00 (four) Medical hours as Branch needed for Wheezing or Shortness of Breath. albuterol 2020-0 Yes [id number] 2{puff} Inhale 2 Univers 90 8-28 Puffs ity of mcg/actuati 00:00: every 4 Yifan as on inhaler 00 (four) Medical hours as Branch needed for Wheezing or Shortness of Breath. albuterol 2020-0 Yes [id number] 2{puff} Inhale 2 Univers 90 8-28 Puffs ity of mcg/actuati 00:00: every 4 Yif[place] as on inhaler 00 (four) Medical hours as Branch needed for Wheezing or Shortness of Breath. albuterol 2020-0 Yes [id number] 2{puff} Inhale 2 Univers 90 8-28 Puffs ity of mcg/actuati 00:00: every 4 Yifan as on inhaler 00 (four) Medical hours as Branch needed for Wheezing or Shortness of Breath. albuterol 2020-0 Yes [id number] 2{puff} Inhale 2 Univers 90 8-28 Puffs ity of mcg/actuati 00:00: every 4 [place]if[place] as on inhaler 00 (four) Medical hours as Branch needed for Wheezing or Shortness of Breath. albuterol 2020-0 Yes [id number] 2{puff} Inhale 2 Univers 90 8-28 Puffs ity of mcg/actuati 00:00: every 4 Yif[place] as on inhaler 00 (four) Medical hours as Branch needed for Wheezing or Shortness of Breath. albuterol 2020-0 Yes [id number] 2{puff} Inhale 2 Univers 90 8-28 Puffs ity of mcg/actuati 00:00: every 4 Yifan as on inhaler 00 (four) Medical hours as Branch needed for Wheezing or Shortness of Breath. albuterol 2020-0 Yes [id number] 2{puff} Inhale 2 [facility] 90 8-28 Puffs ity of mcg/actuati 00:00: every 4 [place] as on inhaler 00 (four) Medical hours as Branch needed for Wheezing or Shortness of Breath. albuterol 2020-0 Yes [id number] 2{puff} Inhale 2 [facility] 90 8-28 Puffs ity of mcg/actuati 00:00: every 4 [place] as on inhaler 00 (four) Medical hours as Branch needed for Wheezing or Shortness of Breath. albuterol Yes [id number] 2{puff} Inhale 2 [facility] 90 8-28 Puffs ity of mcg/actuati 00:00: every 4 [place] as on inhaler 00 (four) Medical hours as Branch needed for Wheezing or Shortness of Breath. albuterol Yes [id number] 2{puff} Inhale 2 [facility] 90 8-28 Puffs ity of mcg/actuati 00:00: every 4 [place] as on inhaler 00 (four) Medical hours as Branch needed for Wheezing or Shortness of Breath. albuterol Yes [id number] 2{puff} Inhale 2 [facility] 90 8-28 Puffs ity of mcg/actuati 00:00: every 4 [place] as on inhaler 00 (four) Medical hours as Branch needed for Wheezing or Shortness of Breath. albuterol Yes [id number] 2{puff} Inhale 2 [facility] 90 8-28 Puffs ity of mcg/actuati 00:00: every 4 [place] [facility] on inhaler 00 (four) Medical hours as Branch needed for Wheezing or Shortness of Breath. albuterol Yes [id number] 2{puff} Inhale 2 [facility] 90 8-28 Puffs ity of mcg/actuati 00:00: every 4 [place] as on inhaler 00 (four) Medical hours as Branch needed for Wheezing or Shortness of Breath. albuterol Yes [id number] 2{puff} Inhale 2 [facility] 90 8-28 Puffs ity of mcg/actuati 00:00: every 4 [place] as on inhaler 00 (four) Medical hours as Branch needed for Wheezing or Shortness of Breath. albuterol Yes [id number] 2{puff} Inhale 2 [facility] 90 8-28 Puffs [...] as needed for Pain (scale 4-6). dicyclomine 2017- Yes 10mg Take 1 [facility] (BENTYL) [...] as needed for Pain (scale 4-6). dicyclomine 2017- Yes 10mg Take 1 [facility] (BENTYL) [...] as needed for Pain (scale 4-6). dicyclomine 2017- Yes 10mg Take 1 [facility] (BENTYL) 10 0-05 capsule by [facility] [place] mg capsule [place]: [place] (four) [facility] times [facility] daily. traMADOL 50 2017-09 Yes 50mg Take 1 [facility] mg tablet 0-05 tablet by ity o f 00:00: mouth [place] 00 every 6 Medical (six) Branch hours as needed for Pain (scale 4-6). dicyclomine 2017- Yes 10mg Take 1 [facility] (BENTYL) 10 0-05 capsule by [facility] mg capsule 00:00: mouth [place] 00 (four) [facility] times [facility] daily. traMADOL 50 2017-09 Yes 50mg Take 1 [facility] mg tablet 0-05 tablet by ity o f 00:00: mouth [place] 00 every 6 Medical (six) Branch hours as needed for Pain (scale 4-6). dicyclomine 2017- Yes 10mg Take 1 [facility] (BENTYL) 10 0-05 capsule by [facility] mg capsule 00:00: mouth [place] 00 (four) [facility] times [facility] daily. traMADOL 50 2017-09 Yes 50mg Take 1 [facility] mg tablet 0-05 tablet by ity o f 00:00: mouth [place] 00 every 6 Medical (six) Branch hours as needed for Pain (scale 4-6). dicyclomine 2017- Yes 10mg Take 1 [facility] (BENTYL) 10 0-05 capsule by [facility] y [facility] mg capsule 00:00: mouth [place] 00 (four) [facility] times [facility] daily. traMADOL 50 2017-09 Yes 50mg Take 1 [facility] mg tablet 0-05 tablet by ity o f 00:00: mouth [place] 00 every 6 Medical (six) Branch hours as needed for Pain (scale 4-6). dicyclomine 2017- Yes 10mg Take 1 [facility] (BENTYL) 10 0-05 capsule by [facility] y of mg capsule 00:00: mouth [place] 00 (four) [facility] times [facility] daily. traMADOL 50 2017-09 Yes 50mg Take 1 [facility] mg tablet 0-05 tablet by ity o f 00:00: mouth [place] 00 every 6 Medical (six) Branch hours as needed for Pain (scale 4-6). dicyclomine 2017- Yes 10mg Take 1 [facility] (BENTYL) 10 0-05 capsule by [facility] y of mg capsule 00:00: mouth [place] 00 (four) [facility] times [facility] daily. traMADOL 50 2017- Yes 50mg Take 1 [facility] mg tablet 0-05 tablet by ity o f 00:00: mouth [place] 00 every 6 Medical (six) Branch hours as needed for Pain (scale 4-6). dicyclomine 2017- Yes 10mg Take 1 [facility] (BENTYL) [...] as needed for Pain (scale 4-6). dicyclomine 2017- Yes 10mg Take 1 [facility] (BENTYL) [...] as needed for Pain (scale 4-6). dicyclomine 2017- Yes 10mg Take 1 [facility] (BENTYL) 10 0-05 capsule by [facility] y [facility] mg capsule 00:00: mouth [place] 00 (four) [facility] times [facility] daily. traMADOL 50 2017-09 Yes 50mg Take 1 [facility] mg tablet 0-05 tablet by ity o f 00:00: mouth [place] 00 every 6 Medical (six) Branch hours as needed for Pain (scale 4-6). dicyclomine 2017- Yes 10mg Take 1 [facility] (BENTYL) 10 0-05 capsule by [facility] y of mg capsule 00:00: mouth [place] 00 (four) [facility] times [facility] daily. traMADOL 50 2017-09 Yes 50mg Take 1 [facility] mg tablet 0-05 tablet by ity o f 00:00: mouth [place] 00 every 6 Medical (six) Branch hours as needed for Pain (scale 4-6). dicyclomine 2017- Yes 10mg Take 1 [facility] (BENTYL) [...] as needed for Pain (scale 4-6). dicyclomine 2017- Yes 10mg Take 1 [facility] (BENTYL) 10 0-05 capsule by [facility] y of mg capsule 00:00: mouth [place] 00 (four) [facility] times [facility] daily. dicyclomine 2017- Yes 10mg Take 1 [facility] (BENTYL) 10 0-05 capsule by it y of mg capsule 00:00: mouth [place] 00 (four) [facility] times Branch daily. traMADOL 50 2017-09 Yes 50mg Take 1 [facility] mg tablet 0-05 tablet by ity o f 00:00: mouth [place] 00 every 6 Medical (six) Branch hours as needed for Pain (scale 4-6). traMADOL 50 2017-09 Yes 50mg Take 1 [facility] mg tablet 0-05 tablet by ity o f 00:00: mouth [place] 00 every 6 Medical (six) Branch hours as needed for Pain (scale 4-6). dicyclomine 2017- Yes 10mg Take 1 [facility] (BENTYL) [...] as needed for Pain (scale 4-6). dicyclomine 2017- Yes 10mg Take 1 [facility] (BENTYL) [...] as needed for Pain (scale 4-6). dicyclomine 2017- Yes 10mg Take 1 [facility] (BENTYL) 10 0-05 capsule by it y of mg capsule 00:00: mouth 4 [place] 00 (four) Medical times Branch daily. traMADOL 50 2017-09 Yes 50mg Take 1 [facility] mg tablet 0-05 tablet by ity o f 00:00: mouth [place] 00 every 6 Medical (six) Branch hours as needed for Pain (scale 4-6). dicyclomine 2017- Yes 10mg Take 1 [facility] (BENTYL) 10 0-05 capsule by it y of mg capsule 00:00: mouth 4 [place] 00 (four) Medical times Branch daily. traMADOL 50 2017-09 Yes 50mg Take 1 [facility] mg tablet 0-05 tablet by ity o f 00:00: mouth [place] 00 every 6 Medical (six) Branch hours as needed for Pain (scale 4-6). dicyclomine 2017- Yes 10mg Take 1 [facility] (BENTYL) [...] as needed for Pain (scale 4-6). dicyclomine 2017- Yes 10mg Take 1 [facility] (BENTYL) [...] as needed for Pain (scale 4-6). dicyclomine 2017- Yes 10mg Take 1 [facility] (BENTYL) 10 0-05 capsule by it y of mg capsule 00:00: mouth 4 [place] 00 (four) Medical times Branch daily. traMADOL 50 2017-09 Yes 50mg Take 1 [facility] mg tablet 0-05 tablet by ity o f 00:00: mouth [place] 00 every 6 Medical (six) Branch hours as needed for Pain (scale 4-6). dicyclomine 2017- Yes 10mg Take 1 [facility] (BENTYL) [...] as needed for Pain (scale 4-6). dicyclomine 2017- Yes 10mg Take 1 [facility] (BENTYL) 10 0-05 capsule by it y of mg capsule 00:00: mouth 4 [place] 00 (four) Medical times Branch daily. traMADOL 50 2018- Yes 50mg Take 1 [facility] mg tablet 0-05 tablet by ity o f 00:00: mouth [place] 00 every 6 Medical (six) Branch hours as needed for Pain (scale 4-6). dicyclomine 2017- Yes 10mg Take 1 [facility] (BENTYL) 10 0-05 capsule by it y of mg capsule 00:00: mouth 4 [place] 00 (four) Medical times Branch daily. traMADOL 50 2017- Yes 50mg Take 1 [facility] mg [...] Use 1 [facility] (FLONASE) 09-19 } [facility] in ity of 50 15:14: each [place] mcg/actuati 28 nostril Medic al on nasal daily. Branch spray Indication s: 1 [facility] each Nostril BID traZODONE 2015-09 Yes 50mg Take 50 mg [facility] (DESYREL) 01 by mouth ity of 50 mg 15:14: at [place] tablet 28 bedtime. Medical Branch fluticasone 2015-09 Yes 1{spray Use 1 [facility] (FLONASE) 09-19 } [facility] in ity of 50 15:14: each [place] mcg/actuati 28 nostril Medic al on nasal daily. Branch spray Indication s: 1 [facility] each Nostril BID traZODONE 2015-09 Yes 50mg Take 50 mg [facility] (DESYREL) 09-19 by mouth ity of 50 mg 15:14: at [place] tablet 28 bedtime. Medical Branch fluticasone 2015-09 Yes 1{spray Use 1 [facility] (FLONASE) 09-19 } [facility] in ity of 50 15:14: each [place] mcg/actuati 28 nostril Medic al on nasal daily. Branch spray Indication s: 1 [facility] each Nostril BID traZODONE 2015-09 Yes 50mg Take 50 mg [facility] (DESYREL) 09-19 by mouth ity of 50 mg 15:14: at [place] tablet 28 bedtime. Medical Branch omeprazole 2015-09 Yes 40mg Take 40 mg [facility] (PRILOSEC) 09-19 by mouth ity o f 40 mg 15:14: daily. [place] capsule 27 Medical Branch omeprazole 2015-09 Yes 40mg Take 40 mg [facility] (PRILOSEC) -01 by mouth ity o f 40 mg 15:14: daily. [place] capsule 27 Medical Branch omeprazole 2015-09 Yes 40mg Take 40 mg [facility] (PRILOSEC) 1- by mouth ity o f 40 mg 15:14: daily. [place] capsule 27 Medical Branch fluticasone 2015-09 Yes 1{spray Use 1 [facility] (FLONASE) 1 } [facility] in ity of 50 10:14: each [place] mcg/actuati 28 nostril Medic al on nasal daily. Branch spray Indication s: 1 [facility] each Nostril BID traZODONE 2015-09 Yes 50mg Take 50 mg [facility] (DESYREL) 101 by mouth ity of 50 mg 10:14: at [place] tablet 28 bedtime. Medical Branch fluticasone 2015-09 Yes 1{spray Use 1 [facility] (FLONASE) 09-19 } [facility] in ity of 50 10:14: each [place] mcg/actuati 28 nostril Medic al on nasal daily. Branch spray Indication s: 1 [facility] each Nostril BID traZODONE 2015-09 Yes 50mg Take 50 mg [facility] (DESYREL) 09-19 by mouth ity of 50 mg 10:14: at [place] tablet 28 bedtime. Medical Branch fluticasone 2015-09 Yes 1{spray Use 1 [facility] (FLONASE) 09-19 } [facility] in ity of 50 10:14: each [place] mcg/actuati 28 nostril Medic al on nasal daily. Branch spray Indication s: 1 [facility] each Nostril BID traZODONE 2015-09 Yes 50mg Take 50 mg [facility] (DESYREL) 09-19 by mouth ity of 50 mg 10:14: at [place] tablet 28 bedtime. Medical Branch fluticasone 2015-09 Yes 1{spray Use 1 [facility] (FLONASE) 1 } [facility] in ity of 50 10:14: each [place] mcg/actuati 28 nostril Medic al on nasal daily. Branch spray Indication s: 1 [facility] each Nostril BID traZODONE 2015-09 Yes 50mg Take 50 mg [facility] (DESYREL) 101 by mouth ity of 50 mg 10:14: at [place] tablet 28 bedtime. Medical Branch fluticasone 2015-09 Yes 1{spray Use 1 [facility] (FLONASE) 09-19 } [facility] in ity of 50 10:14: each [place] mcg/actuati 28 nostril Medic al on nasal daily. Branch spray Indication s: 1 [facility] each Nostril BID traZODONE 2015-09 Yes 50mg Take 50 mg [facility] (DESYREL) 1-01 by mouth ity of 50 mg 10:14: at [place] tablet 28 bedtime. Medical Branch fluticasone 2015-09 Yes 1{spray Use 1 [facility] (FLONASE) 1 } [facility] in ity of 50 10:14: each [place] mcg/actuati 28 nostril Medic al on nasal daily. Branch spray Indication s: 1 [facility] each Nostril BID traZODONE 2015-09 Yes 50mg Take 50 mg [facility] (DESYREL) -01 by mouth ity of 50 mg 10:14: at [place] tablet 28 bedtime. Medical Branch fluticasone 2015-09 Yes 1{spray Use 1 [facility] (FLONASE) 09-19 } [facility] in ity of 50 10:14: each [place] mcg/actuati 28 nostril Medic al on nasal daily. Branch spray Indication s: 1 [facility] each Nostril BID traZODONE 2015-09 Yes 50mg Take 50 mg [facility] (DESYREL) 09-19 by mouth ity of 50 mg 10:14: at [place] tablet 28 bedtime. Medical Branch fluticasone 2015-09 Yes 1{spray Use 1 [facility] (FLONASE) 09-19 } [facility] in ity of 50 10:14: each [place] mcg/actuati 28 nostril Medic al on nasal daily. Branch spray Indication s: 1 [facility] each Nostril BID traZODONE 2015-09 Yes 50mg Take 50 mg [facility] (DESYREL) 1-01 by mouth ity of 50 mg 10:14: at [place] tablet 28 bedtime. Medical Branch fluticasone 2015-09 Yes 1{spray Use 1 [facility] (FLONASE) 1 } [facility] in ity of 50 10:14: each [place] mcg/actuati 28 nostril Medic al on nasal daily. Branch spray Indication s: 1 [facility] each Nostril BID traZODONE 2015-09 Yes 50mg Take 50 mg [facility] (DESYREL) 1-01 by mouth ity of 50 mg 10:14: at [place] tablet 28 bedtime. Medical Branch fluticasone 2015-09 Yes 1{spray Use 1 [facility] (FLONASE) 1 } [facility] in ity of 50 10:14: each [place] mcg/actuati 28 nostril Medic al on nasal daily. Branch spray Indication s: 1 [facility] each Nostril BID traZODONE 2015-09 Yes 50mg Take 50 mg [facility] (DESYREL) 1-01 by mouth ity of 50 mg 10:14: at [place] tablet 28 bedtime. Medical Branch fluticasone 2015-09 Yes 1{spray Use 1 [facility] (FLONASE) 09-19 } [facility] in ity of 50 10:14: each [place] mcg/actuati 28 nostril Medic al on nasal daily. Branch spray Indication s: 1 [facility] each Nostril BID traZODONE 2015-09 Yes 50mg Take 50 mg [facility] (DESYREL) 01 by mouth ity of 50 mg 10:14: at [place] tablet 28 bedtime. Medical Branch fluticasone 2015-09 Yes 1{spray Use 1 [facility] (FLONASE) 09-19 } [facility] in ity of 50 10:14: each [place] mcg/actuati 28 nostril Medic al on nasal daily. Branch spray Indication s: 1 [facility] each Nostril BID traZODONE 2015-09 Yes 50mg Take 50 mg [facility] (DESYREL) 101 by mouth ity of 50 mg 10:14: at [place] tablet 28 bedtime. Medical Branch fluticasone 2015-09 Yes 1{spray Use 1 [facility] (FLONASE) 1 } [facility] in ity of 50 10:14: each [place] mcg/actuati 28 nostril Medic al on nasal daily. Branch spray Indication s: 1 [facility] each Nostril BID traZODONE 2015-09 Yes 50mg Take 50 mg [facility] (DESYREL) 1-01 by mouth ity of 50 mg 10:14: at [place] tablet 28 bedtime. Medical Branch fluticasone 2015-09 Yes 1{spray Use 1 [facility] (FLONASE) 1 } [facility] in ity of 50 10:14: each [place] mcg/actuati 28 nostril Medic al on nasal daily. Branch spray Indication s: 1 [facility] each Nostril BID traZODONE 2015-09 Yes 50mg Take 50 mg [facility] (DESYREL) 1-01 by mouth ity of 50 mg 10:14: at [place] tablet 28 bedtime. Medical Branch fluticasone 2015-09 Yes 1{spray Use 1 [facility] (FLONASE) 1 } [facility] in ity of 50 10:14: each [place] mcg/actuati 28 nostril Medic al on nasal daily. Branch spray Indication s: 1 [facility] each Nostril BID traZODONE 2015-09 Yes 50mg Take 50 mg [facility] (DESYREL) 1-01 by mouth ity of 50 mg 10:14: at [place] tablet 28 bedtime. Medical Branch fluticasone 2015-09 Yes 1{spray Use 1 [facility] (FLONASE) 09-19 } [facility] in ity of 50 10:14: each [place] mcg/actuati 28 nostril Medic al on nasal daily. Branch spray Indication s: 1 [facility] each Nostril BID traZODONE 2015-09 Yes 50mg Take 50 mg [facility] (DESYREL) 101 by mouth ity of 50 mg 10:14: at [place] tablet 28 bedtime. Medical Branch fluticasone 2015-09 Yes 1{spray Use 1 [facility] (FLONASE) 09-19 } [facility] in ity of 50 10:14: each [place] mcg/actuati 28 nostril Medic al on nasal daily. Branch spray Indication s: 1 [facility] each Nostril BID traZODONE 2015-09 Yes 50mg Take 50 mg [facility] (DESYREL) 09-19 by mouth ity of 50 mg 10:14: at [place] tablet 28 bedtime. Medical Branch fluticasone 2015-09 Yes 1{spray Use 1 [facility] (FLONASE) 1 } [facility] in ity of 50 10:14: each [place] mcg/actuati 28 nostril Medic al on nasal daily. Branch spray Indication s: 1 [facility] each Nostril BID traZODONE 2015-09 Yes 50mg Take 50 mg [facility] (DESYREL) 1-01 by mouth ity of 50 mg 10:14: at [place] tablet 28 bedtime. Medical Branch fluticasone 2015-09 Yes 1{spray Use 1 [facility] (FLONASE) 1-01 } [facility] in ity of 50 10:14: each [place] mcg/actuati 28 nostril Medic al on nasal daily. Branch spray Indication s: 1 [facility] each Nostril BID traZODONE 2015-09 Yes 50mg Take 50 mg [facility] (DESYREL) 1-01 by mouth ity of 50 mg 10:14: at [place] tablet 28 bedtime. Medical Branch fluticasone 2015-09 Yes 1{spray Use 1 [facility] (FLONASE) 09-19 } [facility] in ity of 50 10:14: each [place] mcg/actuati 28 nostril Medic al on nasal daily. Branch spray Indication s: 1 [facility] each Nostril BID traZODONE 2015-09 Yes 50mg Take 50 mg [facility] (DESYREL) -01 by mouth ity of 50 mg 10:14: at [place] tablet 28 bedtime. Medical Branch fluticasone 2015-09 Yes 1{spray Use 1 [facility] (FLONASE) 09-19 } [facility] in ity of 50 10:14: each [place] mcg/actuati 28 nostril Medic al on nasal daily. Branch spray Indication s: 1 [facility] each Nostril BID traZODONE 2015-09 Yes 50mg Take 50 mg [facility] (DESYREL) 09-19 by mouth ity of 50 mg 10:14: at [place] tablet 28 bedtime. Medical Branch fluticasone 2015-09 Yes 1{spray Use 1 [facility] (FLONASE) 09-19 } [facility] in ity of 50 10:14: each [place] mcg/actuati 28 nostril Medic al on nasal daily. Branch spray Indication s: 1 [facility] each Nostril BID traZODONE 2015-09 Yes 50mg Take 50 mg [facility] (DESYREL) 1-01 by mouth ity of 50 mg 10:14: at [place] tablet 28 bedtime. Medical Branch fluticasone 2015-09 Yes 1{spray Use 1 [facility] (FLONASE) 09-19 } [facility] in ity of 50 10:14: each [place] mcg/actuati 28 nostril Medic al on nasal daily. Branch spray Indication s: 1 [facility] each Nostril BID traZODONE 2015-09 Yes 50mg Take 50 mg [facility] (DESYREL) 1-01 by mouth ity of 50 mg 10:14: at [place] tablet 28 bedtime. Medical Branch fluticasone 2015-09 Yes 1{spray Use 1 [facility] (FLONASE) 1 } [facility] in ity of 50 10:14: each [place] mcg/actuati 28 nostril Medic al on nasal daily. Branch spray Indication s: 1 [facility] each Nostril BID traZODONE 2015-09 Yes 50mg Take 50 mg [facility] (DESYREL) 1-01 by mouth ity of 50 mg 10:14: at [place] tablet 28 bedtime. Medical Branch fluticasone 2015-09 Yes 1{spray Use 1 [facility] (FLONASE) 09-19 } [facility] in ity of 50 10:14: each [place] mcg/actuati 28 nostril Medic al on nasal daily. Branch spray Indication s: 1 [facility] each Nostril BID traZODONE 2015-09 Yes 50mg Take 50 mg [facility] (DESYREL) 01 by mouth ity of 50 mg 10:14: at [place] tablet 28 bedtime. Medical Branch fluticasone 2015-09 Yes 1{spray Use 1 [facility] (FLONASE) 09-19 } [facility] in ity of 50 10:14: each [place] mcg/actuati 28 nostril Medic al on nasal daily. Branch spray Indication s: 1 [facility] each Nostril BID traZODONE 2015-09 Yes 50mg Take 50 mg [facility] (DESYREL) 1-01 by mouth ity of 50 mg 10:14: at [place] tablet 28 bedtime. Medical Branch fluticasone 2015-09 Yes 1{spray Use 1 [facility] (FLONASE) 1 } [facility] in ity of 50 10:14: each [place] mcg/actuati 28 nostril Medic al on nasal daily. Branch spray Indication s: 1 [facility] each Nostril BID traZODONE 2015-09 Yes 50mg Take 50 mg [facility] (DESYREL) 1-01 by mouth ity of 50 mg 10:14: at [place] tablet 28 bedtime. Medical Branch fluticasone 2015-09 Yes 1{spray Use 1 [facility] (FLONASE) 1- } [facility] in ity of 50 10:14: each [place] mcg/actuati 28 nostril Medic al on nasal daily. Branch spray Indication s: 1 [facility] each Nostril BID traZODONE 2015-09 Yes 50mg Take 50 mg [facility] (DESYREL) 09-19 by mouth ity of 50 mg 10:14: at [place] tablet 28 bedtime. Medical Branch fluticasone 2015-09 Yes 1{spray Use 1 [facility] (FLONASE) 09-19 } [facility] in ity of 50 10:14: each [place] mcg/actuati 28 nostril Medic al on nasal daily. Branch spray Indication s: 1 [facility] each Nostril BID traZODONE 2015-09 Yes 50mg Take 50 mg [facility] (DESYREL) 09-19 by mouth ity of 50 mg 10:14: at [place] tablet 28 bedtime. Medical Branch fluticasone 2015-09 Yes 1{spray Use 1 [facility] (FLONASE) 09-19 } [facility] in ity of 50 10:14: each [place] mcg/actuati 28 nostril Medic al on nasal daily. Branch spray Indication s: 1 [facility] each Nostril BID traZODONE 2015-09 Yes 50mg Take 50 mg [facility] (DESYREL) 09-19 by mouth ity of 50 mg 10:14: at [place] tablet 28 bedtime. Medical Branch fluticasone 2015-09 Yes 1{spray Use 1 [facility] (FLONASE) 09-19 } [facility] in ity of 50 10:14: each [place] mcg/actuati 28 nostril Medic al on nasal daily. Branch spray Indication s: 1 [facility] each Nostril BID traZODONE 2015-09 Yes 50mg Take 50 mg [facility] (DESYREL) 09-19 by mouth ity of 50 mg 10:14: at [place] tablet 28 bedtime. Medical Branch fluticasone 2015-09 Yes 1{spray Use 1 [facility] (FLONASE) 09-19 } [facility] in ity of 50 10:14: each [place] mcg/actuati 28 nostril Medic al on nasal daily. Branch spray Indication s: 1 [facility] each Nostril BID traZODONE 2015-09 Yes 50mg Take 50 mg [facility] (DESYREL) 09-19 by mouth ity of 50 mg 10:14: at [place] tablet 28 bedtime. Medical Branch fluticasone 2015-09 Yes 1{spray Use 1 [facility] (FLONASE) 09-19 } [facility] in ity of 50 10:14: each [place] mcg/actuati 28 nostril Medic al on nasal daily. Branch spray Indication s: 1 [facility] each Nostril BID traZODONE 2015-09 Yes 50mg Take 50 mg [facility] (DESYREL) 1-01 by mouth ity of 50 mg 10:14: at [place] tablet 28 bedtime. Medical Branch fluticasone 2015-09 Yes 1{spray Use 1 [facility] (FLONASE) 09-19 } [facility] in ity of 50 10:14: each [place] mcg/actuati 28 nostril Medic al on nasal daily. Branch spray Indication s: 1 [facility] each Nostril BID traZODONE 2015-09 Yes 50mg Take 50 mg [facility] (DESYREL) 01 by mouth ity of 50 mg 10:14: at [place] tablet 28 bedtime. Medical Branch fluticasone 2015-09 Yes 1{spray Use 1 [facility] (FLONASE) 09-19 } [facility] in ity of 50 10:14: each [place] mcg/actuati 28 nostril Medic al on nasal daily. Branch spray Indication s: 1 [facility] each Nostril BID traZODONE 2015-09 Yes 50mg Take 50 mg [facility] (DESYREL) 09-19 by mouth ity of 50 mg 10:14: at [place] tablet 28 bedtime. Medical Branch fluticasone 2015-09 Yes 1{spray Use 1 [facility] (FLONASE) 09-19 } [facility] in ity of 50 10:14: each [place] mcg/actuati 28 nostril Medic al on nasal daily. Branch spray Indication s: 1 [facility] each Nostril BID traZODONE 2015-09 Yes 50mg Take 50 mg [facility] (DESYREL) 101 by mouth ity of 50 mg 10:14: at [place] tablet 28 bedtime. Medical Branch fluticasone 2015-09 Yes 1{spray Use 1 [facility] (FLONASE) 09-19 } [facility] in ity of 50 10:14: each [place] mcg/actuati 28 nostril Medic al on nasal daily. Branch spray Indication s: 1 [facility] each Nostril BID traZODONE 2015-09 Yes 50mg Take 50 mg [facility] (DESYREL) 1-01 by mouth ity of 50 mg 10:14: at [place] tablet 28 bedtime. Medical Branch fluticasone 2015-09 Yes 1{spray Use 1 [facility] (FLONASE) 1 } [facility] in ity of 50 10:14: each [place] mcg/actuati 28 nostril Medic al on nasal daily. Branch spray Indication s: 1 [facility] each Nostril BID traZODONE 2015-09 Yes 50mg Take 50 mg [facility] (DESYREL) 1-01 by mouth ity of 50 mg 10:14: at [place] tablet 28 bedtime. Medical Branch fluticasone 2015-09 Yes 1{spray Use 1 [facility] (FLONASE) 09-19 } [facility] in ity of 50 10:14: each [place] mcg/actuati 28 nostril Medic al on nasal daily. Branch spray Indication s: 1 [facility] each Nostril BID traZODONE 2015-09 Yes 50mg Take 50 mg [facility] (DESYREL) 01 by mouth ity of 50 mg 10:14: at [place] tablet 28 bedtime. Medical Branch fluticasone 2015-09 Yes 1{spray Use 1 [facility] (FLONASE) 09-19 } [facility] in ity of 50 10:14: each [place] mcg/actuati 28 nostril Medic al on nasal daily. Branch spray Indication s: 1 [facility] each Nostril BID traZODONE 2015-09 Yes 50mg Take 50 mg [facility] (DESYREL) 101 by mouth ity of 50 mg 10:14: at [place] tablet 28 bedtime. Medical Branch fluticasone 2015-09 Yes 1{spray Use 1 [facility] (FLONASE) 09-19 } [facility] in ity of 50 10:14: each [place] mcg/actuati 28 nostril Medic al on nasal daily. Branch spray Indication s: 1 [facility] each Nostril BID traZODONE 2015-09 Yes 50mg Take 50 mg [facility] (DESYREL) 1-01 by mouth ity of 50 mg 10:14: at [place] tablet 28 bedtime. Medical Branch fluticasone 2015-09 Yes 1{spray Use 1 [facility] (FLONASE) 1 } [facility] in ity of 50 10:14: each [place] mcg/actuati 28 nostril Medic al on nasal daily. Branch spray Indication s: 1 [facility] each Nostril BID traZODONE 2015-09 Yes 50mg Take 50 mg [facility] (DESYREL) 01 by mouth ity of 50 mg 10:14: at [place] tablet 28 bedtime. Medical Branch fluticasone 2015-09 Yes 1{spray Use 1 [facility] (FLONASE) 09-19 } [facility] in ity of 50 10:14: each [place] mcg/actuati 28 nostril Medic al on nasal daily. Branch spray Indication s: 1 [facility] each Nostril BID traZODONE 2015-09 Yes 50mg Take 50 mg Un michele (DESYREL) 09-19 by mouth ity of 50 mg 10:14: at [place] tablet 28 bedtime. Medical Branch fluticasone 2015-09 Yes 1{spray Use 1 Un michele (FLONASE) 09-19 } [facility] in ity of 50 10:14: each [place] mcg/actuati 28 nostril Medic al on nasal daily. Branch spray Indication s: 1 [facility] each Nostril BID traZODONE 2015-09 Yes 50mg Take 50 mg Un michele (DESYREL) 09-19 by mouth ity of 50 mg 10:14: at [place] tablet 28 bedtime. Medical Branch fluticasone 2015-09 Yes 1{spray Use 1 Un michele (FLONASE) 09-19 } [facility] in ity of 50 10:14: each [place] mcg/actuati 28 nostril Medic al on nasal daily. Branch spray Indication s: 1 [facility] each Nostril BID traZODONE 2015-09 Yes 50mg Take 50 mg Un michele (DESYREL) 09-19 by mouth ity of 50 mg 10:14: at [place] tablet 28 bedtime. Medical Branch fluticasone 2015-09 Yes 1{spray Use 1 Un michele (FLONASE) 09-19 } [facility] in ity of 50 10:14: each [place] mcg/actuati 28 nostril Medic al on nasal daily. Branch spray Indication s: 1 [facility] each Nostril BID traZODONE 2015-09 Yes 50mg Take 50 mg Un michele (DESYREL) 01 by mouth ity of 50 mg 10:14: at [place] tablet 28 bedtime. Medical Branch fluticasone 2015-09 Yes 1{spray Use 1 Un michele (FLONASE) 09-19 } [facility] in ity of 50 10:14: each [place] mcg/actuati 28 nostril Medic al on nasal daily. Branch spray Indication s: 1 [facility] each Nostril BID traZODONE 2015-09 Yes 50mg Take 50 mg Un michele (DESYREL) 1-01 by mouth ity of 50 mg 10:14: at [place] tablet 28 bedtime. Medical Branch fluticasone 2015-09 Yes 1{spray Use 1 Un michele (FLONASE) 1 } [facility] in ity of 50 10:14: each [place] mcg/actuati 28 nostril Medic al on nasal daily. Branch spray Indication s: 1 [facility] each Nostril BID traZODONE 2015-09 Yes 50mg Take 50 mg Un michele (DESYREL) 1-01 by mouth ity of 50 mg 10:14: at [place] tablet 28 bedtime. Medical Branch fluticasone 2015-09 Yes 1{spray Use 1 Un michele (FLONASE) 09-19 } [facility] in ity of 50 10:14: each [place] mcg/actuati 28 nostril Medic al on nasal daily. Branch spray Indication s: 1 [facility] each Nostril BID traZODONE 2015-09 Yes 50mg Take 50 mg Un michele (DESYREL) 01 by mouth ity of 50 mg 10:14: at [place] tablet 28 bedtime. Medical Branch fluticasone 2015-09 Yes 1{spray Use 1 Un michele (FLONASE) 09-19 } [facility] in ity of 50 10:14: each [place] mcg/actuati 28 nostril Medic al on nasal daily. Branch spray Indication s: 1 [facility] each Nostril BID traZODONE 2015-09 Yes 50mg Take 50 mg Un michele (DESYREL) 1-01 by mouth ity of 50 mg 10:14: at [place] tablet 28 bedtime. Medical Branch fluticasone 2015-09 Yes 1{spray Use 1 Un michele (FLONASE) 1 } [facility] in ity of 50 10:14: each [place] mcg/actuati 28 nostril Medic al on nasal daily. Branch spray Indication s: 1 [facility] each Nostril BID traZODONE 2015-09 Yes 50mg Take 50 mg Un michele (DESYREL) 1-01 by mouth ity of 50 mg 10:14: at [place] tablet 28 bedtime. Medical Branch fluticasone 2015-09 Yes 1{spray Use 1 Un michele (FLONASE) 09-19 } [facility] in ity of 50 10:14: each [place] mcg/actuati 28 nostril Medic al on nasal daily. Branch spray Indication s: 1 [facility] each Nostril BID traZODONE 2015-09 Yes 50mg Take 50 mg Un michele (DESYREL) 1-01 by mouth ity of 50 mg 10:14: at [place] tablet 28 bedtime. Medical Branch fluticasone 2015-09 Yes 1{spray Use 1 Un michele (FLONASE) 09-19 } [facility] in ity of 50 10:14: each [place] mcg/actuati 28 nostril Medic al on nasal daily. Branch spray Indication s: 1 [facility] each Nostril BID traZODONE 2015-09 Yes 50mg Take 50 mg Un michele (DESYREL) 01 by mouth ity of 50 mg 10:14: at [place] tablet 28 bedtime. Medical Branch fluticasone 2015-09 Yes 1{spray Use 1 Un michele (FLONASE) 09-19 } [facility] in ity of 50 10:14: each [place] mcg/actuati 28 nostril Medic al on nasal daily. Branch spray Indication s: 1 [facility] each Nostril BID traZODONE 2015-09 Yes 50mg Take 50 mg Un michele (DESYREL) 101 by mouth ity of 50 mg 10:14: at [place] tablet 28 bedtime. Medical Branch fluticasone 2015-09 Yes 1{spray Use 1 Un michele (FLONASE) 09-19 } [facility] in ity of 50 10:14: each [place] mcg/actuati 28 nostril Medic al on nasal daily. Branch spray Indication s: 1 [facility] each Nostril BID traZODONE 2015-09 Yes 50mg Take 50 mg Un michele (DESYREL) 1-01 by mouth ity of 50 mg 10:14: at [place] tablet 28 bedtime. Medical Branch fluticasone 2015-09 Yes 1{spray Use 1 Un michele (FLONASE) 1 } [facility] in ity of 50 10:14: each [place] mcg/actuati 28 nostril Medic al on nasal daily. Branch spray Indication s: 1 [facility] each Nostril BID traZODONE 2015-09 Yes 50mg Take 50 mg Un michele (DESYREL) 1-01 by mouth ity of 50 mg 10:14: at [facility] 28 bedtime. Medical Branch omeprazole 2015-09 Yes 40mg Take 40 mg U nivers (PRILOSEC) 1-01 by mouth ity o f 40 mg 10:14: daily. [place] [id number] [facility] [place] omeprazole 2015-09 Yes 40mg Take 40 mg U nivers (PRILOSEC) 1-01 by mouth ity o f 40 mg 10:14: daily. [place] [address] Medical Branch omeprazole 2015-09 Yes 40mg Take 40 mg U nivers (PRILOSEC) 1-01 by mouth ity o f 40 mg 10:14: daily. [place] [address] Medical Branch omeprazole 2015-09 Yes 40mg Take 40 mg U nivers (PRILOSEC) 1-01 by mouth ity o f 40 mg 10:14: daily. [place] [address] [facility] [place] omeprazole 2015-09 Yes 40mg Take 40 mg U nivers (PRILOSEC) 1-01 by mouth ity o f 40 mg 10:14: daily. [place] [address] Medical Branch omeprazole 2015-09 Yes 40mg Take 40 mg U nivers (PRILOSEC) 1-01 by mouth ity o f 40 mg 10:14: daily. [place] [address] Medical Branch omeprazole 2015-09 Yes 40mg Take 40 mg U nivers (PRILOSEC) 1-01 by mouth ity o f 40 mg 10:14: daily. [place] [address] [facility] [place] omeprazole 2015-09 Yes 40mg Take 40 mg U nivers (PRILOSEC) 1-01 by mouth ity o f 40 mg 10:14: daily. [place] [address] Medical Branch omeprazole 2015-09 Yes 40mg Take 40 mg U nivers (PRILOSEC) 1-01 by mouth ity o f 40 mg 10:14: daily. [place] [address] [facility] [place] omeprazole 2015-09 Yes 40mg Take 40 mg U nivers (PRILOSEC) 1-01 by mouth ity o f 40 mg 10:14: daily. [place] [address] [facility] [place] omeprazole 2015-09 Yes 40mg Take 40 mg U nivers (PRILOSEC) 1-01 by mouth ity o f 40 mg 10:14: daily. [address] omeprazole 2015-09 Yes 40mg Take 40 mg U nivers (PRILOSEC) 1-01 by mouth ity o f 40 mg 10:14: daily. [address] omeprazole 2015-09 Yes 40mg Take 40 mg U nivers (PRILOSEC) 1-01 by mouth ity o f 40 mg 10:14: daily. [address] omeprazole 2015-09 Yes 40mg Take 40 mg U nivers (PRILOSEC) 1-01 by mouth ity o f 40 mg 10:14: daily. [address] omeprazole 2015-09 Yes 40mg Take 40 mg U nivers (PRILOSEC) 1-01 by mouth ity o f 40 mg 10:14: daily. [address] omeprazole 2015-09 Yes 40mg Take 40 mg U nivers (PRILOSEC) 1- by mouth ity o f 40 mg 10:14: daily. [address] omeprazole 2015-09 Yes 40mg Take 40 mg U nivers (PRILOSEC) 1-01 by mouth ity o f 40 mg 10:14: daily. [address] omeprazole 2015-09 Yes 40mg Take 40 mg U nivers (PRILOSEC) 1- by mouth ity o f 40 mg 10:14: daily. [address] omeprazole 2015-09 Yes 40mg Take 40 mg U nivers (PRILOSEC) 1-01 by mouth ity o f 40 mg 10:14: daily. [address] omeprazole 2015-09 Yes 40mg Take 40 mg U nivers (PRILOSEC) 1-01 by mouth ity o f 40 mg 10:14: daily. [address] omeprazole 2015-09 Yes 40mg Take 40 mg U nivers (PRILOSEC) 1-01 by mouth ity o f 40 mg 10:14: daily. [address] omeprazole 2015-09 Yes 40mg Take 40 mg U nivers (PRILOSEC) 1-01 by mouth ity o f 40 mg 10:14: daily. [address] omeprazole 2015-09 Yes 40mg Take 40 mg U nivers (PRILOSEC) 1-01 by mouth ity o f 40 mg 10:14: daily. [address] omeprazole 2015- Yes 40mg Take 40 mg U nivers (PRILOSEC) 1-01 by mouth ity o f 40 mg 10:14: daily. [address] omeprazole 2015-09 Yes 40mg Take 40 mg U nivers (PRILOSEC) 1-01 by mouth ity o f 40 mg 10:14: daily. [address] omeprazole 2015-09 Yes 40mg Take 40 mg U nivers (PRILOSEC) 1-01 by mouth ity o f 40 mg 10:14: daily. [address] Branch omeprazole 2015-09 Yes 40mg Take 40 mg U nivers (PRILOSEC) 1- by mouth ity o f 40 mg 10:14: daily. [address] Branch omeprazole 2015-09 Yes 40mg Take 40 mg U nivers (PRILOSEC) 1- by mouth ity o f 40 mg 10:14: daily. [address] omeprazole 2015-09 Yes 40mg Take 40 mg U nivers (PRILOSEC) 1-01 by mouth ity o f 40 mg 10:14: daily. [address] Branch omeprazole 2015-09 Yes 40mg Take 40 mg U nivers (PRILOSEC) 1- by mouth ity o f 40 mg 10:14: daily. [address] omeprazole 2015-09 Yes 40mg Take 40 mg U nivers (PRILOSEC) 1- by mouth ity o f 40 mg 10:14: daily. [address] omeprazole 2015-09 Yes 40mg Take 40 mg U nivers (PRILOSEC) 1-01 by mouth ity o f 40 mg 10:14: daily. [address] omeprazole 2015-09 Yes 40mg Take 40 mg U nivers (PRILOSEC) 1-01 by mouth ity o f 40 mg 10:14: daily. [address] omeprazole 2015- Yes 40mg Take 40 mg U nivers (PRILOSEC) 1-01 by mouth ity o f 40 mg 10:14: daily. [address] omeprazole 2015-09 Yes 40mg Take 40 mg U nivers (PRILOSEC) 1-01 by mouth ity o f 40 mg 10:14: daily. [address] omeprazole 2015-09 Yes 40mg Take 40 mg U nivers (PRILOSEC) 1-01 by mouth ity o f 40 mg 10:14: daily. [address] omeprazole 2015-09 Yes 40mg Take 40 mg U nivers (PRILOSEC) 1-01 by mouth ity o f 40 mg 10:14: daily. [address] omeprazole 2015-09 Yes 40mg Take 40 mg U nivers (PRILOSEC) 1-01 by mouth ity o f 40 mg 10:14: daily. [address] omeprazole 2015-09 Yes 40mg Take 40 mg U nivers (PRILOSEC) 1- by mouth ity o f 40 mg 10:14: daily. [address] omeprazole 2015-09 Yes 40mg Take 40 mg U nivers (PRILOSEC) 1- by mouth ity o f 40 mg 10:14: daily. [address] omeprazole 2015-09 Yes 40mg Take 40 mg U nivers (PRILOSEC) 1-01 by mouth ity o f 40 mg 10:14: daily. [address] omeprazole 2015-09 Yes 40mg Take 40 mg U nivers (PRILOSEC) 1- by mouth ity o f 40 mg 10:14: daily. [address] omeprazole 2015-09 Yes 40mg Take 40 mg U nivers (PRILOSEC) 1- by mouth ity o f 40 mg 10:14: daily. [address] omeprazole 2015-09 Yes 40mg Take 40 mg U nivers (PRILOSEC) 1-01 by mouth ity o f 40 mg 10:14: daily. [address] omeprazole 2015-09 Yes 40mg Take 40 mg U nivers (PRILOSEC) 1-01 by mouth ity o f 40 mg 10:14: daily. [address] omeprazole 2015-09 Yes 40mg Take 40 mg U nivers (PRILOSEC) 1-01 by mouth ity o f 40 mg 10:14: daily. [address] omeprazole 2015-09 Yes 40mg Take 40 mg U nivers (PRILOSEC) 1-01 by mouth ity o f 40 mg 10:14: daily. [address] omeprazole 2015-09 Yes 40mg Take 40 mg U nivers (PRILOSEC) 1-01 by mouth ity o f 40 mg 10:14: daily. [address] omeprazole 2015-09 Yes 40mg Take 40 mg U nivers (PRILOSEC) 1-01 by mouth ity o f 40 mg 10:14: daily. [address] omeprazole 2015-09 Yes 40mg Take 40 mg U nivers (PRILOSEC) 1-01 by mouth ity o f 40 mg 10:14: daily. [address] omeprazole 2015-09 Yes 40mg Take 40 mg U nivers (PRILOSEC) 1-01 by mouth ity o f 40 mg 10:14: daily. [address] omeprazole 2015-09 Yes 40mg Take 40 mg U nivers (PRILOSEC) 1-01 by mouth ity o f 40 mg 10:14: daily. [address] omeprazole 2015-09 Yes 40mg Take 40 mg U nivers (PRILOSEC) 1-01 by mouth ity o f 40 mg 10:14: daily. [address] omeprazole 2015-09 Yes 40mg Take 40 mg U nivers (PRILOSEC) 1-01 by mouth ity o f 40 mg 10:14: daily. [address] omeprazole 2015-09 Yes 40mg Take 40 mg U nivers (PRILOSEC) 1-01 by mouth ity o f 40 mg 10:14: daily. [address] omeprazole 2015-09 Yes 40mg Take 40 mg U nivers (PRILOSEC) 1-01 by mouth ity o f 40 mg 10:14: daily. [address] lisinopril 2015-09 Yes 20mg Take 1 Unive [...] 00 (two) Medical times Branch daily. lisinopril 2015- Yes 20mg Take 1 Unive rs (PRINIVIL,Z [...] 00 (two) Medical times Branch daily. lisinopril 2015- Yes 20mg Take 1 Unive rs (PRINIVIL,Z 1-01 tablet by ity of [place] 20 [place] (two) Medical times Branch daily. lisinopril 2015- Yes 20mg Take 1 Unive rs (PRINIVIL,Z [...] 00 (two) Medical times Branch daily. lisinopril 2015- Yes 20mg Take 1 Unive rs (PRINIVIL,Z [...] 00 (two) Medical times Branch daily. lisinopril 2015- Yes 20mg Take 1 Unive rs (PRINIVIL,Z [...] tablet 00 (two) Medical times Branch daily. Vital Signs Vital Name Observation Time Observation Value Comments Source Systolic blood 2023-03-16 14:53:00 155 mm[Hg] Univer sity of pressure [facility] Diastolic blood 2023-03-16 14:53:00 91 mm[Hg] Unive rsity of [facility] Heart rate 2023-03-16 14:49:00 60 /min Universi ty of [facility] Respiratory rate 2023-03-16 14:49:00 18 /min Univ ersity of [facility] Branch Body height 2023-03-16 14:49:00 154.9 cm Universi ty of [facility] Body weight 2023-03-16 14:49:00 74.617 kg Universi ty of [facility] BMI 2023-03-16 14:49:00 31.08 kg/m2 Universi ty [facility] Oxygen saturation in 2023-03-16 14:49:00 92 /min University of Arterial blood by [place] [facility] shahla Pulse oximetry Branch Systolic blood 2020-10-11 00:00:00 106 mm[Hg] Univer sity of [facility] Diastolic blood 2020-10-11 00:00:00 74 mm[Hg] Unive rsity of [facility] Heart rate 2020-10-11 00:00:00 63 /min Universi ty of [facility] Respiratory rate 2020-10-11 00:00:00 16 /min Univ ersity of [facility] Oxygen saturation in 2020-10-11 00:00:00 98 /min University of Arterial blood by [place] [facility] shahla Pulse oximetry Branch Body temperature 2020-10-10 21:35:00 37.11 Luisa Univ ersity of [facility] Branch Body height 2020-10-10 21:35:00 157.5 cm [facility]i ty [facility] [place] [facility] [place] Body weight 2020-10-10 21:35:00 77.111 kg [facility]i [facility] [place] [facility] BMI 2020-10-10 21:35:00 31.09 kg/m2 Universi ty [facility] Systolic blood 2020-10-11 00:00:00 106 mm[Hg] Univer sity of [facility] Diastolic blood 2020-10-11 00:00:00 74 mm[Hg] Unive rsity of pressure [place] [facility] Heart rate 2020-10-11 00:00:00 63 /min [facility]i [facility] [place] [facility] Respiratory rate 2020-10-11 00:00:00 16 /min Univ ersity [facility] [place] [facility] Oxygen saturation in 2020-10-11 00:00:00 98 /min University of Arterial blood by [facility] Pulse oximetry Branch Body temperature 2020-10-10 21:35:00 37.11 Luisa [facility] [place] [facility] Body height 2020-10-10 21:35:00 157.5 cm [facility]i [facility] [place] [facility] Body weight 2020-10-10 21:35:00 77.111 kg [facility] [place] [facility] BMI 2020-10-10 21:35:00 31.09 kg/m2 [facility] [place] [facility] Systolic blood 2020-05-16 06:00:00 163 mm[Hg] Univer sity of pressure [place] [facility] Diastolic blood 2020-05-16 06:00:00 74 mm[Hg] Unive rsity of pressure [place] [facility] Heart rate 2020-05-16 06:00:00 64 /min [facility] [place] [facility] Respiratory rate 2020-05-16 06:00:00 20 /min Univ [facility] [place] [facility] Oxygen saturation in 2020-05-16 06:00:00 98 /min University of Arterial blood by [facility] Pulse oximetry Branch Body temperature 2020-05-16 02:44:00 37.22 Luisa [facility] [place] [facility] Body height 2020-05-16 02:44:00 152.4 cm [facility] [place] [facility] Body weight 2020-05-16 02:44:00 77.111 kg [facility] [place] [facility] BMI 2020-05-16 02:44:00 33.20 kg/m2 [facility] [place] [facility] Systolic blood 2020-05-16 06:00:00 163 mm[Hg] Univer sity of pressure [place] [facility] Diastolic blood 2020-05-16 06:00:00 74 mm[Hg] Unive rsity of pressure [place] [facility] Heart rate 2020-05-16 06:00:00 64 /min [facility] [place] [facility] Respiratory rate 2020-05-16 06:00:00 20 /min [facility] Oxygen saturation in 2020-05-16 06:00:00 98 /min [facility] Arterial blood by [facility] Pulse oximetry [place] Body temperature 2020-05-16 02:44:00 37.22 Luisa [facility] Body height 2020-05-16 02:44:00 152.4 cm [facility] Body weight 2020-05-16 02:44:00 77.111 kg [facility] BMI 2020-05-16 02:44:00 33.20 kg/m2 [facility] acute hospital Procedures Procedure Date / Time Performed Performing Clinician Mike e SLEEP STUDY DATA 2023-05-03 05:01:00 Doctor Unassigned, No [facility] REPORT Name [facility] 2023-02-02 05:01:00 Doctor Unassigned, No [facility] NOTES/CONSULTS Name [facility] [place] REFERRAL- 2022-12-22 05:01:00 Doctor Unassigned, No [facility] REQUEST/RESPONSE Name [facility] ASSIGNMENT OF BENEFITS 2022-09-29 15:29:59 Doctor Unassigned, No [facility] Name Medical Branch REFERRAL- 2022-09-02 06:01:00 Doctor Unassigned, No [facility] REQUEST/RESPONSE Name [facility] EXTERNAL PROVIDER - 2021-03-20 05:01:00 Doctor Unassigned, No [facility] ADC REFERRAL Name Medical Branch LIPASE 2020-10-10 23:18:00 [facility] 2020-10-10 23:18:00 Anabela Hollingsworth [facility] ([id number]) [facility] (ALB,T.PRO,BILI T,BU/BC,ALT,AST,ALK PHOS) BASIC METABOLIC PANEL 2020-10-10 23:18:00 HollingsworthAnabela sanchez [facility] (NA, K, CL, CO2, Medical Branch GLUCOSE, BUN, CREATININE, CA) CBC WITH DIFF 2020-10-10 23:18:00 [facility] 2020-10-10 23:04:00 [facility] PELVIS WO 2020-10-10 22:23:01 Anabela Hollingsworth [facility] CONTRAST Medical Branch NOTICE OF PRIVACY 2020-10-10 21:29:06 [facility] CONSENT/REFUSAL FOR 2020-10-10 21:28:36 Doctor Unassigned, No [facility] [place] DIAGNOSIS AND Name Medical Branch TREATMENT EKG-12 LEAD 2020-05-16 05:28:45 Margaret Pembetron [facility] LIPASE 2020-05-16 04:35:00 Margaret Pemberton [facility] TROPONIN I 2020-05-16 04:35:00 Margaret Pemberton [facility] COMP. METABOLIC PANEL 2020-05-16 04:35:00 Margaret Pemberton [facility] ([id number]) Medical Branch CBC WITH DIFF 2020-05-16 04:35:00 Margaret Pemberton [facility] COVID-19 (ID NOW RAPID 2020-05-16 04:35:00 Margaret Pemberton [facility] TESTING) Medical Branch XR CHEST 1 VW 2020-05-16 04:16:00 Margaret Pemberton [facility] URINALYSIS 2020-05-16 03:08:00 Shreyas Mota [facility] NOTICE OF PRIVACY 2020-05-16 02:35:16 [facility]igned, No [facility] CONSENT/REFUSAL FOR 2020-05-16 02:34:46 Doctor Unassigned, No [facility] [place] DIAGNOSIS AND Name Medical Branch TREATMENT Encounters Start End Encounter Admission Attending Care Care Encounter Source Date/Time Date/Time Type Type Clinicians Facility Department ID 2023-02-16 Outpatient [facility] [id number] [place] 16:30:48 [id number] [facility] 2022-10-07 Outpatient [facility] [id number] [place] 08:55:29 [id number] [facility] 2022-08-31 Outpatient [facility] [id number] [place] 07:51:11 [id number] [facility] 2022-08-10 Outpatient [facility] [id number] [place] 10:50:36 [id number] [facility] 2022-04-14 Outpatient DAGO [facility] [id number] [place] 07:54:13 [facility] [id number] [facility] 2022-04-13 Outpatient DAGO [facility] [id number] [place] 10:22:44 [facility] [id number] [facility] 2022-03-24 Outpatient [facility] [id number] [place] 15:48:13 [id number] [facility] 2022-02-24 Outpatient [facility] [id number] [place] 15:21:[id number] [place] [address] 2022-02-23 Outpatient DAGO [facility] [id number] [place] 12:34:09 [facility] [id number] [facility] 2021-07-18 Emergency [facility] [id number] [facility] [id number] Univers 14:37:11 [facility] 2023-08-10 2023-08-10 Outpatient R RICHIEMATI WARNERWALogan [facility] [id number] Univers 11:30:00 11:30:00 MATI ARRIAGAWALogan [facility] 2023-07-29 2023-07-29 Outpatient R MATI ARRIAGAWALogan [facility] [id number] Univers 20:00:00 20:00:00 [facility] 2023-06-07 2023-06-07 Outpatient R KERRI PINA [facility] [id number] Univers 09:30:00 10:13:36 KERRI PINA [facility] 2023-06-07 2023-06-07 Ancillary Veronica Medina [facility] [id number] Univers 09:30:00 10:13:36 Visit Kerri Pina [id number] [facility] [id number] Ghazal BROTHERS [id number] [address] 2023-06-06 2023-06-06 Outpatient SFA SFA [id number] Kelvin 18:51:35 18:51:35 0918 F Mio 2023-05-26 2023-05-26 Ancillary Yaneth Buckley [facility] 1.2. [id number] Univers 09:30:00 10:14:41 Visit Kerri Pina KIRBY [id number] [facility] [id number] [id number] [place] [facility] [address] [facility] 2023-05-24 2023-05-24 Ancillary Yaneth Buckley [facility] 1.2. [id number] Univers 08:45:00 09:30:00 Visit Kerri Pina KIRBY [id number] [facility] [id number] [id number] [facility] [facility] [address] [facility] 2023-05-16 2023-05-16 Outpatient R YOVANI [facility] [id number] [facility] [place] 09:15:00 09:59:09 [facility] 2023-05-16 2023-05-16 Ancillary Bel Dominguez [facility] [id number]. [id number] [facility] [place] 09:15:00 09:59:09 Visit PinaKerri mcwilliams [place] ORR [id number] ity of [id number] [id number] [facility] [address] [facility] 2023-05-03 2023-05-03 Environmental Studies Program Director 1, [facility] Sleep Lab Bed [facility] 1. [id number] Univers 20:00:00 22:30:00 Visit Romie Arriaga [id number]. 10 [facility] [id number] [id number] [address] 2023-05-03 2023-05-03 Outpatient R ROMIE ARRIAGA [facility] [id number] Univers 20:00:00 20:00:00 ROMIE ARRIAGA itjeferson [facility] 2023-05-03 2023-05-03 Orders Doctor STEVENS [id number] Univers 00:00:00 00:00:00 Only Unassigned, HILARY [id number] ity of [facility] [id number] Yifan as [id number] [facility] 009 [place] 2023-04-11 2023-04-11 Outpatient SFA SFA [id number] Kel[place] 11:21:25 11:21:25 0724 [facility] [place] 2023-04-08 2023-04-08 Outpatient SFA SFA [id number] [place] 15:21:49 15:21:49 0721 F [place] 2023-03-30 2023-03-30 Outpatient SFA SFA [id number] Kel[place] 15:42:45 15:42:45 0712 F [place] 2023-03-16 2023-03-16 Office Corina [facility] [id number] Univers 10:00:00 10:30:00 Visit Romie ORR [id number] ity of [place] [id number] [id number] [place] [facility] [facility] [place] 2023-03-16 2023-03-16 Outpatient R ROMIE ARRIAGA [facility] [place] [id number] Univers 10:00:00 10:20:44 ROMIE ARRIAGA ity of [facility] 2023-02-02 2023-02-02 Ancillary Lucille Anthony [facility] 1.2.84 0.114 [id number] Univers 09:30:00 10:09:30 Visit Kerri Pina 350.1.13.10 ity of [place] [phone] W[place] dical NAL 178 [facility] [place] 2023-02-02 2023-02-02 Orders Doctor HILDA 1.2.840.114 [id number] Univers 00:00:00 00:00:00 Only Unassigned, HILARY 350.1.13.10 ity of [facility] 4.2.7.2.686 Yifan as [id number] [address] 2023-02-01 2023-02-01 Ancillary Lucille Anthony [facility] 1.2.84 0.114 [id number] Univers 11:00:00 11:45:00 Visit Kerri Pina 350.1.13.10 ity of [place] [phone] W[place] dical NAL [address] [place] [address] 2023-01-27 2023-01-27 Outpatient R YOVANI [facility] [place] [id number] Univers 09:30:00 11:30:06 KERRI steinberg [facility] 2023-01-19 2023-01-19 Ancillary Lucille Anthony [facility] 1.2.84 0.114 [id number] [facility] 10:15:00 11:41:12 Visit Kerri Pina 350.1.13.10 [facility] [place] [phone] [address] 2023-01-17 2023-01-17 [facility] [id number] Univers 09:30:00 09:30:00 KERRIFISH steinberg [facility] 2023-01-14 2023-01-14 [facility] [id number] Univers 13:45:00 13:45:00 KERRIFISH steinberg [facility] 2023-01-14 2023-01-14 Outpatient SFA SFA [id number] 023 Kelvin 10:40:00 10:40:00 0428 [facility] 2023-01-13 2023-01-13 Ancillary Lucille Anthony [facility] 1.2.84 0.114 [id number] [facility] 10:15:00 11:14:45 Visit Kerri Pina 350.1.13.10 ity of [place] [id number] W[place] dical NAL [address] [place] [address] 2023-01-10 2023-01-10 Shekhar Anthony [facility] 1.2.840.[id number] [place] [address] 00:00:00 00:00:00 Management Lucille ORR 350.1.13.10 ity of [place] [phone] W[place] dical NAL [address] [place] [address] 2023-01-05 2023-01-05 Ancillary Anamika Anthonyissa Malathi [facility] 1.2.84 0.114 [id number] [facility] 08:45:00 09:34:29 Visit Kerri Pina 350.1.13.10 ity of [place] [phone] W[place] dic[address] 2023-01-05 2023-01-05 Outpatient R YOVANI [facility] [place] [id number] [facility] 08:45:00 09:34:29 KERRI ity of [facility] 2022-12-30 2022-12-30 Ancillary RajLucille Malathi [facility] 1.2.84 0.114 [id number] [facility] 10:15:00 11:10:52 Visit Kerri Pina 350.1.13.10 ity of [place] [phone] [place] dic[address] 2022-12-28 2022-12-28 Ancillary Lucille Anthony [facility] 1.2.84 0.114 [id number] [facility] 11:00:00 11:47:44 Visit Kerri Pina 350.1.13.10 ity of [place] [id number] [address] 2022-12-22 2022-12-22 Outpatient SFA SFA [id number] 023 Kelvin 09:50:20 09:50:20 0405 F Mio 2022-12-22 2022-12-22 Orders Doctor HILDA 1.2.840.114 [id number] [facility] 00:00:00 00:00:00 Only Unassigned, HILARY 350.1.13.10 ity of [facility] 4.2.7.2.686 Yifan as [id number] [address] 2022-12-16 2022-12-16 Ancillary Lucille Anthony [facility] 1.2.84 0.114 [id number] [facility] 10:15:00 11:33:58 Visit Kerri Pina 350.1.13.10 ity of [place] [phone] Me dical NAL [address] [facility] 2022-12-13 2022-12-13 Ancillary Lucille Anthony [facility] 1.2.84 0.114 [id number] Univers 10:15:00 11:00:00 Visit Kerri Pina 350.1.13.10 ity of [place] [phone] Me dical NAL [address] [facility] 2022-12-09 2022-12-09 Ancillary Lucille Love Glenny [facility] 1.2.840 .114 [id number] [facility] 10:15:00 11:04:07 Visit Kerri Pina 350.1.13.10 ity of [place] [phone] Me dical NAL [address] [facility] 2022-12-07 2022-12-07 Ancillary Ivan Lucille Murrieta [facility] 1.2.840 .114 [id number] Univers 10:15:00 11:12:31 Visit Kerri Pina Logan KIRBY 350.1.13.10 ity of [place] [phone] Me dical NAL [address] [facility] 2022-11-30 2022-11-30 Ancillary Stevenson Love [facility] 1.2.840. 114 [id number] Univers 10:15:00 11:00:00 Visit Kerri Pina KIRBY 350.1.13.10 ity of [place] [phone] Me dical NAL [address] [facility] 2022-11-30 2022-11-30 Ancillary Raj Lucille Servin [facility] 1.2.84 0.114 [id number] Univers 09:30:00 10:21:41 Visit Kerri Pina 350.1.13.10 ity of [place] [phone] Me dical NAL [address] [facility] 2022-11-29 2022-11-29 Ancillary Stevenson Love [facility] 1.2.840. 114 [id number] [facility] 11:00:00 11:47:14 Visit Kerri Pina 350.1.13.10 ity of [place] [phone] Wv dical NAL [address] [facility] 2022-11-29 2022-11-29 Ancillary Lucille Anthony [facility] 1.2.84 0.114 [id number] [facility] 10:15:00 11:11:38 Visit Kerri Pina 350.1.13.10 ity [place] [id number] Wv dical NAL 178 [facility] [place] 2022-11-25 2022-11-25 Ancillary Lucille Love [place] 1.2.840 .114 [id number] [facility] 11:00:00 11:45:00 Visit PinaKerri Logan KIRBY 350.1.13.10 ity of [place] [phone] Wv dical NAL 179 [facility] [place] 2022-11-25 2022-11-25 Ancillary Lucille Anthony [facility] 1.2.84 0.114 [id number] [facility] 10:15:00 11:02:22 Visit PinaAllysonfish ORR 350.1.13.10 ity of [place] [id number] Wv dical NAL 178 [facility] [place] 2022-11-22 2022-11-22 Ancillary Stevenson Love [facility] 1.2.840. 114 [id number] [facility] 11:00:00 11:31:11 Visit YovaniKerri Logan ORR 350.1.13.10 ity of [place] [phone] Wv dical NAL 179 [facility] [place] 2022-11-22 2022-11-22 Outpatient R YOVANI [facility] [place] [id number] [facility] 10:15:00 10:58:25 KERRI ity of [facility] 2022-11-22 2022-11-22 Ancillary Raj, Lucille A [facility] 1.2.84 0.114 [id number] Univers 10:15:00 10:58:25 Visit PinaAllysonfish ORR 350.1.13.10 ity of [place] [id number] W[place] dical NAL [address] [facility] 2022-11-16 2022-11-16 Outpatient R YOVANI [facility] [place] 67516 [id number] Univers 10:15:00 10:15:00 KERRI ity of [facility] 2022-11-11 2022-11-11 Ancillary Lucille Love [facility] 1.2.840 .114 [id number] [facility] 10:15:00 11:00:57 Visit Kerri Pina 350.1.13.10 ity of [place] [phone] W[place] dical NAL [address] [facility] 2022-11-11 2022-11-11 Ancillary Lucille Anthony [facility] 1.2.84 0.114 [id number] Univers 09:30:00 10:12:04 Visit Kerri Pina 350.1.13.10 ity of [place] [phone] W[place] dical NAL [address] [facility] 2022-11-08 2022-11-08 Ancillary Stevenson Love [facility] 1.2.840. 114 [id number] Univers 11:00:00 11:31:38 Visit Kerri Pina 350.1.13.10 ity of [place] [phone] Wv dical NAL [address] [facility] 2022-11-08 2022-11-08 Ancillary Lucille Anthony [facility] 1.2.84 0.114 [id number] Univers 10:15:00 11:15:30 Visit Kerri Pina 350.1.13.10 ity of [place] [id number] Wv dical NAL [address] [facility] 2022-11-05 2022-11-05 Ancillary Lucille Love [facility] 1.2.840 .114 [id number] Univers 10:15:00 10:44:41 Visit Kerri Pina 350.1.13.10 ity of [place] [phone] Wv dical NAL [address] [facility] 2022-11-03 2022-11-03 Ancillary Lucille Love [facility] 1.2.840 .114 [id number] Univers 11:00:00 11:45:00 Visit Kerri Pina 350.1.13.10 ity [place] [id number] Wv dical NAL [address] [facility] 2022-10-28 2022-10-28 Ancillary Lucille Love [facility] 1.2.840 .114 [id number] Univers 11:00:00 11:37:59 Visit Kerri Pina 350.1.13.10 ity of [place] [id number] W[place] dical NAL [address] [facility] 2022-10-28 2022-10-28 Ancillary Lucille Anthony [facility] 1.2.84 0.114 [id number] Univers 10:15:00 11:14:14 Visit Kerri PinaTON 350.1.13.10 ity of [place] [phone] Wv dical NAL [address] [facility] 2022-10-26 2022-10-26 Ancillary Lucille Love [facility] 1.2.840 .114 [id number] Univers 11:00:00 11:54:58 Visit Kerri PinaTON 350.1.13.10 ity of [place] [phone] Wv dical NAL [address] [facility] 2022-10-26 2022-10-26 Ancillary Lucille Anthony [facility] 1.2.84 0.114 [id number] Univers 10:15:00 11:12:23 Visit Kerri PinaTON 350.1.13.10 ity of [place] [id number] Wv dical NAL [address] [facility] 2022-10-21 2022-10-21 Ancillary Lucille Love [facility] 1.2.840 .114 [id number] Univers 11:15:00 11:56:16 Visit Kerri Pina 350.1.13.10 ity of [place] [phone] W[place] dical NAL 179 [facility] [place] 2022-10-21 2022-10-21 Outpatient R YOVANI [facility] [id number] Univers 09:30:00 10:08:26 KERRI ity of [facility] 2022-10-21 2022-10-21 Ancillary Lucille Anthony [facility] 1.2.84 0.114 [id number] [facility] 09:30:00 10:08:26 Visit Kerri Pina 350.1.13.10 ity of [place] [phone] Wv dical NAL 178 [facility] [place] 2022-10-19 2022-10-19 Case Raj [facility] 1.2.840.114 [id number] [facility] 00:00:00 00:00:00 Management Lucille ORR 350.1.13.10 ity of [place] [id number] Wv dical NAL 178 [facility] [place] 2022-10-14 2022-10-14 Ancillary Raj Lucille A [facility] 1.2.84 0.114 [id number] [facility] 11:00:00 11:56:14 Visit Kerri Pina 350.1.13.10 ity of [place] [phone] Wv dical NAL [address] [facility] 2022-10-14 2022-10-14 Ancillary Yaneth Buckley [facility] 1.2. 840.114 [id number] Univers 10:15:00 10:54:22 Visit Kerri Pina 350.1.13.10 ity of [place] [id number] Wv dical NAL 179 [facility] [place] 2022-10-13 2022-10-13 Ancillary Lucille Anthony [facility] 1.2.84 0.114 [id number] Univers 10:15:00 11:03:15 Visit Kerri Pina 350.1.13.10 [facility] [place] [id number] W[place] dical NAL 178 [facility] [place] 2022-10-13 2022-10-13 Ancillary Anabela Kimbrough [facility] 1.2.840 .114 [id number] Univers 09:30:00 10:32:21 Visit Kerri Pina 350.1.13.10 ity [place] [id number] Wv dical NAL 179 [facility] [place] 2022-10-08 2022-10-08 Ancillary Anabela Kimbrough [facility] 1.2.840 .114 [id number] Univers 09:30:00 11:34:22 Visit Kerri Pina 350.1.13.10 ity [facility] [place] [phone] Wv dical NAL 179 [facility] [place] 2022-10-06 2022-10-06 Ancillary Anabela Kimbrough [facility] 1.2.840 .114 [id number] Univers 09:30:00 10:18:45 Visit Kerri Pina 350.1.13.10 ity [facility] [place] [id number] Wv dical NAL 179 [facility] [place] 2022-09-29 2022-09-29 Outpatient R YOVANI [facility] [id number] Univers 09:30:00 11:59:30 KERRI ity of [facility] 2022-09-29 2022-09-29 Ancillary Lucille Anthony [facility] 1.2.84 0.114 [id number] Univers 09:30:00 11:59:30 Visit Kerri Pina 350.1.13.10 ity of [place] [phone] W[place] dical NAL 178 [facility] [place] 2022-09-29 2022-09-29 Orders Doctor HILDA 1.2.840.114 [id number] Univers 00:00:00 00:00:00 Only Unassigned, HILARY 350.1.13.10 ity of [facility] 4.2.7.2.686 Yifan as [id number] [address] 2022-09-27 2022-09-27 Outpatient R YOVANI [facility] [place] [address]7090 [id number] Univers 11:00:00 11:59:18 KERRI steinberg [facility] 2022-09-27 2022-09-27 Ancillary Chelita Che [facility] 1 .2.840.114 [id number] Univers 11:00:00 11:59:18 Visit Kerri Pina 350.1.13.10 ity of [place] [phone] Wv dical NAL 179 [facility] [place] 2022-09-02 2022-09-02 Orders Doctor HILDA 1.2.840.114 [id number] Univers 00:00:00 00:00:00 Only Unassigned, HILARY 350.1.13.10 ity of [facility] 4.2.7.2.686 Yifan as [id number] [address] 2022-09-01 2022-09-01 Outpatient [facility] [id number] [place] 11:00:00 11:00:00 [facility] 2022-08-17 2022-08-17 Outpatient [facility] [id number] [place] 11:30:00 11:30:00 [facility] 2022-07-06 2022-07-06 Outpatient FRANK MARIE [id number] 022 Kelvin 09:27:36 09:27:36 1018 F Mio 2022-02-28 2022-03-30 Inpatient [facility] 17:05:00 15:15:00 GIULIA 2021-05-22 2021-05-22 [facility] [id number] Univers 15:40:00 15:40:00 SHREYAS steinberg o f [facility] 2021-05-07 2021-05-07 [facility] [id number] Univers 10:00:00 10:00:00 SHREYAS idris o f [facility] 2021-03-20 2021-03-20 Orders Doctor HILDA 1.2.840.114 [id number] 00:00:00 00:00:00 Only Unassigned, HILARY 350.1.13.10 [place] [facility] 4.2.7.2.686 [id number] 009 2021-03-20 2021-03-20 Orders Doctor HILDA 1.2.840.114 [id number] Univers 00:00:00 00:00:00 Only Unassigned, HILARY 350.1.13.10 ity of [place] [facility] 4.2.7.2.686 Yifan as [id number] [facility] [address] 2021-02-07 2021-02-07 Outpatient R [facility] [id number] Univers 09:15:00 09:15:00 ity [facility] 2021-01-10 2021-01-10 Outpatient [facility] [id number] Univers 09:30:00 09:30:00 CORNELIUS [facility] 2020-10-10 2020-10-10 Emergency [facility], [facility] 1.2.840.114 [id number] 15:39:00 18:33:00 Anabela Orr 350.1.13.10 [place] 4.2.7.2.686 [place] [id number] 084 2020-10-10 2020-10-10 Emergency [place], [facility] 1.2.840.114 [id number] Univers 15:39:00 18:33:00 Anabela Orr 350.1.13.10 i ty of [place] [id number] [facility] [address] 2020-05-15 2020-05-16 [facility] 1.2.803.769 [id number] 21:47:00 01:20:00 Margaret Orr 350.1.13.10 [place] 4.2.7.2.686 [place] [id number] 084 2020-05-15 2020-05-16 [place] NCME[place]AN 1.2.872.121 [id number] Univers 21:47:00 01:20:00 Margaret Orr 350.1.13.10 i ty of [place] 4.2.7.2.686 [facility] [id number] [facility] [address] Results Test Description Test Time Test Comments Results Result Comments Source CULTURE, URINE 2023-01-20 SPECIMEN NUMBER: 13:02:33 [id number] CULTURE, URINE SPECIMEN NUMBER: [id number] SPECIMEN COMMENT: URINE SOURCE: URINE REPORT STATUS: FINAL ISOLATE NUMBER 1: ORGANISM: 01/16/2023 >100,000 CFU/ML GRAM NEGATIVE BACILLI IDENTIFICATION: 01/19/2023 ESCHERICHIA COLI E. COLI AMOX ICILLIN/CA SENSITIVE <=8/4AMPICILLIN SENSITIVE <=8CEFAZOLIN SENSITIVE <=2CEFTRIAXONE SENSITIVE <=1CIPROFLOXACIN SENSITIVE <=1LEVOFLOXACIN SENSITIVE <=2NITROFURANTOIN SENSITIVE <=32PIP/TAZOBAC SENSITIVE <=16TETRACYCLINE RESISTANT >8TOBRAMYCIN SENSITIVE <=4TRIMETH/SULFA SENSITIVE <=2/38 NOTE: NUMBERS DISPLAYED REPRESENT MINIMUM INHIBITORY CONCENTRATION (JEFF) WHICH IS EXPRESSED IN MCG/ML. [facility] has important pathology staff changes effective 11/17/2022. New pathology staff will provide uninterrupted, excellent patient care and clinical consultation. See URL: [email or web address]. UNLESS OTHERWISE INDICATED, ALL TESTING PERFORMED AT [facility] [address] [place] [address], [place] [address] [employer] CUSTODIAN: JEFF ROCKWELL M.D. CLIA NUMBER [id number] [facility] [place]. [id number] CULTURE, URINE 2022-07-03 SPECIMEN NUMBER: 13:54:04 [id number] CULTURE, URINE SPECIMEN NUMBER: [id number] SPECIMEN COMMENT: URINE SOURCE: URINE REPORT STATUS: [...] MCG/ML. UNLESS OTHERWISE INDICATED, ALL TESTING PERFORMED [facility] [address] [place] [address] [employer] CUSTODIAN: LIZZY GREENWOOD M.D. CLIA NUMBER [id number] [place]. [id number] CULTURE, URINE 2022-05-01 SPECIMEN NUMBER: 11:37:05 [id number] CULTURE, URINE SPECIMEN NUMBER: [id number] SPECIMEN COMMENT: URINE SOURCE: URINE REPORT STATUS: [...] MCG/ML. UNLESS OTHERWISE INDICATED, ALL TESTING PERFORMED [facility] [address] [place] [address] [employer] CUSTODIAN: LIZZY GREENWOOD M.D. CLIA NUMBER [id number] [place]. [id number] Hepatic Function Panel (ALB, T.PRO, BILI T, BU/BC, ALT , AST, 2020-10-10 23:54:00 ALK PHOS) Test Item Value Reference Range Interpretation Comme nts TOTAL BILI (test code = 0831157913) 0.5 mg/dL 0.1-1.1 BILI UNCON (test code = 2429815635) 0.4 mg/dL 0.1-1.1 BILI CONJ (test code = 9778105178) 0.0 mg/dL 0-0.3 T PROTEIN (test code = 1111325431) 8.3 g/dL 6.3-8.2 H ALBUMIN (test code = 9954487942) 4.5 g/dL 3.5-5 ALK PHOS (test code = 7468934534) 86 U/L 34-122 ALTv (test code = 1742-6) 17 U/L 5-35 AST(SGOT) (test code = 0885026890) 31 U/L 13-40 Lab Interpretation (test code = 70521-7) [facility]normal [id number] 23:54:00 Test Item Value Reference Range Interpretation Comments LIPASE (test code = 1907990107) 60 U/L 0-220 Lab Interpretation (test code = Normal 45171-4) [facility] (NA, K, CL, CO2, GLUCOSE, BUN, CREATININE, CA)2020-10-10 23:54:00 Test Item Value Reference Range Interpretation Comments NA (test code = 140 mmol/L 135-145 4987840494) K (test code = 4.7 mmol/L 3.5-5 7118048716) CL (test code = 104 mmol/L 98-108 1920271348) CO2 TOTAL (test code = 28 mmol/L 23-31 9741935876) AGAP (test code = 2-16 2751387407) BUN (test code = 17 mg/dL 7-23 7573376804) GLUCOSE (test code = 92 mg/dL 70-110 7501307587) CREATININE (test code 0.81 mg/dL 0.5-1.04 = 0736093134) CALCIUM (test code = 9.3 mg/dL 8.6-10.6 6772592562) eGFR Calculation mL/min/1.73m2 (Non-) (test code = 1246237394) eGFR Calculation mL/min/1.73m2 () (test code = 2437204167) JOHN (test code = JOHN) Association of [...] or urine or abnormalities in imaging tests). [facility]:41[facility]00 Test Item Value Reference Range Interpretation Comments APPEARANCE (test code = Hazy Clear A 6424506045) COLOR (test code = Yellow Yellow 2942428792) PH (test code = 4.8-8.0 2479299723) SP GRAVITY (test code = 1.003-1.030 5632916669) GLU U QUAL (test code = Normal Normal 0102723860) BLOOD (test code = Negative Negative INTERFERE NCE FROM 4849709246) ASCORBIC ACID M AY CAUSE FALSE NEG ATIVE RESULT KETONES (test code = Negative Negative 6928163755) PROTEIN (test code = Negative Negative 2887-8) UROBILIN (test code = Normal Normal 1290057132) BILIRUBIN (test code = Negative Negative 3150673108) NITRITE (test code = Negative Negative 6750529248) LEUK NESS (test code = 250/uL Negative A 5053903105) RBC/HPF (test code = See_Comment [Autom ated message] 1604588490) The system [employer] generated this result transmitted ref erence range: 0 - 3 HP F. The reference range was not used to int erpret this result as normal/abnormal . WBC/HPF (test code = See_Comment [Autom ated message] [id number]) The system [employer] generated this result transmitted ref erence range: 0 - 5 HP F. The reference range was not used to int erpret this result as normal/abnormal . BACTERIA (test code = Negative Negative 0163694572) MUCOUS (test code = Slight Negative LPF A 5822087170) SQ EPITH (test code = HPF 6106517324) Lab Interpretation (test Abnormal code = 87238-7) General acute hospital with [id number] 23:36:00 Test Item Value Reference Range Interpretation Comments WBC (test code = See_Comment [Automated 7190-2) message] The sy stem which generated this result transmitted reference range : 4.30 - 11.10 10*3/?L. The reference range was not used to interpret this result as normal/abnormal . RBC (test code = See_Comment [Automated 539-8) message] The sy stem which generated this [...] RDW-SD (test code = 46.5 fL 39-49.9 10405-0) RDW-CV (test code = 14.4 % 12-15.5 788-0) PLT (test code = See_Comment [Automated 777-3) message] The sy stem which generated this result transmitted reference range : 166 - 358 10*3/ ?L. The reference r susan was not used to interpret this result as normal/abnormal . MPV (test code = 9.5 fL 9.5-12.9 26417-5) NRBC/100 WBC (test See_Comment [Automat ed code = 0081826759) message] The system which generated this result transmitted reference range : 0.0 - 10.0 /100 WBCs. The refer ence range was not u sed to interpret th is result as normal/abnormal . NRBC x10^3 (test code <0.01 See_Comment [Auto mated = 8634111896) message] The s ystem which generated this result transmitted reference range : 10*3/?L. The reference range was not used to interpret this result as normal/abnormal . GRAN MAT (NEUT) % 53.6 % (test code = 770-8) IMM GRAN % (test code 0.20 % = 4604118711) LYMPH % (test code = 36.6 % 736-9) MONO % (test code = 8.6 % 5905-5) EOS % (test code = 0.7 % 713-8) BASO % (test code = 0.3 % 706-2) GRAN MAT x10^3(ANC) 3.16 10*3/uL 1.88-7.09 (test code = 2769680135) IMM GRAN x10^3 (test <0.03 0-0.06 code = 3949749819) LYMPH x10^3 (test code 2.16 10*3/uL 1.32-3.29 = 731-0) MONO x10^3 (test code 0.51 10*3/uL 0.33-0.92 = 742-7) EOS x10^3 (test code = 0.04 10*3/uL 0.03-0.39 711-2) BASO x10^3 (test code <0.03 0.01-0.07 = 704-7) Lab Interpretation Abnormal (test code = 88686-6) [facility] [id number] 23:05:431. ?Interval enlargement of cystic lesion within the medial segment 7 [id number]. Central fluid attenuation suggests a simple cyst. [...] cystic lesion within the medial segment 7 [id number]. Central fluid attenuation suggests a simple cyst. Considerconfirmation with multiphasic CT or MRIgiven interval growth. 2. Status post cholecystectomy.3. Punctate bilateral nonobstructive nephrolithiasis.4. Left adrenal benign adenoma.5. Left ovarian 1.7 cm cyst. Attention on follow-up in 6 weeks.6. Scarring in the ventral abdominal wall and small fat- containingumbilical hernia.[facility] 05:48[facility]00 Test Item Value Reference Range Interpretation Comments TROPONIN I (test 0.029 ng/mL See_Comment [Automated code = [id number]) message] The system which generated this result [...] ? Lab Interpretation Normal (test code = 68783-2) [facility] [id number] 05:11:31 No acute cardiopulmonary abnormality. Preliminary Report [...] knob is calcified. No acute osseous abnormality. [facility], Radiant Results Inft - 05/16/2020 12:12 AM CDTEXAM: XR CHEST 1 [...] this study and agree withthe above report. [facility] (11020)2020-05-16 05:05:00 Test Item Value Reference Range Interpretation Comments NA (test code = 140 mmol/L 135-145 2819657151) K (test code = 4.6 mmol/L 3.5-5 1401893651) CL (test code = 108 mmol/L 98-108 1292121250) CO2 TOTAL (test code = 29 mmol/L 23-31 6846640359) AGAP (test code = 2-16 1386910375) BUN (test code = 18 mg/dL 7-23 0607403510) GLUCOSE (test code = 108 mg/dL 70-110 3889568302) CREATININE (test code = 0.92 mg/dL 0.5-1.04 7266505783) TOTAL BILI (test code = 0.4 mg/dL 0.1-1.1 6644577765) CALCIUM (test code = 9.3 mg/dL 8.6-10.6 9287929962) T PROTEIN (test code = 8.1 g/dL 6.3-8.2 2917662143) ALBUMIN (test code = 4.2 g/dL 3.5-5 0512375186) ALK PHOS (test code = 71 U/L 34-122 7521891054) ALTv (test code = 20 U/L 5-35 1742-6) AST(SGOT) (test code = 50 U/L 13-40 H 9690595902) eGFR Calculation mL/min/1.73m2 (Non-) (test code = 0159332737) eGFR Calculation mL/min/1.73m2 () (test code = 1739965295) JOHN (test code = JOHN) Association of [...] tests). Lab Interpretation Abnormal (test code = 98649-3) [facility] Test Item Value Reference Range Interpretation Comments LIPASE (test code = 8386213554) 48 U/L 0-220 Lab Interpretation (test code = Normal 90526-4) [facility]ID [facility]2020-05-16 05:01:00 Test Item Value Reference Range Interpretation Comments SARS-CoV-2 Rapid ID NOW Not Detected Not Detected (test code = 82689-5) JOHN (test code = JOHN) ID NOW COVID-19 Assay is an isothermal nucleic acid amplification test intended for the qualitative detection of nucleic acid from SARS-CoV-2 viral RNA in nasopharyngeal (STAFF TRAINER) specimens. It is used under Emergency Use [...] indicated. Lab Interpretation Normal (test code = 85158-2) [facility] [id number] 04:46:00 Test Item Value Reference Range Interpretation Comments WBC (test code = See_Comment [Automated 5038-2) message] The sy stem which generated this result transmitted reference range : 4.30 - 11.10 10*3/?L. The reference range was not used to interpret this result as normal/abnormal . RBC (test code = See_Comment [Automated 599-8) message] The sy stem which generated this [...] RDW-SD (test code = 49.1 fL 39-49.9 62969-4) RDW-CV (test code = 15.1 % 12-15.5 788-0) PLT (test code = See_Comment [Automated 777-3) message] The sy stem which generated this result transmitted reference range : 166 - 358 10*3/ ?L. The reference r susan was not used to interpret this result as normal/abnormal . MPV (test code = 9.8 fL 9.5-12.9 98215-8) NRBC/100 WBC (test See_Comment [Automat ed code = 6770845876) message] The system which generated this result transmitted reference range : 0.0 - 10.0 /100 WBCs. The refer ence range was not u sed to interpret th is result as normal/abnormal . NRBC x10^3 (test code <0.01 See_Comment [Auto mated = 3879378118) message] The s ystem which generated this result transmitted reference range : 10*3/?L. The reference range was not used to interpret this result as normal/abnormal . GRAN MAT (NEUT) % 50.8 % (test code = 770-8) IMM GRAN % (test code 0.40 % = 3430193184) LYMPH % (test code = 39.1 % 736-9) MONO % (test code = 7.7 % 5905-5) EOS % (test code = 1.6 % 713-8) BASO % (test code = 0.4 % 706-2) GRAN MAT x10^3(ANC) 2.90 10*3/uL 1.88-7.09 (test code = 9145056524) IMM GRAN x10^3 (test <0.03 0-0.06 code = 3800650568) LYMPH x10^3 (test code 2.23 10*3/uL 1.32-3.29 = 731-0) MONO x10^3 (test code 0.44 10*3/uL 0.33-0.92 = 742-7) EOS x10^3 (test code = 0.09 10*3/uL 0.03-0.39 711-2) BASO x10^3 (test code <0.03 0.01-0.07 = 704-7) Lab Interpretation Abnormal (test code = 83395-2) [facility]00 Test Item Value Reference Range Interpretation Comments APPEARANCE (test code = Clear Clear 0569948753) COLOR (test code = Yellow Yellow 6026389786) PH (test code = 4.8-8.0 9894930640) SP GRAVITY (test code = 1.003-1.030 7586346167) GLU U QUAL (test code = Normal Normal 8018929296) BLOOD (test code = Negative Negative INTERFERE NCE FROM 1021550911) ASCORBIC ACID M AY CAUSE FALSE NEG ATIVE RESULT KETONES (test code = Negative Negative 5999212267) PROTEIN (test code = Negative Negative 2887-8) UROBILIN (test code = Normal Normal 7986140067) BILIRUBIN (test code = Negative Negative 7119710271) NITRITE (test code = Negative Negative 6006368319) LEUK NESS (test code = Negative Negative 9431896161) RBC/HPF (test code = See_Comment [Autom ated message] 5249929948) The system [employer] generated this result transmitted ref erence range: 0 - 3 HP F. The reference range was not used to int erpret this result as normal/abnormal . WBC/HPF (test code = See_Comment [Autom ated message] 2259136392) The system [employer] generated this result transmitted ref erence range: 0 - 5 HP F. The reference range was not used to int erpret this result as normal/abnormal . BACTERIA (test code = Few Negative A 8668500903) MUCOUS (test code = Slight Negative LPF A 3411121592) SQ EPITH (test code = HPF 9795728494) Lab Interpretation (test Abnormal code = 66089-3) [facility]"
[2023-06-09] MEDS ORDERED: ONDANSETRON 4 MG/2 ML VIAL ONE (10:50)
[2023-06-09] MEDS ORDERED: DICYCLOMINE HCL 10 MG CAP ONE (10:50)
[2023-06-09 11:20] LABS: Hematocrit 42.9 % (36.0-45.0); Lymphocytes % 12.7 % (15.3-44.8); MCV 82.2 fL (80-100); MPV 7.4 fL (7.6-11.3); Platelets 244 thou/uL (152-406); RBC Red Blood Cell Count 5.22 M/uL (3.86-4.86)
[2023-06-09 11:38] LABS: Albumin 3.9 g/dL (3.4-5.0); Bilirubin Total 0.4 mg/dL (0.2-1.0); Potassium 4.1 mEq/L (3.5-5.1); Protein, Total 9.2 g/dL (6.4-8.2); Troponin High Sensitivity 9.7 pg/mL (<58.9)
--- NOTE | 2023-06-09 12:33 | RAD REPORT ---
EXAM DESCRIPTION: CTAbdomen Pelvis W Contrast - 06/09/2023 12:19 pm CLINICAL HISTORY: Abdominal pain. ABD PAIN COMPARISON: <Comparisons> TECHNIQUE: Biphasic CT imaging of the abdomen and pelvis was performed with 100 ml non-ionic IV cont rast. All CT scans are performed using dose optimization technique as appropriate and may include automated exposure control or mA/KV adjustment according to patient size. FINDINGS: The lung bases are clear.Cholecystectomy clips. Small hiatal hernia. Small hepatic cysts are present. No aggressive liver lesions. No intra or extrahepatic biliary tree d ilatation. The spleen, pancreas, right adrenal gland. 13 mm nodule left adrenal gland. No renal mass or hydronep hrosis. No bowel obstruction, free air, free fluid or abscess. Prominent diverticulosis coli present. The nish endix is normal. No evidence of significant lymphadenopathy. Mild lumbar degenerative changes. IMPRESSION: No acute intra-abdominal or pelvic finding.
[2023-06-09 14:37] LABS: Urine Bacteria 20-50 /HPF (<20); Urine Bilirubin NEGATIVE (Negative); Urine Blood 1+ (Negative); Urine Clarity Clear (Clear); Urine Color Light-Yellow (Yellow); Urine Glucose NEGATIVE (Negative); Urine Mucus Slight /HPF (None Seen); Urine Protein TRACE (Negative); Urine Urobilinogen Normal (Normal); Urine pH 6.5 (5.0-7.0)
[2023-06-09 14:38] LABS: Specific Gravity > 1.030 (1.005-1.030)
--- NOTE | 2023-06-09 15:10 | EDPHYS ---
Physician Documentation [facility] Name: Shelia Valentine Age: 72 yrs Sex: Female : 1950 Arrival Date: 06/09/2023 Time: 09:47 Bed 14 Private MD: ED Physician Nivia Gonsalez HPI: 06/09 10:55 This 72 yrs old Female presents to ER via EMS with complaints of abdominal cp3 pain. 10:55 The patient presents with abdominal pain that is diffuse. Onset: The symptoms/episode cp3 began/occurred gradually, 2 day(s) ago. The symptoms do not radiate. Associated signs and symptoms: Pertinent positives: nausea. The symptoms are described as achy, crampy. Modifying factors: The symptoms are alleviated by nothing. Severity of pain: At its worst the pain was moderate. The patient has experienced similar episodes in the past. Historical: - Allergies: 09:54 Cipro; mb9 09:54 Codeine; mb9 09:54 Demerol; mb9 09:54 HYDROCODONE; mb9 09:54 Morphine; mb9 09:54 PENICILLINS; mb9 09:54 Sulfa (Sulfonamide Antibiotics); mb9 - Home Meds: 09:54 aspirin 81 mg Oral tablet daily [Active]; lisinopril 10 mg Oral tablet [Active]; mb9 - PMHx: 09:54 CAD; GERD; High Cholesterol; CVA; chest pain; Arthritis; Kidney stones; Osteoporosis; mb9 Pancreatitis; Sleep Apnea; Hypertension; - PSHx: 09:54 section; mb9 - Immunization history:: Adult Immunizations up to date. - Social history:: Smoking status: Patient denies any tobacco usage or history of. - Family history:: not pertinent. ROS: 10:55 Constitutional: Negative for fever, chills, and weight loss, Eyes: Negative for injury, cp3 pain, redness, and discharge, ENT: Negative for injury, pain, and discharge, Neck: Negative for injury, pain, and swelling, Cardiovascular: Negative for chest pain, palpitations, and edema, Respiratory: Negative for shortness of breath, cough, wheezing, and pleuritic chest pain, Abdomen/GI: Negative for abdominal pain, nausea, vomiting, diarrhea, and constipation, Back: Negative for injury and pain, MS/Extremity: Negative for injury and deformity, Skin: Negative for injury, rash, and discoloration, Neuro: Negative for headache, weakness, numbness, tingling, and seizure, Psych: Negative for depression, anxiety, suicide ideation, homicidal ideation, and hallucinations, Allergy/Immunology: Negative for hives, rash, and allergies, Endocrine: Negative for neck swelling, polydipsia, polyuria, polyphagia, and marked weight changes, Hematologic/Lymphatic: Negative for swollen nodes, abnormal bleeding, and unusual bruising, 10:55 Abdomen/GI: Positive for nausea, abdominal cramps, Exam: 10:55 Constitutional: This is a well developed, well nourished patient who is awake, alert, cp3 and in no acute distress. Head/Face: Normocephalic, atraumatic. Eyes: Pupils equal round and reactive to light, extra-ocular motions intact. Lids and lashes normal. Conjunctiva and sclera are non-icteric and not injected. Cornea within normal limits. Periorbital areas with no swelling, redness, or edema. ENT: Nares patent. No nasal discharge, no septal abnormalities noted. Tympanic membranes are normal and external auditory canals are clear. Oropharynx with no redness, swelling, or masses, exudates, or evidence of obstruction, uvula midline. Mucous membranes moist. Neck: Trachea midline, no thyromegaly or masses palpated, and no cervical lymphadenopathy. Supple, full range of motion without nuchal rigidity, or vertebral point tenderness. No Meningismus. Chest/axilla: Normal chest wall appearance and motion. Nontender with no deformity. No lesions are appreciated. Cardiovascular: Regular rate and rhythm with a normal S1 and S2. No gallops, murmurs, or rubs. Normal PMI, no JVD. No pulse deficits. Respiratory: Lungs have equal breath sounds bilaterally, clear to auscultation and percussion. No rales, rhonchi or wheezes noted. No increased work of breathing, no retractions or nasal flaring. Back: No spinal tenderness. No costovertebral tenderness. Full range of motion. Skin: Warm, dry with normal turgor. Normal color with no rashes, no lesions, and no evidence of cellulitis. MS/ Extremity: Pulses equal, no cyanosis. Neurovascular intact. Full, normal range of motion. Neuro: Awake and alert, GCS 15, oriented to person, place, time, and situation. Cranial nerves II-XII grossly intact. Motor strength 5/5 in all extremities. Sensory grossly intact. Cerebellar exam normal. Normal gait. Psych: Awake, alert, with orientation to person, place and time. Behavior, mood, and affect are within normal limits. 10:55 Abdomen/GI: Inspection: abdomen appears normal, 10:55 Abdomen/GI: Palpation: mild abdominal tenderness, in all quadrants, cp3 Vital Signs: 09:52 BP 191 / 98; Pulse 75; Resp 18; Temp 97.6(O); Pulse Ox 100% on R/A; Weight 74.84 kg; mb9 Height 5 ft. 1 in. ; Pain 7/10; 10:18 BP 185 / 95; Pulse 68; Resp 18; Pulse Ox 100% on R/A; mb9 11:46 BP 159 / 89; Pulse 69; Resp 18; Pulse Ox 96% on R/A; mb9 13:02 BP 158 / 88; Pulse 70; Resp 16; Pulse Ox 100% on R/A; mb9 14:24 BP 167 / 89; Pulse 89; Resp 18; Pulse Ox 99% on R/A; mb9 09:52 Body Mass Index 31.18 (74.84 kg, 154.94 cm) mb9 09:52 Pain Scale: Adult mb9 MDM: 09:57 Patient medically screened. cp3 11:39 Differential diagnosis: bowel obstruction, diverticulitis, gastritis, non-specific abd cp3 pain, urinary tract infection. Data reviewed: vital signs, nurses notes, radiologic studies. Consideration of Admission/Observation Escalation of care including admission/observation considered. I considered the following discharge prescriptions or medication management in the emergency department Medications were administered in the Emergency Department. See MAR. Independent interpretation of the following test(s) in the Emergency Department EKG: See my EKG interpretation above Rhythm Strip Interpretation Rate: 68BPM Rhythm: regular. 11:39 Response to treatment: the patient's symptoms have markedly improved after treatment. cp3 ED course: EKG interpreted by me at 9:58 AM patient with electronic paced rhythm with a rate of 68 no evidence of acute [place]. 15:54 Response to treatment: the patient's symptoms have markedly improved after treatment. cp3 ED course: macrobid for uti. 09/21 10:33 Order name: CBC with Diff; Complete Time: 11:39 cp3 06/09 10:33 Order name: Comprehensive Metabolic Panel; Complete Time: 11:39 cp3 06/09 10:33 Order name: Urinalysis W/Microscopic; Complete Time: 15:06 cp3 06/09 10:33 Order name: Troponin High Sensitivity; Complete Time: 11:39 cp3 06/09 14:30 Order name: COVID-19 SARS RT PCR; Complete Time: 15:54 aa5 06/09 10:33 Order name: CT Abd/Pelvis - IV Contrast Only; Complete Time: 12:39 cp3 06/09 09:56 Order name: EKG - Nurse/Tech; Complete Time: 09:56 mb9 06/09 10:33 Order name: Saline Lock; Complete Time: 11:11 cp3 Administered Medications: 10:53 Drug: Dicyclomine PO 20 mg PO once Route: PO; mb9 11:11 Follow up: Response: No adverse reaction mb9 11:21 Drug: Ondansetron IVP 4 mg IVP once; over 2 minutes Route: IVP; Site: right antecubital;mb9 11:46 Follow up: Response: No adverse reaction mb9 15:16 Drug: Macrobid PO 100 mg PO once; administer with food Route: PO; mb9 15:16 Follow up: Response: No adverse reaction mb9 Disposition Summary: 06/09/23 15:09 Discharge Ordered Notes: Location: Home cp3 Condition: Critical cp3 Diagnosis - Abdominal pain, Generalized cp3 - Nausea cp3 - UTI/ Urinary tract infection, site not specified cp3 Followup: cp3 - With: Oscar Myers DO - When: - Reason: Recheck today's complaints Discharge Instructions: - Discharge Summary Sheet cp3 - Abdominal Pain, Adult cp3 - Nausea and Vomiting, Adult, [id number] cp3 - Urinary Tract Infection, Adult, [id number]-[id number]-Majr cp3 Forms: - Medication Reconciliation Form cp3 - Thank You Letter cp3 - Antibiotic Education cp3 - Prescription Opioid Use cp3 - Patient Portal Instructions cp3 - Leadership Thank You Letter cp3 Prescriptions: - Macrobid 100 mg Oral Capsule - take 1 capsule ORAL route every 12 hours for 14 days; 28 capsule; Refills: 0, cp3 Product Selection Permitted - Zofran 4 mg Oral Tablet - take 1 tablet ORAL route every 12 hours As needed; 20 tablet; Refills: 0, cp3 Product Selection Permitted Signatures: Dispatcher [employer] Nivia Alexander MD MD cp3 Татьяна Mchugh RN RN mb9
--- NOTE | 2023-06-09 15:10 | ER ---
Nurse's Notes [facility] Name: Shelia Valentine Age: 72 yrs Sex: Female : 1950 Arrival Date: 06/09/2023 Time: 09:47 Bed 14 Private MD: Diagnosis: Abdominal pain, Generalized;Nausea;UTI/ Urinary tract infection, site not specified Presentation: 06/09 09:52 Chief complaint: EMS states: "toned out for back pain that started around 5am this mb9 morning. Pt denies fall, injury, or burning with urination. BP elevated at 199/91 due to not taking BP medication, Lisinopril, for the past 2 days". Coronavirus screen: Vaccine status: Patient reports being unvaccinated. Ebola Screen: No symptoms or risks identified at this time. Initial Sepsis Screen: Does the patient meet any 2 criteria? No. Patient's initial sepsis screen is negative. Does the patient have a suspected source of infection? No. Patient's initial sepsis screen is negative. Risk Assessment: Do you want to hurt yourself or someone else? Patient reports no desire to harm self or others. Onset of symptoms was June 09, 2023. 09:52 Method Of Arrival: EMS: [facility] mb9 09:52 Acuity: ADDI 3 mb9 Triage Assessment: 09:54 General: Appears uncomfortable, Behavior is calm, cooperative. Pain: Complains of pain mb9 in back Pain currently is 7 out of 10 on a pain scale. Quality of pain is described as aching, throbbing, Pain began suddenly, Is intermittent. Neuro: Lowe Agitation-Sedation Scale (RASS): 0 - Alert and Calm Level of Consciousness is awake, alert, obeys commands, Oriented to person, place, time, situation, Appropriate for age. Cardiovascular: Heart tones S1 S2 present Patient's skin is warm and dry. Respiratory: Airway is patent Respiratory effort is even, unlabored, Respiratory pattern is regular, symmetrical, Breath sounds are clear bilaterally. GI: Abdomen is round non-distended, Bowel sounds present X 4 quads. Abd is soft and non tender X 4 quads. : No signs and/or symptoms were reported regarding the genitourinary system. Derm: Skin is pink, warm \\T\\ dry. Musculoskeletal: Range of motion: intact in all extremities. Historical: - Allergies: 09:54 Cipro; mb9 09:54 Codeine; mb9 09:54 Demerol; mb9 09:54 HYDROCODONE; mb9 09:54 Morphine; mb9 09:54 PENICILLINS; mb9 09:54 Sulfa (Sulfonamide Antibiotics); mb9 - Home Meds: 09:54 aspirin 81 mg Oral tablet daily [Active]; lisinopril 10 mg Oral tablet [Active]; mb9 - PMHx: 09:54 CAD; GERD; High Cholesterol; CVA; chest pain; Arthritis; Kidney stones; Osteoporosis; mb9 Pancreatitis; Sleep Apnea; Hypertension; - PSHx: 09:54 section; mb9 - Immunization history:: Adult Immunizations up to date. - Social history:: Smoking status: Patient denies any tobacco usage or history of. - Family history:: not pertinent. Screenin:56 [facility] ED Fall Risk Assessment (Adult) History of falling in the last 3 months, mb9 including since admission No falls in past 3 months (0 pts) Confusion or Disorientation No (0 pts) Intoxicated or Sedated No (0 pts) Impaired Gait No (0 pts) Mobility Assist Device Used No (0 pt) Altered Elimination No (0 pt) Score/Fall Risk Level 0 - 2 = Low Risk Oriented to surroundings, Maintained a safe environment, Educated pt \\T\\ family on fall prevention, incl call for assistance when getting out of bed. Abuse screen: Denies threats or abuse. Nutritional screening: No deficits noted. Tuberculosis screening: No symptoms or risk factors identified. Assessment: 09:55 Reassessment: see triage assessment. mb9 11:09 Reassessment: No changes from previously documented assessment. Patient and/or family mb9 updated on plan of care and expected duration. Pain level reassessed. Patient is alert, oriented x 3, equal unlabored respirations, skin warm/dry/pink. 12:30 Reassessment: attempted to collect urine sample. Pt urinated in brief. mb9 13:02 Reassessment: No changes from previously documented assessment. Patient and/or family mb9 updated on plan of care and expected duration. Pain level reassessed. Patient is alert, oriented x 3, equal unlabored respirations, skin warm/dry/pink. 14:25 Reassessment: No changes from previously documented assessment. Patient and/or family mb9 updated on plan of care and expected duration. Pain level reassessed. Patient is alert, oriented x 3, equal unlabored respirations, skin warm/dry/pink. Vital Signs: 09:52 BP 191 / 98; Pulse 75; Resp 18; Temp 97.6(O); Pulse Ox 100% on R/A; Weight 74.84 kg; mb9 Height 5 ft. 1 in. ; Pain 7/10; 10:18 BP 185 / 95; Pulse 68; Resp 18; Pulse Ox 100% on R/A; mb9 11:46 BP 159 / 89; Pulse 69; Resp 18; Pulse Ox 96% on R/A; mb9 13:02 BP 158 / 88; Pulse 70; Resp 16; Pulse Ox 100% on R/A; mb9 14:24 BP 167 / 89; Pulse 89; Resp 18; Pulse Ox 99% on R/A; mb9 09:52 Body Mass Index 31.18 (74.84 kg, 154.94 cm) mb9 09:52 Pain Scale: Adult mb9 ED Course: 09:50 Patient arrived in ED. mb9 09:51 Татьяна Mchugh, RN is Primary Nurse. mb9 09:52 Arm band placed on. mb9 09:54 Triage completed. mb9 09:56 Nivia Gonsalez MD is Attending Physician. cp3 09:56 Placed in gown. Bed in low position. Call light in reach. Side rails up X 1. Client mb9 placed on continuous cardiac and pulse oximetry monitoring. NIBP monitoring applied. mining professionals on. Door closed. Noise minimized. Warm blanket given. 09:56 EKG done, by ED staff. mb9 10:00 Missed attempt(s): 22 gauge in right forearm. Bleeding controlled, band aid applied, mb9 catheter tip intact. 10:45 Missed attempt(s): 24 gauge in right hand. Bleeding controlled, band aid applied, mb9 catheter tip intact. 11:10 Inserted saline lock: 22 gauge in right antecubital area, using aseptic technique. ll1 Blood collected. 11:46 Assist provider with bone marrow aspiration. mb9 12:21 CT Abd/Pelvis - IV Contrast Only In Process Unspecified. EDMS 14:25 Urinalysis W/Microscopic Sent. mb9 15:08 Oscar Myers DO is Referral Physician. cp3 15:29 IV discontinued, intact, bleeding controlled, No redness/swelling at site. Pressure mb9 dressing applied. Administered Medications: 10:53 Drug: Dicyclomine PO 20 mg PO once Route: PO; mb9 11:11 Follow up: Response: No adverse reaction mb9 11:21 Drug: Ondansetron IVP 4 mg IVP once; over 2 minutes Route: IVP; Site: right antecubital;mb9 11:46 Follow up: Response: No adverse reaction mb9 15:16 Drug: Macrobid PO 100 mg PO once; administer with food Route: PO; mb9 15:16 Follow up: Response: No adverse reaction mb9 Medication: 09:56 VIS not applicable for this client. mb9 Outcome: 15:09 Discharge ordered by MD. cp3 15:29 Discharged to home via wheelchair, mb9 15:29 Condition: stable 15:29 Discharge instructions given to patient, family, Instructed on discharge instructions, follow up and referral plans. Demonstrated understanding of instructions, follow-up care, medications, Prescriptions given X 2, 15:29 Patient left the ED. mb9 Signatures: Dispatcher [employer] Nivia Alexander MD MD cp3 Junior Ibrahim RN RN ll1 Татьяна Mchugh RN RN mb9
[2023-06-09] MEDS ORDERED: NITROFURAN MACRO 100 MG CAP PO ONE (15:24)
[2023-06-09 16:12] VITALS: TEMP 97.6
[2023-06-09 16:22] VITALS: BP 167/89; O2SAT 99
--- NOTE | 2023-06-10 17:15 | EKG ---
Test Date: 2023-06-09 Test Time: 09:58:26 [employer]: [facility]IDA MEASUREMENT RESULTS: Intervals: Rate: 68 KS: 212 QRSD: 154 QT: 484 QTc: 514 [place]: P: 79 KS: 212 QRS: 129 T: -46 INTERPRETIVE STATEMENTS: Electronic ventricular pacemaker Compared to ECG 04/10/2023 16:25:05 Sinus rhythm no longer present First degree AV block no longer present T-wave abnormality no longer present Electronically Signed On 06-10-23 17:11:41 CDT by Cecilio Gunn
== END 2023-06-09 15:29 | disposition home or self-care (01) ==
LOC: ER 09:47
DX: N39.0 Urinary tract infection, site not specified (principal); R11.2 Nausea with vomiting, unspecified; I10 Essential (primary) hypertension; Z20.822 Contact with and (suspected) exposure to COVID-19; Z88.0 Allergy status to penicillin; Z88.1 Allergy status to other antibiotic agents; Z88.2 Allergy status to sulfonamides; Z88.5 Allergy status to narcotic agent; Z79.82 Long term (current) use of aspirin
CPT/HCPCS: 93005; 85025; 81001; 36415; 84484; 80053; 87635; 74177; 96374; 99285; Q9967; J2405

== ENCOUNTER 2023-07-31 04:01 | Emergency (ER) | payer OTHER ==
--- OUTSIDE RECORDS SUMMARY | 2023-07-31 04:09 | XMS REPORT | Continuity of Care Document ---
:1950 Author Organization [facility] t Address [address] [place] [address] Care Team Providers Name Role Phone Smooth Lynn Primary Care Physician JOSE ANGEL LOZA Attending Clinician Unavailable ROMIE ARRIAGA Attending Clinician Unavailable ROMIE ARRIAGA Attending Clinician Unavailable KERRI PINA Attending Clinician Unavailable KERRI PINA Attending Clinician Unavailable Yaneth Buckley PTA Attending Clinician Unavailable Kerri Pina MD Attending Clinician Veronica Medina PT Attending Clinician Unavailable Stevenson Love PTA Attending Clinician Unavailable Anabela Kimbrough PTA Attending Clinician Unavailable Lucille Love PTA Attending Clinician Unavailable Bel Dominguez PT Attending Clinician Unavailable 1, [facility] Attending Clinician Unavailable Romie Arriaga MD Attending Clinician Doctor Unassigned, [place] Attending Clinician Unavailable Raj OT, Lucille A Attending Clinician Unavailable Anthony Bartlett PTChelita Attending Clinician Unavailable GIULIA GROSS Attending Clinician Unavailable SHREYAS GARSIA Attending Clinician Unavailable CORNELIUS ROSE Attending Clinician Unavailable Darrick LOYA, Anabela Attending Clinician Niecy BALDERRAMA Margaret S Attending Clinician GIULIA GROSS Admitting Clinician Unavailable Payers Payer Name Policy Type Policy Number Effective Date Expiration Date Navid thomason [facility] WELLMED [id number] 2021 00:00:00 MEDICAID [facility] [id number] 2018 00:00:00 WELLMED/AARP [id number] 2019 MEDICARE ADVANTAGE 00:00:00 MEDICARE PART A [id number] 2015 \\T\\ B 00:00:00 Problems Condition Condition Condition Status Onset Resolution Last Treating Co mments Source Name Details Category Date Date Treatment Clinician Date No known No known Disease Unive rs active active ity of problems problems [facility] Allergies, Adverse Reactions, Alerts Allergy Allergy Status Severity Reaction(s) Onset Inactive Treating Comm ents Source Name Type Date Date Clinician ONDANSET DRUG Active ITCHING 2017-09 Univers TEDDY HCL 0-05 ity of (PF) 00:00: [place] 00 [facility] Ondanset Propensi Active Itching 2017-09 Reaction Uni vers teddy Hcl ty to 0-05 occurred ity of (Pf) adverse 00:00: in the [place] reaction 00 ER. [facility] s Branch CEPHALEX DRUG Active NAUSEA ONLY 2006-09 Uni vers IN INGREDI 2- ity of 00:00: [place] 00 [facility] Branch DOXYCYCL DRUG Active NAUSEA ONLY 2006-09 Uni vers INE INGREDI 2- ity of 00:00: [place] 00 [facility] Branch FAMOTIDI DRUG Active NAUSEA ONLY 2006-09 Uni vers NE INGREDI 2-27 ity of 00:00: [place] 00 [facility] Branch HYDROXYZ DRUG Active NAUSEA ONLY 2006-09 Uni vers INE INGREDI 2-27 ity of 00:00: [place] 00 [facility] IBUPROFE DRUG Active NAUSEA ONLY 2006-09 Uni vers N INGREDI - ity of 00:00: [place] 00 [facility] Branch SULFA Drug Active NAUSEA ONLY 2006-09 [...] Stop Date Quantity Comments [facility] Sexual orientation Univer sity [facility] History of tobacco Current smoker Un iversity of use [facility] Exposure to 2023-01-23 2023-02-02 Not sure University of SARS-CoV-2 (event) 00:00:00 09:11:00 [facility] History of Social 2020-10-10 2020-10-10 Univers ity of function 00:00:00 00:00:00 [facility] Tobacco use and 2020-10-10 2020-10-10 Never used Universit y of exposure 00:00:00 00:00:00 [facility] Alcohol intake 2020-10-10 2020-10-10 0 /d University of 00:00:00 00:00:00 [facility] Sex Ass[birth year] At [birth year] Universit y of 00:00:00 00:00:00 [facility] Smoking Status Start Date Stop Date Source Ex-smoker 2020-10-10 00:00:00 2020-10-10 00:00:00 [facility] Medications Ordered Filled Start Stop [...] 10/10/20 at Branch 1700, PAUL methocarbam Yes [id number] 750mg Take 1 Univers oL 750 mg 1-22 tablet by ity o f tablet 00:00: mouth 3 [place] 00 (three) Medical times Branch daily as needed (muscle pain). methocarbam Yes [id number] 750mg Take 1 Univers oL 750 mg 1-22 tablet by ity o f tablet 00:00: mouth 3 [place] 00 (three) Medical times Branch daily as needed (muscle pain). methocarbam Yes [id number] 750mg Take 1 Univers oL 750 mg 1-22 tablet by ity o f tablet 00:00: mouth 3 [place] 00 (three) Medical times Branch daily as needed (muscle pain). methocarbam 0 Yes [id number] 750mg Take 1 Univers oL 750 mg 1-22 tablet by ity o f tablet 00:00: mouth 3 [place] 00 (three) Medical times Branch daily as needed (muscle pain). methocarbam 2020-0 Yes [id number] 750mg Take 1 Univers oL 750 mg 1-22 tablet by ity o f tablet 00:00: mouth 3 [place] 00 (three) Medical times Branch daily as needed (muscle pain). methocarbam 2020-0 Yes [id number] 750mg Take 1 Univers oL 750 mg 1-22 tablet by ity o f tablet 00:00: mouth (three) Medical times Branch daily as needed (muscle pain). methocarbam 2020-0 Yes [id number] 750mg Take 1 Univers oL 750 mg 1-22 tablet by ity o f tablet 00:00: mouth 3 (three) Medical times Branch daily as needed (muscle pain). methocarbam 2020-0 Yes [id number] 750mg Take 1 Univers oL 750 mg 1-22 tablet by ity o f tablet 00:00: mouth (three) Medical times Branch daily as needed (muscle pain). methocarbam 2020-0 Yes [id number] 750mg Take 1 Univers oL 750 mg 1-22 tablet by ity o f tablet 00:00: mouth (three) Medical times Branch daily as needed (muscle pain). methocarbam 2020-0 Yes [id number] 750mg Take 1 Univers oL 750 mg 1-22 tablet by ity o f tablet 00:00: mouth (three) Medical times Branch daily as needed (muscle pain). methocarbam 2020-0 Yes [id number] 750mg Take 1 Univers oL 750 mg 1-22 tablet by ity o f tablet 00:00: mouth (three) Medical times Branch daily as needed (muscle pain). methocarbam 2020-0 Yes [id number] 750mg Take 1 Univers oL 750 mg 1-22 tablet by ity o f tablet 00:00: mouth (three) Medical times Branch daily as needed (muscle pain). methocarbam 2020-0 Yes [id number] 750mg Take 1 Univers oL 750 mg 1-22 tablet by ity o f tablet 00:00: mouth (three) Medical times Branch daily as needed (muscle pain). methocarbam 2020-0 Yes [id number] 750mg Take 1 Univers oL 750 mg 1-22 tablet by ity o f tablet 00:00: mouth (three) Medical times Branch daily as needed (muscle pain). methocarbam 2020-0 Yes [id number] 750mg Take 1 Univers oL 750 mg 1-22 tablet by ity o f tablet 00:00: mouth (three) Medical times Branch daily as needed (muscle pain). methocarbam 2020-0 Yes [id number] 750mg Take 1 Univers oL 750 mg 1-22 tablet by ity o f tablet 00:00: mouth 3 (three) Medical times Branch daily as needed (muscle pain). methocarbam 2020-0 Yes [id number] 750mg Take 1 Univers oL 750 mg 1-22 tablet by ity o f tablet 00:00: mouth 3 (three) Medical times Branch daily as needed (muscle pain). methocarbam 2020-0 Yes [id number] 750mg Take 1 Univers oL 750 mg 1-22 tablet by ity o f tablet 00:00: mouth 3 (three) Medical times Branch daily as needed (muscle pain). methocarbam 2020-0 Yes [id number] 750mg Take 1 Univers oL 750 mg 1-22 tablet by ity o f tablet 00:00: mouth 3 (three) Medical times Branch daily as needed (muscle pain). methocarbam 2020-0 Yes [id number] 750mg Take 1 Univers oL 750 mg 1-22 tablet by ity o f tablet 00:00: mouth (three) Medical times Branch daily as needed (muscle pain). methocarbam 2020-0 Yes [id number] 750mg Take 1 Univers oL 750 mg 1-22 tablet by ity o f tablet 00:00: mouth (three) Medical times Branch daily as needed (muscle pain). methocarbam 2020-0 Yes [id number] 750mg Take 1 Univers oL 750 mg 1-22 tablet by ity o f tablet 00:00: mouth (three) Medical times Branch daily as needed (muscle pain). methocarbam 2020-0 Yes [id number] 750mg Take 1 Univers oL 750 mg 1-22 tablet by ity o f tablet 00:00: mouth 3 (three) Medical times Branch daily as needed (muscle pain). methocarbam 2020-0 Yes [id number] 750mg Take 1 Univers oL 750 mg 1-22 tablet by ity o f tablet 00:00: mouth 3 (three) Medical times Branch daily as needed (muscle pain). methocarbam 2020-0 Yes [id number] 750mg Take 1 Univers oL 750 mg 1-22 tablet by ity o f tablet 00:00: mouth 3 [place] 00 (three) Medical times Branch daily as needed (muscle pain). methocarbam 2020-0 Yes [id number] 750mg Take 1 Univers oL 750 mg 1-22 tablet by ity o f tablet 00:00: mouth 3 (three) Medical times Branch daily as needed (muscle pain). methocarbam 2020-0 Yes [id number] 750mg Take 1 Univers oL 750 mg 1-22 tablet by ity o f tablet 00:00: mouth 3 (three) Medical times Branch daily as needed (muscle pain). methocarbam 2020-0 Yes [id number] 750mg Take 1 Univers oL 750 mg 1-22 tablet by ity o f tablet 00:00: mouth 3 (three) Medical times Branch daily as needed (muscle pain). methocarbam 2020-0 Yes [id number] 750mg Take 1 Univers oL 750 mg 1-22 tablet by ity o f tablet 00:00: mouth 3 (three) Medical times Branch daily as needed (muscle pain). methocarbam 2020-0 Yes [id number] 750mg Take 1 Univers oL 750 mg 1-22 tablet by ity o f tablet 00:00: mouth (three) Medical times Branch daily as needed (muscle pain). methocarbam 2020-0 Yes [id number] 750mg Take 1 Univers oL 750 mg 1-22 tablet by ity o f tablet 00:00: mouth 3 (three) Medical times Branch daily as needed (muscle pain). methocarbam 2020-0 Yes [id number] 750mg Take 1 Univers oL 750 mg 1-22 tablet by ity o f tablet 00:00: mouth (three) Medical times Branch daily as needed (muscle pain). methocarbam 2020-0 Yes [id number] 750mg Take 1 Univers oL 750 mg 1-22 tablet by ity o f tablet 00:00: mouth 3 (three) Medical times Branch daily as needed (muscle pain). methocarbam 2020-0 Yes [id number] 750mg Take 1 Univers oL 750 mg 1-22 tablet by ity o f tablet 00:00: mouth 3 (three) Medical times Branch daily as needed (muscle pain). methocarbam 2020-0 Yes [id number] 750mg Take 1 Univers oL 750 mg 1-22 tablet by ity o f tablet 00:00: mouth 3 (three) Medical times Branch daily as needed (muscle pain). methocarbam 2020-0 Yes [id number] 750mg Take 1 Univers oL 750 mg 1-22 tablet by ity o f tablet 00:00: mouth 3 (three) Medical times Branch daily as needed (muscle pain). methocarbam 2020-0 Yes [id number] 750mg Take 1 Univers oL 750 mg 1-22 tablet by ity o f tablet 00:00: mouth 3 (three) Medical times Branch daily as needed (muscle pain). methocarbam 2020-0 Yes [id number] 750mg Take 1 Univers oL 750 mg 1-22 tablet by ity o f tablet 00:00: mouth (three) Medical times Branch daily as needed (muscle pain). methocarbam 2020-0 Yes [id number] 750mg Take 1 Univers oL 750 mg 1-22 tablet by ity o f tablet 00:00: mouth (three) Medical times Branch daily as needed (muscle pain). methocarbam 0 Yes [id number] 750mg Take 1 Univers oL 750 mg 1-22 tablet by ity o f tablet 00:00: mouth (three) Medical times Branch daily as needed (muscle pain). methocarbam 0 Yes [id number] 750mg Take 1 Univers oL 750 mg 1-22 tablet by ity o f tablet 00:00: mouth 3 (three) Medical times Branch daily as needed (muscle pain). methocarbam 2020-0 Yes [id number] 750mg Take 1 Univers oL 750 mg 1-22 tablet by ity o f tablet 00:00: mouth (three) Medical times Branch daily as needed (muscle pain). methocarbam 2020-0 Yes [id number] 750mg Take 1 Univers oL 750 mg 1-22 tablet by ity o f tablet 00:00: mouth 3 (three) Medical times Branch daily as needed (muscle pain). methocarbam 2020-0 Yes [id number] 750mg Take 1 Univers oL 750 mg 1-22 tablet by ity o f tablet 00:00: mouth 3 (three) Medical times Branch daily as needed (muscle pain). methocarbam 2020-0 Yes [id number] 750mg Take 1 Univers oL 750 mg 1-22 tablet by ity o f tablet 00:00: mouth 3 (three) Medical times Branch daily as needed (muscle pain). methocarbam 2020-0 Yes [id number] 750mg Take 1 Univers oL 750 mg 1-22 tablet by ity o f tablet 00:00: mouth 3 (three) Medical times Branch daily as needed (muscle pain). methocarbam 2020-0 Yes [id number] 750mg Take 1 Univers oL 750 mg 1-22 tablet by ity o f tablet 00:00: mouth 3 (three) Medical times Branch daily as needed (muscle pain). methocarbam 2020-0 Yes [id number] 750mg Take 1 Univers oL 750 mg 1-22 tablet by ity o f tablet 00:00: mouth 3 (three) Medical times Branch daily as needed (muscle pain). methocarbam 2020-0 Yes [id number] 750mg Take 1 Univers oL 750 mg 1-22 tablet by ity o f tablet 00:00: mouth (three) Medical times Branch daily as needed (muscle pain). methocarbam 2020-0 Yes [id number] 750mg Take 1 Univers oL 750 mg 1-22 tablet by ity o f tablet 00:00: mouth (three) Medical times Branch daily as needed (muscle pain). methocarbam 2020-0 Yes [id number] 750mg Take 1 Univers oL 750 mg 1-22 tablet by ity o f tablet 00:00: mouth (three) Medical times Branch daily as needed (muscle pain). methocarbam 2020-0 Yes [id number] 750mg Take 1 Univers oL 750 mg 1-22 tablet by ity o f tablet 00:00: mouth 3 (three) Medical times Branch daily as needed (muscle pain). methocarbam 2020-0 Yes [id number] 750mg Take 1 Univers oL 750 mg 1-22 tablet by ity o f tablet 00:00: mouth 3 (three) Medical times Branch daily as needed (muscle pain). methocarbam 2020-0 Yes [id number] 750mg Take 1 Univers oL 750 mg 1-22 tablet by ity o f tablet 00:00: mouth 3 (three) Medical times Branch daily as needed (muscle pain). methocarbam 2020-0 Yes [id number] 750mg Take 1 Univers oL 750 mg 1-22 tablet by ity o f tablet 00:00: mouth 3 (three) Medical times Branch daily as needed (muscle pain). methocarbam 2020-0 Yes [id number] 750mg Take 1 Univers oL 750 mg 1-22 tablet by ity o f tablet 00:00: mouth (three) Medical times Branch daily as needed (muscle pain). methocarbam 2020-0 Yes [id number] 750mg Take 1 Univers oL 750 mg 1-22 tablet by ity o f tablet 00:00: mouth (three) Medical times Branch daily as needed (muscle pain). methocarbam 2020-0 Yes [id number] 750mg Take 1 Univers oL 750 mg 1-22 tablet by ity o f tablet 00:00: mouth (three) Medical times Branch daily as needed (muscle pain). methocarbam 2020-0 Yes [id number] 750mg Take 1 Univers oL 750 mg 1-22 tablet by ity o f tablet 00:00: mouth (three) Medical times Branch daily as needed (muscle pain). methocarbam 2020-0 Yes [id number] 750mg Take 1 Univers oL 750 mg 1-22 tablet by ity o f tablet 00:00: mouth (three) Medical times Branch daily as needed (muscle pain). methocarbam 2020-0 Yes [id number] 750mg Take 1 Univers oL 750 mg 1-22 tablet by ity o f tablet 00:00: mouth (three) Medical times Branch daily as needed (muscle pain). methocarbam 2020-0 Yes [id number] 750mg Take 1 Univers oL 750 mg 1-22 tablet by ity o f tablet 00:00: mouth (three) Medical times Branch daily as needed (muscle pain). methocarbam 2020-0 Yes [id number] 750mg Take 1 Univers oL 750 mg 1-22 tablet by ity o f tablet 00:00: mouth 3 (three) Medical times Branch daily as needed (muscle pain). methocarbam 2020-0 Yes [id number] 750mg Take 1 Univers oL 750 mg 1-22 tablet by ity o f tablet 00:00: mouth 3 00 (three) Medical times Branch daily as needed (muscle pain). methocarbam 2020-0 Yes [id number] 750mg Take 1 Univers oL 750 mg 1-22 tablet by ity o f tablet 00:00: mouth 3 [place] 00 (three) Medical times Branch daily as needed (muscle pain). methocarbam 2020-0 Yes [id number] 750mg Take 1 Univers oL 750 mg [...] at Branch 0100, STAT albuterol 2019-0 Yes [id number] 2{puff} Inhale 2 Univers 90 8-28 Puffs ity of mcg/actuati 00:00: every 4 [place] as on inhaler 00 (four) Medical hours as Branch needed for Wheezing or Shortness of Breath. albuterol 2019-0 Yes [id number] 2{puff} Inhale 2 Univers 90 8-28 Puffs ity of mcg/actuati 00:00: every 4 [place] as on inhaler 00 (four) Medical hours as Branch needed for Wheezing or Shortness of Breath. albuterol 2020-0 Yes [id number] 2{puff} Inhale 2 Univers 90 8-28 Puffs ity of mcg/actuati 00:00: every 4 [place] as on inhaler 00 (four) Medical hours as Branch needed for Wheezing or Shortness of Breath. albuterol 2019-0 Yes [id number] 2{puff} Inhale 2 Univers 90 8-28 Puffs ity of mcg/actuati 00:00: every 4 [place] as on inhaler 00 (four) Medical hours as Branch needed for Wheezing or Shortness of Breath. albuterol 2020-0 Yes [id number] 2{puff} Inhale 2 Univers 90 8-28 Puffs ity of mcg/actuati 00:00: every 4 [place] as on inhaler 00 (four) Medical hours as Branch needed for Wheezing or Shortness of Breath. albuterol 2020-0 Yes [id number] 2{puff} Inhale 2 Univers 90 8-28 Puffs ity of mcg/actuati 00:00: every 4 [place] as on inhaler 00 (four) Medical hours as Branch needed for Wheezing or Shortness of Breath. albuterol 2020-0 Yes [id number] 2{puff} Inhale 2 Univers 90 8-28 Puffs ity of mcg/actuati 00:00: every 4 [place] as on inhaler 00 (four) Medical hours as Branch needed for Wheezing or Shortness of Breath. albuterol 2020-0 Yes [id number] 2{puff} Inhale 2 Univers 90 8-28 Puffs ity of mcg/actuati 00:00: every 4 [place] as on inhaler 00 (four) Medical hours as Branch needed for Wheezing or Shortness of Breath. albuterol 2020-0 Yes [id number] 2{puff} Inhale 2 Univers 90 8-28 Puffs ity of mcg/actuati 00:00: every 4 [place] as on inhaler 00 (four) Medical hours as Branch needed for Wheezing or Shortness of Breath. albuterol 2020-0 Yes [id number] 2{puff} Inhale 2 Univers 90 8-28 Puffs ity of mcg/actuati 00:00: every 4 [place] as on inhaler 00 (four) Medical hours as Branch needed for Wheezing or Shortness of Breath. albuterol 2020-0 Yes [id number] 2{puff} Inhale 2 Univers 90 8-28 Puffs ity of mcg/actuati 00:00: every 4 [place] as on inhaler 00 (four) Medical hours as Branch needed for Wheezing or Shortness of Breath. albuterol 2020-0 Yes [id number] 2{puff} Inhale 2 Univers 90 8-28 Puffs ity of mcg/actuati 00:00: every 4 [place] as on inhaler 00 (four) Medical hours as Branch needed for Wheezing or Shortness of Breath. albuterol 2020-0 Yes [id number] 2{puff} Inhale 2 Univers 90 8-28 Puffs ity of mcg/actuati 00:00: every 4 [place] as on inhaler 00 (four) Medical hours as Branch needed for Wheezing or Shortness of Breath. albuterol 2020-0 Yes [id number] 2{puff} Inhale 2 Univers 90 8-28 Puffs ity of mcg/actuati 00:00: every 4 [place] as on inhaler 00 (four) Medical hours as Branch needed for Wheezing or Shortness of Breath. albuterol 2020-0 Yes [id number] 2{puff} Inhale 2 Univers 90 8-28 Puffs ity of mcg/actuati 00:00: every 4 [place] as on inhaler 00 (four) Medical hours as Branch needed for Wheezing or Shortness of Breath. albuterol 2020-0 Yes [id number] 2{puff} Inhale 2 Univers 90 8-28 Puffs ity of mcg/actuati 00:00: every 4 [place] as on inhaler 00 (four) Medical hours as Branch needed for Wheezing or Shortness of Breath. albuterol 2020-0 Yes [id number] 2{puff} Inhale 2 Univers 90 8-28 Puffs ity of mcg/actuati 00:00: every 4 [place] as on inhaler 00 (four) Medical hours as Branch needed for Wheezing or Shortness of Breath. albuterol 2020-0 Yes [id number] 2{puff} Inhale 2 Univers 90 8-28 Puffs ity of mcg/actuati 00:00: every 4 [place] as on inhaler 00 (four) Medical hours as Branch needed for Wheezing or Shortness of Breath. albuterol 2020-0 Yes [id number] 2{puff} Inhale 2 Univers 90 8-28 Puffs ity of mcg/actuati 00:00: every 4 [place] as on inhaler 00 (four) Medical hours as Branch needed for Wheezing or Shortness of Breath. albuterol 2020-0 Yes [id number] 2{puff} Inhale 2 Univers 90 8-28 Puffs ity of mcg/actuati 00:00: every 4 [place] as on inhaler 00 (four) Medical hours as Branch needed for Wheezing or Shortness of Breath. albuterol 2020-0 Yes [id number] 2{puff} Inhale 2 Univers 90 8-28 Puffs ity of mcg/actuati 00:00: every 4 [place] as on inhaler 00 (four) Medical hours as Branch needed for Wheezing or Shortness of Breath. albuterol 2020-0 Yes [id number] 2{puff} Inhale 2 Univers 90 8-28 Puffs ity of mcg/actuati 00:00: every 4 [place] as on inhaler 00 (four) Medical hours as Branch needed for Wheezing or Shortness of Breath. albuterol 2020-0 Yes [id number] 2{puff} Inhale 2 Univers 90 8-28 Puffs ity of mcg/actuati 00:00: every 4 [place] as on inhaler 00 (four) Medical hours as Branch needed for Wheezing or Shortness of Breath. albuterol 2020-0 Yes [id number] 2{puff} Inhale 2 Univers 90 8-28 Puffs ity of mcg/actuati 00:00: every 4 [place] as on inhaler 00 (four) Medical hours as Branch needed for Wheezing or Shortness of Breath. albuterol 2020-0 Yes [id number] 2{puff} Inhale 2 Univers 90 8-28 Puffs ity of mcg/actuati 00:00: every 4 [place]if[place] as on inhaler 00 (four) Medical hours as Branch needed for Wheezing or Shortness of Breath. albuterol 2020-0 Yes [id number] 2{puff} Inhale 2 Univers 90 8-28 Puffs ity of mcg/actuati 00:00: every 4 [place] as on inhaler 00 (four) Medical hours as Branch needed for Wheezing or Shortness of Breath. albuterol 2020-0 Yes [id number] 2{puff} Inhale 2 Univers 90 8-28 Puffs ity of mcg/actuati 00:00: every 4 [place] as on inhaler 00 (four) Medical hours as Branch needed for Wheezing or Shortness of Breath. albuterol 2020-0 Yes [id number] 2{puff} Inhale 2 Univers 90 8-28 Puffs ity of mcg/actuati 00:00: every 4 [place]if[place] as on inhaler 00 (four) Medical hours as Branch needed for Wheezing or Shortness of Breath. albuterol 2020-0 Yes [id number] 2{puff} Inhale 2 Univers 90 8-28 Puffs ity of mcg/actuati 00:00: every 4 [place]if[place] as on inhaler 00 (four) Medical hours as Branch needed for Wheezing or Shortness of Breath. albuterol 2020-0 Yes [id number] 2{puff} Inhale 2 Univers 90 8-28 Puffs ity of mcg/actuati 00:00: every 4 [place]if[place] as on inhaler 00 (four) Medical hours as Branch needed for Wheezing or Shortness of Breath. albuterol 2020-0 Yes [id number] 2{puff} Inhale 2 Univers 90 8-28 Puffs ity of mcg/actuati 00:00: every 4 [place]if[place] as on inhaler 00 (four) Medical hours as Branch needed for Wheezing or Shortness of Breath. albuterol 2020-0 Yes [id number] 2{puff} Inhale 2 Univers 90 8-28 Puffs ity of mcg/actuati 00:00: every 4 [place] as on inhaler 00 (four) Medical hours as Branch needed for Wheezing or Shortness of Breath. albuterol 2020-0 Yes [id number] 2{puff} Inhale 2 Univers 90 8-28 Puffs ity of mcg/actuati 00:00: every 4 [place] as on inhaler 00 (four) Medical hours as Branch needed for Wheezing or Shortness of Breath. albuterol 2020-0 Yes [id number] 2{puff} Inhale 2 Univers 90 8-28 Puffs ity of mcg/actuati 00:00: every 4 [place]if[place] as on inhaler 00 (four) Medical hours as Branch needed for Wheezing or Shortness of Breath. albuterol 2020-0 Yes [id number] 2{puff} Inhale 2 Univers 90 8-28 Puffs ity of mcg/actuati 00:00: every 4 [place]if[place] as on inhaler 00 (four) Medical hours as Branch needed for Wheezing or Shortness of Breath. albuterol 2020-0 Yes [id number] 2{puff} Inhale 2 Univers 90 8-28 Puffs ity of mcg/actuati 00:00: every 4 [place]ifan as on inhaler 00 (four) Medical hours as Branch needed for Wheezing or Shortness of Breath. albuterol 2020-0 Yes [id number] 2{puff} Inhale 2 Univers 90 8-28 Puffs ity of mcg/actuati 00:00: every 4 [place]if[place] as on inhaler 00 (four) Medical hours as Branch needed for Wheezing or Shortness of Breath. albuterol 2020-0 Yes [id number] 2{puff} Inhale 2 Univers 90 8-28 Puffs ity of mcg/actuati 00:00: every 4 [place]if[place] as on inhaler 00 (four) Medical hours as Branch needed for Wheezing or Shortness of Breath. albuterol 2020-0 Yes [id number] 2{puff} Inhale 2 Univers 90 8-28 Puffs ity of mcg/actuati 00:00: every 4 [place]if[place] as on inhaler 00 (four) Medical hours as Branch needed for Wheezing or Shortness of Breath. albuterol 2020-0 Yes [id number] 2{puff} Inhale 2 Univers 90 8-28 Puffs ity of mcg/actuati 00:00: every 4 [place]if[place] as on inhaler 00 (four) Medical hours as Branch needed for Wheezing or Shortness of Breath. albuterol 2020-0 Yes [id number] 2{puff} Inhale 2 Univers 90 8-28 Puffs ity of mcg/actuati 00:00: every 4 Yifan as on inhaler 00 (four) Medical hours as Branch needed for Wheezing or Shortness of Breath. albuterol 2020-0 Yes [id number] 2{puff} Inhale 2 Univers 90 8-28 Puffs ity of mcg/actuati 00:00: every 4 [place]if[place] as on inhaler 00 (four) Medical hours as Branch needed for Wheezing or Shortness of Breath. albuterol 2020-0 Yes [id number] 2{puff} Inhale 2 Univers 90 8-28 Puffs ity of mcg/actuati 00:00: every 4 [place]if[place] as on inhaler 00 (four) Medical hours as Branch needed for Wheezing or Shortness of Breath. albuterol 2020-0 Yes [id number] 2{puff} Inhale 2 Univers 90 8-28 Puffs ity of mcg/actuati 00:00: every 4 [facility] as on inhaler 00 (four) Medical hours as Branch needed for Wheezing or Shortness of Breath. albuterol 2020-0 Yes [id number] 2{puff} Inhale 2 [facility] 90 8-28 Puffs ity of mcg/actuati 00:00: every 4 [facility] as on inhaler 00 (four) Medical hours as Branch needed for Wheezing or Shortness of Breath. albuterol 2020-0 Yes [id number] 2{puff} Inhale 2 [facility] 90 8-28 Puffs ity of mcg/actuati 00:00: every 4 [facility] as on inhaler 00 (four) Medical hours as Branch needed for Wheezing or Shortness of Breath. albuterol 2020-0 Yes [id number] 2{puff} Inhale 2 [facility] 90 8-28 Puffs ity of mcg/actuati 00:00: every 4 [facility] as on inhaler 00 (four) Medical hours as Branch needed for Wheezing or Shortness of Breath. albuterol 2020-0 Yes [id number] 2{puff} Inhale 2 [facility] 90 8-28 Puffs ity of mcg/actuati 00:00: every 4 [facility] on inhaler 00 (four) Medical hours as Branch needed for Wheezing or Shortness of Breath. albuterol 2020-0 Yes [id number] 2{puff} Inhale 2 [facility] 90 8-28 Puffs ity of mcg/actuati 00:00: every 4 [facility] as on inhaler 00 (four) Medical hours as Branch needed for Wheezing or Shortness of Breath. albuterol 2020-0 Yes [id number] 2{puff} Inhale 2 [facility] 90 8-28 Puffs ity of mcg/actuati 00:00: every 4 [facility] as on inhaler 00 (four) Medical hours as Branch needed for Wheezing or Shortness of Breath. albuterol 2020-0 Yes [id number] 2{puff} Inhale 2 [facility] 90 8-28 Puffs ity of mcg/actuati 00:00: every 4 [facility] as on inhaler 00 (four) Medical hours as Branch needed for Wheezing or Shortness of Breath. albuterol 2020-0 Yes [id number] 2{puff} Inhale 2 [facility] 90 8-28 Puffs ity of mcg/actuati 00:00: every 4 [facility] as on inhaler 00 (four) Medical hours as Branch needed for Wheezing or Shortness of Breath. albuterol 2020-0 Yes [id number] 2{puff} Inhale 2 [facility] 90 8-28 Puffs ity of mcg/actuati 00:00: every 4 [facility] as on inhaler 00 (four) Medical hours as Branch needed for Wheezing or Shortness of Breath. albuterol 2020-0 Yes [id number] 2{puff} Inhale 2 [facility] 90 8-28 Puffs ity of mcg/actuati 00:00: every 4 [facility] on inhaler 00 (four) Medical hours as Branch needed for Wheezing or Shortness of Breath. albuterol 2020-0 Yes [id number] 2{puff} Inhale 2 [facility] 90 8-28 Puffs ity of mcg/actuati 00:00: every 4 [facility] on inhaler 00 (four) Medical hours as Branch needed for Wheezing or Shortness of Breath. albuterol 2020-0 Yes [id number] 2{puff} Inhale 2 [facility] 90 8-28 Puffs ity of mcg/actuati 00:00: every 4 [facility] on inhaler 00 (four) Medical hours as Branch needed for Wheezing or Shortness of Breath. albuterol 2020-0 Yes [id number] 2{puff} Inhale 2 [facility] 90 8-28 Puffs ity of mcg/actuati 00:00: every 4 [facility] as on inhaler 00 (four) Medical hours as Branch needed for Wheezing or Shortness of Breath. albuterol 2020-0 Yes [id number] 2{puff} Inhale 2 [facility] 90 8-28 Puffs ity of mcg/actuati 00:00: every 4 [facility] as on inhaler 00 (four) Medical hours as Branch needed for Wheezing or Shortness of Breath. albuterol 2020-0 Yes [id number] 2{puff} Inhale 2 [facility] 90 8-28 Puffs ity of mcg/actuati 00:00: every 4 [facility] on inhaler 00 (four) Medical hours as Branch needed for Wheezing or Shortness of Breath. albuterol 2020-0 Yes [id number] 2{puff} Inhale 2 [facility] 90 8-28 Puffs ity of mcg/actuati 00:00: every 4 [facility] on inhaler 00 (four) Medical hours as Branch needed for Wheezing or Shortness of Breath. albuterol 2020-0 Yes [id number] 2{puff} Inhale 2 [facility] 90 8-28 Puffs ity of mcg/actuati 00:00: every 4 [facility] on inhaler 00 (four) Medical hours as Branch needed for Wheezing or Shortness of Breath. albuterol 2020-0 Yes [id number] 2{puff} Inhale 2 [facility] 90 8-28 Puffs ity of mcg/actuati 00:00: every 4 [facility] as on inhaler 00 (four) Medical hours as Branch needed for Wheezing or Shortness of Breath. albuterol Yes [id number] 2{puff} Inhale 2 [facility] 90 8-28 Puffs ity of mcg/actuati 00:00: every 4 [facility] on inhaler 00 (four) Medical hours as Branch needed for Wheezing or Shortness of Breath. albuterol Yes [id number] 2{puff} Inhale 2 [facility] 90 8-28 Puffs ity of mcg/actuati 00:00: every 4 [facility] on inhaler 00 (four) Medical hours as Branch needed for Wheezing or Shortness of Breath. albuterol Yes [id number] 2{puff} Inhale 2 [facility] 90 8-28 Puffs ity of mcg/actuati 00:00: every 4 [facility] on inhaler 00 (four) Medical hours as Branch needed for Wheezing or Shortness of Breath. albuterol Yes [id number] 2{puff} Inhale 2 [facility] 90 8-28 Puffs ity of mcg/actuati 00:00: every 4 [facility] as on inhaler 00 (four) Medical hours as Branch needed for Wheezing or Shortness of Breath. albuterol Yes [id number] 2{puff} Inhale 2 [facility] 90 8-28 Puffs [...] 00 (four) Medical times Branch daily. dicyclomine 2017-09 Yes 10mg Take 1 [facility] [...] as needed for Pain (scale 4-6). dicyclomine 2018- Yes 10mg Take 1 [facility] (BENTYL) 10 0-05 capsule by [facility] [place] mg capsule 00:[place]: [place] ([place] [facility] times [facility] daily. traMADOL 50 2017- Yes 50mg Take 1 [facility] mg tablet 0-05 tablet by ity o f 00:00: mouth [place] 00 every 6 Medical (six) Branch hours as needed for Pain (scale 4-6). dicyclomine 2018- Yes 10mg Take 1 [facility] (BENTYL) [...] Use 1 [facility] (FLONASE) 09-19 } [place] in ity of 50 15:14: each [place] mcg/actuati 28 nostril Medic al on nasal daily. Branch spray Indication s: 1 [place] each Nostril BID traZODONE 2015-09 Yes 50mg Take 50 mg [facility] (DESYREL) 09-19 by mouth ity of 50 mg 15:14: at [place] tablet 28 bedtime. Medical [facility] fluticasone 2015-09 Yes 1{spray Use 1 [facility] (FLONASE) 09-19 } [place] in ity of 50 15:14: each [place] mcg/actuati 28 nostril Medic al on nasal daily. Branch spray Indication s: 1 [place] each Nostril BID traZODONE 2015-09 Yes 50mg Take 50 mg [facility] (DESYREL) 1-01 by mouth ity of 50 mg 15:14: at [place] tablet 28 bedtime. Medical Branch fluticasone 2015-09 Yes 1{spray Use 1 [facility] (FLONASE) 1- } [place] in ity of 50 15:14: each [place] mcg/actuati 28 nostril Medic al on nasal daily. Branch spray Indication s: 1 [place] each Nostril BID traZODONE 2015-09 Yes 50mg [...] ity o f 40 mg 15:14: daily. [facility] 27 Medical Branch fluticasone 2015-09 Yes 1{spray Use 1 [facility] (FLONASE) 1 } [place] in ity of 50 10:14: each [place] mcg/actuati 28 nostril Medic al on nasal daily. Branch spray Indication s: 1 [place] each Nostril BID traZODONE 2015-09 Yes 50mg Take 50 mg [facility] (DESYREL) 1-01 by mouth ity of 50 mg 10:14: at [place] tablet 28 bedtime. Medical Branch fluticasone 2015-09 Yes 1{spray Use 1 [facility] (FLONASE) 1- } [place] in ity of 50 10:14: each [place] mcg/actuati 28 nostril Medic al on nasal daily. Branch spray Indication s: 1 [place] each Nostril BID traZODONE 2015-09 Yes 50mg Take 50 mg [facility] (DESYREL) 1-01 by mouth ity of 50 mg 10:14: at [place] tablet 28 bedtime. Medical Branch fluticasone 2015-09 Yes 1{spray Use 1 [facility] (FLONASE) 09-19 } [place] in ity of 50 10:14: each [place] mcg/actuati 28 nostril Medic al on nasal daily. Branch spray Indication s: 1 [place] each Nostril BID traZODONE 2015-09 Yes 50mg Take 50 mg [facility] (DESYREL) 01 by mouth ity of 50 mg 10:14: at [place] tablet 28 bedtime. Medical [facility] fluticasone 2015-09 Yes 1{spray Use 1 [facility] (FLONASE) 09-19 } [place] in ity of 50 10:14: each [place] mcg/actuati 28 nostril Medic al on nasal daily. Branch spray Indication s: 1 [place] each Nostril BID traZODONE 2015-09 Yes 50mg Take 50 mg [facility] (DESYREL) 09-19 by mouth ity of 50 mg 10:14: at [place] tablet 28 bedtime. Medical Branch fluticasone 2015-09 Yes 1{spray Use 1 [facility] (FLONASE) 09-19 } [place] in ity of 50 10:14: each [place] mcg/actuati 28 nostril Medic al on nasal daily. Branch spray Indication s: 1 [place] each Nostril BID traZODONE 2015-09 Yes 50mg Take 50 mg [facility] (DESYREL) 09-19 by mouth ity of 50 mg 10:14: at [place] tablet 28 bedtime. Medical Branch fluticasone 2015-09 Yes 1{spray Use 1 [facility] (FLONASE) 09-19 } [place] in ity of 50 10:14: each [place] mcg/actuati 28 nostril Medic al on nasal daily. Branch spray Indication s: 1 [place] each Nostril BID traZODONE 2015-09 Yes 50mg Take 50 mg [facility] (DESYREL) 01 by mouth ity of 50 mg 10:14: at [place] tablet 28 bedtime. Medical Branch fluticasone 2015-09 Yes 1{spray Use 1 [facility] (FLONASE) 09-19 } [place] in ity of 50 10:14: each [place] mcg/actuati 28 nostril Medic al on nasal daily. Branch spray Indication s: 1 [place] each Nostril BID traZODONE 2015-09 Yes 50mg Take 50 mg [facility] (DESYREL) 1-01 by mouth ity of 50 mg 10:14: at [place] tablet 28 bedtime. Medical Branch fluticasone 2015-09 Yes 1{spray Use 1 [facility] (FLONASE) 1- } [place] in ity of 50 10:14: each [place] mcg/actuati 28 nostril Medic al on nasal daily. Branch spray Indication s: 1 [place] each Nostril BID traZODONE 2015-09 Yes 50mg Take 50 mg [facility] (DESYREL) 1-01 by mouth ity of 50 mg 10:14: at [place] tablet 28 bedtime. Medical Branch fluticasone 2015-09 Yes 1{spray Use 1 [facility] (FLONASE) 1 } [place] in ity of 50 10:14: each [place] mcg/actuati 28 nostril Medic al on nasal daily. Branch spray Indication s: 1 [place] each Nostril BID traZODONE 2015-09 Yes 50mg Take 50 mg [facility] (DESYREL) 01 by mouth ity of 50 mg 10:14: at [place] tablet 28 bedtime. Medical Branch fluticasone 2015-09 Yes 1{spray Use 1 [facility] (FLONASE) 09-19 } [place] in ity of 50 10:14: each [place] mcg/actuati 28 nostril Medic al on nasal daily. Branch spray Indication s: 1 [place] each Nostril BID traZODONE 2015-09 Yes 50mg Take 50 mg [facility] (DESYREL) 1-01 by mouth ity of 50 mg 10:14: at [place] tablet 28 bedtime. Medical Branch fluticasone 2015-09 Yes 1{spray Use 1 [facility] (FLONASE) 1 } [place] in ity of 50 10:14: each [place] mcg/actuati 28 nostril Medic al on nasal daily. Branch spray Indication s: 1 [place] each Nostril BID traZODONE 2015-09 Yes 50mg Take 50 mg [facility] (DESYREL) 1-01 by mouth ity of 50 mg 10:14: at [place] tablet 28 bedtime. Medical Branch fluticasone 2015-09 Yes 1{spray Use 1 [facility] (FLONASE) 1- } [place] in ity of 50 10:14: each [place] mcg/actuati 28 nostril Medic al on nasal daily. Branch spray Indication s: 1 [place] each Nostril BID traZODONE 2015-09 Yes 50mg Take 50 mg [facility] (DESYREL) 1-01 by mouth ity of 50 mg 10:14: at [place] tablet 28 bedtime. Medical Branch fluticasone 2015-09 Yes 1{spray Use 1 [facility] (FLONASE) 1 } [place] in ity of 50 10:14: each [place] mcg/actuati 28 nostril Medic al on nasal daily. Branch spray Indication s: 1 [place] each Nostril BID traZODONE 2015-09 Yes 50mg Take 50 mg [facility] (DESYREL) 101 by mouth ity of 50 mg 10:14: at [place] tablet 28 bedtime. Medical Branch fluticasone 2015-09 Yes 1{spray Use 1 [facility] (FLONASE) 09-19 } [place] in ity of 50 10:14: each [place] mcg/actuati 28 nostril Medic al on nasal daily. Branch spray Indication s: 1 [place] each Nostril BID traZODONE 2015-09 Yes 50mg Take 50 mg [facility] (DESYREL) 101 by mouth ity of 50 mg 10:14: at [place] tablet 28 bedtime. Medical Branch fluticasone 2015-09 Yes 1{spray Use 1 [facility] (FLONASE) 09-19 } [place] in ity of 50 10:14: each [place] mcg/actuati 28 nostril Medic al on nasal daily. Branch spray Indication s: 1 [place] each Nostril BID traZODONE 2015-09 Yes 50mg Take 50 mg [facility] (DESYREL) 101 by mouth ity of 50 mg 10:14: at [place] tablet 28 bedtime. Medical Branch fluticasone 2015-09 Yes 1{spray Use 1 [facility] (FLONASE) 1 } [place] in ity of 50 10:14: each [place] mcg/actuati 28 nostril Medic al on nasal daily. Branch spray Indication s: 1 [place] each Nostril BID traZODONE 2015-09 Yes 50mg Take 50 mg [facility] (DESYREL) 1-01 by mouth ity of 50 mg 10:14: at [place] tablet 28 bedtime. Medical Branch fluticasone 2015-09 Yes 1{spray Use 1 [facility] (FLONASE) 09-19 } [place] in ity of 50 10:14: each [place] mcg/actuati 28 nostril Medic al on nasal daily. Branch spray Indication s: 1 [place] each Nostril BID traZODONE 2015-09 Yes 50mg Take 50 mg [facility] (DESYREL) 1-01 by mouth ity of 50 mg 10:14: at [place] tablet 28 bedtime. Medical Branch fluticasone 2015-09 Yes 1{spray Use 1 [facility] (FLONASE) 1 } [place] in ity of 50 10:14: each [place] mcg/actuati 28 nostril Medic al on nasal daily. Branch spray Indication s: 1 [place] each Nostril BID traZODONE 2015-09 Yes 50mg Take 50 mg [facility] (DESYREL) -01 by mouth ity of 50 mg 10:14: at [place] tablet 28 bedtime. Medical Branch fluticasone 2015-09 Yes 1{spray Use 1 [facility] (FLONASE) 09-19 } [place] in ity of 50 10:14: each [place] mcg/actuati 28 nostril Medic al on nasal daily. Branch spray Indication s: 1 [place] each Nostril BID traZODONE 2015-09 Yes 50mg Take 50 mg [facility] (DESYREL) 09-19 by mouth ity of 50 mg 10:14: at [place] tablet 28 bedtime. Medical Branch fluticasone 2015-09 Yes 1{spray Use 1 [facility] (FLONASE) 09-19 } [place] in ity of 50 10:14: each [place] mcg/actuati 28 nostril Medic al on nasal daily. Branch spray Indication s: 1 [place] each Nostril BID traZODONE 2015-09 Yes 50mg Take 50 mg [facility] (DESYREL) 1-01 by mouth ity of 50 mg 10:14: at [place] tablet 28 bedtime. Medical Branch fluticasone 2015-09 Yes 1{spray Use 1 [facility] (FLONASE) 1 } [place] in ity of 50 10:14: each [place] mcg/actuati 28 nostril Medic al on nasal daily. Branch spray Indication s: 1 [place] each Nostril BID traZODONE 2015-09 Yes 50mg Take 50 mg [facility] (DESYREL) 1-01 by mouth ity of 50 mg 10:14: at [place] tablet 28 bedtime. Medical Branch fluticasone 2015-09 Yes 1{spray Use 1 [facility] (FLONASE) 1 } [place] in ity of 50 10:14: each [place] mcg/actuati 28 nostril Medic al on nasal daily. Branch spray Indication s: 1 [place] each Nostril BID traZODONE 2015-09 Yes 50mg Take 50 mg [facility] (DESYREL) 1-01 by mouth ity of 50 mg 10:14: at [place] tablet 28 bedtime. Medical Branch fluticasone 2015-09 Yes 1{spray Use 1 [facility] (FLONASE) 09-19 } [place] in ity of 50 10:14: each [place] mcg/actuati 28 nostril Medic al on nasal daily. Branch spray Indication s: 1 [place] each Nostril BID traZODONE 2015-09 Yes 50mg Take 50 mg [facility] (DESYREL) 01 by mouth ity of 50 mg 10:14: at [place] tablet 28 bedtime. Medical Branch fluticasone 2015-09 Yes 1{spray Use 1 [facility] (FLONASE) 09-19 } [place] in ity of 50 10:14: each [place] mcg/actuati 28 nostril Medic al on nasal daily. Branch spray Indication s: 1 [place] each Nostril BID traZODONE 2015-09 Yes 50mg Take 50 mg [facility] (DESYREL) 101 by mouth ity of 50 mg 10:14: at [place] tablet 28 bedtime. Medical Branch fluticasone 2015-09 Yes 1{spray Use 1 [facility] (FLONASE) 1 } [place] in ity of 50 10:14: each [place] mcg/actuati 28 nostril Medic al on nasal daily. Branch spray Indication s: 1 [place] each Nostril BID traZODONE 2015-09 Yes 50mg Take 50 mg [facility] (DESYREL) 1-01 by mouth ity of 50 mg 10:14: at [place] tablet 28 bedtime. Medical Branch fluticasone 2015-09 Yes 1{spray Use 1 [facility] (FLONASE) 1 } [place] in ity of 50 10:14: each [place] mcg/actuati 28 nostril Medic al on nasal daily. Branch spray Indication s: 1 [place] each Nostril BID traZODONE 2015-09 Yes 50mg Take 50 mg [facility] (DESYREL) 1-01 by mouth ity of 50 mg 10:14: at [place] tablet 28 bedtime. Medical Branch fluticasone 2015-09 Yes 1{spray Use 1 [facility] (FLONASE) 1 } [place] in ity of 50 10:14: each [place] mcg/actuati 28 nostril Medic al on nasal daily. Branch spray Indication s: 1 [place] each Nostril BID traZODONE 2015-09 Yes 50mg Take 50 mg [facility] (DESYREL) 1-01 by mouth ity of 50 mg 10:14: at [place] tablet 28 bedtime. Medical Branch fluticasone 2015-09 Yes 1{spray Use 1 [facility] (FLONASE) 09-19 } [place] in ity of 50 10:14: each [place] mcg/actuati 28 nostril Medic al on nasal daily. Branch spray Indication s: 1 [place] each Nostril BID traZODONE 2015-09 Yes 50mg Take 50 mg [facility] (DESYREL) 101 by mouth ity of 50 mg 10:14: at [place] tablet 28 bedtime. Medical Branch fluticasone 2015-09 Yes 1{spray Use 1 [facility] (FLONASE) 09-19 } [place] in ity of 50 10:14: each [place] mcg/actuati 28 nostril Medic al on nasal daily. Branch spray Indication s: 1 [place] each Nostril BID traZODONE 2015-09 Yes 50mg Take 50 mg [facility] (DESYREL) 09-19 by mouth ity of 50 mg 10:14: at [place] tablet 28 bedtime. Medical Branch fluticasone 2015-09 Yes 1{spray Use 1 [facility] (FLONASE) 1 } [place] in ity of 50 10:14: each [place] mcg/actuati 28 nostril Medic al on nasal daily. Branch spray Indication s: 1 [place] each Nostril BID traZODONE 2015-09 Yes 50mg Take 50 mg [facility] (DESYREL) 1-01 by mouth ity of 50 mg 10:14: at [place] tablet 28 bedtime. Medical Branch fluticasone 2015-09 Yes 1{spray Use 1 [facility] (FLONASE) 1-01 } [place] in ity of 50 10:14: each [place] mcg/actuati 28 nostril Medic al on nasal daily. Branch spray Indication s: 1 [place] each Nostril BID traZODONE 2015-09 Yes 50mg Take 50 mg [facility] (DESYREL) 1-01 by mouth ity of 50 mg 10:14: at [place] tablet 28 bedtime. Medical Branch fluticasone 2015-09 Yes 1{spray Use 1 [facility] (FLONASE) 09-19 } [place] in ity of 50 10:14: each [place] mcg/actuati 28 nostril Medic al on nasal daily. Branch spray Indication s: 1 [place] each Nostril BID traZODONE 2015-09 Yes 50mg Take 50 mg [facility] (DESYREL) -01 by mouth ity of 50 mg 10:14: at [place] tablet 28 bedtime. Medical Branch fluticasone 2015-09 Yes 1{spray Use 1 [facility] (FLONASE) 09-19 } [place] in ity of 50 10:14: each [place] mcg/actuati 28 nostril Medic al on nasal daily. Branch spray Indication s: 1 [place] each Nostril BID traZODONE 2015-09 Yes 50mg Take 50 mg [facility] (DESYREL) 09-19 by mouth ity of 50 mg 10:14: at [place] tablet 28 bedtime. Medical Branch fluticasone 2015-09 Yes 1{spray Use 1 [facility] (FLONASE) 09-19 } [place] in ity of 50 10:14: each [place] mcg/actuati 28 nostril Medic al on nasal daily. Branch spray Indication s: 1 [place] each Nostril BID traZODONE 2015-09 Yes 50mg Take 50 mg [facility] (DESYREL) 1-01 by mouth ity of 50 mg 10:14: at [place] tablet 28 bedtime. Medical Branch fluticasone 2015-09 Yes 1{spray Use 1 [facility] (FLONASE) 09-19 } [place] in ity of 50 10:14: each [place] mcg/actuati 28 nostril Medic al on nasal daily. Branch spray Indication s: 1 [place] each Nostril BID traZODONE 2015-09 Yes 50mg Take 50 mg [facility] (DESYREL) 1-01 by mouth ity of 50 mg 10:14: at [place] tablet 28 bedtime. Medical Branch fluticasone 2015-09 Yes 1{spray Use 1 [facility] (FLONASE) 1 } [place] in ity of 50 10:14: each [place] mcg/actuati 28 nostril Medic al on nasal daily. Branch spray Indication s: 1 [place] each Nostril BID traZODONE 2015-09 Yes 50mg Take 50 mg [facility] (DESYREL) 1-01 by mouth ity of 50 mg 10:14: at [place] tablet 28 bedtime. Medical Branch fluticasone 2015-09 Yes 1{spray Use 1 [facility] (FLONASE) 09-19 } [place] in ity of 50 10:14: each [place] mcg/actuati 28 nostril Medic al on nasal daily. Branch spray Indication s: 1 [place] each Nostril BID traZODONE 2015-09 Yes 50mg Take 50 mg [facility] (DESYREL) 01 by mouth ity of 50 mg 10:14: at [place] tablet 28 bedtime. Medical Branch fluticasone 2015-09 Yes 1{spray Use 1 [facility] (FLONASE) 09-19 } [place] in ity of 50 10:14: each [place] mcg/actuati 28 nostril Medic al on nasal daily. Branch spray Indication s: 1 [place] each Nostril BID traZODONE 2015-09 Yes 50mg Take 50 mg [facility] (DESYREL) 1-01 by mouth ity of 50 mg 10:14: at [place] tablet 28 bedtime. Medical Branch fluticasone 2015-09 Yes 1{spray Use 1 [facility] (FLONASE) 1 } [place] in ity of 50 10:14: each [place] mcg/actuati 28 nostril Medic al on nasal daily. Branch spray Indication s: 1 [place] each Nostril BID traZODONE 2015-09 Yes 50mg Take 50 mg [facility] (DESYREL) 1-01 by mouth ity of 50 mg 10:14: at [place] tablet 28 bedtime. Medical Branch fluticasone 2015-09 Yes 1{spray Use 1 [facility] (FLONASE) 1- } [place] in ity of 50 10:14: each [place] mcg/actuati 28 nostril Medic al on nasal daily. Branch spray Indication s: 1 [place] each Nostril BID traZODONE 2015-09 Yes 50mg Take 50 mg [facility] (DESYREL) 09-19 by mouth ity of 50 mg 10:14: at [place] tablet 28 bedtime. Medical Branch fluticasone 2015-09 Yes 1{spray Use 1 [facility] (FLONASE) 09-19 } [place] in ity of 50 10:14: each [place] mcg/actuati 28 nostril Medic al on nasal daily. Branch spray Indication s: 1 [place] each Nostril BID traZODONE 2015-09 Yes 50mg Take 50 mg [facility] (DESYREL) 09-19 by mouth ity of 50 mg 10:14: at [place] tablet 28 bedtime. Medical Branch fluticasone 2015-09 Yes 1{spray Use 1 [facility] (FLONASE) 09-19 } [place] in ity of 50 10:14: each [place] mcg/actuati 28 nostril Medic al on nasal daily. Branch spray Indication s: 1 [place] each Nostril BID traZODONE 2015-09 Yes 50mg Take 50 mg [facility] (DESYREL) 09-19 by mouth ity of 50 mg 10:14: at [place] tablet 28 bedtime. Medical Branch fluticasone 2015-09 Yes 1{spray Use 1 [facility] (FLONASE) 09-19 } [place] in ity of 50 10:14: each [place] mcg/actuati 28 nostril Medic al on nasal daily. Branch spray Indication s: 1 [place] each Nostril BID traZODONE 2015-09 Yes 50mg Take 50 mg [facility] (DESYREL) 09-19 by mouth ity of 50 mg 10:14: at [place] tablet 28 bedtime. Medical Branch fluticasone 2015-09 Yes 1{spray Use 1 [facility] (FLONASE) 09-19 } [place] in ity of 50 10:14: each [place] mcg/actuati 28 nostril Medic al on nasal daily. Branch spray Indication s: 1 [place] each Nostril BID traZODONE 2015-09 Yes 50mg Take 50 mg [facility] (DESYREL) 09-19 by mouth ity of 50 mg 10:14: at [place] tablet 28 bedtime. [facility] Branch fluticasone 2015-09 Yes 1{spray Use 1 [facility] (FLONASE) 09-19 } [place] in ity of 50 10:14: each [place] mcg/actuati 28 nostril Medic al on nasal daily. Branch spray Indication s: 1 [place] each Nostril BID traZODONE 2015-09 Yes 50mg Take 50 mg [facility] (DESYREL) 1-01 by mouth ity of 50 mg 10:14: at [place] tablet 28 bedtime. [facility] Branch fluticasone 2015-09 Yes 1{spray Use 1 [facility] (FLONASE) 09-19 } [place] in ity of 50 10:14: each [place] mcg/actuati 28 nostril Medic al on nasal daily. Branch spray Indication s: 1 [place] each Nostril BID traZODONE 2015-09 Yes 50mg Take 50 mg [facility] (DESYREL) 01 by mouth ity of 50 mg 10:14: at [place] tablet 28 bedtime. [facility] Branch fluticasone 2015-09 Yes 1{spray Use 1 [facility] (FLONASE) 09-19 } [place] in ity of 50 10:14: each [place] mcg/actuati 28 nostril Medic al on nasal daily. Branch spray Indication s: 1 [place] each Nostril BID traZODONE 2015-09 Yes 50mg Take 50 mg [facility] (DESYREL) 09-19 by mouth ity of 50 mg 10:14: at [place] tablet 28 bedtime. [facility] Branch fluticasone 2015-09 Yes 1{spray Use 1 [facility] (FLONASE) 09-19 } [place] in ity of 50 10:14: each [place] mcg/actuati 28 nostril Medic al on nasal daily. Branch spray Indication s: 1 [place] each Nostril BID traZODONE 2015-09 Yes 50mg Take 50 mg [facility] (DESYREL) 101 by mouth ity of 50 mg 10:14: at [place] tablet 28 bedtime. [facility] fluticasone 2015-09 Yes 1{spray Use 1 [facility] (FLONASE) 09-19 } [place] in ity of 50 10:14: each [place] mcg/actuati 28 nostril Medic al on nasal daily. Branch spray Indication s: 1 [place] each Nostril BID traZODONE 2015-09 Yes 50mg Take 50 mg [facility] (DESYREL) 1-01 by mouth ity of 50 mg 10:14: at [place] tablet 28 bedtime. [facility] fluticasone 2015-09 Yes 1{spray Use 1 [facility] (FLONASE) 1 } [place] in ity of 50 10:14: each [place] mcg/actuati 28 nostril Medic al on nasal daily. Branch spray Indication s: 1 [place] each Nostril BID traZODONE 2015-09 Yes 50mg Take 50 mg [facility] (DESYREL) 1-01 by mouth ity of 50 mg 10:14: at [place] tablet 28 bedtime. [facility] fluticasone 2015-09 Yes 1{spray Use 1 [facility] (FLONASE) 09-19 } [place] in ity of 50 10:14: each [place] mcg/actuati 28 nostril Medic al on nasal daily. Branch spray Indication s: 1 [place] each Nostril BID traZODONE 2015-09 Yes 50mg Take 50 mg [facility] (DESYREL) 01 by mouth ity of 50 mg 10:14: at [place] tablet 28 bedtime. [facility] fluticasone 2015-09 Yes 1{spray Use 1 [facility] (FLONASE) 09-19 } [place] in ity of 50 10:14: each [place] mcg/actuati 28 nostril Medic al on nasal daily. Branch spray Indication s: 1 [place] each Nostril BID traZODONE 2015-09 Yes 50mg Take 50 mg [facility] (DESYREL) 101 by mouth ity of 50 mg 10:14: at [place] tablet 28 bedtime. [facility] fluticasone 2015-09 Yes 1{spray Use 1 [facility] (FLONASE) 09-19 } [place] in ity of 50 10:14: each [place] mcg/actuati 28 nostril Medic al on nasal daily. Branch spray Indication s: 1 [place] each Nostril BID traZODONE 2015-09 Yes 50mg Take 50 mg Un michele (DESYREL) 1-01 by mouth ity of 50 mg 10:14: at [place] tablet 28 bedtime. [facility] fluticasone 2015-09 Yes 1{spray Use 1 Un mihcele (FLONASE) 1 } [place] in ity of 50 10:14: each [place] mcg/actuati 28 nostril Medic al on nasal daily. Branch spray Indication s: 1 [place] each Nostril BID traZODONE 2015-09 Yes 50mg Take 50 mg Un michele (DESYREL) 01 by mouth ity of 50 mg 10:14: at [place] tablet 28 bedtime. [facility] fluticasone 2015-09 Yes 1{spray Use 1 Un michele (FLONASE) 09-19 } [place] in ity of 50 10:14: each [place] mcg/actuati 28 nostril Medic al on nasal daily. Branch spray Indication s: 1 [place] each Nostril BID traZODONE 2015-09 Yes 50mg Take 50 mg Un michele (DESYREL) 09-19 by mouth ity of 50 mg 10:14: at [place] tablet 28 bedtime. [facility] fluticasone 2015-09 Yes 1{spray Use 1 Un michele (FLONASE) 09-19 } [place] in ity of 50 10:14: each [place] mcg/actuati 28 nostril Medic al on nasal daily. Branch spray Indication s: 1 [place] each Nostril BID traZODONE 2015-09 Yes 50mg Take 50 mg Un michele (DESYREL) 09-19 by mouth ity of 50 mg 10:14: at [place] tablet 28 bedtime. [facility] fluticasone 2015-09 Yes 1{spray Use 1 Un mcihele (FLONASE) 09-19 } [place] in ity of 50 10:14: each [place] mcg/actuati 28 nostril Medic al on nasal daily. Branch spray Indication s: 1 [place] each Nostril BID traZODONE 2015-09 Yes 50mg Take 50 mg Un michele (DESYREL) 09-19 by mouth ity of 50 mg 10:14: at [place] tablet 28 bedtime. [facility] fluticasone 2015-09 Yes 1{spray Use 1 Un michele (FLONASE) 09-19 } [place] in ity of 50 10:14: each [place] mcg/actuati 28 nostril Medic al on nasal daily. Branch spray Indication s: 1 [place] each Nostril BID traZODONE 2015-09 Yes 50mg Take 50 mg Un michele (DESYREL) 01 by mouth ity of 50 mg 10:14: at [place] tablet 28 bedtime. [facility] fluticasone 2015-09 Yes 1{spray Use 1 Un michele (FLONASE) 09-19 } [place] in ity of 50 10:14: each [place] mcg/actuati 28 nostril Medic al on nasal daily. Branch spray Indication s: 1 [place] each Nostril BID traZODONE 2015-09 Yes 50mg Take 50 mg Un michele (DESYREL) 1-01 by mouth ity of 50 mg 10:14: at [place] tablet 28 bedtime. [facility] fluticasone 2015-09 Yes 1{spray Use 1 Un michele (FLONASE) 1 } [place] in ity of 50 10:14: each [place] mcg/actuati 28 nostril Medic al on nasal daily. Branch spray Indication s: 1 [place] each Nostril BID traZODONE 2015-09 Yes 50mg Take 50 mg Un michele (DESYREL) 1-01 by mouth ity of 50 mg 10:14: at [place] tablet 28 bedtime. [facility] fluticasone 2015-09 Yes 1{spray Use 1 Un michele (FLONASE) 09-19 } [place] in ity of 50 10:14: each [place] mcg/actuati 28 nostril Medic al on nasal daily. Branch spray Indication s: 1 [place] each Nostril BID traZODONE 2015-09 Yes 50mg Take 50 mg Un michele (DESYREL) 01 by mouth ity of 50 mg 10:14: at [place] tablet 28 bedtime. [facility] fluticasone 2015-09 Yes 1{spray Use 1 Un michele (FLONASE) 09-19 } [place] in ity of 50 10:14: each [place] mcg/actuati 28 nostril Medic al on nasal daily. Branch spray Indication s: 1 [place] each Nostril BID traZODONE 2015-09 Yes 50mg Take 50 mg Un michele (DESYREL) 1-01 by mouth ity of 50 mg 10:14: at [place] tablet 28 bedtime. [facility] fluticasone 2015-09 Yes 1{spray Use 1 Un michele (FLONASE) 1 } [place] in ity of 50 10:14: each [place] mcg/actuati 28 nostril Medic al on nasal daily. Branch spray Indication s: 1 [place] each Nostril BID traZODONE 2015-09 Yes 50mg Take 50 mg Un michele (DESYREL) 1-01 by mouth ity of 50 mg 10:14: at [place] tablet 28 bedtime. [facility] fluticasone 2015-09 Yes 1{spray Use 1 Un michele (FLONASE) 09-19 } [place] in ity of 50 10:14: each [place] mcg/actuati 28 nostril Medic al on nasal daily. Branch spray Indication s: 1 [place] each Nostril BID traZODONE 2015-09 Yes 50mg Take 50 mg Un michele (DESYREL) 09-19 by mouth ity of 50 mg 10:14: at [place] tablet 28 bedtime. [facility] omeprazole 2015-09 Yes 40mg Take 40 mg U nivers (PRILOSEC) 1- by mouth ity o f 40 mg 10:14: daily. [address] omeprazole 2015-09 Yes 40mg Take 40 mg U nivers (PRILOSEC) 09-19 by mouth ity o f 40 mg 10:14: daily. [address] omeprazole 2015-09 Yes 40mg Take 40 mg U nivers (PRILOSEC) - by mouth ity o f 40 mg 10:14: daily. [address] omeprazole 2015-09 Yes 40mg Take 40 mg U nivers (PRILOSEC) 1- by mouth ity o f 40 mg 10:14: daily. [address] omeprazole 2015-09 Yes 40mg Take 40 mg U nivers (PRILOSEC) 1- by mouth ity o f 40 mg 10:14: daily. [address] omeprazole 2015-09 Yes 40mg Take 40 mg U nivers (PRILOSEC) 1- by mouth ity o f 40 mg 10:14: daily. [address] omeprazole 2015-09 Yes 40mg Take 40 mg U nivers (PRILOSEC) 1-01 by mouth ity o f 40 mg 10:14: daily. [address] omeprazole 2015-09 Yes 40mg Take 40 mg U nivers (PRILOSEC) 1-01 by mouth ity o f 40 mg 10:14: daily. [address] omeprazole 2015-09 Yes 40mg Take 40 mg U nivers (PRILOSEC) 1-01 by mouth ity o f 40 mg 10:14: daily. [address] omeprazole 2015-09 Yes 40mg Take 40 mg U nivers (PRILOSEC) 1-01 by mouth ity o f 40 mg 10:14: daily. [address] Branch omeprazole 2015-09 Yes 40mg Take 40 mg U nivers (PRILOSEC) 1-01 by mouth ity o f 40 mg 10:14: daily. [address] omeprazole 2015-09 Yes 40mg Take 40 mg U nivers (PRILOSEC) 1-01 by mouth ity o f 40 mg 10:14: daily. [place] [id number] [facility] omeprazole 2015-09 Yes 40mg Take 40 mg U nivers (PRILOSEC) 1-01 by mouth ity o f 40 mg 10:14: daily. [address] Branch omeprazole 2015-09 Yes 40mg Take 40 mg U nivers (PRILOSEC) 1-01 by mouth ity o f 40 mg 10:14: daily. [address] omeprazole 2015-09 Yes 40mg Take 40 mg U nivers (PRILOSEC) 1-01 by mouth ity o f 40 mg 10:14: daily. [address] Branch omeprazole 2015-09 Yes 40mg Take 40 mg U nivers (PRILOSEC) 1-01 by mouth ity o f 40 mg 10:14: daily. [address] omeprazole 2015-09 Yes 40mg Take 40 mg U nivers (PRILOSEC) 1-01 by mouth ity o f 40 mg 10:14: daily. [address] omeprazole 2015-09 Yes 40mg Take 40 mg U nivers (PRILOSEC) 1-01 by mouth ity o f 40 mg 10:14: daily. [address] Branch omeprazole 2015-09 Yes 40mg Take 40 mg U nivers (PRILOSEC) 1-01 by mouth ity o f 40 mg 10:14: daily. [address] omeprazole 2015-09 Yes 40mg Take 40 mg U nivers (PRILOSEC) 1-01 by mouth ity o f 40 mg 10:14: daily. [address] Branch omeprazole 2015-09 Yes 40mg Take 40 mg U nivers (PRILOSEC) 1-01 by mouth ity o f 40 mg 10:14: daily. [address] omeprazole 2015-09 Yes 40mg Take 40 mg U nivers (PRILOSEC) 1-01 by mouth ity o f 40 mg 10:14: daily. [address] omeprazole 2015-09 Yes 40mg Take 40 mg U nivers (PRILOSEC) 1-01 by mouth ity o f 40 mg 10:14: daily. [address] omeprazole 2015-09 Yes 40mg Take 40 mg U nivers (PRILOSEC) 1-01 by mouth ity o f 40 mg 10:14: daily. [address] omeprazole 2015-09 Yes 40mg Take 40 mg U nivers (PRILOSEC) 1-01 by mouth ity o f 40 mg 10:14: daily. [address] omeprazole 2015-09 Yes 40mg Take 40 mg U nivers (PRILOSEC) 1-01 by mouth ity o f 40 mg 10:14: daily. [address] omeprazole 2015-09 Yes 40mg Take 40 mg U nivers (PRILOSEC) 1-01 by mouth ity o f 40 mg 10:14: daily. [address] omeprazole 2015-09 Yes 40mg Take 40 mg U nivers (PRILOSEC) 1-01 by mouth ity o f 40 mg 10:14: daily. [address] omeprazole 2015-09 Yes 40mg Take 40 mg U nivers (PRILOSEC) 1-01 by mouth ity o f 40 mg 10:14: daily. [address] omeprazole 2015-09 Yes 40mg Take 40 mg U nivers (PRILOSEC) 1-01 by mouth ity o f 40 mg 10:14: daily. [address] omeprazole 2015-09 Yes 40mg Take 40 mg U nivers (PRILOSEC) 1-01 by mouth ity o f 40 mg 10:14: daily. [address] omeprazole 2015-09 Yes 40mg Take 40 mg U nivers (PRILOSEC) 1-01 by mouth ity o f 40 mg 10:14: daily. [address] omeprazole 2015-09 Yes 40mg Take 40 mg U nivers (PRILOSEC) 1-01 by mouth ity o f 40 mg 10:14: daily. [address] omeprazole 2015-09 Yes 40mg Take 40 mg U nivers (PRILOSEC) 1-01 by mouth ity o f 40 mg 10:14: daily. [address] omeprazole 2015-09 Yes 40mg Take 40 mg U nivers (PRILOSEC) 1-01 by mouth ity o f 40 mg 10:14: daily. [address] omeprazole 2015-09 Yes 40mg Take 40 mg U nivers (PRILOSEC) 1-01 by mouth ity o f 40 mg 10:14: daily. [place] [id number] [facility] omeprazole 2015-09 Yes 40mg Take 40 mg U nivers (PRILOSEC) 1-01 by mouth ity o f 40 mg 10:14: daily. [address] omeprazole 2015-09 Yes 40mg Take 40 mg U nivers (PRILOSEC) 1-01 by mouth ity o f 40 mg 10:14: daily. [address] omeprazole 2015-09 Yes 40mg Take 40 mg U nivers (PRILOSEC) 1-01 by mouth ity o f 40 mg 10:14: daily. [address] Branch omeprazole 2015-09 Yes 40mg Take 40 mg U nivers (PRILOSEC) 1-01 by mouth ity o f 40 mg 10:14: daily. [address] omeprazole 2015-09 Yes 40mg Take 40 mg U nivers (PRILOSEC) 1-01 by mouth ity o f 40 mg 10:14: daily. [address] omeprazole 2015-09 Yes 40mg Take 40 mg U nivers (PRILOSEC) 1-01 by mouth ity o f 40 mg 10:14: daily. [address] Branch omeprazole 2015-09 Yes 40mg Take 40 mg U nivers (PRILOSEC) 1-01 by mouth ity o f 40 mg 10:14: daily. [address] omeprazole 2015-09 Yes 40mg Take 40 mg U nivers (PRILOSEC) 1-01 by mouth ity o f 40 mg 10:14: daily. [address] omeprazole 2015-09 Yes 40mg Take 40 mg U nivers (PRILOSEC) 1-01 by mouth ity o f 40 mg 10:14: daily. [address] omeprazole 2015-09 Yes 40mg Take 40 mg U nivers (PRILOSEC) 1-01 by mouth ity o f 40 mg 10:14: daily. [address] omeprazole 2015-09 Yes 40mg Take 40 mg U nivers (PRILOSEC) 1-01 by mouth ity o f 40 mg 10:14: daily. [address] omeprazole 2015-09 Yes 40mg Take 40 mg U nivers (PRILOSEC) 1-01 by mouth ity o f 40 mg 10:14: daily. [address] omeprazole 2015-09 Yes 40mg Take 40 mg U nivers (PRILOSEC) 1-01 by mouth ity o f 40 mg 10:14: daily. [address] omeprazole 2015-09 Yes 40mg Take 40 mg U nivers (PRILOSEC) 1- by mouth ity o f 40 mg 10:14: daily. [address] omeprazole 2015-09 Yes 40mg Take 40 mg U nivers (PRILOSEC) 1-01 by mouth ity o f 40 mg 10:14: daily. [address] omeprazole 2015-09 Yes 40mg Take 40 mg U nivers (PRILOSEC) 1- by mouth ity o f 40 mg 10:14: daily. [address] omeprazole 2015-09 Yes 40mg Take 40 mg U nivers (PRILOSEC) 1-01 by mouth ity o f 40 mg 10:14: daily. [address] omeprazole 2015-09 Yes 40mg Take 40 mg U nivers (PRILOSEC) 1-01 by mouth ity o f 40 mg 10:14: daily. [address] omeprazole 2015-09 Yes 40mg Take 40 mg U nivers (PRILOSEC) 1-01 by mouth ity o f 40 mg 10:14: daily. [address] omeprazole 2015-09 Yes 40mg Take 40 mg U nivers (PRILOSEC) 1-01 by mouth ity o f 40 mg 10:14: daily. [address] omeprazole 2015-09 Yes 40mg Take 40 mg U nivers (PRILOSEC) 1-01 by mouth ity o f 40 mg 10:14: daily. [place] [id number] [facility] omeprazole 2015-09 Yes 40mg Take 40 mg U nivers (PRILOSEC) 1-01 by mouth ity o f 40 mg 10:14: daily. [place] [address] [facility] omeprazole 2015-09 Yes 40mg Take 40 mg U nivers (PRILOSEC) 1-01 by mouth ity o f 40 mg 10:14: daily. [address] Branch omeprazole 2015-09 Yes 40mg Take 40 mg U nivers (PRILOSEC) 1- by mouth ity o f 40 mg 10:14: daily. [place] [address] [facility] omeprazole 2015-09 Yes 40mg Take 40 mg U nivers (PRILOSEC) 1- by mouth ity o f 40 mg 10:14: daily. [address] Branch omeprazole 2015-09 Yes 40mg Take 40 mg U nivers (PRILOSEC) - by mouth ity o f 40 mg 10:14: daily. [address] Branch omeprazole 2015-09 Yes 40mg Take 40 mg U nivers (PRILOSEC) 09-19 by mouth ity o f 40 mg 10:14: daily. [address] Branch omeprazole 2015-09 Yes 40mg Take 40 mg U nivers (PRILOSEC) 09-19 by mouth ity o f 40 mg 10:14: daily. [address] lisinopril 2015-09 Yes 20mg Take 1 [...] 00 (two) [facility] daily. lisinopril 2015-1 Yes 20mg Take 1 Unive rs (PRINIVIL,Z [...] Medical times Branch daily. Immunizations Ordered Filled Date Status Comments Source Immunization Name Immunization Name SARS-COV-2 COVID-19 2021-02-07 Completed Unive rsity of PFIZER VACCINE 00:00:00 [facility] SARS-COV-2 COVID-19 2021-02-07 Completed Unive rsity of PFIZER VACCINE 00:00:00 [facility] SARS-COV-2 COVID-19 2021-02-07 Completed Unive rsity of PFIZER VACCINE 00:00:00 [facility] SARS-COV-2 COVID-19 2021-02-07 Completed Unive rsity of PFIZER VACCINE 00:00:00 [place] [facility] SARS-COV-2 COVID-19 2021-02-07 Completed Unive rsity of PFIZER VACCINE 00:00:00 [facility] SARS-COV-2 COVID-19 2021-02-07 Completed Unive rsity of PFIZER VACCINE 00:00:00 [facility] SARS-COV-2 COVID-19 2021-02-07 Completed Unive rsity of PFIZER VACCINE 00:00:00 [facility] SARS-COV-2 COVID-19 2021-02-07 Completed Unive rsity of PFIZER VACCINE 00:00:00 [facility] SARS-COV-2 COVID-19 2021-02-07 Completed Unive rsity of PFIZER VACCINE 00:00:00 [facility] SARS-COV-2 COVID-19 2021-02-07 Completed Unive rsity of PFIZER VACCINE 00:00:00 [facility] SARS-COV-2 COVID-19 2021-02-07 Completed Unive rsity of PFIZER VACCINE 00:00:00 [facility] SARS-COV-2 COVID-19 2021-02-07 Completed Unive rsity of PFIZER VACCINE 00:00:00 [facility] SARS-COV-2 COVID-19 2021-02-07 Completed Unive rsity of PFIZER VACCINE 00:00:00 [facility] SARS-COV-2 COVID-19 2021-02-07 Completed Unive rsity of PFIZER VACCINE 00:00:00 [facility] SARS-COV-2 COVID-19 2021-02-07 Completed Unive rsity of PFIZER VACCINE 00:00:00 [facility] SARS-COV-2 COVID-19 2021-02-07 Completed Unive rsity of PFIZER VACCINE 00:00:00 [facility] SARS-COV-2 COVID-19 2021-02-07 Completed Unive rsity of PFIZER VACCINE 00:00:00 [facility] SARS-COV-2 COVID-19 2021-02-07 Completed Unive rsity of PFIZER VACCINE 00:00:00 [facility] SARS-COV-2 COVID-19 2021-02-07 Completed Unive rsity of PFIZER VACCINE 00:00:00 [facility] SARS-COV-2 COVID-19 2021-02-07 Completed Unive rsity of PFIZER VACCINE 00:00:00 [facility] SARS-COV-2 COVID-19 2021-02-07 Completed Unive rsity of PFIZER VACCINE 00:00:00 [facility] SARS-COV-2 COVID-19 2021-02-07 Completed Unive rsity of PFIZER VACCINE 00:00:00 [facility] SARS-COV-2 COVID-19 2021-02-07 Completed Unive rsity of PFIZER VACCINE 00:00:00 [facility] SARS-COV-2 COVID-19 2021-02-07 Completed Unive rsity of PFIZER VACCINE 00:00:00 [facility] SARS-COV-2 COVID-19 2021-02-07 Completed Unive rsity of PFIZER VACCINE 00:00:00 [facility] SARS-COV-2 COVID-19 2021-02-07 Completed Unive rsity of PFIZER VACCINE 00:00:00 [facility] SARS-COV-2 COVID-19 2021-02-07 Completed Unive rsity of PFIZER VACCINE 00:00:00 [facility] SARS-COV-2 COVID-19 2021-02-07 Completed Unive rsity of PFIZER VACCINE 00:00:00 [facility] SARS-COV-2 COVID-19 2021-02-07 Completed Unive rsity of PFIZER VACCINE 00:00:00 [facility] SARS-COV-2 COVID-19 2021-02-07 Completed Unive rsity of PFIZER VACCINE 00:00:00 [facility] SARS-COV-2 COVID-19 2021-02-07 Completed Unive rsity of PFIZER VACCINE 00:00:00 [facility] SARS-COV-2 COVID-19 2021-02-07 Completed Unive rsity of PFIZER VACCINE 00:00:00 [facility] SARS-COV-2 COVID-19 2021-02-07 Completed Unive rsity of PFIZER VACCINE 00:00:00 [facility] SARS-COV-2 COVID-19 2021-02-07 Completed Unive rsity of PFIZER VACCINE 00:00:00 [facility] SARS-COV-2 COVID-19 2021-02-07 Completed Unive rsity of PFIZER VACCINE 00:00:00 [facility] SARS-COV-2 COVID-19 2021-02-07 Completed Unive rsity of PFIZER VACCINE 00:00:00 [facility] SARS-COV-2 COVID-19 2021-02-07 Completed Unive rsity of PFIZER VACCINE 00:00:00 [facility] SARS-COV-2 COVID-19 2021-02-07 Completed Unive rsity of PFIZER VACCINE 00:00:00 [facility] SARS-COV-2 COVID-19 2021-02-07 Completed Unive rsity of PFIZER VACCINE 00:00:00 [facility] SARS-COV-2 COVID-19 2021-02-07 Completed Unive rsity of PFIZER VACCINE 00:00:00 [facility] SARS-COV-2 COVID-19 2021-02-07 Completed Unive rsity of PFIZER VACCINE 00:00:00 [facility] SARS-COV-2 COVID-19 2021-02-07 Completed Unive rsity of PFIZER VACCINE 00:00:00 [facility] SARS-COV-2 COVID-19 2021-02-07 Completed Unive rsity of PFIZER VACCINE 00:00:00 [facility] SARS-COV-2 COVID-19 2021-02-07 Completed Unive rsity of PFIZER VACCINE 00:00:00 [facility] SARS-COV-2 COVID-19 2021-02-07 Completed Unive rsity of PFIZER VACCINE 00:00:00 [facility] SARS-COV-2 COVID-19 2021-02-07 Completed Unive rsity of PFIZER VACCINE 00:00:00 [facility] SARS-COV-2 COVID-19 2021-02-07 Completed Unive rsity of PFIZER VACCINE 00:00:00 [facility] SARS-COV-2 COVID-19 2021-02-07 Completed Unive rsity of PFIZER VACCINE 00:00:00 [facility] SARS-COV-2 COVID-19 2021-02-07 Completed Unive rsity of PFIZER VACCINE 00:00:00 [facility] SARS-COV-2 COVID-19 2021-02-07 Completed Unive rsity of PFIZER VACCINE 00:00:00 [facility] SARS-COV-2 COVID-19 2021-02-07 Completed Unive rsity of PFIZER VACCINE 00:00:00 [place] [facility] SARS-COV-2 COVID-19 2021-02-07 Completed Unive rsity of PFIZER VACCINE 00:00:00 [facility] SARS-COV-2 COVID-19 2021-02-07 Completed Unive rsity of PFIZER VACCINE 00:00:00 [facility] SARS-COV-2 COVID-19 2021-02-07 Completed Unive rsity of PFIZER VACCINE 00:00:00 [facility] SARS-COV-2 COVID-19 2021-02-07 Completed Unive rsity of PFIZER VACCINE 00:00:00 [facility] SARS-COV-2 COVID-19 2021-02-07 Completed Unive rsity of PFIZER VACCINE 00:00:00 [facility] SARS-COV-2 COVID-19 2021-02-07 Completed Unive rsity of PFIZER VACCINE 00:00:00 [facility] SARS-COV-2 COVID-19 2021-01-10 Completed Unive rsity of PFIZER VACCINE 00:00:00 [facility] SARS-COV-2 COVID-19 2021-01-10 Completed Unive rsity of PFIZER VACCINE 00:00:00 [facility] SARS-COV-2 COVID-19 2021-01-10 Completed Unive rsity of PFIZER VACCINE 00:00:00 [facility] SARS-COV-2 COVID-19 2021-01-10 Completed Unive rsity of PFIZER VACCINE 00:00:00 [facility] SARS-COV-2 COVID-19 2021-01-10 Completed Unive rsity of PFIZER VACCINE 00:00:00 [facility] SARS-COV-2 COVID-19 2021-01-10 Completed Unive rsity of PFIZER VACCINE 00:00:00 [facility] SARS-COV-2 COVID-19 2021-01-10 Completed Unive rsity of PFIZER VACCINE 00:00:00 [facility] SARS-COV-2 COVID-19 2021-01-10 Completed Unive rsity of PFIZER VACCINE 00:00:00 [facility] SARS-COV-2 COVID-19 2021-01-10 Completed Unive rsity of PFIZER VACCINE 00:00:00 [facility] SARS-COV-2 COVID-19 2021-01-10 Completed Unive rsity of PFIZER VACCINE 00:00:00 [facility] SARS-COV-2 COVID-19 2021-01-10 Completed Unive rsity of PFIZER VACCINE 00:00:00 [facility] SARS-COV-2 COVID-19 2021-01-10 Completed Unive rsity of PFIZER VACCINE 00:00:00 [facility] SARS-COV-2 COVID-19 2021-01-10 Completed Unive rsity of PFIZER VACCINE 00:00:00 [facility] SARS-COV-2 COVID-19 2021-01-10 Completed Unive rsity of PFIZER VACCINE 00:00:00 [facility] SARS-COV-2 COVID-19 2021-01-10 Completed Unive rsity of PFIZER VACCINE 00:00:00 [facility] SARS-COV-2 COVID-19 2021-01-10 Completed Unive rsity of PFIZER VACCINE 00:00:00 [facility] SARS-COV-2 COVID-19 2021-01-10 Completed Unive rsity of PFIZER VACCINE 00:00:00 [facility] SARS-COV-2 COVID-19 2021-01-10 Completed Unive rsity of PFIZER VACCINE 00:00:00 [facility] SARS-COV-2 COVID-19 2021-01-10 Completed Unive rsity of PFIZER VACCINE 00:00:00 [facility] SARS-COV-2 COVID-19 2021-01-10 Completed Unive rsity of PFIZER VACCINE 00:00:00 [facility] SARS-COV-2 COVID-19 2021-01-10 Completed Unive rsity of PFIZER VACCINE 00:00:00 [facility] SARS-COV-2 COVID-19 2021-01-10 Completed Unive rsity of PFIZER VACCINE 00:00:00 [facility] SARS-COV-2 COVID-19 2021-01-10 Completed Unive rsity of PFIZER VACCINE 00:00:00 [facility] SARS-COV-2 COVID-19 2021-01-10 Completed Unive rsity of PFIZER VACCINE 00:00:00 [facility] SARS-COV-2 COVID-19 2021-01-10 Completed Unive rsity of PFIZER VACCINE 00:00:00 [facility] SARS-COV-2 COVID-19 2021-01-10 Completed Unive rsity of PFIZER VACCINE 00:00:00 [facility] SARS-COV-2 COVID-19 2021-01-10 Completed Unive rsity of PFIZER VACCINE 00:00:00 [facility] SARS-COV-2 COVID-19 2021-01-10 Completed Unive rsity of PFIZER VACCINE 00:00:00 [facility] SARS-COV-2 COVID-19 2021-01-10 Completed Unive rsity of PFIZER VACCINE 00:00:00 [facility] SARS-COV-2 COVID-19 2021-01-10 Completed Unive rsity of PFIZER VACCINE 00:00:00 [facility] SARS-COV-2 COVID-19 2021-01-10 Completed Unive rsity of PFIZER VACCINE 00:00:00 [facility] SARS-COV-2 COVID-19 2021-01-10 Completed Unive rsity of PFIZER VACCINE 00:00:00 [facility] SARS-COV-2 COVID-19 2021-01-10 Completed Unive rsity of PFIZER VACCINE 00:00:00 [facility] SARS-COV-2 COVID-19 2021-01-10 Completed Unive rsity of PFIZER VACCINE 00:00:00 [facility] SARS-COV-2 COVID-19 2021-01-10 Completed Unive rsity of PFIZER VACCINE 00:00:00 [facility] SARS-COV-2 COVID-19 2021-01-10 Completed Unive rsity of PFIZER VACCINE 00:00:00 [facility] SARS-COV-2 COVID-19 2021-01-10 Completed Unive rsity of PFIZER VACCINE 00:00:00 [facility] SARS-COV-2 COVID-19 2021-01-10 Completed Unive rsity of PFIZER VACCINE 00:00:00 [facility] SARS-COV-2 COVID-19 2021-01-10 Completed Unive rsity of PFIZER VACCINE 00:00:00 [facility] SARS-COV-2 COVID-19 2021-01-10 Completed Unive rsity of PFIZER VACCINE 00:00:00 [facility] SARS-COV-2 COVID-19 2021-01-10 Completed Unive rsity of PFIZER VACCINE 00:00:00 [facility] SARS-COV-2 COVID-19 2021-01-10 Completed Unive rsity of PFIZER VACCINE 00:00:00 [facility] SARS-COV-2 COVID-19 2021-01-10 Completed Unive rsity of PFIZER VACCINE 00:00:00 [facility] SARS-COV-2 COVID-19 2021-01-10 Completed Unive rsity of PFIZER VACCINE 00:00:00 [facility] SARS-COV-2 COVID-19 2021-01-10 Completed [facility] PFIZER VACCINE 00:00:00 [facility] SARS-COV-2 COVID-19 2021-01-10 Completed [facility] PFIZER VACCINE 00:00:00 [facility] SARS-COV-2 COVID-19 2021-01-10 Completed [facility] PFIZER VACCINE 00:00:00 [facility] SARS-COV-2 COVID-19 2021-01-10 Completed Unive rsity of PFIZER VACCINE 00:00:00 [facility] SARS-COV-2 COVID-19 2021-01-10 Completed Unive rsity of PFIZER VACCINE 00:00:00 [facility] SARS-COV-2 COVID-19 2021-01-10 Completed Unive rsity of PFIZER VACCINE 00:00:00 [facility] SARS-COV-2 COVID-19 2021-01-10 Completed Unive rsity of PFIZER VACCINE 00:00:00 [facility] SARS-COV-2 COVID-19 2021-01-10 Completed Unive rsity of PFIZER VACCINE 00:00:00 [facility] SARS-COV-2 COVID-19 2021-01-10 Completed Unive rsity of PFIZER VACCINE 00:00:00 [facility] SARS-COV-2 COVID-19 2021-01-10 Completed Unive rsity of PFIZER VACCINE 00:00:00 [facility] SARS-COV-2 COVID-19 2021-01-10 Completed Unive rsity of PFIZER VACCINE 00:00:00 [facility] SARS-COV-2 COVID-19 2021-01-10 Completed Unive rsity of PFIZER VACCINE 00:00:00 [facility] SARS-COV-2 COVID-19 2021-01-10 Completed Unive rsity of PFIZER VACCINE 00:00:00 [facility] SARS-COV-2 COVID-19 Unknown Completed Unive rsity of PFIZER VACCINE [facility] SARS-COV-2 COVID-19 Unknown Completed Unive rsity of PFIZER VACCINE [place] [facility] SARS-COV-2 COVID-19 Unknown Completed Unive rsity of PFIZER VACCINE [place] [facility] SARS-COV-2 COVID-19 Unknown Completed Unive rsity of PFIZER VACCINE [place] [facility] SARS-COV-2 COVID-19 Unknown Completed Unive rsity of PFIZER VACCINE [place] [facility] SARS-COV-2 COVID-19 Unknown Completed Unive rsity of PFIZER VACCINE [place] [facility] SARS-COV-2 COVID-19 Unknown Completed Unive rsity of PFIZER VACCINE [place] [facility] SARS-COV-2 COVID-19 Unknown Completed Unive rsity of PFIZER VACCINE [place] [facility] SARS-COV-2 COVID-19 Unknown Completed Unive rsity of PFIZER VACCINE [place] [facility] SARS-COV-2 COVID-19 Unknown Completed Unive rsity of PFIZER VACCINE [place] [facility] SARS-COV-2 COVID-19 Unknown Completed Unive rsity of PFIZER VACCINE [place] [facility] SARS-COV-2 COVID-19 Unknown Completed [facility]ive rsity of PFIZER VACCINE [place] [facility] SARS-COV-2 COVID-19 Unknown Completed Unive rsity of PFIZER VACCINE [place] [facility] SARS-COV-2 COVID-19 Unknown Completed Unive rsity of PFIZER VACCINE [place] [facility] SARS-COV-2 COVID-19 Unknown Completed Unive rsity of PFIZER VACCINE [place] [facility] SARS-COV-2 COVID-19 Unknown Completed Unive rsity of PFIZER VACCINE [place] [facility] Vital Signs Vital Name Observation Time Observation Value Comments Source Systolic blood 2023-03-16 14:53:00 155 mm[Hg] Univer sity of pressure [facility] Diastolic blood 2023-03-16 14:53:00 91 mm[Hg] Unive rsity of pressure [facility] Heart rate 2023-03-16 14:49:00 60 /min [facility] Respiratory rate 2023-03-16 14:49:00 18 /min Univ ersity of [facility] Body height 2023-03-16 14:49:00 154.9 cm [facility] [place] [facility] Body weight 2023-03-16 14:49:00 74.617 kg [facility] [place] [facility] BMI 2023-03-16 14:49:00 31.08 kg/m2 [facility] Oxygen saturation in 2023-03-16 14:49:00 92 /min University of Arterial blood by [facility] Pulse oximetry Branch Systolic blood 2020-10-11 00:00:00 106 mm[Hg] Univer sity of pressure [facility] Diastolic blood 2020-10-11 00:00:00 74 mm[Hg] Unive rsity of pressure [facility] Heart rate 2020-10-11 00:00:00 63 /min [facility] [place] [facility] Respiratory rate 2020-10-11 00:00:00 16 /min Univ [facility] [place] [facility] Oxygen saturation in 2020-10-11 00:00:00 98 /min University of Arterial blood by [facility] Pulse oximetry Branch Body temperature 2020-10-10 21:35:00 37.11 Luisa [facility] Body height 2020-10-10 21:35:00 157.5 cm [facility] [place] [facility] Body weight 2020-10-10 21:35:00 77.111 kg [facility] [place] [facility] BMI 2020-10-10 21:35:00 31.09 kg/m2 [facility] [place] [facility] Systolic blood 2020-10-11 00:00:00 106 mm[Hg] Univer sity of pressure [facility] Diastolic blood 2020-10-11 00:00:00 74 mm[Hg] Unive rsity of pressure [facility] Heart rate 2020-10-11 00:00:00 63 /min [facility] [place] [facility] Respiratory rate 2020-10-11 00:00:00 16 /min Univ [facility] Oxygen saturation in 2020-10-11 00:00:00 98 /min University of Arterial blood by [facility] shahla Pulse oximetry Branch Body temperature 2020-10-10 21:35:00 37.11 Luisa [facility] Body height 2020-10-10 21:35:00 157.5 cm [facility] [place] [facility] Body weight 2020-10-10 21:35:00 77.111 kg [facility] BMI 2020-10-10 21:35:00 31.09 kg/m2 [facility] Systolic blood 2020-05-16 06:00:00 163 mm[Hg] Univer sity of pressure [facility] Diastolic blood 2020-05-16 06:00:00 74 mm[Hg] Unive rsity of pressure [facility] Heart rate 2020-05-16 06:00:00 64 /min [facility] Respiratory rate 2020-05-16 06:00:00 20 /min Univ [facility] Oxygen saturation in 2020-05-16 06:00:00 98 /min University of Arterial blood by [facility] Pulse oximetry Branch Body temperature 2020-05-16 02:44:00 37.22 Luisa [facility] [place] [facility] [place] Body height 2020-05-16 02:44:00 152.4 cm [facility] Body weight 2020-05-16 02:44:00 77.111 kg [facility] BMI 2020-05-16 02:44:00 33.20 kg/m2 [facility] Systolic blood 2020-05-16 06:00:00 163 mm[Hg] Univer sity of pressure [facility] Diastolic blood 2020-05-16 06:00:00 74 mm[Hg] Unive rsity of pressure [facility] [place] [facility] [place] Heart rate 2020-05-16 06:00:00 64 /min [facility] Respiratory rate 2020-05-16 06:00:00 20 /min Univ [facility] Oxygen saturation in 2020-05-16 06:00:00 98 /min University of Arterial blood by [facility] Pulse oximetry Branch Body temperature 2020-05-16 02:44:00 37.22 Luisa [facility] Body height 2020-05-16 02:44:00 152.4 cm [facility] Body weight 2020-05-16 02:44:00 77.111 kg [facility] BMI 2020-05-16 02:44:00 33.20 kg/m2 [facility] Procedures Procedure Date / Time Performed Performing Clinician [facility] e SLEEP STUDY DATA 2023-05-03 05:01:00 Doctor Unassigned, No [facility] [place] REPORT Name Medical Branch OP CLINIC 2023-02-02 05:01:00 [facility], [facility]CONSULTS Name Medical Branch REFERRAL- 2022-12-22 05:01:00 Doctor Unassigned, [facility] REQUEST/RESPONSE Name Medical Branch ASSIGNMENT OF BENEFITS 2022-09-29 15:29:59 Doctor Unassigned, No [facility] Name Medical Branch REFERRAL- 2022-09-02 06:01:00 Doctor Unassigned, [facility]RESPONSE Name Medical Branch EXTERNAL PROVIDER - 2021-03-20 05:01:00 [facility] Name Medical Branch LIPASE 2020-10-10 23:18:00 [facility] HEPATIC FUNCTION PANEL 2020-10-10 23:18:00 [facility] Anabela [facility] ([id number]) Medical Branch (ALB,T.PRO,BILI T,BU/BC,ALT,AST,ALK PHOS) BASIC METABOLIC PANEL 2020-10-10 23:18:00 [facility] Anabela [facility] (NA, K, CL, CO2, Medical Branch GLUCOSE, BUN, CREATININE, CA) CBC WITH DIFF 2020-10-10 23:18:00 [facility] URINALYSIS 2020-10-10 23:04:[address] [facility] CT ABDOMEN PELVIS WO 2020-10-10 22:23:01 Anabela Hollingsworth [facility] CONTRAST Medical Branch NOTICE OF PRIVACY 2020-10-10 21:29:06 Doctor Unassigned, No [facility] PRACTICES Name Medical Branch CONSENT/REFUSAL FOR 2020-10-10 21:28:36 [facility]igned, [facility] AND Name Medical Branch TREATMENT EKG-12 LEAD 2020-05-16 05:28:45 Margaret Pemberton Doucette o [facility] Medical Branch LIPASE 2020-05-16 04:35:00 Margaret Pemberton [facility] TROPONIN I 2020-05-16 04:35:00 Margaret Pemberton [facility] COMP. METABOLIC PANEL 2020-05-16 04:35:00 Margaret Pemberton [facility] ([id number]) Medical Branch CBC WITH DIFF 2020-05-16 04:35:00 Margaret Pemberton [facility] COVID-19 (ID NOW RAPID 2020-05-16 04:35:00 Margaret Pemberton [facility] TESTING) Medical Branch XR CHEST 1 VW 2020-05-16 04:16:00 Margaret Pemberton [facility] URINALYSIS 2020-05-16 03:08:00 Shreyas Mota [facility] NOTICE OF PRIVACY 2020-05-16 02:35:16 Doctor Unassigned, No Univ [facility] PRACTICES Name Medical Branch CONSENT/REFUSAL FOR 2020-05-16 02:34:46 Doctor Unassigned, No [facility] DIAGNOSIS AND Name Medical Branch TREATMENT Encounters Start End Encounter Admission Attending Care Care Encounter Source Date/Time Date/Time Type Type Clinicians Facility Department ID 2023-02-16 Outpatient [facility] [id number] [place] 16:30:48 [id number] [facility] 2022-10-07 Outpatient [facility] [id number] [place] 08:55:29 [id number] [facility] 2022-08-31 Outpatient [facility] [id number] [place] 07:51:11 [id number] [facility] 2022-08-10 Outpatient [facility] [id number] [place] 10:50:36 [id number] [facility] 2022-04-14 Outpatient [facility] [id number] [place] 07:54:13 [facility] [id number] [facility] 2022-04-13 [facility] [id number] [place] 10:22:44 MUNACHI [id number] [facility] 2022-03-24 Outpatient [facility] [id number] [place] 15:48:13 [id number] [facility] 2022-02-24 Outpatient [facility] [id number] [place] 15:21:43 [id number] [facility] 2022-02-23 [facility] [id number] [place] 12:34:09 MUNACHI [id number] [facility] 2021-07-18 Emergency [facility] [id number] Univers 18:58:18 ity of [facility] 2021-07-17 Emergency [facility] [id number] Univers 14:37:11 ity of [facility] 2023-08-10 2023-08-10 Outpatient R ROMIE ARRIAGA [facility] [id number] Univers 11:30:00 11:30:00 ATAROMIE WARNER ity [facility] 2023-07-29 2023-07-29 Outpatient R MATI ARRIAGANYLogan [facility] [id number] Univers 20:00:00 20:00:00 ROMIE ARRIAGA itjeferson [facility] 2023-07-28 2023-07-28 Outpatient R ALLYSON PINAIG [facility] [id number] Univers 09:30:00 10:13:39 [facility]ALLYSON [facility]23-07-28 2023-07-28 Ancillary Yaneth Buckley [facility] 1.2. 840.114 [id number] Univers 09:30:00 10:13:39 Visit Kerri Pina 350.1.13.10 it[place] [id number] Id dical NAL 179 [facility] 2023-07-26 2023-07-26 Ancillary Veronica Medina [facility] 1.2.840.1 14 [id number] Univers 08:45:00 09:30:00 Visit Kerri Pina 350.1.13.10 it[place] [id number] Id dical NAL 179 [facility] 2023-07-21 2023-07-21 Ancillary Stevenson Love [facility] 1.2.840. 114 [id number] Univers 08:45:00 09:30:00 Visit Kerri Pina 350.1.13.10 [place] [id number] Id dical NAL 179 [facility] 2023-07-18 2023-07-18 Ancillary Veronica Medina [facility] 1.2.840.1 14 [id number] Univers 09:30:00 10:15:00 Visit Kerri Pina 350.1.13.10 it[place] [id number] Id dical NAL 179 [facility] 2023-07-18 2023-07-18 Outpatient R KERRI PINA [facility] [id number] Univers 09:30:00 09:30:00 KERRI PINA ity [facility] 2023-07-08 2023-07-08 Ancillary Anabela Kimbrough [facility] 1.2.840 .114 [id number] [facility] 10:15:00 11:00:00 Visit Kerri Pina 350.1.13.10 [place] [id number] Id dical NAL 179 [facility] 2023-07-06 2023-07-06 Ancillary Stevenson Love [facility] 1.2.840. 114 [id number] Univers 08:45:00 09:30:00 Visit Kerri Pina 350.1.13.10 [place] [id number] Id dical NAL 179 [facility] 2023-07-01 2023-07-01 Ancillary Ivan Lucille K [facility] 1.2.840 .114 [id number] Univers 09:00:00 09:43:38 Visit Kerri Pina 350.1.13.10 [place] [id number] Id dical NAL 179 [facility] 2023-06-28 2023-06-28 Ancillary Lucille Love [facility] 1.2.840 .114 [id number] Univers 08:45:00 09:32:45 Visit Kerri PinaTON 350.1.13.10 it[place] [id number] Id dical NAL 179 [facility] 2023-06-07 2023-06-07 Outpatient R KERRI PINA [facility] [id number] Univers 09:30:00 10:13:36 KERRI PINA [facility] 2023-06-07 2023-06-07 Ancillary Veronica Medina [facility] 1.2.840.1 14 [id number] [facility] 09:30:00 10:13:36 Visit Kerri Pina 350.1.13.10 [place] [id number] Id dical NAL 179 [facility] 2023-06-06 2023-06-[address] [facility] [id number] Kelvin 18:51:35 18:51:35 0918 [facility] [employer] 2023-05-26 2023-05-26 Ancillary Yaneth Buckley [facility] 1.2. 840.114 [id number] [facility] 09:30:00 10:14:41 Visit PinaKerri 350.1.13.10 it[place] [id number] Id dical NAL 179 [facility] 2023-05-24 2023-05-24 Ancillary Yaenth Buckley [facility] 1.2. 840.114 [id number] Univers 08:45:00 09:30:00 Visit Kerri Pina 350.1.13.10 it[place] [id number] Id dical NAL 179 [facility] 2023-05-16 2023-05-16 Outpatient R PINA [facility] [id number] Univers 09:15:00 09:59:09 KERIR itjeferson [facility] 2023-05-16 2023-05-16 Ancillary Bel Dominguez [facility] 1.2.840. 114 [id number] Univers 09:15:00 09:59:09 Visit Kerri Pina 350.1.13.10 it[place] [id number] Id dical NAL 179 [facility] 2023-05-03 2023-05-03 [place] [facility], [facility] Bed [facility] 1. 2.840.114 [id number] Univers 20:00:00 22:30:00 Visit Romie Arriaga 350.1.13. 10 it[place] of [place] [id number] [facility] [address] Branch 2023-05-03 2023-05-03 Outpatient R ROMIE ARRIAGA [facility] [id number] Univers 20:00:00 20:00:00 CORINA, MATIHIL ity [facility] 2023-05-03 2023-05-03 Orders Doctor HILDA 1.2.840.114 [id number] Univers 00:00:00 00:00:00 Only Unassigned, HILARY 350.1.13.10 ity of [facility][1] 4.2.7.2.686 Yifan [id number] [facility] [address] [place] 2023-04-11 2023-04-11 Outpatient SFA SFA [id number] Kelvin 11:21:25 11:21:25 0724 [facility] [employer] 2023-04-08 2023-04-08 Outpatient SFA SFA [id number] Kelvin 15:21:49 15:21:49 0721 [facility] [employer] 2023-03-30 2023-03-30 Outpatient SFA SFA [id number] Kelvin 15:42:45 15:42:45 0712 [facility] 2023-03-16 2023-03-16 Office Corina [facility] 1.2.907.174 [id number] Univers 10:00:00 10:30:00 Visit Romie ORR 350.1.13.10 ity of [place] 4.2.7.2.686 [facility] [id number] Id dical [facility] 085 [facility] 2023-03-16 2023-03-16 Outpatient R ROMIE ARRIAGA [facility] [id number] Univers 10:00:00 10:20:44 JOCE ARRIAGAL ity [facility] 2023-02-02 2023-02-02 Ancillary Lucille Anthony [facility] 1.2.84 0.114 [id number] Univers 09:30:00 10:09:30 Visit Kerri Pina 350.1.13.10 [place] [id number] Id dical NAL 178 [facility] 2023-02-02 2023-02-02 Orders Doctor HILDA 1.2.840.114 [id number] Univers 00:00:00 00:00:00 Only Unassigned, HILARY 350.1.13.10 ity of [facility][1] 4.2.7.2.686 Yifan as [id number] [address] 2023-02-01 2023-02-01 Ancillary Lucille Anthony [facility] 1.2.84 0.114 [id number] Univers 11:00:00 11:45:00 Visit Kerri Pina 350.1.13.10 [place] [id number] Id dical NAL [address] [place] [address] 2023-01-27 2023-01-27 [facility] [id number] Univers 09:30:00 11:30:06 KERRI steinberg [facility] 2023-01-19 2023-01-19 Ancillary Lucille Anthony [facility] 1.2.84 0.114 [id number] Univers 10:15:00 11:41:12 Visit Kerri Pina 350.1.13.10 it[place] of [place] [id number] Id dical NAL [address] [place] [address] 2023-01-17 2023-01-17 [facility] [id number] Univers 09:30:00 09:30:00 KERRI steinberg [facility] 2023-01-14 2023-01-14 [facility] [id number] Univers 13:45:00 13:45:00 KERRI steinberg [facility] 2023-01-14 2023-01-[address] [facility] [id number] Kelvin 10:40:00 10:40:00 0428 F Mio 2023-01-132023-01-13 Ancillary Lucille Anthony [place] 1.2.84 0.114 [id number] [facility] 10:15:00 11:14:45 Visit Kerri Pina 350.1.13.10 it[place] of [place] [id number] Id dical NAL [address] [facility] 2023-01-10 2023-01-10 Shekhar Raj [facility] 1.2.840.[id number] [place] [address] 00:00:00 00:00:00 Management Lucille Servin KIRBY 350.1.13.10 it[place] [id number] Id dical NAL [address] Branch [facility] 2023-01-05 2023-01-05 Ancillary Lucille Anthony [facility] 1.2.84 0.114 [id number] [facility] 08:45:00 09:34:29 Visit Kerri Pina 350.1.13.10 it[place] [id number] Id dical NAL 178 Branch [facility] 2023-01-05 2023-01-05 Outpatient R YOVANI [facility] [id number] [facility] 08:45:00 09:34:29 KERRI ity of [facility] 2022-12-30 2022-12-30 Ancillary Lucille Anthony [facility] 1.2.84 0.114 [id number] [facility] 10:15:00 11:10:52 Visit Kerri Pina 350.1.13.10 [place] [id number] Id dical NAL [address] [facility] 2022-12-28 2022-12-28 Ancillary Lucille Anthony [facility] 1.2.84 0.114 [id number] [facility] 11:00:00 11:47:44 Visit Kerri Pina 350.1.13.10 it[place] of [place] [id number] Id dical NAL 178 [address] BUILDING 2022-12-22 2022-12-[address] [facility] [id number] Kelvin 09:50:20 09:50:20 0405 F Mio 2022-12-22 2022-12-22 Orders Doctor HILDA 1.2.840.114 [id number] Univers 00:00:00 00:00:00 Only Unassigned, HILARY 350.1.13.10 ity of [facility] 4.2.7.2.686 Yifan as [id number] [address] 2022-12-16 2022-12-16 Ancillary Lucille Anthony [facility] 1.2.84 0.114 [id number] Univers 10:15:00 11:33:58 Visit Kerri Pina 350.1.13.10 it[place] [id number] Id dical NAL 178 [facility] 2022-12-13 2022-12-13 Ancillary Lucille Anthony [facility] 1.2.84 0.114 [id number] Univers 10:15:00 11:00:00 Visit Kerri Pina 350.1.13.10 it[place] of [place] [id number] Id dical NAL 178 [facility] 2022-12-09 2022-12-09 Ancillary Lucille Love [facility] 1.2.840 .114 [id number] Univers 10:15:00 11:04:07 Visit Kerri Pina 350.1.13.10 it[place] of [place] [id number] Id dical NAL 179 [facility] 2022-12-07 2022-12-07 Ancillary Lucille Love [facility] 1.2.840 .114 [id number] Univers 10:15:00 11:12:31 Visit Kerri Pina 350.1.13.10 it[place] of [place] [id number] Id dical NAL 179 [facility] 2022-11-30 2022-11-30 Ancillary Stevenson Love [facility] 1.2.840. 114 [id number] [facility] 10:15:00 11:00:00 Visit Kerri PinaTON 350.1.13.10 it[place] [id number] Id dical NAL 179 Branch BUILDING 2022-11-30 2022-11-30 Ancillary Lucille Anthony [facility] 1.2.84 0.114 [id number] Univers 09:30:00 10:21:41 Visit Kerri PinaTON 350.1.13.10 it[place] [id number] Id dical NAL 178 [facility] 2022-11-29 2022-11-29 Ancillary Stevenson Love [facility] 1.2.840. 114 [id number] [facility] 11:00:00 11:47:14 Visit Kerri PinaTON 350.1.13.10 it[place] [id number] Id dical NAL 179 [facility] 2022-11-29 2022-11-29 Ancillary Lucille Anthony [facility] 1.2.84 0.114 [id number] [facility] 10:15:00 11:11:38 Visit Kerri Pina 350.1.13.10 [place] [id number] Id dical NAL 178 [facility] 2022-11-25 2022-11-25 Ancillary Lucille Love [facility] 1.2.840 .114 [id number] [facility] 11:00:00 11:45:00 Visit Kerri PinaTON 350.1.13.10 it[place] [id number] Id dical NAL [address] [facility] 2022-11-25 2022-11-25 Ancillary Lucille Anthony [facility] 1.2.84 0.114 [id number] [facility] 10:15:00 11:02:22 Visit Kerri PinaTON 350.1.13.10 [place] [id number] Id dical NAL [address] [facility] 2022-11-22 2022-11-22 Ancillary Stevenson Love [facility] 1.2.840. 114 [id number] Univers 11:00:00 11:31:11 Visit Kerri Pina Logan [facility] 350.1.13.10 [place] [phone] Id dical NAL 179 [facility] 2022-11-22 2022-11-22 [facility] [id number] [facility] 10:15:00 10:58:25 KERRI ity [facility] 2022-11-22 2022-11-22 Ancillary Lucille Anthony [facility] 1.2.84 0.114 [id number] Formerly [facility] 10:15:00 10:58:25 Visit PinaAllyson bazanfish ORR 350.1.13.10 [place] [phone] Id dical NAL [address] [facility] 2022-11-16 2022-11-16 [facility] [id number] Univers 10:15:00 10:15:00 KERRI ity of [facility] 2022-11-11 2022-11-11 Ancillary Lucille Love [facility] 1.2.840 .114 [id number] Formerly [facility] 10:15:00 11:00:57 Visit Kerri Pina 350.1.13.10 ity of [place] [id number] Id dical NAL 179 [facility] 2022-11-11 2022-11-11 Ancillary Lucille Anthony [facility] 1.2.84 0.114 [id number] Univers 09:30:00 10:12:04 Visit Yovani Kerrifish ORR 350.1.13.10 it[place] of [place] [id number] Id dical NAL 178 [facility] 2022-11-08 2022-11-08 Ancillary Stevenson Love [facility] 1.2.840. 114 [id number] Univers 11:00:00 11:31:38 Visit Kerri Pina 350.1.13.10 it[place] [phone] Id dical NAL 179 [address] [facility] 2022-11-08 2022-11-08 Ancillary Anamika Anthonyomayra Servin [facility] 1.2.84 0.114 [id number] Univers 10:15:00 11:15:30 Visit Kerri Pina 350.1.13.10 it[place] [id number] Id dical NAL 178 [facility] 2022-11-05 2022-11-05 Ancillary Lucille Love [facility] 1.2.840 .114 [id number] Formerly [facility] 10:15:00 10:44:41 Visit Kerri Pina 350.1.13.10 it[place] [id number] Id dical NAL 179 [facility] 2022-11-03 2022-11-03 Ancillary Lucille Love [facility] 1.2.840 .114 [id number] Univers 11:00:00 11:45:00 Visit Kerri Pina 350.1.13.10 it[place] [id number] Id dical NAL 179 [facility] 2022-10-28 2022-10-28 Ancillary Lucille Love [facility] 1.2.840 .114 [id number] Univers 11:00:00 11:37:59 Visit Kerri PinaTON 350.1.13.10 it[place] [id number] Id dical NAL [address] [facility] 2022-10-28 2022-10-28 Ancillary Lucille Anthony Malathi [facility] 1.2.84 0.114 [id number] Univers 10:15:00 11:14:14 Visit Kerri Pina 350.1.13.10 it[place] of [place] [id number] Id dical NAL [address] [facility] 2022-10-26 2022-10-26 Ancillary IvanLucille Glenny [facility] 1.2.840 .114 [id number] Univers 11:00:00 11:54:58 Visit Kerri Pina 350.1.13.10 it[place] of [place] [id number] Id dical NAL 179 Branch [facility] 2022-10-26 2022-10-26 Ancillary Lucille Anthony [facility] 1.2.84 0.114 [id number] Univers 10:15:00 11:12:23 Visit Kerri Pina 350.1.13.10 it[place] of [place] [id number] Id dical NAL 178 [facility] 2022-10-21 2022-10-21 Ancillary Lucille Love Glenny [facility] 1.2.840 .114 [id number] Formerly [facility] 11:15:00 11:56:16 Visit Kerri Pina 350.1.13.10 ity of [place] [id number] Id dical NAL 179 [facility] 2022-10-21 2022-10-21 Outpatient R YOVANI [facility] [id number] Univers 09:30:00 10:08:26 KERRI ity of [facility] 2022-10-21 2022-10-21 Ancillary Lucille Anthony [facility] 1.2.84 0.114 [id number] Univers 09:30:00 10:08:26 Visit Kerri Pina 350.1.13.10 it[place] [id number] Id dical NAL 178 [facility] 2022-10-19 2022-10-19 Shekhar Anthony [facility] 1.2.840.114 [id number] Univers 00:00:00 00:00:00 Management Lucille ORR 350.1.13.10 it[place] [id number] Id dical NAL 178 [address] [facility] 2022-10-14 2022-10-14 Ancillary Lucille Anthony [facility] 1.2.84 0.114 [id number] Formerly [facility] 11:00:00 11:56:14 Visit Kerri Pina 350.1.13.10 ity of [place] [id number] Id dical NAL 178 [address] [facility] 2022-10-14 2022-10-14 Ancillary Jada Buckleyine Malathi [facility] 1.2. 840.114 [id number] Formerly [facility] 10:15:00 10:54:22 Visit Kerri Pina 350.1.13.10 it[place] [id number] Id dical NAL 179 [address] [facility] 2022-10-13 2022-10-13 Ancillary Lucille Anthony [facility] 1.2.84 0.114 [id number] Formerly [facility] 10:15:00 11:03:15 Visit Kerri Pina 350.1.13.10 it[place] of [place] [id number] Id dical NAL 178 [address] [facility] 2022-10-13 2022-10-13 Ancillary Anabela Kimbrough [facility] 1.2.840 .114 [id number] Formerly [facility] 09:30:00 10:32:21 Visit Kerri Pina 350.1.13.10 it[place] [id number] Id dical NAL [address] [facility] 2022-10-08 2022-10-08 Ancillary Luis E Anabela [facility] 1.2.840 .114 [id number] Formerly [facility] 09:30:00 11:34:22 Visit Kerri Pina 350.1.13.10 ity of [place] [id number] Id dical NAL 179 [address] [facility] 2022-10-062022-10-06 Ancillary Anabela Kimbrough [facility] 1.2.840 .114 [id number] Univers 09:30:00 10:18:45 Visit Kerri Pina 350.1.13.10 [place] [id number] Id dical [facility] 179 [facility] 2022-09-29 2022-09-29 [facility] [id number] Univers 09:30:00 11:59:30 KERRI ity [facility] 2022-09-29 2022-09-29 Ancillary Lucille Anthony [facility] 1.2.84 0.114 [id number] Univers 09:30:00 11:59:30 Visit Kerri Pina 350.1.13.10 [place] [id number] Id dical NAL 178 [facility] 2022-09-29 2022-09-29 Orders Doctor HILDA 1.2.840.114 [id number] Univers 00:00:00 00:00:00 Only Unassigned, HILARY 350.1.13.10 ity of [place] [facility] 4.2.7.2.686 Yifan as [id number] [address] 2022-09-27 2022-09-27 [facility] [id number] Univers 11:00:00 11:59:18 KERRI steinberg [facility] 2022-09-27 2022-09-27 Ancillary Chelita Che [facility] 1 .2.840.114 [id number] Univers 11:00:00 11:59:18 Visit Kerri Pina 350.1.13.10 [place] [id number] Id dical NAL 179 [facility] 2022-09-02 2022-09-02 Orders Doctor STEVENS 1.2.840.114 [id number] Univers 00:00:00 00:00:00 Only Unassigned, HILARY 350.1.13.10 ity of [place] [facility] 4.2.7.2.686 Yifan as [id number] [address] 2022-09-01 2022-09-01 Outpatient DAGO [facility] [id number] [place] 11:00:00 11:00:00 [facility] 2022-08-17 2022-08-17 Outpatient DAGO [facility] [id number] [place] 11:30:00 11:30:00 [facility] 2022-07-06 2022-07-[address] [facility] [id number] Kelivn 09:27:36 09:27:36 1018 F Mio 2022-02-28 2022-03-30 Inpatient VARACALLI, [facility] [facility] 17:05:00 15:15:00 GIULIA 2021-05-22 2021-05-22 [facility] [id number] Univers 15:40:00 15:40:00 SHREYAS reddy [facility] 2021-05-07 2021-05-07 [facility] [id number] Univers 10:00:00 10:00:00 SHREYAS reddy [facility] 2021-03-20 2021-03-20 Orders Doctor HILDA Hernandez.2.840.114 [id number] 00:00:00 00:00:00 Only Unassigned, HILARY 350.1.13.10 [place] [facility] 4.2.7.2.686 [id number] 2021-03-20 2021-03-20 Orders Doctor HILDA Hernandez.2.840.114 [id number] Univers 00:00:00 00:00:00 Only Unassigned, HILARY 350.1.13.10 ity of [place] [facility] 4.2.7.2.686 Yifan as [id number] [address] 2021-02-07 2021-02-07 Outpatient R [facility] [id number] Univers 09:15:00 09:15:00 ity [facility] 2021-01-10 2021-01-10 Outpatient R MILTON [facility] [id number] Univers 09:30:00 09:30:00 CORNELIUS ity [facility] 2020-10-10 2020-10-10 Emergency [place], [facility] 1.2.840.114 [id number] 15:39:00 18:33:00 Anabela Orr 350.1.13.10 [place] 4.2.7.2.686 [place] [id number] 084 2020-10-10 2020-10-10 Emergency [place], [facility] 1.2.840.114 [id number] Formerly [facility] 15:39:00 18:33:00 Anabela Orr 350.1.13.10 i ty of [place] 4.2.7.2.686 [facility] [id number] [address] 2020-05-15 2020-05-16 Emergency [place], [facility] 1.2.473.992 [id number] 21:47:00 01:20:00 Margaret Orr 350.1.13.10 [place] [address] [place] [address] [id number] [facility] 2020-05-15 2020-05-16 Emergency [place], [facility] 1.2.133.551 [id number] Formerly [facility] 21:47:00 01:20:00 Margaret Orr 350.1.13.10 i ty of [place] [address] [place] [id number] Results Test Description Test Time Test Comments Results Result Comments Source CULTURE, URINE 2023-01-20 SPECIMEN NUMBER: 13:02:33 [id number] CULTURE, URINE SPECIMEN NUMBER: [id number] SPECIMEN COMMENT: URINE SOURCE: URINE REPORT STATUS: FINAL ISOLATE NUMBER 1: ORGANISM: 01/16/2023 >100,000 CFU/ML GRAM NEGATIVE BACILLI IDENTIFICATION: 01/19/2023 ESCHERICHIA COLI E. COLI AMOX ICILLIN/CA SENSITIVE <=8/4AMPICILLIN SENSITIVE <=8CEFAZOLIN SENSITIVE <=2CEFTRIAXONE SENSITIVE <=1CIPROFLOXACIN SENSITIVE <=1LEVOFLOXACIN SENSITIVE <=2NITROFURANTOIN SENSITIVE <=32PIP/TAZOBAC SENSITIVE <=16TETRACYCLINE RESISTANT >8TOBRAMYCIN SENSITIVE <=4TRIMETH/SULFA SENSITIVE <=2/38 NOTE: NUMBERS DISPLAYED REPRESENT MINIMUM INHIBITORY CONCENTRATION (JEFF) WHICH IS EXPRESSED IN MCG/ML. [facility] has important pathology staff changes effective 11/17/2022. New pathology staff will provide uninterrupted, excellent patient care and clinical consultation. See URL: [email or web address]. UNLESS OTHERWISE INDICATED, ALL TESTING PERFORMED AT [facility]. [address] [place] [address] WEB SPECIALIST: JEFF ROCKWELL M.D. CLIA NUMBER [id number] [place]. [id number] CULTURE, URINE 2022-07-03 SPECIMEN NUMBER: 13:54:04 [id number] CULTURE, URINE SPECIMEN NUMBER: [id number] SPECIMEN COMMENT: URINE SOURCE: URINE REPORT STATUS: [...] MCG/ML. UNLESS OTHERWISE INDICATED, [facility]. [address] [place] [address] WEB SPECIALIST: LIZZY GREENWOOD M.D. CLIA NUMBER [id number] [place]. [id number] CULTURE, URINE 2022-05-01 SPECIMEN NUMBER: 11:37:05 [id number] CULTURE, URINE SPECIMEN NUMBER: [id number] SPECIMEN COMMENT: URINE SOURCE: URINE REPORT STATUS: FINAL ISOLATE NUMBER 1: ORGANISM: 04/30/2022 >100,000 CFU/ML GRAM NEGATIVE BACILLI IDENTIFICATION: 05/01/2022 ESCHERICHIA COLI E. COLI AMOX ICILLIN/CA INTERMED 16/8AMPICILLIN RESISTANT >16CEFAZOLIN SENSITIVE <=2CEFTRIAXONE SENSITIVE <=1CIPROFLOXACIN SENSITIVE <=1LEVOFLOXACIN SENSITIVE <=2NITROFURANTOIN SENSITIVE <=32PIP/TAZOBAC SENSITIVE <=16TETRACYCLINE RESISTANT >8TOBRAMYCIN SENSITIVE <=4TRIMETH/SULFA RESISTANT > NOTE: NUMBERS DISPLAYED REPRESENT MINIMUM INHIBITORY CONCENTRATION (JEFF) WHICH IS EXPRESSED IN MCG/ML. UNLESS OTHERWISE INDICATED, ALL TESTING PERFORMED [facility] [address] [place] [address] WEB SPECIALIST: LIZZY GREENWOOD M.D. [place] NUMBER [id number] [place]. [id number] Hepatic Function Panel (ALB, T.PRO, BILI T, BU/BC, ALT , AST, 2020-10-10 23:54:00 ALK PHOS) Test Item Value Reference Range Interpretation Comme nts TOTAL BILI (test code = 3035720466) 0.5 mg/dL 0.1-1.1 BILI UNCON (test code = 4743100640) 0.4 mg/dL 0.1-1.1 BILI CONJ (test code = 8139398775) 0.0 mg/dL 0-0.3 T PROTEIN (test code = 8049034392) 8.3 g/dL 6.3-8.2 H ALBUMIN (test code = 7785519310) 4.5 g/dL 3.5-5 ALK PHOS (test code = 8925808944) 86 U/L 34-122 ALTv (test code = 1742-6) 17 U/L 5-35 AST(SGOT) (test code = 7542040282) 31 U/L 13-40 Lab Interpretation (test code = 67917-4) [facility]normal [facility] [id number] 23:54:00 Test Item Value Reference Range Interpretation Comments LIPASE (test code = 2295196737) 60 U/L 0-220 Lab Interpretation (test code = Normal 15038-9) [facility] (NA, K, CL, CO2, GLUCOSE, BUN, CREATININE, CA)2020-10-10 23:54:00 Test Item Value Reference Range Interpretation Comments NA (test code = 140 mmol/L 135-145 2107762364) K (test code = 4.7 mmol/L 3.5-5 5567383228) CL (test code = 104 mmol/L 98-108 7727105585) CO2 TOTAL (test code = 28 mmol/L 23-31 2522951185) AGAP (test code = 2-16 8960377844) BUN (test code = 17 mg/dL 7-23 7641690463) GLUCOSE (test code = 92 mg/dL 70-110 0193451436) CREATININE (test code 0.81 mg/dL 0.5-1.04 = 5775197273) CALCIUM (test code = 9.3 mg/dL 8.6-10.6 5254118317) eGFR Calculation mL/min/1.73m2 (Non-) (test code = 1758397797) eGFR Calculation mL/min/1.73m2 () (test code = 1035800152) JOHN (test code = JOHN) Association of [...] or urine or abnormalities in imaging tests). [facility] AtjrnbXpflskxbdj8187-54-36 23:41:00 Test Item Value Reference Range Interpretation Comments APPEARANCE (test code = Hazy Clear A 1802418267) COLOR (test code = Yellow Yellow 1524195613) PH (test code = 4.8-8.0 4327105917) SP GRAVITY (test code = 1.003-1.030 8162579561) GLU U QUAL (test code = Normal Normal 3144913286) BLOOD (test code = Negative Negative INTERFERE NCE FROM 9015332048) ASCORBIC ACID M AY CAUSE FALSE NEG ATIVE RESULT KETONES (test code = Negative Negative 1265135809) PROTEIN (test code = Negative Negative 2887-8) UROBILIN (test code = Normal Normal 8327112052) BILIRUBIN (test code = Negative Negative 6220972165) NITRITE (test code = Negative Negative 8858595744) LEUK NESS (test code = 250/uL Negative A 1856164714) RBC/HPF (test code = See_Comment [Autom ated message] 3213246577) The system Predikt generated this result transmitted ref erence range: 0 - 3 HP F. The reference range was not used to int erpret this result as normal/abnormal . WBC/HPF (test code = See_Comment [Autom ated message] 6022154158) The system Predikt generated this result transmitted ref erence range: 0 - 5 HP F. The reference range was not used to int erpret this result as normal/abnormal . BACTERIA (test code = Negative Negative 1506182546) MUCOUS (test code = Slight Negative LPF A 0215260540) SQ EPITH (test code = HPF 6384974741) Lab Interpretation (test Abnormal code = 30937-7) [facility] with Zttvmwkmwywg2569-53-83 23:36:00 Test Item Value Reference Range Interpretation Comments WBC (test code = See_Comment [Automated 3690-2) message] The sy stem which generated this result transmitted reference range : 4.30 - 11.10 10*3/?L. The reference range was not used to interpret this result as normal/abnormal . RBC (test code = See_Comment [Automated 999-8) message] The sy stem which generated this [...] RDW-SD (test code = 46.5 fL 39-49.9 18708-0) RDW-CV (test code = 14.4 % 12-15.5 788-0) PLT (test code = See_Comment [Automated 777-3) message] The sy stem which generated this result transmitted reference range : 166 - 358 10*3/ ?L. The reference r susan was not used to interpret this result as normal/abnormal . MPV (test code = 9.5 fL 9.5-12.9 18707-2) NRBC/100 WBC (test See_Comment [Automat ed code = 3177024019) message] The system which generated this result transmitted reference range : 0.0 - 10.0 /100 WBCs. The refer ence range was not u sed to interpret th is result as normal/abnormal . NRBC x10^3 (test code <0.01 See_Comment [Auto mated = 3145313816) message] The s ystem which generated this result transmitted reference range : 10*3/?L. The reference range was not used to interpret this result as normal/abnormal . GRAN MAT (NEUT) % 53.6 % (test code = 770-8) IMM GRAN % (test code 0.20 % = 9586619266) LYMPH % (test code = 36.6 % 736-9) MONO % (test code = 8.6 % 5905-5) EOS % (test code = 0.7 % 713-8) BASO % (test code = 0.3 % 706-2) GRAN MAT x10^3(ANC) 3.16 10*3/uL 1.88-7.09 (test code = 3806585753) IMM GRAN x10^3 (test <0.03 0-0.06 code = 8584661570) LYMPH x10^3 (test code 2.16 10*3/uL 1.32-3.29 = 731-0) MONO x10^3 (test code 0.51 10*3/uL 0.33-0.92 = 742-7) EOS x10^3 (test code = 0.04 10*3/uL 0.03-0.39 711-2) BASO x10^3 (test code <0.03 0.01-0.07 = 704-7) Lab Interpretation Abnormal (test code = 59357-7) [facility]/O Hmjhwaun5252-12-16 23:05:431. ?Interval enlargement of cystic lesion within the medial segment 7 nrozp2089. Central fluid attenuation suggests a simple cyst. [...] cystic lesion within the medial segment 7 bcgcp8890. Central fluid attenuation suggests a simple cyst. Considerconfirmation with multiphasic CT or MRI given interval growth. 2. Status post cholecystectomy.3. Punctate bilateral nonobstructive nephrolithiasis.4. Left adrenal benign adenoma.5. Left ovarian 1.7 cm cyst. Attention on follow-up in 6 weeks.6. Scarring in the ventral abdominal wall and small fat- containingumbilical hernia.[facility] 2020-05-16 05:48:00 Test Item Value Reference Range Interpretation Comments TROPONIN I (test 0.029 ng/mL See_Comment [Automated code = 1491867727) message] The system which generated this result [...] ? Lab Interpretation Normal (test code = 79762-1) [facility] CHEST 1 [id number] 05:11:31 No acute cardiopulmonary abnormality. Preliminary Report [...] [facility], Radiant Results Inft User - 05/16/2020 12:12 AM CDTEXAM: XR CHEST 1 VWCLINICAL INDICATION: cough, wheezing COMPARISON: NoneFINDINGS:Left chest wall cardiac pacer tips terminate in the right ventricle andright atrium.The lungs are well-expanded and clear without focal consolidation, pleuraleffusion, or pneumothorax.The cardiac silhouette is normal in size. The aortic knob is calcified.No acute osseous abnormality. IMPRESSIONNo acute cardiopulmonary abnormality.Preliminary Report Dictated by Resident: Shane Llanes, Prudencio Silverio MD., have reviewed this study and agree withthe above report. [facility]. METABOLIC PANEL (59561)2020-05-16 05:05:00 Test Item Value Reference Range Interpretation Comments NA (test code = 140 mmol/L 135-145 9627430911) K (test code = 4.6 mmol/L 3.5-5 2934182265) CL (test code = 108 mmol/L 98-108 3124149162) CO2 TOTAL (test code = 29 mmol/L 23-31 1513741788) AGAP (test code = 2-16 9794379326) BUN (test code = 18 mg/dL 7-23 2533484801) GLUCOSE (test code = 108 mg/dL 70-110 0468251660) CREATININE (test code = 0.92 mg/dL 0.5-1.04 5645832792) TOTAL BILI (test code = 0.4 mg/dL 0.1-1.4 4227502517) CALCIUM (test code = 9.3 mg/dL 8.6-10.6 9128747313) T PROTEIN (test code = 8.1 g/dL 6.3-8.2 3499705064) ALBUMIN (test code = 4.2 g/dL 3.5-5 5248321600) ALK PHOS (test code = 71 U/L 34-122 8330960896) ALTv (test code = 20 U/L 5-35 1742-6) AST(SGOT) (test code = 50 U/L 13-40 H 5878799407) eGFR Calculation mL/min/1.73m2 (Non-) (test code = 4661973762) eGFR Calculation mL/min/1.73m2 () (test code = 8707906663) JOHN (test code = JOHN) Association of [...] tests). Lab Interpretation Abnormal (test code = 28514-4) [facility]2020-[facility] 05:04:00 Test Item Value Reference Range Interpretation Comments LIPASE (test code = 4346906739) 48 U/L 0-220 Lab Interpretation (test code = Normal 26164-1) [facility] CenterCOVID[facility] (ID NOW RAPID TESTING)2020-05-16 05:01:00 Test Item Value Reference Range Interpretation Comments SARS-CoV-2 Rapid ID NOW Not Detected Not Detected (test code = 70682-2) JOHN (test code = JOHN) ID NOW COVID-19 Assay is an isothermal nucleic acid amplification test intended for the qualitative detection of nucleic acid from SARS-CoV-2 viral RNA in nasopharyngeal (GLOB[employer] SALES MANAGER) specimens. It is used under Emergency [...] indicated. Lab Interpretation Normal (test code = 74776-5) [facility] WITH [id number] 04:46:00 Test Item Value Reference Range Interpretation Comments WBC (test code = See_Comment [Automated 2290-2) message] The sy stem which generated this [...] RDW-SD (test code = 49.1 fL 39-49.9 22110-0) RDW-CV (test code = 15.1 % 12-15.5 788-0) PLT (test code = See_Comment [Automated 777-3) message] The sy stem which generated this result transmitted reference range : 166 - 358 10*3/ ?L. The reference r susan was not used to interpret this result as normal/abnormal . MPV (test code = 9.8 fL 9.5-12.9 93060-9) NRBC/100 WBC (test See_Comment [Automat ed code = 0120648151) message] The system which generated this result transmitted reference range : 0.0 - 10.0 /100 WBCs. The refer ence range was not u sed to interpret th is result as normal/abnormal . NRBC x10^3 (test code <0.01 See_Comment [Auto mated = 5834527306) message] The s ystem which generated this result transmitted reference range : 10*3/?L. The reference range was not used to interpret this result as normal/abnormal . GRAN MAT (NEUT) % 50.8 % (test code = 770-8) IMM GRAN % (test code 0.40 % = 2247052124) LYMPH % (test code = 39.1 % 736-9) MONO % (test code = 7.7 % 5905-5) EOS % (test code = 1.6 % 713-8) BASO % (test code = 0.4 % 706-2) GRAN MAT x10^3(ANC) 2.90 10*3/uL 1.88-7.09 (test code = 3428723502) IMM GRAN x10^3 (test <0.03 0-0.06 code = 2621017327) LYMPH x10^3 (test code 2.23 10*3/uL 1.32-3.29 = 731-0) MONO x10^3 (test code 0.44 10*3/uL 0.33-0.92 = 742-7) EOS x10^3 (test code = 0.09 10*3/uL 0.03-0.39 711-2) BASO x10^3 (test code <0.03 0.01-0.07 = 704-7) Lab Interpretation Abnormal (test code = 35896-6) [facility]2020-[facility]-28 03:37:00 Test Item Value Reference Range Interpretation Comments APPEARANCE (test code = Clear Clear 5589126954) COLOR (test code = Yellow Yellow 5763161933) PH (test code = 4.8-8.0 5270202336) SP GRAVITY (test code = 1.003-1.030 7646542900) GLU U QUAL (test code = Normal Normal 2244405710) BLOOD (test code = Negative Negative INTERFERE NCE FROM 0477930020) ASCORBIC ACID M AY CAUSE FALSE NEG ATIVE RESULT KETONES (test code = Negative Negative 0130242436) PROTEIN (test code = Negative Negative 2887-8) UROBILIN (test code = Normal Normal 7658079397) BILIRUBIN (test code = Negative Negative 9207130966) NITRITE (test code = Negative Negative 2863326677) LEUK NESS (test code = Negative Negative 7495332477) RBC/HPF (test code = See_Comment [Autom ated message] [id number]) The system [employer]ikt generated this result transmitted ref erence range: 0 - 3 HP F. The reference range was not used to int erpret this result as normal/abnormal . WBC/HPF (test code = See_Comment [Autom ated message] [id number]) The system [employer] generated this result transmitted ref erence range: 0 - 5 HP F. The reference range was not used to int erpret this result as normal/abnormal . BACTERIA (test code = Few Negative A 6298497910) MUCOUS (test code = Slight Negative LPF A 7152772855) SQ EPITH (test code = HPF 7160283973) Lab Interpretation (test Abnormal code = 97739-0) [facility]"
[2023-07-31 04:37] LABS: Absolute Lymphocytes (CBC) 1.5 K/uL (0.7-4.9); Hematocrit 40.8 % (36.0-45.0); Lymphocytes % 17.4 % (15.3-44.8); MCV 83.2 fL (80-100); MPV 7.9 fL (7.6-11.3); Platelets 199 thou/uL (152-406)
[2023-07-31 04:56] LABS: Magnesium 2.4 mg/dL (1.6-2.4); Potassium 3.7 mEq/L (3.5-5.1)
[2023-07-31] MEDS ORDERED: ONDANSETRON 4 MG (ODT) TAB ONE (05:43)
[2023-07-31] MEDS ORDERED: ENALAPRILAT 1.25 MG/ML VIAL IV ONE (05:43)
--- NOTE | 2023-07-31 07:30 | ER ---
Nurse's Notes [facility] Name: Shelia Valentine Age: 72 yrs Sex: Female : 1950 Arrival Date: 07/31/2023 Time: 04:01 Bed 15 Private MD: Diagnosis: Pain in left shoulder Presentation: 07/31 04:06 Chief complaint: EMS states: Pt called EMS for left arm pain that started last night. jb4 Upon arrival pt BGL was 42, 15g of oral glucose was given. BGL estevan to 134. Pt has a 22g IV to the RAC. Coronavirus screen: At this time, the client does not indicate any symptoms associated with coronavirus-19. Ebola Screen: No symptoms or risks identified at this time. Initial Sepsis Screen: Does the patient meet any 2 criteria? No. Patient's initial sepsis screen is negative. Does the patient have a suspected source of infection? No. Patient's initial sepsis screen is negative. Risk Assessment: Do you want to hurt yourself or someone else? Patient reports no desire to harm self or others. Onset of symptoms was July 30, 2023. Transition of care: patient was not received from another setting of care. 04:06 Method Of Arrival: EMS: [facility] jb4 04:06 Acuity: ADDI 3 jb4 Historical: - Allergies: 04:09 Cipro; jb4 04:09 Codeine; jb4 04:09 Demerol; jb4 04:09 HYDROCODONE; jb4 04:09 Morphine; jb4 04:09 PENICILLINS; jb4 04:09 Sulfa (Sulfonamide Antibiotics); jb4 - Home Meds: 04:09 lisinopril 10 mg Oral tablet [Active]; aspirin 81 mg Oral tablet daily [Active]; jb4 - PMHx: 04:09 CAD; CAD; chest pain; CVA; GERD; High Cholesterol; Hypertension; Kidney stones; jb4 Osteoporosis; Pancreatitis; Sleep Apnea; Arthritis; - PSHx: 04:09 section; jb4 Screenin:30 [facility] ED Fall Risk Assessment (Adult) History of falling in the last 3 months, aa5 including since admission Yes- fall prone (multiple falls) (3 pts) Impaired Gait Yes (1 pt) Mobility Assist Device Used Yes (1 pt) Score/Fall Risk Level 3 or more points = High Risk Oriented to surroundings, Maintained a safe environment, Educated pt \T\ family on fall prevention, incl call for assistance when getting out of bed, Assessed \T\ reinforced patient's understanding of fall precautions. Abuse screen: Denies threats or abuse. Nutritional screening: No deficits noted. Tuberculosis screening: No symptoms or risk factors identified. Assessment: 04:15 General: Appears in no apparent distress. comfortable, Behavior is calm, cooperative, jb4 appropriate for age. Pain: Complains of pain in left arm Pain does not radiate. Pain currently is 8 out of 10 on a pain scale. Neuro: Level of Consciousness is awake, alert, obeys commands, Oriented to person, place, time, situation, Reports weakness in Left extremities since prior stroke. Cardiovascular: Patient's skin is warm and dry. Respiratory: Airway is patent Respiratory effort is even, unlabored, Respiratory pattern is regular, symmetrical. GI: No signs and/or symptoms were reported involving the gastrointestinal system. : No signs and/or symptoms were reported regarding the genitourinary system. EENT: No signs and/or symptoms were reported regarding the EENT system. Derm: Skin is intact, Skin is pink, warm \T\ dry. Musculoskeletal: Circulation, motion, and sensation intact. 05:44 Reassessment: Patient appears in no apparent distress at this time. Patient and/or jb4 family updated on plan of care and expected duration. Pain level reassessed. Patient is alert, oriented x 3, equal unlabored respirations, skin warm/dry/pink. 06:23 Reassessment: Patient appears in no apparent distress at this time. Patient and/or jb4 family updated on plan of care and expected duration. Pain level reassessed. Patient is alert, oriented x 3, equal unlabored respirations, skin warm/dry/pink. 07:30 Reassessment: Patient is alert, oriented x 3, equal unlabored respirations, skin aa5 warm/dry/pink. PT C/O LEFT HAND CRAMPING, DR. GASTON NOTIFIED.. 07:50 Reassessment: PT ASSISTED TO RESTROOM VIA WHEELCHAIR, PT VOIDED WITHOUT DIFFICULTY. . aa5 Vital Signs: 04:06 BP 213 / 97; Pulse 68; Resp 16; Temp 98.1(O); Pulse Ox 100% on R/A; Weight 52.5 kg (M); jb4 05:44 BP 193 / 94; Pulse 67; Resp 16; Pulse Ox 97% on R/A; jb4 06:23 BP 166 / 79; Pulse 68; Resp 16; Pulse Ox 97% ; jb4 07:30 BP 186 / 81; Pulse 72; Resp 16 S; Temp 97.6(TE); Pulse Ox 99% on R/A; aa5 ED Course: 04:06 Patient arrived in ED. ms3 04:06 Braxton Gaston DO is Attending Physician. ms3 04:09 Triage completed. jb4 04:09 Arm band placed on right wrist. jb4 04:32 Troponin HS Sent. jb4 04:32 Magnesium Sent. jb4 04:32 CBC with Diff Sent. jb4 04:32 Basic Metabolic Panel Sent. jb4 04:45 XRAY Chest (1 view) In Process Unspecified. EDMS 07:29 Reed Potter DO is Referral Physician. ms3 07:30 Patient has correct armband on for positive identification. Placed in gown. Bed in low aa5 position. Call light in reach. Side rails up X2. 07:50 No provider procedures requiring assistance completed. IV discontinued, intact, aa5 bleeding controlled, No redness/swelling at site. Pressure dressing applied. Administered Medications: 05:37 Drug: Ondansetron PO 4 mg PO once Route: PO; jb4 07:50 Follow up: Response: No adverse reaction aa5 05:37 Drug: Enalaprilat IV 0.625 mg IV at calculated rate once Route: IV; Rate: calculated jb4 rate; Site: right wrist; 07:50 Follow up: Response: No adverse reaction aa5 07:35 Drug: Lisinopril PO 10 mg PO once Route: PO; aa5 07:50 Follow up: Response: No adverse reaction aa5 Medication: 07:50 VIS not applicable for this client. aa5 Outcome: 07:29 Discharge ordered by . ms3 07:53 Discharged to home via wheelchair, with family, aa5 07:53 Condition: stable 07:53 Discharge instructions given to patient, Instructed on discharge instructions, follow up and referral plans. medication usage, Demonstrated understanding of instructions, follow-up care, medications, Prescriptions given X 1, 07:56 Patient left the ED. aa5 Signatures: Dispatcher [facility] Charlette Uribe, RN RN aa5 Herberth Figueroa RN RN jb4 Braxton Gaston DO DO ms3
--- NOTE | 2023-07-31 07:30 | EDPHYS ---
Physician Documentation [facility] Name: Shelia Valentine Age: 72 yrs Sex: Female : 1950 Arrival Date: 07/31/2023 Time: 04:01 Bed 15 Private MD: ED Physician Braxton Morales HPI: 07/31 04:50 This 72 yrs old Female presents to ER via EMS with complaints of Left shoulder ms3 pain. 04:50 70-year-old female with past medical history of coronary artery disease, CVA, GERD, ms3 hyperlipidemia, hypertension, kidney stones, osteoporosis presents to the emergency department for left arm pain that is worse with movement. Patient states pain began tonight. EMS notes patient did take pain medications tonight. On EMS arrival patient's blood glucose level was 42. 15 g oral glucose was given.. Historical: - Allergies: 04:09 Cipro; jb4 04:09 Codeine; jb4 04:09 Demerol; jb4 04:09 HYDROCODONE; jb4 04:09 Morphine; jb4 04:09 PENICILLINS; jb4 04:09 Sulfa (Sulfonamide Antibiotics); jb4 - Home Meds: 04:09 lisinopril 10 mg Oral tablet [Active]; aspirin 81 mg Oral tablet daily [Active]; jb4 - PMHx: 04:09 CAD; CAD; chest pain; CVA; GERD; High Cholesterol; Hypertension; Kidney stones; jb4 Osteoporosis; Pancreatitis; Sleep Apnea; Arthritis; - PSHx: 04:09 section; jb4 ROS: 04:50 Constitutional: Negative for fever, and chills. Neck: Negative for injury, pain, and ms3 swelling, Cardiovascular: Negative for chest pain, and palpitations. Respiratory: Negative for shortness of breath, cough, wheezing, and pleuritic chest pain, Abdomen/GI: Negative for abdominal pain, nausea, vomiting, diarrhea, and constipation, 04:50 MS/extremity: Positive for Left shoulder pain, 04:50 All other systems are negative, Exam: 04:50 Constitutional: This is a well developed, well nourished patient who is awake, alert, ms3 and in no acute distress. Head/Face: Normocephalic, atraumatic. Neck: Trachea midline, no cervical lymphadenopathy. Supple, full range of motion without nuchal rigidity, or vertebral point tenderness. No Meningismus. Chest/axilla: Normal chest wall appearance and motion. Nontender with no deformity. Cardiovascular: Regular rate and rhythm with a normal S1 and S2. No gallops, murmurs, or rubs. Normal PMI, no JVD. No pulse deficits. Respiratory: Lungs have equal breath sounds bilaterally, clear to auscultation and percussion. No rales, rhonchi or wheezes noted. No increased work of breathing, no retractions or nasal flaring. Abdomen/GI: Soft, non-tender, with normal bowel sounds. No distension or tympany. No guarding or rebound. No evidence of tenderness throughout. Skin: Warm, dry with normal turgor. Normal color with no rashes, no lesions, and no evidence of cellulitis. 04:50 Musculoskeletal/extremity: Extremities: noted in the Left shoulder: pain, ROM: no acute changes, 05:00 ECG was reviewed by the Attending Physician. ms3 Vital Signs: 04:06 BP 213 / 97; Pulse 68; Resp 16; Temp 98.1(O); Pulse Ox 100% on R/A; Weight 52.5 kg (M); jb4 05:44 BP 193 / 94; Pulse 67; Resp 16; Pulse Ox 97% on R/A; jb4 06:23 BP 166 / 79; Pulse 68; Resp 16; Pulse Ox 97% ; jb4 07:30 BP 186 / 81; Pulse 72; Resp 16 S; Temp 97.6(TE); Pulse Ox 99% on R/A; aa5 MDM: 04:06 Patient medically screened. ms3 07:56 Differential diagnosis: DJD, tendonitis. Data reviewed: vital signs, nurses notes, and ms3 as a result, I will discharge patient. I considered the following discharge prescriptions or medication management in the emergency department Medications were administered in the Emergency Department. See NOV. 07/31 04:07 Order name: Basic Metabolic Panel; Complete Time: 04:59 ms3 07/31 04:07 Order name: CBC with Diff; Complete Time: 04:59 ms3 07/31 04:07 Order name: Magnesium; Complete Time: 04:59 ms3 07/31 04:07 Order name: Troponin HS; Complete Time: 04:59 ms3 07/31 04:27 Order name: Glucose, Ancillary Testing; Complete Time: 04:59 EDMS 07/31 04:07 Order name: XRAY Chest (1 view) ms3 07/31 04:07 Order name: EKG; Complete Time: 04:07 ms3 07/31 04:07 Order name: Cardiac monitoring; Complete Time: 04:32 ms3 07/31 04:07 Order name: EKG - Nurse/Tech; Complete Time: 04:32 ms3 07/31 04:07 Order name: IV Saline Lock; Complete Time: 04:32 ms3 07/31 04:07 Order name: Labs collected and sent; Complete Time: 04:32 ms3 07/31 04:07 Order name: O2 Per Protocol; Complete Time: 04:32 ms3 07/31 04:07 Order name: O2 Sat Monitoring; Complete Time: 04:32 ms3 EC:00 Rate is 60 beats/min. Rhythm is regular. QRS interval is normal. Clinical impression: ms3 Atrial paced. Interpreted by me. Reviewed by me. Administered Medications: 05:37 Drug: Ondansetron PO 4 mg PO once Route: PO; jb4 07:50 Follow up: Response: No adverse reaction aa5 05:37 Drug: Enalaprilat IV 0.625 mg IV at calculated rate once Route: IV; Rate: calculated jb4 rate; Site: right wrist; 07:50 Follow up: Response: No adverse reaction aa5 07:35 Drug: Lisinopril PO 10 mg PO once Route: PO; aa5 07:50 Follow up: Response: No adverse reaction aa5 Disposition Summary: 07/31/23 07:29 Discharge Ordered Notes: Location: Home ms3 Condition: Stable ms3 Diagnosis - Pain in left shoulder ms3 Followup: ms3 - With: Reed Potter DO - When: 2 - 3 days - Reason: Recheck today's complaints Discharge Instructions: - Discharge Summary Sheet ms3 - Hypertension, Adult ms3 - Musculoskeletal Pain ms3 - Shoulder Pain, [id number] ms3 Forms: - Medication Reconciliation Form ms3 - Thank You Letter ms3 - Antibiotic Education ms3 - Prescription Opioid Use ms3 - Patient Portal Instructions ms3 - Leadership Thank You Letter ms3 Prescriptions: - Tylenol 325 mg Oral tablet - take 2 tablets ORAL route every 6 hours as needed; 20 tablet; Refills: 0, ms3 Product Selection Permitted Signatures: Dispatcher [employer] EDMS Mohr, Charlette, RN RN aa5 Herberth Figueroa RN RN jb4 Braxton Morales, DO ms3
[2023-07-31] MEDS ORDERED: lisinopriL 10 MG TAB ONE (07:50)
[2023-07-31 08:09] VITALS: TEMP 98.1
[2023-07-31 08:10] VITALS: O2SAT 97
[2023-07-31 08:11] VITALS: BP 166/79
--- NOTE | 2023-08-02 12:10 | RAD REPORT ---
EXAM DESCRIPTION: RAD - Chest Single View - 07/31/2023 4:43 am CLINICAL HISTORY: Left shoulder pain;Chest pain COMPARISON: None. TECHNIQUE: XR CHEST 1 VIEW 07/31/2023 4:07 AM DIRECTOR OF STATE FINDINGS: The heart is normal in size. Left dual-chamber pacemaker is present. Lungs are clear witho ut consolidation, atelectasis, mass or edema. There is no pleural effusion. There is no pneumothorax. There are no acute osseous findings. IMPRESSION: Clear lungs. Electronically signed by: Rigoberto Hassan MD 07/31/2023 06:53 AM DIRECTOR OF STATE Due to temporary technical issues with the PACS/Fluency reporting system, reports are being signed by the in house radiologist without review as a courtesy to ensure prompt reporting. The interpreting r adiologist is fully responsible for the content of the report.
--- NOTE | 2023-08-03 17:34 | EKG ---
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
== END 2023-07-31 07:56 | disposition home or self-care (01) ==
LOC: ER 04:01
DX: M25.512 Pain in left shoulder (principal); I10 Essential (primary) hypertension; Z79.82 Long term (current) use of aspirin; Z88.0 Allergy status to penicillin; Z88.1 Allergy status to other antibiotic agents; Z88.2 Allergy status to sulfonamides; Z88.5 Allergy status to narcotic agent
CPT/HCPCS: 93005; 85025; 80048; 36415; 83735; 82947; 84484; 71045; 96374; 99284; Q0162

== ENCOUNTER 2024-08-27 00:53 | Emergency (ER) | payer MEDICARE, OTHER ==
--- OUTSIDE RECORDS SUMMARY | 2024-08-27 00:58 | XMS REPORT | Continuity of Care Document ---
Author Name Unknown Address [address] [facility] [address] [place] [address] [facility] Address [address] [facility] 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 Role Phone GABRIEL DORMAN Primary Care Physician UnavailJOSE ANGEL Giron Attending Clinician Unavailable Stevenson Love PTA Attending Clinician Kerri Hernandez MD Attending Clinician [phone] Doctor Unassigned, Alburtis Attending Clinician Ki Choudhury Attending Clinician [phone] KERRI PINA Attending Clinician UnavailKERRI Jose Attending Clinician UnavailAnabela Parker PTA Attending Clinician Unavail Yaneth Purcell PTA Attending Clinician Lucille Malik PTA Attending Clinician Unavail Romie Michaud MD Attending Clinician ATANASOV, STRAHIL T Attending Clinician Unavaila ROMIE Coreas Attending Clinician Unavaila shae Medina PT, Veronica Attending Clinician Unavailosmar Dominguez PT, Bel Ballard Attending Clinician Unavailab le 1, [facility] Attending Clinician Unavail able Raj OT, Lucille Servin Attending Clinician Unavail able Anthony Bartlett PT, Chelita Attending Clinician Un available GIULIA GROSS Attending Clinician Unavailab SHREYAS Cameron Attending Clinician Unavailable CORNELIUS ROSE Attending Clinician Unavailable Darrick MCMULLENP, Anabela Attending Clinician [phone] Niecy PAC, Margaret Shoemaker Attending Clinician [phone] GIULIA GROSS Admitting Clinician Unavailab shanelle Payers Payer Name Policy Type Policy Number Effective Date Expirati on Date Source [facility] WELLMED [id number] 2021 00:00:00 MED[place]ID [place] [id number] 2018 00:00:00 WELLMED/[employer]ARP MEDICARE ADVANTAGE [id number] 2019 00:00:00 MEDICARE PART A \\T\\ B [id number] 2015 00:00:00 Problems Condition Name Condition Details Condition Category Status Onset Date Resolution Date Last Treatment Date Treating Clinician Comments Source At risk for falls At risk for falls Disease Active 2022-09 00:00: 00 [facility] Unspecifie d abnormalit ies of gait and mobility Unspecifie d abnormalit ies of gait and mobility Disease Active 2022-09 00:00: 00 [facility] No known active problems No known active problems Disease [facility] Allergies, Adverse Reactions, Alerts Allergy Name Allergy Type Status Severity Reaction(s) Onset Date Inactive Date Treating Clinician Comments Source ONDANSET TEDDY HCL (PF) DRUG Active ITCHING 2017-09 00:00: 00 [facility] Ondanset teddy Hcl (Pf) Propensi ty to adverse reaction s Active Itching 2017-09 00:00: 00 Reaction occurred in the ER. [facility] CEPHALEX IN DRUG INGREDI Active NAUSEA ONLY 2006-09 00:00: 00 [facility] DOXYCYCL INE DRUG INGREDI Active NAUSEA ONLY 2006-09 00:00: [facility]ED[facility] Active NAUSEA ONLY 2006-09 00:00: 00 [facility] HYDROXYZ INE DRUG INGREDI Active NAUSEA ONLY 2006-09 00:00: 00 [facility] IBUPROFE N [facility] INGRED[facility] Active NAUSEA ONLY 2006-09 00:00: 00 [facility] SULFA (SULFONA MIDE ANTIBIOT ICS) Drug Class Active NAUSEA ONLY 2006-09 00:00: [facility] Sulfa (Sulfona mide Antibiot ics) Propensi ty to adverse reaction s Active Nausea Only 2006-09 00:00: 00 [facility] Cephalex in Propensi ty to adverse reaction s Active Nausea Only 2006-09 00:00: 00 [facility] Doxycycl ine Propensi ty to adverse reaction s Active Nausea Only 2006-09 00:00: 00 [facility] Famotidi ne Propensi ty to adverse reaction s Active Nausea Only 2006-09 00:00: 00 [facility] Hydroxyz ine Propensi ty to adverse reaction s Active Nausea Only 2006-09 00:00: 00 [facility] Ibuprofe n Propensi ty to adverse reaction s Active Nausea Only 2006-09 00:00: 00 [facility] Sulfa (Sulfona mide Antibiot ics) Propensi ty to adverse reaction s Active Nausea Only 2006-09 00:00: 00 [facility] Social History Social Habit Start Date Stop Date Quantity Comments Source Gender identity General acute hospital Sexual orientation [facility] History of tobacco use Current smoker [facility] History of Social function 2023-08-10 00:00:00 2023-08-10 00:00:00 [facility] Alcohol intake 2023-08-10 00:00:00 2023-08-10 00:00:00 0 /d [facility] Exposure to SARS-CoV-2 (event) 2023-01-23 00:00:00 2023-02-02 09:11:00 Not sure [facility] Tobacco use and exposure 2020-10-10 00:00:00 2020-10-10 00:00:00 Never used [facility] Sex Assigned At 1950 00:00:00 1950 00:00:00 [facility] Smoking Status Start Date Stop Date Source Ex-smoker 2020-10-10 00:00:00 [facility] Ordered Medication Name Filled Medication Name Start Date Stop Date Current Medication? Ordering Clinician Indication Dosage Frequency Signature (SIG) Comments Components Source ketorolac (TORADOL) injection 15 mg 10-10 23:00: 00 10-10 23:19 :00 No 15mg 15 mg, Slow IV Push, ONCE, 1 dose, 10/10/20 at 1700, PAUL
Fa culty member approving Restricted medication : EMERGENCY ROOM, [facility] methocarbam oL (ROBAXIN) tablet 500 mg 10-10 23:00: 00 10-10 23:03 :00 No 500mg 500 mg, Oral, ONCE NOW, 1 dose, 10/10/20 at 1700, PAUL [facility] methocarbam oL 750 mg tablet 10-10 00:00: 00 Yes [id number] 750mg Take 1 tablet by mouth 3 (three) times daily as needed (muscle pain). [facility] albuterol (VENTOLIN) inhaler 2 Puff 05-16 07:15: 00 05-16 06:12 :00 No 2{puff} 2 Puff, Inhalation , ONCE, 1 dose, 05/16/20 at 0215, PAUL
Is this order for a patient with suspected or confirmed COVID-19 infection? No
Does this order have Pulmonary/ Critical Care approval? Yes [facility] cloNIDine (CATAPRES) tablet 0.1 mg 05-16 06:00: 00 05-16 05:13 :00 No .1mg 0.1 mg, Oral, ONCE, 1 dose, Fri /28/20 at 0100, STAT [facility] albuterol 90 mcg/actuati on inhaler 05-16 00:00: 00 Yes [id number] 2{puff} Inhale 2 Puffs every 4 (four) hours as needed for Wheezing or Shortness of Breath. [facility] dicyclomine (BENTYL) 10 mg capsule 2017-09 00:00: 00 Yes 10mg Take 1 capsule by mouth 4 (four) times daily. [facility] traMADOL 50 mg tablet 2017-09 00:00: 00 Yes 50mg Take 1 tablet by mouth every 6 (six) hours as needed for Pain (scale 4-6). [facility] proMETHazin e (PHENERGAN) 25 mg suppository 04-01 00:00: 00 Yes 25mg Insert 1 Suppositor y into rectum every 6 (six) hours as needed for Nausea and Vomiting (N/V). [facility] fluticasone (FLONASE) 50 mcg/actuati on nasal spray 2015-09 15:14: 28 Yes 1{spray } Use 1 [facility] in each nostril daily. Indication s: [address] [facility] each Nostril BID [facility] traZODONE (DESYREL) 50 mg tablet 2015-09 15:14: 28 Yes 50mg Take 50 mg by mouth at bedtime. [facility] omeprazole (PRILOSEC) 40 mg capsule 2015-09 15:14: 27 Yes 40mg Take 40 mg by mouth daily. [facility] fluticasone (FLONASE) 50 mcg/actuati on nasal spray 2015-09 10:14: 28 Yes 1{spray } Use 1 [facility] in each nostril daily. Indication s: 1 [facility] each Nostril B[address] [facility] traZODONE (DESYREL) 50 mg tablet 2015-09 10:14: 28 Yes 50mg Take 50 mg by mouth at bedtime. [facility] omeprazole (PRILOSEC) 40 mg capsule 2015-09 10:14: 27 Yes 40mg Take 40 mg by mouth daily. [facility] lisinopril (PRINIVIL,Z ESTRIL) 20 mg tablet 2015-09 00:00: 00 Yes 20mg Take 1 tablet by mouth 2 (two) times daily. [facility] Immunizations Ordered Immunization Name Filled Immunization Name Date Status Comments Source SARS-COV-2 COVID-19 PFIZER VACCINE 2021-02-07 00:00:00 Completed [facility] SARS-COV-2 COVID-19 PFIZER VACCINE 2021-02-07 00:00:00 Completed [facility] SARS-COV-2 COVID-19 PFIZER VACCINE 2021-02-07 00:00:00 Completed [facility] SARS-COV-2 COVID-19 PFIZER VACCINE 2021-02-07 00:00:00 Completed [facility] SARS-COV-2 COVID-19 PFIZER VACCINE 2021-02-07 00:00:00 Completed [facility] SARS-COV-2 COVID-19 PFIZER VACCINE 2021-02-07 00:00:00 Completed [facility] SARS-COV-2 COVID-19 PFIZER VACCINE 2021-02-07 00:00:00 Completed [facility] SARS-COV-2 COVID-19 PFIZER VACCINE 2021-02-07 00:00:00 Completed [facility] SARS-COV-2 COVID-19 PFIZER VACCINE 2021-02-07 00:00:00 Completed [facility] SARS-COV-2 COVID-19 PFIZER VACCINE 2021-02-07 00:00:00 Completed [facility] SARS-COV-2 COVID-19 PFIZER VACCINE 2021-02-07 00:00:00 Completed [facility] SARS-COV-2 COVID-19 PFIZER VACCINE 2021-02-07 00:00:00 Completed [facility] SARS-COV-2 COVID-19 PFIZER VACCINE 2021-02-07 00:00:00 Completed [facility] SARS-COV-2 COVID-19 PFIZER VACCINE 2021-02-07 00:00:00 Completed [facility] SARS-COV-2 COVID-19 PFIZER VACCINE 2021-02-07 00:00:00 Completed [facility] SARS-COV-2 COVID-19 PFIZER VACCINE 2021-02-07 00:00:00 Completed [facility] SARS-COV-2 COVID-19 PFIZER VACCINE 2021-02-07 00:00:00 Completed [facility] SARS-COV-2 COVID-19 PFIZER VACCINE 2021-02-07 00:00:00 Completed [facility] SARS-COV-2 COVID-19 PFIZER VACCINE 2021-02-07 00:00:00 Completed [facility] SARS-COV-2 COVID-19 PFIZER VACCINE 2021-02-07 00:00:00 Completed [facility] SARS-COV-2 COVID-19 PFIZER VACCINE 2021-02-07 00:00:00 Completed [facility] SARS-COV-2 COVID-19 PFIZER VACCINE 2021-02-07 00:00:00 Completed [facility] SARS-COV-2 COVID-19 PFIZER VACCINE 2021-02-07 00:00:00 Completed [facility] SARS-COV-2 COVID-19 PFIZER VACCINE 2021-02-07 00:00:00 Completed [facility] SARS-COV-2 COVID-19 PFIZER VACCINE 2021-02-07 00:00:00 Completed [facility] SARS-COV-2 COVID-19 PFIZER VACCINE 2021-02-07 00:00:00 Completed [facility] SARS-COV-2 COVID-19 PFIZER VACCINE 2021-02-07 00:00:00 Completed [facility] SARS-COV-2 COVID-19 PFIZER VACCINE 2021-02-07 00:00:00 Completed [facility] SARS-COV-2 COVID-19 PFIZER VACCINE 2021-02-07 00:00:00 Completed [facility] SARS-COV-2 COVID-19 PFIZER VACCINE 2021-02-07 00:00:00 Completed [facility] SARS-COV-2 COVID-19 PFIZER VACCINE 2021-02-07 00:00:00 Completed [facility] SARS-COV-2 COVID-19 PFIZER VACCINE 2021-02-07 00:00:00 Completed [facility] SARS-COV-2 COVID-19 PFIZER VACCINE 2021-02-07 00:00:00 Completed [facility] SARS-COV-2 COVID-19 PFIZER VACCINE 2021-02-07 00:00:00 Completed [facility] SARS-COV-2 COVID-19 PFIZER VACCINE 2021-02-07 00:00:00 Completed [facility] SARS-COV-2 COVID-19 PFIZER VACCINE 2021-02-07 00:00:00 Completed [facility] SARS-COV-2 COVID-19 PFIZER VACCINE 2021-02-07 00:00:00 Completed [facility] SARS-COV-2 COVID-19 PFIZER VACCINE 2021-02-07 00:00:00 Completed [facility] SARS-COV-2 COVID-19 PFIZER VACCINE 2021-02-07 00:00:00 Completed [facility] SARS-COV-2 COVID-19 PFIZER VACCINE 2021-02-07 00:00:00 Completed [facility] SARS-COV-2 COVID-19 PFIZER VACCINE 2021-02-07 00:00:00 Completed [facility] SARS-COV-2 COVID-19 PFIZER VACCINE 2021-02-07 00:00:00 Completed [facility] SARS-COV-2 COVID-19 PFIZER VACCINE 2021-02-07 00:00:00 Completed [facility] SARS-COV-2 COVID-19 PFIZER VACCINE 2021-02-07 00:00:00 Completed [facility] SARS-COV-2 COVID-19 PFIZER VACCINE 2021-02-07 00:00:00 Completed [facility] SARS-COV-2 COVID-19 PFIZER VACCINE 2021-02-07 00:00:00 Completed [facility] SARS-COV-2 COVID-19 PFIZER VACCINE 2021-02-07 00:00:00 Completed [facility] SARS-COV-2 COVID-19 PFIZER VACCINE 2021-02-07 00:00:00 Completed [facility] SARS-COV-2 COVID-19 PFIZER VACCINE 2021-02-07 00:00:00 Completed [facility] SARS-COV-2 COVID-19 PFIZER VACCINE 2021-02-07 00:00:00 Completed [facility] SARS-COV-2 COVID-19 PFIZER VACCINE 2021-02-07 00:00:00 Completed [facility] SARS-COV-2 COVID-19 PFIZER VACCINE 2021-02-07 00:00:00 Completed [facility] SARS-COV-2 COVID-19 PFIZER VACCINE 2021-02-07 00:00:00 Completed [facility] SARS-COV-2 COVID-19 PFIZER VACCINE 2021-01-10 00:00:00 Completed [facility] SARS-COV-2 COVID-19 PFIZER VACCINE 2021-01-10 00:00:00 Completed [facility] SARS-COV-2 COVID-19 PFIZER VACCINE 2021-01-10 00:00:00 Completed [facility] SARS-COV-2 COVID-19 PFIZER VACCINE 2021-01-10 00:00:00 Completed [facility] SARS-COV-2 COVID-19 PFIZER VACCINE 2021-01-10 00:00:00 Completed [facility] SARS-COV-2 COVID-19 PFIZER VACCINE 2021-01-10 00:00:00 Completed [facility] SARS-COV-2 COVID-19 PFIZER VACCINE 2021-01-10 00:00:00 Completed [facility] SARS-COV-2 COVID-19 PFIZER VACCINE 2021-01-10 00:00:00 Completed [facility] SARS-COV-2 COVID-19 PFIZER VACCINE 2021-01-10 00:00:00 Completed [facility] SARS-COV-2 COVID-19 PFIZER VACCINE 2021-01-10 00:00:00 Completed [facility] SARS-COV-2 COVID-19 PFIZER VACCINE 2021-01-10 00:00:00 Completed [facility] SARS-COV-2 COVID-19 PFIZER VACCINE 2021-01-10 00:00:00 Completed [facility] SARS-COV-2 COVID-19 PFIZER VACCINE 2021-01-10 00:00:00 Completed [facility] SARS-COV-2 COVID-19 PFIZER VACCINE 2021-01-10 00:00:00 Completed [facility] SARS-COV-2 COVID-19 PFIZER VACCINE 2021-01-10 00:00:00 Completed [facility] SARS-COV-2 COVID-19 PFIZER VACCINE 2021-01-10 00:00:00 Completed [facility] SARS-COV-2 COVID-19 PFIZER VACCINE 2021-01-10 00:00:00 Completed [facility] SARS-COV-2 COVID-19 PFIZER VACCINE 2021-01-10 00:00:00 Completed [facility] SARS-COV-2 COVID-19 PFIZER VACCINE 2021-01-10 00:00:00 Completed [facility] SARS-COV-2 COVID-19 PFIZER VACCINE 2021-01-10 00:00:00 Completed [facility] SARS-COV-2 COVID-19 PFIZER VACCINE 2021-01-10 00:00:00 Completed [facility] SARS-COV-2 COVID-19 PFIZER VACCINE 2021-01-10 00:00:00 Completed [facility] SARS-COV-2 COVID-19 PFIZER VACCINE 2021-01-10 00:00:00 Completed [facility] SARS-COV-2 COVID-19 PFIZER VACCINE 2021-01-10 00:00:00 Completed [facility] SARS-COV-2 COVID-19 PFIZER VACCINE 2021-01-10 00:00:00 Completed [facility] SARS-COV-2 COVID-19 PFIZER VACCINE 2021-01-10 00:00:00 Completed [facility] SARS-COV-2 COVID-19 PFIZER VACCINE 2021-01-10 00:00:00 Completed [facility] SARS-COV-2 COVID-19 PFIZER VACCINE 2021-01-10 00:00:00 Completed [facility] SARS-COV-2 COVID-19 PFIZER VACCINE 2021-01-10 00:00:00 Completed [facility] SARS-COV-2 COVID-19 PFIZER VACCINE 2021-01-10 00:00:00 Completed [facility] SARS-COV-2 COVID-19 PFIZER VACCINE 2021-01-10 00:00:00 Completed [facility] SARS-COV-2 COVID-19 PFIZER VACCINE 2021-01-10 00:00:00 Completed [facility] SARS-COV-2 COVID-19 PFIZER VACCINE 2021-01-10 00:00:00 Completed [facility] SARS-COV-2 COVID-19 PFIZER VACCINE 2021-01-10 00:00:00 Completed [facility] SARS-COV-2 COVID-19 PFIZER VACCINE 2021-01-10 00:00:00 Completed [facility] SARS-COV-2 COVID-19 PFIZER VACCINE 2021-01-10 00:00:00 Completed [facility] SARS-COV-2 COVID-19 PFIZER VACCINE 2021-01-10 00:00:00 Completed [facility] SARS-COV-2 COVID-19 PFIZER VACCINE 2021-01-10 00:00:00 Completed [facility] SARS-COV-2 COVID-19 PFIZER VACCINE 2021-01-10 00:00:00 Completed [facility] SARS-COV-2 COVID-19 PFIZER VACCINE 2021-01-10 00:00:00 Completed [facility] SARS-COV-2 COVID-19 PFIZER VACCINE 2021-01-10 00:00:00 Completed [facility] SARS-COV-2 COVID-19 PFIZER VACCINE 2021-01-10 00:00:00 Completed [facility] SARS-COV-2 COVID-19 PFIZER VACCINE 2021-01-10 00:00:00 Completed [facility] SARS-COV-2 COVID-19 PFIZER VACCINE 2021-01-10 00:00:00 Completed [facility] SARS-COV-2 COVID-19 PFIZER VACCINE 2021-01-10 00:00:00 Completed [facility] SARS-COV-2 COVID-19 PFIZER VACCINE 2021-01-10 00:00:00 Completed [facility] SARS-COV-2 COVID-19 PFIZER VACCINE 2021-01-10 00:00:00 Completed [facility] SARS-COV-2 COVID-19 PFIZER VACCINE 2021-01-10 00:00:00 Completed [facility] SARS-COV-2 COVID-19 PFIZER VACCINE 2021-01-10 00:00:00 Completed [facility] SARS-COV-2 COVID-19 PFIZER VACCINE 2021-01-10 00:00:00 Completed [facility] SARS-COV-2 COVID-19 PFIZER VACCINE 2021-01-10 00:00:00 Completed [facility] SARS-COV-2 COVID-19 PFIZER VACCINE 2021-01-10 00:00:00 Completed [facility] SARS-COV-2 COVID-19 PFIZER VACCINE 2021-01-10 00:00:00 Completed [facility] SARS-COV-2 COVID-19 PFIZER VACCINE Unknown Completed [facility] SARS-COV-2 COVID-19 PFIZER VACCINE Unknown Completed [facility] SARS-COV-2 COVID-19 PFIZER VACCINE Unknown Completed [facility] SARS-COV-2 COVID-19 PFIZER VACCINE Unknown Completed [facility] SARS-COV-2 COVID-19 PFIZER VACCINE Unknown Completed [facility] SARS-COV-2 COVID-19 PFIZER VACCINE Unknown Completed [facility] SARS-COV-2 COVID-19 PFIZER VACCINE Unknown Completed [facility] SARS-COV-2 COVID-19 PFIZER VACCINE Unknown Completed [facility] SARS-COV-2 COVID-19 PFIZER VACCINE Unknown Completed [facility] SARS-COV-2 COVID-19 PFIZER VACCINE Unknown Completed [facility] SARS-COV-2 COVID-19 PFIZER VACCINE Unknown Completed [facility] SARS-COV-2 COVID-19 PFIZER VACCINE Unknown Completed [facility] SARS-COV-2 COVID-19 PFIZER VACCINE Unknown Completed [facility] SARS-COV-2 COVID-19 PFIZER VACCINE Unknown Completed [facility] SARS-COV-2 COVID-19 PFIZER VACCINE Unknown Completed [facility] SARS-COV-2 COVID-19 PFIZER VACCINE Unknown Completed [facility] SARS-COV-2 COVID-19 PFIZER VACCINE Unknown Completed [facility] SARS-COV-2 COVID-19 PFIZER VACCINE Unknown Completed [facility] SARS-COV-2 COVID-19 PFIZER VACCINE Unknown Completed [facility] SARS-COV-2 COVID-19 PFIZER VACCINE Unknown Completed [facility] SARS-COV-2 COVID-19 PFIZER VACCINE Unknown Completed [facility] SARS-COV-2 COVID-19 PFIZER VACCINE Unknown Completed [facility] SARS-COV-2 COVID-19 PFIZER VACCINE Unknown Completed [facility] SARS-COV-2 COVID-19 PFIZER VACCINE Unknown Completed [facility] SARS-COV-2 COVID-19 PFIZER VACCINE Unknown Completed [facility] Vital Signs Vital Name Observation Time Observation Value Comments S ource Systolic blood pressure 2023-08-10 17:31:00 146 mm[Hg] [facility] Diastolic blood pressure 2023-08-10 17:31:00 79 mm[Hg] [place] [facility] Heart rate 2023-08-10 17:31:00 66 /min [facility] 2023-08-10 17:31:00 19 /min [facility] Body height 2023-08-10 17:31:00 154.9 cm [facility] [place] Body weight 2023-08-10 17:31:00 74.39 kg [facility] [place] BMI 2023-08-10 17:31:00 30.99 kg/m2 General acute hospital Oxygen saturation in Arterial blood by Pulse oximetry 2023-08-10 17:31:00 94 /min [facility] Systolic blood pressure 2023-03-16 14:53:00 155 mm[Hg] [place] [facility] Diastolic blood pressure 2023-03-16 14:53:00 91 mm[Hg] General acute hospital Heart rate 2023-03-16 14:49:00 60 /min [facility] Res[facility] rate 2023-03-16 14:49:00 18 /min [facility] Body height 2023-03-16 14:49:00 154.9 cm General acute hospital Body weight 2023-03-16 14:49:00 74.617 kg [facility] [place] BMI 2023-03-16 14:49:00 31.08 kg/m2 General acute hospital Oxygen saturation in Arterial blood by Pulse oximetry 2023-03-16 14:49:00 92 /min [facility] [place] Systolic blood pressure 2020-10-11 00:00:00 106 mm[Hg] [facility] Diastolic blood pressure 2020-10-11 00:00:00 74 mm[Hg] [facility] Heart rate 2020-10-11 00:00:00 63 /min [facility] Respiratory rate 2020-10-11 00:00:00 16 /min [facility] Oxygen saturation in Arterial blood by Pulse oximetry 2020-10-11 00:00:00 98 /min General acute hospital Body temperature 2020-10-10 21:35:00 37.11 Luisa [facility] Body height 2020-10-10 21:35:00 157.5 cm General acute hospital Body weight 2020-10-10 21:35:00 77.111 kg General acute hospital BMI 2020-10-10 21:35:00 31.09 kg/m2 General acute hospital Systolic blood pressure 2020-10-11 00:00:00 106 mm[Hg] General acute hospital Diastolic blood pressure 2020-10-11 00:00:00 74 mm[Hg] General acute hospital Heart rate 2020-10-11 00:00:00 63 /[facility] Respiratory rate 2020-10-11 00:00:00 16 /min [facility] Oxygen saturation in Arterial blood by Pulse oximetry 2020-10-11 00:00:00 98 /min General acute hospital Body temperature 2020-10-10 21:35:00 37.11 [facility] Body height 2020-10-10 21:35:00 157.5 cm General acute hospital Body weight 2020-10-10 21:35:00 77.111 kg General acute hospital BMI 2020-10-10 21:35:00 31.09 kg/m2 General acute hospital Systolic blood pressure 2020-05-16 06:00:00 163 mm[Hg] General acute hospital Diastolic blood pressure 2020-05-16 06:00:00 74 mm[Hg] General acute hospital Heart rate 2020-05-16 06:00:00 64 /min [facility] Respiratory rate 2020-05-16 06:00:00 20 /min [facility] Oxygen saturation in Arterial blood by Pulse oximetry 2020-05-16 06:00:00 98 /min General acute hospital Body temperature 2020-05-16 02:44:00 37.22 Luisa [facility] Body height 2020-05-16 02:44:00 152.4 cm General acute hospital Body weight 2020-05-16 02:44:00 77.111 kg General acute hospital BMI 2020-05-16 02:44:00 33.20 kg/m2 General acute hospital Systolic blood pressure 2020-05-16 06:00:00 163 mm[Hg] General acute hospital Diastolic blood pressure 2020-05-16 06:00:00 74 mm[Hg] General acute hospital Heart rate 2020-05-16 06:00:00 64 /min [facility] Respiratory rate 2020-05-16 06:00:00 20 /min [facility] Oxygen saturation in Arterial blood by Pulse oximetry 2020-05-16 06:00:00 98 /min General acute hospital Body temperature 2020-05-16 02:44:00 37.22 Luisa [facility] Body height 2020-05-16 02:44:00 152.4 cm General acute hospital Body weight 2020-05-16 02:44:00 77.111 kg General acute hospital BMI 2020-05-16 02:44:00 33.20 kg/m2 General acute hospital Procedures Procedure Date / Time Performed Performing Clinician Source CONSENT/REFUSAL FOR DIAGNOSIS AND TREATMENT 2023-11-24 15:20:03 Doctor Unassigned, [place] [facility] ASSIGNMENT OF BENEFITS 2023-11-24 15:19:35 Docto r Unassigned, [place] [facility] DME/SUPPLY JUSTIFICATION 2023-08-10 06:01:00 Doc tor Unassigned, [place] [facility] SLEEP STUDY DATA REPORT 2023-05-03 05:01:00 Doct or Unassigned, [place] [facility] OP CLINIC NOTES/CONSULTS 2023-02-02 05:01:00 Doc tor Unassigned, [place] [facility] REFERRAL- REQUEST/RESPONSE 2022-12-22 05:01:00 Doctor Unassigned, [place] [facility] ASSIGNMENT OF BENEFITS 2022-09-29 15:29:59 Docto r Unassigned, [place] [facility] REFERRAL- REQUEST/RESPONSE 2022-09-02 06:01:00 Doctor Unassigned, [place] [facility] EXTERNAL PROVIDER - ADC REFERRAL 2021-03-20 05:01:00 Doctor Unassigned, [place] [facility] LIPASE 2020-10-10 23:18:00 [facility] (67418[facility] (ALB,T.PRO,BILI T,BU/BC,ALT,AST,ALK PHOS) 2020-10-10 23:18:00 [facility]OLIC PANEL (NA, K, CL, CO2, GLUCOSE, BUN, CREATININE, CA) 2020-10-10 23:18:00 Darrick [facility] CBC WITH DIFF 2020-10-10 23:18:00 Anabela [facility] URINALYSIS 2020-10-10 23:04:00 [place], [facility] CT ABDOMEN PELVIS WO CONTRAST 2020-10-10 22:23:01 [place], [facility] NOTICE OF PRIVACY PRACTICES 2020-10-10 21:29:06 Doctor Unassigned, [place] [facility] CONSENT/REFUSAL FOR DIAGNOSIS AND TREATMENT 2020-10-10 21:28:36 Doctor Unassigned, [place] [facility] EKG-12 LEAD 2020-05-16 05:28:45 Margaret Pemberton [facility] LIPASE 2020-05-16 04:35:00 Margaret Pemberton [facility] TROPONIN I 2020-05-16 04:35:00 Margaret Pemberton [facility] COMP. METABOLIC PANEL (60695) 2020-05-16 04:35:00 Margaret Pemberton [facility] CBC WITH DIFF 2020-05-16 04:35:00 Margaret Pemberton [facility] COVID-19 (ID NOW RAPID TESTING) 2020-05-16 04:35:00 Margaret Pemberton [facility] XR CHEST 1 VW 2020-05-16 04:16:00 Margaret Pemberton [facility] URINALYSIS 2020-05-16 03:08:00 Shreyas Mota [facility] NOTICE OF PRIVACY PRACTICES 2020-05-16 02:35:16 Doctor Unassigned, [place] [facility] CONSENT/REFUSAL FOR DIAGNOSIS AND TREATMENT 2020-05-16 02:34:46 Doctor Unassigned, [place] [facility] Encounters Start Date/Time End Date/Time Encounter Type Admission Type Attending [facility] Care Department Encounter ID Source 2023-02-16 16:30:48 Outpatient [facility] [id number] [facility] 2022-10-07 08:55:29 Outpatient [facility] [id number] [facility] 2022-08-31 07:51:11 Outpatient [facility] [id number] [facility] 2022-08-10 10:50:36 Outpatient [facility] [id number] [facility] 2022-04-14 07:54:13 Outpatient JOSE ANGEL LOZA [facility] [id number] [facility] 2022-04-13 10:22:44 Outpatient JOSE ANGEL LOZA [facility] [id number] [facility] 2022-03-24 15:48:13 Outpatient [facility] [id number] [facility] 2022-02-24 15:21:43 Outpatient [facility] [id number] [facility] 2022-02-23 12:34:09 Outpatient JOSE ANGEL LOZA [facility] [id number] [facility] 2021-07-18 18:58:18 Emergency [facility] [id number] [facility] 2021-07-17 14:37:11 Emergency [facility] [id number] [facility] 2024-06-01 10:53:52 2024-06-01 10:53:52 Outpatient [facility] [id number] Kelvin Lieberman 2024-05-02 10:14:40 2024-05-02 10:14:40 Outpatient [facility] SFA [id number] Kelvin Lieberman 2024-02-02 09:40:26 2024-02-02 09:40:26 Outpatient [facility] SFA [id number] Kelvin Lieberman 2023-11-24 09:30:00 2023-11-24 10:27:33 Ancillary Visit Steevnson Love Craig L [facility] 1.2.840.114 350.1.13.10 4.2.7.2.[id number] [facility] 2023-11-24 00:00:00 2023-11-24 00:00:00 Orders Only Doctor Unassigned, [place] [facility] 1.284.114 350.1.13.10 4.2.7.2.[id number] [facility] 2023-11-21 09:30:00 2023-11-21 10:14:20 Ancillary Visit Stevenson Love Kevin [facility] 1.840.114 350.1.13.10 4.2.7.2.[id number] [facility] 2023-11-18 09:30:00 2023-11-18 09:30:00 Outpatient R KERRI PINA CRAIG [facility] [id number] [facility] 2023-11-16 09:30:00 2023-11-16 10:30:54 Ancillary Visit Anabela Kimbrough Craig L [facility] 1..840.114 350.1.13.10 4.2.7.2.[id number] [facility] 2023-11-11 09:30:00 2023-11-11 10:15:00 Ancillary Visit Yaneth Buckley Craig L [facility] 1..840.114 350.1.13.10 4.2.7.2.[id number] [facility] 2023-11-09 09:30:00 2023-11-09 13:38:47 Ancillary Visit Stevenson Love Craig L [facility] 1.2.840.114 350.1.13.10 4.2.7.2.[id number] [facility] 2023-11-03 08:00:00 2023-11-03 08:00:00 Outpatient KERRI TA CRAIG [facility] [id number] [facility] 2023-09-27 14:21:45 2023-09-27 14:21:45 Outpatient FRANK [facility] [id number] Kelvin Lieberman 2023-09-27 09:30:00 2023-09-27 13:50:38 Outpatient KERRI TA CRAIG [facility] [id number] [facility] 2023-09-27 09:30:00 2023-09-27 10:15:00 Ancillary Visit Stevenson Love Craig L [facility] 1.2.840.114 350.1.13.10 4.2.7.2.[id number] [facility] 2023-09-16 09:30:00 2023-09-16 10:43:41 Ancillary Visit Lucille Love Craig L [facility] 1.2.840.114 350.1.13.10 4.2.7.2.[id number] [facility] 2023-09-14 09:30:00 2023-09-14 10:40:08 Ancillary Visit Lucille Love Craig L [facility] 1.2.840.114 350.1.13.10 4.2.7.2.[id number] [facility] 2023-08-30 09:30:00 2023-08-30 11:11:31 Outpatient KERRI TA CRAIG [facility] [id number] [facility] 2023-08-30 09:30:00 2023-08-30 10:15:00 Ancillary Visit Lucille Love Craig [facility] 1.2.840.114 350.1.13.10 4.2.7.2.[id number] [facility] 2023-08-17 00:00:00 2023-08-17 00:00:00 Telephone Romie Arriaga [facility] 1.2.840.114 350.1.13.10 4.2.7.2.[id number] [facility] 2023-08-16 08:45:00 2023-08-16 09:23:42 Ancillary Visit Lucille Love Craig L [facility] 1.2.840.114 350.1.13.10 4.2.7.2.[id number] [facility] 2023-08-15 00:00:00 2023-08-15 00:00:00 Telephone Romie Arriaga [facility] 1.2.840.114 350.1.13.10 4.2.7.2.[id number] [facility] 2023-08-10 11:30:00 2023-08-10 12:00:00 Office Visit Romie Arriaga [facility] 1.2.840.114 350.1.13.10 4.2.7.2.[id number] [facility] 2023-08-10 11:30:00 2023-08-10 11:30:00 Outpatient R ROMIE ARRIAGA STRAHIL [facility] [id number] [facility] 2023-08-10 00:00:00 2023-08-10 00:00:00 Orders Only Doctor Unassigned, [place] [facility] 1.84.114 350.1.13.10 4.2.7.2.[id number] [facility] 2023-08-09 08:45:00 2023-08-09 10:23:15 Ancillary Visit Lucille Love Craig L [facility] 1..840.114 350.1.13.10 4.2.7.2.[id number] [facility] 2023-08-04 16:08:13 2023-08-04 16:08:13 Outpatient SFA [facility] [id number] Kelvin Marx [facility] 2023-08-04 08:45:00 2023-08-04 09:32:06 Ancillary Visit Anabela Kimbrough Craig L [facility] 1..840.114 350.1.13.10 4.2.7.2.[id number] [facility] 2023-07-29 20:00:00 2023-07-29 20:00:00 Outpatient R ROMIE ARRIAGA STRAHIL [facility] [id number] [facility] 2023-07-28 09:30:00 2023-07-28 10:13:39 Outpatient R KERRI PINA CRAIG [facility] [id number] [facility] 2023-07-28 09:30:00 2023-07-28 10:13:39 Ancillary Visit Yaneth Buckley Craig L [facility] 1..840.114 350.1.13.10 4.2.7.2.[id number] [facility] 2023-07-26 08:45:00 2023-07-26 09:30:00 Ancillary Visit Veronica Medina Craig L [facility] 1.2.840.114 350.1.13.10 4.2.7.2.[id number] [facility] 2023-07-21 08:45:00 2023-07-21 09:30:00 Ancillary Visit Stevenson Love Craig L [facility] 1.2.840.114 350.1.13.10 4.2.7.2.[id number] [facility] 2023-07-18 09:30:00 2023-07-18 10:15:00 Ancillary Visit Veronica Medina Craig L [facility] 1.2.840.114 350.1.13.10 4.2.7.2.[id number] [facility] 2023-07-18 09:30:00 2023-07-18 09:30:00 Outpatient R KERRI PINA CRAIG [facility] [id number] [facility] 2023-07-08 10:15:00 2023-07-08 11:00:00 Ancillary Visit Anabela Kimbrough Craig L [facility] 1.2.840.114 350.1.13.10 4.2.7.2.[id number] [facility] 2023-07-06 08:45:00 2023-07-06 09:30:00 Ancillary Visit Stevenson Love Craig L [facility] 1.2.840.114 350.1.13.10 4.2.7.2.[id number] [facility] 2023-07-01 09:00:00 2023-07-01 09:43:38 Ancillary Visit Lucille Love Craig L [facility] 1.2.840.114 350.1.13.10 4.2.7.2.[id number] [facility] 2023-06-28 08:45:00 2023-06-28 09:32:45 Ancillary Visit Ivan Kerri Sommers [facility] 1.2.840.114 350.1.13.10 4.2.7.2.[id number] [facility] 2023-06-07 09:30:00 2023-06-07 10:13:36 Outpatient R KERRI PINA CRAIG [facility] [id number] [facility] 2023-06-07 09:30:00 2023-06-07 10:13:36 Ancillary Visit Veronica Medina Craig L [facility] 1.2.840.114 350.1.13.10 4.2.7.2.[id number] [facility] 2023-06-06 18:51:35 2023-06-06 18:51:35 Outpatient SFA [facility] [id number] Kelvin Lieberman 2023-05-26 09:30:00 2023-05-26 10:14:41 Ancillary Visit Yaneth Buckley Craig L [facility] 1.2.840.114 350.1.13.10 4.2.7.2.[id number] [facility] 2023-05-24 08:45:00 2023-05-24 09:30:00 Ancillary Visit Yaneth Buckley Craig L [facility] 1.2.840.114 350.1.13.10 4.2.7.2.[id number] [facility] 2023-05-16 09:15:00 2023-05-16 09:59:09 Outpatient R KERRI PINA [facility] [id number] [facility] 2023-05-16 09:15:00 2023-05-16 09:59:09 Ancillary Visit Bel Dominguez Craig L [facility] 1..840.114 350.1.13.10 4.2.7.2.[id number] 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 2023-05-03 20:00:00 2023-05-03 20:00:00 Outpatient R ROMIE ARRIAGA STRAHIL [facility] [id number] [facility] 2023-05-03 00:00:00 2023-05-03 00:00:00 Orders Only Doctor Unassigned, [place] [facility] 1..840.114 350.1.13.10 4.2.7.2.[id number] [facility] 2023-04-11 11:21:25 2023-04-11 11:21:25 Outpatient SFA SFA [id number] Kelvin F Mio 2023-04-08 15:21:49 2023-04-08 15:21:49 Outpatient SFA SFA [id number] Kelvin F Mio 2023-03-30 15:42:45 2023-03-30 15:42:45 Outpatient SFA SFA [id number] Kelvin F Mio 2023-03-16 10:00:00 2023-03-16 10:30:00 Office Visit Romie Arriaga [facility] 1.2.840.114 350.1.13.10 4.2.7.2.[id number] [facility] 2023-03-16 10:00:00 2023-03-16 10:20:44 Outpatient R ROMIE ARRIAGA STRAHIL [facility] [id number] [facility] 2023-02-02 09:30:00 2023-02-02 10:09:30 Ancillary Visit Lucille Anthony Craig L [facility] 1.2.840.114 350.1.13.10 4.2.7.2.[id number] [facility] 2023-02-02 00:00:00 2023-02-02 00:00:00 Orders Only Doctor Unassigned, [place] [facility] 1.2840.114 350.1.13.10 4.2.7.2.[id number] [facility] 2023-02-01 11:00:00 2023-02-01 11:45:00 Ancillary Visit Lucille Anthony Craig L [facility] 1.2.840.114 350.1.13.10 4.2.7.2.[id number] [facility] 2023-01-27 09:30:00 2023-01-27 11:30:06 Outpatient R KERRI PINA [facility] [id number] [facility] 2023-01-19 10:15:00 2023-01-19 11:41:12 Ancillary Visit Lucille Anthony Craig L [facility] 1.2.840.114 350.1.13.10 4.2.7.2.[id number] [facility] 2023-01-17 09:30:00 2023-01-17 09:30:00 Outpatient R PINA, KERRI [facility] [id number] [facility] 2023-01-14 13:45:00 2023-01-14 13:45:00 Outpatient R YOVANI KERRI [facility] [id number] [facility] 2023-01-14 10:40:00 2023-01-14 10:40:00 Outpatient FRANK [facility] [id number] Kelvin Lieberman 2023-01-13 10:15:00 2023-01-13 11:14:45 Ancillary Visit Lucille Anthony Craig L [facility] 1.2.840.114 350.1.13.10 4.2.7.2.[id number] [facility] 2023-01-10 00:00:00 2023-01-10 00:00:00 Case Management Lucille Anthony [facility] 1.2.840.114 350.1.13.10 4.2.7.2.[id number] [facility] 2023-01-05 08:45:00 2023-01-05 09:34:29 Ancillary Visit Lucille Anthony Craig L [facility] 1.2.840.114 350.1.13.10 4.2.7.2.[id number] [facility] 2023-01-05 08:45:00 2023-01-05 09:34:29 Outpatient R YOVANI KERRI [facility] [id number] [facility] 2022-12-30 10:15:00 2022-12-30 11:10:52 Ancillary Visit Lucille Anthony Craig L [facility] 1.2.840.114 350.1.13.10 4.2.7.2.[id number] [facility] 2022-12-28 11:00:00 2022-12-28 11:47:44 Ancillary Visit Lucille Anthony Craig L [facility] 1.2.840.114 350.1.13.10 4.2.7.2.[id number] [facility] 2022-12-22 09:50:20 2022-12-22 09:50:20 Outpatient SFA [facility] [id number] Kelvin Lieberman 2022-12-22 00:00:00 2022-12-22 00:00:00 Orders Only Doctor Unassigned, [place] [facility] 1.2.840.114 350.1.13.10 4.2.7.2.[id number] [facility] 2022-12-16 10:15:00 2022-12-16 11:33:58 Ancillary Visit Lucille Anthony Craig L [facility] 1.2.840.114 350.1.13.10 4.2.7.2.[id number] [facility] 2022-12-13 10:15:00 2022-12-13 11:00:00 Ancillary Visit Lucille Anthony Craig L [facility] 1.2.840.114 350.1.13.10 4.2.7.2.[id number] [facility] 2022-12-09 10:15:00 2022-12-09 11:04:07 Ancillary Visit Lucille Love Craig L [facility] 1.2.840.114 350.1.13.10 4.2.7.2.[id number] [facility] 2022-12-07 10:15:00 2022-12-07 11:12:31 Ancillary Visit [facility]ri [facility] 1.2.840.114 350.1.13.10 4.2.7.2.[id number] [facility] 2022-11-30 10:15:00 2022-11-30 11:00:00 Ancillary Visit Stevenson Love Kerri Ford [facility] 1.2.840.114 350.1.13.10 4.2.7.2.[id number] [facility] 2022-11-30 09:30:00 2022-11-30 10:21:41 Ancillary Visit Lucille Anthony Kerri L [facility] 1.2.840.114 350.1.13.10 4.2.7.2.[id number] [facility] 2022-11-29 11:00:00 2022-11-29 11:47:14 Ancillary Visit Stevenson Love Craig L [facility] 1.2.840.114 350.1.13.10 4.2.7.2.[id number] [facility] 2022-11-29 10:15:00 2022-11-29 11:11:38 Ancillary Visit Lucille Anthony Craig L [facility] 1.2.840.114 350.1.13.10 4.2.7.2.[id number] [facility] 2022-11-25 11:00:00 2022-11-25 11:45:00 Ancillary Visit Lucille Love Craig L [facility] 1.2.840.114 350.1.13.10 4.2.7.2.[id number] [facility] 2022-11-25 10:15:00 2022-11-25 11:02:22 Ancillary Visit Lucille Anthony Craig L [facility] 1.2840.114 350.1.13.10 4.2.7.2.[id number] [facility] 2022-11-22 11:00:00 2022-11-22 11:31:11 Ancillary Visit Stevenson Love Craig L [facility] 1.2840.114 350.1.13.10 4.2.7.2.[id number] [facility] 2022-11-22 10:15:00 2022-11-22 10:58:25 Outpatient R KERRI PINA [facility] [id number] [facility] 2022-11-22 10:15:00 2022-11-22 10:58:25 Ancillary Visit Lucille Anthony Craig L [facility] 1.2840.114 350.1.13.10 4.2.7.2.[id number] [facility] 2022-11-16 10:15:00 2022-11-16 10:15:00 Outpatient R KERRI PINA [facility] [id number] [facility] 2022-11-11 10:15:00 2022-11-11 11:00:57 Ancillary Visit Lucille Love Craig L [facility] 1.2840.114 350.1.13.10 4.2.7.2.[id number] [facility] 2022-11-11 09:30:00 2022-11-11 10:12:04 Ancillary Visit Lucille Anthony Craig L [facility] 1.2840.114 350.1.13.10 4.2.7.2.[id number] [facility] 2022-11-08 11:00:00 2022-11-08 11:31:38 Ancillary Visit Ivan Stevenson Marx Kerri Pina [facility] 1.2.840.114 350.1.13.10 4.2.7.2.[id number] [facility] 2022-11-08 10:15:00 2022-11-08 11:15:30 Ancillary Visit Lucille Anthony Craig L [facility] 1.2.840.114 350.1.13.10 4.2.7.2.[id number] [facility] 2022-11-05 10:15:00 2022-11-05 10:44:41 Ancillary Visit Lucille Love Craig L [facility] 1.2.840.114 350.1.13.10 4.2.7.2.[id number] [facility] 2022-11-03 11:00:00 2022-11-03 11:45:00 Ancillary Visit Lucille Love Craig L [facility] 1.2.840.114 350.1.13.10 4.2.7.2.[id number] [facility] 2022-10-28 11:00:00 2022-10-28 11:37:59 Ancillary Visit Lucille Love Craig L [facility] 1.2.840.114 350.1.13.10 4.2.7.2.[id number] [facility] 2022-10-28 10:15:00 2022-10-28 11:14:14 Ancillary Visit Lucille Anthony Craig L [facility] 1.2.840.114 350.1.13.10 4.2.7.2.[id number] [facility] 2022-10-26 11:00:00 2022-10-26 11:54:58 Ancillary Visit Lucille Love Craig L [facility] 1.2.840.114 350.1.13.10 4.2.7.2.[id number] [facility] 2022-10-26 10:15:00 2022-10-26 11:12:23 Ancillary Visit Lucille Anthony Craig L [facility] 1.2.840.114 350.1.13.10 4.2.7.2.[id number] [facility] 2022-10-21 11:15:00 2022-10-21 11:56:16 Ancillary Visit Lucille oLve Craig L [facility] 1.2.840.114 350.1.13.10 4.2.7.2.[id number] [facility] 2022-10-21 09:30:00 2022-10-21 10:08:26 Outpatient R KERRI PINA [facility] [id number] [facility] 2022-10-21 09:30:00 2022-10-21 10:08:26 Ancillary Visit Lucille Anthony Craig L [facility] 1.2.840.114 350.1.13.10 4.2.7.2.[id number] [facility] 2022-10-19 00:00:00 2022-10-19 00:00:00 Case Management Lucille Anthony [facility] 1.2.840.114 350.1.13.10 4.2.7.2.[id number] [facility] 2022-10-14 11:00:00 2022-10-14 11:56:14 Ancillary Visit Lucille Anthony [facility] 1.2.840.114 350.1.13.10 4.2.7.2.[id number] [facility] 2022-10-14 10:15:00 2022-10-14 10:54:22 Ancillary Visit Yaneth Buckley Craig L [facility] 1.2.840.114 350.1.13.10 4.2.7.2.[id number] [facility] 2022-10-13 10:15:00 2022-10-13 11:03:15 Ancillary Visit Lucille Anthony Craig L [facility] 1.2.840.114 350.1.13.10 4.2.7.2.[id number] [facility] 2022-10-13 09:30:00 2022-10-13 10:32:21 Ancillary Visit Anabela Kimbrough Craig L [facility] 1.2.840.114 350.1.13.10 4.2.7.2.[id number] [facility] 2022-10-08 09:30:00 2022-10-08 11:34:22 Ancillary Visit Anabela Kimbrough Craig L [facility] 1.2.840.114 350.1.13.10 4.2.7.2.[id number] [facility] 2022-10-06 09:30:00 2022-10-06 10:18:45 Ancillary Visit Flor Kimbroughanne Yovani Kerri Ford [facility] 1.2.840.114 350.1.13.10 4.2.7.2.[id number] [facility] 2022-09-29 09:30:00 2022-09-29 11:59:30 Outpatient R PINAVALENTINIG [facility] [id number] [facility] 2022-09-29 09:30:00 2022-09-29 11:59:30 Ancillary Visit Lucille Anthony PinaKerri [facility] 1.2.840.114 350.1.13.10 4.2.7.2.[id number] [facility] 2022-09-29 00:00:00 2022-09-29 00:00:00 Orders Only Doctor Unassigned, [place] [facility] 1.2840.114 350.1.13.10 4.2.7.2.[id number] [facility] 2022-09-27 11:00:00 2022-09-27 11:59:18 Outpatient R VALENTIN PINAIG [facility] [id number] [facility] 2022-09-27 11:00:00 2022-09-27 11:59:18 Ancillary Visit Chelita Che Craig [facility] 1.2.840.114 350.1.13.10 4.2.7.2.[id number] [facility] 2022-09-02 00:00:00 2022-09-02 00:00:00 Orders Only Doctor Unassigned, [place] [facility] 1.2840.114 350.1.13.10 4.2.7.2.[id number] [facility] 2022-09-01 11:00:00 2022-09-01 11:00:00 Outpatient JOSE ANGEL LOZA [facility] [id number] [facility] 2022-08-17 11:30:00 2022-08-17 11:30:00 Outpatient JOSE ANGEL LOZA [facility] [id number] [facility] 2022-07-06 09:27:36 2022-07-06 09:27:36 Outpatient [facility] [id number] Kelvin Lieberman 2022-02-28 17:05:00 2022-03-30 15:15:00 Inpatient GIULIA GROSS [facility] [id number] [facility] 2021-05-22 15:40:00 2021-05-22 15:40:00 [facility] [id number] [facility] 2021-05-07 10:00:00 2021-05-07 10:00:00 Outpatient [facility] [id number] [facility] 2021-03-20 00:00:00 2021-03-20 00:00:00 Orders Only Doctor Unassigned, [place] [facility] .840.114 350.1.13.10 4.2.7.2.686 [id number] 009 [id number] 2021-03-20 00:00:00 2021-03-20 00:00:00 Orders Only Doctor Unassigned, [place] [facility] ..840.114 350.1.13.10 4.2.7.2.[id number] [facility] 2021-02-07 09:15:00 2021-02-07 09:15:00 Outpatient R [facility] [id number] [facility] 2021-01-10 09:30:00 2021-01-10 09:30:00 Outpatient R CORNELIUS ROSE [facility] [id number] [facility] 2020-10-10 15:39:00 2020-10-10 18:33:00 Emergency Anabela Hollingsworth [facility] 1.2.840.114 350.1.13.10 4.2.7.2.686 [id number] 084 [id number] 2020-10-10 15:39:00 2020-10-10 18:33:00 Emergency Anabela Hollingsworth [facility] 1.2.840.114 350.1.13.10 4.2.7.2.[id number] [facility] 2020-05-15 21:47:00 2020-05-16 01:20:00 Emergency Margaret Pemberton [facility] 1.2.840.114 350.1.13.10 4.2.7.2.686 [id number] 084 [id number] 2020-05-15 21:47:00 2020-05-16 01:20:00 Emergency [facility] 1.2.840.114 350.1.13.10 4.2.7.2.[id number] [facility] Results Test Description Test Time Test Comments Results Result Co mments Source CULTURE, URINE 2024-06-04 14:22:51 SPECIMEN NUMBER: [id number] CULTURE, URINE SPECIMEN NUMBER: [id number] SOURCE: URINE REPORT STATUS: FINAL ISOLATE NUMBER 1: ORGANISM: 06/03/2024 >100,000 CFU/ML GRAM NEGATIVE BACILLI IDENTIFICATION: 06/04/2024 ESCHERICHIA COLI E. COLI AMOX ICILLIN/CA SENSITIVE <=8/4AMPICILLIN SENSITIVE <=8CEFAZOLIN SENSITIVE <=2CEFTRIAXONE SENSITIVE <=1CIPROFLOXACIN RESISTANT >2LEVOFLOXACIN RESISTANT >4NITROFURANTOIN SENSITIVE <=32PIP/TAZOBAC SENSITIVE <=16TOBRAMYCIN SENSITIVE <=4TRIMETH/SULFA SENSITIVE <=2/38 NOTE: NUMBERS DISPLAYED REPRESENT MINIMUM INHIBITORY CONCENTRATION (JEFF) WHICH IS EXPRESSED IN MCG/ML. HEPATITIS PANEL, [id number] 06:33:38* Test Item Value Reference Range Interpretation Comments HEPATITIS A TOTAL AB (test code = 2725) REACTIVE NON-REACTIVE A HEPATITIS B SURF AG (test code = 2739) NON-REACTIVE NON-REACTIVE HEP B CORE TOTAL AB (test code = 2729) REACTIVE NON-REACTIVE A HEPATITIS B SURFACE AB (test code = 2737) REACTIVE NON-REACTIVE A HEPATITIS C ANTIBODY (test code = 4675) NON-REACTIVE NON-REACTIVE INTERPRETATION HEPATITIS A: (test code = 2552) (NOTE) Hepatitis A sero logy consistent with past exposure or previousvaccination to hepatitis A virus. No evidence of current acutehepatitis A infection. INTERPRETATION HEPATITIS B: (test code = 82773) (NOTE) Hepatitis B sero logy consistent with past exposure to hepatitis Bvirus with immunity to hepatitis B virus. No evidence of currentacute hepatitis B infection. INTERPRETATION HEPATITIS C: (test code = 99366) (NOTE) Hepatitis C sero logy shows no evidence of exposure to hepatitisC virus at this time. It can take up to 12 months after exposure tothe hepatitis C virus for antibodies to become detectable in the blood in certain patients. HIV 1/2 4TH GEN, RFLX [id number] 06:33:38* Test Item Value Reference Range Interpretation Comme nts HIV 1/2 4TH GEN, RFLX CONF ( test code = 3514) NON-REACTIVE NON-REACTIVE HEPATITIS A [id number] 06:33:38* Test Item Value Reference Range Interpretation Comme nts HEPATITIS A IgM (test code = 2728) NON-REACTIVE NON-REACTIVE UNLESS OTHERW ISE INDICATED, ALL TESTING PERFORMED AT [facility] [address] [place] [address] DIRECTOR CORPORATE SALES: JEFF ROCKWELL M.D. [place] NUMBER [id number] [facility] [place]. [id number] COMPREHENSIVE METABOLIC [id number] 04:26:37* Test Item Value Reference Range Interpretation Comme nts GLUCOSE (test code = 2217) 85 MG/DL 70-99 BUN (test code = 2208) 14 MG/DL 8-23 CREATININE (test code = 2214) 0.95 MG/DL 0.60-1.30 eGFR (2020 CKD-EPI) (test co de = 43569) 63 ML/MIN/1.73 >60 CALC BUN/CREAT (test code = 2235) 15 RATIO 6-28 SODIUM (test code = 2231) 138 MEQ/L 133-146 POTASSIUM (test code = 2228) 4.7 MEQ/L 3.5-5.4 CHLORIDE (test code = 5) 100 MEQ/L 95-107 CARBON DIOXIDE (test code = 2205) 25 MEQ/L 19-31 CALCIUM (test code = 2208) 9.0 MG/DL 8.5-10.5 PROTEIN, TOTAL (test code = 2228) 7.9 G/DL 6.1-8.3 ALBUMIN (test code = 2200) 4.3 G/DL 3.5-5.2 CALC GLOBULIN (test code = 0) 3.6 G/DL 1.9-3.7 CALC A/G RATIO (test code = 2233) 1.2 RATIO 1.0-2.6 BILIRUBIN, TOTAL (test code = 2206) 0.5 MG/DL <=1.2 ALKALINE PHOSPHATASE (test code = 2203) 88 U/L 40-142 AST (test code = 2217) 22 U/L 9-40 ALT (test code = 2218) 13 U/L 5-40 LIPID [id number] 04:26:37* Test Item Value Reference Range Interpretation Comme nts CHOLESTEROL (test code = 0) 106 MG/DL <200 TRIGLYCERIDES (test code = 2) 100 MG/DL <150 HDL CHOLESTEROL (test code = 2219) 45 MG/DL >39 CALC LDL CHOL (test code = 2236) 42 MG/DL <100 NOTE: CALCULATED LDL IS BASED ON CARINA-STOLL METHOD WHICHINCLUDES ADJUSTABLE TRIGLYCERIDE:VLDL CHOLESTEROL RATIO.THIS FACTOR VARIES BY MEASURED TRIGLYCERIDE AND NON-HDLCHOLESTEROL CONCENTRATIONS WITH INCREASED CALCULATED LDL SEENIN HIGHER TRIGLYCERIDE OR LOWER NON-HDL SPECIMENS. FOR MOREINFORMATION, SEE CLIENT ANNOUNCEMENT AT [email or web address] [email or web address] RATIO LDL/HDL (test code = 2237) 0.93 RATIO <3.22 CBC W/AUTO DIFF WITH [id number] 03:50:13* Test Item Value Reference Range Interpretation Comme nts WBC (test code = 1001) 5.5 K/UL 3.5-11.0 RBC (test code = 1002) 4.90 M/UL 3.80-5.40 HEMOGLOBIN (test code = 1003) 13.4 G/DL 11.5-15.5 HEMATOCRIT (test code = 1004) 42.6 % 34.0-45.0 MCV (test code = 1005) 86.9 fL 80.0-99.0 MCH (test code = 1006) 27.3 PG 25.0-33.0 MCHC (test code = 1007) 31.5 G/DL 31.0-36.0 RDW (test code = 1038) 14.0 % 11.5-15.0 NEUTROPHILS (test code = 1008) 60.0 % LYMPHOCYTES (test code = 1010) 32.4 % MONOCYTES (test code = 1011) 6.5 % EOSINOPHILS (test code = 1012) 0.9 % BASOPHILS (test code = 1013) 0.2 % IMMATURE GRANULOCYTES (test code = 1036) 0.0 % NUCLEATED RBCS (test code = 1065) 0.0 /100 WBC'S See_Comment [Automated messa ge] The system which generated this result transmitted reference range: 0.0. The reference range was not used to interpret this result as normal/abnormal. PLATELET COUNT (test code = 1015) 190 K/UL 130-400 ABSOLUTE NEUTROPHILS (test code = 1066) 3.31 K/UL 1.50-7.50 ABSOLUTE LYMPHOCYTES (test code = 1067) 1.79 K/UL 1.00-4.00 ABSOLUTE MONOCYTES (test code = 1068) 0.36 K/UL 0.20-1.00 ABSOLUTE EOSINOPHILS (test code = 1040) 0.05 K/UL 0.00-0.50 ABSOLUTE BASOPHILS (test code = 1069) 0.01 K/UL 0.00-0.20 ABS IMMATURE GRANULOCYTES (test code = 1020) 0.00 K/UL 0.00-0.10 ABS NUCLEATED RBCS (test code = 20013) 0.00 K/UL 0.00-0.11 CULTURE, [id number] 12:34:42SPECIMEN NUMBER: [id number] CULTURE, URINE SPECIMEN NUMBER: [id number] SOURCE: URINE REPORT STATUS: FINAL ISOLATE NUMBER 1: ORGANISM: 05/04/2024 >100,000 CFU/ML GRAM NEGATIVE BACILLI IDENTIFICATION: 05/05/2024 ESCHERICHIA COLI E. COLI AMOXICILLIN/CA SENSITIVE <=8/4AMPICILLIN RESISTANT >16CEFAZOLIN SENSITIVE <=2CEFTRIAXONE SENSITIVE <=1CIPROFLOXACIN SENSITIVE <=0.25LEVOFLOXACIN SENSITIVE <=0.5NITROFURANTOIN SENSITIVE <=32PIP/TAZOBAC SENSITIVE <=16TOBRAMYCIN INTERMED 8TRIMETH/SULFA RESISTANT > NOTE: NUMBERS DISPLAYED REPRESENT MINIMUM INHIBITORY CO NCENTRATION (JEFF) WHICH IS EXPRESSED IN MCG/ML. UNLESS OTHERWISE INDICATED, ALL TESTING PERFORMED AT [facility] [address] [place] [address] DIRECTOR CORPORATE SALES: Moon [employer]SH[employer] CLIA NUMBER [id number] [place]. [id number] 05:00:52* Test Item Value Reference Range Interpretation Comme [facility] HEMOGLOBIN A1c (test code = 58702) 6.4 % 4.2-5.6 H STATELESS DIABETE S ASSOCIATION GUIDELINES FOR HGB A1C: PREDIABETES/INCREASED RISK . . . . . . . 5.7-6.4% DIAGNOSIS OF DIABETES . . . . . . . . . >=6.5% WITH CONFIRMATION OR APPROPRIATE SYMPTOMS NOTE: ASSAY MAY BE AFFECTED BY HEMOGLOBINOPATHIES (SICKLE CELL ANEMIA, S-C DISEASE, OTHERS) OR ARTIFICIALLY LOWERED BY DECREASED RED CELL SURVIVAL (HEMOLYTIC ANEMIAS, BLOOD LOSS, ETC.). CONSIDER ALTERNATE TESTING OR LABORATORY CONSULTATION. UNLESS OTHERWISE INDICATED, ALL TESTING PERFORMED AT [facility] [address] [place] [address] DIRECTOR CORPORATE SALES: JEFF ROCKWELL M.D. CLIA NUMBER [id number] [place]. [id number] COMPREHENSIVE METABOLIC [id number] 04:02:13* Test Item Value Reference Range Interpretation Comme nts GLUCOSE (test code = 2217) 99 MG/DL 70-99 BUN (test code = 2208) 14 MG/DL 8-23 CREATININE (test code = 2214) 0.93 MG/DL 0.60-1.30 eGFR (2020 CKD-EPI) (test co de = 22128) 65 ML/MIN/1.73 >60 CALC BUN/CREAT (test code = 2235) 15 RATIO 6-28 SODIUM (test code = 2231) 142 MEQ/L 133-146 POTASSIUM (test code = 2228) 4.8 MEQ/L 3.5-5.4 CHLORIDE (test code = 2215) 107 MEQ/L 95-107 CARBON DIOXIDE (test code = 2205) 23 MEQ/L 19-31 CALCIUM (test code = 2208) 9.3 MG/DL 8.5-10.5 PROTEIN, TOTAL (test code = 2228) 7.7 G/DL 6.1-8.3 ALBUMIN (test code = 2200) 4.4 G/DL 3.5-5.2 CALC GLOBULIN (test code = 0) 3.3 G/DL 1.9-3.7 CALC A/G RATIO (test code = 2233) 1.3 RATIO 1.0-2.6 BILIRUBIN, TOTAL (test code = 2206) 0.3 MG/DL <=1.2 ALKALINE PHOSPHATASE (test code = 2203) 88 U/L 40-142 AST (test code = 2217) 16 U/L 9-40 ALT (test code = 2218) 11 U/L 5-40 LIPID [id number] 04:02:13* Test Item Value Reference Range Interpretation Comme nts CHOLESTEROL (test code = 2209) 103 MG/DL <200 TRIGLYCERIDES (test code = 2231) 125 MG/DL <150 HDL CHOLESTEROL (test code = 2219) 45 MG/DL >39 CALC LDL CHOL (test code = 2236) 37 MG/DL <100 NOTE: CALCULATED LDL IS BASED ON CARINA-STOLL METHOD WHICHINCLUDES ADJUSTABLE TRIGLYCERIDE:VLDL CHOLESTEROL RATIO.THIS FACTOR VARIES BY MEASURED TRIGLYCERIDE AND NON-HDLCHOLESTEROL CONCENTRATIONS WITH INCREASED CALCULATED LDL SEENIN HIGHER TRIGLYCERIDE OR LOWER NON-HDL SPECIMENS. FOR MOREINFORMATION, SEE CLIENT ANNOUNCEMENT AT [email or web address] [email or web address] RATIO LDL/HDL (test code = 2237) 0.82 RATIO <3.22 TSH, THIRD [id number] 06:21:49* Test Item Value Reference Range Interpretation Comme nts TSH, THIRD GENERATION (test code = 2821) 0.991 UIU/ML 0.400-4.100 UNLESS OTHERWISE INDICATED, ALL TESTING PERFORMED AT [facility] [address] [place] [address] DIRECTOR CORPORATE SALES: JEFF ROCKWELL M.D. CLIA NUMBER [id number] [facility] [place]. [id number] VITAMIN D, 25 [id number] 06:21:28* Test Item Value Reference Range Interpretation Comme nts VITAMIN D, 25 [place] (test code = 4958) 17 NG/ML SEE BELOW L EFFECTIVE 2022, PLEASE NOTE NEW METHODOLOGY IS ELECTROCHEMILUMINESCENCE BINDING ASSAY. NOTE: 25-HYDROXYVITAMIN D ASSAY INCLUDES 25-HYDROXYVITAMIN D2 AND D3. INTERPRETIVE RANGES PEDIATRIC (<17 YEARS) . . . . . . . . . . . NG/ML 20-100ADULT: INSUFFICIENT . . . . . . . . . . . . . . NG/ML <20 SUBOPTIMAL . . . . . . . . . . . . . . . NG/ML 20-29 OPTIMAL . . . . . . . . . . . . . . . . . NG/ML 30-100 LIPID [id number] 06:19:43* Test Item Value Reference Range Interpretation Comme nts CHOLESTEROL (test code = 2210) 104 MG/DL <200 TRIGLYCERIDES (test code = 2232) 109 MG/DL <150 HDL CHOLESTEROL (test code = 2220) 56 MG/DL >39 CALC LDL CHOL (test code = 2237) 29 MG/DL <100 NOTE: CALCULATED LDL IS BASED ON CARINA-STOLL METHOD WHICHINCLUDES ADJUSTABLE TRIGLYCERIDE:VLDL CHOLESTEROL RATIO.THIS FACTOR VARIES BY MEASURED TRIGLYCERIDE AND NON-HDLCHOLESTEROL CONCENTRATIONS WITH INCREASED CALCULATED LDL SEENIN HIGHER TRIGLYCERIDE OR LOWER NON-HDL SPECIMENS. FOR MOREINFORMATION, SEE CLIENT ANNOUNCEMENT AT [email or web address] RISK RATIO LDL/HDL (test code = 2238) 0.52 RATIO <3.22 COMPREHENSIVE METABOLIC [id number] 06:19:43* Test Item Value Reference Range Interpretation Comme nts GLUCOSE (test code = 2217) 94 MG/DL 70-99 BUN (test code = 2208) 12 MG/DL 8-23 CREATININE (test code = 2214) 0.74 MG/DL 0.60-1.30 eGFR (2020 CKD-EPI) (test co de = 65418) 86 ML/MIN/1.73 >60 CALC BUN/CREAT (test code = 2235) 16 RATIO 6-28 SODIUM (test code = 2231) 142 MEQ/L 133-146 POTASSIUM (test code = 2228) 4.4 MEQ/L 3.5-5.4 CHLORIDE (test code = 2215) 105 MEQ/L 95-107 CARBON DIOXIDE (test code = 2205) 27 MEQ/L 19-31 CALCIUM (test code = 2208) 9.6 MG/DL 8.5-10.5 PROTEIN, TOTAL (test code = 2228) 7.8 G/DL 6.1-8.3 ALBUMIN (test code = 2200) 4.3 G/DL 3.5-5.2 CALC GLOBULIN (test code = 2239) 3.5 G/DL 1.9-3.7 CALC A/G RATIO (test code = 2233) 1.2 RATIO 1.0-2.6 BILIRUBIN, TOTAL (test code = 2206) 0.3 MG/DL <=1.2 ALKALINE PHOSPHATASE (test code = 2203) 109 U/L 40-142 AST (test code = 2217) 17 U/L 9-40 ALT (test code = 2218) 23 U/L 5-40 HEMOGLOBIN [id number] 04:06:54* Test Item Value Reference Range Interpretation Comme nts HEMOGLOBIN A1c (test code = 62033) 6.0 % 4.2-5.6 H STATELESS DIABETE S ASSOCIATION GUIDELINES FOR HGB A1C: PREDIABETES/INCREASED RISK . . . . . . . 5.7-6.4% DIAGNOSIS OF DIABETES . . . . . . . . . >=6.5% WITH CONFIRMATION OR APPROPRIATE SYMPTOMS NOTE: ASSAY MAY BE AFFECTED BY HEMOGLOBINOPATHIES (SICKLE CELL ANEMIA, S-C DISEASE, OTHERS) OR ARTIFICIALLY LOWERED BY DECREASED RED CELL SURVIVAL (HEMOLYTIC ANEMIAS, BLOOD LOSS, ETC.). CONSIDER ALTERNATE TESTING OR LABORATORY CONSULTATION. CBC W/AUTO DIFF WITH [id number] 02:50:58* Test Item Value Reference Range Interpretation Comme nts WBC (test code = 1001) 6.0 K/UL 3.5-11.0 RBC (test code = 1002) 4.84 M/UL 3.80-5.40 HEMOGLOBIN (test code = 1003) 13.0 G/DL 11.5-15.5 HEMATOCRIT (test code = 1004) 41.4 % 34.0-45.0 MCV (test code = 1005) 85.5 fL 80.0-99.0 MCH (test code = 1006) 26.9 PG 25.0-33.0 MCHC (test code = 1007) 31.4 G/DL 31.0-36.0 RDW (test code = 1038) 13.8 % 11.5-15.0 NEUTROPHILS (test code = 1008) 65.1 % LYMPHOCYTES (test code = 1010) 26.3 % MONOCYTES (test code = 1011) 7.1 % EOSINOPHILS (test code = 1012) 0.5 % BASOPHILS (test code = 1013) 0.3 % IMMATURE GRANULOCYTES (test code = 1036) 0.7 % NUCLEATED RBCS (test code = 1065) 0.0 /100 WBC'S See_Comment [Automated Embranea ge] The system which generated this result transmitted reference range: 0.0. The reference range was not used to interpret this result as normal/abnormal. PLATELET COUNT (test code = 1015) 232 K/UL 130-400 ABSOLUTE NEUTROPHILS (test code = 1066) 3.93 K/UL 1.50-7.50 ABSOLUTE LYMPHOCYTES (test code = 1067) 1.59 K/UL 1.00-4.00 ABSOLUTE MONOCYTES (test code = 1068) 0.43 K/UL 0.20-1.00 ABSOLUTE EOSINOPHILS (test code = 1040) 0.03 K/UL 0.00-0.50 ABSOLUTE BASOPHILS (test code = 1069) 0.02 K/UL 0.00-0.20 ABS IMMATURE GRANULOCYTES (test code = 1020) 0.04 K/UL 0.00-0.10 ABS NUCLEATED RBCS (test code = 13028) 0.00 K/UL 0.00-0.11 CULTURE, [id number] 13:02:33SPECIMEN NUMBER: [id number] CULTURE, URINE SPECIMEN NUMBER: [id number] SPECIMEN COMMENT: URINE SOURCE: URINE REPORT STATUS: FINAL ISOLATE NUMBER 1: ORGANISM: 01/16/2023 >100,000 CFU/ML GRAM NEGATIVE BACILLI IDENTIFICATION: 01/19/2023 ESCHERICHIA COLI E. COLI AMOXICILLIN/CA SENSITIVE <=8/4AMPICILLIN SENSITIVE <=8CEFAZOLIN SENSITIVE <=2CEFTRIAXONE SENSITIVE <=1CIPROFLOXACIN SENSITIVE <=1LEVOFLOXACIN SENSITIVE <=2NITROFURANTOIN SENSITIVE <=32PIP/TAZOBAC SENSITIVE <=16TETRACYCLINE RESISTANT >8TOBRAMYCIN SENSITIVE <=4TRIMETH/SULFA SENSITIVE <=2/38 NOTE: NUMBERS DISPLAYED REPRESENT MINIMUM INHIBITORY CONCENTRATION (JEFF) WHICH IS EXPRESSED IN MCG/ML. [facility] has important pathology staff changes effective 11/17/2022. New pathology staff will provide uninterrupted, excellent patient care and clinical consultation. See URL: [email or web address]. UNLESS OTHERWISE INDICATED, ALL TESTING PERFORMED AT [facility], [facility]. [address] [place] [address] DIRECTOR CORPORATE SALES: JEFF ROCKWELL M.D. CLIA NUMBER [id number] [place]. [id number], [id number] 13:54:04SPECIMEN NUMBER: [id number] CULTURE, URINE SPECIMEN NUMBER: [id number] SPECIMEN COMMENT: URINE SOURCE: URINE REPORT STATUS: FINAL ISOLATE NUMBER 1: ORGANISM: 07/02/2022 >100,000 CFU/ML GRAM NEGATIVEBACILLI IDENTIFICATION: 07/03/2022 ESCHERICHIA COLI E. COLI AMOXICILLIN/CA INTERMED 16/8AMPICILLIN RESISTANT >16CEFAZOLIN SENSITIVE 8CEFTRIAXONE SENSITIVE <=1CIPROFLOXACIN SENSITIVE <=1LEVOFLOXACIN SENSITIVE <=2NITROFURANTOIN SENSITIVE <=32PIP/TAZOBAC SENSITIVE <=16TETRACYCLINE RESISTANT >8TOBRAMYCIN SENSITIVE <=4TRIMETH/SULFA RESISTANT >2/38 NOTE: NUMBERS DISPLAYED REPRESENT MINIMUM INHIBITORY CONCENTRATION (JEFF) WHICH IS EXPRESSED IN MCG/ML. UNLESS OTHERWISE INDICATED, [facility]. [address] [place] [address] DIRECTOR CORPORATE SALES: LIZZY GREENWOOD M.D. CLIA NUMBER [id number] [place]. [id number], [id number] 11:37:05SPECIMEN NUMBER: [id number] CULTURE, URINE SPECIMEN NUMBER: [id number] SPECIMEN COMMENT: URINE SOURCE: URINE REPORT STATUS: FINAL ISOLATE NUMBER 1: ORGANISM: 04/30/2022 >100,000 CFU/ML GRAM NEGATIVE BACILLI IDENTIFICATION: 05/01/2022 ESCHERICHIA COLI E. COLI AMOXICILLIN/CA INTERMED 16/8AMPICILLIN RESISTANT >16CEFAZOLIN SENSITIVE <=2CEFTRIAXONE SENSITIVE <=1CIPROFLOXACINSENSITIVE <=1LEVOFLOXACIN SENSITIVE <=2NITROFURANTOIN SENSITIVE <=32PIP/TAZOBAC SENSITIVE <=16TETRACYCLINE RESISTANT >8TOBRAMYCIN SENSITIVE <=4TRIMETH/SULFA RESISTANT >2/38 NOTE:NUMBERS DISPLAYED REPRESENT MINIMUM INHIBITORY CONCENTRATION (JEFF) WHICH IS EXPRESSED IN MCG/ML. UNLESS OTHERWISE INDICATED, ALL [facility]ING PERFORMED [facility] [address] [place] [address] DIRECTOR CORPORATE SALES: LIZZY GREENWOOD M.D. CLIA NUMBER [id number] [facility] [place]. [id number] Function Panel (ALB, T.PRO, BILI T, BU/BC, ALT, AST, ALK PHOS)2020-10-10 23:54:00* Test Item Value Reference Range Interpretation Comme nts TOTAL BILI (test code = 1450998556) 0.5 mg/dL 0.1-1.1 BILI UNCON (test code = 5416858116) 0.4 mg/dL 0.1-1.1 BILI CONJ (test code = 4640011638) 0.0 mg/dL 0-0.3 T PROTEIN (test code = 2710563971) 8.3 g/dL 6.3-8.2 H ALBUMIN (test code = 0375863011) 4.5 g/dL 3.5-5 ALK PHOS (test code = 0968516893) 86 U/L 34-122 ALTv (test code = 1742-6) 17 U/L 5-35 AST(SGOT) (test code = 3180777233) 31 U/L 13-40 Lab Interpretation (test cod e = 28474-0) [facility]normal [facility] [id number] 23:54:00* Test Item Value Reference Range Interpretation Comme nts LIPASE (test code = 9152457412) 60 U/L 0-220 Lab Interpretation (test cod e = 87533-8) Normal [facility] Met[facility] (NA, K, CL, CO2, GLUCOSE, BUN, CREATININE, CA)2020-10-10 23:54:00* Test Item Value Reference Range Interpretation Comme nts NA (test code = 1081680082) 140 mmol/L 135-145 K (test code = 4741022392) 4.7 mmol/L 3.5-5 CL (test code = 8541305812) 104 mmol/L 98-108 CO2 TOTAL (test code = 4987403173) 28 mmol/L 23-31 AGAP (test code = 3155555164) 2-16 BUN (test code = 6898363117) 17 mg/dL 7-23 GLUCOSE (test code = 6749645300) 92 mg/dL 70-110 CREATININE (test code = 3212098918) 0.81 mg/dL 0.5-1.04 CALCIUM (test code = 8645969070) 9.3 mg/dL 8.6-10.6 eGFR Calculation (Non-) (test code = 9621424659) mL/min/1.73m2 eGFR Calculation () (test code = 7860275135) mL/min/1.73m2 JOHN (test code = JOHN) Association of [...] or urine or abnormalities in imaging tests). [facility] 23:41:00* Test Item Value Reference Range Interpretation Comme nts APPEARANCE (test code = 5048970102) Hazy Clear A COLOR (test code = 5925088433) Yellow Yellow PH (test code = 1236562115) 4.8-8.0 SP GRAVITY (test code = 8949053129) 1.003-1.030 GLU U QUAL (test code = 1371640769) Normal Normal BLOOD (test code = 7890284872) Negative Negative INTERFERENCE FRO M ASCORBIC ACID MAY CAUSE FALSE NEGATIVE RESULT KETONES (test code = 6224293157) Negative Negative PROTEIN (test code = 2887-8) Negative Negative UROBILIN (test code = 1369243683) Normal Normal BILIRUBIN (test code = 9048609740) Negative Negative NITRITE (test code = 5935827059) Negative Negative LEUK NESS (test code = 8492402699) 250/uL Negative A RBC/HPF (test code = 2704186271) See_Comment [Automated [employer]] The system which generated this result transmitted reference range: 0 - 3 HPF. The reference range was not used to interpret this result as normal/abnormal. WBC/HPF (test code = 1531707363) See_Comment [Automated [employer]] The system which generated this result transmitted reference range: 0 - 5 HPF. The reference range was not used to interpret this result as normal/abnormal. BACTERIA (test code = 8331950689) Negative Negative MUCOUS (test code = 3740145406) Slight Negative LPF A SQ EPITH (test code = 7610188875) HPF Lab Interpretation (test code = 17487-2) [id number] 23:36:00* Test Item Value Reference Range Interpretation Comme nts WBC (test code = 6690-2) See_Comment [Automated [employer]] The system which generated this result transmitted reference range: 4.30 - 11.10 10*3/?L. The reference range was not used to interpret this result as normal/abnormal. RBC (test code = 789-8) See_Comment [Automated [employer]] The system which generated this result transmitted reference range: 3.93 - 5.25 10*6/?L. The reference range was not used to interpret this result as normal/abnormal. HGB (test code = 718-7) 13.3 g/dL 11.6-15 HCT (test code = 4544-3) 42.8 % 35.7-45.2 MCV (test code = 787-2) 88.2 fL 80.6-95.5 MCH (test code = 785-6) 27.4 pg 25.9-32.8 MCHC (test code = 786-4) 31.1 g/dL 31.6-35.1 L RDW-SD (test code = 81060-5) 46.5 fL 39-49.9 RDW-CV (test code = 788-0) 14.4 % 12-15.5 PLT (test code = 777-3) See_Comment [Automated messa ge] The system which generated this result transmitted reference range: 166 - 358 10*3/?L. The reference range was not used to interpret this result as normal/abnormal. MPV (test code = 33630-8) 9.5 fL 9.5-12.9 NRBC/100 WBC (test code = 9418005543) See_Comment [Automated [employer] ssage] The system which generated this result transmitted reference range: 0.0 - 10.0 /100 WBCs. The reference range was not used to interpret this result as normal/abnormal. NRBC x10^3 (test code = 5440565268) <0.01 See_Comment [Automated [employer]] The system which generated this result transmitted reference range: 10*3/?L. The reference range was not used to interpret this result as normal/abnormal. GRAN MAT (NEUT) % (test code = 770-8) 53.6 % IMM GRAN % (test code = 8921294830) 0.20 % LYMPH % (test code = 736-9) 36.6 % MONO % (test code = 5905-5) 8.6 % EOS % (test code = 713-8) 0.7 % BASO % (test code = 706-2) 0.3 % GRAN MAT x10^3(ANC) (test code = 0405173368) 3.16 10*3/uL 1.88-7.09 IMM GRAN x10^3 (test code = 1046696461) <0.03 0-0.06 LYMPH x10^3 (test code = 731-0) 2.16 10*3/uL 1.32-3.29 MONO x10^3 (test code = 742-7) 0.51 10*3/uL 0.33-0.92 EOS x10^3 (test code = 711-2) 0.04 10*3/uL 0.03-0.39 BASO x10^3 (test code = 704-7) <0.03 0.01-0.07 Lab Interpretation (test code = 95566-0) [facility] [id number] 23:05:431. ?Interval enlargement of cystic lesion within the medial segment 7 [id number]. Central fluid attenuation suggests a simple cyst. [...] Coronal and sagittalMPR images also generated. INTRAVENOUS CONTRASTADMINISTRATION: None. DOSE REPORT (Total DLP mGy*cm): 383. FINDINGS: Lower chest: Clear lung bases. Partially visualized AICD lead tipsterminating in the right ventricle and right atrium. ABDOMEN ANDPELVISLiver: Liver does not appear overtly cirrhotic. Medial segment 7 2.9 cmhypoattenuating lesionwith central fluid attenuation, previously 2.4 cm onCT from 2018. No other focal hepatic lesions identified. Normal hepaticsurface contour. Biliary Tract/GB: Status post cholecystectomy. Spleen: No splenomegaly. Subcentimeter splenule along the superior marginof the spleen. Pancreas: No pancreatic ductal dilatation. Adrenals: 1.0 cm left adrenal nodule with attenuation consistent withbenign lipidrich adenoma (4-6 Hounsfield units). Kidneys: There are 4-5 bilateral punctate nonobstructive calculi. Nohydronephrosis or contour deforming renal mass. Overall appearance issimilar to prior exam. Nohydroureter. Bowel: Tiny sliding-type hiatal hernia with mild distal esophagealthickening. Mild pancolonic diverticulosis without diverticulitis. Normalappendix. Small bowel appears unremarkable. No abnormal bowel dilatation orwall thickening. Peritoneum: No pneumoperitoneum or free fluid. Vasculature: Mild atherosclerotic calcifications in the infrarenalabdominal aorta. Lymph Nodes: No lymphadenopathy. ? Pelvic Organs: Left ovarian 1.7 cm cystic lesion with central fluid attenuation. Right ovary is not well distinguished from [...] issimilar to prior exam. No hydroureter.Bowel: Tiny sliding- type hiatal hernia with mild distal esophagealthickening. Mild [...] bladder is decompressed. No urinarybladder calculi.Abdominal/Pelvic Wall: Redemonstrationof scarring within the theinfraumbilical ventral abdominal wall, [...] joint erosion(4:65). No aggressive feature identified.IMPRESSION1. Interval enlargemen t of cystic lesion within the medial segment 7 [id number]. Central fluid attenuation suggests a simple cyst. Considerconfirmation with multiphasic CT or MRI given interval growth. 2. Status post cholecystectomy.3. Punctate bilateral nonobstructive nephrolithiasis.4. Left adrenal benign adenoma.5. Left ovarian 1.7 cm cyst. Attention on follow-up in 6 weeks.6. Scarring in the ventral abdominal wall and small fat-containingumbilical hernia.[facility] [id number] 05:48:00* Test Item Value Reference Range Interpretation Comme nts TROPONIN I (test code = 0666203665) 0.029 ng/mL See_Comment [Automated message] The system which generated this result transmitted reference range: <=0.034. The reference range was not used to interpret this result as normal/abnormal. JOHN (test code = JOHN) Equal or Less than 0.034 ng/ml---Normal ?Note: Cardiac troponin begins to [...] patient's use of biotin. ? Lab Interpretation (test code = 13978-4) Normal [facility] 1 [id number] 05:11:31No acute cardiopulmonary abnormality. Preliminary Report Dictated by Resident: Phi Salazar MD., have reviewed this study and agree withthe above report.EXAM: XR CHEST 1 VWCLINICAL INDICATION: cough, wheezing COMPARISON: None FINDINGS: Left chest wall cardiac pacer tips terminate in the right ventricle andright atrium. The lungs are well-expanded and clear without focal consolidation, pleuraleffusion, or pneumothorax. The cardiac silhouette is normal in size. The aortic knob is calcified. No acute osseous abnormality. [facility], Radiant Results Inft User - 05/16/2020 12:12 AM CDTEXAM: XR CHEST 1 VWCLINICAL INDICATION: cough, wheezing COMPARISON: NoneFINDINGS:Left chest wall cardiac pacer tips terminate in the right ventricle andright atrium.The lungs are well-expanded and clear without focal consolidation, pleuraleffusion, or pneumothorax.The cardiac silhouette isnormal in size. The aortic knob is calcified.No acute osseous abnormality. IMPRESSIONNo acute cardiopulmonary abnormality.Preliminary Report Dictated by Resident: Shane Llanes, Prudencio Silverio MD., have reviewed this study and agree withthe above report. [facility]. METABOLIC PANEL ([id number])2020-05-16 05:05:00* Test Item Value Reference Range Interpretation Comme nts NA (test code = 3301234001) 140 mmol/L 135-145 K (test code = 4443421010) 4.6 mmol/L 3.5-5 CL (test code = 3073596770) 108 mmol/L 98-108 CO2 TOTAL (test code = 2354837343) 29 mmol/L 23-31 AGAP (test code = 1471039544) 2-16 BUN (test code = 1661229447) 18 mg/dL 7-23 GLUCOSE (test code = 6435429519) 108 mg/dL 70-110 CREATININE (test code = 9231718461) 0.92 mg/dL 0.5-1.04 TOTAL BILI (test code = 0362913398) 0.4 mg/dL 0.1-1.1 CALCIUM (test code = 6303594540) 9.3 mg/dL 8.6-10.6 T PROTEIN (test code = 9466348885) 8.1 g/dL 6.3-8.2 ALBUMIN (test code = 6309364136) 4.2 g/dL 3.5-5 ALK PHOS (test code = 3622624821) 71 U/L 34-122 ALTv (test code = 1742-6) 20 U/L 5-35 AST(SGOT) (test code = 5180342074) 50 U/L 13-40 H eGFR Calculation (Non-) (test code = 5236715322) mL/min/1.73m2 eGFR Calculation () (test code = 2341761673) mL/min/1.73m2 JOHN (test code = JOHN) Association of [...] or abnormalities in imaging tests). Lab Interpretation (test code = 66365-0) [facility]normal [facility] 05:04:00* Test Item Value Reference Range Interpretation Comme nts LIPASE (test code = 9543316977) 48 U/L 0-220 Lab Interpretation (test cod e = 16326-2) Normal [facility]ID NOW RAPID TESTING)2020-05-16 05:01:00* Test Item Value Reference Range Interpretation Comme nts SARS-CoV-2 Rapid ID NOW (test code = 17725-3) Not Detected Not Detected JOHN (test code = JOHN) ID NOW COVID-19 As say is an isothermal nucleic acid amplification test intended for the qualitative detection of nucleic acid from SARS-CoV-2 viral RNA in nasopharyngeal (DISPATCH SPECIALIST) specimens. It is used under Emergency Use [...] patient testing if clinically indicated. Lab Interpretation (test code = 18426-5) Normal [facility] WITH [id number] 04:46:00* Test Item Value Reference Range Interpretation Comme nts WBC (test code = 6690-2) See_Comment [Automated Embranea ge] The system which generated this result transmitted reference range: 4.30 - 11.10 10*3/?L. The reference range was not used to interpret this result as normal/abnormal. RBC (test code = 789-8) See_Comment [Automated Embranea ge] The system which generated this result transmitted reference range: 3.93 - 5.25 10*6/?L. The reference range was not used to interpret this result as normal/abnormal. HGB (test code = 718-7) 13.0 g/dL 11.6-15 HCT (test code = 4544-3) 41.7 % 35.7-45.2 MCV (test code = 787-2) 88.2 fL 80.6-95.5 MCH (test code = 785-6) 27.5 pg 25.9-32.8 MCHC (test code = 786-4) 31.2 g/dL 31.6-35.1 L RDW-SD (test code = 82360-8) 49.1 fL 39-49.9 RDW-CV (test code = 788-0) 15.1 % 12-15.5 PLT (test code = 777-3) See_Comment [Automated Embranea ge] The system which generated this result transmitted reference range: 166 - 358 10*3/?L. The reference range was not used to interpret this result as normal/abnormal. MPV (test code = 69409-7) 9.8 fL 9.5-12.9 NRBC/100 WBC (test code = 9342269006) See_Comment [Automated [employer] ssage] The system which generated this result transmitted reference range: 0.0 - 10.0 /100 WBCs. The reference range was not used to interpret this result as normal/abnormal. NRBC x10^3 (test code = 2706089488) <0.01 See_Comment [Automated messa ge] The system which generated this result transmitted reference range: 10*3/?L. The reference range was not used to interpret this result as normal/abnormal. GRAN MAT (NEUT) % (test code = 770-8) 50.8 % IMM GRAN % (test code = 3726373570) 0.40 % LYMPH % (test code = 736-9) 39.1 % MONO % (test code = 5905-5) 7.7 % EOS % (test code = 713-8) 1.6 % BASO % (test code = 706-2) 0.4 % GRAN MAT x10^3(ANC) (test code = 7621180594) 2.90 10*3/uL 1.88-7.09 IMM GRAN x10^3 (test code = 3982929154) <0.03 0-0.06 LYMPH x10^3 (test code = 731-0) 2.23 10*3/uL 1.32-3.29 MONO x10^3 (test code = 742-7) 0.44 10*3/uL 0.33-0.92 EOS x10^3 (test code = 711-2) 0.09 10*3/uL 0.03-0.39 BASO x10^3 (test code = 704-7) <0.03 0.01-0.07 Lab Interpretation (test code = 85940-6) [facility]normal [facility] 03:37:00* Test Item Value Reference Range Interpretation Comme nts APPEARANCE (test code = 8384724972) Clear Clear COLOR (test code = 7477354748) Yellow Yellow PH (test code = 6357991912) 4.8-8.0 SP GRAVITY (test code = 7963731993) 1.003-1.030 GLU U QUAL (test code = 6938837004) Normal Normal BLOOD (test code = 6028019596) Negative Negative INTERFERENCE FRO M ASCORBIC ACID MAY CAUSE FALSE NEGATIVE RESULT KETONES (test code = 7129973797) Negative Negative PROTEIN (test code = 2887-8) Negative Negative UROBILIN (test code = 1031568523) Normal Normal BILIRUBIN (test code = 4603311906) Negative Negative NITRITE (test code = 4778809109) Negative Negative LEUK NESS (test code = 6526647434) Negative Negative RBC/HPF (test code = 8988240979) See_Comment [Automated Embranea ge] The system which generated this result transmitted reference range: 0 - 3 HPF. The reference range was not used to interpret this result as normal/abnormal. WBC/HPF (test code = 5192990720) See_Comment [Automated Embranea ge] The system which generated this result transmitted reference range: 0 - 5 HPF. The reference range was not used to interpret this result as normal/abnormal. BACTERIA (test code = 6146256317) Few Negative A MUCOUS (test code = 0941363479) Slight Negative LPF A SQ EPITH (test code = 4356125200) HPF Lab Interpretation (test code = 40118-8) Abnormal [facility]"
[2024-08-27] MEDS ORDERED: ACETAMINOPHEN 500 MG TAB ONE (05:50)
[2024-08-27] MEDS ORDERED: methocarbamoL 500 MG TAB ONE (05:50)
[2024-08-27] MEDS ORDERED: LIDOCAINE 4% PATCH ONE (05:51)
--- NOTE | 2024-08-27 06:00 | RAD REPORT ---
EXAM DESCRIPTION: Chest Single View CLINICAL HISTORY: GLF COMPARISON: Chest x-ray 07/31/2023 TECHNIQUE: Single AP view of the chest. FINDINGS: Left-sided cardiac conduction device noted. Lung volumes adequate. Cardiac silhouette is normal in size. Thoracic aortic atherosclerosis. No pneumothorax. No large pleural effusion. No focal consolidation. No acute bony finding. IMPRESSION: No acute cardiopulmonary findings. Electronically signed by: Tip Garsia MD 08/27/2024 05:51 AM [facility] Z9 Due to temporary technical issues with the PACS/[employer] reporting system, reports are being dionna d by the in-house radiologist without review as a courtesy to ensure prompt reporting the interpreting radiologist is fully responsible for the content of the report. Transcribed Date/Time: 08/27/2024 6:00 AM
--- NOTE | 2024-08-27 06:27 | RAD REPORT ---
PROCEDURE: CT HEAD AND CERVICAL SPINE WITHOUT CONTRAST INDICATION: GLF. COMPARISON: None TECHNIQUE: CT images of brain and cervical spine were obtained without contrast. Multiplanar reformat s were provided. Dose lowering technique(s) such as automated exposure control, iterative reconstruction, mA and/or KV adjustment for patient's size was utilized for this examination. FINDINGS: CT HEAD: PARENCHYMA: No acute arterial territory infarct. No acute intracranial hemorrhage. No mass effect or midline shift. VENTRICLES: Normal in size for patient's age. EXTRA-AXIAL: Empty sella. No focal collection. Patent basilar cisterns. ORBITS: Unremarkable. BONES: No acute finding. PARANASAL SINUSES/MASTOIDS/MIDDLE EARS: Clear. SOFT TISSUES: No acute findings. OTHER: None. CT CERVICAL SPINE: ALIGNMENT: Normal lordosis of the cervical spine. BONES: No acute fractures. No compression deformity. No spondylolisthesis. SPONDYLOSIS: Mild multilevel degenerative changes of the spine with disc space narrowing, marginal os teophytosis, and uncovertebral hypertrophy. POSTERIOR FOSSA: Unremarkable. SOFT TISSUES: Unremarkable. LUNG APICES: Clear. OTHER: None. IMPRESSION: 1. No acute intracranial abnormality. 2. No finding in CT cervical spine. 3. Empty sella. Electronically signed by: Elvira Joel MD 08/27/2024 06:20 AM [facility] Due to temporary technical issues with the PACS/[employer] reporting system, reports are being dionna d by the in-house radiologist without review as a courtesy to ensure prompt reporting the interpreting radiologist is fully responsible for the content of the report. Transcribed Date/Time: 08/27/2024 6:27 AM
--- NOTE | 2024-08-27 06:45 | RAD REPORT ---
CLINICAL HISTORY: GLF. COMPARISON: None. TECHNIQUE: XR PELVIS 1-2 VIEWS 08/27/2024 4:15 AM ENVIRONMENTAL COMPLIANCE SPECIALIST FINDINGS: There is no fracture. Joint spaces are preserved. Soft tissues are unremarkable. IMPRESSION: No acute osseous findings. Electronically signed by: Rigoberto Hassan MD 08/27/2024 06:41 AM ENVIRONMENTAL COMPLIANCE SPECIALIST RP Due to temporary technical issues with the PACS/[employer] reporting system, reports are being dionna d by the in-house radiologist without review as a courtesy to ensure prompt reporting the interpreting radiologist is fully responsible for the content of the report. Transcribed Date/Time: 08/27/2024 6:45 AM
--- NOTE | 2024-08-27 06:51 | ER ---
Nurse's Notes [facility] Name: Shelia Valentine Age: 73 yrs Sex: Female : 1950 Arrival Date: 08/27/2024 Time: 00:53 Bed 9 Private MD: Diagnosis: Pain in right hip;Pain in right shoulder;Sprain of joints and ligaments of unspecified parts of neck Presentation: 08/27 01:44 Chief complaint: Patient states: Fell of the bed. C/o right shoulder pain and lower vc1 back pain. Able to move right arm. Having neck pain after falling. Care prior to arrival: None. Mechanism of Injury: Fall out of bed. 01:44 Acuity: ADDI 3 vc1 :44 Method Of Arrival: EMS: [facility] vc1 01:44 Coronavirus screen: Client denies travel out of the [place] in the last 14 days. At this vc1 time, the client does not indicate any symptoms associated with coronavirus-19. Ebola Screen: Patient negative for fever greater than or equal to 101.5 degrees Fahrenheit, and additional compatible Ebola Virus Disease symptoms Patient denies exposure to infectious person. Patient denies travel to an Ebola-affected area in the 21 days before illness onset. No symptoms or risks identified at this time. Initial Sepsis Screen: Does the patient meet any 2 criteria? No. Patient's initial sepsis screen is negative. Does the patient have a suspected source of infection? No. Patient's initial sepsis screen is negative. Risk Assessment: Do you want to hurt yourself or someone else? Patient reports no desire to harm self or others. Onset of symptoms was August 27, 2024. Triage Assessment: 02:00 General: Appears in no apparent distress. Behavior is calm, cooperative, appropriate vc1 for age. Screenin:28 [facility] ED Fall Risk Assessment (Adult) History of falling in the last 3 months, vc1 including since admission Yes- physiologic fall (2 pts) Confusion or Disorientation No (0 pts) Intoxicated or Sedated No (0 pts) Impaired Gait No (0 pts) Mobility Assist Device Used No (0 pt) Altered Elimination No (0 pt) Score/Fall Risk Level 0 - 2 = Low Risk Oriented to surroundings, Maintained a safe environment, Educated pt \T\ family on fall prevention, incl call for assistance when getting out of bed. Abuse screen: Denies threats or abuse. Nutritional screening: No deficits noted. Tuberculosis screening: No symptoms or risk factors identified. Vital Signs: 01:47 BP 161 / 89; Pulse 73; Resp 18; Temp 98.2; Pulse Ox 96% ; Height 5 ft. 5 in. ; Pain vc1 02/26; 07:40 BP 148 / 84; Pulse 70; Resp 16; Pulse Ox 97% ; vc1 01:47 Pain Scale: Adult vc1 ED Course: 00:54 Patient arrived in ED. jj6 01:47 Triage completed. vc1 04:05 Brown Harper MD is Attending Physician. ec2 04:54 CXR XRAY In Process Unspecified. EDMS 04:54 Pelvis XRAY In Process Unspecified. EDMS 05:12 CT Head C Spine In Process Unspecified. EDMS 05:29 Arm band placed on. vc1 07:38 No provider procedures requiring assistance completed. Patient did not have IV access vc1 during this emergency room visit. Administered Medications: 05:45 Drug: Acetaminophen PO 1000 mg PO once Route: PO; bm8 06:47 Follow up: Response: No adverse reaction bm8 05:45 Drug: Methocarbamol PO 500 mg PO once Route: PO; bm8 06:47 Follow up: Response: No adverse reaction bm8 05:45 Drug: Lidoderm Topical Patch 5 % (700 mg/patch) 1 patches Topical once; leave on for 12 bm8 hours; cover most painful area; may cut into smaller pieces Route: Topical; Site: affected area; 06:47 Follow up: Response: No adverse reaction bm8 Medication: 07:40 VIS not applicable for this client. vc1 Outcome: 06:50 Discharge ordered by . ec2 07:38 Discharged to home ambulatory, vc1 07:38 Condition: good 07:38 Discharge instructions given to patient, Instructed on discharge instructions, follow up and referral plans. medication usage, Demonstrated understanding of instructions, follow-up care, medications, Prescriptions given X 1, 07:40 Patient left the ED. vc1 Signatures: Dispatcher [employer] EDMS Francis Gladys jj6 Amanda Menchaca RN RN vc1 Brown Harper MD MD ec2 Renato Ryan RN RN bm8 Corrections: (The following items were deleted from the chart) 06:47 06:46 Lidoderm Topical Patch 5 % (700 mg/patch) 1 patches Topical in affected area bm8 bm8
--- NOTE | 2024-08-27 06:51 | EDPHYS ---
Physician Documentation [facility] Name: Shelia Valentine Age: 73 yrs Sex: Female : 1950 Arrival Date: 08/27/2024 Time: 00:53 Bed 9 Private MD: ED Physician Brown Harper HPI: 08/27 04:15 This 73 yrs old Female presents to ER via EMS with complaints of fall Injury. ec2 04:16 Patient arrives today for evaluation after a fall. Patient reports she was attempting ec2 to get out of bed and subsequently fell. Complained of neck pain, hip pain, right shoulder pain.. ROS: 04:16 Constitutional: as per hpi ec2 Exam: 04:16 Constitutional: GEN: No acute distress HEENT: -Head: no deformities -Eyes: EOMI CV: ec2 regular rate LUNGS: no respiratory distress ABD: non-tender SKIN: no wounds appreciated MSK: No C/T/L spine deformities RUE proximal right shoulder TTP without deformities. LUE w/o bony deformity RLE w/o bony deformity LLE w/o bony deformity NEURO: moves all extremities equally, GCS 15 (E4, V5, M6) Vital Signs: 01:47 BP 161 / 89; Pulse 73; Resp 18; Temp 98.2; Pulse Ox 96% ; Height 5 ft. 5 in. ; Pain vc1 6/10; 07:40 BP 148 / 84; Pulse 70; Resp 16; Pulse Ox 97% ; vc1 01:47 Pain Scale: Adult vc1 MDM: 04:05 Medical Screening Exam initiated ec2 06:49 Data reviewed: vital signs, nurses notes. ec2 06:50 ED course: Imaging negative. Will discharge home. Return precautions given.. ec2 08/27 04:15 Order name: CT Head C Spine ec2 08/27 04:15 Order name: CXR XRAY ec2 08/27 04:15 Order name: Pelvis XRAY ec2 Administered Medications: 05:45 Drug: Acetaminophen PO 1000 mg PO once Route: PO; bm8 06:47 Follow up: Response: No adverse reaction bm8 05:45 Drug: Methocarbamol PO 500 mg PO once Route: PO; bm8 06:47 Follow up: Response: No adverse reaction bm8 05:45 Drug: Lidoderm Topical Patch 5 % (700 mg/patch) 1 patches Topical once; leave on for 12 bm8 hours; cover most painful area; may cut into smaller pieces Route: Topical; Site: affected area; 06:47 Follow up: Response: No adverse reaction bm8 Disposition Summary: 08/27/24 06:50 Discharge Ordered Notes: Location: Home ec2 Condition: Stable ec2 Diagnosis - Pain in right hip ec2 - Pain in right shoulder ec2 - Sprain of joints and ligaments of unspecified parts of neck ec2 Followup: ec2 - With: Private Physician - When: - Reason: Re-evaluation by your physician Discharge Instructions: - Discharge Summary Sheet ec2 - Hip Pain ec2 Forms: - Medication Reconciliation Form ec2 - Antibiotic Education ec2 - Prescription Opioid Use ec2 - Patient Portal Instructions ec2 - Leadership Thank You Letter ec2 Prescriptions: - methocarbamol 500 mg Oral tablet - take 1 tablet ORAL route 4 times per day; 15 tablet; Refills: 0, Product ec2 Selection Permitted Signatures: Dispatcher [employer] EDMS Brown Harper MD MD ec2 Renato Ryan RN RN bm8 Corrections: (The following items were deleted from the chart) 04:15 04:15 Pelvis+RAD.RAD.[email or web address] ordered. EDIL EDIL 06:50 04:15 This 73 yrs old Female presents to ER via EMS with complaints of Facial ec2 Injury. ec2
[2024-08-27 10:37] VITALS: TEMP 98.2
[2024-08-27 10:38] VITALS: BP 148/84; O2SAT 97
== END 2024-08-27 07:40 | disposition home or self-care (01) ==
LOC: ER 00:53
DX: S13.9XXA Sprain of joints and ligaments of unspecified parts of neck, initial encounter (principal); M25.551 Pain in right hip; M25.511 Pain in right shoulder; W06.XXXA Fall from bed, initial encounter
CPT/HCPCS: 70450; 72125; 71045; 72170; 99283; J2003

== ENCOUNTER 2024-10-11 07:52 | Inpatient (IN) | payer OTHER ==
--- OUTSIDE RECORDS SUMMARY | 2024-10-11 07:55 | XMS REPORT | Continuity of Care Document ---
Author Name Unknown Address [address] [place] [address] [facility] Address [address] [place] [address] Care Team Providers Care Senior Project Architect Name Role Phone GABRIEL DORMAN Primary Care Physician UnavailJOSE ANGEL Giron Attending Clinician Unavailable Stevenson Love PTA Attending Clinician Kerri Hernandez MD Attending Clinician [phone] Doctor Unassigned, [place] Attending Clinician Ki Choudhury Attending Clinician [phone] KERRI PINA Attending Clinician KERRI Metzger Attending Clinician Anabela Park PTA Attending Clinician Unavail Yaneth Purcell PTA Attending Clinician Lucille Malik PTA Attending Clinician Unavail Romie Michaud MD Attending Clinician [phone] ROMIE ARRIAGA Attending Clinician Unavaila ROMIE Coreas Attending Clinician Unavaila shae Medina PT, Veronica Attending Clinician Unavailosmar Dominguez PT, Bel Ballrad Attending Clinician Unavailab le 1, [facility] Attending Clinician Unavail able Raj OT, Lucille Servin Attending Clinician Unavail able Anthony Bartlett PT, Chelita Attending Clinician Un available GIULIA GROSS Attending Clinician Unavailab SHREYAS Cameron Attending Clinician Unavailable CORNELIUS ROSE Attending Clinician Unavailable Darrick MCMULLENP, Anabela Attending Clinician Niecy PAC, Margaret S Attending Clinician [phone] GIULIA GROSS Admitting Clinician Unavailab shanelle Payers Payer Name Policy Type Policy Number Effective Date Expirati on Date Source [facility] [employer] [id number] 2021 00:00:00 [place] [id number] 2018 00:00:00 WELLMED/[employer] MEDICARE ADVANTAGE [id number] 2019 00:00:00 MEDICARE PART A \\T\\ B [id number] 2015 00:00:00 Problems Condition Name Condition Details Condition Category Status Onset Date Resolution Date Last Treatment Date Treating Clinician Comments Source At risk for falls At risk for falls Disease Active 2022-09 00:00: 00 [facility] Unspecifie d abnormalit ies of gait and mobility Unspecifie d abnormalit ies of gait and mobility Disease Active 2022-09 00:00: 00 [facility] No known active problems No known active problems Disease [facility] Allergies, Adverse Reactions, Alerts Allergy Name Allergy Type Status Severity Reaction(s) Onset Date Inactive Date Treating Clinician Comments Source ONDANSET TEDDY HCL (PF) DRUG Active ITCHING 2017-09 00:00: 00 [facility] Ondanset teddy Hcl (Pf) Propensi ty to adverse reaction s Active Itching 2017-09 00:00: 00 Reaction occurred in the ER. [facility] CEPHALEX IN DRUG INGREDI Active NAUSEA ONLY 2006-09 00:00: 00 [facility] DOXYCYCL INE DRUG INGREDI Active NAUSEA ONLY 2006-09 00:00: [facility] FAMOTIDI NE DRUG INGREDI Active NAUSEA ONLY 2006-09 00:00: 00 [facility] HYDROXYZ INE DRUG INGREDI Active NAUSEA ONLY 2006-09 00:00: 00 [facility] IBUPROFE N DRUG INGREDI Active NAUSEA ONLY 2006-09 00:00: 00 [facility] SULFA (SULFONA MIDE ANTIBIOT ICS) Drug Class Active NAUSEA ONLY 2006-09 00:00: 00 [facility] Sulfa (Sulfona mide Antibiot ics) Propensi ty to adverse reaction s Active Nausea Only 2006-09 00:00: 00 [facility] Cephalex in Propensi ty to adverse reaction s Active Nausea Only 2006-09 00:00: 00 [facility] Doxycycl ine Propensi ty to adverse reaction s Active Nausea Only 2006-09 00:00: 00 [facility] Famotidi ne Propensi ty to adverse reaction s Active Nausea Only 2006-09 00:00: 00 [facility] Hydroxyz ine Propensi ty to adverse reaction s Active Nausea Only 2006-09 00:00: 00 [facility] Ibuprofe n Propensi ty to adverse reaction s Active Nausea Only 2006-09 00:00: 00 [facility] Sulfa (Sulfona mide Antibiot ics) Propensi ty to adverse reaction s Active Nausea Only 2006-09 00:00: 00 [facility] Social History Social Habit Start Date Stop Date Quantity Comments Source Gender identity [facility] of tobacco use Current smoker [facility] History of Social function 2023-08-10 00:00:00 2023-08-10 00:00:00 [facility] Alcohol intake 2023-08-10 00:00:00 2023-08-10 00:00:00 0 /d [facility] Exposure to SARS-CoV-2 (event) 2023-01-23 00:00:00 2023-02-02 09:11:00 Not sure [facility] Tobacco use and exposure 2020-10-10 00:00:00 2020-10-10 00:00:00 Never used [facility] Sex Assigned At 1950 00:00:00 1950 00:00:00 [facility] Smoking Status Start Date Stop Date Source Ex-smoker 2020-10-10 00:00:00 2020-10-10 00:00:00 [facility] Medications Ordered Medication Name Filled Medication Name Start Date Stop Date Current Medication? Ordering Clinician Indication Dosage Frequency Signature (SIG) Comments Components Source ketorolac (TORADOL) injection 15 mg 10-10 23:00: 00 10-10 23:19 :00 No 15mg 15 mg, Slow IV Push, ONCE, 1 dose, 10/10/20 at 1700, PAUL
Fa culty member approving Restricted medication : EMERGENCY ROOM, [facility] methocarbam oL (ROBAXIN) tablet 500 mg 10-10 23:00: 00 10-10 23:03 :00 No 500mg 500 mg, Oral, ONCE NOW, 1 dose, 10/10/20 at 1700, PAUL [facility] methocarbam oL 750 mg tablet 10-10 00:00: 00 Yes [id number] 750mg Take 1 tablet by mouth 3 (three) times daily as needed (muscle pain). [facility] albuterol (VENTOLIN) inhaler 2 Puff 05-16 07:15: 00 05-16 06:12 :00 No 2{puff} 2 Puff, Inhalation , ONCE, 1 dose, Tue05/16/20 at 0215, PAUL
Is this order for a patient with suspected or confirmed COVID-19 infection? No
Does this order have Pulmonary/ Critical Care approval? Yes [facility] cloNIDine (CATAPRES) tablet 0.1 mg 05-16 06:00: 00 05-16 05:13 :00 No .1mg 0.1 mg, Oral, ONCE, 1 dose, Tue05/16/20 at 0100, STAT [facility] albuterol 90 mcg/actuati on inhaler 05-16 00:00: 00 Yes [id number] 2{puff} Inhale 2 Puffs every 4 (four) hours as needed for Wheezing or Shortness of Breath. [facility] dicyclomine (BENTYL) 10 mg capsule 2017-09 00:00: 00 Yes 10mg Take 1 capsule by mouth 4 (four) times daily. [facility] traMADOL 50 mg tablet 2017-09 00:00: 00 Yes 50mg Take 1 tablet by mouth every 6 (six) hours as needed for Pain (scale 4-6). [facility] proMETHazin e (PHENERGAN) 25 mg suppository 04-01 00:00: 00 Yes 25mg Insert 1 Suppositor y into rectum every 6 (six) hours as needed for Nausea and Vomiting (N/V). [facility] fluticasone (FLONASE) 50 mcg/actuati on nasal spray 2015-09 15:14: 28 Yes 1{spray } Use 1 [place] in each nostril daily. Indication s: 1 [place] each Nostril BID [facility] traZODONE (DESYREL) 50 mg tablet 2015-09 15:14: 28 Yes 50mg Take 50 mg by mouth at bedtime. [facility] omeprazole (PRILOSEC) 40 mg capsule 2015-09 15:14: 27 Yes 40mg Take 40 mg by mouth daily. [facility] fluticasone (FLONASE) 50 mcg/actuati on nasal spray 2015-09 10:14: 28 Yes 1{spray } Use 1 [place] in each nostril daily. Indication s: 1 [place] each Nostril BID [facility] traZODONE (DESYREL) 50 mg tablet 2015-09 10:14: 28 Yes 50mg Take 50 mg by mouth at bedtime. [facility] omeprazole (PRILOSEC) 40 mg capsule 2015-09 10:14: 27 Yes 40mg Take 40 mg by mouth daily. [facility] lisinopril (PRINIVIL,Z ESTRIL) 20 mg tablet 2015-09 00:00: 00 Yes 20mg Take 1 tablet by mouth 2 (two) times daily. [facility] Immunizations Ordered Immunization Name Filled Immunization Name Date Status Comments Source SARS-COV-2 COVID-19 PFIZER VACCINE 2021-02-07 00:00:00 Completed [facility] SARS-COV-2 COVID-19 PFIZER VACCINE 2021-02-07 00:00:00 Completed [facility] SARS-COV-2 COVID-19 PFIZER VACCINE 2021-02-07 00:00:00 Completed [facility] SARS-COV-2 COVID-19 PFIZER VACCINE 2021-02-07 00:00:00 Completed [facility] SARS-COV-2 COVID-19 PFIZER VACCINE 2021-02-07 00:00:00 Completed [facility] SARS-COV-2 COVID-19 PFIZER VACCINE 2021-02-07 00:00:00 Completed [facility] SARS-COV-2 COVID-19 PFIZER VACCINE 2021-02-07 00:00:00 Completed [facility] SARS-COV-2 COVID-19 PFIZER VACCINE 2021-02-07 00:00:00 Completed [facility] SARS-COV-2 COVID-19 PFIZER VACCINE 2021-02-07 00:00:00 Completed [facility] SARS-COV-2 COVID-19 PFIZER VACCINE 2021-02-07 00:00:00 Completed [facility] SARS-COV-2 COVID-19 PFIZER VACCINE 2021-02-07 00:00:00 Completed [facility] SARS-COV-2 COVID-19 PFIZER VACCINE 2021-02-07 00:00:00 Completed [facility] SARS-COV-2 COVID-19 PFIZER VACCINE 2021-02-07 00:00:00 Completed [facility] SARS-COV-2 COVID-19 PFIZER VACCINE 2021-02-07 00:00:00 Completed [facility] SARS-COV-2 COVID-19 PFIZER VACCINE 2021-02-07 00:00:00 Completed [facility] SARS-COV-2 COVID-19 PFIZER VACCINE 2021-02-07 00:00:00 Completed [facility] SARS-COV-2 COVID-19 PFIZER VACCINE 2021-02-07 00:00:00 Completed [facility] SARS-COV-2 COVID-19 PFIZER VACCINE 2021-02-07 00:00:00 Completed [facility] SARS-COV-2 COVID-19 PFIZER VACCINE 2021-02-07 00:00:00 Completed [facility] SARS-COV-2 COVID-19 PFIZER VACCINE 2021-02-07 00:00:00 Completed [facility] SARS-COV-2 COVID-19 PFIZER VACCINE 2021-02-07 00:00:00 Completed [facility] SARS-COV-2 COVID-19 PFIZER VACCINE 2021-02-07 00:00:00 Completed [facility] SARS-COV-2 COVID-19 PFIZER VACCINE 2021-02-07 00:00:00 Completed [facility] SARS-COV-2 COVID-19 PFIZER VACCINE 2021-02-07 00:00:00 Completed [facility] SARS-COV-2 COVID-19 PFIZER VACCINE 2021-02-07 00:00:00 Completed [facility] SARS-COV-2 COVID-19 PFIZER VACCINE 2021-02-07 00:00:00 Completed [facility] SARS-COV-2 COVID-19 PFIZER VACCINE 2021-02-07 00:00:00 Completed [facility] SARS-COV-2 COVID-19 PFIZER VACCINE 2021-02-07 00:00:00 Completed [facility] SARS-COV-2 COVID-19 PFIZER VACCINE 2021-02-07 00:00:00 Completed [facility] SARS-COV-2 COVID-19 PFIZER VACCINE 2021-02-07 00:00:00 Completed [facility] SARS-COV-2 COVID-19 PFIZER VACCINE 2021-02-07 00:00:00 Completed [facility] SARS-COV-2 COVID-19 PFIZER VACCINE 2021-02-07 00:00:00 Completed [facility] SARS-COV-2 COVID-19 PFIZER VACCINE 2021-02-07 00:00:00 Completed [facility] SARS-COV-2 COVID-19 PFIZER VACCINE 2021-02-07 00:00:00 Completed [facility] SARS-COV-2 COVID-19 PFIZER VACCINE 2021-02-07 00:00:00 Completed [facility] SARS-COV-2 COVID-19 PFIZER VACCINE 2021-02-07 00:00:00 Completed [facility] SARS-COV-2 COVID-19 PFIZER VACCINE 2021-02-07 00:00:00 Completed [facility] SARS-COV-2 COVID-19 PFIZER VACCINE 2021-02-07 00:00:00 Completed [facility] SARS-COV-2 COVID-19 PFIZER VACCINE 2021-02-07 00:00:00 Completed [facility] SARS-COV-2 COVID-19 PFIZER VACCINE 2021-02-07 00:00:00 Completed [facility] SARS-COV-2 COVID-19 PFIZER VACCINE 2021-02-07 00:00:00 Completed [facility] SARS-COV-2 COVID-19 PFIZER VACCINE 2021-02-07 00:00:00 Completed [facility] SARS-COV-2 COVID-19 PFIZER VACCINE 2021-02-07 00:00:00 Completed [facility] SARS-COV-2 COVID-19 PFIZER VACCINE 2021-02-07 00:00:00 Completed [facility] SARS-COV-2 COVID-19 PFIZER VACCINE 2021-02-07 00:00:00 Completed [facility] SARS-COV-2 COVID-19 PFIZER VACCINE 2021-02-07 00:00:00 Completed [facility] SARS-COV-2 COVID-19 PFIZER VACCINE 2021-02-07 00:00:00 Completed [facility] SARS-COV-2 COVID-19 PFIZER VACCINE 2021-02-07 00:00:00 Completed [facility] SARS-COV-2 COVID-19 PFIZER VACCINE 2021-02-07 00:00:00 Completed [facility] SARS-COV-2 COVID-19 PFIZER VACCINE 2021-02-07 00:00:00 Completed [facility] SARS-COV-2 COVID-19 PFIZER VACCINE 2021-02-07 00:00:00 Completed [facility] SARS-COV-2 COVID-19 PFIZER VACCINE 2021-02-07 00:00:00 Completed [facility] SARS-COV-2 COVID-19 PFIZER VACCINE 2021-02-07 00:00:00 Completed [facility] SARS-COV-2 COVID-19 PFIZER VACCINE 2021-01-10 00:00:00 Completed [facility] SARS-COV-2 COVID-19 PFIZER VACCINE 2021-01-10 00:00:00 Completed [facility] SARS-COV-2 COVID-19 PFIZER VACCINE 2021-01-10 00:00:00 Completed [facility] SARS-COV-2 COVID-19 PFIZER VACCINE 2021-01-10 00:00:00 Completed [facility] SARS-COV-2 COVID-19 PFIZER VACCINE 2021-01-10 00:00:00 Completed [facility] SARS-COV-2 COVID-19 PFIZER VACCINE 2021-01-10 00:00:00 Completed [facility] SARS-COV-2 COVID-19 PFIZER VACCINE 2021-01-10 00:00:00 Completed [facility] SARS-COV-2 COVID-19 PFIZER VACCINE 2021-01-10 00:00:00 Completed [facility] SARS-COV-2 COVID-19 PFIZER VACCINE 2021-01-10 00:00:00 Completed [facility] SARS-COV-2 COVID-19 PFIZER VACCINE 2021-01-10 00:00:00 Completed [facility] SARS-COV-2 COVID-19 PFIZER VACCINE 2021-01-10 00:00:00 Completed [facility] SARS-COV-2 COVID-19 PFIZER VACCINE 2021-01-10 00:00:00 Completed [facility] SARS-COV-2 COVID-19 PFIZER VACCINE 2021-01-10 00:00:00 Completed [facility] SARS-COV-2 COVID-19 PFIZER VACCINE 2021-01-10 00:00:00 Completed [facility] SARS-COV-2 COVID-19 PFIZER VACCINE 2021-01-10 00:00:00 Completed [facility] SARS-COV-2 COVID-19 PFIZER VACCINE 2021-01-10 00:00:00 Completed [facility] SARS-COV-2 COVID-19 PFIZER VACCINE 2021-01-10 00:00:00 Completed [facility] SARS-COV-2 COVID-19 PFIZER VACCINE 2021-01-10 00:00:00 Completed [facility] SARS-COV-2 COVID-19 PFIZER VACCINE 2021-01-10 00:00:00 Completed [facility] SARS-COV-2 COVID-19 PFIZER VACCINE 2021-01-10 00:00:00 Completed [facility] SARS-COV-2 COVID-19 PFIZER VACCINE 2021-01-10 00:00:00 Completed [facility] SARS-COV-2 COVID-19 PFIZER VACCINE 2021-01-10 00:00:00 Completed [facility] SARS-COV-2 COVID-19 PFIZER VACCINE 2021-01-10 00:00:00 Completed [facility] SARS-COV-2 COVID-19 PFIZER VACCINE 2021-01-10 00:00:00 Completed [facility] SARS-COV-2 COVID-19 PFIZER VACCINE 2021-01-10 00:00:00 Completed [facility] SARS-COV-2 COVID-19 PFIZER VACCINE 2021-01-10 00:00:00 Completed [facility] SARS-COV-2 COVID-19 PFIZER VACCINE 2021-01-10 00:00:00 Completed [facility] SARS-COV-2 COVID-19 PFIZER VACCINE 2021-01-10 00:00:00 Completed [facility] SARS-COV-2 COVID-19 PFIZER VACCINE 2021-01-10 00:00:00 Completed [facility] SARS-COV-2 COVID-19 PFIZER VACCINE 2021-01-10 00:00:00 Completed [facility] SARS-COV-2 COVID-19 PFIZER VACCINE 2021-01-10 00:00:00 Completed [facility] SARS-COV-2 COVID-19 PFIZER VACCINE 2021-01-10 00:00:00 Completed [facility] SARS-COV-2 COVID-19 PFIZER VACCINE 2021-01-10 00:00:00 Completed [facility] SARS-COV-2 COVID-19 PFIZER VACCINE 2021-01-10 00:00:00 Completed [facility] SARS-COV-2 COVID-19 PFIZER VACCINE 2021-01-10 00:00:00 Completed [facility] SARS-COV-2 COVID-19 PFIZER VACCINE 2021-01-10 00:00:00 Completed [facility] SARS-COV-2 COVID-19 PFIZER VACCINE 2021-01-10 00:00:00 Completed [facility] SARS-COV-2 COVID-19 PFIZER VACCINE 2021-01-10 00:00:00 Completed [facility] SARS-COV-2 COVID-19 PFIZER VACCINE 2021-01-10 00:00:00 Completed [facility] SARS-COV-2 COVID-19 PFIZER VACCINE 2021-01-10 00:00:00 Completed [facility] SARS-COV-2 COVID-19 PFIZER VACCINE 2021-01-10 00:00:00 Completed [facility] SARS-COV-2 COVID-19 PFIZER VACCINE 2021-01-10 00:00:00 Completed [facility] SARS-COV-2 COVID-19 PFIZER VACCINE 2021-01-10 00:00:00 Completed [facility] SARS-COV-2 COVID-19 PFIZER VACCINE 2021-01-10 00:00:00 Completed [facility] SARS-COV-2 COVID-19 PFIZER VACCINE 2021-01-10 00:00:00 Completed [facility] SARS-COV-2 COVID-19 PFIZER VACCINE 2021-01-10 00:00:00 Completed [facility] SARS-COV-2 COVID-19 PFIZER VACCINE 2021-01-10 00:00:00 Completed [facility] SARS-COV-2 COVID-19 PFIZER VACCINE 2021-01-10 00:00:00 Completed [facility] SARS-COV-2 COVID-19 PFIZER VACCINE 2021-01-10 00:00:00 Completed [facility] SARS-COV-2 COVID-19 PFIZER VACCINE 2021-01-10 00:00:00 Completed [facility] SARS-COV-2 COVID-19 PFIZER VACCINE 2021-01-10 00:00:00 Completed [facility] SARS-COV-2 COVID-19 PFIZER VACCINE 2021-01-10 00:00:00 Completed [facility] SARS-COV-2 COVID-19 PFIZER VACCINE 2021-01-10 00:00:00 Completed [facility] SARS-COV-2 COVID-19 PFIZER VACCINE Unknown Completed [facility] SARS-COV-2 COVID-19 PFIZER VACCINE Unknown Completed [facility] SARS-COV-2 COVID-19 PFIZER VACCINE Unknown Completed [facility] SARS-COV-2 COVID-19 PFIZER VACCINE Unknown Completed [facility] SARS-COV-2 COVID-19 PFIZER VACCINE Unknown Completed [facility] SARS-COV-2 COVID-19 PFIZER VACCINE Unknown Completed [facility] SARS-COV-2 COVID-19 PFIZER VACCINE Unknown Completed [facility] SARS-COV-2 COVID-19 PFIZER VACCINE Unknown Completed [facility] SARS-COV-2 COVID-19 PFIZER VACCINE Unknown Completed [facility] SARS-COV-2 COVID-19 PFIZER VACCINE Unknown Completed [facility] SARS-COV-2 COVID-19 PFIZER VACCINE Unknown Completed [facility] SARS-COV-2 COVID-19 PFIZER VACCINE Unknown Completed [facility] SARS-COV-2 COVID-19 PFIZER VACCINE Unknown Completed [facility] SARS-COV-2 COVID-19 PFIZER VACCINE Unknown Completed [facility] SARS-COV-2 COVID-19 PFIZER VACCINE Unknown Completed [facility] SARS-COV-2 COVID-19 PFIZER VACCINE Unknown Completed [facility] SARS-COV-2 COVID-19 PFIZER VACCINE Unknown Completed [facility] SARS-COV-2 COVID-19 PFIZER VACCINE Unknown Completed [facility] SARS-COV-2 COVID-19 PFIZER VACCINE Unknown Completed [facility] SARS-COV-2 COVID-19 PFIZER VACCINE Unknown Completed [facility] SARS-COV-2 COVID-19 PFIZER VACCINE Unknown Completed [facility] SARS-COV-2 COVID-19 PFIZER VACCINE Unknown Completed [facility] SARS-COV-2 COVID-19 PFIZER VACCINE Unknown Completed [facility] SARS-COV-2 COVID-19 PFIZER VACCINE Unknown Completed [facility] SARS-COV-2 COVID-19 PFIZER VACCINE Unknown Completed [facility] Vital Signs Vital Name Observation Time Observation Value Comments S ource Systolic blood pressure 2023-08-10 17:31:00 146 mm[Hg] [facility] Diastolic blood pressure 2023-08-10 17:31:00 79 mm[Hg] [place] [facility] Heart rate 2023-08-10 17:31:00 66 /[facility] Res[facility] 2023-08-10 17:31:00 19 /min [facility] [facility] Body height 2023-08-10 17:31:00 154.9 cm [facility] [place] Body weight 2023-08-10 17:31:00 74.39 kg [facility] [place] BMI 2023-08-10 17:31:00 30.99 kg/m2 [facility] Oxygen saturation in Arterial blood by Pulse oximetry 2023-08-10 17:31:00 94 /min [facility] Systolic blood pressure 2023-03-16 14:53:00 155 mm[Hg] [place] [facility] Diastolic blood pressure 2023-03-16 14:53:00 91 mm[Hg] [facility] Heart rate 2023-03-16 14:49:00 60 /min [facility] 2023-03-16 14:49:00 18 /min [facility] Body height 2023-03-16 14:49:00 154.9 cm [facility] Body weight 2023-03-16 14:49:00 74.617 kg [facility] [place] BMI 2023-03-16 14:49:00 31.08 kg/m2 [facility] Oxygen saturation in Arterial blood by Pulse oximetry 2023-03-16 14:49:00 92 /min [facility] [place] Systolic blood pressure 2020-10-11 00:00:00 106 mm[Hg] [facility] Diastolic blood pressure 2020-10-11 00:00:00 74 mm[Hg] [facility] Heart rate 2020-10-11 00:00:00 63 /min [facility] Respiratory rate 2020-10-11 00:00:00 16 /min [facility] Oxygen saturation in Arterial blood by Pulse oximetry 2020-10-11 00:00:00 98 /min [facility] Body temperature 2020-10-10 21:35:[address] [facility] Body height 2020-10-10 21:35:00 157.5 cm [facility] Body weight 2020-10-10 21:35:00 77.111 kg [facility] BMI 2020-10-10 21:35:00 31.09 kg/m2 [facility] Systolic blood pressure 2020-10-11 00:00:00 106 mm[Hg] [facility] Diastolic blood pressure 2020-10-11 00:00:00 74 mm[Hg] [facility] Heart rate 2020-10-11 00:00:00 63 /min [facility] Respiratory rate 2020-10-11 00:00:00 16 /min [facility] Oxygen saturation in Arterial blood by Pulse oximetry 2020-10-11 00:00:00 98 /min [facility] Body temperature 2020-10-10 21:35:[address] [facility] Body height 2020-10-10 21:35:00 157.5 cm [facility] Body weight 2020-10-10 21:35:00 77.111 kg [facility] BMI 2020-10-10 21:35:00 31.09 kg/m2 [facility] Systolic blood pressure 2020-05-16 06:00:00 163 mm[Hg] [facility] Diastolic blood pressure 2020-05-16 06:00:00 74 mm[Hg] [facility] Heart rate 2020-05-16 06:00:00 64 /min [facility] Respiratory rate 2020-05-16 06:00:00 20 /min [facility] Oxygen saturation in Arterial blood by Pulse oximetry 2020-05-16 06:00:00 98 /min [facility] Body temperature 2020-05-16 02:44:00 37.22 Luisa [facility] Body height 2020-05-16 02:44:00 152.4 cm [facility] Body weight 2020-05-16 02:44:00 77.111 kg [facility] BMI 2020-05-16 02:44:00 33.20 kg/m2 [facility] Systolic blood pressure 2020-05-16 06:00:00 163 mm[Hg] [facility] Diastolic blood pressure 2020-05-16 06:00:00 74 mm[Hg] [facility] Heart rate 2020-05-16 06:00:00 64 /min [facility] Respiratory rate 2020-05-16 06:00:00 20 /min [facility] Oxygen saturation in Arterial blood by Pulse oximetry 2020-05-16 06:00:00 98 /min [facility] Body temperature 2020-05-16 02:44:00 37.22 Luisa [facility] Body height 2020-05-16 02:44:00 152.4 cm [facility] Body weight 2020-05-16 02:44:00 77.111 kg [facility] BMI 2020-05-16 02:44:00 33.20 kg/m2 [facility] Procedures Procedure Date / Time Performed Performing Clinician Source CONSENT/REFUSAL FOR DIAGNOSIS AND TREATMENT 2023-11-24 15:20:03 Doctor Unassigned, [place] [facility] ASSIGNMENT OF BENEFITS 2023-11-24 15:19:35 Docto r Unassigned, [place] [facility] DME/SUPPLY JUSTIFICATION 2023-08-10 06:01:00 Doc tor Unassigned, [place] [facility] SLEEP STUDY DATA REPORT 2023-05-03 05:01:00 Doct or Unassigned, [place] [facility] OP CLINIC NOTES/CONSULTS 2023-02-02 05:01:00 Doc tor Unassigned, [place] [facility] REFERRAL- REQUEST/RESPONSE 2022-12-22 05:01:00 Doctor Unassigned, [place] [facility] ASSIGNMENT OF BENEFITS 2022-09-29 15:29:59 Docto r Unassigned, [place] [facility] REFERRAL- REQUEST/RESPONSE 2022-09-02 06:01:00 Doctor Unassigned, [place] [facility] EXTERNAL PROVIDER - ADC REFERRAL 2021-03-20 05:01:00 Doctor Unassigned, [place] [facility] LIPASE 2020-10-10 23:18[facility]00 [facility] (13633) (ALB,T.PRO,BILI T,BU/BC,ALT,AST,ALK PHOS) 2020-10-10 23:18:00 [facility]OLIC PANEL (NA, K, CL, CO2, GLUCOSE, BUN, CREATININE, CA) 2020-10-10 23:18:00 Darrick [facility] CBC WITH DIFF 2020-10-10 23:18:00 HollingsworthAnabela sanchez [facility] URINALYSIS 2020-10-10 23:04:00 Holl[place]worth, [facility] CT ABDOMEN PELVIS WO CONTRAST 2020-10-10 22:23:01 Holl[place], [facility] NOTICE OF PRIVACY PRACTICES 2020-10-10 21:29:06 Doctor Unassigned, [place] [facility] CONSENT/REFUSAL FOR DIAGNOSIS AND TREATMENT 2020-10-10 21:28:36 Doctor Unassigned, [place] [facility] EKG-12 LEAD 2020-05-16 05:28:45 Margaret Pemberton [facility] LIPASE 2020-05-16 04:35:00 Margaret Pemberton [facility] TROPONIN I 2020-05-16 04:35:00 Margaret Pemberton [facility] COMP. METABOLIC PANEL (92665) 2020-05-16 04:35:00 Margaret Pemberton [facility] CBC WITH DIFF 2020-05-16 04:35:00 Margaret Pemberton [facility] COVID-19 (ID NOW RAPID TESTING) 2020-05-16 04:35:00 Margaret Pemberton [facility] XR CHEST 1 VW 2020-05-16 04:16:00 Margaret Pemberton [facility] URINALYSIS 2020-05-16 03:08:00 Shreyas Mota [facility] NOTICE OF PRIVACY PRACTICES 2020-05-16 02:35:16 Doctor Unassigned, [place] [facility] CONSENT/REFUSAL FOR DIAGNOSIS AND TREATMENT 2020-05-16 02:34:46 Doctor Unassigned, [place] [facility] Encounters Start Date/Time End Date/Time Encounter Type Admission Type Attending [facility] Care Department Encounter ID Source 2023-02-16 16:30:48 Outpatient [facility] [id number] [facility] 2022-10-07 08:55:29 Outpatient [facility] [id number] [facility] 2022-08-31 07:51:11 Outpatient [facility] [id number] [facility] 2022-08-10 10:50:36 Outpatient [facility] [id number] [facility] 2022-04-14 07:54:13 Outpatient JOSE ANGEL LOZA [facility] [id number] [facility] 2022-04-13 10:22:44 Outpatient JOSE ANGEL LOZA [facility] [id number] [facility] 2022-03-24 15:48:13 Outpatient [facility] [id number] [facility] 2022-02-24 15:21:43 Outpatient [facility] [id number] [facility] 2022-02-23 12:34:09 Outpatient JOSE ANGEL LOZA [facility] [id number] [facility] 2021-07-18 18:58:18 Emergency [facility] [id number] [facility] 2021-07-17 14:37:11 Emergency [facility] [id number] [facility] 2024-09-08 10:52:52 2024-09-08 10:52:52 Outpatient [facility] [id number] Kelvin Lieberman 2024-06-01 10:53:52 2024-06-01 10:53:52 Outpatient [facility] [id number] Kelvin Lieberman 2024-05-02 10:14:40 2024-05-02 10:14:40 Outpatient [facility] [id number] Kelvin Lieberman 2024-02-02 09:40:26 2024-02-02 09:40:[address] [facility] [id number] Kelvin Lieberman 2023-11-24 09:30:00 2023-11-24 10:27:33 Ancillary Visit Stevenson Love Craig L [facility] 1.2840.114 350.1.13.10 4.2.7.2.686 [id number] [facility] 2023-11-24 00:00:00 2023-11-24 00:00:00 Orders Only Doctor Unassigned, [place] [facility] 1.2.114 350.1.13.10 4.2.7.2.686 [id number] [facility] 2023-11-21 09:30:00 2023-11-21 10:14:20 Ancillary Visit Stevenson Love Kevin [facility] 1.2.114 350.1.13.10 4.2.7.2.686 [id number] [facility] 2023-11-18 09:30:00 2023-11-18 09:30:00 Outpatient R KERRI PINA CRAIG [facility] [id number] [facility] 2023-11-16 09:30:00 2023-11-16 10:30:54 Ancillary Visit Anabela Kimbrough Craig L [facility] 1.2.114 350.1.13.10 4.2.7.2.686 [id number] [facility] 2023-11-11 09:30:00 2023-11-11 10:15:00 Ancillary Visit Yaneth Bukcley Craig L [facility] 1.2840.114 350.1.13.10 4.2.7.2.686 [id number] [facility] 2023-11-09 09:30:00 2023-11-09 13:38:47 Ancillary Visit Stevenson Love Craig L [facility] 1.2.840.114 350.1.13.10 4.2.7.2.686 [id number] [facility] 2023-11-03 08:00:00 2023-11-03 08:00:00 Outpatient KERRI TA CRAIG [facility] [id number] [facility] 2023-09-27 14:21:45 2023-09-27 14:21:45 Outpatient FRANK MARIE [id number] Kelvin Lieberman 2023-09-27 09:30:00 2023-09-27 13:50:38 Outpatient KERRI TA CRAIG [facility] [id number] [facility] 2023-09-27 09:30:00 2023-09-27 10:15:00 Ancillary Visit Stevenson Love Craig L [facility] 1.2.840.114 350.1.13.10 4.2.7.2.686 [id number] [facility] 2023-09-16 09:30:00 2023-09-16 10:43:41 Ancillary Visit Lucille Love Craig L [facility] 1.2.840.114 350.1.13.10 4.2.7.2.686 [id number] [facility] 2023-09-14 09:30:00 2023-09-14 10:40:08 Ancillary Visit Lucille Love Craig L [facility] 1.2.840.114 350.1.13.10 4.2.7.2.686 [id number] [facility] 2023-08-30 09:30:00 2023-08-30 11:11:31 Outpatient R KERRI PINA CRAIG [facility] [id number] [facility] 2023-08-30 09:30:00 2023-08-30 10:15:00 Ancillary Visit IvanLucille Kerri Pina [facility] 1.2.840.114 350.1.13.10 4.2.7.2.686 [id number] [facility] 2023-08-17 00:00:00 2023-08-17 00:00:00 Telephone Romie Arriaga [facility] 1.2.840.114 350.1.13.10 4.2.7.2.686 [id number] [facility] 2023-08-16 08:45:00 2023-08-16 09:23:42 Ancillary Visit Lucille Love Kerri Gold [facility] 1.2.840.114 350.1.13.10 4.2.7.2.686 [id number] [facility] 2023-08-15 00:00:00 2023-08-15 00:00:00 Telephone Romie Arriaga [facility] 1.2.840.114 350.1.13.10 4.2.7.2.686 [id number] [facility] 2023-08-10 11:30:00 2023-08-10 12:00:00 Office Visit Romie Arriaga [facility] 1.2.840.114 350.1.13.10 4.2.7.2.686 [id number] [facility] 2023-08-10 11:30:00 2023-08-10 11:30:00 Outpatient R ROMIE ARRIAGA STRAGAL [facility] [id number] [facility] 2023-08-10 00:00:00 2023-08-10 00:00:00 Orders Only Doctor Unassigned, [place] [facility] 1.84.114 350.1.13.10 4.2.7.2.686 [id number] [facility] 2023-08-09 08:45:00 2023-08-09 10:23:15 Ancillary Visit Lucille Love Craig L [facility] 1.840.114 350.1.13.10 4.2.7.2.686 [id number] [facility] 2023-08-04 16:08:13 2023-08-04 16:08:13 Outpatient FRANK MARIE [id number] Kelvin Araseli Lieberman 2023-08-04 08:45:00 2023-08-04 09:32:06 Ancillary Visit Anabela Kimbrough Craig L [facility] 1.840.114 350.1.13.10 4.2.7.2.686 [id number] [facility] 2023-07-29 20:00:00 2023-07-29 20:00:00 Outpatient R ROMIE ARRIAGA STRAGALogan [facility] [id number] [facility] 2023-07-28 09:30:00 2023-07-28 10:13:39 Outpatient KERRI TA CRAIG [facility] [id number] [facility] 2023-07-28 09:30:00 2023-07-28 10:13:39 Ancillary Visit Yaneth Buckley Craig L [facility] 1..840.114 350.1.13.10 4.2.7.2.686 [id number] [facility] 2023-07-26 08:45:00 2023-07-26 09:30:00 Ancillary Visit Veronica Medina Craig L [facility] 1.2.840.114 350.1.13.10 4.2.7.2.686 [id number] [facility] 2023-07-21 08:45:00 2023-07-21 09:30:00 Ancillary Visit [facility] 1.2840.114 350.1.13.10 4.2.7.2.686 [id number] [facility] 2023-07-18 09:30:00 2023-07-18 10:15:00 Ancillary Visit Veronica Medina [facility] 1.2840.114 350.1.13.10 4.2.7.2.686 [id number] [facility] 2023-07-18 09:30:00 2023-07-18 09:30:00 Outpatient R KERRI PINA CRAIG [facility] [id number] [facility] 2023-07-08 10:15:00 2023-07-08 11:00:00 Ancillary [facility] 1.2.840.114 350.1.13.10 4.2.7.2.686 [id number] 179 [id number] [facility] 2023-07-06 08:45:00 2023-07-06 09:30:00 Ancillary Visit [place] Love Craig [facility] 1.2.840.114 350.1.13.10 4.2.7.2.686 [id number] [facility] 2023-07-01 09:00:00 2023-07-01 09:43:38 Ancillary Visit Ivan Kerri Sommers [facility] 1.2.840.114 350.1.13.10 4.2.7.2.686 [id number] [facility] 2023-06-28 08:45:00 2023-06-28 09:32:45 Ancillary Visit Lucille Love Kerri Gold [facility] 1.2.840.114 350.1.13.10 4.2.7.2.686 [id number] [facility] 2023-06-07 09:30:00 2023-06-07 10:13:36 Outpatient R KERRI PINA CRAIG [facility] [id number] [facility] 2023-06-07 09:30:00 2023-06-07 10:13:36 Ancillary Visit Veronica Medina Craig L [facility] 1.2.840.114 350.1.13.10 4.2.7.2.686 [id number] [facility] 2023-06-06 18:51:35 2023-06-06 18:51:[address] [facility] [id number] Kelvin Lieberman 2023-05-26 09:30:00 2023-05-26 10:14:41 Ancillary Visit Yaneth Buckley Craig L [facility] 1.2.840.114 350.1.13.10 4.2.7.2.686 [id number] [facility] 2023-05-24 08:45:00 2023-05-24 09:30:00 Ancillary Visit Yaneth Buckley Craig L [facility] 1.2.840.114 350.1.13.10 4.2.7.2.686 [id number] [facility] 2023-05-16 09:15:00 2023-05-16 09:59:09 Outpatient R KERRI PINA [facility] [id number] [facility] 2023-05-16 09:15:00 2023-05-16 09:59:09 Ancillary Visit Bel Dominguez Craig L [facility] 1.2.840.114 350.1.13.10 4.2.7.2.686 [id number] [facility] 2023-05-03 20:00:00 2023-05-03 22:30:00 Auto Porter Visit 1, [facility] Bed Romie Arriaga [facility] 1..840.114 350.1.13.10 4.2.7.2.686 [id number] [facility] 2023-05-03 20:00:00 2023-05-03 20:00:00 Outpatient ROMIE PUTNAM STRAHIL [facility] [id number] [facility] 2023-05-03 00:00:00 2023-05-03 00:00:00 Orders Only Doctor Unassigned, [place] [facility] 1.2840.114 350.1.13.10 4.2.7.2.686 [id number] [facility] 2023-04-11 11:21:25 2023-04-11 11:21:25 Outpatient SFA SFA [id number] Kelvin Lieberman 2023-04-08 15:21:49 2023-04-08 15:21:49 Outpatient SFA SFA [id number] Kelvin Lieberman 2023-03-30 15:42:45 2023-03-30 15:42:45 Outpatient SFA SFA [id number] Kelvin Lieberman 2023-03-16 10:00:00 2023-03-16 10:30:00 Office Visit Romie Arriaga [facility] 1.2.840.114 350.1.13.10 4.2.7.2.686 [id number] [facility] 2023-03-16 10:00:00 2023-03-16 10:20:44 Outpatient R ROMIE ARRIAGA STRAHIL [facility] [id number] [facility] 2023-02-02 09:30:00 2023-02-02 10:09:30 Ancillary Visit Lucille Anthony Craig L [facility] 1.2.840.114 350.1.13.10 4.2.7.2.686 [id number] [facility] 2023-02-02 00:00:00 2023-02-02 00:00:00 Orders Only Doctor Unassigned, [place] [facility] 1.2.840.114 350.1.13.10 4.2.7.2.686 [id number] [facility] 2023-02-01 11:00:00 2023-02-01 11:45:00 Ancillary Visit Lucille Anthony Craig L [facility] 1.2.840.114 350.1.13.10 4.2.7.2.686 [id number] [facility] 2023-01-27 09:30:00 2023-01-27 11:30:06 Outpatient R KERRI PINA [facility] [id number] [facility] 2023-01-19 10:15:00 2023-01-19 11:41:12 Ancillary Visit Lucille Anthony Craig L [facility] 1.2.840.114 350.1.13.10 4.2.7.2.686 [id number] [facility] 2023-01-17 09:30:00 2023-01-17 09:30:00 Outpatient R KERRI PINA [facility] [id number] [facility] 2023-01-14 13:45:00 2023-01-14 13:45:00 Outpatient R KERRI PINA [facility] [id number] [facility] 2023-01-14 10:40:00 2023-01-14 10:40:00 Outpatient FRANK MARIE [id number] Kelvin Lieberman 2023-01-13 10:15:00 2023-01-13 11:14:45 Ancillary Visit Lucille Anthony Craig [facility] 1.2.840.114 350.1.13.10 4.2.7.2.686 [id number] [facility] 2023-01-10 00:00:00 2023-01-10 00:00:00 Case Management Lucille Anthony [facility] 1.2.840.114 350.1.13.10 4.2.7.2.686 [id number] [facility] 2023-01-05 08:45:00 2023-01-05 09:34:29 Ancillary Visit Lucille Anthony Craig L [facility] 1.2.840.114 350.1.13.10 4.2.7.2.686 [id number] [facility] 2023-01-05 08:45:00 2023-01-05 09:34:29 Outpatient R KERRI PINA [facility] [id number] [facility] 2022-12-30 10:15:00 2022-12-30 11:10:52 Ancillary Visit Lucille Anthony Craig L [facility] 1.2.840.114 350.1.13.10 4.2.7.2.686 [id number] 178 [id number] [facility] 2022-12-28 11:00:00 2022-12-28 11:47:44 Ancillary Visit Lucille Anthony Craig L [facility] 1.2.840.114 350.1.13.10 4.2.7.2.686 [id number] [facility] 2022-12-22 09:50:20 2022-12-22 09:50:[address] [facility] [id number] Kelvin Araseli Lieberman 2022-12-22 00:00:00 2022-12-22 00:00:00 Orders Only Doctor Unassigned, [place] [facility] 1.2.840.114 350.1.13.10 4.2.7.2.686 [id number] [facility] 2022-12-16 10:15:00 2022-12-16 11:33:58 Ancillary Visit Lucille Anthony Craig L [facility] 1.2.840.114 350.1.13.10 4.2.7.2.686 [id number] [facility] 2022-12-13 10:15:00 2022-12-13 11:00:00 Ancillary Visit Lucille Anthony Craig L [facility] 1.2.840.114 350.1.13.10 4.2.7.2.686 [id number] [facility] 2022-12-09 10:15:00 2022-12-09 11:04:07 Ancillary Visit Lucille Love Craig L [facility] 1.2.840.114 350.1.13.10 4.2.7.2.686 [id number] [facility] 2022-12-07 10:15:00 2022-12-07 11:12:31 Ancillary Visit Lucille Love Craig [facility] 1.2.840.114 350.1.13.10 4.2.7.2.686 [id number] [facility] 2022-11-30 10:15:00 2022-11-30 11:00:00 Ancillary Visit Stevenson Love Craig [facility] 1.2.840.114 350.1.13.10 4.2.7.2.686 [id number] [facility] 2022-11-30 09:30:00 2022-11-30 10:21:41 Ancillary Visit Lucille Anthony Craig L [facility] 1.2.840.114 350.1.13.10 4.2.7.2.686 [id number] [facility] 2022-11-29 11:00:00 2022-11-29 11:47:14 Ancillary Visit Stevenson Love Craig L [facility] 1.2.840.114 350.1.13.10 4.2.7.2.686 [id number] [facility] 2022-11-29 10:15:00 2022-11-29 11:11:38 [facility] 1.2.840.114 350.1.13.10 4.2.7.2.686 [id number] [facility] 2022-11-25 11:00:00 2022-11-25 11:45:00 [facility]illary [facility] 1.2.840.114 350.1.13.10 4.2.7.2.686 [id number] [facility] 2022-11-25 10:15:00 2022-11-25 11:02:22 Ancillary Visit Lucille Anthony Craig L [facility] 1.2.840.114 350.1.13.10 4.2.7.2.686 [id number] [facility] 2022-11-22 11:00:00 2022-11-22 11:31:11 [facility]illary Visit Stevenson [facility] 1.2.840.114 350.1.13.10 4.2.7.2.686 [id number] [facility] 2022-11-22 10:15:00 2022-11-22 10:58:25 Outpatient R KERRI PINA [facility] [id number] [facility] 2022-11-22 10:15:00 2022-11-22 10:58:25 Ancillary Visit Lucille Anthony Craig [facility] 1.2.840.114 350.1.13.10 4.2.7.2.686 [id number] [facility] 2022-11-16 10:15:00 2022-11-16 10:15:00 Outpatient R KERRI PINA [facility] [id number] [facility] 2022-11-11 10:15:00 2022-11-11 11:00:57 Ancillary Visit Lucille Love Craig L [facility] 1.2.840.114 350.1.13.10 4.2.7.2.686 [id number] [facility] 2022-11-11 09:30:00 2022-11-11 10:12:04 [facility] 1.2.840.114 350.1.13.10 4.2.7.2.686 [id number] [facility] 2022-11-08 11:00:00 2022-11-08 11:31:38 Ancillary Visit Ivan Stevenson Marx ConnorKerri Logan [facility] 1.2.840.114 350.1.13.10 4.2.7.2.686 [id number] 179 [id number] [facility] 2022-11-08 10:15:00 2022-11-08 11:15:30 Ancillary Visit Lucille AnthonyonaldKerri [facility] 1.2.840.114 350.1.13.10 4.2.7.2.686 [id number] 178 [id number] [facility] 2022-11-05 10:15:00 2022-11-05 10:44:41 Ancillary Visit Lucille Love Kerri Ford [facility] 1.2.840.114 350.1.13.10 4.2.7.2.686 [id number] 179 [id number] [facility] 2022-11-03 11:00:00 2022-11-03 11:45:00 Ancillary Visit Lucille Love Craig L [facility] 1.2.840.114 350.1.13.10 4.2.7.2.686 [id number] 179 [id number] [facility] 2022-10-28 11:00:00 2022-10-28 11:37:59 Ancillary Visit Lucille Love Craig L [facility] 1.2.840.114 350.1.13.10 4.2.7.2.686 [id number] 179 [id number] [facility] 2022-10-28 10:15:00 2022-10-28 11:14:14 Ancillary Visit Lucille Anthony Craig L [facility] 1.2.840.114 350.1.13.10 4.2.7.2.686 [id number] [facility] 2022-10-26 11:00:00 2022-10-26 11:54:58 Ancillary Visit Lucille Love Craig L [facility] 1.2.840.114 350.1.13.10 4.2.7.2.686 [id number] 179 [id number] [facility] 2022-10-26 10:15:00 2022-10-26 11:12:23 Ancillary Visit Lucille Anthony Craig L [facility] 1.2.840.114 350.1.13.10 4.2.7.2.686 [id number] 178 [id number] [facility] 2022-10-21 11:15:00 2022-10-21 11:56:16 Ancillary Visit Lucille Love Craig L [facility] 1.2.840.114 350.1.13.10 4.2.7.2.686 [id number] 179 [id number] [facility] 2022-10-21 09:30:00 2022-10-21 10:08:26 Outpatient R KERRI PINA [facility] [id number] [facility] 2022-10-21 09:30:00 2022-10-21 10:08:26 Ancillary Visit Lucille Anthony Craig L [facility] 1.2.840.114 350.1.13.10 4.2.7.2.686 [id number] [facility] 2022-10-19 00:00:00 2022-10-19 00:00:00 Case Management RajLucille [facility] 1.2.840.114 350.1.13.10 4.2.7.2.686 [id number] [facility] 2022-10-14 11:00:00 2022-10-14 11:56:14 Ancillary Visit Raj Kerri Oliver [facility] 1.2.840.114 350.1.13.10 4.2.7.2.686 [id number] [facility] 2022-10-14 10:15:00 2022-10-14 10:54:22 Ancillary Visit Yaneth Buckley Craig L [facility] 1.2.840.114 350.1.13.10 4.2.7.2.686 [id number] 179 [id number] [facility] 2022-10-13 10:15:00 2022-10-13 11:03:15 Ancillary Visit Raj Kerri Oliver [facility] 1.2.840.114 350.1.13.10 4.2.7.2.686 [id number] 178 [id number] [facility] 2022-10-13 09:30:00 2022-10-13 10:32:21 Ancillary Visit Anabela Kimbrough Craig L [facility] 1.2.840.114 350.1.13.10 4.2.7.2.686 [id number] 179 [id number] [facility] 2022-10-08 09:30:00 2022-10-08 11:34:22 Ancillary Visit Anabela Kimbrough Craig L [facility] 1.2.840.114 350.1.13.10 4.2.7.2.686 [id number] 179 [id number] [facility] 2022-10-06 09:30:00 2022-10-06 10:18:45 Ancillary Visit Anabela Kimbrough Craig L [facility] 1.2.114 350.1.13.10 4.2.7.2.686 [id number] [facility] 2022-09-29 09:30:00 2022-09-29 11:59:30 Outpatient R KERRI PINA [facility] [id number] [facility] 2022-09-29 09:30:00 2022-09-29 11:59:30 Ancillary Visit Lucille Anthony Craig [facility] 1..114 350.1.13.10 4.2.7.2.686 [id number] 178 [id number] [facility] 2022-09-29 00:00:00 2022-09-29 00:00:00 Orders Only Doctor Unassigned, [place] [facility] 1..114 350.1.13.10 4.2.7.2.686 [id number] [facility] 2022-09-27 11:00:00 2022-09-27 11:59:18 Outpatient R KERRI PINA [facility] [id number] [facility] 2022-09-27 11:00:00 2022-09-27 11:59:18 Ancillary Visit Chelita Che Craig [facility] 1..114 350.1.13.10 4.2.7.2.686 [id number] 179 [id number] [facility] 2022-09-02 00:00:00 2022-09-02 00:00:00 Orders Only Doctor Unassigned, [place] [facility] 1.20.114 350.1.13.10 4.2.7.2.686 [id number] [facility] 2022-09-01 11:00:00 2022-09-01 11:00:00 Outpatient JOSE ANGEL LOZA [facility] [id number] [facility] 2022-08-17 11:30:00 2022-08-17 11:30:00 Outpatient JOSE ANGEL LOZA [facility] [id number] [facility] 2022-07-06 09:27:36 2022-07-06 09:27:[address] [facility] 1018 Kelvin Lieberman 2022-02-28 17:05:00 2022-03-30 15:15:00 Inpatient GIULIA GROSS [facility] [id number] [facility] 2021-05-22 15:40:00 2021-05-22 15:40:00 [facility] [id number] 2021-05-07 10:00:00 2021-05-07 10:00:00 [facility] [id number] [facility] 2021-03-20 00:00:00 2021-03-20 00:00:00 Orders Only Doctor Unassigned, [place] [facility] 1.2.840.114 350.1.13.10 4.2.7.2.686 [id number] [facility] 2021-03-20 00:00:00 2021-03-20 00:00:00 Orders Only Doctor Unassigned, [place] [facility] 1.2.840.114 350.1.13.10 4.2.7.2.686 [id number] 2021-02-07 09:15:00 2021-02-07 09:15:00 Outpatient R [facility] [id number] [facility] 2021-01-10 09:30:00 2021-01-10 09:30:00 Outpatient R CORNELIUS ROSE [facility] [id number] [facility] 2020-10-10 15:39:00 2020-10-10 18:33:[facility] 1.2.840.114 350.1.13.10 4.2.7.2.686 [id number] [facility] 2020-10-10 15:39:00 2020-10-10 18:33:00 Emergency Darrick [facility] 1.2.840.114 350.1.13.10 4.2.7.2.686 [id number] 2020-05-15 21:47:00 2020-05-16 01:20:00 Emergency Niecy [facility] 1.2.840.114 350.1.13.10 4.2.7.2.686 [id number] [id number] [facility] 2020-05-15 21:47:00 2020-05-16 01:20:00 Emergency Margaret Pemberton [facility] 1.2.840.114 350.1.13.10 4.2.7.2.686 [id number] Results Test Description Test Time Test Comments Results Result Co mments Source CULTURE, [id number] 14:22:51SPECIMEN NUMBER: [id number] CULTURE, URINE SPECIMEN NUMBER: [id number] SOURCE: URINE REPORT STATUS: FINAL ISOLATE NUMBER 1: ORGANISM: 06/03/2024 >100,000 CFU/ML GRAM NEGATIVE BACILLI IDENTIFICATION: 06/04/2024 ESCHERICHIA COLI E. COLI AMOXICILLIN/CA SENSITIVE <=8/4AMPICILLIN SENSITIVE <=8CEFAZOLIN SENSITIVE <=2CEFTRIAXONE SENSITIVE <=1CIPROFLOXACIN RESISTANT >2LEVOFLOXACIN RESISTANT >4NITROFURANTOIN SENSITIVE <=32PIP/TAZOBAC SENSITIVE <=16TOBRAMYCIN SENSITIVE <=4TRIMETH/SULFA SENSITIVE <=2/38 NOTE: NUMBERS DISPLAYED REPRESENT MINIMUM INHIBITORYCONCENTRATION (JEFF) WHICH IS EXPRESSED IN MCG/ML.HEMOGLOBIN [id number] 06:34:23* Test Item Value Reference Range Interpretation Comme [facility] HEMOGLOBIN A1c (test code = 24229) 6.2 % 4.2-5.6 H [employer] GUIDELINES FOR HGB A1C: [...] ETC.). CONSIDER ALTERNATE TESTING OR LABORATORY CONSULTATION. HEPATITIS PANEL, [id number] 06:33:38* Test Item Value Reference Range Interpretation [...] infection. INTERPRETATION HEPATITIS B: (test code = 21521) (NOTE) Hepatitis B sero logy consistent with past exposure to hepatitis Bvirus with immunity to hepatitis B virus. No evidence of currentacute hepatitis B infection. INTERPRETATION HEPATITIS C: (test code = 24141) (NOTE) Hepatitis C sero logy shows no evidence of exposure to hepatitisC virus at this time. It can take up to 12 months after exposure tothe hepatitis C virus for antibodies to become detectable in the blood in certain patients. HIV 1/2 4TH GEN, RFLX [id number] 06:33:38* Test Item Value Reference Range Interpretation Comme [facility] HIV 1/2 4TH GEN, RFLX CONF ( test code = 3514) NON-REACTIVE NON-REACTIVE HEPATITIS A [id number] 06:33:38* Test Item Value Reference Range Interpretation Comme nts HEPATITIS A IgM (test code = 2728) NON-REACTIVE NON-REACTIVE UNLESS OTHERW ISE INDICATED, ALL TESTING PERFORMED AT [facility] [address] [place] [address] CRYPTOANALYSIS TEACHER: JEFF ROCKWELL M.D. CLIA NUMBER [id number] [facility] [place]. [id number] COMPREHENSIVE METABOLIC [id number] 04:26:37* Test Item Value Reference Range Interpretation Comme nts GLUCOSE (test code = 2217) 85 MG/DL 70-99 BUN (test code = 220) 14 MG/DL 8-23 CREATININE (test code = 2214) 0.95 MG/DL 0.60-1.30 eGFR (2020 CKD-EPI) (test co de = 09774) 63 ML/MIN/1.73 >60 CALC BUN/CREAT (test code = 2235) 15 RATIO 6-28 SODIUM (test code = 223) 138 MEQ/L 133-146 POTASSIUM (test code = 2228) 4.7 MEQ/L 3.5-5.4 CHLORIDE (test code = 2215) 100 MEQ/L 95-107 CARBON DIOXIDE (test code = 2206) 25 MEQ/L 19-31 CALCIUM (test code = 2209) 9.0 MG/DL 8.5-10.5 PROTEIN, TOTAL (test code = 2229) 7.9 G/DL 6.1-8.3 ALBUMIN (test code = 2201) 4.3 G/DL 3.5-5.2 CALC GLOBULIN (test code = 2240) 3.6 G/DL 1.9-3.7 CALC A/G RATIO (test code = 2234) 1.2 RATIO 1.0-2.6 BILIRUBIN, TOTAL (test code = 2207) 0.5 MG/DL <=1.2 ALKALINE PHOSPHATASE (test code = 2204) 88 U/L 40-142 AST (test code = 2218) 22 U/L 9-40 ALT (test code = 2219) 13 U/L 5-40 LIPID [id number] 04:26:37* Test Item Value Reference Range Interpretation Comme nts CHOLESTEROL (test code = 2210) 106 MG/DL <200 TRIGLYCERIDES (test code = 2232) 100 MG/DL <150 HDL CHOLESTEROL (test code = 2220) 45 MG/DL >39 CALC LDL CHOL (test code = 2237) 42 MG/DL <100 NOTE: CALCULATED LDL IS BASED ON CARINA-STOLL METHOD WHICHINCLUDES ADJUSTABLE TRIGLYCERIDE:VLDL CHOLESTEROL RATIO.THIS FACTOR VARIES BY MEASURED TRIGLYCERIDE AND NON-HDLCHOLESTEROL CONCENTRATIONS WITH INCREASED CALCULATED LDL SEENIN HIGHER TRIGLYCERIDE OR LOWER NON-HDL SPECIMENS. FOR MOREINFORMATION, SEE CLIENT ANNOUNCEMENT AT [email or web address] RISK RATIO LDL/HDL (test code = 2238) 0.93 RATIO <3.22 CBC W/AUTO DIFF WITH [id number] 03:50:13* Test Item Value Reference Range Interpretation [...] = 1065) 0.0 /100 WBC'S See_Comment [Automated [employer] ge] The system which generated this result [...] 0.00-0.10 ABS NUCLEATED RBCS (test code = 13844) 0.00 K/UL 0.00-0.11 CULTURE, [id number] 12:34:42SPECIMEN NUMBER: [id number] CULTURE, URINE SPECIMEN NUMBER: [id number] SOURCE: URINE REPORT STATUS: FINAL ISOLATE NUMBER 1: ORGANISM: 05/04/2024 >100,000 CFU/ML GRAM NEGATIVE BACILLI IDENTIFICATION: 05/05/2024 ESCHERICHIA COLI E. COLI AMOXICILLIN/CA SENSITIVE <=8/4AMPICILLIN RESISTANT >16CEFAZOLIN SENSITIVE <=2CEFTRIAXONE SENSITIVE <=1CIPROFLOXACIN SENSITIVE <=0.25LEVOFLOXACIN SENSITIVE <=0.5NITROFURANTOIN SENSITIVE <=32PIP/TAZOBAC SENSITIVE <=16TOBRAMYCIN INTERMED 8TRIMETH/SULFA RESISTANT >2/38 NOTE: NUMBERS DISPLAYED REPRESENT MINIMUM INHIBITORY C ONCENTRATION (JEFF) WHICH IS EXPRESSED IN MCG/ML. UNLESS OTHERWISE INDICATED, ALL TESTING PERFORMED AT [facility] [employer]. [address] [place], [place] [address] CRYPTOANALYSIS TEACHER: JEFF ROCKWELL M.D. [place] NUMBER [id number] [facility] [place]. [id number] [id number] 05:00:52* Test Item Value Reference Range Interpretation Comme nts HEMOGLOBIN A1c (test code = 58629) 6.4 % 4.2-5.6 H [employer] GUIDELINES FOR HGB A1C: [...] UNLESS OTHERWISE INDICATED, ALL TESTING PERFORMED AT [facility] [address] [place] [address] CRYPTOANALYSIS TEACHER: JEFF ROCKWELL M.D. CLIA NUMBER [id number] [facility] [place]. [id number] COMPREHENSIVE METABOLIC [id number] 04:02:13* Test Item Value Reference Range Interpretation Comme nts GLUCOSE (test code = 221) 99 MG/DL 70-99 BUN (test code = 220) 14 MG/DL 8-23 CREATININE (test code = 221) 0.93 MG/DL 0.60-1.30 eGFR (2020 CKD-EPI) (test co de = 81431) 65 ML/MIN/1.73 >60 CALC BUN/CREAT (test code = 223) 15 RATIO 6-28 SODIUM (test code = 223) 142 MEQ/L 133-146 POTASSIUM (test code = 2228) 4.8 MEQ/L 3.5-5.4 CHLORIDE (test code = 2215) 107 MEQ/L 95-107 CARBON DIOXIDE (test code = 2206) 23 MEQ/L 19-31 CALCIUM (test code = 220) 9.3 MG/DL 8.5-10.5 PROTEIN, TOTAL (test code = 2229) 7.7 G/DL 6.1-8.3 ALBUMIN (test code = 2201) 4.4 G/DL 3.5-5.2 CALC GLOBULIN (test code = 2240) 3.3 G/DL 1.9-3.7 CALC A/G RATIO (test code = 2234) 1.3 RATIO 1.0-2.6 BILIRUBIN, TOTAL (test code = 220) 0.3 MG/DL <=1.2 ALKALINE PHOSPHATASE (test code = 220) 88 U/L 40-142 AST (test code = 2218) 16 U/L 9-40 ALT (test code = 2219) 11 U/L 5-40 LIPID [id number] 04:02:13* Test Item Value Reference Range Interpretation Comme nts CHOLESTEROL (test code = 2210) 103 MG/DL <200 TRIGLYCERIDES (test code = 2232) 125 MG/DL <150 HDL CHOLESTEROL (test code = 2220) 45 MG/DL >39 CALC LDL CHOL (test code = 223) 37 MG/DL <100 NOTE: CALCULATED LDL IS BASED ON CARINA-STOLL METHOD WHICHINCLUDES ADJUSTABLE TRIGLYCERIDE:VLDL CHOLESTEROL RATIO.THIS FACTOR VARIES BY MEASURED TRIGLYCERIDE AND NON-HDLCHOLESTEROL CONCENTRATIONS WITH INCREASED CALCULATED LDL SEENIN HIGHER TRIGLYCERIDE OR LOWER NON-HDL SPECIMENS. FOR MOREINFORMATION, SEE CLIENT ANNOUNCEMENT AT [email or web address] RISK RATIO LDL/HDL (test code = 2238) 0.82 RATIO <3.22 TSH, THIRD [id number] 06:21:49* Test Item Value Reference Range Interpretation Comme nts TSH, THIRD GENERATION (test code = 2821) 0.991 UIU/ML 0.400-4.100 UNLESS OTHERWISE INDICATED, ALL TESTING PERFORMED AT [facility] [address] [place] [address] CRYPTOANALYSIS TEACHER: JEFF ROCKWELL M.D. [place] NUMBER [id number] [facility] [place]. [id number] VITAMIN D, 25 [id number] 06:21:28* Test Item Value Reference Range Interpretation [...] . . . . NG/ML 30-100 LIPID [id number] 06:19:43* Test Item Value Reference Range Interpretation [...] SPECIMENS. FOR MOREINFORMATION, SEE CLIENT ANNOUNCEMENT AT [email or web address] /[email or web address] RISK RATIO LDL/HDL (test code = 2237) 0.52 RATIO <3.22 COMPREHENSIVE METABOLIC [id number] 06:19:43* Test Item Value Reference Range Interpretation Comme nts GLUCOSE (test code = 2216) 94 MG/DL 70-99 BUN (test code = 2207) 12 MG/DL 8-23 CREATININE (test code = 2213) 0.74 MG/DL 0.60-1.30 eGFR (2020 CKD-EPI) (test co de = 39806) 86 ML/MIN/1.73 >60 CALC BUN/CREAT (test code = 2234) 16 RATIO 6-28 SODIUM (test code = 2230) 142 MEQ/L 133-146 POTASSIUM (test code = 2227) 4.4 MEQ/L 3.5-5.4 CHLORIDE (test code = 2214) 105 MEQ/L 95-107 CARBON DIOXIDE (test code = 2205) 27 MEQ/L 19-31 CALCIUM (test code = 2208) 9.6 MG/DL 8.5-10.5 PROTEIN, TOTAL (test code = 2228) 7.8 G/DL 6.1-8.3 ALBUMIN (test code = 2200) 4.3 G/DL 3.5-5.2 CALC GLOBULIN (test code = 2240) 3.5 G/DL 1.9-3.7 CALC A/G RATIO (test code = 2234) 1.2 RATIO 1.0-2.6 BILIRUBIN, TOTAL (test code = 2206) 0.3 MG/DL <=1.2 ALKALINE PHOSPHATASE (test code = 2203) 109 U/L 40-142 AST (test code = 2217) 17 U/L 9-40 ALT (test code = 2219) 23 U/L 5-40 HEMOGLOBIN [id number] 04:06:54* Test Item Value Reference Range Interpretation Comme [facility] HEMOGLOBIN A1c (test code = 14597) 6.0 % 4.2-5.6 H [employer]ATION GUIDELINES FOR HGB A1C: [...] OR LABORATORY CONSULTATION. CBC W/AUTO DIFF WITH [id number] 02:50:58* Test Item Value Reference Range Interpretation [...] = 1065) 0.0 /100 WBC'S See_Comment [Automated [employer] ge] The system which generated this result [...] 0.00-0.10 ABS NUCLEATED RBCS (test code = 37187) 0.00 K/UL 0.00-0.11 CULTURE, [id number] 13:02:33SPECIMEN NUMBER: [id number] CULTURE, URINE SPECIMEN NUMBER: [id number] SPECIMEN COMMENT: URINE SOURCE: URINE REPORT STATUS: FINAL ISOLATE NUMBER 1: ORGANISM: 01/16/2023 >100,000 CFU/ML GRAM NEGATIVE BACILLI IDENTIFICATION: 01/19/2023 ESCHERICHIA COLI E. COLI AMOXICILLIN/CA SENSITIVE <=8/4AMPICILLIN SENSITIVE <=8CEFAZOLIN SENSITIVE <=2CEFTRIAXONE SENSITIVE <=1CIPROFLOXACIN SENSITIVE <=1LEVOFLOXACIN SENSITIVE <=2NITROFURANTOIN SENSITIVE <=32PIP/TAZOBAC SENSITIVE <=16TETRACYCLINE RESISTANT >8TOBRAMYCIN SENSITIVE <=4TRIMETH/SULFA SENSITIVE <=2/38 NOTE: NUMBERS DISPLAYED REPRESENT MINIMUM INHIBITORY CONCENTRATION (JEFF) WHICH IS EXPRESSED IN MCG/ML. [facility] has important pathology staff changes effective 11/17/2022. New pathology staff will provide uninterrupted, excellent patient care and clinical consultation. See URL: [email or web address]. UNLESS OTHERWISE INDICATED, ALL TESTING PERFORMED AT [facility] [address] [place] [address] CRYPTOANALYSIS TEACHER: JEFF ROCKWELL M.D. [place] NUMBER [id number] [facility] [place]. [id number], [id number] 13:54:04SPECIMEN NUMBER: [id number] CULTURE, URINE SPECIMEN NUMBER: [id number] SPECIMEN COMMENT: URINE SOURCE: URINE REPORT STATUS: [...] MCG/ML. UNLESS OTHERWISE INDICATED, ALL TESTING PERFORMED [facility], [facility]. [address] [place] [address] CRYPTOANALYSIS TEACHER: LIZZY GREENWOOD M.D. CLIA NUMBER [id number] [place]. [id number], [id number] 11:37:05SPECIMEN NUMBER: [id number] CULTURE, URINE SPECIMEN NUMBER: [id number] SPECIMEN COMMENT: URINE SOURCE: URINE REPORT STATUS: FINAL ISOLATE NUMBER 1: ORGANISM: 04/30/2022 >100,000 CFU/ML GRAM NEGATIVEBACILLI IDENTIFICATION: 05/01/2022 ESCHERICHIA COLI E. COLI AMOXICILLIN/CA INTERMED 16/8AMPICILLIN RESISTANT >16CEFAZOLIN SENSITIVE <=2CEFTRIAXONE SENSITIVE <=1CIPROFLOXACIN SENSITIVE <=1LEVOFLOXACIN SENSITIVE <=2NITROFURANTOIN SENSITIVE <=32PIP/TAZOBAC SENSITIVE <=16TETRACYCLINE RESISTANT >8TOBRAMYCIN SENSITIVE <=4TRIMETH/SULFA RESISTANT >2/38 NOTE: NUMBERS DISPLAYED REPRESENT MINIMUM INHIBITORY CONCENTRATION (JEFF) WHICH IS EXPRESSED IN MCG/ML. UNLESS OTHERWISE INDICATED, ALL TESTING PERFORMED [facility], [facility]. [address] [place] [address] CRYPTOANALYSIS TEACHER: LIZZY GREENWOOD M.D. CLIA NUMBER [id number] [place]. [id number] Function Panel (ALB, T.PRO, BILI T, BU/BC, ALT, AST, ALK PHOS)2020-10-10 23:54:00* Test Item Value Reference Range Interpretation Comme nts TOTAL BILI (test code = 2845706490) 0.5 mg/dL 0.1-1.1 BILI UNCON (test code = 3074084594) 0.4 mg/dL 0.1-1.1 BILI CONJ (test code = 5838824665) 0.0 mg/dL 0-0.3 T PROTEIN (test code = 1588833018) 8.3 g/dL 6.3-8.2 H ALBUMIN (test code = 0319249625) 4.5 g/dL 3.5-5 ALK PHOS (test code = 8297147675) 86 U/L 34-122 ALTv (test code = 1742-6) 17 U/L 5-35 AST(SGOT) (test code = 1562540877) 31 U/L 13-40 Lab Interpretation (test cod e = 34926-5) [facility] [id number] 23:54:00* Test Item Value Reference Range Interpretation Comme nts LIPASE (test code = 6234603543) 60 U/L 0-220 Lab Interpretation (test cod e = 63423-8) Normal [facility] Met[facility] (NA, K, CL, CO2, GLUCOSE, BUN, CREATININE, CA)2020-10-10 23:54:00* Test Item Value Reference Range Interpretation Comme nts NA (test code = 7867168174) 140 mmol/L 135-145 K (test code = 3581718256) 4.7 mmol/L 3.5-5 CL (test code = 4773819695) 104 mmol/L 98-108 CO2 TOTAL (test code = 9580930508) 28 mmol/L 23-31 AGAP (test code = 3328298353) 2-16 BUN (test code = 0923710417) 17 mg/dL 7-23 GLUCOSE (test code = 2449227954) 92 mg/dL 70-110 CREATININE (test code = 1182693315) 0.81 mg/dL 0.5-1.04 CALCIUM (test code = 2103437127) 9.3 mg/dL 8.6-10.6 eGFR Calculation (Non-) (test code = 5900062846) mL/min/1.73m2 eGFR Calculation () (test code = 6061296795) mL/min/1.73m2 JOHN (test code = JOHN) Association [...] in imaging tests). [facility] CenterUrinalysis2021-01-22 23:41:00* Test Item Value Reference Range Interpretation Comme nts APPEARANCE (test code = 9740737591) Hazy Clear A COLOR (test code = 6055601282) Yellow Yellow PH (test code = 7554831050) 4.8-8.0 SP GRAVITY (test code = 3239627503) 1.003-1.030 GLU U QUAL (test code = 3518537681) Normal Normal BLOOD (test code = 0374904486) Negative Negative INTERFERENCE FRO M ASCORBIC ACID MAY CAUSE FALSE NEGATIVE RESULT KETONES (test code = 4180930965) Negative Negative PROTEIN (test code = 2887-8) Negative Negative UROBILIN (test code = 1547842584) Normal Normal BILIRUBIN (test code = 6221973628) Negative Negative NITRITE (test code = 4020785186) Negative Negative LEUK NESS (test code = 8866479248) 250/uL Negative A RBC/HPF (test code = 5930691098) See_Comment [[email or web address]] The system which generated this result transmitted reference range: 0 - 3 HPF. The reference range was not used to interpret this result as normal/abnormal. WBC/HPF (test code = 9998169327) See_Comment [[employer]] The system which generated this result transmitted reference range: 0 - 5 HPF. The reference range was not used to interpret this result as normal/abnormal. BACTERIA (test code = 8620137745) Negative Negative MUCOUS (test code = 8900430059) Slight Negative LPF A SQ EPITH (test code = 2263419313) HPF Lab Interpretation (test code = 13938-9) Abnormal [facility] with Irugghqsyvvc3476-77-30 23:36:00* Test Item Value Reference Range Interpretation Comme nts WBC (test code = 6690-2) See_Comment [Automated messa ge] The system which generated this result transmitted reference range: 4.30 - 11.10 10*3/?L. The reference range was not used to interpret this result as normal/abnormal. RBC (test code = 789-8) See_Comment [Automated messa ge] The system which [...] g/dL 31.6-35.1 L RDW-SD (test code = 42641-1) 46.5 fL 39-49.9 RDW-CV (test code = 788-0) 14.4 % 12-15.5 PLT (test code = 777-3) See_Comment [Automated messa ge] The system which generated this result transmitted reference range: 166 - 358 10*3/?L. The reference range was not used to interpret this result as normal/abnormal. MPV (test code = 88443-8) 9.5 fL 9.5-12.9 NRBC/100 WBC (test code = 2487453351) See_Comment [Automated CORD:USE [employer] ssage] The system which generated this result transmitted reference range: 0.0 - 10.0 /100 WBCs. The reference range was not used to interpret this result as normal/abnormal. NRBC x10^3 (test code = 9630852157) <0.01 See_Comment [Automated [employer]] The system which generated this result transmitted reference range: 10*3/?L. The reference range was not used to interpret this result as normal/abnormal. GRAN MAT (NEUT) % (test code = 770-8) 53.6 % IMM GRAN % (test code = 3440916809) 0.20 % LYMPH % (test code = 736-9) 36.6 % MONO % (test code = 5905-5) 8.6 % EOS % (test code = 713-8) 0.7 % BASO % (test code = 706-2) 0.3 % GRAN MAT x10^3(ANC) (test code = 7311457587) 3.16 10*3/uL 1.88-7.09 IMM GRAN x10^3 (test code = 5191088725) <0.03 0-0.06 LYMPH x10^3 (test code = 731-0) 2.16 10*3/uL 1.32-3.29 MONO x10^3 (test code = 742-7) 0.51 10*3/uL 0.33-0.92 EOS x10^3 (test code = 711-2) 0.04 10*3/uL 0.03-0.39 BASO x10^3 (test code = 704-7) <0.03 0.01-0.07 Lab Interpretation (test code = 99184-8) [facility]/O [id number] 23:05:431. ?Interval enlargement of cystic lesion within the medial segment 7 [id number]. Central fluid attenuation suggests a simple cyst. [...] cystic lesion within the medial segment 7 [id number]. Central fluid attenuation suggests a simple cyst. Considerconfirmation with multiphasic CT or MRI given interval growth. 2. Status post cholecystectomy.3. Punctate bilateral nonobstructive nephrolithiasis.4. Left adrenal benign adenoma.5. Left ovarian 1.7 cm cyst. Attention on follow-up in 6 weeks.6. Scarring in the ventral abdominal wall and small fat-containingumbilical hernia.[facility] [id number] 05:48:00* Test Item Value Reference Range Interpretation Comme nts TROPONIN I (test code = 6467470126) 0.029 ng/mL See_Comment [Automated message] The system [...] biotin. ? Lab Interpretation (test code = 53815-2) Normal [facility] CHEST 1 [id number] 05:11:31No acute cardiopulmonary abnormality. Preliminary Report Dictated [...] knob is calcified. No acute osseous abnormality. [facility], Radiant Results Inft User - 05/16/2020 12:12 [...] withthe above report. [facility]OLIC PANEL (19222)2020-05-16 05:05:00* Test Item Value Reference Range Interpretation Comme nts NA (test code = 8510010142) 140 mmol/L 135-145 K (test code = 2734708705) 4.6 mmol/L 3.5-5 CL (test code = 7740898125) 108 mmol/L 98-108 CO2 TOTAL (test code = 0571357791) 29 mmol/L 23-31 AGAP (test code = 3649330291) 2-16 BUN (test code = 6425151661) 18 mg/dL 7-23 GLUCOSE (test code = 0826807143) 108 mg/dL 70-110 CREATININE (test code = 8730125429) 0.92 mg/dL 0.5-1.04 TOTAL BILI (test code = 5297700530) 0.4 mg/dL 0.1-1.1 CALCIUM (test code = 7876992249) 9.3 mg/dL 8.6-10.6 T PROTEIN (test code = 2233145284) 8.1 g/dL 6.3-8.2 ALBUMIN (test code = 4546844217) 4.2 g/dL 3.5-5 ALK PHOS (test code = 3305926340) 71 U/L 34-122 ALTv (test code = 1742-6) 20 U/L 5-35 AST(SGOT) (test code = 7405087406) 50 U/L 13-40 H eGFR Calculation (Non-) (test code = 6770068922) mL/min/1.73m2 eGFR Calculation () (test code = 1553847899) mL/min/1.73m2 JOHN (test code = JOHN) Association [...] imaging tests). Lab Interpretation (test code = 41085-7) [facility]normal [facility]2020-08-28 05:04:00* Test Item Value Reference Range Interpretation Comme nts LIPASE (test code = 0817070984) 48 U/L 0-220 Lab Interpretation (test cod e = 67649-0) Normal [facility]OVID[facility] (ID NOW RAPID TESTING)2020-05-16 05:01:00* Test Item Value Reference Range Interpretation Comme nts SARS-CoV-2 Rapid ID NOW (test code = 48610-6) Not Detected Not Detected JOHN (test code = JOHN) ID NOW COVID-19 As say is an isothermal nucleic acid amplification test intended for the qualitative detection of nucleic acid from SARS-CoV-2 viral RNA in nasopharyngeal (ORE FEEDER) specimens. It is used under Emergency Use [...] clinically indicated. Lab Interpretation (test code = 21021-1) Normal [facility] WITH [id number] 04:46:00* Test Item Value Reference Range Interpretation Comme nts WBC (test code = 6690-2) See_Comment [Automated [employer]] The system which generated this result transmitted reference range: 4.30 - 11.10 10*3/?L. The reference range was not used to interpret this result as normal/abnormal. RBC (test code = 789-8) See_Comment [Automated [employer] ge] The system which generated this result [...] g/dL 31.6-35.1 L RDW-SD (test code = 90830-2) 49.1 fL 39-49.9 RDW-CV (test code = 788-0) 15.1 % 12-15.5 PLT (test code = 777-3) See_Comment [Automated [employer] ge] The system which generated this result transmitted reference range: 166 - 358 10*3/?L. The reference range was not used to interpret this result as normal/abnormal. MPV (test code = 99253-3) 9.8 fL 9.5-12.9 NRBC/100 WBC (test code = 1234510798) See_Comment [Automated C[employer]] The system which generated this result transmitted reference range: 0.0 - 10.0 /100 WBCs. The reference range was not used to interpret this result as normal/abnormal. NRBC x10^3 (test code = 7540356574) <0.01 See_Comment [Automated [employer] ge] The system which generated this result transmitted reference range: 10*3/?L. The reference range was not used to interpret this result as normal/abnormal. GRAN MAT (NEUT) % (test code = 770-8) 50.8 % IMM GRAN % (test code = 8124874804) 0.40 % LYMPH % (test code = 736-9) 39.1 % MONO % (test code = 5905-5) 7.7 % EOS % (test code = 713-8) 1.6 % BASO % (test code = 706-2) 0.4 % GRAN MAT x10^3(ANC) (test code = 7184822208) 2.90 10*3/uL 1.88-7.09 IMM GRAN x10^3 (test code = 8989954851) <0.03 0-0.06 LYMPH x10^3 (test code = 731-0) 2.23 10*3/uL 1.32-3.29 MONO x10^3 (test code = 742-7) 0.44 10*3/uL 0.33-0.92 EOS x10^3 (test code = 711-2) 0.09 10*3/uL 0.03-0.39 BASO x10^3 (test code = 704-7) <0.03 0.01-0.07 Lab Interpretation (test code = 25154-2) Abnormal [facility]IS2020-08-28 03:37:00* Test Item Value Reference Range Interpretation Comme nts APPEARANCE (test code = 5085152148) Clear Clear COLOR (test code = 3100387418) Yellow Yellow PH (test code = 8267910251) 4.8-8.0 SP GRAVITY (test code = 7398372024) 1.003-1.030 GLU U QUAL (test code = 4040196113) Normal Normal BLOOD (test code = 1654505080) Negative Negative INTERFERENCE FRO M ASCORBIC ACID MAY CAUSE FALSE NEGATIVE RESULT KETONES (test code = 6461254371) Negative Negative PROTEIN (test code = 2887-8) Negative Negative UROBILIN (test code = 9767103694) Normal Normal BILIRUBIN (test code = 8971918745) Negative Negative NITRITE (test code = 0496988430) Negative Negative LEUK NESS (test code = 1157691329) Negative Negative RBC/HPF (test code = 7057671368) See_Comment [Automated [employer] ge] The system which generated this result transmitted reference range: 0 - 3 HPF. The reference range was not used to interpret this result as normal/abnormal. WBC/HPF (test code = 9496296868) See_Comment [Automated [employer] ge] The system which generated this result transmitted reference range: 0 - 5 HPF. The reference range was not used to interpret this result as normal/abnormal. BACTERIA (test code = 9911176663) Few Negative A MUCOUS (test code = 7306590395) Slight Negative LPF A SQ EPITH (test code = 2200710416) HPF Lab Interpretation (test code = 56918-6) Abnormal [facility]"
--- NOTE | 2024-10-11 08:33 | RAD REPORT ---
EXAM: CT brain without contrast HISTORY: Left numbness COMPARISON: None TECHNIQUE: Multiple contiguous axial images were obtained and a CT of the brain without contrast. Sagittal and coronal reformats were performed. Automated exposure control, adjustment of the mA and/or kV according to patient size, and/or itera tive reconstruction. 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 Mild low-density par aventricular, deep and subcortical white matter likely ischemic changes secondary to small vessel disease. Empty sella turcica No fluid within the visualized sinuses or mastoids noted. IMPRESSION: No acute intracranial abnormality noted. If the patient's symptoms persist MRI of the brain would be recommended. from the emergency room was notified at 7:29 AM April 10, 2025
--- NOTE | 2024-10-11 08:41 | RAD REPORT ---
EXAMINATION: CTA HEAD CLINICAL INDICATION: Left numbness TECHNIQUE: Axial CT images were obtained through the head after 100 cc Isovue-370 intravenous contras t utilizing angiographic protocol with 3D post-processing (maximum intensity projection images, volume rendered images and/or shaded surface rendered images). One or more of the following dose red uction techniques were used: Automated exposure control, adjustment of the mA and/or kV according to patient size, and/or iterative reconstruction. Unless otherwise specified, incidental findings do not require dedicated imaging follow-up. COMPARISON: None FINDINGS: Distal internal carotid, basilar, anterior cerebral, middle cerebral and posterior cerebral arteries do not demonstrate a significant stenosis An aneurysm not noted. No large vessel occlusion IMPRESSION: No acute vascular abnormality displayed
--- NOTE | 2024-10-11 08:42 | RAD REPORT ---
EXAMINATION: Neck Angio CLINICAL INDICATION: Left numbness TECHNIQUE: Axial CT images were obtained from the aortic arch to the skull base after intravenous adm inistration of 100 cc Isovue-370 utilizing angiographic protocol. Multiplanar reformats, as well as 3D post-processing (maximum intensity projection images, volume rendered images and/or shaded surface rendered images) were generated and reviewed. One or more of the following dose reduction techniques were used: Automated exposure control, adjustment of the mA and/or kV according to patient size, and/or iterative reconstruction. Unless otherwise specified, incidental findings do not require dedicated imaging follow-up. COMPARISON: No prior exam. FINDINGS: The visualized aortic arch and great vessels do not demonstrate a significant abnormality Mild plaque within the common carotid, internal carotid and external carotid arteries bilaterally The vertebral arteries unremarkable. No significant stenosis noted. A dissection is not seen. Methods for NASCET criteria: Mild stenosis, 0% to 49%; Moderate stenosis 50% to 69%; Severe stenosis, 70% to 99% IMPRESSION: No acute vascular abnormality displayed
[2024-10-11 08:44] LABS: Absolute Monocytes 0.3 K/uL (0.1-1.3); Absolute Neutrophil 6.3 K/uL (1.8-8.0); Basophils % 0.3 % (0-1.3); Eosinophils % 0.6 % (0-4.4); Hematocrit 40.1 % (36.0-45.0); Hemoglobin 13.1 g/dL (12.0-15.0); Lymphocytes % 13.6 % (15.3-44.8); MCH 27.3 pg (27.0-35.0); MCHC 32.6 g/dL (32.0-36.0); MCV 83.7 fL (80-100); MPV 7.9 fL (7.6-11.3); Monocytes % 4.2 % (3.3-12.3); Neutrophils % 81.3 % (41.7-73.7); Platelets 237 thou/uL (152-406); RBC Red Blood Cell Count 4.79 M/uL (3.86-4.86); Red Cell Distribution Width 16.1 % (12.1-15.2)
--- NOTE | 2024-10-11 08:44 | RAD REPORT ---
Procedure: Chest Single View HISTORY: Numbness and weakness COMPARISON: 2023 FINDINGS: The lungs appear clear of acute infiltrate. No significant pleural effusion noted. The heart is normal size. Pacemaker leads in place IMPRESSION: No acute abnormality is displayed.
[2024-10-11] MEDS ORDERED: ACETAMINOPHEN 500 MG TAB ONE (08:51)
[2024-10-11 08:58] LABS: Albumin 3.6 g/dL (3.4-5.0); Albumin/Globulin Ratio 0.7 (1.1-1.8); Bilirubin Direct 0.2 mg/dL (0-0.2); Bilirubin Indirect, Calculated 0.3 mg/dL (0.2-0.8); Bilirubin Total 0.5 mg/dL (0.2-1.0); Globulin 4.9 g/dL (2.3-3.5); Protein, Total 8.5 g/dL (6.4-8.2)
[2024-10-11 09:02] LABS: PT Prothrombin Time 11.8 SECONDS (9.4-12.5); PTT, Activated Partial Thromb 34.6 SECONDS (24.3-36.9); Protime INR 1.13
--- NOTE | 2024-10-11 09:22 | EDPHYS ---
Physician Documentation [facility] Name: Shelia Valentine Age: 73 yrs Sex: Female : 1950 Arrival Date: 10/11/2024 Time: 07:52 Bed 8 Private MD: ED Physician Alex Dwyer HPI: 10/11 09:43 This 73 yrs old Female presents to ER via EMS with complaints of Left sided rt pain, Headache, Nausea. 09:44 Patient presents to the ED with a left-sided weakness. States that she first noticed it rt at 2 PM yesterday. Reports a mild headache, nausea but that has improved. States that she has slurred speech. Denies other acute complaints at this time, symptoms are moderate in severity, no other aggravating alleviating factors.. Historical: - Allergies: 07:59 Cipro; ld1 07:59 Codeine; ld1 07:59 Demerol; ld1 07:59 HYDROCODONE; ld1 07:59 Morphine; ld1 07:59 PENICILLINS; ld1 07:59 Sulfa (Sulfonamide Antibiotics); ld1 - PMHx: 07:59 Arthritis; CAD; chest pain; CVA; GERD; High Cholesterol; Hypertension; Kidney stones; ld1 Osteoporosis; Pancreatitis; Sleep Apnea; - PSHx: 07:59 section; ld1 - Immunization history:: Adult Immunizations up to date. - Infectious Disease History:: Denies. - Social history:: Smoking status: Patient denies any tobacco usage or history of. - Family history:: not pertinent. ROS: 09:44 Constitutional: Negative for fever, chills, and weight loss, Cardiovascular: Negative rt for chest pain, palpitations, and edema, Respiratory: Negative for shortness of breath, cough, wheezing, and pleuritic chest pain, Abdomen/GI: Negative for abdominal pain, nausea, vomiting, diarrhea, and constipation, Skin: Negative for injury, rash, and discoloration, :44 Neuro: Positive for speech changes, weakness, Exam: :44 Neuro: Dysarthria noted, no aphasia, no visual field deficits, extraocular muscles are rt intact, 2/5 strength in left upper, left lower extremity, strength intact on the right upper right lower extremities, sensation is intact x 4, :44 Constitutional: This is a well developed, well nourished patient who is awake, alert, rt and in no acute distress. Head/Face: Normocephalic, atraumatic. Chest/axilla: Normal chest wall appearance and motion. Nontender with no deformity. No lesions are appreciated. Cardiovascular: Regular rate and rhythm with a normal S1 and S2. No gallops, murmurs, or rubs. Normal PMI, no JVD. No pulse deficits. Respiratory: Lungs have equal breath sounds bilaterally, clear to auscultation and percussion. No rales, rhonchi or wheezes noted. No increased work of breathing, no retractions or nasal flaring. Abdomen/GI: Soft, non-tender, with normal bowel sounds. No distension or tympany. No guarding or rebound. No evidence of tenderness throughout. Skin: Warm, dry with normal turgor. Normal color with no rashes, no lesions, and no evidence of cellulitis. MS/ Extremity: Pulses equal, no cyanosis. Neurovascular intact. Full, normal range of motion. 09:44 ECG was reviewed by the Attending Physician. rt Vital Signs: 08:00 BP 190 / 88; Pulse 59; Resp 18; Temp 98.1(O); Pulse Ox 100% on R/A; Weight 64.86 kg; ld1 Height 5 ft. 4 in. ; Pain 7/10; 11:34 BP 182 / 73; Pulse 68; Resp 18; Pulse Ox 99% on R/A; ph 12:30 BP 153 / 90; Pulse 63; Resp 18; Pulse Ox 99% on R/A; ph 13:30 BP 164 / 98; Pulse 61; Resp 18; Pulse Ox 97% on R/A; ph 14:30 BP 167 / 100; Pulse 61; Resp 18; Pulse Ox 99% on R/A; ph 08:00 Body Mass Index 24.55 (64.86 kg, 162.56 cm) ld1 08:00 Pain Scale: Adult ld1 MDM: 08:01 Medical Screening Exam initiated rt :44 Differential diagnosis: CVA. Data reviewed: vital signs, nurses notes, lab test rt result(s), EKG, radiologic studies. Consideration of Admission/Observation Patient was admitted/placed on observation. Management of patient was discussed with the following: Hospitalist: Agrees to admit. I considered the following discharge prescriptions or medication management in the emergency department Medications were administered in the Emergency Department. See MAR. Independent interpretation of the following test(s) in the Emergency Department CT Scan: My interpretation is No intracranial hemorrhage syndrome interpretation of CT scan images. Care significantly affected by the following chronic conditions: Hypertension. Response to treatment: There is no appreciated change of the patient's symptoms at this time. ED course: Last known well was greater than 5 hours prior to arrival, is not a candidate for thrombolytics, CT angiogram is negative for large vessel occlusion, does not require endovascular retrieval, will admit for further care.. 10/11 08:10 Order name: Basic Metabolic Panel; Complete Time: 09:07 rt 10/11 08:10 Order name: CBC with Diff; Complete Time: 08:47 rt 10/11 08:10 Order name: Hepatic Function; Complete Time: 09: rt 10/11 08:10 Order name: High Sensitivity Troponin; Complete Time: 09:07 rt 10/11 08:10 Order name: Protime (+inr); Complete Time: 09: rt 10/11 08:10 Order name: Ptt, Activated; Complete Time: 09: rt 10/11 08:51 Order name: CREATININE WHOLE BLOOD; Complete Time: 09:07 EDMS 10/11 10:53 Order name: Anti-Thrombin III Activity EDMS 10/11 10:53 Order name: C-ANCA Anti-Proteinase 3 EDMS 10/11 10:53 Order name: Cardiolipin Antibodies G,M EDMS 10/11 10:53 Order name: Factor V Leiden Mutation EDMS 10/11 10:53 Order name: Homocysteine EDMS 10/11 10:53 Order name: Miscellaneous Test Lab EDMS 10/11 10:53 Order name: P-ANCA Anti-Myeloperoxidase Ab EDMS 10/11 10:53 Order name: Protein C Antigen EDMS 10/11 10:53 Order name: Protein Electo w/M Cornell Serum EDMS 10/11 10:53 Order name: Protein S (Total EDMS 10/11 10:53 Order name: PROTHROMBIN GENE ANALYSIS (F2) EDMS 10/11 10:53 Order name: RPR EDMS 10/11 10:53 Order name: Vitamin B12 Level EDMS 10/11 10:53 Order name: Vitamin D, 25 (OH), TOTAL EDMS 10/11 10:53 Order name: Basic Metabolic Panel EDMS 10/11 10:53 Order name: Basic Metabolic Panel EDMS 10/11 10:53 Order name: Basic Metabolic Panel EDMS 10/11 10:53 Order name: Basic Metabolic Panel EDMS 10/11 10:53 Order name: Basic Metabolic Panel EDMS 10/11 10:53 Order name: Basic Metabolic Panel EDMS 10/11 10:53 Order name: Basic Metabolic Panel EDMS 10/11 10:53 Order name: Basic Metabolic Panel EDMS 10/11 10:53 Order name: CBC with Automated Diff EDMS 10/11 10:53 Order name: CBC with Automated Diff EDMS 10/11 10:53 Order name: CBC with Automated Diff EDMS 10/11 10:53 Order name: CBC with Automated Diff EDMS 10/11 10:53 Order name: CBC with Automated Diff EDMS 10/11 10:53 Order name: CBC with Automated Diff EDMS 10/11 10:53 Order name: CBC with Automated Diff EDMS 10/11 10:53 Order name: CBC with Automated Diff EDMS 10/11 10:53 Order name: Lipid Profile EDMS 10/11 10:53 Order name: Lipid Profile EDMS 10/11 10:53 Order name: Magnesium EDMS 10/11 10:53 Order name: Magnesium EDMS 10/11 10:53 Order name: Magnesium EDMS 10/11 10:53 Order name: Magnesium EDMS 10/11 10:53 Order name: Magnesium EDMS 10/11 10:53 Order name: Magnesium EDMS 10/11 10:53 Order name: Magnesium EDMS 10/11 10:53 Order name: Magnesium EDMS 10/11 10:53 Order name: Phosphorus EDMS 10/11 10:53 Order name: Phosphorus EDMS 10/11 10:53 Order name: Phosphorus EDMS 10/11 10:53 Order name: Phosphorus EDMS 10/11 10:53 Order name: Phosphorus EDMS 10/11 10:53 Order name: Phosphorus EDMS 10/11 10:53 Order name: Phosphorus EDMS 10/11 10:53 Order name: Phosphorus EDMS 10/11 10:53 Order name: T4,Total EDMS 10/11 10:53 Order name: T4,Total EDMS 10/11 10:53 Order name: Thyroid Stimulating Hormone EDMS 10/11 10:53 Order name: Thyroid Stimulating Hormone EDMS 10/11 10:53 Order name: Troponin High Sensitivity EDAR 10/11 10:53 Order name: Troponin High Sensitivity EDAR 10/11 10:53 Order name: Troponin High Sensitivity EDAR 10/11 08:10 Order name: CT Head Angio; Complete Time: 08:47 rt 10/11 08:10 Order name: CT Neck Angio; Complete Time: 08:47 rt 10/11 08:10 Order name: CT Stroke Brain w/o Contrast; Complete Time: 08:47 rt 10/11 08:10 Order name: Stroke CXR 1 View; Complete Time: 08:47 rt 10/11 10:53 Order name: Echo with Doppler EDAR 10/11 10:58 Order name: Foot Left 3 View EDAR 10/11 12:11 Order name: US [facility] 10/11 12:13 Order name: US [facility] 10/11 10:52 Order name: Physical Therapy Consult [facility] 10/11 10:52 Order name: Speech Therapy Consult [facility] 10/11 08:10 Order name: Accucheck; Complete Time: 08:56 rt 10/11 08:10 Order name: Cardiac monitoring; Complete Time: 08:11 rt 10/11 08:10 Order name: EKG - Nurse/Tech; Complete Time: 08:11 rt 10/11 08:10 Order name: IV Saline Lock; Complete Time: 08:56 rt 10/11 08:10 Order name: Labs collected and sent; Complete Time: 08:56 rt 10/11 08:10 Order name: NPO; Complete Time: 08:11 rt 10/11 08:10 Order name: O2 Per Protocol; Complete Time: 08:11 rt 10/11 08:10 Order name: O2 Sat Monitoring; Complete Time: 08:11 rt 10/11 08:10 Order name: Stroke Swallow Screen; Complete Time: 08:56 rt EC:44 Rate is 60 beats/min. Rhythm is regular, Paced with No ectopy. QRS [place] is Normal. MN rt interval is normal. QRS interval is normal. QT interval is normal. No Q waves. Administered Medications: 08:56 Drug: Acetaminophen PO 1000 mg PO once Route: PO; ld1 11:21 Follow up: Response: No adverse reaction ld1 13:30 Drug: Aspirin MN Suppository 300 mg MN once Route: MN; ph 14:00 Follow up: Response: No adverse reaction ph Disposition Summary: 10/11/24 09:21 Hospitalization Ordered Notes: Hospitalization Status: Observation rt Provider: Gorge Perez rt Location: Telemetry/MedSurg (observation) rt Condition: Stable rt Problem: new rt Symptoms: are unchanged rt Bed/Room Type: Standard rt Room Assignment: 221(10/11/24 15:27) em1 Diagnosis - Acute CVA rt Forms: - Medication Reconciliation Form rt - SBAR form rt - Leadership Thank You Letter rt Signatures: Dispatcher [employer] EDMS Lasha Raymundo em1 Frances Morillo, RN RN ph MoralesTracey valencia RN RN ld1 Alex Dwyer MD MD rt Corrections: (The following items were deleted from the chart) 08:10 08:10 Neck Angio+CT.RAD.BRZ ordered. EDMS EDMS 08:10 08:10 CT-STROKE BRAIN W/O CONTRAST+CT.RAD.BRZ ordered. EDMS EDMS 08:10 08:10 Chest Single View+RAD.RAD.BRZ ordered. EDMS EDMS 15:27 09:21 rt em1
--- NOTE | 2024-10-11 09:22 | ER ---
Nurse's Notes [facility] Name: Shelia Valentine Age: 73 yrs Sex: Female : 1950 Arrival Date: 10/11/2024 Time: 07:52 Bed 8 Private MD: Diagnosis: Acute CVA Presentation: 10/11 08:00 Chief complaint: EMS states: toned out for left sided pain, nausea, headache. ld1 Coronavirus screen: At this time, the client does not indicate any symptoms associated with coronavirus-19. Ebola Screen: No symptoms or risks identified at this time. Initial Sepsis Screen: Does the patient meet any 2 criteria? No. Patient's initial sepsis screen is negative. Does the patient have a suspected source of infection? No. Patient's initial sepsis screen is negative. Risk Assessment: Do you want to hurt yourself or someone else? Patient reports no desire to harm self or others. Onset of symptoms was October 11, 2024. 08:00 Method Of Arrival: EMS: [facility] ld1 08:00 Acuity: ADDI 3 ld1 Triage Assessment: 08:00 Headache History: The patient has had previous headaches and this one is similar to ld1 previous episodes. General: Appears in no apparent distress. comfortable. General: Behavior is calm, cooperative, appropriate for age. Pain:. Pain: Complains of pain in face, left foot, left arm and left leg Pain does not radiate. Pain currently is 8 out of 10 on a pain scale. Quality of pain is described as throbbing, Pain began suddenly, Is continuous, Also complains of no other associated symptoms. EENT: No deficits noted. Neuro: Level of Consciousness is awake, alert, obeys commands, Oriented to person, place, time, situation. Cardiovascular: Capillary refill < 3 seconds Patient's skin is warm and dry. Respiratory: Airway is patent Respiratory effort is even, unlabored. GI: Abdomen is flat, non-distended, Reports nausea. : No signs and/or symptoms were reported regarding the genitourinary system. Derm: No signs and/or symptoms reported regarding the dermatologic system. Musculoskeletal: No signs and/or symptoms reported regarding the musculoskeletal system. Historical: - Allergies: 07:59 Cipro; ld1 07:59 Codeine; ld1 07:59 Demerol; ld1 07:59 HYDROCODONE; ld1 07:59 Morphine; ld1 07:59 PENICILLINS; ld1 07:59 Sulfa (Sulfonamide Antibiotics); ld1 - PMHx: 07:59 Arthritis; CAD; chest pain; CVA; GERD; High Cholesterol; Hypertension; Kidney stones; ld1 Osteoporosis; Pancreatitis; Sleep Apnea; - PSHx: 07:59 section; ld1 - Immunization history:: Adult Immunizations up to date. - Infectious Disease History:: Denies. - Social history:: Smoking status: Patient denies any tobacco usage or history of. - Family history:: not pertinent. Screenin:03 [facility] ED Fall Risk Assessment (Adult) History of falling in the last 3 months, ld1 including since admission No falls in past 3 months (0 pts) Confusion or Disorientation No (0 pts) Intoxicated or Sedated No (0 pts) Impaired Gait No (0 pts) Mobility Assist Device Used No (0 pt) Altered Elimination No (0 pt) Score/Fall Risk Level 0 - 2 = Low Risk Oriented to surroundings, Maintained a safe environment, Educated pt \T\ family on fall prevention, incl call for assistance when getting out of bed, Assessed \T\ reinforced patient's understanding of fall precautions, Provided non-skid footwear, Hourly rounding (assess needs \T\ fall precautionary measures) done, Used ambulatory aids as needed (educated on \T\ assisted with), Used gait belt as appropriate. Abuse screen: Denies threats or abuse. Denies injuries from another. Nutritional screening: No deficits noted. Tuberculosis screening: No symptoms or risk factors identified. 08:55 Sandy Swallow Protocol Brief Cognitive Screen What is your name? Normal, Where are you ld1 right now? Normal, What year is it? Normal. Oral Mechanism Examination Facial Symmetry: Normal, Motion: Normal, Lip Closure: Normal, 3 oz Water Swallow Challenge: Pt able to drink all water without stopping, coughing, choking or throat clearing: No Result: FAIL Notified: Alex Dwyer MD. Assessment: 08:03 Reassessment: See triage assessment. Pain: Complains of pain in left foot, left arm and ld1 left leg. 08:16 Reassessment: Pt taken to CT. ph 08:55 Reassessment:. ld1 08:56 Reassessment: Pt did not pass swallow screen. Notified ERP. ld1 10:00 Reassessment: Patient appears in no apparent distress at this time. No changes from previously documented assessment. Patient and/or family updated on plan of care and expected duration. Pain level reassessed. Patient is alert, oriented x 3, equal unlabored respirations, skin warm/dry/pink. 12:00 Reassessment: Patient appears in no apparent distress at this time. Patient and/or ph family updated on plan of care and expected duration. Pain level reassessed. Patient is alert, oriented x 3, equal unlabored respirations, skin warm/dry/pink. Vital Signs: 08:00 BP 190 / 88; Pulse 59; Resp 18; Temp 98.1(O); Pulse Ox 100% on R/A; Weight 64.86 kg; ld1 Height 5 ft. 4 in. ; Pain 7/10; 11:34 BP 182 / 73; Pulse 68; Resp 18; Pulse Ox 99% on R/A; ph 12:30 BP 153 / 90; Pulse 63; Resp 18; Pulse Ox 99% on R/A; ph 13:30 BP 164 / 98; Pulse 61; Resp 18; Pulse Ox 97% on R/A; ph 14:30 BP 167 / 100; Pulse 61; Resp 18; Pulse Ox 99% on R/A; ph 08:00 Body Mass Index 24.55 (64.86 kg, 162.56 cm) ld1 08:00 Pain Scale: Adult ld1 Vitals: 14:30 Cardiac Rhythm Assessment Paced. ED Course: 07:58 Patient arrived in ED. ld1 07:59 Alex Dwyer MD is Attending Physician. rt 08:00 Arm band placed on right wrist. ld1 08:01 Triage completed. ld1 08:03 Patient has correct armband on for positive identification. Placed in gown. Bed in low ld1 position. Call light in reach. Side rails up X2. Pulse ox on. NIBP on. Door closed. Noise minimized. 08:03 No provider procedures requiring assistance completed. ld1 08:20 CT Stroke Brain w/o Contrast In Process Unspecified. EDMS 08:30 CT Head Angio In Process Unspecified. EDMS 08:30 CT Neck Angio In Process Unspecified. EDMS 08:35 Initial lab(s) drawn, by ED staff, sent to lab. Inserted saline lock: 22 gauge in right ty antecubital area, using aseptic technique. Blood collected. Flushed with 10 mL NS. 08:38 Stroke CXR 1 View In Process Unspecified. EDMS 08:55 Tracey Morales, RN is Primary Nurse. ld1 09:19 Gorge Perez is Hospitalizing Provider. rt 10:57 IV discontinued, intact, bleeding controlled, No redness/swelling at site. Pressure ld1 dressing applied. 11:34 Initial lab(s) drawn, by me, sent to lab. Inserted saline lock: 22 gauge in right ph wrist, using aseptic technique. Blood collected. Flushed with 10 mL NS. Administered Medications: 08:56 Drug: Acetaminophen PO 1000 mg PO once Route: PO; ld1 11:21 Follow up: Response: No adverse reaction ld1 13:30 Drug: Aspirin TX Suppository 300 mg TX once Route: TX; ph 14:00 Follow up: Response: No adverse reaction ph Medication: 08:03 VIS not applicable for this client. ld1 Outcome: 09:21 Decision to Hospitalize by Provider. rt 15:00 Admitted to ER Hold. Please see [facility] for further documentation. ph 15:00 Condition: stable 15:00 Instructed on the need for admit, 16:52 Patient left the ED. ph Signatures: Dispatcher [employer] Frances Pagan RN RN ph Tracey Morales RN RN ld1 Alex Dwyer MD MD rt Pito Rowell Corrections: (The following items were deleted from the chart) 14:57 14:56 Aspirin TX Suppository 300 mg TX ph ph
--- NOTE | 2024-10-11 10:01 | P.HP ---
Certification for Inpatient Patient admitted to: Observation With expected LOS: <2 Midnights Practitioner: I am a practitioner with admitting privileges, knowledge of patient current condition, hospital course, and medical plan of care. Services: Services provided to patient in accordance with Admission requirements found in Title 42 Section 412.3 of the Code of Federal Regulations Patient History Date of Service: 10/11/24 Reason for admission: CVA r/o History of Present Illness: Richard Valentine is a 73 year old female with Pmhx arthritis, CAD, CVA, GERD, hypertension, pancreatitis, sleep apnea, chest pain, high cholesterol who presents to the ED with chief complaint of headache nausea and left-sided pain. On evaluation she reports having paralysis to her left side in the past and is now wheelchair-bound but able to transfer. Her chief complaint was left leg pain radiating to her foot with most pain located in the plantar area. Laboratory evaluation within normal limits. On examination she has slurred speech, left facial numbness, left sided weakness she reports is the same, and left leg pain. Initial vitals BP 190 / 88; Pulse 59; Resp 18; Temp 98.1(O); Pulse Ox 100% on R/A CT head, CTA head/neck and chest xray reports no acute findings. Shelia will be admitted to hospitalist service for further evaluation and treatment of CVA r/o and left leg pain. Allergies codeine [Codeine] Allergy (Mild, Verified 09/22/19 06:34) Hives/Rash Penicillins Allergy (Mild, Verified 09/22/19 06:34) Hives/Rash meperidine [From Demerol] Allergy (Verified 09/22/19 06:34) Unknown morphine Allergy (Verified 09/22/19 06:34) Nausea/Vomiting ciprofloxacin [From Cipro] Adverse Reaction (Mild, Verified 09/22/19 06:34) Itching/Hives/Rash hydrocodone Adverse Reaction (Mild, Verified 09/22/19 06:34) Nausea/Vomiting Sulfa (Sulfonamide Antibiotics) [Sulfa(Sulfonamide Antibiotics)] Adverse Reaction (Mild, Verified 09/22/19 06:34) vomitting Home Medications: Atorvastatin Calcium 1 tab PO DAILY 10/11/24 Duloxetine HCl 1 cap PO DAILY 10/11/24 Lisinopril [Zestril] 1 tab PO DAILY 10/11/24 Metformin ER [Glucophage ER*] 1 tab PO DAILY 10/11/24 Ondansetron [Ondansetron Odt] 1 tab PO PRN PRN 10/11/24 Pantoprazole [Protonix Tab*] 40 mg PO DAILY 10/11/24 Trazodone HCl 100 mg PO BEDTIME 10/11/24 carvediloL [Carvedilol] 12.5 mg PO DAILY 10/11/24 oxyBUTYnin chloride [Oxybutynin Chloride] 5 mg PO DAILY 10/11/24 - Past Medical/Surgical History Diabetic: No -: CAD, Cardiology-Dr. Rodgers -: GERD with hiatal hernia -: HTN/HLD -: Cervical Radiculopathy 2013 -: Bradycardia, pacemaker placement -: History of pancreatitis -: Liver cyst -: Left adrenal adenoma -: Left ovarian cyst -: arthritis -: CVA -: Pacemaker placement -: Cholecystectomy -: x4 Psychosocial/ Personal History: . She currently lives by herself. She has 3 children. - Family History Mother -: Hypertension, Diabetes Notes: obese - Social History Smoking Status: Never smoker Alcohol use: No CD- Drugs: No Caffeine use: Yes Review of Systems Musculoskeletal: Other (Left leg pain) Physical Examination - Physical Exam General: Alert, In no apparent distress, Oriented x3 HEENT: Atraumatic, Normocephalic, PERRLA Neck: Supple, JVD not distended Respiratory: Clear to auscultation bilaterally, Normal air movement Cardiovascular: Normal pulses, Regular rate/rhythm, Normal S1 S2 Capillary refill: <2 Seconds Gastrointestinal: Normal bowel sounds, Soft and benign Musculoskeletal: No clubbing Integumentary: No rashes Neurological: Normal speech, Normal tone - Studies Laboratory Data (last 24 hrs) 10/11/24 10/11/24 10/11/24 08:32 08:32 08:32 WBC 7.70 Hgb 13.1 Hct 40.1 Plt Count 237 PT 11.8 INR 1.13 APTT 34.6 Sodium 138 Potassium 4.0 BUN 14 Creatinine 0.83 Glucose 111 H Total Bilirubin 0.5 AST 16 ALT 16 Alkaline Phosphatase 70 Assessment and Plan - Plan Assessment and plan CVA rule out History of left-sided deficit - Consulted Neurology - recommendations appreciated - Admit under observation status -No neurologic deficits on my exam - NIHSS = 1 - Allow permissive hypertension for tonight - q4hr neurochecks -CT head, CTA head/neck and chest xray reports no acute findings. -No MRI due to pacemaker - Ordered TTE - PT/OT evaluation requested - Ordered risk profile: Hgb A1c, lipid panel, TSH - Started aspirin, folic acid, atorvastatin Left leg pain -Ultrasound venous and arterial with no acute findings -X-ray left leg showing osteoporosis and calcaneal spurs arthritis CAD GERD hypertension pancreatitis sleep apnea chest pain high cholesterol -Continue home medication -Supportive care DVT PPx Lovenox Full code LOS 24-hour OBS Discharge Plan: Home Plan to discharge in: 24 Hours - Advance Directives Does patient have a Living Will: No Does patient have a Durable POA for Healthcare: No
--- NOTE | 2024-10-11 12:11 | RAD REPORT ---
EXAM:Extremity Venous Uni Ltd HISTORY: Left leg pain and swelling TECHNIQUE: Sonographic evaluation left lower extremity performed.Grayscale, color and spectral analys is performed on all vessels COMPARISON: 2019. FINDINGS: Left common femoral, superficial femoral, greater saphenous, popliteal and posterior tibial veins are compressible and demonstrate augmentation. Doppler demonstrates good flow. IMPRESSION: No evidence of deep venous thrombosis involving the left lower extremity.
--- NOTE | 2024-10-11 12:13 | RAD REPORT ---
EXAM:Lower Extremity Artery Uni Ltd HISTORY: leg pain and swelling. decreased capillary refill TECHNIQUE: Sonographic evaluation lower extremity arteries performed.Grayscale, color and spectral analysis performed on all vessels COMPARISON: None. FINDINGS: Left common femoral arterial waveform triphasic Left superficial femoral, popliteal, posterior tibial and dorsalis pedis arterial waveforms are bipha sic No high-grade stenosis/occlusion IMPRESSION: Mild left lower extremity arterial disease
[2024-10-11] MEDS: ASPIRIN 300 MG/SUPP PR ONE (12:15)
--- NOTE | 2024-10-11 12:26 | RAD REPORT ---
Exam:Foot Left 3 View CLINICAL HISTORY: Left foot pain FINDINGS: No fracture or dislocation seen The bones are osteoporotic. Calcaneal spurs
[2024-10-11] MEDS: ACETAMINOPHEN 500 MG TAB PO PRN (18:51)
[2024-10-11] MEDS: NA CHLORIDE 0.9% 1,000 ML IV SCH (18:52)
[2024-10-11] MEDS ORDERED: PNEUMOCOCCAL VACCINE 0.5 ML IMVAC ONE (19:00)
[2024-10-11] MEDS ORDERED: FLU (Fluarix Triv) TS24-25(6MOS UP)/PF 45 MCG/0.5 ML Syringe IM ONE (19:00)
[2024-10-11] MEDS: ATORVASTATIN 40 MG TAB PO SCH (21:13)
[2024-10-11] MEDS: KETOROLAC 30 MG/ML INJ IV PRN (21:49)
[2024-10-11] MEDS: ONDANSETRON 4 MG/2 ML VIAL IV PRN (21:50)
[2024-10-12 05:30] LABS: RPR (Rapid Plasma Reagin) NON-REACT (NON-REACT)
[2024-10-12 07:26] LABS: Absolute Lymphocytes (CBC) 1.2 K/uL (0.7-4.9); Absolute Monocytes 0.5 K/uL (0.1-1.3); Absolute Neutrophil 3.8 K/uL (1.8-8.0); Basophils % 0.3 % (0-1.3); Eosinophils % 0.9 % (0-4.4); Hematocrit 35.6 % (36.0-45.0); Hemoglobin 11.6 g/dL (12.0-15.0); Lymphocytes % 22.3 % (15.3-44.8); MCH 27.4 pg (27.0-35.0); MCHC 32.7 g/dL (32.0-36.0); Monocytes % 8.2 % (3.3-12.3); Neutrophils % 68.3 % (41.7-73.7); Platelets 191 thou/uL (152-406); RBC Red Blood Cell Count 4.24 M/uL (3.86-4.86); Red Cell Distribution Width 15.9 % (12.1-15.2)
[2024-10-12 07:39] LABS: Anion Gap 6.6 mEq/L (5.0-15.0); Magnesium 2.2 mg/dL (1.6-2.4); Phosphorus 3.1 mg/dL (2.5-4.9); Potassium 3.6 mEq/L (3.5-5.1); Thyroid Stimulating Hormone 1.83 uIU/mL (0.358-3.740)
[2024-10-12 07:57] LABS: T4,Total 8.5 ug/dL (4.8-13.9)
[2024-10-12] MEDS: ENOXAPARIN 40 MG/0.4 ML SQ SCH (08:23)
[2024-10-12] MEDS: carvediloL 12.5 MG TAB PO SCH (08:24)
[2024-10-12] MEDS: METFORMIN ER 500 MG TAB PO SCH (08:24)
[2024-10-12] MEDS: PANTOPRAZOLE 40MG TABLET PO SCH (08:25)
[2024-10-12] MEDS: ASPIRIN EC 81 MG TAB PO SCH (08:25)
[2024-10-12] MEDS: FOLIC ACID 1 MG TABLET PO SCH (08:25)
[2024-10-12] MEDS: DULOXETINE 30 MG CAP PO SCH (08:25)
[2024-10-12] MEDS ORDERED: ATORVASTATIN 40 MG TAB PO SCH (09:00)
--- NOTE | 2024-10-12 12:16 | P.PN ---
Date of Service: 10/12/24 Subjective Awake, conversing well no new complaints Physical therapy in the room to work with her Passed speech evaluation Awaiting placement ROS 10 point ROS as noted above, otherwise negative Physical Exam General: Alert and Oriented x3, NAD HEENT: Atraumatic, Normocephalic, PERRLA Neck: Supple, JVD not distended Respiratory: Clear to auscultation bilaterally, Normal air movement Cardiovascular: Normal pulses, paced rhythm- heart rate 58, Normal S1 S2 Capillary refill: <2 Seconds Gastrointestinal: Normal bowel sounds, Soft and benign on palpation Musculoskeletal: No clubbing Integumentary: No rashes Neurological: Normal speech, Normal tone Vitals Reviewed Problem list CVA rule out History of left-sided deficit Left leg pain arthritis CAD GERD hypertension pancreatitis sleep apnea chest pain high cholesterol Assessment and Plan CVA rule out History of left-sided deficit - Consulted Neurology - recommendations appreciated - Admit under observation status -Chronic left sided weakness- NIHSS = 10 - Allow permissive hypertension for tonight - q4hr neurochecks -CT head, CTA head/neck and chest xray reports no acute findings. -No MRI due to pacemaker - Ordered TTE - PT/OT evaluation requested - Ordered risk profile: Hgb A1c, lipid panel triglyceride 71, cholesterol 73, LDL 16, HDL 43, TSH/Free T4 1.30 0/8.5 - Started aspirin, folic acid, atorvastatin Left leg pain -Ultrasound venous and arterial with no acute findings -X-ray left leg showing osteoporosis and calcaneal spurs arthritis CAD GERD hypertension pancreatitis sleep apnea chest pain high cholesterol -Continue home medication -Supportive care DVT PPx Lovenox Full code LOS 24-hour OBS Discharge Plan: Home Plan to discharge in: 24 Hours
[2024-10-12] MEDS: PROMETHAZINE INJ 25 MG/ML AMP IV PRN (14:20)
[2024-10-12] MEDS: HYDROMORPHONE HCL 1 MG/ML INJ IV PRN (14:20)
[2024-10-12 15:17] VITALS: BMI 24.9
--- NOTE | 2024-10-12 15:47 | ECHO ---
HEIGHT: 5 ft 4 in WEIGHT: 145 lb 0 oz DATE OF STUDY: 10/12/[address]: Angie Lee NP 2-DIMENSIONAL: YES M.MODE: YES DOPPLER: YES COLOR FLOW: YES TDS: NO PORTABLE: YES DEFINITY: NO BUBBLE STUDY: NO DIAGNOSIS: STROKE CARDIAC HISTORY: CATHERIZATION: SURGERY: PROSTHETIC VALVE: PACEMAKER: MEASUREMENTS (cm) DIASTOLIC (NORMALS) SYSTOLIC (NORMALS) IVSd 0.9 (0.6-1.2) LA Diam 4.1 (1.9-4.0) LVEF 60-65% LVIDd 4.3 (3.5-5.7) LVIDs 2.9 (2.0-3.5) %FS 33% LVPWd 1.0 (0.6-1.2) Ao Diam 2.7 (2.0-3.7) 2 DIMENSIONAL ASSESSMENT: RIGHT ATRIUM: NORMAL LEFT ATRIUM: ENLARGED MILDLY RIGHT VENTRICLE: PACEMAKER WIRE LEFT VENTRICLE: NORMAL TRICUSPID VALVE: MILD TRICUSPID REGURGITATION MITRAL VALVE: MILD MITRAL REGURGITATION PULMONIC VALVE: NORMAL AORTIC VALVE: NORMAL PERICARDIAL EFFUSION: TRIVIAL AORTIC ROOT: NORMAL LEFT VENTRICULAR WALL MOTION: NORMAL. DOPPLER/COLOR FLOW: SEE BELOW. COMMENTS: 1. NORMAL LEFT VENTRICULAR EJECTION FRACTION 60-65% WITH NORMAL WALL MOTION. 2. GRADE I DIASTOLIC DYSFUNCTION. 3. MILD TRICUSPID AND MITRAL REGURGITATION. 4. MILD LEFT ATRIAL ENLARGEMENT. TECHNOLOGIST: TERRY PRICE [facility]
[2024-10-13 08:44] LABS: Absolute Lymphocytes (CBC) 1.2 K/uL (0.7-4.9); Absolute Monocytes 0.5 K/uL (0.1-1.3); Absolute Neutrophil 4.2 K/uL (1.8-8.0); Basophils % 0.4 % (0-1.3); Eosinophils % 0.6 % (0-4.4); Hematocrit 32.6 % (36.0-45.0); Hemoglobin 10.7 g/dL (12.0-15.0); Lymphocytes % 19.9 % (15.3-44.8); MCH 27.5 pg (27.0-35.0); MCHC 32.8 g/dL (32.0-36.0); MCV 83.7 fL (80-100); MPV 7.9 fL (7.6-11.3); Monocytes % 7.9 % (3.3-12.3); Neutrophils % 71.2 % (41.7-73.7); Platelets 176 thou/uL (152-406); Red Cell Distribution Width 15.8 % (12.1-15.2)
[2024-10-13 08:56] LABS: Anion Gap 5.6 mEq/L (5.0-15.0); Magnesium 2.1 mg/dL (1.6-2.4); Phosphorus 2.6 mg/dL (2.5-4.9); Potassium 3.6 mEq/L (3.5-5.1)
[2024-10-13] MEDS ORDERED: UBRELVY 50 MG PO PRN (13:56)
[2024-10-13] MEDS: QULIPTA 60 MG PO SCH (14:29)
--- NOTE | 2024-10-13 17:27 | P.PN ---
Date of Service: 10/13/24 Subjective Very talkative this morning reports migraines, likely a cause for weakness Awaiting placement ROS 10 point ROS as noted above, otherwise negative Physical Exam General: AAO x3, NAD HEENT: Atraumatic, Normocephalic, PERRLA Neck: Supple, JVD not distended Respiratory: Clear BBS, Normal air movement, on RA Cardiovascular: Normal pulses, paced rhythm- heart rate 60, Normal S1 S2 Capillary refill: <2 Seconds Gastrointestinal: Normal bowel sounds, Soft on palpation, nontender Musculoskeletal: No clubbing Integumentary: No rashes Neurological: Normal speech, Normal tone Vitals Reviewed Problem list CVA rule out History of left-sided deficit Left leg pain arthritis CAD GERD hypertension pancreatitis sleep apnea chest pain high cholesterol Assessment and Plan CVA rule out History of left-sided deficit History of Migraines - Consulted Neurology - recommendations appreciated - Admit under observation status -Chronic left sided weakness- NIHSS = 10 - Allow permissive hypertension for tonight - q4hr neurochecks -CT head, CTA head/neck and chest xray reports no acute findings. -No MRI due to pacemaker - TTE reports EF 60 to 65%, mild left atrial enlargement, mild tricuspid and mitral regurgitation, grade 1 diastolic dysfunction, pacing wires in place" - PT/OT evaluation requested - Ordered risk profile: Hgb A1c 5.6, lipid panel triglyceride 71, cholesterol 73, LDL 16, HDL 43, TSH/Free T4 1.30 0/8.5 - Started aspirin, folic acid, atorvastatin Left leg pain -Ultrasound venous and arterial with no acute findings -X-ray left leg showing osteoporosis and calcaneal spurs arthritis CAD GERD hypertension pancreatitis sleep apnea chest pain high cholesterol -Continue home medication -Supportive care DVT PPx Lovenox Full code LOS 24-hour OBS Discharge Plan: Home Plan to discharge in: 24 Hours
[2024-10-14] MEDS: HYDRALAZINE HCL 20 MG/ML VIAL IV ONE (00:29)
[2024-10-14 07:49] LABS: Abnormal Protein Band 1 REPORT; Albumin, (SPE) 3.5 g/dL (3.8-4.8); Alpha-1-Globulins 0.3 g/dL (0.2-0.3); Alpha-2-Globulins 0.9 g/dL (0.5-0.9); Beta 1 Globulin 0.4 g/dL (0.4-0.6); Gamma Globulins 1.8 g/dL (0.8-1.7); INTERPRETATION REPORT; Total Protein 7.2 g/dL (6.1-8.1)
[2024-10-14 09:52] LABS: Absolute Eosinophils 0.1 K/uL (0-0.5); Absolute Lymphocytes (CBC) 1.2 K/uL (0.7-4.9); Absolute Monocytes 0.6 K/uL (0.1-1.3); Absolute Neutrophil 5.1 K/uL (1.8-8.0); Basophils % 0.3 % (0-1.3); Eosinophils % 0.7 % (0-4.4); Hematocrit 36.2 % (36.0-45.0); Hemoglobin 11.9 g/dL (12.0-15.0); Lymphocytes % 17.8 % (15.3-44.8); MCH 27.6 pg (27.0-35.0); MCHC 32.8 g/dL (32.0-36.0); MPV 8.1 fL (7.6-11.3); Monocytes % 8.6 % (3.3-12.3); Neutrophils % 72.6 % (41.7-73.7); Platelets 198 thou/uL (152-406); Red Cell Distribution Width 16.4 % (12.1-15.2)
[2024-10-14 10:00] LABS: Anion Gap 6.9 mEq/L (5.0-15.0); Phosphorus 2.7 mg/dL (2.5-4.9); Potassium 3.9 mEq/L (3.5-5.1)
[2024-10-14 10:44] LABS: C-ANCA Anti-Proteinase 3 <1.0 AI (<1.0); P-ANCA Anti-Myeloperoxidase Ab <1.0 AI (<1.0)
--- NOTE | 2024-10-14 17:44 | P.PN ---
Date of Service: 10/14/24 Subjective Continues to have a headache, relief after medication Speech and facial expressions symmetrical Hypertensive, stopped IVF Awaiting placement ROS 10 point ROS as noted above, otherwise negative Physical Exam General: Alert and oriented x3, NAD, conversing well HEENT: Atraumatic, Normocephalic, PERRLA Neck: Supple, JVD not distended Respiratory: Clear BBS, Normal air movement, on RA Cardiovascular: Normal pulses, paced rhythm- heart rate 70, Normal S1 S2 Capillary refill: <2 Seconds Gastrointestinal: Normal active bowel sounds, Soft , nontender Musculoskeletal: No clubbing Integumentary: No rashes Neurological: Normal speech, Normal tone Vitals Reviewed Problem list CVA rule out History of left-sided deficit Left leg pain arthritis CAD GERD hypertension pancreatitis sleep apnea chest pain high cholesterol Assessment and Plan CVA rule out History of left-sided deficit History of Migraines, suspect complex migraine - Consulted Neurology - recommendations appreciated - Admit under observation status -Chronic left sided weakness- NIHSS = 10 - Allow permissive hypertension for tonight - q4hr neurochecks -CT head, CTA head/neck and chest xray reports no acute findings. -No MRI due to pacemaker - TTE reports EF 60 to 65%, mild left atrial enlargement, mild tricuspid and mitral regurgitation, grade 1 diastolic dysfunction, pacing wires in place" - PT/OT evaluation requested - Ordered risk profile: Hgb A1c 5.6, lipid panel triglyceride 71, cholesterol 73, LDL 16, HDL 43, TSH/Free T4 1.30 0/8.5 - continue aspirin, folic acid, atorvastatin - Ubrelvy PRN, and Qulipta daily Left leg pain -Ultrasound venous and arterial with no acute findings -X-ray left leg showing osteoporosis and calcaneal spurs arthritis CAD GERD hypertension pancreatitis sleep apnea chest pain high cholesterol -Continue home medication -Supportive care DVT PPx Lovenox Full code LOS 24-hour OBS Discharge Plan: Home Plan to discharge in: 24 Hours <Angie Lee - Last Filed: 10/14/24 17:38> Patient seen and examined, plan of care discussed with Jesus. Patient slurred speech significantly improved. She has been experiencing migraine headaches associated with vomiting which have also improved. Patient new neurologic symptoms-slurred speech and left-sided numbness probably related to complex migraine. Head CT did not show any acute stroke. Patient migraine headaches is responding well to Ubrelvy and Qulipta. She is also probably does not and hydromorphone as needed. Continue PT. <margarette cherry - Last Filed: 10/14/24 19:01>
[2024-10-14] MEDS: HYDRALAZINE HCL 20 MG/ML VIAL IV PRN (18:10)
[2024-10-14] MEDS: AMLODIPINE 5 MG TAB PO SCH (20:23)
[2024-10-15 06:58] LABS: Absolute Lymphocytes (CBC) 1.2 K/uL (0.7-4.9); Absolute Monocytes 0.5 K/uL (0.1-1.3); Absolute Neutrophil 3.7 K/uL (1.8-8.0); Basophils % 0.2 % (0-1.3); Eosinophils % 0.1 % (0-4.4); Hematocrit 37.9 % (36.0-45.0); Hemoglobin 12.3 g/dL (12.0-15.0); Lymphocytes % 21.8 % (15.3-44.8); MCH 27.3 pg (27.0-35.0); MCHC 32.4 g/dL (32.0-36.0); MCV 84.3 fL (80-100); MPV 7.8 fL (7.6-11.3); Monocytes % 9.5 % (3.3-12.3); Neutrophils % 68.4 % (41.7-73.7); Platelets 202 thou/uL (152-406); Red Cell Distribution Width 16.1 % (12.1-15.2)
[2024-10-15 07:15] LABS: Anion Gap 8.6 mEq/L (5.0-15.0); Phosphorus 2.7 mg/dL (2.5-4.9); Potassium 3.6 mEq/L (3.5-5.1)
[2024-10-15 13:23] LABS: Protein C Antigen 106 % normal (70-140)
[2024-10-15] MEDS: MAGNESIUM HYDROXIDE 8% 30 ML PO ONE (17:09)
--- NOTE | 2024-10-15 20:46 | P.PN ---
Date of Service: 10/15/24 Subjective Sleeping comfortable easily awakens continue to c/o a headache still hypertensive Awaiting placement ROS 10 point ROS as noted above, otherwise negative Physical Exam General: AAO x3, NAD, conversing well HEENT: Atraumatic, Normocephalic, PERRLA Neck: Supple, JVD not distended Respiratory: Symmetrical chest wall movement, Normal air movement, on RA Cardiovascular: Normal pulses, paced rhythm, Normal S1 S2 Capillary refill: <2 Seconds Gastrointestinal: bowel sounds active, Soft on palpation, nontender Musculoskeletal: No clubbing Integumentary: No rashes Neurological: Normal speech, Normal tone Vitals Reviewed Problem list CVA rule out History of left-sided deficit Left leg pain arthritis CAD GERD hypertension pancreatitis sleep apnea chest pain high cholesterol Assessment and Plan CVA rule out History of left-sided deficit History of Migraines, suspect complex migraine - Consulted Neurology - recommendations appreciated - Admit under observation status -Chronic left sided weakness- NIHSS = 10 - Allow permissive hypertension for tonight - q4hr neurochecks -CT head, CTA head/neck and chest xray reports no acute findings. -No MRI due to pacemaker - TTE reports EF 60 to 65%, mild left atrial enlargement, mild tricuspid and mitral regurgitation, grade 1 diastolic dysfunction, pacing wires in place" - PT/OT evaluation requested - Ordered risk profile: Hgb A1c 5.6, lipid panel triglyceride 71, cholesterol 73, LDL 16, HDL 43, TSH/Free T4 1.30 0/8.5 - continue aspirin, folic acid, atorvastatin - Ubrelvy PRN, and Qulipta daily Left leg pain -Ultrasound venous and arterial with no acute findings -X-ray left leg showing osteoporosis and calcaneal spurs arthritis CAD GERD hypertension pancreatitis sleep apnea chest pain high cholesterol -Continue home medication -Supportive care DVT PPx Lovenox Full code LOS 24-hour OBS Discharge Plan: Home Plan to discharge in: 24 Hours
[2024-10-15 23:54] VITALS: O2SAT 94
[2024-10-16 07:04] LABS: Absolute Basophils 0.1 K/uL (0-0.5); Absolute Lymphocytes (CBC) 1.8 K/uL (0.7-4.9); Absolute Monocytes 0.6 K/uL (0.1-1.3); Absolute Neutrophil 4.4 K/uL (1.8-8.0); Basophils % 0.8 % (0-1.3); Eosinophils % 0.2 % (0-4.4); Hematocrit 38.6 % (36.0-45.0); Hemoglobin 12.5 g/dL (12.0-15.0); Lymphocytes % 26.6 % (15.3-44.8); MCH 27.4 pg (27.0-35.0); MCHC 32.3 g/dL (32.0-36.0); MCV 84.7 fL (80-100); MPV 7.5 fL (7.6-11.3); Monocytes % 8.8 % (3.3-12.3); Neutrophils % 63.6 % (41.7-73.7); Nucleated Red Blood Cells % 0.1 % (0-0); Platelets 240 thou/uL (152-406); RBC Red Blood Cell Count 4.56 M/uL (3.86-4.86); Red Cell Distribution Width 16.4 % (12.1-15.2)
[2024-10-16 07:21] LABS: Anion Gap 8.6 mEq/L (5.0-15.0); Magnesium 2.4 mg/dL (1.6-2.4); Phosphorus 3.4 mg/dL (2.5-4.9); Potassium 3.6 mEq/L (3.5-5.1)
[2024-10-16] MEDS: POTASSIUM 25 MEQ EFFERV TAB PO ONE (10:08)
[2024-10-16] MEDS: POLYETHYL GLY 3350 17 GM/DOSE PO ONE (10:08)
--- NOTE | 2024-10-16 14:51 | P.PN ---
Date of Service: 10/16/24 Subjective Improving C/O constipation No other acute events overnight ROS 10 point ROS as noted above, otherwise negative Physical Exam General: AAO x3, NAD, conversing well HEENT: Atraumatic, Normocephalic, PERRLA Neck: Supple, JVD not distended Respiratory: Symmetrical chest wall movement, Normal air movement, on RA Cardiovascular: Normal pulses, paced rhythm, Normal S1 S2 Capillary refill: <2 Seconds Gastrointestinal: bowel sounds active, Soft on palpation, nontender Musculoskeletal: No clubbing Integumentary: No rashes Neurological: Normal speech, left sided paralysis from previous cva Vitals Reviewed Problem list CVA rule out History of left-sided deficit Left leg pain arthritis CAD GERD hypertension pancreatitis sleep apnea chest pain high cholesterol Plan CVA rule out History of left-sided deficit History of Migraines, suspect complex migraine -Consulted Neurology - recommendations appreciated -Admit under observation status -Chronic left sided weakness- NIHSS = 10 -q4hr neurochecks -CT head, CTA head/neck and chest xray reports no acute findings. -No MRI due to pacemaker -TTE reports EF 60 to 65%, mild left atrial enlargement, mild tricuspid and mitral regurgitation, grade 1 diastolic dysfunction, pacing wires in place" -PT/OT evaluation requested -Ordered risk profile: Hgb A1c 5.6, lipid panel triglyceride 71, cholesterol 73, LDL 16, HDL 43, TSH/Free T4 1.30 0/8.5 -continue aspirin, folic acid, atorvastatin -Ubrelvy PRN, and Qulipta daily Left leg pain -Ultrasound venous and arterial with no acute findings -X-ray left leg showing osteoporosis and calcaneal spurs arthritis CAD GERD hypertension pancreatitis sleep apnea chest pain high cholesterol -Continue home medication -Supportive care DVT PPx Lovenox Full code SNF 1-2 days
[2024-10-16 21:48] LABS: Anti-Thrombin III Activity 107 % normal (80-135)
[2024-10-17 05:35] LABS: Absolute Eosinophils 0.1 K/uL (0-0.5); Absolute Lymphocytes (CBC) 1.7 K/uL (0.7-4.9); Absolute Monocytes 0.7 K/uL (0.1-1.3); Absolute Neutrophil 4.5 K/uL (1.8-8.0); Basophils % 0.7 % (0-1.3); Eosinophils % 1.1 % (0-4.4); Hematocrit 36.8 % (36.0-45.0); Hemoglobin 11.9 g/dL (12.0-15.0); Lymphocytes % 24.7 % (15.3-44.8); MCH 27.2 pg (27.0-35.0); MCHC 32.3 g/dL (32.0-36.0); MCV 84.2 fL (80-100); MPV 7.8 fL (7.6-11.3); Monocytes % 9.6 % (3.3-12.3); Neutrophils % 63.9 % (41.7-73.7); Platelets 198 thou/uL (152-406); RBC Red Blood Cell Count 4.37 M/uL (3.86-4.86); Red Cell Distribution Width 16.8 % (12.1-15.2)
[2024-10-17 06:02] LABS: Magnesium 2.4 mg/dL (1.6-2.4); Phosphorus 3.7 mg/dL (2.5-4.9)
[2024-10-17 12:03] VITALS: BP 101/59; TEMP 98.3
--- NOTE | 2024-10-17 12:52 | EKG ---
Test Date: 2024-10-11 Test Time: 08:57:07 Museum Archivist: ALBINO MEASUREMENT RESULTS: Intervals: Rate: 60 MA: 206 QRSD: 162 QT: 510 QTc: 510 [place]: P: 52 MA: 206 QRS: 74 T: 59 INTERPRETIVE STATEMENTS: AV sequential or dual chamber electronic pacemaker Compared to ECG 07/31/2023 04:17:19 Atrial-paced complex(es) or rhythm no longer present Electronically Signed On 10-17-24 12:39:16 [employer] by Shon Cerna
--- NOTE | 2024-10-17 15:49 | P.DS ---
Admission Date: 10/12/24 Discharge Date: 10/17/24 Disposition: TRANSFER TO SNF - REHAB Discharge Condition: GOOD Reason for Admission: CVA r/o Brief History of Present Illness: Richard Valentine is a 73 year old female with Pmhx arthritis, CAD, CVA, GERD, hypertension, pancreatitis, sleep apnea, chest pain, high cholesterol who presents to the ED with chief complaint of headache nausea and left-sided pain. On evaluation she reports having paralysis to her left side in the past and is now wheelchair-bound but able to transfer. Her chief complaint was left leg pain radiating to her foot with most pain located in the plantar area. Laboratory evaluation within normal limits. On examination she has slurred speech, left facial numbness, left sided weakness she reports is the same, and left leg pain. Initial vitals BP 190 / 88; Pulse 59; Resp 18; Temp 98.1(O); Pulse Ox 100% on R/A CT head, CTA head/neck and chest xray reports no acute findings. Shelia will be admitted to hospitalist service for further evaluation and troy atment of CVA r/o and left leg pain. Hospital Course: Problem list CVA rule out History of left-sided deficit Left leg pain arthritis CAD GERD hypertension pancreatitis sleep apnea chest pain high cholesterol Patient was admitted to the hospital for left-sided pain with previous CVA causing left-sided hemiparesis. CT head without contrast was negative for acute findings. CTA head and neck were negative for large vessel occlusion. Echocardiogram showed normal LVEF of 60 to 65% with grade 1 diastolic dysfunction. Negative for DVT or significant PAD of the Left lower extermity. Throughout hospitalization she did suffer from what is believed to be complex migraines/headaches. She was started on daily Qulipta 60 mg and as needed Ubrelvy 50 mg which seemed to help with her symptoms. She was also given Phenergan as needed for nausea which did help as well. She has done well working with physical therapy and been approved for jail for further PT before discharge home. Recommend continuing home medications with the addition of the Qulipta daily and Ubrelvy as needed Phenergan as needed for nausea Patient will need to follow-up with her PCP and neurologist outpatient for further management Vital Signs/Physical Exam: Temp Pulse Resp BP Pulse Ox 98.3 F 61 14 101/59 L 95 10/17/24 12:00 10/17/24 12:00 10/17/24 12:00 10/17/24 12:00 10/17/24 12:00 General: Alert, In no apparent distress, Oriented x3 HEENT: Atraumatic, PERRLA Neck: Supple, JVD not distended Respiratory: Clear to auscultation bilaterally, Normal air movement Cardiovascular: Regular rate/rhythm, Normal S1 S2 Gastrointestinal: Normal bowel sounds, No tenderness Musculoskeletal: No tenderness Integumentary: No rashes Neurological: Normal speech, Normal affect, Other (Left-sided hemiparesis from previous CVA) Laboratory Data at Discharge: WBC 7.00 thou/uL (4.3-10.9) 10/17/24 05:03 Hgb 11.9 g/dL (12.0-15.0) L 10/17/24 05:03 Hct 36.8 % (36.0-45.0) 10/17/24 05:03 Plt Count 198 thou/uL (152-406) 10/17/24 05:03 PT 11.8 SECONDS (9.4-12.5) 10/11/24 08:32 INR 1.13 10/11/24 08:32 APTT 34.6 SECONDS (24.3-36.9) 10/11/24 08:32 Sodium 137 mEq/L (136-145) 10/17/24 05:03 Potassium 4.0 mEq/L (3.5-5.1) 10/17/24 05:03 BUN 19 mg/dL (7-18) H 10/17/24 05:03 Creatinine 0.81 mg/dL (0.55-1.02) 10/17/24 05:03 Glucose 88 mg/dL (74-106) 10/17/24 05:03 Phosphorus 3.7 mg/dL (2.5-4.9) 10/17/24 05:03 Magnesium 2.4 mg/dL (1.6-2.4) 10/17/24 05:03 Total Bilirubin 0.5 mg/dL (0.2-1.0) 10/11/24 08:32 AST 16 U/L (15-37) 10/11/24 08:32 ALT 16 U/L (13-56) 10/11/24 08:32 Alkaline Phosphatase 70 U/L (45-117) 10/11/24 08:32 Triglycerides 71 mg/dL (<150) 10/12/24 06:50 Cholesterol 73 mg/dL (<200) 10/12/24 06:50 HDL Cholesterol 43 mg/dL (40-60) 10/12/24 06:50 Cholesterol/HDL Ratio 1.70 10/12/24 06:50 Home Medications: Atorvastatin Calcium 1 tab PO DAILY 10/11/24 Duloxetine HCl 1 cap PO DAILY 10/11/24 Lisinopril [Zestril] 1 tab PO DAILY 10/11/24 Metformin ER [Glucophage ER*] 1 tab PO DAILY 10/11/24 Pantoprazole [Protonix Tab*] 40 mg PO DAILY 10/11/24 Trazodone HCl 100 mg PO BEDTIME 10/11/24 carvediloL [Carvedilol] 12.5 mg PO DAILY 10/11/24 oxyBUTYnin chloride [Oxybutynin Chloride] 5 mg PO DAILY 10/11/24 Amitriptyline [Elavil*] 25 mg PO BEDTIME 10/13/24 Gabapentin 300 mg PO TID 10/13/24 Amlodipine [Norvasc*] 5 mg PO DAILY tab 10/17/24 Promethazine Tab [Phenergan] 12.5 mg PO Q6HP PRN #30 tab 10/17/24 Qulipta 60 mg PO DAILY 10/17/24 Ubrelvy 50 mg PO PRN PRN 10/17/24 New Medications: Promethazine Tab [Phenergan] 12.5 mg PO Q6HP PRN #30 tab PRN Reason: Nausea / Vomiting Physician Discharge Instructions: Patient was admitted to the hospital for left-sided pain with previous CVA causing left-sided hemiparesis. CT head without contrast was negative for acute findings. CTA head and neck were negative for large vessel occlusion. Echocardiogram showed normal LVEF of 60 to 65% with grade 1 diastolic dysfunction. Negative for DVT or significant PAD of the Left lower extermity. Throughout hospitalization she did suffer from what is believed to be complex migraines/headaches. She was started on daily Qulipta 60 mg and as needed Ubrelvy 50 mg which seemed to help with her symptoms. She was also given Phenergan as needed for nausea which did help as well. She has done well working with physical therapy and been approved for jail for further PT before discharge home. Recommend continuing home medications with the addition of the Qulipta daily and Ubrelvy as needed Phenergan as needed for nausea Patient will need to follow-up with her PCP and neurologist outpatient for further management Diet: ADA Activity: Fall precautions Followup: Johan Palacios [Primary Care Provider] - 1-2 Weeks Time spent managing pt's care (in minutes): 47
[2024-10-17 20:49] LABS: Anti-Cardiolipin IgG Antibody <2.0 GPL-U/mL (<20.0); Anti-Cardiolipin IgM Antibody 3.7 MPL-U/mL (<20.0)
[2024-10-18 11:22] LABS: PGA INTERPRETATION REPORT; Prothrombin Gene Analysis Test NEGATIVE
[2024-10-18 23:42] LABS: Factor V (Leiden) Interp REPORT; Factor V (Leiden) Result NEGATIVE
== END 2024-10-17 13:09 | DRG 103 ==
LOC: ER 07:52 → ERHOLD 10:36 → 2ND 16:24 → OBSVTOIN 10-12 12:00
PROVIDERS: ADMIT Internal Medicine; ATTEND Hospitalist
DX: G43.909 Migraine, unspecified, not intractable, without status migrainosus (principal); K86.1 Other chronic pancreatitis; I69.354 Hemiplegia and hemiparesis following cerebral infarction affecting left non-dominant side; I10 Essential (primary) hypertension; M79.605 Pain in left leg; M81.0 Age-related osteoporosis without current pathological fracture; I08.1 Rheumatic disorders of both mitral and tricuspid valves; G47.30 Sleep apnea, unspecified; E78.00 Pure hypercholesterolemia, unspecified; K21.9 Gastro-esophageal reflux disease without esophagitis; I25.10 Atherosclerotic heart disease of native coronary artery without angina pectoris; Z60.2 Problems related to living alone; Z88.0 Allergy status to penicillin; Z88.5 Allergy status to narcotic agent; Z88.2 Allergy status to sulfonamides; Z88.1 Allergy status to other antibiotic agents; Z74.01 Bed confinement status; Z79.84 Long term (current) use of oral hypoglycemic drugs; Z79.02 Long term (current) use of antithrombotics/antiplatelets; Z90.49 Acquired absence of other specified parts of digestive tract; Z79.899 Other long term (current) drug therapy
CPT/HCPCS: 36415; 70450; 70496; 70498; 71045; 80048; 80061; 80076; 81240; 81241; 82306; 82565; 82607; 82947; 83036; 83090; 83735; 84100; 84165; 84425; 84436; 84443; 84484; 85025; 85300; 85302; 85305; 85306; 85610; 85730; 86021; 86147; 86592; 86593; 92526; 92610; 93005; 93306; 93926; 93971; 97110; 97161; 97530; 99285; G0378; J0360; J1171; J1650; J2405; J2550; J7030; Q9967

== ENCOUNTER 2024-11-28 23:26 | Emergency (ER) | payer OTHER ==
--- OUTSIDE RECORDS SUMMARY | 2024-11-28 23:31 | XMS REPORT | Continuity of Care Document ---
Author Name Unknown Address [address] [facility] [address] [place] [address] [facility] Address [address] [facility] [place] [address] Care Team Providers Care [employer] Name Role Phone GABRIEL DORMAN Primary Care Physician UnavailJOSE ANGEL Giron Attending Clinician Unavailable Stevenson Love PTA Attending Clinician Kerri Hernandez MD Attending Clinician [phone] Doctor Unassigned, [place] Attending Clinician Ki Choudhury Attending Clinician KERRI PINA Attending Clinician KERRI Metzger Attending Clinician Anabela Park PTA Attending Clinician Unavail Yaneth Purcell PTA Attending Clinician Lucille Malik PTA Attending Clinician Romie Lomas MD Attending Clinician ROMIE ARRIAGA Attending Clinician JOCE MorrisL T Attending Clinician Unavaila shae Medina PT, Veronica Attending Clinician Unavailosmar Dominguez PT, Bel Ballard Attending Clinician Unavailab shanelle 1, [facility] Attending Clinician Unavail able Raj OT, Lucille Servin Attending Clinician Unavail able Anthony Bartlett PT, Chelita Attending Clinician Un available GIULIA GROSS Attending Clinician Unavailab SHREYAS Cameron Attending Clinician Unavailable CORNELIUS ROSE Attending Clinician Unavailable Darrick MCMULLENP, Anabela Attending Clinician [phone] Niecy PAC, Margaret S Attending Clinician [phone] GIULIA GROSS Admitting Clinician Unavailab shanelle Payers Payer Name Policy Type Policy Number Effective Date Expirati on Date Source [facility] WELLMED [id number] 2021 00:00:00 [place] [id number] 2018 00:00:00 WELLMED/[employer]ARP MEDICARE ADVANTAGE [id number] 2019 00:00:00 MEDICARE PART A \\T\\ B [id number] 2015 00:00:00 Problems Condition Name Condition Details Condition Category Status Onset Date Resolution Date Last Treatment Date Treating Clinician Comments Source Unspecifie d abnormalit ies of gait and mobility Unspecifie d abnormalit ies of gait and mobility Disease Active 2022-09 00:00: 00 [facility] At risk for falls At risk for falls Disease Active 2022-09 00:00: 00 [facility] No known active problems No known active problems Disease [facility] Allergies, Adverse Reactions, Alerts Allergy Name Allergy Type Status Severity Reaction(s) Onset Date Inactive Date Treating Clinician Comments Source ONDANSET TEDDY HCL (PF) DRUG Active ITCHING 2017-09 00:00: 00 [facility] Ondanset teddy Hcl (Pf) Propensi ty to adverse reaction s Active Itching 2017-09 00:00: 00 Reaction occurred in the ER. [facility] CEPHALEX IN DRUG INGREDI Active NAUSEA ONLY 2006-09 00:00: 00 [facility] DOXYCYCL INE DRUG INGREDI Active NAUSEA ONLY 2006-09 00:00: 00 [facility] FAMOTIDI NE DRUG INGREDI Active NAUSEA ONLY 2006-09 00:00: 00 [facility] HYDROXYZ INE DRUG INGREDI Active NAUSEA ONLY 2006-09 00:00: 00 [facility] IBUPROFE N DRUG INGREDI Active NAUSEA ONLY 2006-09 00:00: 00 [facility] SULFA (SULFONA MIDE ANTIBIOT ICS) Drug Class Active NAUSEA ONLY 2006-09 00:00: 00 [facility] Sulfa (Sulfona mide Antibiot ics) Propensi ty to adverse reaction s Active Nausea Only 2006-09 00:00: 00 [facility] Cephalex in Propensi ty to adverse reaction s Active Nausea Only 2006-09 00:00: 00 [facility] Doxycycl ine Propensi ty to adverse reaction s Active Nausea Only 2006-09 00:00: 00 [facility] Famotidi ne Propensi ty to adverse reaction s Active Nausea Only 2006-09 00:00: 00 [facility] Hydroxyz ine Propensi ty to adverse reaction s Active Nausea Only 2006-09 00:00: 00 [facility] Ibuprofe n Propensi ty to adverse reaction s Active Nausea Only 2006-09 00:00: 00 [facility] Sulfa (Sulfona mide Antibiot ics) Propensi ty to adverse reaction s Active Nausea Only 2006-09 00:00: 00 [facility] Social History Social Habit Start Date Stop Date Quantity Comments Source Gender identity [facility] History of tobacco use Current smoker [facility] History of Social function 2023-08-10 00:00:00 2023-08-10 00:00:00 [facility] Alcohol intake 2023-08-10 00:00:00 2023-08-10 00:00:00 0 /d [facility] Exposure to SARS-CoV-2 (event) 2023-01-23 00:00:00 2023-02-02 09:11:00 Not sure [facility] Tobacco use and exposure 2020-10-10 00:00:00 2020-10-10 00:00:00 Never used [facility] Sex Assigned At 1950 00:00:00 1950 00:00:00 [facility] Smoking Status Start Date Stop Date Source Ex-smoker 2020-10-10 00:00:00 2020-10-10 00:00:00 U [facility] Medications Ordered Medication Name Filled Medication Name Start Date Stop Date Current Medication? Ordering Clinician Indication Dosage Frequency Signature (SIG) Comments Components Source ketorolac (TORADOL) injection 15 mg 10-10 23:00: 00 10-10 23:19 :00 No 15mg 15 mg, Slow IV Push, ONCE, 1 dose, Tue10/10/20 at 1700, PAUL
Fa culty member approving Restricted medication : EMERGENCY ROOM, [facility] methocarbam oL (ROBAXIN) tablet 500 mg 10-10 23:00: 00 10-10 23:03 :00 No 500mg 500 mg, Oral, ONCE NOW, 1 dose, Tue10/10/20 at 1700, PAUL [facility] methocarbam oL 750 mg tablet 10-10 00:00: 00 Yes [id number] 750mg Take 1 tablet by mouth 3 (three) times daily as needed (muscle pain). [facility] albuterol (VENTOLIN) inhaler 2 Puff 05-16 07:15: 00 05-16 06:12 :00 No 2{puff} 2 Puff, Inhalation , ONCE, 1 dose, Tue05/16/20 at 0215, PAUL
Is this order for a patient with suspected or confirmed COVID-19 infection? No
Does this order have Pulmonary/ Critical Care approval? Yes [facility] cloNIDine (CATAPRES) tablet 0.1 mg 05-16 06:00: 00 05-16 05:13 :00 No .1mg 0.1 mg, Oral, ONCE, 1 dose, Tue05/16/20 at 0100, STAT [facility] albuterol 90 mcg/actuati on inhaler 05-16 00:00: 00 Yes [id number] 2{puff} Inhale 2 Puffs every 4 (four) hours as needed for Wheezing or Shortness of Breath. [facility] dicyclomine (BENTYL) 10 mg capsule 2017-09 00:00: 00 Yes 10mg Take 1 capsule by mouth 4 (four) times daily. [facility] traMADOL 50 mg tablet 2017-09 00:00: 00 Yes 50mg Take 1 tablet by mouth every 6 (six) hours as needed for Pain (scale 4-6). [facility] proMETHazin e (PHENERGAN) 25 mg suppository 04-01 00:00: 00 Yes 25mg Insert 1 Suppositor y into rectum every 6 (six) hours as needed for Nausea and Vomiting (N/V). [facility] fluticasone (FLONASE) 50 mcg/actuati on nasal spray 2015-09 15:14: 28 Yes 1{spray } Use 1 [place] in each nostril daily. Indication s: 1 [place] each Nostril BID [facility] traZODONE (DESYREL) 50 mg tablet 2015-09 15:14: 28 Yes 50mg Take 50 mg by mouth at bedtime. [facility] omeprazole (PRILOSEC) 40 mg capsule 2015-09 15:14: 27 Yes 40mg Take 40 mg by mouth daily. [facility] fluticasone (FLONASE) 50 mcg/actuati on nasal spray 2015-09 10:14: 28 Yes 1{spray } Use 1 [place] in each nostril daily. Indication s: 1 [place] each Nostril BID [facility] traZODONE (DESYREL) 50 mg tablet 2015-09 10:14: 28 Yes 50mg Take 50 mg by mouth at bedtime. [facility] omeprazole (PRILOSEC) 40 mg capsule 2015-09 10:14: 27 Yes 40mg Take 40 mg by mouth daily. [facility] lisinopril (PRINIVIL,Z ESTRIL) 20 mg tablet 2015-09 00:00: 00 Yes 20mg Take 1 tablet by mouth 2 (two) times daily. [facility] Immunizations Ordered Immunization Name Filled Immunization Name Date Status Comments Source SARS-COV-2 COVID-19 PFIZER VACCINE 2021-02-07 00:00:00 Completed [facility] SARS-COV-2 COVID-19 PFIZER VACCINE 2021-02-07 00:00:00 Completed [facility] SARS-COV-2 COVID-19 PFIZER VACCINE 2021-02-07 00:00:00 Completed [facility] SARS-COV-2 COVID-19 PFIZER VACCINE 2021-02-07 00:00:00 Completed [facility] SARS-COV-2 COVID-19 PFIZER VACCINE 2021-02-07 00:00:00 Completed [facility] SARS-COV-2 COVID-19 PFIZER VACCINE 2021-02-07 00:00:00 Completed [facility] SARS-COV-2 COVID-19 PFIZER VACCINE 2021-02-07 00:00:00 Completed [facility] SARS-COV-2 COVID-19 PFIZER VACCINE 2021-02-07 00:00:00 Completed [facility] SARS-COV-2 COVID-19 PFIZER VACCINE 2021-02-07 00:00:00 Completed [facility] SARS-COV-2 COVID-19 PFIZER VACCINE 2021-02-07 00:00:00 Completed [facility] SARS-COV-2 COVID-19 PFIZER VACCINE 2021-02-07 00:00:00 Completed [facility] SARS-COV-2 COVID-19 PFIZER VACCINE 2021-02-07 00:00:00 Completed [facility] SARS-COV-2 COVID-19 PFIZER VACCINE 2021-02-07 00:00:00 Completed [facility] SARS-COV-2 COVID-19 PFIZER VACCINE 2021-02-07 00:00:00 Completed [facility] SARS-COV-2 COVID-19 PFIZER VACCINE 2021-02-07 00:00:00 Completed [facility] SARS-COV-2 COVID-19 PFIZER VACCINE 2021-02-07 00:00:00 Completed [facility] SARS-COV-2 COVID-19 PFIZER VACCINE 2021-02-07 00:00:00 Completed [facility] SARS-COV-2 COVID-19 PFIZER VACCINE 2021-02-07 00:00:00 Completed [facility] SARS-COV-2 COVID-19 PFIZER VACCINE 2021-02-07 00:00:00 Completed [facility] SARS-COV-2 COVID-19 PFIZER VACCINE 2021-02-07 00:00:00 Completed [facility] SARS-COV-2 COVID-19 PFIZER VACCINE 2021-02-07 00:00:00 Completed [facility] SARS-COV-2 COVID-19 PFIZER VACCINE 2021-02-07 00:00:00 Completed [facility] SARS-COV-2 COVID-19 PFIZER VACCINE 2021-02-07 00:00:00 Completed [facility] SARS-COV-2 COVID-19 PFIZER VACCINE 2021-02-07 00:00:00 Completed [facility] SARS-COV-2 COVID-19 PFIZER VACCINE 2021-02-07 00:00:00 Completed [facility] SARS-COV-2 COVID-19 PFIZER VACCINE 2021-02-07 00:00:00 Completed [facility] SARS-COV-2 COVID-19 PFIZER VACCINE 2021-02-07 00:00:00 Completed [facility] SARS-COV-2 COVID-19 PFIZER VACCINE 2021-02-07 00:00:00 Completed [facility] SARS-COV-2 COVID-19 PFIZER VACCINE 2021-02-07 00:00:00 Completed [facility] SARS-COV-2 COVID-19 PFIZER VACCINE 2021-02-07 00:00:00 Completed [facility] SARS-COV-2 COVID-19 PFIZER VACCINE 2021-02-07 00:00:00 Completed [facility] SARS-COV-2 COVID-19 PFIZER VACCINE 2021-02-07 00:00:00 Completed [facility] SARS-COV-2 COVID-19 PFIZER VACCINE 2021-02-07 00:00:00 Completed [facility] SARS-COV-2 COVID-19 PFIZER VACCINE 2021-02-07 00:00:00 Completed [facility] SARS-COV-2 COVID-19 PFIZER VACCINE 2021-02-07 00:00:00 Completed [facility] SARS-COV-2 COVID-19 PFIZER VACCINE 2021-02-07 00:00:00 Completed [facility] SARS-COV-2 COVID-19 PFIZER VACCINE 2021-02-07 00:00:00 Completed [facility] SARS-COV-2 COVID-19 PFIZER VACCINE 2021-02-07 00:00:00 Completed [facility] SARS-COV-2 COVID-19 PFIZER VACCINE 2021-02-07 00:00:00 Completed [facility] SARS-COV-2 COVID-19 PFIZER VACCINE 2021-02-07 00:00:00 Completed [facility] SARS-COV-2 COVID-19 PFIZER VACCINE 2021-02-07 00:00:00 Completed [facility] SARS-COV-2 COVID-19 PFIZER VACCINE 2021-02-07 00:00:00 Completed [facility] SARS-COV-2 COVID-19 PFIZER VACCINE 2021-02-07 00:00:00 Completed [facility] SARS-COV-2 COVID-19 PFIZER VACCINE 2021-02-07 00:00:00 Completed [facility] SARS-COV-2 COVID-19 PFIZER VACCINE 2021-02-07 00:00:00 Completed [facility] SARS-COV-2 COVID-19 PFIZER VACCINE 2021-02-07 00:00:00 Completed [facility] SARS-COV-2 COVID-19 PFIZER VACCINE 2021-02-07 00:00:00 Completed [facility] SARS-COV-2 COVID-19 PFIZER VACCINE 2021-02-07 00:00:00 Completed [facility] SARS-COV-2 COVID-19 PFIZER VACCINE 2021-02-07 00:00:00 Completed [facility] SARS-COV-2 COVID-19 PFIZER VACCINE 2021-02-07 00:00:00 Completed [facility] SARS-COV-2 COVID-19 PFIZER VACCINE 2021-02-07 00:00:00 Completed [facility] SARS-COV-2 COVID-19 PFIZER VACCINE 2021-02-07 00:00:00 Completed [facility] SARS-COV-2 COVID-19 PFIZER VACCINE 2021-02-07 00:00:00 Completed [facility] SARS-COV-2 COVID-19 PFIZER VACCINE 2021-01-10 00:00:00 Completed [facility] SARS-COV-2 COVID-19 PFIZER VACCINE 2021-01-10 00:00:00 Completed [facility] SARS-COV-2 COVID-19 PFIZER VACCINE 2021-01-10 00:00:00 Completed [facility] SARS-COV-2 COVID-19 PFIZER VACCINE 2021-01-10 00:00:00 Completed [facility] SARS-COV-2 COVID-19 PFIZER VACCINE 2021-01-10 00:00:00 Completed [facility] SARS-COV-2 COVID-19 PFIZER VACCINE 2021-01-10 00:00:00 Completed [facility] SARS-COV-2 COVID-19 PFIZER VACCINE 2021-01-10 00:00:00 Completed [facility] SARS-COV-2 COVID-19 PFIZER VACCINE 2021-01-10 00:00:00 Completed [facility] SARS-COV-2 COVID-19 PFIZER VACCINE 2021-01-10 00:00:00 Completed [facility] SARS-COV-2 COVID-19 PFIZER VACCINE 2021-01-10 00:00:00 Completed [facility] SARS-COV-2 COVID-19 PFIZER VACCINE 2021-01-10 00:00:00 Completed [facility] SARS-COV-2 COVID-19 PFIZER VACCINE 2021-01-10 00:00:00 Completed [facility] SARS-COV-2 COVID-19 PFIZER VACCINE 2021-01-10 00:00:00 Completed [facility] SARS-COV-2 COVID-19 PFIZER VACCINE 2021-01-10 00:00:00 Completed [facility] SARS-COV-2 COVID-19 PFIZER VACCINE 2021-01-10 00:00:00 Completed [facility] SARS-COV-2 COVID-19 PFIZER VACCINE 2021-01-10 00:00:00 Completed [facility] SARS-COV-2 COVID-19 PFIZER VACCINE 2021-01-10 00:00:00 Completed [facility] SARS-COV-2 COVID-19 PFIZER VACCINE 2021-01-10 00:00:00 Completed [facility] SARS-COV-2 COVID-19 PFIZER VACCINE 2021-01-10 00:00:00 Completed [facility] SARS-COV-2 COVID-19 PFIZER VACCINE 2021-01-10 00:00:00 Completed [facility] SARS-COV-2 COVID-19 PFIZER VACCINE 2021-01-10 00:00:00 Completed [facility] SARS-COV-2 COVID-19 PFIZER VACCINE 2021-01-10 00:00:00 Completed [facility] SARS-COV-2 COVID-19 PFIZER VACCINE 2021-01-10 00:00:00 Completed [facility] SARS-COV-2 COVID-19 PFIZER VACCINE 2021-01-10 00:00:00 Completed [facility] SARS-COV-2 COVID-19 PFIZER VACCINE 2021-01-10 00:00:00 Completed [facility] SARS-COV-2 COVID-19 PFIZER VACCINE 2021-01-10 00:00:00 Completed [facility] SARS-COV-2 COVID-19 PFIZER VACCINE 2021-01-10 00:00:00 Completed [facility] SARS-COV-2 COVID-19 PFIZER VACCINE 2021-01-10 00:00:00 Completed [facility] SARS-COV-2 COVID-19 PFIZER VACCINE 2021-01-10 00:00:00 Completed [facility] SARS-COV-2 COVID-19 PFIZER VACCINE 2021-01-10 00:00:00 Completed [facility] SARS-COV-2 COVID-19 PFIZER VACCINE 2021-01-10 00:00:00 Completed [facility] SARS-COV-2 COVID-19 PFIZER VACCINE 2021-01-10 00:00:00 Completed [facility] SARS-COV-2 COVID-19 PFIZER VACCINE 2021-01-10 00:00:00 Completed [facility] SARS-COV-2 COVID-19 PFIZER VACCINE 2021-01-10 00:00:00 Completed [facility] SARS-COV-2 COVID-19 PFIZER VACCINE 2021-01-10 00:00:00 Completed [facility] SARS-COV-2 COVID-19 PFIZER VACCINE 2021-01-10 00:00:00 Completed [facility] SARS-COV-2 COVID-19 PFIZER VACCINE 2021-01-10 00:00:00 Completed [facility] SARS-COV-2 COVID-19 PFIZER VACCINE 2021-01-10 00:00:00 Completed [facility] SARS-COV-2 COVID-19 PFIZER VACCINE 2021-01-10 00:00:00 Completed [facility] SARS-COV-2 COVID-19 PFIZER VACCINE 2021-01-10 00:00:00 Completed [facility] SARS-COV-2 COVID-19 PFIZER VACCINE 2021-01-10 00:00:00 Completed [facility] SARS-COV-2 COVID-19 PFIZER VACCINE 2021-01-10 00:00:00 Completed [facility] SARS-COV-2 COVID-19 PFIZER VACCINE 2021-01-10 00:00:00 Completed [facility] SARS-COV-2 COVID-19 PFIZER VACCINE 2021-01-10 00:00:00 Completed [facility] SARS-COV-2 COVID-19 PFIZER VACCINE 2021-01-10 00:00:00 Completed [facility] SARS-COV-2 COVID-19 PFIZER VACCINE 2021-01-10 00:00:00 Completed [facility] SARS-COV-2 COVID-19 PFIZER VACCINE 2021-01-10 00:00:00 Completed [facility] SARS-COV-2 COVID-19 PFIZER VACCINE 2021-01-10 00:00:00 Completed [facility] SARS-COV-2 COVID-19 PFIZER VACCINE 2021-01-10 00:00:00 Completed [facility] SARS-COV-2 COVID-19 PFIZER VACCINE 2021-01-10 00:00:00 Completed [facility] SARS-COV-2 COVID-19 PFIZER VACCINE 2021-01-10 00:00:00 Completed [facility] SARS-COV-2 COVID-19 PFIZER VACCINE 2021-01-10 00:00:00 Completed [facility] SARS-COV-2 COVID-19 PFIZER VACCINE 2021-01-10 00:00:00 Completed [facility] SARS-COV-2 COVID-19 PFIZER VACCINE Unknown Completed [facility] SARS-COV-2 COVID-19 PFIZER VACCINE Unknown Completed [facility] SARS-COV-2 COVID-19 PFIZER VACCINE Unknown Completed [facility] SARS-COV-2 COVID-19 PFIZER VACCINE Unknown Completed [facility] SARS-COV-2 COVID-19 PFIZER VACCINE Unknown Completed [facility] SARS-COV-2 COVID-19 PFIZER VACCINE Unknown Completed [facility] SARS-COV-2 COVID-19 PFIZER VACCINE Unknown Completed [facility] SARS-COV-2 COVID-19 PFIZER VACCINE Unknown Completed [facility] SARS-COV-2 COVID-19 PFIZER VACCINE Unknown Completed [facility] SARS-COV-2 COVID-19 PFIZER VACCINE Unknown Completed [facility] SARS-COV-2 COVID-19 PFIZER VACCINE Unknown Completed [facility] SARS-COV-2 COVID-19 PFIZER VACCINE Unknown Completed [facility] SARS-COV-2 COVID-19 PFIZER VACCINE Unknown Completed [facility] SARS-COV-2 COVID-19 PFIZER VACCINE Unknown Completed [facility] SARS-COV-2 COVID-19 PFIZER VACCINE Unknown Completed [facility] SARS-COV-2 COVID-19 PFIZER VACCINE Unknown Completed [facility] SARS-COV-2 COVID-19 PFIZER VACCINE Unknown Completed [facility] SARS-COV-2 COVID-19 PFIZER VACCINE Unknown Completed [facility] SARS-COV-2 COVID-19 PFIZER VACCINE Unknown Completed [facility] SARS-COV-2 COVID-19 PFIZER VACCINE Unknown Completed [facility] SARS-COV-2 COVID-19 PFIZER VACCINE Unknown Completed [facility] SARS-COV-2 COVID-19 PFIZER VACCINE Unknown Completed [facility] SARS-COV-2 COVID-19 PFIZER VACCINE Unknown Completed [facility] SARS-COV-2 COVID-19 PFIZER VACCINE Unknown Completed [facility] SARS-COV-2 COVID-19 PFIZER VACCINE Unknown Completed [facility] Vital Signs Vital Name Observation Time Observation Value Comments S ource Systolic blood pressure 2023-08-10 17:31:00 146 mm[Hg] [facility] Diastolic blood pressure 2023-08-10 17:31:00 79 mm[Hg] [facility] Heart rate 2023-08-10 17:31:00 66 /min [facility] Respiratory rate 2023-08-10 17:31:00 19 /min [facility] Body height 2023-08-10 17:31:00 154.9 cm [facility] Body weight 2023-08-10 17:31:00 74.39 kg [facility] BMI 2023-08-10 17:31:00 30.99 kg/m2 [facility] Oxygen saturation in Arterial blood by Pulse oximetry 2023-08-10 17:31:00 94 /min [facility] Systolic blood pressure 2023-03-16 14:53:00 155 mm[Hg] [facility] Diastolic blood pressure 2023-03-16 14:53:00 91 mm[Hg] [facility] Heart rate 2023-03-16 14:49:00 60 /min [facility] Respiratory rate 2023-03-16 14:49:00 18 /min [facility] Body height 2023-03-16 14:49:00 154.9 cm [facility] Body weight 2023-03-16 14:49:00 74.617 kg [facility] BMI 2023-03-16 14:49:00 31.08 kg/m2 [facility] Oxygen saturation in Arterial blood by Pulse oximetry 2023-03-16 14:49:00 92 /min [facility] Systolic blood pressure 2020-10-11 00:00:00 106 mm[Hg] [facility] Diastolic blood pressure 2020-10-11 00:00:00 74 mm[Hg] [facility] Heart rate 2020-10-11 00:00:00 63 /min [facility] Respiratory rate 2020-10-11 00:00:00 16 /min [facility] Oxygen saturation in Arterial blood by Pulse oximetry 2020-10-11 00:00:00 98 /min [facility] Body temperature 2020-10-10 21:35:00 37.11 Luisa [facility] Body height 2020-10-10 21:35:00 157.5 cm [facility] Body weight 2020-10-10 21:35:00 77.111 kg [facility] BMI 2020-10-10 21:35:00 31.09 kg/m2 [facility] Systolic blood pressure 2020-10-11 00:00:00 106 mm[Hg] [facility] Diastolic blood pressure 2020-10-11 00:00:00 74 mm[Hg] [facility] Heart rate 2020-10-11 00:00:00 63 /min [facility] Respiratory rate 2020-10-11 00:00:00 16 /min [facility] Oxygen saturation in Arterial blood by Pulse oximetry 2020-10-11 00:00:00 98 /min [facility] Body temperature 2020-10-10 21:35:00 37.11 Luisa [facility] Body height 2020-10-10 21:35:00 157.5 cm [facility] Body weight 2020-10-10 21:35:00 77.111 kg [facility] BMI 2020-10-10 21:35:00 31.09 kg/m2 [facility] Systolic blood pressure 2020-05-16 06:00:00 163 mm[Hg] [facility] Diastolic blood pressure 2020-05-16 06:00:00 74 mm[Hg] [facility] Heart rate 2020-05-16 06:00:00 64 /min [facility] Respiratory rate 2020-05-16 06:00:00 20 /min [facility] Oxygen saturation in Arterial blood by Pulse oximetry 2020-05-16 06:00:00 98 /min [facility] Body temperature 2020-05-16 02:44:00 37.22 Luisa [facility] Body height 2020-05-16 02:44:00 152.4 cm [facility] Body weight 2020-05-16 02:44:00 77.111 kg [facility] BMI 2020-05-16 02:44:00 33.20 kg/m2 [facility] Systolic blood pressure 2020-05-16 06:00:00 163 mm[Hg] [facility] Diastolic blood pressure 2020-05-16 06:00:00 74 mm[Hg] [facility] Heart rate 2020-05-16 06:00:00 64 /min [facility] Respiratory rate 2020-05-16 06:00:00 20 /min [facility] Oxygen saturation in Arterial blood by Pulse oximetry 2020-05-16 06:00:00 98 /min [facility] Body temperature 2020-05-16 02:44:00 37.22 Luisa [facility] Body height 2020-05-16 02:44:00 152.4 cm [facility] Body weight 2020-05-16 02:44:00 77.111 kg [facility] BMI 2020-05-16 02:44:00 33.20 kg/m2 [facility] Procedures Procedure Date / Time Performed Performing Clinician Source CONSENT/REFUSAL FOR DIAGNOSIS AND TREATMENT 2023-11-24 15:20:03 Doctor Unassigned, [place] [facility] ASSIGNMENT OF BENEFITS 2023-11-24 15:19:35 Docto r Unassigned, [place] [facility] DME/SUPPLY JUSTIFICATION 2023-08-10 06:01:00 Doc tor Unassigned, [place] [facility] SLEEP STUDY DATA REPORT 2023-05-03 05:01:00 Doct or Unassigned, [place] [facility] OP CLINIC NOTES/CONSULTS 2023-02-02 05:01:00 Doc tor Unassigned, [place] [facility] REFERRAL- REQUEST/RESPONSE 2022-12-22 05:01:00 Doctor Unassigned, [place] [facility] ASSIGNMENT OF BENEFITS 2022-09-29 15:29:59 Docto r Unassigned, [place] [facility] REFERRAL- REQUEST/RESPONSE 2022-09-02 06:01:00 Doctor Unassigned, [place] [facility] EXTERNAL PROVIDER - ADC REFERRAL 2021-03-20 05:01:00 Doctor Unassigned, [place] [facility] LIPASE 2020-10-10 23:18:00 Darrick [facility] HEPATIC FUNCTION PANEL (12830) (ALB,T.PRO,BILI T,BU/BC,ALT,AST,ALK PHOS) 2020-10-10 23:18:00 Darrick [facility] BASIC METABOLIC PANEL (NA, K, CL, CO2, GLUCOSE, BUN, CREATININE, CA) 2020-10-10 23:18:00 Darrick [facility] CBC WITH DIFF 2020-10-10 23:18:00 Anabela Hollings[facility] URINALYSIS 2020-10-10 23:04:00 Darrick [facility] CT ABDOMEN PELVIS WO CONTRAST 2020-10-10 22:23:01 Darrick [facility] NOTICE OF PRIVACY PRACTICES 2020-10-10 21:29:06 Doctor Unassigned, [place] [facility] CONSENT/REFUSAL FOR DIAGNOSIS AND TREATMENT 2020-10-10 21:28:36 Doctor Unassigned, [place] [facility] EKG-12 LEAD 2020-05-16 05:28:45 Margaret [facility] LIPASE 2020-05-16 04:35:00 Margaret [facility] TROPONIN I 2020-05-16 04:35:00 Margaret [facility] COMP. METABOLIC PANEL (46230) 2020-05-16 04:35:00 Margaret Pemberton [facility] CBC WITH DIFF 2020-05-16 04:35:00 Margaret Pemberton [facility] COVID-19 (ID NOW RAPID TESTING) 2020-05-16 04:35:00 Margaret Pemberton [facility] XR CHEST 1 VW 2020-05-16 04:16:00 Margaret Pemberton [facility] URINALYSIS 2020-05-16 03:08:00 Shreyas [facility] NOTICE OF PRIVACY PRACTICES 2020-05-16 02:35:16 Doctor Unassigned, [place] [facility] CONSENT/REFUSAL FOR DIAGNOSIS AND TREATMENT 2020-05-16 02:34:46 Doctor Unassigned, [place] [facility] Encounters Start Date/Time End Date/Time Encounter Type Admission Type Attending [facility] Care Department Encounter ID Source 2023-02-16 16:30:48 Outpatient [facility] [id number] [facility] 2022-10-07 08:55:29 Outpatient [facility] [id number] [facility] 2022-08-31 07:51:11 Outpatient [facility] [id number] [facility] 2022-08-10 10:50:36 Outpatient [facility] [id number] [facility] 2022-04-14 07:54:13 Outpatient JOSE ANGEL LOZA [facility] [id number] [facility] 2022-04-13 10:22:44 Outpatient JOSE ANGEL LOZA [facility] [id number] [facility] 2022-03-24 15:48:13 Outpatient [facility] [id number] [facility] 2022-02-24 15:21:43 Outpatient [facility] [id number] [facility] 2022-02-23 12:34:09 Outpatient JOSE ANGEL LOZA [facility] [id number] [facility] 2021-07-18 18:58:[address] [facility] [id number] [facility] 2021-07-17 14:37:[address] [facility] [id number] [facility] 2024-11-16 10:18:26 2024-11-16 10:18:26 Outpatient [facility] [id number] Kelvin Lieberman 2024-09-08 10:52:52 2024-09-08 10:52:52 Outpatient [facility] [id number] Kelvin Lieberman 2024-06-01 10:53:52 2024-06-01 10:53:52 Outpatient [facility] [id number] Kelvin Lieberman 2024-05-02 10:14:40 2024-05-02 10:14:40 Outpatient [facility] [id number] Kelvin Lieberman 2024-02-02 09:40:26 2024-02-02 09:40:26 Outpatient [facility] [id number] Kelvin Lieberman 2023-11-24 09:30:00 2023-11-24 10:27:33 Ancillary Visit Stevenson Love [facility] 1..840.114 350.1.13.10 4.2.7.2.686 [id number] [facility] 2023-11-24 00:00:00 2023-11-24 00:00:00 Orders Only Doctor Unassigned, [place] [facility] 1..840.114 350.1.13.10 4.2.7.2.686 [id number] [facility] 2023-11-21 09:30:00 2023-11-21 10:14:20 Ancillary Visit Stevenson Love Kevin [facility] 1..840.114 350.1.13.10 4.2.7.2.686 [id number] [facility] 2023-11-18 09:30:00 2023-11-18 09:30:00 Outpatient R KERRI PINA [facility] [id number] [facility] 2023-11-16 09:30:00 2023-11-16 10:30:54 Ancillary Visit Anabela Kimbrough Craig L [facility] 1..840.114 350.1.13.10 4.2.7.2.686 [id number] [facility] 2023-11-11 09:30:00 2023-11-11 10:15:00 Ancillary Visit Yaneth Buckley [facility] 1.2.840.114 350.1.13.10 4.2.7.2.686 [id number] 179 [id number] [facility] 2023-11-09 09:30:00 2023-11-09 13:38:47 Ancillary Visit Stevenson Love Craig L [facility] 1.2.840.114 350.1.13.10 4.2.7.2.686 [id number] [facility] 2023-11-03 08:00:00 2023-11-03 08:00:00 [address] TA [facility] [id number] [facility] 2023-09-27 14:21:45 2023-09-27 14:21:45 Outpatient [facility] [id number] Kelvin F Mio 2023-09-27 09:30:00 2023-09-27 13:50:38 Outpatient R KERRI [facility] [id number] [facility] 2023-09-27 09:30:00 2023-09-27 10:15:00 Ancillary Visit Stevenson Love Craig L [facility] 1.2.840.114 350.1.13.10 4.2.7.2.686 [id number] 179 [id number] [facility] 2023-09-16 09:30:00 2023-09-16 10:43:41 Ancillary Visit Lucille Love Craig [facility] 1.2.840.114 350.1.13.10 4.2.7.2.686 [id number] 179 [id number] [facility] 2023-09-14 09:30:00 2023-09-14 10:40:08 Ancillary Visit Lucille Love Craig L [facility] 1.2.840.114 350.1.13.10 4.2.7.2.686 [id number] [facility] 2023-08-30 09:30:00 2023-08-30 11:11:31 Outpatient R KERRI PINA [facility] [id number] [facility] 2023-08-30 09:30:00 2023-08-30 10:15:00 Ancillary Visit Lucille Love Craig L [facility] 1.2.840.114 350.1.13.10 4.2.7.2.686 [id number] [facility] 2023-08-17 00:00:00 2023-08-17 00:00:00 Telephone Romie Arriaga [facility] 1.2.840.114 350.1.13.10 4.2.7.2.686 [id number] [facility] 2023-08-16 08:45:00 2023-08-16 09:23:42 Ancillary Visit Lucille Love Craig L [facility] 1.2.840.114 350.1.13.10 4.2.7.2.686 [id number] [facility] 2023-08-15 00:00:00 2023-08-15 00:00:00 Telephone Romie [facility] 1.2.840.114 350.1.13.10 4.2.7.2.686 [id number] [facility] 2023-08-10 11:30:00 2023-08-10 12:00:00 Office Visit Romie Arriaga [facility] 1.2.840.114 350.1.13.10 4.2.7.2.686 [id number] [facility] 2023-08-10 11:30:00 2023-08-10 11:30:00 Outpatient R ROMIE ARRIAGA [facility] [id number] [facility] 2023-08-10 00:00:00 2023-08-10 00:00:00 Orders Only Doctor Unassigned, [place] [facility] 1..840.114 350.1.13.10 4.2.7.2.686 [id number] [facility] 2023-08-09 08:45:00 2023-08-09 10:23:15 Ancillary Visit Lucille Love Craig L [facility] 1..840.114 350.1.13.10 4.2.7.2.686 [id number] [facility] 2023-08-04 16:08:13 2023-08-04 16:08:13 Outpatient [facility] [id number] Kelvin Lieberman 2023-08-04 08:45:00 2023-08-04 09:32:06 Ancillary Visit Anabela Kimbrough Craig L [facility] 1..840.114 350.1.13.10 4.2.7.2.686 [id number] [facility] 2023-07-29 20:00:00 2023-07-29 20:00:00 Outpatient R ROMIE ARRIAGA [facility] [id number] [facility] 2023-07-28 09:30:00 2023-07-28 10:13:39 Outpatient R KERRI PINA [facility] [id number] [facility] 2023-07-28 09:30:00 2023-07-28 10:13:39 Ancillary Visit Yaneth Buckley Craig L [facility] 1.2.840.114 350.1.13.10 4.2.7.2.686 [id number] 179 [id number] [facility] 2023-07-26 08:45:00 2023-07-26 09:30:00 Ancillary Visit Veronica Medina Craig L [facility] 1.2.840.114 350.1.13.10 4.2.7.2.686 [id number] [facility] 2023-07-21 08:45:00 2023-07-21 09:30:00 Ancillary Visit Stevenson Love Craig L [facility] 1.2.840.114 350.1.13.10 4.2.7.2.686 [id number] [facility] 2023-07-18 09:30:00 2023-07-18 10:15:00 Ancillary Visit Veronica Medina Craig L [facility] 1.2.840.114 350.1.13.10 4.2.7.2.686 [id number] [facility] 2023-07-18 09:30:00 2023-07-18 09:30:00 Outpatient R KERRI PINA [facility] [id number] [facility] 2023-07-08 10:15:00 2023-07-08 11:00:00 Ancillary Visit Anabela Kimbrough Craig L [facility] 1.2.840.114 350.1.13.10 4.2.7.2.686 [id number] [facility] 2023-07-06 08:45:00 2023-07-06 09:30:00 Ancillary Visit Stevenson Love Craig L [facility] 1.2.840.114 350.1.13.10 4.2.7.2.686 [id number] [facility] 2023-07-01 09:00:00 2023-07-01 09:43:38 Ancillary Visit Lucille Love Craig L [facility] 1.2.840.114 350.1.13.10 4.2.7.2.686 [id number] [facility] 2023-06-28 08:45:00 2023-06-28 09:32:45 Ancillary Visit Lucille Love Craig L [facility] 1.2.840.114 350.1.13.10 4.2.7.2.686 [id number] [facility] 2023-06-07 09:30:00 2023-06-07 10:13:36 Outpatient R KERRI PINA [facility] [id number] [facility] 2023-06-07 09:30:00 2023-06-07 10:13:36 Ancillary Visit Veronica Medina Craig L [facility] 1.2.840.114 350.1.13.10 4.2.7.2.686 [id number] [facility] 2023-06-06 18:51:35 2023-06-06 18:51:35 Outpatient [facility] [id number] Kelvin Lieberman 2023-05-26 09:30:00 2023-05-26 10:14:41 Ancillary Visit Yanteh Buckley Craig L [facility] 1.2.840.114 350.1.13.10 4.2.7.2.686 [id number] [facility] 2023-05-24 08:45:2023-05-24 09:30:00 Ancillary Visit Yaneth Buckley Craig L [facility] 1.2.840.114 350.1.13.10 4.2.7.2.686 [id number] [facility] 2023-05-16 09:15:00 2023-05-16 09:59:09 Outpatient R KERRI [facility] [facility] [id number] [facility] 2023-05-16 09:15:00 2023-05-16 09:59:09 Ancillary Visit DominguezBel obando Craig L [facility] 1.2.840.114 350.1.13.10 4.2.7.2.686 [id number] [facility] 2023-05-03 20:00:00 2023-05-03 22:30:00 Director Of Programming Visit 1, [facility] Sleep Lab Bed Romie Arriaga [facility] 1.2.840.114 350.1.13.10 4.2.7.2.686 [id number] [facility] 2023-05-03 20:00:00 2023-05-03 20:00:00 Outpatient R ROMIE ARRIAGA [facility] [id number] [facility] 2023-05-03 00:00:00 2023-05-03 00:00:00 Orders Only Doctor Unassigned, [place] [facility] 1.2.840.114 350.1.13.10 4.2.7.2.686 [id number] [facility] 2023-04-11 11:21:25 2023-04-11 11:21:25 Outpatient [facility] [id number] Kelvin Lieberman 2023-04-08 15:21:49 2023-04-08 15:21:49 Outpatient [facility] [id number] Kelvin Lieberman 2023-03-30 15:42:45 2023-03-30 15:42:45 Outpatient [facility] [id number] Kelvin Lieberman 2023-03-16 10:00:00 2023-03-16 10:30:00 Office Visit Romie Arriaga [facility] 1.2.840.114 350.1.13.10 4.2.7.2.686 [id number] [facility] 2023-03-16 10:00:00 2023-03-16 10:20:44 Outpatient R ROMIE ARRIAGA [facility] [id number] [facility] 2023-02-02 09:30:00 2023-02-02 10:09:30 Ancillary Visit Lucille Anthony Craig L [facility] 1.2.840.114 350.1.13.10 4.2.7.2.686 [id number] [facility] 2023-02-02 00:00:00 2023-02-02 00:00:00 Orders Only Doctor Unassigned, [place] [facility] 1.2.840.114 350.1.13.10 4.2.7.2.686 [id number] [facility] 2023-02-01 11:00:00 2023-02-01 11:45:00 Ancillary Visit Lucille Anthony Craig L [facility] 1.2.840.114 350.1.13.10 4.2.7.2.686 [id number] [facility] 2023-01-27 09:30:00 2023-01-27 11:30:06 Outpatient R KERRI [address] [facility] [id number] [facility] 2023-01-19 10:15:00 2023-01-19 11:41:12 Ancillary Visit Lucille Anthony Kerri L [facility] 1.2.840.114 350.1.13.10 4.2.7.2.686 [id number] [facility] 2023-01-17 09:30:00 2023-01-17 09:30:00 Outpatient R KERRI [facility] [facility] [id number] [facility] 2023-01-14 13:45:00 2023-01-14 13:45:00 Outpatient R KERRI [facility] [id number] [facility] 2023-01-14 10:40:00 2023-01-14 10:40:00 Outpatient FRANK MARIE [id number] Kelvin Lieberman 2023-01-13 10:15:00 2023-01-13 11:14:45 Ancillary Visit Raj Kerri Oliver [facility] 1.2.840.114 350.1.13.10 4.2.7.2.686 [id number] [facility] 2023-01-10 00:00:00 2023-01-10 00:00:00 Case Management Lucille Anthony [facility] 1.2.840.114 350.1.13.10 4.2.7.2.686 [id number] [facility] 2023-01-05 08:45:00 2023-01-05 09:34:29 Ancillary Visit Raj Kerri Oliver [facility] 1.2.840.114 350.1.13.10 4.2.7.2.686 [id number] [facility] 2023-01-05 08:45:00 2023-01-05 09:34:29 Outpatient R KERRI [facility] [facility] [id number] [facility] 2022-12-30 10:15:00 2022-12-30 11:10:52 Ancillary Visit Lucille Anthony Craig L [facility] 1.284.114 350.1.13.10 4.2.7.2.686 [id number] [facility] 2022-12-28 11:00:00 2022-12-28 11:47:44 Ancillary Visit Lucille Anthony Craig L [facility] 1.284.114 350.1.13.10 4.2.7.2.686 [id number] [facility] 2022-12-22 09:50:20 2022-12-22 09:50:20 Outpatient [facility] [id number] Kelvin Lieberman 2022-12-22 00:00:00 2022-12-22 00:00:00 Orders Only Doctor Unassigned, [place] [facility] 1.2.114 350.1.13.10 4.2.7.2.686 [id number] [facility] 2022-12-16 10:15:00 2022-12-16 11:33:58 Ancillary Visit Lucille Anthony Craig L [facility] 1.2840.114 350.1.13.10 4.2.7.2.686 [id number] [facility] 2022-12-13 10:15:00 2022-12-13 11:00:00 Ancillary Visit Lucille Anthony Craig L [facility] 1.284.114 350.1.13.10 4.2.7.2.686 [id number] [facility] 2022-12-09 10:15:00 2022-12-09 11:04:07 Ancillary Visit Lucille Love Craig L [facility] 1.2.840.114 350.1.13.10 4.2.7.2.686 [id number] [facility] 2022-12-07 10:15:00 2022-12-07 11:12:31 Ancillary Visit Lucille Love Craig L [facility] 1.2.840.114 350.1.13.10 4.2.7.2.686 [id number] [facility] 2022-11-30 10:15:00 2022-11-30 11:00:00 Ancillary Visit Stevenson Love Craig L [facility] 1.2.840.114 350.1.13.10 4.2.7.2.686 [id number] [facility] 2022-11-30 09:30:00 2022-11-30 10:21:41 Ancillary Visit Lucille Anthony Craig L [facility] 1.2.840.114 350.1.13.10 4.2.7.2.686 [id number] [facility] 2022-11-29 11:00:00 2022-11-29 11:47:14 Ancillary Visit Stevenson Love Craig L [facility] 1.2.840.114 350.1.13.10 4.2.7.2.686 [id number] [facility] 2022-11-29 10:15:00 2022-11-29 11:11:38 Ancillary Visit Lucille Anthony Craig L [facility] 1.2.840.114 350.1.13.10 4.2.7.2.686 [id number] [facility] 2022-11-25 11:00:00 2022-11-25 11:45:00 Ancillary Visit Lucille Love Craig [facility] 1.2.840.114 350.1.13.10 4.2.7.2.686 [id number] [facility] 2022-11-25 10:15:00 2022-11-25 11:02:22 Ancillary Visit Lucille Anthony Craig L [facility] 1.2.840.114 350.1.13.10 4.2.7.2.686 [id number] [facility] 2022-11-22 11:00:00 2022-11-22 11:31:11 Ancillary Visit Stevenson Love Craig L [facility] 1.2.840.114 350.1.13.10 4.2.7.2.686 [id number] [facility] 2022-11-22 10:15:00 2022-11-22 10:58:25 Outpatient R KERRI [facility] [facility] [id number] [facility] 2022-11-22 10:15:00 2022-11-22 10:58:25 Ancillary Visit Lucille Anthony Craig L [facility] 1.2840.114 350.1.13.10 4.2.7.2.686 [id number] [facility] 2022-11-16 10:15:00 2022-11-16 10:15:00 Outpatient R KERRI [facility]INA [facility] [id number] [facility] 2022-11-11 10:15:00 2022-11-11 11:00:57 Ancillary Visit Lucille Love Craig L [facility] 1.2.840.114 350.1.13.10 4.2.7.2.686 [id number] [facility] 2022-11-11 09:30:00 2022-11-11 10:12:04 Ancillary Visit Lucille Anthony Craig L [facility] 1.2.840.114 350.1.13.10 4.2.7.2.686 [id number] [facility] 2022-11-08 11:00:00 2022-11-08 11:31:38 Ancillary Visit Ivan Stevenson Marx Kerri Pina [facility] 1.2.840.114 350.1.13.10 4.2.7.2.686 [id number] 179 [id number] [facility] 2022-11-08 10:15:00 2022-11-08 11:15:30 Ancillary Visit Lucille Anthony Craig L [facility] 1.2.840.114 350.1.13.10 4.2.7.2.686 [id number] [facility] 2022-11-05 10:15:00 2022-11-05 10:44:41 Ancillary Visit Lucille Love Craig L [facility] 1.2.840.114 350.1.13.10 4.2.7.2.686 [id number] [facility] 2022-11-03 11:00:00 2022-11-03 11:45:00 Ancillary Visit Lucille Love Craig L [facility] 1.2.840.114 350.1.13.10 4.2.7.2.686 [id number] 179 [id number] [facility] 2022-10-28 11:00:00 2022-10-28 11:37:59 Ancillary Visit Lucille Love Craig L [facility] 1.2.840.114 350.1.13.10 4.2.7.2.686 [id number] [facility] 2022-10-28 10:15:00 2022-10-28 11:14:14 Ancillary Visit [facility] 1.2.840.114 350.1.13.10 4.2.7.2.686 [id number] 178 [id number] [facility] 2022-10-26 11:00:00 2022-10-26 11:54:58 Ancillary Visit Lucille Love Craig [facility] 1.2.840.114 350.1.13.10 4.2.7.2.686 [id number] 179 [id number] [facility] 2022-10-26 10:15:00 2022-10-26 11:12:23 Ancillary Visit Lucille Anthony Craig [facility] 1.2.840.114 350.1.13.10 4.2.7.2.686 [id number] 178 [id number] [facility] 2022-10-21 11:15:00 2022-10-21 11:56:16 Ancillary Visit Lucille Love Craig [facility] 1.2.840.114 350.1.13.10 4.2.7.2.686 [id number] 179 [id number] [facility] 2022-10-21 09:30:00 2022-10-21 10:08:26 [address] KERRI PINA [facility] [id number] [facility] 2022-10-21 09:30:00 2022-10-21 10:08:26 Ancillary Visit Lucille Anthony Craig L [facility] 1.2.840.114 350.1.13.10 4.2.7.2.686 [id number] 178 [id number] [facility] 2022-10-19 00:00:00 2022-10-19 00:00:00 Case Management RajAnamikaLucille A [facility] 1.2.840.114 350.1.13.10 4.2.7.2.686 [id number] 178 [id number] [facility] 2022-10-14 11:00:00 2022-10-14 11:56:14 Ancillary Visit Lucille Anthony Craig L [facility] 1.2.840.114 350.1.13.10 4.2.7.2.686 [id number] [facility] 2022-10-14 10:15:00 2022-10-14 10:54:22 Ancillary Visit Yaneth Buckley Craig L [facility] 1.2.840.114 350.1.13.10 4.2.7.2.686 [id number] [facility] 2022-10-13 10:15:00 2022-10-13 11:03:15 Ancillary Visit Lucille Anthony Craig L [facility] 1.2.840.114 350.1.13.10 4.2.7.2.686 [id number] [facility] 2022-10-13 09:30:00 2022-10-13 10:32:21 Ancillary Visit Anabela Kimbrough Craig L [facility] 1.2.840.114 350.1.13.10 4.2.7.2.686 [id number] [facility] 2022-10-08 09:30:00 2022-10-08 11:34:22 Ancillary Visit Anabela Kimbrough Craig L [facility] 1.2840.114 350.1.13.10 4.2.7.2.686 [id number] [facility] 2022-10-06 09:30:00 2022-10-06 10:18:45 Ancillary Visit Anabela Kimbrough Craig L [facility] 1.2.840.114 350.1.13.10 4.2.7.2.686 [id number] [facility] 2022-09-29 09:30:00 2022-09-29 11:59:[address] [facility] [id number] [facility] 2022-09-29 09:30:00 2022-09-29 11:59:30 Ancillary Visit Lucille Anthony Craig L [facility] 1.2.840.114 350.1.13.10 4.2.7.2.686 [id number] [facility] 2022-09-29 00:00:00 2022-09-29 00:00:00 Orders Only Doctor Unassigned, [place] [facility] 1.2.840.114 350.1.13.10 4.2.7.2.686 [id number] [facility] 2022-09-27 11:00:00 2022-09-27 11:59:18 Outpatient R KERRI [facility] [id number] [facility] 2022-09-27 11:00:00 2022-09-27 11:59:18 Ancillary Visit Chelita Che Craig L [facility] 1.2.840.114 350.1.13.10 4.2.7.2.686 [id number] [facility] 2022-09-02 00:00:00 2022-09-02 00:00:00 Orders Only Doctor Unassigned, [place] [facility] 1.2.840.114 350.1.13.10 4.2.7.2.686 [id number] [facility] 2022-09-01 11:00:00 2022-09-01 11:00:00 Outpatient JOSE ANGEL LOZA [facility] [id number] [facility] 2022-08-17 11:30:00 2022-08-17 11:30:00 Outpatient JOSE ANGEL LOZA [facility] [id number] [facility] 2022-07-06 09:27:36 2022-07-06 09:27:36 Outpatient [facility] 101[address] Kelvin Lieberman 2022-02-28 17:05:00 2022-03-30 15:15:00 Inpatient GIULIA GROSS [facility] 2021-05-22 15:40:00 2021-05-22 15:40:00 [id number] 2021-05-07 10:00:00 2021-05-07 10:00:00 [facility] [id number] 2021-03-20 00:00:00 2021-03-20 00:00:00 Orders Only Doctor Unassigned, [place] [facility] 1.2.840.114 350.1.13.10 4.2.7.2.686 [id number] 2021-03-20 00:00:00 2021-03-20 00:00:00 Orders Only Doctor Unassigned, [place] [facility] 1.2.840.114 350.1.13.10 4.2.7.2.686 [id number] [facility] 2021-02-07 09:15:00 2021-02-07 09:15:[address] [facility] [id number] [facility] 2021-01-10 09:30:00 2021-01-10 09:30:00 Outpatient R MILTON, [facility] [id number] [facility] 2020-10-10 15:39:00 2020-10-10 18:33:00 Emergency Darrick [facility] 1.2.840.114 350.1.13.10 4.2.7.2.686 [id number] [id number] 2020-10-10 15:39:00 2020-10-10 18:33:00 [facility] 1.2.840.114 350.1.13.10 4.2.7.2.686 [id number] 084 [id number] [facility] 2020-05-15 21:47:00 2020-05-16 01:20:00 Emergency Margaret Pemberton [facility] 1.2.840.114 350.1.13.10 4.2.7.2.686 [id number] 084 [id number] 2020-05-15 21:47:00 2020-05-16 01:20:00 Emergency Margaret Pemberton [facility] 1.2.840.114 350.1.13.10 4.2.7.2.686 [id number] [facility] Results Test Description Test Time Test Comments Results Result Co mments Source CULTURE, [id number] 14:22:51SPECIMEN NUMBER: [id number] CULTURE, URINE SPECIMEN NUMBER: [id number] SOURCE: URINE REPORT STATUS: FINAL ISOLATE NUMBER 1: ORGANISM: 06/03/2024 >100,000 CFU/ML GRAM NEGATIVE BACILLI IDENTIFICATION: 06/04/2024 ESCHERICHIA COLI E. COLI AMOXICILLIN/CA SENSITIVE <=8/4AMPICILLIN SENSITIVE <=8CEFAZOLIN SENSITIVE <=2CEFTRIAXONE SENSITIVE <=1CIPROFLOXACIN RESISTANT >2LEVOFLOXACIN RESISTANT >4NITROFURANTOIN SENSITIVE <=32PIP/TAZOBAC SENSITIVE <=16TOBRAMYCIN SENSITIVE <=4TRIMETH/SULFA SENSITIVE <= NOTE: NUMBERS DISPLAYED REPRESENT MINIMUM INHIBITORY CONCENTRATION (JEFF) WHICH IS EXPRESSED IN MCG/ML.HEMOGLOBIN [id number] 06:34:23* Test Item Value Reference Range Interpretation Comme [facility] HEMOGLOBIN A1c (test code = 26578) 6.2 % 4.2-5.6 H [employer] GUIDELINES FOR HGB A1C: [...] ALTERNATE TESTING OR LABORATORY CONSULTATION. HEPATITIS PANEL, [id number] 06:33:38* Test Item Value Reference Range Interpretation [...] infection. INTERPRETATION HEPATITIS B: (test code = 33402) (NOTE) Hepatitis B sero logy consistent with past exposure to hepatitis Bvirus with immunity to hepatitis B virus. No evidence of currentacute hepatitis B infection. INTERPRETATION HEPATITIS C: (test code = 03533) (NOTE) Hepatitis C sero logy shows no evidence of exposure to hepatitisC virus at this time. It can take up to 12 months after exposure tothe hepatitis C virus for antibodies to become detectable in the blood in certain patients. HIV 1/2 4TH GEN, RFLX [id number] 06:33:38* Test Item Value Reference Range Interpretation Comme [facility] HIV 1/2 4TH GEN, RFLX CONF ( test code = 3514) NON-REACTIVE NON-REACTIVE HEPATITIS A [id number] 06:33:38* Test Item Value Reference Range Interpretation Comme nts HEPATITIS A IgM (test code = 2728) NON-REACTIVE NON-REACTIVE UNLESS OTHERW ISE INDICATED, ALL TESTING PERFORMED AT [facility] [address] [place] [address] SENIOR LABORATORY TECHNICIAN: JEFF ROCKWELL M.D. CLIA NUMBER [id number] [facility] [place]. [id number] COMPREHENSIVE METABOLIC [id number] 04:26:37* Test Item Value Reference Range Interpretation Comme nts GLUCOSE (test code = 7) 85 MG/DL 70-99 BUN (test code = 2207) 14 MG/DL 8-23 CREATININE (test code = 221) 0.95 MG/DL 0.60-1.30 eGFR (2020 CKD-EPI) (test co de = 34633) 63 ML/MIN/1.73 >60 CALC BUN/CREAT (test code [...] code = 2219) 13 U/L 5-40 LIPID [id number] 04:26:37* Test Item Value Reference Range Interpretation [...] SPECIMENS. FOR MOREINFORMATION, SEE CLIENT ANNOUNCEMENT AT [email or web address] /CalcLDL-C RISK RATIO LDL/HDL (test code = 2238) 0.93 RATIO <3.22 CBC W/AUTO DIFF WITH [id number] 03:50:13* Test Item Value Reference Range Interpretation [...] = 1065) 0.0 /100 WBC'S See_Comment [Automated [employer]] The system which generated this result transmitted [...] 0.00-0.10 ABS NUCLEATED RBCS (test code = 35155) 0.00 K/UL 0.00-0.11 CULTURE, [id number] 12:34:42SPECIMEN NUMBER: [id number] CULTURE, URINE SPECIMEN NUMBER: [id number] SOURCE: URINE REPORT STATUS: FINAL ISOLATE NUMBER 1: ORGANISM: 05/04/2024 >100,000 CFU/ML GRAM NEGATIVE BACILLI IDENTIFICATION: 05/05/2024 ESCHERICHIA COLI E. COLI AMOXICILLIN/CA SENSITIVE <=8/4AMPICILLIN RESISTANT >16CEFAZOLIN SENSITIVE <=2CEFTRIAXONE SENSITIVE <=1CIPROFLOXACIN SENSITIVE <=0.25LEVOFLOXACIN SENSITIVE <=0.5NITROFURANTOIN SENSITIVE <=32PIP/TAZOBAC SENSITIVE <=16TOBRAMYCIN INTERMED 8TRIMETH/SULFA RESISTANT >2/38 NOTE: NUMBERS DISPLAYED REPRESENT MINIMUM INHIBITORY CO NCENTRATION (JEFF) WHICH IS EXPRESSED IN MCG/ML. UNLESS OTHERWISE INDICATED, ALL TESTING PERFORMED AT [facility] [address] [place] [address] SENIOR LABORATORY TECHNICIAN: Moon SUNSH[place] NUMBER [id number] [facility] [place]. [id number] 05:00:52* Test Item Value Reference Range Interpretation Comme nts HEMOGLOBIN A1c (test code = 79697) 6.4 % 4.2-5.6 H [employer] GUIDELINES FOR HGB A1C: [...] PERFORMED AT [facility] [address] [place] [address] SENIOR LABORATORY TECHNICIAN: JEFF ROCKWELL M.D. [place] NUMBER [id number] [facility] [place]. [id number] COMPREHENSIVE METABOLIC [id number] 04:02:13* Test Item Value Reference Range Interpretation Comme nts GLUCOSE (test code = 2217) 99 MG/DL 70-99 BUN (test code = 220) 14 MG/DL 8-23 CREATININE (test code = 221) 0.93 MG/DL 0.60-1.30 eGFR (2020 CKD-EPI) (test co de = 33909) 65 ML/MIN/1.73 >60 CALC BUN/CREAT (test code = 2235) 15 RATIO 6-28 SODIUM (test code = 223) 142 MEQ/L 133-146 POTASSIUM (test code = 2228) 4.8 MEQ/L 3.5-5.4 CHLORIDE (test code = 2215) 107 MEQ/L 95-107 CARBON DIOXIDE (test code = 2206) 23 MEQ/L 19-31 CALCIUM (test code = 2209) 9.3 MG/DL 8.5-10.5 PROTEIN, TOTAL (test code = 2229) 7.7 G/DL 6.1-8.3 ALBUMIN (test code = 2201) 4.4 G/DL 3.5-5.2 CALC GLOBULIN (test code = 2240) 3.3 G/DL 1.9-3.7 CALC A/G RATIO (test code = 2234) 1.3 RATIO 1.0-2.6 BILIRUBIN, TOTAL (test code = 2207) 0.3 MG/DL <=1.2 ALKALINE PHOSPHATASE (test code = 2204) 88 U/L 40-142 AST (test code = 2218) 16 U/L 9-40 ALT (test code = 2219) 11 U/L 5-40 LIPID [id number] 04:02:13* Test Item Value Reference Range Interpretation [...] SPECIMENS. FOR MOREINFORMATION, SEE CLIENT ANNOUNCEMENT AT [email or web address] /CalcLDL-C RISK RATIO LDL/HDL (test code = 2238) 0.82 RATIO <3.22 TSH, THIRD [id number] 06:21:49* Test Item Value Reference Range Interpretation Comme nts TSH, THIRD GENERATION (test code = 2821) 0.991 UIU/ML 0.400-4.100 UNLESS OTHERWISE INDICATED, ALL TESTING PERFORMED AT [facility] [address] [place] [address] SENIOR LABORATORY TECHNICIAN: JEFF ROCKWELL M.D. CLIA NUMBER [id number] [place]. [id number] VITAMIN D, 25 [id number] 06:21:28* Test Item Value Reference Range Interpretation Comme [facility] VITAMIN D, 25 OH (test code = [...] . . . . NG/ML 30-100 LIPID [id number] 06:19:43* Test Item Value Reference Range Interpretation [...] SPECIMENS. FOR MOREINFORMATION, SEE CLIENT ANNOUNCEMENT AT [email or web address] /CalcLDL-C RISK RATIO LDL/HDL (test code = 2237) 0.52 RATIO <3.22 COMPREHENSIVE METABOLIC [id number] 06:19:43* Test Item Value Reference Range Interpretation Comme nts GLUCOSE (test code = 2216) 94 MG/DL 70-99 BUN (test code = 2207) 12 MG/DL 8-23 CREATININE (test code = 2213) 0.74 MG/DL 0.60-1.30 eGFR (2020 CKD-EPI) (test co de = 01902) 86 ML/MIN/1.73 >60 CALC BUN/CREAT (test code [...] <=1.2 ALKALINE PHOSPHATASE (test code = 2204) 109 U/L 40-142 AST (test code = 2218) 17 U/L 9-40 ALT (test code = 2219) 23 U/L 5-40 HEMOGLOBIN [id number] 04:06:54* Test Item Value Reference Range Interpretation Comme nts HEMOGLOBIN A1c (test code = 88983) 6.0 % 4.2-5.6 H [employer] GUIDELINES FOR HGB A1C: [...] OR LABORATORY CONSULTATION. CBC W/AUTO DIFF WITH [id number] 02:50:58* Test Item Value Reference Range Interpretation [...] = 1065) 0.0 /100 WBC'S See_Comment [Automated [employer]] The system which generated this result [...] 0.00-0.10 ABS NUCLEATED RBCS (test code = 43159) 0.00 K/UL 0.00-0.11 CULTURE, [id number] 13:02:33SPECIMEN NUMBER: [id number] CULTURE, URINE SPECIMEN NUMBER: [id number] SPECIMEN COMMENT: URINE SOURCE: URINE REPORT STATUS: FINAL ISOLATE NUMBER 1: ORGANISM: 01/16/2023 >100,000 CFU/ML GRAM NEGATIVE BACILLI IDENTIFICATION: 01/19/2023 ESCHERICHIA COLI E. COLI AMOXICILLIN/CA SENSITIVE <=8/4AMPICILLIN SENSITIVE <=8CEFAZOLIN SENSITIVE <=2CEFTRIAXONE SENSITIVE <=1CIPROFLOXACIN SENSITIVE <=1LEVOFLOXACIN SENSITIVE <=2NITROFURANTOIN SENSITIVE <=32PIP/TAZOBAC SENSITIVE <=16TETRACYCLINE RESISTANT >8TOBRAMYCIN SENSITIVE <=4TRIMETH/SULFA SENSITIVE <=2/38 NOTE: NUMBERS DISPLAYED REPRESENT MINIMUM INHIBITORY CONCENTRATION (JEFF) WHICH IS EXPRESSED IN MCG/ML. [facility] has important pathology staff changes effective 11/17/2022. New pathology staff will provide uninterrupted, excellent patient care and clinical consultation. See URL: [email or web address]. UNLESS OTHERWISE INDICATED, ALL TESTING PERFORMED AT [facility] [address] [place] [address] SENIOR LABORATORY TECHNICIAN: JEFF ROCKWELL M.D. [place] NUMBER [id number] [facility] [place]. [id number], [id number] 13:54:04SPECIMEN NUMBER: [id number] CULTURE, URINE SPECIMEN NUMBER: [id number] SPECIMEN COMMENT: URINE SOURCE: URINE REPORT STATUS: FINAL ISOLATE NUMBER 1: ORGANISM: 07/02/2022 >100,000 CFU/ML GRAM NEGATIVE BACILLI IDENTIFICATION: 07/03/2022 ESCHERICHIA COLI E. COLI AMOXICILLIN/CA INTERMED 16/8AMPICILLIN RESISTANT >16CEFAZOLIN SENSITIVE 8CEFTRIAXONE SENSITIVE <=1CIPROFLOXACIN SENSITIVE <=1LEVOFLOXACIN SENSITIVE <=2NITROFURANTOIN SENSITIVE <=32PIP/TAZOBAC SENSITIVE <=16TETRACYCLINE RESISTANT >8TOBRAMYCIN SENSITIVE <=4TRIMETH/SULFA RESISTANT >2/38 NOTE: NUMBERS DISPLAYED REPRESENT MINIMUM INHIBITORY CONCENTRATION (JEFF) WHICH IS EXPRESSED IN MCG/ML. UNLESS OTHERWISE INDICATED, ALL TESTING PERFORMED [facility]. [address] [place], [place] [address] SENIOR LABORATORY TECHNICIAN: LIZZY GREENWOOD M.D. CLIA NUMBER [id number] [place]. [id number], [id number] 11:37:05SPECIMEN NUMBER: [id number] CULTURE, URINE SPECIMEN NUMBER: [id number] SPECIMEN COMMENT: URINE SOURCE: URINE REPORT STATUS: FINAL ISOLATE NUMBER 1: ORGANISM: 04/30/2022 >100,000 CFU/ML GRAM NEGATIVEBACILLI IDENTIFICATION: 05/01/2022 ESCHERICHIA COLI E. COLI AMOXICILLIN/CA INTERMED 16/8AMPICILLIN RESISTANT >16CEFAZOLIN SENSITIVE <=2CEFTRIAXONE SENSITIVE <=1CIPROFLOXACIN SENSITIVE <=1LEVOFLOXACIN SENSITIVE <=2NITROFURANTOIN SENSITIVE <=32PIP/TAZOBAC SENSITIVE<=16TETRACYCLINE RESISTANT >8TOBRAMYCIN SENSITIVE <=4TRIMETH/SULFA RESISTANT >2/38 NOTE: NUMBERS DISPLAYED REPRESENT MINIMUM INHIBITORY CONCENTRATION (JEFF) WHICH IS EXPRESSED IN MCG/ML. UNLESS OTHERWISE INDICATED, ALL TESTING PERFORMED [facility] [address] [place] [address] SENIOR LABORATORY TECHNICIAN: LIZZY GREENWOOD M.D. CLIA NUMBER [id number] [facility] [place]. [id number] Function Panel (ALB, T.PRO, BILI T, BU/BC, ALT, AST, ALK PHOS)2020-10-10 23:54:00* Test Item Value Reference Range Interpretation Comme nts TOTAL BILI (test code = 4222714009) 0.5 mg/dL 0.1-1.1 BILI UNCON (test code = 3957910923) 0.4 mg/dL 0.1-1.1 BILI CONJ (test code = 9411291744) 0.0 mg/dL 0-0.3 T PROTEIN (test code = 2474982063) 8.3 g/dL 6.3-8.2 H ALBUMIN (test code = 7368567284) 4.5 g/dL 3.5-5 ALK PHOS (test code = 1053576050) 86 U/L 34-122 ALTv (test code = 1742-6) 17 U/L 5-35 AST(SGOT) (test code = 1269492290) 31 U/L 13-40 Lab Interpretation (test cod e = 64280-6) Abnormal [facility] [id number] 23:54:00* Test Item Value Reference Range Interpretation Comme nts LIPASE (test code = 9236499931) 60 U/L 0-220 Lab Interpretation (test cod e = 11484-9) Normal [facility] (NA, K, CL, CO2, GLUCOSE, BUN, CREATININE, CA)2020-10-10 23:54:00* Test Item Value Reference Range Interpretation Comme nts NA (test code = 9010743977) 140 mmol/L 135-145 K (test code = 0983972860) 4.7 mmol/L 3.5-5 CL (test code = 0347324164) 104 mmol/L 98-108 CO2 TOTAL (test code = 7123459954) 28 mmol/L 23-31 AGAP (test code = 0163002680) 2-16 BUN (test code = 0775831883) 17 mg/dL 7-23 GLUCOSE (test code = 3103206096) 92 mg/dL 70-110 CREATININE (test code = 3647302156) 0.81 mg/dL 0.5-1.04 CALCIUM (test code = 4194946078) 9.3 mg/dL 8.6-10.6 eGFR Calculation (Non-) (test code = 6116898005) mL/min/1.73m2 eGFR Calculation () (test code = 5477838504) mL/min/1.73m2 JOHN (test code = JOHN) Association [...] or urine or abnormalities in imaging tests). [facility] HospitalUrinalysis2021-01-22 23:41:00* Test Item Value Reference Range Interpretation Comme nts APPEARANCE (test code = 2635898820) Hazy Clear A COLOR (test code = 8175610954) Yellow Yellow PH (test code = 6032555168) 4.8-8.0 SP GRAVITY (test code = 2034622509) 1.003-1.030 GLU U QUAL (test code = 2343651466) Normal Normal BLOOD (test code = 9516951210) Negative Negative INTERFERENCE FRO M ASCORBIC ACID MAY CAUSE FALSE NEGATIVE RESULT KETONES (test code = 4739962384) Negative Negative PROTEIN (test code = 2887-8) Negative Negative UROBILIN (test code = 8932074019) Normal Normal BILIRUBIN (test code = 3960660683) Negative Negative NITRITE (test code = 2525715581) Negative Negative LEUK NESS (test code = 0512981489) 250/uL Negative A RBC/HPF (test code = 5641703234) See_Comment [Automated [employer]] The system which generated this result transmitted reference range: 0 - 3 HPF. The reference range was not used to interpret this result as normal/abnormal. WBC/HPF (test code = 8956736808) See_Comment [Automated messa ge] The system which generated this result transmitted reference range: 0 - 5 HPF. The reference range was not used to interpret this result as normal/abnormal. BACTERIA (test code = 2699851943) Negative Negative MUCOUS (test code = 7018232123) Slight Negative LPF A SQ EPITH (test code = 3466630399) HPF Lab Interpretation (test code = 75367-9) Abnormal [facility] with [id number] 23:36:00* Test Item Value Reference Range Interpretation [...] g/dL 31.6-35.1 L RDW-SD (test code = 57309-1) 46.5 fL 39-49.9 RDW-CV (test code = 788-0) 14.4 % 12-15.5 PLT (test code = 777-3) See_Comment [Automated messa ge] The system which generated this result transmitted reference range: 166 - 358 10*3/?L. The reference range was not used to interpret this result as normal/abnormal. MPV (test code = 14800-8) 9.5 fL 9.5-12.9 NRBC/100 WBC (test code = 6830745793) See_Comment [Automated me ssage] The system which generated this result transmitted reference range: 0.0 - 10.0 /100 WBCs. The reference range was not used to interpret this result as normal/abnormal. NRBC x10^3 (test code = 7502013488) <0.01 See_Comment [Automated [employer]] The system which generated this result transmitted reference range: 10*3/?L. The reference range was not used to interpret this result as normal/abnormal. GRAN MAT (NEUT) % (test code = 770-8) 53.6 % IMM GRAN % (test code = 6037997234) 0.20 % LYMPH % (test code = 736-9) 36.6 % MONO % (test code = 5905-5) 8.6 % EOS % (test code = 713-8) 0.7 % BASO % (test code = 706-2) 0.3 % GRAN MAT x10^3(ANC) (test code = 0602081945) 3.16 10*3/uL 1.88-7.09 IMM GRAN x10^3 (test code = 2059909576) <0.03 0-0.06 LYMPH x10^3 (test code = 731-0) 2.16 10*3/uL 1.32-3.29 MONO x10^3 (test code = 742-7) 0.51 10*3/uL 0.33-0.92 EOS x10^3 (test code = 711-2) 0.04 10*3/uL 0.03-0.39 BASO x10^3 (test code = 704-7) <0.03 0.01-0.07 Lab Interpretation (test code = 14768-0) Abnormal [facility] HospitalCT Abdomen/Pelvis W/O [id number] 23:05:431. ?Interval enlargement of cystic lesion within the medial segment 7 [id number]. Central fluid attenuation suggests a simple cyst. [...] joint erosion(4:65). No aggressive feature identified.IMPRESSION1. Interval enlargeme nt of cystic lesion within the medial segment 7 [id number]. Central fluid attenuation suggests a simple cyst. Considerconfirmation with multiphasic CT or MRI given interval growth. 2. Status post cholecystectomy.3. Punctate bilateral nonobstructive nephrolithiasis.4. Left adrenal benign adenoma.5. Left ovarian 1.7 cm cyst. Attention on follow-up in 6 weeks.6. Scarring in the ventral abdominal walland small fat-containingumbilical hernia.[facility] HospitalATA [id number] 05:48:00* Test Item Value Reference Range Interpretation Comme nts TROPONIN I (test code = 5237593246) 0.029 ng/mL See_Comment [Automated message] The system [...] biotin. ? Lab Interpretation (test code = 36590-9) Normal [facility] HospitalXR CHEST 1 [id number] 05:11:31No acute cardiopulmonary abnormality. Preliminary Report Dictated [...] this study and agree withthe above report. [facility]. METABOLIC PANEL (80685)2020-05-16 05:05:00* Test Item Value Reference Range Interpretation Comme nts NA (test code = 1805774629) 140 mmol/L 135-145 K (test code = 2860046870) 4.6 mmol/L 3.5-5 CL (test code = 6586289720) 108 mmol/L 98-108 CO2 TOTAL (test code = 8142280071) 29 mmol/L 23-31 AGAP (test code = 5798727993) 2-16 BUN (test code = 7526190517) 18 mg/dL 7-23 GLUCOSE (test code = 4969199159) 108 mg/dL 70-110 CREATININE (test code = 4161022038) 0.92 mg/dL 0.5-1.04 TOTAL BILI (test code = 6517894281) 0.4 mg/dL 0.1-1.1 CALCIUM (test code = 3961916174) 9.3 mg/dL 8.6-10.6 T PROTEIN (test code = 0750467305) 8.1 g/dL 6.3-8.2 ALBUMIN (test code = 4150300047) 4.2 g/dL 3.5-5 ALK PHOS (test code = 0579493083) 71 U/L 34-122 ALTv (test code = 1742-6) 20 U/L 5-35 AST(SGOT) (test code = 5043199651) 50 U/L 13-40 H eGFR Calculation (Non-) (test code = 3480103373) mL/min/1.73m2 eGFR Calculation () (test code = 5343980356) mL/min/1.73m2 JOHN (test code = JOHN) Association [...] imaging tests). Lab Interpretation (test code = 86716-9) [facility] Test Item Value Reference Range Interpretation Comme nts LIPASE (test code = 6131612731) 48 U/L 0-220 Lab Interpretation (test cod e = 89978-1) [facility] RAPID TESTING)2020-05-16 05:01:00* Test Item Value Reference Range Interpretation Comme nts SARS-CoV-2 Rapid ID NOW (test code = 45884-2) Not Detected Not Detected JOHN (test code = JOHN) ID NOW COVID-19 As say is an isothermal nucleic acid amplification test intended for the qualitative detection of nucleic acid from SARS-CoV-2 viral RNA in nasopharyngeal (OR DIRECTOR) specimens. It is used under Emergency Use [...] clinically indicated. Lab Interpretation (test code = 25365-2) [facility] [id number] 04:46:00* Test Item Value Reference Range Interpretation Comme nts WBC (test code = 6690-2) See_Comment [Automated [employer]] The system which generated this result transmitted reference range: 4.30 - 11.10 10*3/?L. The reference range was not used to interpret this result as normal/abnormal. RBC (test code = 789-8) See_Comment [Automated [employer]] The system which generated this result transmitted [...] g/dL 31.6-35.1 L RDW-SD (test code = 30897-6) 49.1 fL 39-49.9 RDW-CV (test code = 788-0) 15.1 % 12-15.5 PLT (test code = 777-3) See_Comment [Automated messa ge] The system which generated this result transmitted reference range: 166 - 358 10*3/?L. The reference range was not used to interpret this result as normal/abnormal. MPV (test code = 30867-8) 9.8 fL 9.5-12.9 NRBC/100 WBC (test code = 6296119844) See_Comment [Automated [employer]] The system which generated this result transmitted reference range: 0.0 - 10.0 /100 WBCs. The reference range was not used to interpret this result as normal/abnormal. NRBC x10^3 (test code = 4807262158) <0.01 See_Comment [Automated messa ge] The system which generated this result transmitted reference range: 10*3/?L. The reference range was not used to interpret this result as normal/abnormal. GRAN MAT (NEUT) % (test code = 770-8) 50.8 % IMM GRAN % (test code = 8207510461) 0.40 % LYMPH % (test code = 736-9) 39.1 % MONO % (test code = 5905-5) 7.7 % EOS % (test code = 713-8) 1.6 % BASO % (test code = 706-2) 0.4 % GRAN MAT x10^3(ANC) (test code = 1421483936) 2.90 10*3/uL 1.88-7.09 IMM GRAN x10^3 (test code = 1766629777) <0.03 0-0.06 LYMPH x10^3 (test code = 731-0) 2.23 10*3/uL 1.32-3.29 MONO x10^3 (test code = 742-7) 0.44 10*3/uL 0.33-0.92 EOS x10^3 (test code = 711-2) 0.09 10*3/uL 0.03-0.39 BASO x10^3 (test code = 704-7) <0.03 0.01-0.07 Lab Interpretation (test code = 32076-3) [facility] Test Item Value Reference Range Interpretation Comme nts APPEARANCE (test code = 8356893212) Clear Clear COLOR (test code = 4691784661) Yellow Yellow PH (test code = 5463883087) 4.8-8.0 SP GRAVITY (test code = 7755165875) 1.003-1.030 GLU U QUAL (test code = 9143001857) Normal Normal BLOOD (test code = 9795845612) Negative Negative INTERFERENCE FRO M ASCORBIC ACID MAY CAUSE FALSE NEGATIVE RESULT KETONES (test code = 2838355615) Negative Negative PROTEIN (test code = 2887-8) Negative Negative UROBILIN (test code = 2744365330) Normal Normal BILIRUBIN (test code = 0115075935) Negative Negative NITRITE (test code = 6220069082) Negative Negative LEUK NESS (test code = 8780149341) Negative Negative RBC/HPF (test code = 2775725372) See_Comment [Automated Guang Lian Shi Dai] The system which generated this result transmitted reference range: 0 - 3 HPF. The reference range was not used to interpret this result as normal/abnormal. WBC/HPF (test code = 6814918108) See_Comment [Automated TUNJI ge] The system which generated this result transmitted reference range: 0 - 5 HPF. The reference range was not used to interpret this result as normal/abnormal. BACTERIA (test code = 4051137404) Few Negative A MUCOUS (test code = 0699725509) Slight Negative LPF A SQ EPITH (test code = 9929940606) HPF Lab Interpretation (test code = 37552-8) Abnormal [facility]"
[2024-11-28] MEDS ORDERED: ACETAMINOPHEN 500 MG TAB ONE (23:45)
[2024-11-28] MEDS ORDERED: ONDANSETRON 4 MG (ODT) TAB ONE (23:50)
--- NOTE | 2024-11-29 01:27 | RAD REPORT ---
EXAM DESCRIPTION: Head C Spine Mpr Wo Con CLINICAL HISTORY: HEADACHE COMPARISON: 10/11/2024 TECHNIQUE: Axial CT of the head obtained from the skull apex to the skull base without contrast. Axia l CT images of the cervical spine obtained without contrast. This exam was performed according to our departmental dose-optimization program, which includes automated exposure control, adjustment of the mA and/or kV according to patient size and/or use of iterative reconstruction technique. FINDINGS: Head CT: No acute intracranial hemorrhage identified. No mass, mass effect, shift of the midline, abnormal ext ra-axial fluid collection or CT evidence of acute ischemic change identified. The ventricular system and sulcal spaces are mildly enlarged compatible with mild cerebral atrophy. Scattered areas of hypodensity throughout the supratentorial white matter are nonspecific and may be related to chronic small vessel ischemic change. Flattening of the diaphragm of sella. The visualized paranasal sinuses and the mastoids are clear. No skull fracture identified. Visualiz ed orbits and globes are unremarkable. Atherosclerotic calcification of the intracranial internal carotid arteries. Cervical CT : Straightening of the cervical lordosis may be secondary to patient positioning. The atlantoaxial, a tlantodental, and occipitoatlantal intervals are preserved. No fracture identified. Vertebral body height preserved. Prevertebral soft tissues are unremarkable. Mild multilevel loss of intervertebral disc height with endplate spondylosis, facet arthropathy, and uncovertebral spurring. Posterior disc osteophyte complex at multiple levels moderately encroach upon the anterior spinal canal. Mild neural foraminal narrowing. Visualized thyroid is unremarkable. No cervical lymphadenopathy. No pneumothorax in the visualized lung apices. IMPRESSION: 1. No acute intracranial abnormality by CT criteria. 2. No acute fracture or subluxation of the cervical spine. 3. Multilevel degenerative change of the cervical spine. Electronically signed by: Yordan Brandon DO 11/29/2024 01:21 AM CDT 4ZDM Due to temporary technical issues with the PACS/[employer] reporting system, reports are being dionna d by the in-house radiologist without review as a courtesy to ensure prompt reporting the interpreting radiologist is fully responsible for the content of the report. Transcribed Date/Time: 11/29/2024 1:26 AM
[2024-11-29] MEDS ORDERED: TRAMADOL HCL 50 MG TAB ONE (02:56)
[2024-11-29] MEDS ORDERED: PROMETHAZINE 25 MG TABLET ONE (02:56)
--- NOTE | 2024-11-29 03:05 | ER ---
Nurse's Notes [facility] Name: Shelia Valentine Age: 73 yrs Sex: Female : 1950 Arrival Date: 11/28/2024 Time: 23:26 Bed 4 Private MD: Diagnosis: Pain in left upper arm;Headache;Pain in left ankle and joints of left foot;Fall on same level, unspecified;Acute fall, acute left ankle sprain Presentation: 11/28 23:32 Chief complaint: EMS states: had a fall c/o L ankle pain radiating to L knee along with al5 L upper arm pain. denies headstrike or LOC. Coronavirus screen: At this time, the client does not indicate any symptoms associated with coronavirus-19. Ebola Screen: No symptoms or risks identified at this time. Initial Sepsis Screen: Does the patient meet any 2 criteria? No. Patient's initial sepsis screen is negative. Does the patient have a suspected source of infection? No. Patient's initial sepsis screen is negative. Risk Assessment: Do you want to hurt yourself or someone else? Patient reports no desire to harm self or others. Onset of symptoms was November 28, 2024. 23:32 Method Of Arrival: EMS: [facility] al5 23:32 Acuity: ADDI 3 al5 Triage Assessment: 23:34 General: Appears in no apparent distress. uncomfortable, well groomed, well developed, al5 Behavior is calm, cooperative. Pain: Complains of pain in anterior aspect of left ankle. EENT: No signs and/or symptoms were reported regarding the EENT system. Neuro: Level of Consciousness is awake, alert, obeys commands, Oriented to person, place, time, situation. Cardiovascular: Capillary refill < 3 seconds Patient's skin is warm and dry. Respiratory: Airway is patent Respiratory effort is even, unlabored, Respiratory pattern is regular, symmetrical. GI: No signs and/or symptoms were reported involving the gastrointestinal system. : No signs and/or symptoms were reported regarding the genitourinary system. Derm: Skin is intact, is healthy with good turgor, Skin is pink, warm \T\ dry. normal. Musculoskeletal: Reports pain in anterior aspect of left ankle. Historical: - Allergies: 23:33 Cipro; al5 23:33 Codeine; al5 23:33 Demerol; al5 23:33 HYDROCODONE; al5 23:33 Morphine; al5 23:33 PENICILLINS; al5 23:33 Sulfa (Sulfonamide Antibiotics); al5 - PMHx: 23:33 Arthritis; CAD; chest pain; CVA; GERD; High Cholesterol; Hypertension; Kidney stones; al5 Osteoporosis; Pancreatitis; Sleep Apnea; - PSHx: 23:33 section; al5 - Immunization history:: Adult Immunizations up to date. - Infectious Disease History:: Denies. - Social history:: Smoking status: Patient denies any tobacco usage or history of. Screenin:41 [facility] ED Fall Risk Assessment (Adult) History of falling in the last 3 months, al5 including since admission Yes- single mechanical fall (1 pt) Confusion or Disorientation No (0 pts) Intoxicated or Sedated No (0 pts) Impaired Gait Yes (1 pt) Mobility Assist Device Used Yes (1 pt) Altered Elimination Yes (1 pt) Score/Fall Risk Level 3 or more points = High Risk Oriented to surroundings, Maintained a safe environment, Hourly rounding (assess needs \T\ fall precautionary measures) done, Used ambulatory aids as needed (educated on \T\ assisted with). Abuse screen: Denies threats or abuse. Denies injuries from another. Nutritional screening: No deficits noted. Tuberculosis screening: No symptoms or risk factors identified. Assessment: 23:41 Reassessment: see triage assessment. al5 11/29 01:02 Reassessment: Patient appears in no apparent distress at this time. No changes from al5 previously documented assessment. Patient and/or family updated on plan of care and expected duration. Pain level reassessed. Patient is alert, oriented x 3, equal unlabored respirations, skin warm/dry/pink. 03:14 Reassessment: Patient appears in no apparent distress at this time. Patient and/or al5 family updated on plan of care and expected duration. Pain level reassessed. Patient is alert, oriented x 3, equal unlabored respirations, skin warm/dry/pink. called granddaughter ana \T\[phone] to notify her of patient discharge, states she will call her mother to come pick patient up to take home. patient given pain medicine at this time Patient states feeling better. 04:09 Reassessment: Patient appears in no apparent distress at this time. No changes from al5 previously documented assessment. Patient and/or family updated on plan of care and expected duration. Pain level reassessed. Patient is alert, oriented x 3, equal unlabored respirations, skin warm/dry/pink. 04:48 Reassessment: attempted to call grand daughter to ask for eta of when someone will take al5 patient home, no answer. 06:21 Reassessment: Patient appears in no apparent distress at this time. No changes from al5 previously documented assessment. Patient and/or family updated on plan of care and expected duration. Pain level reassessed. Patient is alert, oriented x 3, equal unlabored respirations, skin warm/dry/pink. able to get ahold of patient grand daughter, states she will call her mother again to pick patient up to transport home. 06:49 Reassessment: patient discharged home with family via wheelchair. patient given al5 education about her discharge, patient verbalized understanding. Vital Signs: 11/28 23:32 BP 150 / 80; Pulse 76; Resp 16; Temp 98.2; Pulse Ox 97% on R/A; Weight 61.23 kg; Height al5 5 ft. 2 in. ; 11/29 00:00 BP 164 / 81; Pulse 81; Resp 18; Pulse Ox 97% on R/A; al5 00:30 BP 144 / 72; Pulse 72; Resp 17; Pulse Ox 97% on R/A; al5 01:00 BP 140 / 62; Pulse 70; Resp 17; Pulse Ox 96% ; al5 01:30 BP 117 / 66; Pulse 66; Resp 16; Pulse Ox 94% on R/A; al5 02:00 BP 139 / 71; Pulse 71; Resp 16; Pulse Ox 96% on R/A; al5 02:30 BP 135 / 68; Pulse 67; Resp 17; Pulse Ox 97% on R/A; al5 03:00 BP 137 / 73; Pulse 70; Resp 16; Pulse Ox 99% on R/A; al5 06:45 BP 119 / 73; Pulse 63; Resp 16; Pulse Ox 97% on R/A; al5 11/28 23:32 Body Mass Index 24.69 (61.23 kg, 157.48 cm) al5 ED Course: 11/28 23:27 Patient arrived in ED. jj6 23:31 [facility]ave [facility]C [facility]. kb 23:31 Сергей Aguilar MD is Attending Physician. kb 23:31 Jordana Aceves RN is Primary Nurse. al5 23:33 Triage completed. al5 23:41 Arm band placed on right wrist. Patient placed in the treatment room, in view of staff al5 members, on pulse oximetry. 23:41 Patient has correct armband on for positive identification. Bed in low position. Call al5 light in reach. Side rails up X2. Provided Education on: plan of care. 23:42 No provider procedures requiring assistance completed. al5 03 00:13 Humerus Left XRAY In Process Unspecified. EDMS 00:13 Tib Fib Left XRAY In Process Unspecified. EDMS 00:13 Foot Left 3 View XRAY In Process Unspecified. EDMS 00:46 CT Head C Spine In Process Unspecified. EDMS 03:25 Patient did not have IV access during this emergency room visit. al5 Administered Medications: 11/28 23:51 Drug: Acetaminophen PO 500 mg PO once Route: PO; al5 03 03:13 Follow up: Response: No adverse reaction al5 11/28 23:51 Drug: Ondansetron PO 4 mg PO once Route: PO; al5 03 03:13 Follow up: Response: No adverse reaction al5 03:13 Drug: traMADol PO 100 mg PO once Route: PO; al5 04:09 Follow up: Response: No adverse reaction; Pain is decreased al5 03:13 Drug: Promethazine PO 25 mg PO once Route: PO; al5 04:09 Follow up: Response: No adverse reaction al5 Medication: 11/28 23:41 VIS not applicable for this client. al5 Outcome: 11/29 03:05 Discharge ordered by . sp4 06:54 Discharged to home via wheelchair, with family, al5 06:54 Condition: good 06:54 Discharge instructions given to patient, Instructed on discharge instructions, follow up and referral plans. medication usage, Demonstrated understanding of instructions, follow-up care, medications, Prescriptions given X 2, 06:54 Patient left the ED. al5 Signatures: Dispatcher [employer] EDKY Rocio Malave FNP-C FNP-Ckb Jeffries, Jennifer jj6 Сергей Aguilar MD MD sp4 Jordana Aceves RN RN al5 Corrections: (The following items were deleted from the chart) 03:30 03:28 Reassessment: called granddaughter ana Santoro\[phone] to notify her of patient al5 discharge, states she will call her mother to come pick patient up to take home al5 04:10 03:14 Reassessment: Patient appears in no apparent distress at this time. Patient al5 and/or family updated on plan of care and expected duration. Pain level reassessed. Patient is alert, oriented x 3, equal unlabored respirations, skin warm/dry/pink. called granddaughter ana Santoro\[phone] to notify her of patient discharge, states she will call her mother to come pick patient up to take home. patient given pain medicine at this time al5
--- NOTE | 2024-11-29 03:05 | EDPHYS ---
Physician Documentation [facility] Name: Shelia Valentine Age: 73 yrs Sex: Female : 1950 Arrival Date: 11/28/2024 Time: 23:26 Bed 4 Private MD: ED Physician Сергей Aguilar HPI: 11/29 00:17 This 73 yrs old Female presents to ER via EMS with complaints of ANKLE PAIN. kb 00:17 Pt is a 73 year old female who presents for pain to left lower leg and left upper arm kb after fall that occurred 2.5 hours [employer]. Pt has left sided deficits from recent CVA and reports that her left foot twists sometimes and causes her to fall, which is what happened today. Denies hitting head, loc. 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 Historical: - Allergies: 11/28 23:33 Cipro; al5 23:33 Codeine; al5 23:33 Demerol; al5 23:33 HYDROCODONE; al5 23:33 Morphine; al5 23:33 PENICILLINS; al5 23:33 Sulfa (Sulfonamide Antibiotics); al5 - PMHx: 23:33 Arthritis; CAD; chest pain; CVA; GERD; High Cholesterol; Hypertension; Kidney stones; al5 Osteoporosis; Pancreatitis; Sleep Apnea; - PSHx: 23:33 section; al5 - Immunization history:: Adult Immunizations up to date. - Infectious Disease History:: Denies. - Social history:: Smoking status: Patient denies any tobacco usage or history of. ROS: 11/29 00:17 Constitutional: As per HPI kb Exam: 00:17 Constitutional: This is a well developed, well nourished patient who is awake, alert, kb and in no acute distress. Head/Face: Normocephalic, atraumatic. ENT: Moist Mucous membranes Cardiovascular: Regular rate Respiratory: Respirations even and unlabored. No increased work of breathing. Talking in full sentences Skin: Warm, dry with normal turgor. Normal color. 00:17 Neck: External neck: tenderness, that is mild, of the right mid cervical area and right trapezius, 00:17 Musculoskeletal/extremity: Extremities: grossly normal except: noted in the left upper arm, left harp, anterior aspect of left ankle and dorsum of left foot: pain, tenderness, ROM: no acute changes, Circulation is intact in all extremities. Sensation intact. Weight bearing: able to fully bear weight, Vital Signs: 11/28 23:32 BP 150 / 80; Pulse 76; Resp 16; Temp 98.2; Pulse Ox 97% on R/A; Weight 61.23 kg; Height al5 5 ft. 2 in. ; 11/29 00:00 BP 164 / 81; Pulse 81; Resp 18; Pulse Ox 97% on R/A; al5 00:30 BP 144 / 72; Pulse 72; Resp 17; Pulse Ox 97% on R/A; al5 01:00 BP 140 / 62; Pulse 70; Resp 17; Pulse Ox 96% ; al5 01:30 BP 117 / 66; Pulse 66; Resp 16; Pulse Ox 94% on R/A; al5 02:00 BP 139 / 71; Pulse 71; Resp 16; Pulse Ox 96% on R/A; al5 02:30 BP 135 / 68; Pulse 67; Resp 17; Pulse Ox 97% on R/A; al5 03:00 BP 137 / 73; Pulse 70; Resp 16; Pulse Ox 99% on R/A; al5 06:45 BP 119 / 73; Pulse 63; Resp 16; Pulse Ox 97% on R/A; al5 11/28 23:32 Body Mass Index 24.69 (61.23 kg, 157.48 cm) al5 MDM: 11/28 23:31 Medical Screening Exam initiated kb 11/29 00:19 Differential diagnosis: contusion, sprain, fracture, ICH. Data reviewed: vital signs, kb nurses notes. Historians other than the Patient: EMS: [facility]. 00:59 Transition of care: After a detail discussion of the patient's case, care is kb transferred to Сергей Aguilar MD. 02:54 ED course: FINDINGS: Head CT: No acute intracranial hemorrhage identified. No mass, sp4 mass effect, shift of the midline, abnormal extra-axial fluid collection or CT evidence of acute ischemic change identified. The ventricular system and sulcal spaces are mildly enlarged compatible with mild cerebral atrophy. Scattered areas of hypodensity throughout the supratentorial white matter are nonspecific and may be related to chronic small vessel ischemic change. Flattening of the diaphragm of sella. The visualized paranasal sinuses and the mastoids are clear. No skull fracture identified. Visualized orbits and globes are unremarkable. Atherosclerotic calcification of the intracranial internal carotid arteries. Cervical CT : Straightening of the cervical lordosis may be secondary to patient positioning. The atlantoaxial, atlantodental, and occipitoatlantal intervals are preserved. No fracture identified. Vertebral body height preserved. Prevertebral soft tissues are unremarkable. Mild multilevel loss of intervertebral disc height with endplate spondylosis, facet arthropathy, and uncovertebral spurring. Posterior disc osteophyte complex at multiple levels moderately encroach upon the anterior spinal canal. Mild neural foraminal narrowing. Visualized thyroid is unremarkable. No cervical lymphadenopathy. No pneumothorax in the visualized lung apices. IMPRESSION: 1. No acute intracranial abnormality by CT criteria. 2. No acute fracture or subluxation of the cervical spine. 3. Multilevel degenerative change of the cervical spine. Electronically signed by: Yordan Brandon DO 11/29/2024. 02:55 Differential diagnosis: fracture, sprain, foreign body, penetrating trauma, gout, sp4 cellulitis. ED course: CLINICAL HISTORY: Pain. COMPARISON: None. TECHNIQUE: XR HUMERUS LEFT 11/28/2024 11:32 PM CDT FINDINGS: There is no fracture. Joint spaces are preserved. Soft tissues are unremarkable. IMPRESSION: No acute osseous findings.. ED course: CLINICAL HISTORY: Pain. COMPARISON: None. TECHNIQUE: XR HUMERUS LEFT 11/28/2024 11:32 PM CDT FINDINGS: There is no fracture. Joint spaces are preserved. Soft tissues are unremarkable. IMPRESSION: No acute osseous findings. . ED course: CLINICAL HISTORY: Pain COMPARISON: None. TECHNIQUE: XR FOOT 3 OR MORE VIEWS LEFT 11/28/2024 11:32 PM CDT FINDINGS: There is no fracture. Joint spaces are preserved. Soft tissues are unremarkable. IMPRESSION: No acute osseous findings. . 02:58 ED course: CLINICAL HISTORY: Pain COMPARISON: None. TECHNIQUE: XR FOOT 3 OR MORE VIEWS sp4 LEFT 11/28/2024 11:32 PM CDT FINDINGS: There is no fracture. Joint spaces are preserved. Soft tissues are unremarkable. IMPRESSION: No acute osseous findings. ED course: Clinical Indication: Bed Name: 4; PAIN Comparison: None FINDINGS: The 2 views of the left tibia and fibula show normal alignment without acute fracture or dislocation. Limited views of the knee and ankle joints are unremarkable. There are no radiopaque foreign bodies or soft tissue swelling. If there is further concern, followup radiographs or MRI may be performed for complete assessment. IMPRESSION: 1. No acute fractures or dislocations of left tibia and fibula.. 11/28 23:31 Order name: CT Head C Spine 11/28 23:32 Order name: Humerus Left XRAY 11/28 23:32 Order name: Tib Fib Left XRAY 11/28 23:32 Order name: Foot Left 3 View XRAY 11/29 03:07 Order name: Orthopedic shoe; Complete Time: 03:14 sp4 Administered Medications: 11/28 23:51 Drug: Acetaminophen PO 500 mg PO once Route: PO; al5 11/29 03:13 Follow up: Response: No adverse reaction al5 11/28 23:51 Drug: Ondansetron PO 4 mg PO once Route: PO; al5 11/29 03:13 Follow up: Response: No adverse reaction al5 03:13 Drug: traMADol PO 100 mg PO once Route: PO; al5 04:09 Follow up: Response: No adverse reaction; Pain is decreased al5 03:13 Drug: Promethazine PO 25 mg PO once Route: PO; al5 04:09 Follow up: Response: No adverse reaction al5 Disposition: 02:55 Co-signature as Attending Physician, Сергей Aguilar MD I agree with the assessment sp4 and plan of care. I reviewed the patient's care provided by Advanced Practice Provider \T\ agree w/ the diagnosis \T\ care plan. I personally saw the pt \T\ performed a substantive portion of the visit, incldng all aspects of the (History/Exam/Medical Decision Making). Disposition Summary: 11/29/24 03:05 Discharge Ordered Notes: Location: Home sp4 Condition: Stable sp4 Diagnosis - Pain in left upper arm sp4 - Headache sp4 - Pain in left ankle and joints of left foot sp4 - Fall on same level, unspecified sp4 - Acute fall, acute left ankle sprain sp4 Followup: kb - With: Emergency Department - When: As needed - Reason: Worsening of condition Followup: kb - With: Private Physician - When: 2 - 3 days - Reason: Recheck today's complaints, Continuance of care, Re-evaluation by your physician Discharge Instructions: - Discharge Summary Sheet kb - Ankle Sprain, [id number] sp4 Forms: - Patient Portal Instructions sp4 Prescriptions: - Tramadol 50 mg Oral tablet - take 1 tablet ORAL route every 8 hours as needed; 25 tablet; Refills: 0, sp4 Product Selection Permitted - promethazine 25 mg Oral tablet - take 1 tablet ORAL route every 6 hours As needed PRN nausea; 25 tablet; sp4 Refills: 0, Product Selection Permitted 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
--- NOTE | 2024-11-29 05:03 | RAD REPORT ---
CLINICAL HISTORY: Pain. COMPARISON: None. TECHNIQUE: XR HUMERUS LEFT 11/28/2024 11:32 PM CDT FINDINGS: There is no fracture. Joint spaces are preserved. Soft tissues are unremarkable. IMPRESSION: No acute osseous findings. Electronically signed by: Rigoberto Hassan MD 11/29/2024 12:59 AM CDT RP Due to temporary technical issues with the PACS/[employer] reporting system, reports are being dionna d by the in-house radiologist without review as a courtesy to ensure prompt reporting the interpreting radiologist is fully responsible for the content of the report. Transcribed Date/Time: 11/29/2024 5:03 AM
--- NOTE | 2024-11-29 05:03 | RAD REPORT ---
Clinical Indication: Bed Name: 4; PAIN Comparison: None FINDINGS: The 2 views of the left tibia and fibula show normal alignment without acute fracture or dislocation. Limited views of the knee and ankle joints are unremarkable. There are no radiopaque foreign bodies or soft tissue swelling. If there is further concern, followup radiographs or MRI may be performed for complete assessment. IMPRESSION: 1. No acute fractures or dislocations of left tibia and fibula. Electronically signed by: James Phillips MD 11/29/2024 12:27 AM CDT RP Due to temporary technical issues with the PACS/[employer] reporting system, reports are being dionna d by the in-house radiologist without review as a courtesy to ensure prompt reporting the interpreting radiologist is fully responsible for the content of the report. Transcribed Date/Time: 11/29/2024 5:03 AM
--- NOTE | 2024-11-29 05:03 | RAD REPORT ---
CLINICAL HISTORY: Pain COMPARISON: None. TECHNIQUE: XR FOOT 3 OR MORE VIEWS LEFT 11/28/2024 11:32 PM CDT FINDINGS: There is no fracture. Joint spaces are preserved. Soft tissues are unremarkable. IMPRESSION: No acute osseous findings. Electronically signed by: Rigoberto Hassan MD 11/29/2024 12:49 AM CDT RP Due to temporary technical issues with the PACS/[employer] reporting system, reports are being dionna d by the in-house radiologist without review as a courtesy to ensure prompt reporting the interpreting radiologist is fully responsible for the content of the report. Transcribed Date/Time: 11/29/2024 5:02 AM
[2024-11-29 06:58] VITALS: TEMP 98.2
[2024-11-29 07:07] VITALS: BP 119/73; O2SAT 97
== END 2024-11-29 06:54 | disposition home or self-care (01) ==
LOC: ER 23:26
DX: S93.402A Sprain of unspecified ligament of left ankle, initial encounter (principal); M79.622 Pain in left upper arm; R51.9 Headache, unspecified; W18.30XA Fall on same level, unspecified, initial encounter
CPT/HCPCS: 70450; 72125; 99284; Q0162; Q0169